=== PATIENT | male | born 1940 | race American Indian/Alaskan Native ===

== ENCOUNTER 2021-11-21 19:16 | Inpatient (IN) | payer MEDICARE ==
[2021-11-21] MEDS ORDERED: SODIUM CHLORIDE 0.9% 1000 ML 1,000 ML IV ONE (19:36)
--- NOTE | 2021-11-21 19:36 | Emergency Department Report ---
ED Altered Mental Status HPI - General Chief Complaint: Altered Mental Status Stated Complaint: ALTERED MENTAL STATUS Time Seen by Provider: 11/21/21 19:35 Source: EMS Mode of arrival: Stretcher Limitations: No Limitations - History of Present Illness Initial Comments: Patient was brought in by EMS for altered mental status. History is obtained from EMS as the patient is confused. Apparently, family called because the patient was confused. He was allegedly discharged from [facility] 2 days ago and has been confused since then. The did not know why he was in the hospital to begin with. Allegedly, before he went to the hospital he was able to have a cogent conversation and was ambulatory. Now, apparently he cannot support his own weight. He is confused and cannot carry a cogent conversation. Family is not present to provide any further history at this time. There was no history of fall. When asked why the patient is here, the patient simply stares blankly. If you asked specifically if he is in pain or having trouble breathing, he answers no. - Related Data Home Medications Medication Instructions Recorded Confirmed Last Taken Furosemide [Lasix TAB] 80 mg PO TID 11/24/21 11/24/21 Unknown Furosemide [Lasix] 40 mg PO BID 11/24/21 11/24/21 Unknown Gabapentin [Neurontin] 300 mg PO BID 11/24/21 11/24/21 Unknown Insulin Glargine [Lantus VIAL] SQ 11/24/21 Unknown Nepafenac [Ilevro] 1 drop OD DAILY 11/24/21 11/24/21 Unknown Sacubitril/Valsartan [Entresto 1 tab PO BID 11/24/21 11/24/21 Unknown 49-51 mg] Spironolactone [Aldactone] 25 mg PO QDAY 11/24/21 11/24/21 Unknown Tamsulosin [Flomax] 0.4 mg PO QDAY 11/24/21 11/24/21 Unknown carvediloL [Coreg] 6.25 mg PO BID 11/24/21 11/24/21 Unknown Allergies Allergy/AdvReac Type Severity Reaction Status Date / Time No Known Allergies Allergy Verified 11/22/21 05:55 ED Review of Systems ROS: Stated complaint: ALTERED MENTAL STATUS Other details as noted in HPI Comment: Unobtainable due to pts medical conditions ED Past Medical Hx - Past Medical History Hx Hypertension: Yes Hx Diabetes: Yes Additional medical history: Cannot be obtained from the patient secondary to altered mental status - Surgical History Additional Surgical History: Cannot be obtained for the patient secondary to altered mental status - Social History Other Social History: Cannot be obtained for the patient secondary to altered mental status - Medications Home Medications: Home Medications Medication Instructions Recorded Confirmed Last Taken Type Furosemide [Lasix TAB] 80 mg PO TID 11/24/21 11/24/21 Unknown History Furosemide [Lasix] 40 mg PO BID 11/24/21 11/24/21 Unknown History Gabapentin [Neurontin] 300 mg PO BID 11/24/21 11/24/21 Unknown History Insulin Glargine [Lantus VIAL] SQ 11/24/21 Unknown History Nepafenac [Ilevro] 1 drop OD DAILY 11/24/21 11/24/21 Unknown History Sacubitril/Valsartan [Entresto 1 tab PO BID 11/24/21 11/24/21 Unknown History 49-51 mg] Spironolactone [Aldactone] 25 mg PO QDAY 11/24/21 11/24/21 Unknown History Tamsulosin [Flomax] 0.4 mg PO QDAY 11/24/21 11/24/21 Unknown History carvediloL [Coreg] 6.25 mg PO BID 11/24/21 11/24/21 Unknown History ED Physical Exam - General Limitations: Altered Mental Status (Confused), Other (Pulse ox noted and nor mal.) General appearance: alert, in no apparent distress - Head Head exam: Present: atraumatic, normocephalic - Eye Eye exam: Present: normal appearance, EOMI. Absent: scleral icterus - ENT ENT exam: Present: normal orophraynx, normal external ear exam - Neck Neck exam: Present: normal inspection. Absent: meningismus - Respiratory Respiratory exam: Present: normal lung sounds bilaterally. Absent: respiratory distress - Cardiovascular Cardiovascular Exam: Present: regular rate, normal rhythm - GI/Abdominal GI/Abdominal exam: Present: soft. Absent: tenderness - Extremities Exam Extremities exam: Present: normal capillary refill. Absent: calf tenderness - Back Exam Back exam: Absent: CVA tenderness (R), CVA tenderness (L) - Neurological Exam Neurological exam: Present: alert, altered, CN II-XII intact, reflexes normal - Psychiatric Psychiatric exam: Present: normal affect, normal mood - Skin Skin exam: Present: warm, dry ED Course Vital Signs 11/21/21 11/22/21 19:28 09:33 Temperature 98.5 F 98.7 F Pulse Rate 61 51 L Respiratory 18 17 Rate Blood Pressure 124/73 121/67 [Left] O2 Sat by Pulse 94 94 Oximetry - Reevaluation(s) Reevaluation #1: 11/21/21 19:36 EMS was met. History cannot be pain from the patient. Labs and CT were ordered. Old records noted. Reevaluation #2: 11/24/21 09:52 Urine was pending when care was signed out. - Lab Data Result diagrams: 11/23/21 04:48 11/23/21 04:48 Lab Results 11/21/21 11/21/21 11/21/21 Range/Units 19:36 19:36 19:37 WBC 6.7 (4.5-11.0) K/mm3 RBC 3.56 L (3.65-5.03) M/mm3 Hgb 10.8 L (11.8-15.2) gm/dl Hct 34.1 L (35.5-45.6) % MCV 96 H (84-94) fl MCH 30 (28-32) pg MCHC 32 (32-34) % RDW 15.3 H (13.2-15.2) % Plt Count 248 (140-440) K/mm3 Add Manual Diff Complete Total Counted 100 Seg Neuts % (Manual) 79.0 H (40.0-70.0) % Lymphocytes % (Manual) 10.0 L (13.4-35.0) % Monocytes % (Manual) 8.0 H (0.0-7.3) % Basophils % (Manual) 3.0 H (0.0-1.8) % Nucleated RBC % Not Reportable Seg Neutrophils # Man 5.3 (1.8-7.7) K/mm3 Band Neutrophils # 0.0 K/mm3 Lymphocytes # (Manual) 0.7 L (1.2-5.4) K/mm3 Abs React Lymphs (Man) 0.0 K/mm3 Monocytes # (Manual) 0.5 (0.0-0.8) K/mm3 Eosinophils # (Manual) 0.0 (0.0-0.4) K/mm3 Basophils # (Manual) 0.2 H (0.0-0.1) K/mm3 Metamyelocytes # 0.0 K/mm3 Myelocytes # 0.0 K/mm3 Promyelocytes # 0.0 K/mm3 Blast Cells # 0.0 K/mm3 WBC Morphology Not Reportable Hypersegmented Neuts Not Reportable Hyposegmented Neuts Not Reportable Hypogranular Neuts Not Reportable Smudge Cells Not Reportable Toxic Granulation Not Reportable Toxic Vacuolation Not Reportable Dohle Bodies Not Reportable Pelger-Huet Anomaly Not Reportable Luan Rods Not Reportable Platelet Estimate Consistent w auto Clumped Platelets Not Reportable Plt Clumps, EDTA Not Reportable Large Platelets Not Reportable Giant Platelets Not Reportable Platelet Satelliting Not Reportable Plt Morphology Comment Not Reportable RBC Morphology Normal Dimorphic RBCs Not Reportable Polychromasia Not Reportable Hypochromasia Not Reportable Poikilocytosis Not Reportable Anisocytosis Not Reportable Microcytosis Not Reportable Macrocytosis Not Reportable Spherocytes Not Reportable Pappenheimer Bodies Not Reportable Sickle Cells Not Reportable Target Cells Not Reportable Tear Drop Cells Not Reportable Ovalocytes Not Reportable Helmet Cells Not Reportable [place] Bodies Not Reportable [place] Rings Not Reportable Star Cells Not Reportable Bite Cells Not Reportable Crenated Cell Not Reportable Elliptocytes Not Reportable Acanthocytes (Spur) Not Reportable Rouleaux Not Reportable Hemoglobin C Crystals Not Reportable Schistocytes Not Reportable Malaria parasites Not Reportable Kalia Bodies Not Reportable Hem Pathologist Commnt No Sodium 142 (137-145) mmol/L Potassium 3.2 L (3.6-5.0) mmol/L Chloride 100.9 (98-107) mmol/L Carbon Dioxide 28 (22-30) mmol/L Anion Gap 16 mmol/L BUN 23 H (9-20) mg/dL Creatinine 1.4 H (0.8-1.3) mg/dL Estimated GFR 59 ml/min BUN/Creatinine Ratio 16 % Glucose 210 H (75-100) mg/dL Calcium 8.2 L (8.4-10.2) mg/dL Total Bilirubin 0.80 (0.1-1.2) mg/dL AST 45 H (5-40) units/L ALT 32 (7-56) units/L Alkaline Phosphatase 133 H (35-129) units/L Ammonia (25-60) umol/L Total Protein 6.5 (6.3-8.2) g/dL Albumin 3.0 L (3.9-5) g/dL Albumin/Globulin Ratio 0.9 % TSH (0.270-4.200) mlU/mL Urine Color Yellow (Yellow) Urine Turbidity Slightly-cloudy (Clear) Urine pH 5.0 (5.0-7.0) Ur Specific [place] 1.010 (1.003-1.030) Urine Protein 30 mg/dl (Negative) mg/dL Urine Glucose (UA) 50 (Negative) mg/dL Urine Ketones Tr (Negative) mg/dL Urine Blood Lg (Negative) Urine Nitrite Neg (Negative) Urine Bilirubin Neg (Negative) Urine Urobilinogen < 2.0 (<2.0) mg/dL Ur Leukocyte Esterase Sm (Negative) Urine WBC (Auto) 48.0 H (0.0-6.0) /HPF Urine RBC (Auto) > 182.0 (0.0-6.0) /HPF U Epithel Cells (Auto) 1.0 (0-13.0) /HPF Urine Mucus Few /HPF 11/21/21 11/21/21 Range/Units 19:37 19:37 WBC (4.5-11.0) K/mm3 RBC (3.65-5.03) M/mm3 Hgb (11.8-15.2) gm/dl Hct (35.5-45.6) % MCV (84-94) fl MCH (28-32) pg MCHC (32-34) % RDW (13.2-15.2) % Plt Count (140-440) K/mm3 Add Manual Diff Total Counted Seg Neuts % (Manual) (40.0-70.0) % Lymphocytes % (Manual) (13.4-35.0) % Monocytes % (Manual) (0.0-7.3) % Basophils % (Manual) (0.0-1.8) % Nucleated RBC % Seg Neutrophils # Man (1.8-7.7) K/mm3 Band Neutrophils # K/mm3 Lymphocytes # (Manual) (1.2-5.4) K/mm3 Abs React Lymphs (Man) K/mm3 Monocytes # (Manual) (0.0-0.8) K/mm3 Eosinophils # (Manual) (0.0-0.4) K/mm3 Basophils # (Manual) (0.0-0.1) K/mm3 Metamyelocytes # K/mm3 Myelocytes # K/mm3 Promyelocytes # K/mm3 Blast Cells # K/mm3 WBC Morphology Hypersegmented Neuts Hyposegmented Neuts Hypogranular Neuts Smudge Cells Toxic Granulation Toxic Vacuolation Dohle Bodies Pelger-Huet Anomaly Luan Rods Platelet Estimate Clumped Platelets Plt Clumps, EDTA Large Platelets Giant Platelets Platelet Satelliting Plt Morphology Comment RBC Morphology Dimorphic RBCs Polychromasia Hypochromasia Poikilocytosis Anisocytosis Microcytosis Macrocytosis Spherocytes Pappenheimer Bodies Sickle Cells Target Cells Tear Drop Cells Ovalocytes Helmet Cells [place] Bodies [place] Rings Star Cells Bite Cells Crenated Cell Elliptocytes Acanthocytes (Spur) Rouleaux Hemoglobin C Crystals Schistocytes Malaria parasites Kalia Bodies Hem Pathologist Commnt Sodium (137-145) mmol/L Potassium (3.6-5.0) mmol/L Chloride (98-107) mmol/L Carbon Dioxide (22-30) mmol/L Anion Gap mmol/L BUN (9-20) mg/dL Creatinine (0.8-1.3) mg/dL Estimated GFR ml/min BUN/Creatinine Ratio % Glucose (75-100) mg/dL Calcium (8.4-10.2) mg/dL Total Bilirubin (0.1-1.2) mg/dL AST (5-40) units/L ALT (7-56) units/L Alkaline Phosphatase (35-129) units/L Ammonia 26.0 (25-60) umol/L Total Protein (6.3-8.2) g/dL Albumin (3.9-5) g/dL Albumin/Globulin Ratio % TSH 4.800 H (0.270-4.200) mlU/mL Urine Color (Yellow) Urine Turbidity (Clear) Urine pH (5.0-7.0) Ur Specific [place] (1.003-1.030) Urine Protein (Negative) mg/dL Urine Glucose (UA) (Negative) mg/dL Urine Ketones (Negative) mg/dL Urine Blood (Negative) Urine Nitrite (Negative) Urine Bilirubin (Negative) Urine Urobilinogen (<2.0) mg/dL Ur Leukocyte Esterase (Negative) Urine WBC (Auto) (0.0-6.0) /HPF Urine RBC (Auto) (0.0-6.0) /HPF U Epithel Cells (Auto) (0-13.0) /HPF Urine Mucus /HPF - Medical Decision Making Patient presents with altered mental status. Labs had been completed. His metabolic work-up was grossly unremarkable. However UA was still pending. At this time, we will await UA. Care has been signed out pending urine evaluation. If he has a urinary tract infection, antibiotics would be indicated. If his urine is clean, he could still be potentially discharged. He does not appear to be septic. He does not have any vital sign instability. There is no evidence of endorgan damage. Critical Care Time: No Critical care attestation.: If time is entered above; I have spent that time in minutes in the direct care of this critically ill patient, excluding procedure time. ED Disposition Clinical Impression: Metabolic encephalopathy, Urinary tract infection, ROSANA (acute kidney injury), Hypokalemia Disposition: ADMITTED INPATIENT Is pt being admited?: No Condition: Stable
[2021-11-21 19:55] LABS: Hematocrit 34.1 % (35.5-45.6); Hemoglobin 10.8 gm/dl (11.8-15.2); Mean Corpuscular HGB Conc 32 % (32-34); Mean Corpuscular Volume 96 fl (84-94); Platelet Count 248 K/mm3 (140-440); Red Blood Count 3.56 M/mm3 (3.65-5.03); Red Cell Distribution Width 15.3 % (13.2-15.2)
[2021-11-21 20:18] LABS: Calcium 8.2 mg/dL (8.4-10.2)
[2021-11-21 20:28] LABS: Total Cells Counted 100
[2021-11-21 20:29] LABS: Platelet Estimate Consistent w Auto; RBC Morphology Normal
--- NOTE | 2021-11-21 21:07 | Cat Scan Report ---
CT BRAIN: 11/21/2021 INDICATION / CLINICAL INFORMATION: Altered mental status. Technologist note:Scanned twice to try to get best images possible. Second scan stood in the room to hold arm down but refused to stop moving COMPARISON: None available. FINDINGS: BRAIN/INTRACRANIAL STRUCTURES: Unenhanced CT images of the brain were obtained. Significant patient motion artifact is present. With good effort by the technologist, diagnostic yon ges were obtained. There is no evidence of acute abnormality. Ventricles and sulci are prominent in size, consistent wit h diffuse cerebral atrophy. There is no evidence of large vessel territory ischemic injury, hemorrhag e, or mass. There are no abnormal extra-axial fluid collections. EXTRACRANIAL STRUCTURES: Unremarkable. IMPRESSION: No acute abnormality. All CT scans at this location are performed using dose reduction to ALARA by means of automated expos ure control. Signer Name: Braydon Burks MD Signed: 11/21/2021 9:02 PM Workstation Name: [id number]
[2021-11-22] MEDS ORDERED: POTASSIUM CHLORIDE ER 20 MEQ TAB PO ONE (01:23)
[2021-11-22 04:28] LABS: Bilirubin,Urine NEG (Negative); Blood,Urine LG (Negative); Color,Urine Yellow (Yellow); Mucus,Urine FEW /HPF; Urobilinogen,Urine < 2.0 mg/dL (<2.0)
[2021-11-22 04:30] LABS: RBC,Urine > 182.0 /HPF (0.0-6.0)
[2021-11-22] MEDS ORDERED: CEFEPIME/NS 2 GM/100 ML 2 GM/100 ML BAG IV ONE (05:32)
--- NOTE | 2021-11-22 05:38 | Event Note ---
Date: 11/22/[address] Chou This is an 81-year-old male who was brought in by family due to altered mental status/confusion. Patient was apparently seen in another hospital and was discharged without a diagnosis. Labs revealed several mild abnormalities including ROSANA with mildly elevated creatinine and hypokalemia with potassium of 3.2. There is no leukocytosis or anemia. Urinalysis is still pending. Urinalysis finally returns revealing 48 WBCs and greater than 182 RBCs consistent with urinary tract infection. I have ordered IV cefepime given that the patient has recent hospital exposure. When I went to reassess the patient to speak about the results he is very altered and is oriented only to person. He is unable to participate in a conversation with me. Given evidence of urine tract infection in a patient with metabolic encephalopathy and several lab abnormalities will admit the patient to medicine for further management and work-up as needed. Given that he is altered I have ordered Noncon CT of the abdomen pelvis to assess for evidence of kidney stones and or obstruction At 5:30 AM I spoke with Dr. Lora, the on-call hospitalist regarding the case. He accepts the patient for admission and will assume care.
[2021-11-22] MEDS ORDERED: HYDROmorphone 1 MG/1 ML INJ IV PRN (05:48)
[2021-11-22] MEDS ORDERED: DEXTROSE 50% IN WATER (25GM) 50 ML SYRINGE IV PRN (05:48)
[2021-11-22] MEDS ORDERED: ACETAMINOPHEN 325 MG TAB PO PRN (05:48)
[2021-11-22] MEDS ORDERED: ALBUTEROL 2.5 MG/3 ML NEBU IH PRN (05:48)
--- NOTE | 2021-11-22 05:56 | History and Physical Report ---
History of Present Illness Date of examination: 11/22/21 Date of admission: 11/22/21 Chief complaint: Altered mental status History of present illness: 81-year-old male with past medical history of hypertension and diabetes was brought to the emergency room in by family due to altered mental status/confusion. Patient discharged from [facility] 2 days ago and has been confused since then. The did not know why he was in the hospital to begin with. Allegedly, before he went to the hospital he was able to have a cogent conversation and was ambulatory. Now, apparently he cannot support his own weight. He is confused and cannot carry a cogent conversation. Labs revealed several mild abnormalities including ROSANA with mildly elevated creatinine and hypokalemia with potassium of 3.2. There is no leukocytosis or anemia. Urinalysis shows UTI. Initial CT scan of the head shows no acute intracranial abnormality Past History Past Medical History: diabetes, hypertension Medications and Allergies Allergies Allergy/AdvReac Type Severity Reaction Status Date / Time No Known Allergies Allergy Unverified 11/21/21 19:22 Active Meds: Active Medications Cefepime HCl (Cefepime/Ns 2 Gm/100 Ml) 2 gm in 100 mls @ 200 mls/hr IV ONCE ONE; Protocol Stop: 11/22/21 06:01 Review of Systems All systems: negative Constitutional: lethargy Neurological: change in mentation Exam - Constitutional Vitals: Temp Pulse Resp BP Pulse Ox 98.5 F 61 18 124/73 94 11/21/21 19:28 11/21/21 19:28 11/21/21 19:28 11/21/21 19:28 11/21/21 19:28 General appearance: Present: no acute distress, well-nourished - EENT Eyes: Present: PERRL ENT: hearing intact, clear oral mucosa - Neck Neck: Present: supple, normal ROM - Respiratory Respiratory effort: normal Respiratory: bilateral: CTA - Cardiovascular Heart Sounds: Present: S1 & S2. Absent: rub, click - Extremities Extremities: pulses symmetrical, No edema Peripheral Pulses: within normal limits - Abdominal General gastrointestinal: Present: soft, non-tender, non-distended, normal bowel sounds Male genitourinary: Present: normal - Integumentary Integumentary: Present: clear, warm, dry - Musculoskeletal Musculoskeletal: strength equal bilaterally, other (Patient is altered mental status) - Psychiatric Psychiatric: other (Patient is confused altered mental status) - Neurologic Neurologic: CNII-XII intact, moves all extremities Results - Labs CBC & Chem 7: 11/21/21 19:36 11/21/21 19:36 Labs: Laboratory Last Values WBC 6.7 K/mm3 (4.5-11.0) 11/21/21 19:36 RBC 3.56 M/mm3 (3.65-5.03) L 11/21/21 19:36 Hgb 10.8 gm/dl (11.8-15.2) L 11/21/21 19:36 Hct 34.1 % (35.5-45.6) L 11/21/21 19:36 MCV 96 fl (84-94) H 11/21/21 19:36 MCH 30 pg (28-32) 11/21/21 19:36 MCHC 32 % (32-34) 11/21/21 19:36 RDW 15.3 % (13.2-15.2) H 11/21/21 19:36 Plt Count 248 K/mm3 (140-440) 11/21/21 19:36 Add Manual Diff Complete 11/21/21 19:36 Total Counted 100 11/21/21 19:36 Seg Neuts % (Manual) 79.0 % (40.0-70.0) H 11/21/21 19:36 Lymphocytes % (Manual) 10.0 % (13.4-35.0) L 11/21/21 19:36 Monocytes % (Manual) 8.0 % (0.0-7.3) H 11/21/21 19:36 Basophils % (Manual) 3.0 % (0.0-1.8) H 11/21/21 19:36 Nucleated RBC % Not Reportable 11/21/21 19:36 Seg Neutrophils # Man 5.3 K/mm3 (1.8-7.7) 11/21/21 19:36 Band Neutrophils # 0.0 K/mm3 11/21/21 19:36 Lymphocytes # (Manual) 0.7 K/mm3 (1.2-5.4) L 11/21/21 19:36 Abs React Lymphs (Man) 0.0 K/mm3 11/21/21 19:36 Monocytes # (Manual) 0.5 K/mm3 (0.0-0.8) 11/21/21 19:36 Eosinophils # (Manual) 0.0 K/mm3 (0.0-0.4) 11/21/21 19:36 Basophils # (Manual) 0.2 K/mm3 (0.0-0.1) H 11/21/21 19:36 Metamyelocytes # 0.0 K/mm3 11/21/21 19:36 Myelocytes # 0.0 K/mm3 11/21/21 19:36 Promyelocytes # 0.0 K/mm3 11/21/21 19:36 Blast Cells # 0.0 K/mm3 11/21/21 19:36 WBC Morphology Not Reportable 11/21/21 19:36 Hypersegmented Neuts Not Reportable 11/21/21 19:36 Hyposegmented Neuts Not Reportable 11/21/21 19:36 Hypogranular Neuts Not Reportable 11/21/21 19:36 Smudge Cells Not Reportable 11/21/21 19:36 Toxic Granulation Not Reportable 11/21/21 19:36 Toxic Vacuolation Not Reportable 11/21/21 19:36 Dohle Bodies Not Reportable 11/21/21 19:36 Pelger-Huet Anomaly Not Reportable 11/21/21 19:36 Luan Rods Not Reportable 11/21/21 19:36 Platelet Estimate Consistent w auto 11/21/21 19:36 Clumped Platelets Not Reportable 11/21/21 19:36 Plt Clumps, EDTA Not Reportable 11/21/21 19:36 Large Platelets Not Reportable 11/21/21 19:36 Giant Platelets Not Reportable 11/21/21 19:36 Platelet Satelliting Not Reportable 11/21/21 19:36 Plt Morphology Comment Not Reportable 11/21/21 19:36 RBC Morphology Normal 11/21/21 19:36 Dimorphic RBCs Not Reportable 11/21/21 19:36 Polychromasia Not Reportable 11/21/21 19:36 Hypochromasia Not Reportable 11/21/21 19:36 Poikilocytosis Not Reportable 11/21/21 19:36 Anisocytosis Not Reportable 11/21/21 19:36 Microcytosis Not Reportable 11/21/21 19:36 Macrocytosis Not Reportable 11/21/21 19:36 Spherocytes Not Reportable 11/21/21 19:36 Pappenheimer Bodies Not Reportable 11/21/21 19:36 Sickle Cells Not Reportable 11/21/21 19:36 Target Cells Not Reportable 11/21/21 19:36 Tear Drop Cells Not Reportable 11/21/21 19:36 Ovalocytes Not Reportable 11/21/21 19:36 Helmet Cells Not Reportable 11/21/21 19:36 Christie-[place] Bodies Not Reportable 11/21/21 19:36 [place] Rings Not Reportable 11/21/21 19:36 Star Cells Not Reportable 11/21/21 19:36 Bite Cells Not Reportable 11/21/21 19:36 Crenated Cell Not Reportable 11/21/21 19:36 Elliptocytes Not Reportable 11/21/21 19:36 Acanthocytes (Spur) Not Reportable 11/21/21 19:36 Rouleaux Not Reportable 11/21/21 19:36 Hemoglobin C Crystals Not Reportable 11/21/21 19:36 Schistocytes Not Reportable 11/21/21 19:36 Malaria parasites Not Reportable 11/21/21 19:36 Kalia Bodies Not Reportable 11/21/21 19:36 Hem Pathologist Commnt No 11/21/21 19:36 Sodium 142 mmol/L (137-145) 11/21/21 19:36 Potassium 3.2 mmol/L (3.6-5.0) L 11/21/21 19:36 Chloride 100.9 mmol/L (98-107) 11/21/21 19:36 Carbon Dioxide 28 mmol/L (22-30) 11/21/21 19:36 Anion Gap 16 mmol/L 11/21/21 19:36 BUN 23 mg/dL (9-20) H 11/21/21 19:36 Creatinine 1.4 mg/dL (0.8-1.3) H 11/21/21 19:36 Estimated GFR 59 ml/min 11/21/21 19:36 BUN/Creatinine Ratio 16 % 11/21/21 19:36 Glucose 210 mg/dL (75-100) H 11/21/21 19:36 Calcium 8.2 mg/dL (8.4-10.2) L 11/21/21 19:36 Total Bilirubin 0.80 mg/dL (0.1-1.2) 11/21/21 19:36 AST 45 units/L (5-40) H 11/21/21 19:36 ALT 32 units/L (7-56) 11/21/21 19:36 Alkaline Phosphatase 133 units/L (35-129) H 11/21/21 19:36 Ammonia 26.0 umol/L (25-60) 11/21/21 19:37 Total Protein 6.5 g/dL (6.3-8.2) 11/21/21 19:36 Albumin 3.0 g/dL (3.9-5) L 11/21/21 19:36 Albumin/Globulin Ratio 0.9 % 11/21/21 19:36 TSH 4.800 mlU/mL (0.270-4.200) H 11/21/21 19:37 Urine Color Yellow (Yellow) 11/21/21 19:37 Urine Turbidity Slightly-cloudy (Clear) 11/21/21 19:37 Urine pH 5.0 (5.0-7.0) 11/21/21 19:37 Ur Specific [place] 1.010 (1.003-1.030) 11/21/21 19:37 Urine Protein 30 mg/dl mg/dL (Negative) 11/21/21 19:37 Urine Glucose (UA) 50 mg/dL (Negative) 11/21/21 19:37 Urine Ketones Tr mg/dL (Negative) 11/21/21 19:37 Urine Blood Lg (Negative) 11/21/21 19:37 Urine Nitrite Neg (Negative) 11/21/21 19:37 Urine Bilirubin Neg (Negative) 11/21/21 19:37 Urine Urobilinogen < 2.0 mg/dL (<2.0) 11/21/21 19:37 Ur Leukocyte Esterase Sm (Negative) 11/21/21 19:37 Urine WBC (Auto) 48.0 /HPF (0.0-6.0) H 11/21/21 19:37 Urine RBC (Auto) > 182.0 /HPF (0.0-6.0) 11/21/21 19:37 U Epithel Cells (Auto) 1.0 /HPF (0-13.0) 11/21/21 19:37 Urine Mucus Few /HPF 11/21/21 19:37 - Imaging and Cardiology CT Scan - head: report reviewed Assessment and Plan VTE prophylaxis?: Chemical Plan of care discussed with patient/family: Yes - Patient Problems (1) Acute metabolic encephalopathy Current Visit: Yes Status: Acute Plan to address problem: Admit the patient to the medical floor. Metabolic encephalopathy most likely secondary to UTI and ROSANA oxygen via nasal cannula 3 L/min half-normal saline at the rate of 100 cc/h. Rocephin 2 g IV daily. We do the blood culture urine culture. If needed will consult neurology for evaluation (2) Diabetes Current Visit: Yes Status: Acute Plan to address problem: Accu-Chek before meals and at bedtime with moderate dose Humalog coverage. Diabetic education. 1800 kcal ADA diet. Recheck BMP in the morning (3) High blood pressure Current Visit: Yes Status: Acute Plan to address problem: Hydralazine 10 mg IV every 6 hours as needed. We will monitor the blood pressure closely (4) ROSANA (acute kidney injury) Current Visit: Yes Status: Acute Plan to address problem: Avoid nephrotoxic drug. Half-normal saline at the rate of 100 cc/h. Renally dose medication. Recheck BMP in the morning (5) Hypokalemia Current Visit: Yes Status: Acute Plan to address problem: Potassium is supplemented. Recheck BMP in the morning (6) Urinary tract infection Current Visit: Yes Status: Acute Plan to address problem: Rocephin 2 g IV daily. We do the blood culture urine culture. (7) DVT prophylaxis Current Visit: Yes Status: Acute Plan to address problem: Heparin 5000 units subcu every 8 hours for DVT prophylaxis. Pepcid 20 mg p.o. twice daily for GI prophylaxis. Patient is a full code
[2021-11-22] MEDS ORDERED: hydrALAZINE 20 MG/1 ML INJ IV PRN (05:58)
--- NOTE | 2021-11-22 07:55 | Cat Scan Report ---
CT abdomen pelvis wo con INDICATION / CLINICAL INFORMATION: U.T.I., possible renal stone(s). TECHNIQUE: Axial CT imaging of abdomen and pelvis was obtained without contrast. Coronal and sagittal reformatte d imaging obtained and reviewed. All CT scans at this location are performed using CT dose reduction for ALARA by means of automated exposure control. COMPARISON: None available. FINDINGS: CT abdomen without contrast demonstrates grossly normal appearance of the liver, spleen, pancreas, le ft kidney, and adrenal glands. There is a 2.9 cm hypodense mass arising from the posterior aspect of the right kidney. There is a 2.5 cm hypodense mass arising from the medial aspect of the right kidney I suspect both of these right renal masses will represent cysts, but density measurements are around 30 HU. Both right renal masses should be further evaluated with renal ultrasound to determine if cys tic or solid. No intrarenal calculi or obstruction. Abdominal aorta is unremarkable. CT pelvis without contrast demonstrates large fecal impaction within the rectum. The transverse diame ter of the distended rectum is 9 cm. Large amount of retained stool is noted throughout the remainder of the colon. Otherwise the GI tract is unremarkable. Prostate gland is mildly enlarged. The appendix is not identified and presumably has been removed. Visualized lung bases show groundglass opacities throughout both bases suspicious for multifocal haseeb l pneumonia. The left hemidiaphragm is markedly elevated. Review of osseous structures demonstrates screws within the right hip. There is old appearing evert tanna fracture of L2. 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 No ac [place] skeletal abnormality of significance is noted. IMPRESSION: 1. Groundglass opacities are present throughout both visualized lung bases highly suggestive for Covi d pneumonia. Please correlate clinically. 2. Large fecal impaction within the rectum. The rectum has a transverse diameter of 9 cm. 3. Incidentally noted are 2 right renal masses which do not meet criteria for simple cyst on CT scan. Recommend right renal ultrasound when the patient is clinically able to determine if cystic or solid . 4. Markedly elevated left hemidiaphragm. 5. Mild/moderate enlargement of the prostate gland. 6. Old appearing compression fracture of L2 without retropulsion. Signer Name: Neisha Madrigal MD Signed: 11/22/2021 7:51 AM Workstation Name: [id number]
[2021-11-22] MEDS: HEPARIN 5,000 UNIT/1 ML VIAL SUB-Q SCH ×3 (08:08→22:29)
[2021-11-22] MEDS: cefTRIAXone/NS 2 GM/100 ML 2 GM/100 ML BAG IV SCH (08:09)
[2021-11-22] MEDS: INSULIN LISPRO 100 UNIT/ML SUB-Q SCH ×4 (08:09→22:29)
[2021-11-22] MEDS: IPRATROPIUM/ALBUTEROL SULFATE 3 ML AMPUL.NEB IH SCH ×3 (08:10→23:17)
[2021-11-22] MEDS: SODIUM CHLORIDE 0.45% 1000 ML 1,000 ML IV SCH (10:17)
[2021-11-22] MEDS: MORPHINE 2 MG/1 ML INJ IV PRN (22:43)
[2021-11-23 05:41] LABS: Basophils % (Auto) 0.6 % (0.0-1.8); Eosinophils % (Auto) 0.1 % (0.0-4.3); Hematocrit 30.9 % (35.5-45.6); Hemoglobin 9.8 gm/dl (11.8-15.2); Lymphocytes # (Auto) 1.1 K/mm3 (1.2-5.4); Lymphocytes % (Auto) 13.4 % (13.4-35.0); Mean Corpuscular HGB Conc 32 % (32-34); Mean Corpuscular Volume 96 fl (84-94); Monocytes # (Auto) 0.7 K/mm3 (0.0-0.8); Monocytes % (Auto) 9.4 % (0.0-7.3); Platelet Count 219 K/mm3 (140-440); Red Blood Count 3.22 M/mm3 (3.65-5.03); Red Cell Distribution Width 14.8 % (13.2-15.2)
[2021-11-23] MEDS: cefTRIAXone/NS 2 GM/100 ML 2 GM/100 ML BAG IV SCH (05:44)
[2021-11-23] MEDS: HEPARIN 5,000 UNIT/1 ML VIAL SUB-Q SCH ×3 (05:44→22:04)
[2021-11-23] MEDS: SODIUM CHLORIDE 0.45% 1000 ML 1,000 ML IV SCH ×2 (06:01→18:53)
[2021-11-23 06:03] LABS: BUN/Creatinine Ratio 18; Blood Urea Nitrogen 24 mg/dL (9-20); Calcium 8.1 mg/dL (8.4-10.2); Hemolysis Index 8
[2021-11-23] MEDS: INSULIN LISPRO 100 UNIT/ML SUB-Q SCH ×4 (08:22→22:04)
[2021-11-23] MEDS: IPRATROPIUM/ALBUTEROL SULFATE 3 ML AMPUL.NEB IH SCH ×4 (10:50→22:53)
[2021-11-23] MEDS ORDERED: POTASSIUM CHLORIDE ER 20 MEQ TAB PO ONE (16:00)
--- NOTE | 2021-11-23 19:37 | Progress Note ---
Assessment and Plan - Patient Problems (1) Acute metabolic encephalopathy Current Visit: Yes Status: Acute Plan to address problem: Patient more alert today. Says that he can walk (2) Diabetes Current Visit: Yes Status: Acute Plan to address problem: Blood sugar coverage Check hemoglobin A1c (3) High blood pressure Current Visit: Yes Status: Acute Plan to address problem: Hydralazine 10 mg IV every 6 hours as needed. We will monitor the blood pressure closely (4) ROSANA (acute kidney injury) Current Visit: Yes Status: Acute Plan to address problem: Improved (5) Hypokalemia Current Visit: Yes Status: Acute Plan to address problem: Supplemented (6) Urinary tract infection Current Visit: Yes Status: Acute Plan to address problem: Rocephin 2 g IV daily. We do the blood culture urine culture. (7) DVT prophylaxis Current Visit: Yes Status: Acute Plan to address problem: Heparin 5000 units subcu every 8 hours for DVT prophylaxis. Pepcid 20 mg p.o. twice daily for GI prophylaxis. Patient is a full code 8) severe debility Physical therapy and Occupational Therapy tomorrow Advanced care planning Subjective Date of service: 11/23/21 Principal diagnosis: Acute encephalopathy Interval history: 81-year-old male with past medical history of hypertension and diabetes was brought to the emergency room in by family due to altered mental status/confusion. Patient discharged from [facility] 2 days ago and has been confused since then. The did not know why he was in the hospital to begin with. Allegedly, before he went to the hospital he was able to have a cogent conversation and was ambulatory. Now, apparently he cannot support his own weight. He is confused and cannot carry a cogent conversation. Labs revealed several mild abnormalities including ROSANA with mildly elevated creatinine and hypokalemia with potassium of 3.2. There is no leukocytosis or anemia. Urinalysis shows UTI. Initial CT scan of the head shows no acute intracranial abnormality November 23, 2021 Patient more alert Not able to give history Objective - Constitutional Vitals: Vital Signs - 12hr 11/23/21 11/23/21 11/23/21 08:05 10:00 11:22 Temperature 98.8 F Pulse Rate 56 L Respiratory 18 19 18 Rate Blood Pressure 140/56 O2 Sat by Pulse 80 L 95 91 Oximetry 11/23/21 11/23/21 12:26 16:40 Temperature 98.9 F 98.8 F Pulse Rate 52 L 55 L Respiratory 18 18 Rate Blood Pressure 139/71 132/60 O2 Sat by Pulse 90 90 Oximetry General appearance: Present: no acute distress, well-nourished - EENT Eyes: PERRL, EOM intact ENT: hearing intact, clear oral mucosa Ears: bilateral: normal - Neck Neck: supple, normal ROM - Respiratory Respiratory effort: normal Respiratory: bilateral: CTA - Breasts Breasts: normal - Cardiovascular Heart rate: 78 Rhythm: regular Heart Sounds: Present: S1 & S2. Absent: gallop, rub Extremities: no ischemia, pulses intact, No edema, normal color, Full ROM - Gastrointestinal General gastrointestinal: Present: soft, non-tender, non-distended, normal bowel sounds - Genitourinary Male genitourinary: normal - Integumentary Integumentary: clear, warm, dry - Musculoskeletal Musculoskeletal: 1, strength equal bilaterally - Neurologic Neurologic: moves all extremities - Psychiatric Psychiatric: memory intact, appropriate mood/affect, intact judgment & insight - Allied health notes Allied health notes reviewed: nursing, case management - Labs CBC & Chem 7: 11/25/21 05:27 11/25/21 05:27 Labs: Abnormal lab results 11/22/21 11/23/21 11/23/21 Range/Units 20:42 04:48 04:48 RBC 3.22 L (3.65-5.03) M/mm3 Hgb 9.8 L (11.8-15.2) gm/dl Hct 30.9 L (35.5-45.6) % MCV 96 H (84-94) fl [place] % (Auto) 9.4 H (0.0-7.3) % Lymph # (Auto) 1.1 L (1.2-5.4) K/mm3 Seg Neutrophils % 76.5 H (40.0-70.0) % Potassium 3.1 L (3.6-5.0) mmol/L BUN 24 H (9-20) mg/dL Glucose 112 H (75-100) mg/dL POC Glucose 155 H (70-105) mg/dL Calcium 8.1 L (8.4-10.2) mg/dL 11/23/21 11/23/21 11/23/21 Range/Units 08:03 12:24 16:37 RBC (3.65-5.03) M/mm3 Hgb (11.8-15.2) gm/dl Hct (35.5-45.6) % MCV (84-94) fl [place] % (Auto) (0.0-7.3) % Lymph # (Auto) (1.2-5.4) K/mm3 Seg Neutrophils % (40.0-70.0) % Potassium (3.6-5.0) mmol/L BUN (9-20) mg/dL Glucose (75-100) mg/dL POC Glucose 111 H 106 H 112 H (70-105) mg/dL Calcium (8.4-10.2) mg/dL
[2021-11-24] MEDS: IPRATROPIUM/ALBUTEROL SULFATE 3 ML AMPUL.NEB IH SCH ×4 (03:56→20:42)
[2021-11-24] MEDS: HEPARIN 5,000 UNIT/1 ML VIAL SUB-Q SCH ×3 (06:14→22:00)
[2021-11-24] MEDS: cefTRIAXone/NS 2 GM/100 ML 2 GM/100 ML BAG IV SCH (06:14)
[2021-11-24] MEDS: SODIUM CHLORIDE 0.45% 1000 ML 1,000 ML IV SCH (06:15)
[2021-11-24] MEDS: INSULIN LISPRO 100 UNIT/ML SUB-Q SCH ×2 (12:34→22:07)
[2021-11-24] MEDS ORDERED: POTASSIUM CHLORIDE ER 20 MEQ TAB PO NR (13:30)
--- NOTE | 2021-11-24 15:38 | Progress Note ---
Assessment and Plan - Patient Problems (1) Acute metabolic encephalopathy Current Visit: Yes Status: Acute Plan to address problem: Improved Unable to give much history Discussed with daughter Daughters number on case management notes (2) Diabetes Plan to address problem: Blood sugar coverage Long-acting insulin started at 10 units (3) High blood pressure Current Visit: Yes Status: Acute Plan to address problem: Hydralazine 10 mg IV every 6 hours as needed. We will monitor the blood pressure closely (4) ROSANA (acute kidney injury) Current Visit: Yes Status: Acute Plan to address problem: Improved (5) Hypokalemia Current Visit: Yes Status: Acute Plan to address problem: Supplemented (6) Urinary tract infection Current Visit: Yes Status: Acute Plan to address problem: Rocephin 2 g IV daily. We do the blood culture urine culture. (7) DVT prophylaxis Current Visit: Yes Status: Acute Plan to address problem: Heparin 5000 units subcu every 8 hours for DVT prophylaxis. Pepcid 20 mg p.o. twice daily for GI prophylaxis. Patient is a full code 8) severe debility Physical therapy and Occupational Therapy tomorrow Discharge planning issues Daughter wants long-term care Discussed with daughter Cade Pena, daughter, . Per daughter patient lives with his spouse Tatyana Pena [phone] C, [phone] H. They are not legally ; she is the only child for her mother Daughter stated she will be the one making decision for her father, his spouse verbalized not able to care for him at home, she is considering emt intermediate Subjective Date of service: 11/24/21 Principal diagnosis: Acute encephalopathy, UTI Interval history: 81-year-old male with past medical history of hypertension and diabetes was brought to the emergency room in by family due to altered mental status/confusion. Patient discharged from [facility] 2 days ago and has been confused since then. The did not know why he was in the hospital to begin with. Allegedly, before he went to the hospital he was able to have a cogent conversation and was ambulatory. Now, apparently he cannot support his own weight. He is confused and cannot carry a cogent conversation. Labs revealed several mild abnormalities including ROSANA with mildly elevated creatinine and hypokalemia with potassium of 3.2. There is no leukocytosis or anemia. Urinalysis shows UTI. Initial CT scan of the head shows no acute intracranial abnormality November 24, 20192019 More alert and oriented Unable to give history Discussed with family and daughter They want long-term care Objective - Constitutional Vitals: Vital Signs - 12hr 11/24/21 11/24/21 11/24/21 05:03 05:04 08:08 Temperature 98.1 F Pulse Rate 72 68 Respiratory 18 18 Rate Blood Pressure 123/68 O2 Sat by Pulse 96 96 96 Oximetry General appearance: Present: no acute distress, well-nourished - EENT Eyes: PERRL, EOM intact ENT: hearing intact, clear oral mucosa Ears: bilateral: normal - Neck Neck: supple, normal ROM - Respiratory Respiratory effort: normal Respiratory: bilateral: CTA - Breasts Breasts: normal - Cardiovascular Heart rate: 78 Rhythm: regular Heart Sounds: Present: S1 & S2. Absent: gallop, rub Extremities: pulses intact, No edema, normal color, Full ROM - Gastrointestinal General gastrointestinal: Present: soft, non-tender, non-distended, normal bowel sounds - Genitourinary Male genitourinary: normal - Integumentary Integumentary: clear, warm, dry - Musculoskeletal Musculoskeletal: generalized weakness - Neurologic Neurologic: moves all extremities, other (Alert but not oriented) - Psychiatric Psychiatric: other (Alert but not oriented) - Labs CBC & Chem 7: 11/25/21 05:27 11/25/21 05:27 Labs: Abnormal lab results 11/23/21 11/23/21 11/24/21 Range/Units 16:37 20:45 11:47 POC Glucose 112 H 179 H 142 H (70-105) mg/dL
[2021-11-25] MEDS: IPRATROPIUM/ALBUTEROL SULFATE 3 ML AMPUL.NEB IH SCH ×2 (03:48→09:52)
[2021-11-25] MEDS: cefTRIAXone/NS 2 GM/100 ML 2 GM/100 ML BAG IV SCH (06:09)
[2021-11-25] MEDS: HEPARIN 5,000 UNIT/1 ML VIAL SUB-Q SCH ×3 (06:11→21:52)
[2021-11-25] MEDS: SODIUM CHLORIDE 0.45% 1000 ML 1,000 ML IV SCH (06:24)
[2021-11-25 06:44] LABS: Basophils # (Auto) 0.1 K/mm3 (0.0-0.1); Basophils % (Auto) 0.5 % (0.0-1.8); Eosinophils % (Auto) 0.2 % (0.0-4.3); Hematocrit 31.1 % (35.5-45.6); Hemoglobin 9.6 gm/dl (11.8-15.2); Lymphocytes # (Auto) 1.1 K/mm3 (1.2-5.4); Lymphocytes % (Auto) 10.5 % (13.4-35.0); Mean Corpuscular HGB Conc 31 % (32-34); Mean Corpuscular Volume 97 fl (84-94); Monocytes # (Auto) 0.7 K/mm3 (0.0-0.8); Monocytes % (Auto) 6.8 % (0.0-7.3); Platelet Count 253 K/mm3 (140-440); Red Blood Count 3.22 M/mm3 (3.65-5.03); Red Cell Distribution Width 15.6 % (13.2-15.2)
[2021-11-25 07:05] LABS: Alanine Aminotransferase 39 units/L (7-56); Albumin 2.5 g/dL (3.9-5); BUN/Creatinine Ratio 14; Blood Urea Nitrogen 17 mg/dL (9-20); Calcium 7.8 mg/dL (8.4-10.2); Hemolysis Index 2
[2021-11-25] MEDS: INSULIN LISPRO 100 UNIT/ML SUB-Q SCH ×5 (09:00→21:58)
[2021-11-25] MEDS ORDERED: ALBUTEROL 2.5 MG/3 ML NEBU IH PRN (12:00)
--- NOTE | 2021-11-25 13:51 | Progress Note ---
Assessment and Plan Assessment and plan: 81-year-old male with past medical history of hypertension and diabetes was brought to the emergency room in by family due to altered mental status/confusion. Patient discharged from [facility] 2 days ago and has been confused since then. The did not know why he was in the hospital to begin with. Allegedly, before he went to the hospital he was able to have a cogent conversation and was ambulatory. Now, apparently he cannot support his own weight. He is confused and cannot carry a cogent conversation. Labs revealed several mild abnormalities including ROSANA with mildly elevated creatinine and hypokalemia with potassium of 3.2. There is no leukocytosis or anemia. Urinalysis shows UTI. Initial CT scan of the head shows no acute intracranial abnormality November 24, 20192019 More alert and oriented Unable to give history Discussed with family and daughter They want long-term care 11/25: Patient seen and examined this morning noted on high flow oxygen unsure when she became toxic. Nevertheless pulmonary and ID consult patient started on steroid therapy. Will likely need remdesivir if renal function continues to show improvement We will also give Fleet enema just no documented bowel movement at this time. On CT imaging shows a large fecal material in the rectum. Called and updated Cade Pena, daughter, # Acute metabolic encephalopathy Current Visit: Yes Status: Acute Plan to address problem: Improved Unable to give much history Discussed with daughter Daughters number on case management notes # acute hypoxic respiratory failure secondary to COVID-19 #COVID-19 pneumonia #diabetes Plan to address problem: Blood sugar coverage Long-acting insulin started at 10 units # High blood pressure Current Visit: Yes Status: Acute Plan to address problem: Hydralazine 10 mg IV every 6 hours as needed. We will monitor the blood pressure closely # ROSANA (acute kidney injury) secondary to vasomotor nephropathy Current Visit: Yes Status: Acute Plan to address problem: Improved # Hypokalemia Current Visit: Yes Status: Acute Plan to address problem: Supplemented # Urinary tract infection Current Visit: Yes Status: Acute Plan to address problem: Rocephin 2 g IV daily. We do the blood culture urine culture. # Constipation #DVT prophylaxis Current Visit: Yes Status: Acute Plan to address problem: Heparin 5000 units subcu every 8 hours for DVT prophylaxis. Pepcid 20 mg p.o. twice daily for GI prophylaxis. Patient is a full code # severe debility Physical therapy and Occupational Therapy tomorrow Discharge planning issues Daughter wants long-term care Discussed with daughter Cade Pena, daughter, . Per daughter patient lives with his spouse Tatyana Pena [phone] C, [phone] H. They are not legally ; she is the only child for her mother Daughter stated she will be the one making decision for her father, his spouse verbalized not able to care for him at home, she is considering prison History Interval history: Patient seen and examined today remains on high flow oxygen which appears to have been started sometime last night cannot get full detail when this was started. Hospitalist Physical - Physical exam Narrative exam: General appearance: Present: no acute distress, well-nourished - EENT Eyes: PERRL, EOM intact ENT: hearing intact, clear oral mucosa Ears: bilateral: normal - Neck Neck: supple, normal ROM - Respiratory Respiratory effort: normal Respiratory: bilateral: CTA - Breasts Breasts: normal - Cardiovascular Heart rate: 78 Rhythm: regular Heart Sounds: Present: S1 & S2. Absent: gallop, rub Extremities: pulses intact, No edema, normal color, Full ROM - Gastrointestinal General gastrointestinal: Present: soft, non-tender, non-distended, normal bowel sounds - Genitourinary Male genitourinary: normal - Integumentary Integumentary: clear, warm, dry - Musculoskeletal Musculoskeletal: generalized weakness - Neurologic Neurologic: moves all extremities, other (Alert but not oriented) - Psychiatric Psychiatric: other (Alert but not oriented) - Constitutional Vitals: Temp Pulse Resp BP Pulse Ox 97.9 F 62 20 95/53 71 L 11/25/21 11:59 11/25/21 09:52 11/25/21 11:59 11/25/21 11:59 11/25/21 11:59 General appearance: Present: no acute distress, well-nourished Results - Labs CBC & Chem 7: 11/25/21 05:27 11/25/21 05:27 Labs: Laboratory Last Values WBC 10.6 K/mm3 (4.5-11.0) 11/25/21 05:27 RBC 3.22 M/mm3 (3.65-5.03) L 11/25/21 05:27 Hgb 9.6 gm/dl (11.8-15.2) L 11/25/21 05:27 Hct 31.1 % (35.5-45.6) L 11/25/21 05:27 MCV 97 fl (84-94) H 11/25/21 05:27 MCH 30 pg (28-32) 11/25/21 05:27 MCHC 31 % (32-34) L 11/25/21 05:27 RDW 15.6 % (13.2-15.2) H 11/25/21 05:27 Plt Count 253 K/mm3 (140-440) 11/25/21 05:27 Lymph % (Auto) 10.5 % (13.4-35.0) L 11/25/21 05:27 [place] % (Auto) 6.8 % (0.0-7.3) 11/25/21 05:27 Eos % (Auto) 0.2 % (0.0-4.3) 11/25/21 05:27 Baso % (Auto) 0.5 % (0.0-1.8) 11/25/21 05:27 Lymph # (Auto) 1.1 K/mm3 (1.2-5.4) L 11/25/21 05:27 [place] # (Auto) 0.7 K/mm3 (0.0-0.8) 11/25/21 05:27 Eos # (Auto) 0.0 K/mm3 (0.0-0.4) 11/25/21 05:27 Baso # (Auto) 0.1 K/mm3 (0.0-0.1) 11/25/21 05:27 Add Manual Diff Complete 11/21/21 19:36 Total Counted 100 11/21/21 19:36 Seg Neutrophils % 82.0 % (40.0-70.0) H 11/25/21 05:27 Seg Neuts % (Manual) 79.0 % (40.0-70.0) H 11/21/21 19:36 Lymphocytes % (Manual) 10.0 % (13.4-35.0) L 11/21/21 19:36 Monocytes % (Manual) 8.0 % (0.0-7.3) H 11/21/21 19:36 Basophils % (Manual) 3.0 % (0.0-1.8) H 11/21/21 19:36 Nucleated RBC % Not Reportable 11/21/21 19:36 Seg Neutrophils # 8.7 K/mm3 (1.8-7.7) H 11/25/21 05:27 Seg Neutrophils # Man 5.3 K/mm3 (1.8-7.7) 11/21/21 19:36 Band Neutrophils # 0.0 K/mm3 11/21/21 19:36 Lymphocytes # (Manual) 0.7 K/mm3 (1.2-5.4) L 11/21/21 19:36 Abs React Lymphs (Man) 0.0 K/mm3 11/21/21 19:36 Monocytes # (Manual) 0.5 K/mm3 (0.0-0.8) 11/21/21 19:36 Eosinophils # (Manual) 0.0 K/mm3 (0.0-0.4) 11/21/21 19:36 Basophils # (Manual) 0.2 K/mm3 (0.0-0.1) H 11/21/21 19:36 Metamyelocytes # 0.0 K/mm3 11/21/21 19:36 Myelocytes # 0.0 K/mm3 11/21/21 19:36 Promyelocytes # 0.0 K/mm3 11/21/21 19:36 Blast Cells # 0.0 K/mm3 11/21/21 19:36 WBC Morphology Not Reportable 11/21/21 19:36 Hypersegmented Neuts Not Reportable 11/21/21 19:36 Hyposegmented Neuts Not Reportable 11/21/21 19:36 Hypogranular Neuts Not Reportable 11/21/21 19:36 Smudge Cells Not Reportable 11/21/21 19:36 Toxic Granulation Not Reportable 11/21/21 19:36 Toxic Vacuolation Not Reportable 11/21/21 19:36 Dohle Bodies Not Reportable 11/21/21 19:36 Pelger-Huet Anomaly Not Reportable 11/21/21 19:36 Luan Rods Not Reportable 11/21/21 19:36 Platelet Estimate Consistent w auto 11/21/21 19:36 Clumped Platelets Not Reportable 11/21/21 19:36 Plt Clumps, EDTA Not Reportable 11/21/21 19:36 Large Platelets Not Reportable 11/21/21 19:36 Giant Platelets Not Reportable 11/21/21 19:36 Platelet Satelliting Not Reportable 11/21/21 19:36 Plt Morphology Comment Not Reportable 11/21/21 19:36 RBC Morphology Normal 11/21/21 19:36 Dimorphic RBCs Not Reportable 11/21/21 19:36 Polychromasia Not Reportable 11/21/21 19:36 Hypochromasia Not Reportable 11/21/21 19:36 Poikilocytosis Not Reportable 11/21/21 19:36 Anisocytosis Not Reportable 11/21/21 19:36 Microcytosis Not Reportable 11/21/21 19:36 Macrocytosis Not Reportable 11/21/21 19:36 Spherocytes Not Reportable 11/21/21 19:36 Pappenheimer Bodies Not Reportable 11/21/21 19:36 Sickle Cells Not Reportable 11/21/21 19:36 Target Cells Not Reportable 11/21/21 19:36 Tear Drop Cells Not Reportable 11/21/21 19:36 Ovalocytes Not Reportable 11/21/21 19:36 Helmet Cells Not Reportable 11/21/21 19:36 [place] Bodies Not Reportable 11/21/21 19:36 [place] Rings Not Reportable 11/21/21 19:36 [place] Cells Not Reportable 11/21/21 19:36 Bite Cells Not Reportable 11/21/21 19:36 Crenated Cell Not Reportable 11/21/21 19:36 Elliptocytes Not Reportable 11/21/21 19:36 Acanthocytes (Spur) Not Reportable 11/21/21 19:36 Rouleaux Not Reportable 11/21/21 19:36 Hemoglobin C Crystals Not Reportable 11/21/21 19:36 Schistocytes Not Reportable 11/21/21 19:36 Malaria parasites Not Reportable 11/21/21 19:36 Kalia Bodies Not Reportable 11/21/21 19:36 Hem Pathologist Commnt No 11/21/21 19:36 Sodium 146 mmol/L (137-145) H 11/25/21 05:27 Potassium 3.9 mmol/L (3.6-5.0) D 11/25/21 05:27 Chloride 108.2 mmol/L (98-107) H 11/25/21 05:27 Carbon Dioxide 23 mmol/L (22-30) 11/25/21 05:27 Anion Gap 19 mmol/L 11/25/21 05:27 BUN 17 mg/dL (9-20) 11/25/21 05:27 Creatinine 1.2 mg/dL (0.8-1.3) 11/25/21 05:27 Estimated GFR > 60 ml/min 11/25/21 05:27 BUN/Creatinine Ratio 14 % 11/25/21 05:27 Glucose 145 mg/dL (75-100) H 11/25/21 05:27 POC Glucose 209 mg/dL (70-105) H 11/24/21 20:52 Calcium 7.8 mg/dL (8.4-10.2) L 11/25/21 05:27 Total Bilirubin 0.50 mg/dL (0.1-1.2) 11/25/21 05:27 AST 67 units/L (5-40) H 11/25/21 05:27 ALT 39 units/L (7-56) 11/25/21 05:27 Alkaline Phosphatase 127 units/L (35-129) 11/25/21 05:27 Ammonia 26.0 umol/L (25-60) 11/21/21 19:37 C-Reactive Protein 25.00 mg/dL (0.00-1.30) H 11/25/21 05:27 Total Protein 5.1 g/dL (6.3-8.2) L D 11/25/21 05:27 Albumin 2.5 g/dL (3.9-5) L 11/25/21 05:27 Albumin/Globulin Ratio 1.0 % 11/25/21 05:27 TSH 4.800 mlU/mL (0.270-4.200) H 11/21/21 19:37 Urine Color Yellow (Yellow) 11/21/21 19:37 Urine Turbidity Slightly-cloudy (Clear) 11/21/21 19:37 Urine pH 5.0 (5.0-7.0) 11/21/21 19:37 Ur Specific [place] 1.010 (1.003-1.030) 11/21/21 19:37 Urine Protein 30 mg/dl mg/dL (Negative) 11/21/21 19:37 Urine Glucose (UA) 50 mg/dL (Negative) 11/21/21 19:37 Urine Ketones Tr mg/dL (Negative) 11/21/21 19:37 Urine Blood Lg (Negative) 11/21/21 19:37 Urine Nitrite Neg (Negative) 11/21/21 19:37 Urine Bilirubin Neg (Negative) 11/21/21 19:37 Urine Urobilinogen < 2.0 mg/dL (<2.0) 11/21/21 19:37 Ur Leukocyte Esterase Sm (Negative) 11/21/21 19:37 Urine WBC (Auto) 48.0 /HPF (0.0-6.0) H 11/21/21 19:37 Urine RBC (Auto) > 182.0 /HPF (0.0-6.0) 11/21/21 19:37 U Epithel Cells (Auto) 1.0 /HPF (0-13.0) 11/21/21 19:37 Urine Mucus Few /HPF 11/21/21 19:37 Coronavirus (PCR) Positive (Negative) A 11/23/21 Unknown Microbiology: Microbiology 11/22/21 05:49 Peripheral/Venous Blood Culture - Preliminary NO GROWTH AFTER 72 HOURS 11/22/21 06:06 Peripheral/Venous Blood Culture - Preliminary NO GROWTH AFTER 72 HOURS 11/21/21 19:37 Urine,Clean Catch Urine Culture - Final NO GROWTH AFTER 48 HOURS Fritz/IV: Voiding Method Condom Catheter Active Medications - Current Medications Current Medications: Generic Name Dose Route Start Last Admin Trade Name Freq PRN Reason Stop Dose Admin Acetaminophen 650 mg 11/22/21 05:48 Acetaminophen 325 Mg Tab PO Q4H PRN Pain MILD(1-3)/Fever >100.5/BRODY Albuterol 2.5 mg 11/25/21 12:00 Albuterol 2.5 Mg/3 Ml Nebu IH Q4HRT PRN Shortness Of Breath Dexamethasone 6 mg 11/26/21 12:00 Dexamethasone 4 Mg/Ml Vial IV 12/05/21 10:01 Q24HR NANDINI Dextrose 50 ml 11/22/21 05:48 Dextrose 50% In Water (25gm) 50 Ml Syringe IV Q30MIN PRN Hypoglycemia Protocol Heparin Sodium (Porcine) 5,000 unit 11/22/21 06:00 11/25/21 06:11 Heparin 5,000 Unit/1 Ml Vial SUB-Q 5,000 unit Q8HR NANDINI Administration Hydralazine HCl 10 mg 11/22/21 05:58 Hydralazine 20 Mg/1 Ml Inj IV Q6H PRN Blood Pressure Hydromorphone HCl 0.5 mg 11/22/21 05:48 11/23/21 06:02 Hydromorphone 1 Mg/1 Ml Inj IV 0.5 mg Q3H PRN Administration Pain , Severe (7-10) Sodium Chloride 1,000 mls @ 100 mls/hr 11/22/21 06:00 11/25/21 06:24 Nacl 0.45% 1000 Ml IV 100 mls/hr DIRECT NANDINI Administration Ceftriaxone Sodium 2 gm in 100 mls @ 200 mls/hr 11/22/21 06:00 11/25/21 06:09 Rocephin/Ns 2 Gm/100 Ml IV 11/26/21 06:29 200 mls/hr Q24H NANDINI Administration Protocol Insulin Human Lispro 0 unit 11/22/21 07:30 11/24/21 22:07 Insulin Lispro 100 Unit/Ml SUB-Q 3 unit ACHS NANDINI Administration Protocol Morphine Sulfate 2 mg 11/22/21 05:48 11/22/21 22:43 Morphine 2 Mg/1 Ml Inj IV 2 mg Q4H PRN Administration Pain, Moderate (4-6) Ondansetron HCl 4 mg 11/22/21 05:48 Ondansetron 4 Mg/2 Ml Inj IV Q8H PRN Nausea And Vomiting Sodium Chloride 10 ml 11/22/21 10:00 11/24/21 22:00 Sodium Chloride 0.9% 10 Ml Flush Syringe IV 10 ml BID NANDINI Administration Sodium Chloride 10 ml 11/22/21 05:48 Sodium Chloride 0.9% 10 Ml Flush Syringe IV PRN PRN LINE FLUSH Nutrition/Malnutrition Assess - Dietary Evaluation Nutrition/Malnutrition Findings: Nutrition Notes Start: 11/22/21 14:16 Freq: Status: Active Protocol: Document 11/22/21 14:16 CW (Rec: 11/22/21 14:29 CW [id number]) Nutrition Notes Need for Assessment generated from: Education Initial or Follow up Assessment Current Diagnosis Acute Kidney Injury,Diabetes, Hypertension Other Pertinent Diagnosis Metabolic encephalopathy, UTI, Covid 19 Current Diet Cardiac Consistent Carbohydrate Labs/Tests 11/21: K 3.2 BUN 23 Cr 1.4 BG 210 Pertinent Medications 1/2NS at 100 ml/hr Height 5 ft 11 in Weight 63.5 kg [place] Body Weight (kg) 78.18 BMI 19.5 Weight Status Underweight Subjective/Other Information MD consult for diet education. Diet education apporpriate at this time. Pt with AMS. No hgbA1c available. Pt under contact precautions for out of facitlity positive covid test . Unable to obtain nutrition hx at this time. Per RN, pt consuming 100% of meals today. Isak score of 18. Percent of energy/protein needs met: 100%/100% Burn Absent Trauma Absent GI Symptoms None Skin Integrity/Comment intact Current % PO Good (75-100%) Minimum of two criteria No physical signs of malnutrition #1 Nutrition Diagnosis Underweight Etiology advanced age As Evidenced by Signs and Symptoms low BMI of 19.5 for advanced age Is patient on ventilator? No Is Patient Ambulatory and/or Out of Bed Yes REE-([facility]-ambulatory/OOB) [ 1770.769 [id number]] Calculation Used for Recommendations [facility] Additional Notes protein needs:64 - 76g (1 - 1. 2g/kgBW) Fluid needs: 1 ml/kcal or per MD order Nutrition Intervention Change Diet Order: Continue current diet as ordered Add Supplement/Snack (indicate name/kcal Ensure Enlive BID /protein ) Provides kCal: 700 Provides Protein (gm) 40 Goal #1 Meet at least 80% of kcal needs Anticipated Discharge Needs: Cardiac Consistent Carbohydrate Diet Follow-Up By: 11/26/21 Additional Comments F/U for stable intakes and ONS toleration
[2021-11-25] MEDS ORDERED: methylPREDNISolone Sod Succinate 125 MG/2 ML INJ IV SCH (15:00)
[2021-11-25] MEDS ORDERED: FLEET ENEMA PR SCH (15:00)
--- NOTE | 2021-11-25 16:03 | Consultation ---
History of Present Illness - Reason for Consult Consult date: 11/25/21 - History of Present Illness 81-year-old man past medical history hypertension, diabetes presenting the hospital due to confusion. He had been discharged from [facility] 2 days prior to admission and confusion had not improved since then. Family was unaware why he was in the hospital previously. Afebrile since admission with a white count of 10.6. Covid positive. Normal renal function. Pending procalcitonin. Elevated laboratory markers. Blood cultures no growth so far. Requiring high flow nasal cannula 25 L/min. Imaging personally reviewed: Abdomen pelvis CT: Bilateral groundglass opacities large fecal impaction Review of systems: Deferred to reduce to the risk of transmission of COVID-19 Past History Past Medical History: diabetes, hypertension Past Surgical History: No surgical history Social history: no significant social history Family history: hypertension Medications and Allergies Allergies Allergy/AdvReac Type Severity Reaction Status Date / Time No Known Allergies Allergy Verified 11/22/21 05:55 Home Medications Medication Instructions Recorded Confirmed Last Taken Type Furosemide [Lasix TAB] 80 mg PO TID 11/24/21 11/24/21 Unknown History Furosemide [Lasix] 40 mg PO BID 11/24/21 11/24/21 Unknown History Gabapentin [Neurontin] 300 mg PO BID 11/24/21 11/24/21 Unknown History Insulin Glargine [Lantus VIAL] SQ 11/24/21 Unknown History Nepafenac [Ilevro] 1 drop OD DAILY 11/24/21 11/24/21 Unknown History Sacubitril/Valsartan [Entresto 1 tab PO BID 11/24/21 11/24/21 Unknown History 49-51 mg] Spironolactone [Aldactone] 25 mg PO QDAY 11/24/21 11/24/21 Unknown History Tamsulosin [Flomax] 0.4 mg PO QDAY 11/24/21 11/24/21 Unknown History carvediloL [Coreg] 6.25 mg PO BID 11/24/21 11/24/21 Unknown History Active Meds: Active Medications Acetaminophen (Acetaminophen 325 Mg Tab) 650 mg PO Q4H PRN PRN Reason: Pain MILD(1-3)/Fever >100.5/BORDY Albuterol (Albuterol 2.5 Mg/3 Ml Nebu) 2.5 mg IH Q4HRT PRN PRN Reason: Shortness Of Breath Dexamethasone (Dexamethasone 4 Mg/Ml Vial) 6 mg IV Q24HR ON LICENSE OF [facility] Stop: 12/05/21 10:01 Dextrose (Dextrose 50% In Water (25gm) 50 Ml Syringe) 50 ml IV Q30MIN PRN; Protocol PRN Reason: Hypoglycemia Docusate Sodium (Docusate Sodium 100 Mg Cap) 100 mg PO BID ON LICENSE OF [facility] Heparin Sodium (Porcine) (Heparin 5,000 Unit/1 Ml Vial) 5,000 unit SUB-Q Q8HR ON LICENSE OF [facility] Last Admin: 11/25/21 06:11 Dose: 5,000 unit Documented by: Hydralazine HCl (Hydralazine 20 Mg/1 Ml Inj) 10 mg IV Q6H PRN PRN Reason: Blood Pressure Hydromorphone HCl (Hydromorphone 1 Mg/1 Ml Inj) 0.5 mg IV Q3H PRN PRN Reason: Pain , Severe (7-10) Last Admin: 11/23/21 06:02 Dose: 0.5 mg Documented by: Sodium Chloride (Nacl 0.45% 1000 Ml) 1,000 mls @ 100 mls/hr IV DIRECT NANDINI Last Admin: 11/25/21 06:24 Dose: 100 mls/hr Documented by: Ceftriaxone Sodium (Rocephin/Ns 2 Gm/100 Ml) 2 gm in 100 mls @ 200 mls/hr IV Q24H ON LICENSE OF [facility]; Protocol Stop: 11/26/21 06:29 Last Admin: 11/25/21 06:09 Dose: 200 mls/hr Documented by: Insulin Human Lispro (Insulin Lispro 100 Unit/Ml) 0 unit SUB-Q ACHS ON LICENSE OF [facility]; Protocol Last Admin: 11/25/21 15:05 Dose: Not Given Documented by: Methylprednisolone Sodium Succinate (Methylprednisolone Sod Succinate 125 Mg/2 Ml Inj) 125 mg IV ONCE@1500 NANDINI Stop: 11/25/21 20:00 Morphine Sulfate (Morphine 2 Mg/1 Ml Inj) 2 mg IV Q4H PRN PRN Reason: Pain, Moderate (4-6) Last Admin: 11/22/21 22:43 Dose: 2 mg Documented by: Ondansetron HCl (Ondansetron 4 Mg/2 Ml Inj) 4 mg IV Q8H PRN PRN Reason: Nausea And Vomiting Sodium Biphosphate/Sodium Phosphate (Fleet Enema) 133 ml DE ONCE@1500 NANDINI Stop: 11/25/21 17:00 Sodium Chloride (Sodium Chloride 0.9% 10 Ml Flush Syringe) 10 ml IV BID NANDINI Last Admin: 11/24/21 22:00 Dose: 10 ml Documented by: Sodium Chloride (Sodium Chloride 0.9% 10 Ml Flush Syringe) 10 ml IV PRN PRN PRN Reason: LINE FLUSH Physical Examination - Physical Exam Narrative exam: Physical exam deferred to reduce risk of transmission of COVID-19. Please refer to primary team's note. - Constitutional Vitals: Vital Signs Temp Pulse Resp BP Pulse Ox 97.9 F 62 20 95/53 71 L 11/25/21 11:59 11/25/21 09:52 11/25/21 11:59 11/25/21 11:59 11/25/21 11:59 Temperature -Last 24 Hours Temperature 97.9 F Temperature 97.8 F Temperature 99.0 F Temperature 98.7 F Temperature 98.6 F Results - Labs CBC & Chem 7: 11/25/21 05:27 11/25/21 13:43 Labs: Abnormal lab results 11/23/21 11/24/21 11/24/21 Range/Units Unknown 18:09 20:52 RBC (3.65-5.03) M/mm3 Hgb (11.8-15.2) gm/dl Hct (35.5-45.6) % MCV (84-94) fl MCHC (32-34) % RDW (13.2-15.2) % Lymph % (Auto) (13.4-35.0) % Lymph # (Auto) (1.2-5.4) K/mm3 Seg Neutrophils % (40.0-70.0) % Seg Neutrophils # (1.8-7.7) K/mm3 Sodium (137-145) mmol/L Chloride (98-107) mmol/L Glucose (75-100) mg/dL POC Glucose 107 H 209 H (70-105) mg/dL Calcium (8.4-10.2) mg/dL AST (5-40) units/L C-Reactive Protein (0.00-1.30) mg/dL Total Protein (6.3-8.2) g/dL Albumin (3.9-5) g/dL Coronavirus (PCR) Positive A (Negative) 11/25/21 11/25/21 11/25/21 Range/Units 05:27 05:27 05:27 RBC 3.22 L (3.65-5.03) M/mm3 Hgb 9.6 L (11.8-15.2) gm/dl Hct 31.1 L (35.5-45.6) % MCV 97 H (84-94) fl MCHC 31 L (32-34) % RDW 15.6 H (13.2-15.2) % Lymph % (Auto) 10.5 L (13.4-35.0) % Lymph # (Auto) 1.1 L (1.2-5.4) K/mm3 Seg Neutrophils % 82.0 H (40.0-70.0) % Seg Neutrophils # 8.7 H (1.8-7.7) K/mm3 Sodium 146 H (137-145) mmol/L Chloride 108.2 H (98-107) mmol/L Glucose 145 H (75-100) mg/dL POC Glucose (70-105) mg/dL Calcium 7.8 L (8.4-10.2) mg/dL AST 67 H (5-40) units/L C-Reactive Protein 25.00 H (0.00-1.30) mg/dL Total Protein 5.1 L D (6.3-8.2) g/dL Albumin 2.5 L (3.9-5) g/dL Coronavirus (PCR) (Negative) 11/25/21 Range/Units 13:43 RBC (3.65-5.03) M/mm3 Hgb (11.8-15.2) gm/dl Hct (35.5-45.6) % MCV (84-94) fl MCHC (32-34) % RDW (13.2-15.2) % Lymph % (Auto) (13.4-35.0) % Lymph # (Auto) (1.2-5.4) K/mm3 Seg Neutrophils % (40.0-70.0) % Seg Neutrophils # (1.8-7.7) K/mm3 Sodium (137-145) mmol/L Chloride (98-107) mmol/L Glucose 191 H (75-100) mg/dL POC Glucose (70-105) mg/dL Calcium (8.4-10.2) mg/dL AST (5-40) units/L C-Reactive Protein (0.00-1.30) mg/dL Total Protein (6.3-8.2) g/dL Albumin (3.9-5) g/dL Coronavirus (PCR) (Negative) Assessment and Plan Cultures: Blood culture no growth so far Urine culture no growth so far A/P:81-year-old man past medical history hypertension, diabetes #Severe COVID-19 pneumonia: Patient presented with a week of symptoms, chest x- ray with diffuse bilateral infiltrates, admission O2 sats on room air. Inflammatory markers elevated #Acute hypoxemic respiratory failure: Likely secondary to COVID-19 infection. Currently on high flow nasal cannula 15 L/min #Diabetes: tight glycemic control for best outcomes. #Altered mental status #Fecal impaction Recommendations: -Steroids for 10 days -Remdesivir 200 mg IV q day x 1 followed by 100 mg IV q day x 4 days -If requiring high flow nasal cannula > 40 L/min would be candidate for Actemra -Obtain q48-72h inflammatory markers - ferritin, Ddimer, CRP, LDH -Continue empiric antibiotics, if procalcitonin <0.25 ng/mL stop antibiotics -Anticoagulation per hospital protocol -Proning as able Thank you for the consult, we will continue to follow. MD [facility] O: [phone] F: [phone]
[2021-11-25] MEDS: DOCUSATE SODIUM 100 MG CAP PO SCH (21:53)
[2021-11-26] MEDS ORDERED: REMDESIVIR 200 MG in SODIUM CHLORIDE 0.9% 250ML 250 ML IV ONE (01:15)
[2021-11-26] MEDS: SODIUM CHLORIDE 0.9% 50 ML IVPB IV SCH ×2 (02:58→21:54)
[2021-11-26] MEDS: HEPARIN 5,000 UNIT/1 ML VIAL SUB-Q SCH (06:20)
[2021-11-26] MEDS: cefTRIAXone/NS 2 GM/100 ML 2 GM/100 ML BAG IV SCH (06:20)
[2021-11-26] MEDS: SODIUM CHLORIDE 0.45% 1000 ML 1,000 ML IV SCH ×2 (06:29→22:47)
[2021-11-26 06:42] LABS: Albumin 2.3 g/dL (3.9-5); Calcium 7.8 mg/dL (8.4-10.2)
[2021-11-26] MEDS: INSULIN LISPRO 100 UNIT/ML SUB-Q SCH ×4 (08:41→22:45)
[2021-11-26] MEDS: DOCUSATE SODIUM 100 MG CAP PO SCH ×3 (09:49→21:53)
--- NOTE | 2021-11-26 11:32 | Progress Note ---
Assessment and Plan Assessment and plan: 81-year-old male with past medical history of hypertension and diabetes was brought to the emergency room in by family due to altered mental status/confusion. Patient discharged from [facility] 2 days ago and has been confused since then. The did not know why he was in the hospital to begin with. Allegedly, before he went to the hospital he was able to have a cogent conversation and was ambulatory. Now, apparently he cannot support his own weight. He is confused and cannot carry a cogent conversation. Labs revealed several mild abnormalities including ROSANA with mildly elevated creatinine and hypokalemia with potassium of 3.2. There is no leukocytosis or anemia. Urinalysis shows UTI. Initial CT scan of the head shows no acute intracranial abnormality November 24, 20192019 More alert and oriented Unable to give history Discussed with family and daughter They want long-term care 11/25: Patient seen and examined this morning noted on high flow oxygen unsure when she became toxic. Nevertheless pulmonary and ID consult patient started on steroid therapy. Will likely need remdesivir if renal function continues to show improvement We will also give Fleet enema just no documented bowel movement at this time. On CT imaging shows a large fecal material in the rectum. Called and updated Cade Pena, daughter, 11/26: Patient remains hypoxic and on high flow was weaned down to 90% at 35L discussed with nursing staff to inform respiratory therapist saturation was 96% we will continue to monitor. Will change to full dose anticoagulation at this time I am unable to get a CTA of the chest due to acute kidney injury. We will give gentle hydration as chest examination revealed clear auscultation sounds bilaterally. ID input noted continue steroids remdesivir initiated. Mild UTI noted, patient had been treated with ceftriaxone. Continue to monitor mental status for improvement CT of the head was negative. Discussed with nursing staff patient did have 2 large bowel movements yesterday. Altered mental status remains a mystery I will try to obtain records from [place] to further understand why the patient was in the hospital other place at the time # Acute metabolic encephalopathy Current Visit: Yes Status: Acute Plan to address problem: Improved Unable to give much history Discussed with daughter Daughters number on case management notes # acute hypoxic respiratory failure secondary to COVID-19 #COVID-19 pneumonia #diabetes Plan to address problem: Blood sugar coverage Long-acting insulin started at 10 units # High blood pressure Current Visit: Yes Status: Acute Plan to address problem: Hydralazine 10 mg IV every 6 hours as needed. We will monitor the blood pressure closely # ROSANA (acute kidney injury) secondary to vasomotor nephropathy Current Visit: Yes Status: Acute Plan to address problem: Improved # Hypokalemia Current Visit: Yes Status: Acute Plan to address problem: Supplemented # Urinary tract infection Current Visit: Yes Status: Acute Plan to address problem: Rocephin 2 g IV daily. We do the blood culture urine culture. # Constipation #Acute cystitis #DVT prophylaxis Current Visit: Yes Status: Acute Plan to address problem: Heparin 5000 units subcu every 8 hours for DVT prophylaxis. Pepcid 20 mg p.o. twice daily for GI prophylaxis. Patient is a full code # severe debility Physical therapy and Occupational Therapy tomorrow Discharge planning issues Daughter wants long-term care Discussed with daughter Cade Pena, daughter, . Per daughter patient lives with his spouse Tatyana Pena [phone] C, [phone] H. They are not legally ; she is the only child for her mother Daughter stated she will be the one making decision for her father, his spouse verbalized not able to care for him at home, she is considering long-term History Interval history: Patient seen and examined today remains on high flow oxygen some confusion persist out today trying to pull off oxygen and placed on restrain Hospitalist Physical - Physical exam Narrative exam: General appearance: Present: no acute distress, well-nourished - EENT Eyes: PERRL, EOM intact ENT: hearing intact, clear oral mucosa Ears: bilateral: normal - Neck Neck: supple, normal ROM - Respiratory Respiratory effort: normal Respiratory: bilateral: CTA - Breasts Breasts: normal - Cardiovascular Heart rate: 78 Rhythm: regular Heart Sounds: Present: S1 & S2. Absent: gallop, rub Extremities: pulses intact, No edema, normal color, Full ROM - Gastrointestinal General gastrointestinal: Present: soft, non-tender, non-distended, normal bowel sounds - Genitourinary Male genitourinary: normal - Integumentary Integumentary: clear, warm, dry - Musculoskeletal Musculoskeletal: generalized weakness - Neurologic Neurologic: moves all extremities, other (Alert but not oriented) placed on restraints - Psychiatric Psychiatric: other (Alert but not oriented) - Constitutional Vitals: Temp Pulse Resp BP Pulse Ox 98.2 F 55 L 18 107/60 100 11/26/21 05:13 11/26/21 05:13 11/26/21 05:13 11/26/21 05:13 11/26/21 05:13 General appearance: Present: no acute distress, well-nourished Results - Labs CBC & Chem 7: 11/25/21 05:27 11/26/21 08:21 Labs: Laboratory Last Values WBC 10.6 K/mm3 (4.5-11.0) 11/25/21 05:27 RBC 3.22 M/mm3 (3.65-5.03) L 11/25/21 05:27 Hgb 9.6 gm/dl (11.8-15.2) L 11/25/21 05:27 Hct 31.1 % (35.5-45.6) L 11/25/21 05:27 MCV 97 fl (84-94) H 11/25/21 05:27 MCH 30 pg (28-32) 11/25/21 05:27 MCHC 31 % (32-34) L 11/25/21 05:27 RDW 15.6 % (13.2-15.2) H 11/25/21 05:27 Plt Count 253 K/mm3 (140-440) 11/25/21 05:27 Lymph % (Auto) 10.5 % (13.4-35.0) L 11/25/21 05:27 [place] % (Auto) 6.8 % (0.0-7.3) 11/25/21 05:27 Eos % (Auto) 0.2 % (0.0-4.3) 11/25/21 05:27 Baso % (Auto) 0.5 % (0.0-1.8) 11/25/21 05:27 Lymph # (Auto) 1.1 K/mm3 (1.2-5.4) L 11/25/21 05:27 [place] # (Auto) 0.7 K/mm3 (0.0-0.8) 11/25/21 05:27 Eos # (Auto) 0.0 K/mm3 (0.0-0.4) 11/25/21 05:27 Baso # (Auto) 0.1 K/mm3 (0.0-0.1) 11/25/21 05:27 Add Manual Diff Complete 11/21/21 19:36 Total Counted 100 11/21/21 19:36 Seg Neutrophils % 82.0 % (40.0-70.0) H 11/25/21 05:27 Seg Neuts % (Manual) 79.0 % (40.0-70.0) H 11/21/21 19:36 Lymphocytes % (Manual) 10.0 % (13.4-35.0) L 11/21/21 19:36 Monocytes % (Manual) 8.0 % (0.0-7.3) H 11/21/21 19:36 Basophils % (Manual) 3.0 % (0.0-1.8) H 11/21/21 19:36 Nucleated RBC % Not Reportable 11/21/21 19:36 Seg Neutrophils # 8.7 K/mm3 (1.8-7.7) H 11/25/21 05:27 Seg Neutrophils # Man 5.3 K/mm3 (1.8-7.7) 11/21/21 19:36 Band Neutrophils # 0.0 K/mm3 11/21/21 19:36 Lymphocytes # (Manual) 0.7 K/mm3 (1.2-5.4) L 11/21/21 19:36 Abs React Lymphs (Man) 0.0 K/mm3 11/21/21 19:36 Monocytes # (Manual) 0.5 K/mm3 (0.0-0.8) 11/21/21 19:36 Eosinophils # (Manual) 0.0 K/mm3 (0.0-0.4) 11/21/21 19:36 Basophils # (Manual) 0.2 K/mm3 (0.0-0.1) H 11/21/21 19:36 Metamyelocytes # 0.0 K/mm3 11/21/21 19:36 Myelocytes # 0.0 K/mm3 11/21/21 19:36 Promyelocytes # 0.0 K/mm3 11/21/21 19:36 Blast Cells # 0.0 K/mm3 11/21/21 19:36 WBC Morphology Not Reportable 11/21/21 19:36 Hypersegmented Neuts Not Reportable 11/21/21 19:36 Hyposegmented Neuts Not Reportable 11/21/21 19:36 Hypogranular Neuts Not Reportable 11/21/21 19:36 Smudge Cells Not Reportable 11/21/21 19:36 Toxic Granulation Not Reportable 11/21/21 19:36 Toxic Vacuolation Not Reportable 11/21/21 19:36 Dohle Bodies Not Reportable 11/21/21 19:36 Pelger-Huet Anomaly Not Reportable 11/21/21 19:36 Luan Rods Not Reportable 11/21/21 19:36 Platelet Estimate Consistent w auto 11/21/21 19:36 Clumped Platelets Not Reportable 11/21/21 19:36 Plt Clumps, EDTA Not Reportable 11/21/21 19:36 Large Platelets Not Reportable 11/21/21 19:36 Giant Platelets Not Reportable 11/21/21 19:36 Platelet Satelliting Not Reportable 11/21/21 19:36 Plt Morphology Comment Not Reportable 11/21/21 19:36 RBC Morphology Normal 11/21/21 19:36 Dimorphic RBCs Not Reportable 11/21/21 19:36 Polychromasia Not Reportable 11/21/21 19:36 Hypochromasia Not Reportable 11/21/21 19:36 Poikilocytosis Not Reportable 11/21/21 19:36 Anisocytosis Not Reportable 11/21/21 19:36 Microcytosis Not Reportable 11/21/21 19:36 Macrocytosis Not Reportable 11/21/21 19:36 Spherocytes Not Reportable 11/21/21 19:36 Pappenheimer Bodies Not Reportable 11/21/21 19:36 Sickle Cells Not Reportable 11/21/21 19:36 Target Cells Not Reportable 11/21/21 19:36 Tear Drop Cells Not Reportable 11/21/21 19:36 Ovalocytes Not Reportable 11/21/21 19:36 Helmet Cells Not Reportable 11/21/21 19:36 [place] Bodies Not Reportable 11/21/21 19:36 [place] Rings Not Reportable 11/21/21 19:36 Star Cells Not Reportable 11/21/21 19:36 Bite Cells Not Reportable 11/21/21 19:36 Crenated Cell Not Reportable 11/21/21 19:36 Elliptocytes Not Reportable 11/21/21 19:36 Acanthocytes (Spur) Not Reportable 11/21/21 19:36 Rouleaux Not Reportable 11/21/21 19:36 Hemoglobin C Crystals Not Reportable 11/21/21 19:36 Schistocytes Not Reportable 11/21/21 19:36 Malaria parasites Not Reportable 11/21/21 19:36 Kalia Bodies Not Reportable 11/21/21 19:36 Hem Pathologist Commnt No 11/21/21 19:36 Sodium 144 mmol/L (137-145) 11/26/21 05:00 Potassium 3.8 mmol/L (3.6-5.0) 11/26/21 05:00 Chloride 103.3 mmol/L (98-107) 11/26/21 05:00 Carbon Dioxide 22 mmol/L (22-30) 11/26/21 05:00 Anion Gap 23 mmol/L 11/26/21 05:00 BUN 28 mg/dL (9-20) H 11/26/21 08:21 Creatinine 1.5 mg/dL (0.8-1.3) H 11/26/21 08:21 Estimated GFR 54 ml/min 11/26/21 08:21 BUN/Creatinine Ratio 16 % 11/26/21 05:00 Glucose 236 mg/dL (75-100) H 11/26/21 05:00 POC Glucose 198 mg/dL (70-105) H 11/26/21 11:09 Calcium 7.8 mg/dL (8.4-10.2) L 11/26/21 05:00 Total Bilirubin 0.40 mg/dL (0.1-1.2) 11/26/21 05:00 AST 51 units/L (5-40) H 11/26/21 05:00 ALT 37 units/L (7-56) 11/26/21 05:00 Alkaline Phosphatase 233 units/L (35-129) H 11/26/21 05:00 Ammonia 26.0 umol/L (25-60) 11/21/21 19:37 C-Reactive Protein 25.00 mg/dL (0.00-1.30) H 11/25/21 05:27 Total Protein 5.9 g/dL (6.3-8.2) L 11/26/21 05:00 Albumin 2.3 g/dL (3.9-5) L 11/26/21 05:00 Albumin/Globulin Ratio 0.6 % 11/26/21 05:00 TSH 4.800 mlU/mL (0.270-4.200) H 11/21/21 19:37 Urine Color Yellow (Yellow) 11/21/21 19:37 Urine Turbidity Slightly-cloudy (Clear) 11/21/21 19:37 Urine pH 5.0 (5.0-7.0) 11/21/21 19:37 Ur Specific [place] 1.010 (1.003-1.030) 11/21/21 19:37 Urine Protein 30 mg/dl mg/dL (Negative) 11/21/21 19:37 Urine Glucose (UA) 50 mg/dL (Negative) 11/21/21 19:37 Urine Ketones Tr mg/dL (Negative) 11/21/21 19:37 Urine Blood Lg (Negative) 11/21/21 19:37 Urine Nitrite Neg (Negative) 11/21/21 19:37 Urine Bilirubin Neg (Negative) 11/21/21 19:37 Urine Urobilinogen < 2.0 mg/dL (<2.0) 11/21/21 19:37 Ur Leukocyte Esterase Sm (Negative) 11/21/21 19:37 Urine WBC (Auto) 48.0 /HPF (0.0-6.0) H 11/21/21 19:37 Urine RBC (Auto) > 182.0 /HPF (0.0-6.0) 11/21/21 19:37 U Epithel Cells (Auto) 1.0 /HPF (0-13.0) 11/21/21 19:37 Urine Mucus Few /HPF 11/21/21 19:37 Coronavirus (PCR) Positive (Negative) A 11/23/21 Unknown Microbiology: Microbiology 11/22/21 05:49 Peripheral/Venous Blood Culture - Preliminary NO GROWTH AFTER 4 DAYS 11/22/21 06:06 Peripheral/Venous Blood Culture - Preliminary NO GROWTH AFTER 4 DAYS Fritz/IV: Voiding Method Condom Catheter Active Medications - Current Medications Current Medications: Generic Name Dose Route Start Last Admin Trade Name Freq PRN Reason Stop Dose Admin Acetaminophen 650 mg 11/22/21 05:48 Acetaminophen 325 Mg Tab PO Q4H PRN Pain MILD(1-3)/Fever >100.5/BRODY Albuterol 2.5 mg 11/25/21 12:00 Albuterol 2.5 Mg/3 Ml Nebu IH Q4HRT PRN Shortness Of Breath Dexamethasone 6 mg 11/26/21 12:00 Dexamethasone 4 Mg/Ml Vial IV 12/05/21 10:01 Q24HR NANDINI Dextrose 50 ml 11/22/21 05:48 Dextrose 50% In Water (25gm) 50 Ml Syringe IV Q30MIN PRN Hypoglycemia Protocol Docusate Sodium 100 mg 11/25/21 22:00 11/26/21 09:50 Docusate Sodium 100 Mg Cap PO Not Given BID [facility] Enoxaparin Sodium 70 mg 11/26/21 12:00 Enoxaparin 100 Mg/1 Ml Inj 1 mg/kg (70 mg) SUB-Q Q24H [facility] Protocol Hydralazine HCl 10 mg 11/22/21 05:58 Hydralazine 20 Mg/1 Ml Inj IV Q6H PRN Blood Pressure Hydromorphone HCl 0.5 mg 11/22/21 05:48 11/23/21 06:02 Hydromorphone 1 Mg/1 Ml Inj IV 0.5 mg Q3H PRN Administration Pain , Severe (7-10) Sodium Chloride 1,000 mls @ 100 mls/hr 11/22/21 06:00 11/26/21 06:29 Nacl 0.45% 1000 Ml IV 100 mls/hr DIRECT NANDINI Administration REMDESIVIR 100 mg/ Sodium 250 mls @ 500 mls/hr 11/26/21 21:00 Chloride IV 11/29/21 21:29 Q24HR@2100 [facility] Cefepime HCl 1 gm in 100 mls @ 200 mls/hr 11/26/21 12:00 Cefepime/Ns 1 Gm/100 Ml IV Q8H [facility] Protocol Insulin Human Lispro 0 unit 11/22/21 07:30 11/26/21 08:41 Insulin Lispro 100 Unit/Ml SUB-Q 3 unit ACHS [facility] Administration Protocol Morphine Sulfate 2 mg 11/22/21 05:48 11/22/21 22:43 Morphine 2 Mg/1 Ml Inj IV 2 mg Q4H PRN Administration Pain, Moderate (4-6) Ondansetron HCl 4 mg 11/22/21 05:48 Ondansetron 4 Mg/2 Ml Inj IV Q8H PRN Nausea And Vomiting Sodium Chloride 10 ml 11/22/21 10:00 11/26/21 09:50 Sodium Chloride 0.9% 10 Ml Flush Syringe IV 10 ml BID NANDINI Administration Sodium Chloride 10 ml 11/22/21 05:48 Sodium Chloride 0.9% 10 Ml Flush Syringe IV PRN PRN LINE FLUSH Sodium Chloride 50 ml 11/26/21 01:45 11/26/21 02:58 Sodium Chloride 0.9% 50 Ml Ivpb IV 11/29/21 21:01 50 ml Q24HR@2100 NANDINI Administration Nutrition/Malnutrition Assess - Dietary Evaluation Nutrition/Malnutrition Findings: Nutrition Notes Start: 11/22/21 14:16 Freq: Status: Active Protocol: Document 11/22/21 14:16 CW (Rec: 11/22/21 14:29 CW [id number]) Nutrition Notes Need for Assessment generated from: Education Initial or Follow up Assessment Current Diagnosis Acute Kidney Injury,Diabetes, Hypertension Other Pertinent Diagnosis Metabolic encephalopathy, UTI, Covid 19 Current Diet Cardiac Consistent Carbohydrate Labs/Tests 11/21: K 3.2 BUN 23 Cr 1.4 BG 210 Pertinent Medications 1/2NS at 100 ml/hr Height 5 ft 11 in Weight 63.5 kg [place] Body Weight (kg) 78.18 BMI 19.5 Weight Status Underweight Subjective/Other Information MD consult for diet education. Diet education apporpriate at this time. Pt with AMS. No hgbA1c available. Pt under contact precautions for out of facitlity positive covid test . Unable to obtain nutrition hx at this time. Per RN, pt consuming 100% of meals today. Isak score of 18. Percent of energy/protein needs met: 100%/100% Burn Absent Trauma Absent GI Symptoms None Skin Integrity/Comment intact Current % PO Good (75-100%) Minimum of two criteria No physical signs of malnutrition #1 Nutrition Diagnosis Underweight Etiology advanced age As Evidenced by Signs and Symptoms low BMI of 19.5 for advanced age Is patient on ventilator? No Is Patient Ambulatory and/or Out of Bed Yes REE-([place]-St. Jeor-ambulatory/OOB) [ 1770.769 [id number]] Calculation [facility] Additional Notes protein needs:64 - 76g (1 - 1. 2g/kgBW) Fluid needs: 1 ml/kcal or per MD order Nutrition Intervention Change Diet Order: Continue current diet as ordered Add Supplement/Snack (indicate name/kcal Ensure Enlive BID /protein ) Provides kCal: 700 Provides Protein (gm) 40 Goal #1 Meet at least 80% of kcal needs Anticipated Discharge Needs: Cardiac Consistent Carbohydrate Diet Follow-Up By: 11/26/21 Additional Comments F/U for stable intakes and ONS toleration
[2021-11-26] MEDS ORDERED: CEFEPIME/NS 1 GM/100 ML 1 GM/100 ML BAG IV SCH (12:00)
[2021-11-26] MEDS ORDERED: ENOXAPARIN 100 MG/1 ML INJ SUB-Q SCH (12:00)
[2021-11-26] MEDS: ENOXAPARIN 80 MG/0.8 ML INJ SUB-Q SCH ×2 (13:32→21:55)
[2021-11-26] MEDS: dexAMETHasone 4 MG/ML VIAL IV SCH (13:33)
--- NOTE | 2021-11-26 15:18 | Progress Note ---
Assessment and Plan Cultures: Blood culture no growth so far Urine culture no growth so far A/P:81-year-old man past medical history hypertension, diabetes #Severe COVID-19 pneumonia: Patient presented with a week of symptoms, chest x- ray with diffuse bilateral infiltrates, admission O2 sats on room air. Inflammatory markers elevated #Acute hypoxemic respiratory failure: Likely secondary to COVID-19 infection. Currently on high flow nasal cannula 15 L/min #Diabetes: tight glycemic control for best outcomes. #Altered mental status #Fecal impaction Recommendations: -Steroids for 10 days -Remdesivir 200 mg IV q day x 1 followed by 100 mg IV q day x 4 days -If requiring high flow nasal cannula > 40 L/min would be candidate for Actemra -Obtain q48-72h inflammatory markers - ferritin, Ddimer, CRP, LDH -Continue empiric antibiotics, if procalcitonin <0.25 ng/mL stop antibiotics. Otherwise complete 5 days. -Anticoagulation per hospital protocol -Proning as able Thank you for the consult, we will continue to follow. Rand Aguiar MD [facility] O: [phone] F: [phone] Subjective Date of service: 11/26/21 Principal diagnosis: Acute encephalopathy Interval history: Afebrile, normal white count. On high flow nasal cannula 25 L/min. Objective - Exam Narrative Exam: Physical exam deferred to reduce risk of transmission of COVID-19. Please refer to primary team's note. - Constitutional Vitals: Vital Signs Temp Pulse Resp BP Pulse Ox 98.2 F 55 L 18 107/60 100 11/26/21 05:13 11/26/21 05:13 11/26/21 05:13 11/26/21 05:13 11/26/21 05:13 Temperature -Last 24 Hours Temperature 98.2 F Temperature 97.7 F Temperature 99.6 F - Labs CBC & Chem 7: 11/25/21 05:27 11/26/21 08:21 Labs: Abnormal lab results 11/25/21 11/26/21 11/26/21 Range/Units 18:16 05:00 08:01 BUN 28 H (9-20) mg/dL Creatinine 1.7 H (0.8-1.3) mg/dL Glucose 236 H (75-100) mg/dL POC Glucose 149 H 206 H (70-105) mg/dL Calcium 7.8 L (8.4-10.2) mg/dL AST 51 H (5-40) units/L Alkaline Phosphatase 233 H (35-129) units/L Total Protein 5.9 L (6.3-8.2) g/dL Albumin 2.3 L (3.9-5) g/dL 11/26/21 11/26/21 Range/Units 08:21 11:09 BUN 28 H (9-20) mg/dL Creatinine 1.5 H (0.8-1.3) mg/dL Glucose (75-100) mg/dL POC Glucose 198 H (70-105) mg/dL Calcium (8.4-10.2) mg/dL AST (5-40) units/L Alkaline Phosphatase (35-129) units/L Total Protein (6.3-8.2) g/dL Albumin (3.9-5) g/dL
--- NOTE | 2021-11-26 15:43 | Consultation ---
History of Present Illness Consult date: 11/26/21 Requesting physician: NATE FARFAN Reason for consult: hypoxemia History of present illness: 81 y/o male, COVID positive admitted for generalized weakness and altered mental status. Patient was admitted to [facility] from 11/17-11/19 for similar complaints minus the ams and was found to have a Kleisiella UTI. Per the DC summary, patient was positive prior to leaving [facility] after finding out that his tested positive he requested to be tested. They also state that he was going to leave [place] but they ended up discharging him. He presented to the ED here 2 days later altered. Not sure if he finished the abx therapy he was suppose to get or not. They initially began treating him for UTI but did not know his covid status as patient could not provide history. On 11/24 patient went from 2 liters NC to 30 and 100% on HFNC. He also had been getting continuous fluids since admission. after reviewing the chart from [place], patient has systolic heart failure with an EF of 35%. Pulmonary consulted secondary to worsening hypoxemia and COVID. Past History Past Medical History: diabetes, hypertension Past Surgical History: No surgical history Social history: no significant social history Family history: hypertension Medications and Allergies Allergies Allergy/AdvReac Type Severity Reaction Status Date / Time No Known Allergies Allergy Verified 11/22/21 05:55 Home Medications Medication Instructions Recorded Confirmed Last Taken Type Furosemide [Lasix TAB] 80 mg PO TID 11/24/21 11/24/21 Unknown History Furosemide [Lasix] 40 mg PO BID 11/24/21 11/24/21 Unknown History Gabapentin [Neurontin] 300 mg PO BID 11/24/21 11/24/21 Unknown History Insulin Glargine [Lantus VIAL] SQ 11/24/21 Unknown History Nepafenac [Ilevro] 1 drop OD DAILY 11/24/21 11/24/21 Unknown History Sacubitril/Valsartan [Entresto 1 tab PO BID 11/24/21 11/24/21 Unknown History 49-51 mg] Spironolactone [Aldactone] 25 mg PO QDAY 11/24/21 11/24/21 Unknown History Tamsulosin [Flomax] 0.4 mg PO QDAY 11/24/21 11/24/21 Unknown History carvediloL [Coreg] 6.25 mg PO BID 11/24/21 11/24/21 Unknown History Active Meds: Active Medications Acetaminophen (Acetaminophen 325 Mg Tab) 650 mg PO Q4H PRN PRN Reason: Pain MILD(1-3)/Fever >100.5/BRODY Albuterol (Albuterol 2.5 Mg/3 Ml Nebu) 2.5 mg IH Q4HRT PRN PRN Reason: Shortness Of Breath Dexamethasone (Dexamethasone 4 Mg/Ml Vial) 6 mg IV Q24HR [facility] Stop: 12/05/21 10:01 Last Admin: 11/26/21 13:33 Dose: 6 mg Dextrose (Dextrose 50% In Water (25gm) 50 Ml Syringe) 50 ml IV Q30MIN PRN; Protocol PRN Reason: Hypoglycemia Docusate Sodium (Docusate Sodium 100 Mg Cap) 100 mg PO BID [facility] Last Admin: 11/26/21 09:50 Dose: Not Given Enoxaparin Sodium (Enoxaparin 80 Mg/0.8 Ml Inj) 70 mg SUB-Q Q12HR [facility] Last Admin: 11/26/21 13:32 Dose: 70 mg Hydralazine HCl (Hydralazine 20 Mg/1 Ml Inj) 10 mg IV Q6H PRN PRN Reason: Blood Pressure Hydromorphone HCl (Hydromorphone 1 Mg/1 Ml Inj) 0.5 mg IV Q3H PRN PRN Reason: Pain , Severe (7-10) Last Admin: 11/23/21 06:02 Dose: 0.5 mg Sodium Chloride (Nacl 0.45% 1000 Ml) 1,000 mls @ 100 mls/hr IV DIRECT [facility] Last Admin: 11/26/21 06:29 Dose: 100 mls/hr REMDESIVIR 100 mg/ Sodium (Chloride) 250 mls @ 500 mls/hr IV Q24HR@2100 [facility] Stop: 11/29/21 21:29 Insulin Human Lispro (Insulin Lispro 100 Unit/Ml) 0 unit SUB-Q ACHS [facility]; Protocol Last Admin: 11/26/21 13:33 Dose: 2 unit Morphine Sulfate (Morphine 2 Mg/1 Ml Inj) 2 mg IV Q4H PRN PRN Reason: Pain, Moderate (4-6) Last Admin: 11/22/21 22:43 Dose: 2 mg Ondansetron HCl (Ondansetron 4 Mg/2 Ml Inj) 4 mg IV Q8H PRN PRN Reason: Nausea And Vomiting Sodium Chloride (Sodium Chloride 0.9% 10 Ml Flush Syringe) 10 ml IV BID [facility] Last Admin: 11/26/21 09:50 Dose: 10 ml Sodium Chloride (Sodium Chloride 0.9% 10 Ml Flush Syringe) 10 ml IV PRN PRN PRN Reason: LINE FLUSH Sodium Chloride (Sodium Chloride 0.9% 50 Ml Ivpb) 50 ml IV Q24HR@2100 [facility] Stop: 11/29/21 21:01 Last Admin: 11/26/21 02:58 Dose: 50 ml Physical Examination Vital signs: Vital Signs Temp Pulse Resp BP Pulse Ox 98.5 F 61 18 124/73 94 11/21/21 19:28 11/21/21 19:28 11/21/21 19:28 11/21/21 19:28 11/21/21 19:28 Results - Laboratory Findings CBC and BMP: 11/25/21 05:27 11/26/21 08:21 Abnormal lab findings: Abnormal Labs 11/21/21 11/21/21 11/21/21 19:36 19:36 19:37 RBC 3.56 L Hgb 10.8 L Hct 34.1 L MCV 96 H MCHC RDW 15.3 H Lymph % (Auto) [facility] % (Auto) Lymph # (Auto) Seg Neutrophils % Seg Neuts % (Manual) 79.0 H Lymphocytes % (Manual) 10.0 L Monocytes % (Manual) 8.0 H Basophils % (Manual) 3.0 H Seg Neutrophils # Lymphocytes # (Manual) 0.7 L Basophils # (Manual) 0.2 H Sodium Potassium 3.2 L Chloride BUN 23 H Creatinine 1.4 H Glucose 210 H POC Glucose Calcium 8.2 L AST 45 H Alkaline Phosphatase 133 H C-Reactive Protein Total Protein Albumin 3.0 L TSH Urine WBC (Auto) 48.0 H Coronavirus (PCR) 11/21/21 11/22/21 11/22/21 19:37 11:52 15:52 RBC Hgb Hct MCV MCHC RDW Lymph % (Auto) [facility] % (Auto) Lymph # (Auto) Seg Neutrophils % Seg Neuts % (Manual) Lymphocytes % (Manual) Monocytes % (Manual) Basophils % (Manual) Seg Neutrophils # Lymphocytes # (Manual) Basophils # (Manual) Sodium Potassium Chloride BUN Creatinine Glucose POC Glucose 144 H 194 H Calcium AST Alkaline Phosphatase C-Reactive Protein Total Protein Albumin TSH 4.800 H Urine WBC (Auto) Coronavirus (PCR) 11/22/21 11/23/21 11/23/21 20:42 04:48 04:48 RBC 3.22 L Hgb 9.8 L Hct 30.9 L MCV 96 H MCHC RDW Lymph % (Auto) [facility] % (Auto) 9.4 H Lymph # (Auto) 1.1 L Seg Neutrophils % 76.5 H Seg Neuts % (Manual) Lymphocytes % (Manual) Monocytes % (Manual) Basophils % (Manual) Seg Neutrophils # Lymphocytes # (Manual) Basophils # (Manual) Sodium Potassium 3.1 L Chloride BUN 24 H Creatinine Glucose 112 H POC Glucose 155 H Calcium 8.1 L AST Alkaline Phosphatase C-Reactive Protein Total Protein Albumin TSH Urine WBC (Auto) Coronavirus (PCR) 11/23/21 11/23/21 11/23/21 08:03 12:24 16:37 RBC Hgb Hct MCV MCHC RDW Lymph % (Auto) [facility] % (Auto) Lymph # (Auto) Seg Neutrophils % Seg Neuts % (Manual) Lymphocytes % (Manual) Monocytes % (Manual) Basophils % (Manual) Seg Neutrophils # Lymphocytes # (Manual) Basophils # (Manual) Sodium Potassium Chloride BUN Creatinine Glucose POC Glucose 111 H 106 H 112 H Calcium AST Alkaline Phosphatase C-Reactive Protein Total Protein Albumin TSH Urine WBC (Auto) Coronavirus (PCR) 11/23/21 11/23/21 11/24/21 20:45 Unknown 11:47 RBC Hgb Hct MCV MCHC RDW Lymph % (Auto) [facility] % (Auto) Lymph # (Auto) Seg Neutrophils % Seg Neuts % (Manual) Lymphocytes % (Manual) Monocytes % (Manual) Basophils % (Manual) Seg Neutrophils # Lymphocytes # (Manual) Basophils # (Manual) Sodium Potassium Chloride BUN Creatinine Glucose POC Glucose 179 H 142 H Calcium AST Alkaline Phosphatase C-Reactive Protein Total Protein Albumin TSH Urine WBC (Auto) Coronavirus (PCR) Positive A 11/24/21 11/24/21 11/25/21 18:09 20:52 05:27 RBC 3.22 L Hgb 9.6 L Hct 31.1 L MCV 97 H MCHC 31 L RDW 15.6 H Lymph % (Auto) 10.[address] [facility] % (Auto) Lymph # (Auto) 1.1 L Seg Neutrophils % 82.0 H Seg Neuts % (Manual) Lymphocytes % (Manual) Monocytes % (Manual) Basophils % (Manual) Seg Neutrophils # 8.7 H Lymphocytes # (Manual) Basophils # (Manual) Sodium Potassium Chloride BUN Creatinine Glucose POC Glucose 107 H 209 H Calcium AST Alkaline Phosphatase C-Reactive Protein Total Protein Albumin TSH Urine WBC (Auto) Coronavirus (PCR) 11/25/21 11/25/21 11/25/21 05:27 05:27 13:43 RBC Hgb Hct MCV MCHC RDW Lymph % (Auto) [facility] % (Auto) Lymph # (Auto) Seg Neutrophils % Seg Neuts % (Manual) Lymphocytes % (Manual) Monocytes % (Manual) Basophils % (Manual) Seg Neutrophils # Lymphocytes # (Manual) Basophils # (Manual) Sodium 146 H Potassium Chloride 108.2 H BUN Creatinine Glucose 145 H 191 H POC Glucose Calcium 7.8 L AST 67 H Alkaline Phosphatase C-Reactive Protein 25.00 H Total Protein 5.1 L D Albumin 2.5 L TSH Urine WBC (Auto) Coronavirus (PCR) 11/25/21 11/26/21 11/26/21 18:16 05:00 08:01 RBC Hgb Hct MCV MCHC RDW Lymph % (Auto) [facility] % (Auto) Lymph # (Auto) Seg Neutrophils % Seg Neuts % (Manual) Lymphocytes % (Manual) Monocytes % (Manual) Basophils % (Manual) Seg Neutrophils # Lymphocytes # (Manual) Basophils # (Manual) Sodium Potassium Chloride BUN 28 H Creatinine 1.7 H Glucose 236 H POC Glucose 149 H 206 H Calcium 7.8 L AST 51 H Alkaline Phosphatase 233 H C-Reactive Protein Total Protein 5.9 L Albumin 2.3 L TSH Urine WBC (Auto) Coronavirus (PCR) 11/26/21 11/26/21 08:21 11:09 RBC Hgb Hct MCV MCHC RDW Lymph % (Auto) [facility] % (Auto) Lymph # (Auto) Seg Neutrophils % Seg Neuts % (Manual) Lymphocytes % (Manual) Monocytes % (Manual) Basophils % (Manual) Seg Neutrophils # Lymphocytes # (Manual) Basophils # (Manual) Sodium Potassium Chloride BUN 28 H Creatinine 1.5 H Glucose POC Glucose 198 H Calcium AST Alkaline Phosphatase C-Reactive Protein Total Protein Albumin TSH Urine WBC (Auto) Coronavirus (PCR) Assessment and Plan 81 y/o male with acute respiratory failure likely secondary to COVID but also could be from volume overload, with renal failure and Kleibsiella UTI. 1. ID-Was on rocephin in [place], then was discharged on levaquin for 2 days. Kleb is resistant to ampicillin bactrim and tetracycline. Was sensitive to everything else. ID following. not currently on abx. Has been afebile no white count 2. Pulm- acute respiratory failure with worsening while in house. Could be all related to COVID but given his history of systolic CHF, could be volume related as well as it was so acute after a couple days of IV hydration. If renal function and bp would allow, would attempt some yennifer IV diuresis. Prone given COVID and agree with steroids and Remdesivir. 3. Guarded prognosis, will continue to follow
[2021-11-26] MEDS: REMDESIVIR 100 MG in SODIUM CHLORIDE 0.9% 250ML 250 ML IV SCH (21:52)
[2021-11-27 06:15] LABS: Hematocrit 29.3 % (35.5-45.6); Hemoglobin 9.1 gm/dl (11.8-15.2); Mean Corpuscular HGB Conc 31 % (32-34); Mean Corpuscular Volume 94 fl (84-94); Platelet Count 327 K/mm3 (140-440); Red Blood Count 3.12 M/mm3 (3.65-5.03); Red Cell Distribution Width 15.1 % (13.2-15.2)
[2021-11-27 06:38] LABS: Albumin 2.5 g/dL (3.9-5); Calcium 8.1 mg/dL (8.4-10.2)
--- NOTE | 2021-11-27 07:45 | Progress Note ---
Assessment and Plan Assessment and plan: 81-year-old male with past medical history of hypertension and diabetes was brought to the emergency room in by family due to altered mental status/confusion. Patient discharged from [facility] 2 days ago and has been confused since then. The did not know why he was in the hospital to begin with. Allegedly, before he went to the hospital he was able to have a cogent conversation and was ambulatory. Now, apparently he cannot support his own weight. He is confused and cannot carry a cogent conversation. Labs revealed several mild abnormalities including ROSANA with mildly elevated creatinine and hypokalemia with potassium of 3.2. There is no leukocytosis or anemia. Urinalysis shows UTI. Initial CT scan of the head shows no acute intracranial abnormality November 24, 20192019 More alert and oriented Unable to give history Discussed with family and daughter They want long-term care 11/25: Patient seen and examined this morning noted on high flow oxygen unsure when she became toxic. Nevertheless pulmonary and ID consult patient started on steroid therapy. Will likely need remdesivir if renal function continues to show improvement We will also give Fleet enema just no documented bowel movement at this time. On CT imaging shows a large fecal material in the rectum. Called and updated Cade Pena, daughter, 11/26: Patient remains hypoxic and on high flow was weaned down to 90% at 35L discussed with nursing staff to inform respiratory therapist saturation was 96% we will continue to monitor. Will change to full dose anticoagulation at this time I am unable to get a CTA of the chest due to acute kidney injury. We will give gentle hydration as chest examination revealed clear auscultation sounds bilaterally. ID input noted continue steroids remdesivir initiated. Mild UTI noted, patient had been treated with ceftriaxone. Continue to monitor mental status for improvement CT of the head was negative. Discussed with nursing staff patient did have 2 large bowel movements yesterday. Altered mental status remains a mystery I will try to obtain records from [facility] to further understand why the patient was in the hospital other place at the time 11/27: Patient seen and examined, improving some, continue current management with steroids and recently initiated remdesivir. Last [place] consulted to assist us with renal function wean oxygen as tolerated. still some confusion, Called the daughter to get Clarification on the discussion with the nursing about ventilator. it was a very contentious discussion as she did not want to address the issue "stating I do not want to put that on the universe" someone else got on the phone and had discussion with the daughter including asking why he left the other hospital finally the all agreed that God forbid "something happen- you have to revive him" # Acute metabolic encephalopathy Current Visit: Yes Status: Acute Plan to address problem: Improved Unable to give much history Discussed with daughter Daughters number on case management notes # acute hypoxic respiratory failure secondary to COVID-19 #COVID-19 pneumonia #diabetes Plan to address problem: Blood sugar coverage Long-acting insulin started at 10 units # High blood pressure Current Visit: Yes Status: Acute Plan to address problem: Hydralazine 10 mg IV every 6 hours as needed. We will monitor the blood pressure closely # ROSANA (acute kidney injury) secondary to vasomotor nephropathy Current Visit: Yes Status: Acute Plan to address problem: Improved # Hypokalemia Current Visit: Yes Status: Acute Plan to address problem: Supplemented # Urinary tract infection Current Visit: Yes Status: Acute Plan to address problem: Rocephin 2 g IV daily. We do the blood culture urine culture. # Constipation #Acute cystitis #DVT prophylaxis Current Visit: Yes Status: Acute Plan to address problem: Heparin 5000 units subcu every 8 hours for DVT prophylaxis. Pepcid 20 mg p.o. twice daily for GI prophylaxis. Patient is a full code # severe debility Physical therapy and Occupational Therapy tomorrow Discharge planning issues Daughter wants long-term care Discussed with daughter Cade Pena, daughter, . Per daughter patient lives with his spouse Tatyana Pena [phone] C, H. They are not legally ; she is the only child for her mother Daughter stated she will be the one making decision for her father, his spouse verbalized not able to care for him at home, she is considering senior living History Interval history: Patient seen and examined today remains on high flow oxygen some confusion persist out today trying to pull off oxygen and placed on restraint Hospitalist Physical - Physical exam Narrative exam: General appearance: Present: no acute distress, well-nourished - EENT Eyes: PERRL, EOM intact ENT: hearing intact, clear oral mucosa Ears: bilateral: normal - Neck Neck: supple, normal ROM - Respiratory Respiratory effort: normal Respiratory: bilateral: CTA - Breasts Breasts: normal - Cardiovascular Heart rate: 78 Rhythm: regular Heart Sounds: Present: S1 & S2. Absent: gallop, rub Extremities: pulses intact, No edema, normal color, Full ROM - Gastrointestinal General gastrointestinal: Present: soft, non-tender, non-distended, normal bowel sounds - Genitourinary Male genitourinary: normal - Integumentary Integumentary: clear, warm, dry - Musculoskeletal Musculoskeletal: generalized weakness - Neurologic Neurologic: moves all extremities, other (Alert but not oriented) placed on restraints - Psychiatric Psychiatric: other (Alert but not oriented) - Constitutional Vitals: Temp Pulse Resp BP Pulse Ox 97.9 F 45 L 16 126/77 100 11/26/21 22:20 11/26/21 22:20 11/26/21 22:20 11/26/21 22:20 11/27/21 02:00 General appearance: Present: no acute distress, well-nourished Results - Labs CBC & Chem 7: 11/27/21 05:17 11/27/21 05:17 Labs: Laboratory Last Values WBC 14.0 K/mm3 (4.5-11.0) H 11/27/21 05:17 RBC 3.12 M/mm3 (3.65-5.03) L 11/27/21 05:17 Hgb 9.1 gm/dl (11.8-15.2) L 11/27/21 05:17 Hct 29.3 % (35.5-45.6) L 11/27/21 05:17 MCV 94 fl (84-94) 11/27/21 05:17 MCH 29 pg (28-32) 11/27/21 05:17 MCHC 31 % (32-34) L 11/27/21 05:17 RDW 15.1 % (13.2-15.2) 11/27/21 05:17 Plt Count 327 K/mm3 (140-440) 11/27/21 05:17 Lymph % (Auto) 10.5 % (13.4-35.0) L 11/25/21 05:27 [place] % (Auto) 6.8 % (0.0-7.3) 11/25/21 05:27 Eos % (Auto) 0.2 % (0.0-4.3) 11/25/21 05:27 Baso % (Auto) 0.5 % (0.0-1.8) 11/25/21 05:27 Lymph # (Auto) 1.1 K/mm3 (1.2-5.4) L 11/25/21 05:27 [place] # (Auto) 0.7 K/mm3 (0.0-0.8) 11/25/21 05:27 Eos # (Auto) 0.0 K/mm3 (0.0-0.4) 11/25/21 05:27 Baso # (Auto) 0.1 K/mm3 (0.0-0.1) 11/25/21 05:27 Add Manual Diff Complete 11/21/21 19:36 Total Counted 100 11/21/21 19:36 Seg Neutrophils % 82.0 % (40.0-70.0) H 11/25/21 05:27 Seg Neuts % (Manual) 79.0 % (40.0-70.0) H 11/21/21 19:36 Lymphocytes % (Manual) 10.0 % (13.4-35.0) L 11/21/21 19:36 Monocytes % (Manual) 8.0 % (0.0-7.3) H 11/21/21 19:36 Basophils % (Manual) 3.0 % (0.0-1.8) H 11/21/21 19:36 Nucleated RBC % Not Reportable 11/21/21 19:36 Seg Neutrophils # 8.7 K/mm3 (1.8-7.7) H 11/25/21 05:27 Seg Neutrophils # Man 5.3 K/mm3 (1.8-7.7) 11/21/21 19:36 Band Neutrophils # 0.0 K/mm3 11/21/21 19:36 Lymphocytes # (Manual) 0.7 K/mm3 (1.2-5.4) L 11/21/21 19:36 Abs React Lymphs (Man) 0.0 K/mm3 11/21/21 19:36 Monocytes # (Manual) 0.5 K/mm3 (0.0-0.8) 11/21/21 19:36 Eosinophils # (Manual) 0.0 K/mm3 (0.0-0.4) 11/21/21 19:36 Basophils # (Manual) 0.2 K/mm3 (0.0-0.1) H 11/21/21 19:36 Metamyelocytes # 0.0 K/mm3 11/21/21 19:36 Myelocytes # 0.0 K/mm3 11/21/21 19:36 Promyelocytes # 0.0 K/mm3 11/21/21 19:36 Blast Cells # 0.0 K/mm3 11/21/21 19:36 WBC Morphology Not Reportable 11/21/21 19:36 Hypersegmented Neuts Not Reportable 11/21/21 19:36 Hyposegmented Neuts Not Reportable 11/21/21 19:36 Hypogranular Neuts Not Reportable 11/21/21 19:36 Smudge Cells Not Reportable 11/21/21 19:36 Toxic Granulation Not Reportable 11/21/21 19:36 Toxic Vacuolation Not Reportable 11/21/21 19:36 Dohle Bodies Not Reportable 11/21/21 19:36 Pelger-Huet Anomaly Not Reportable 11/21/21 19:36 Luan Rods Not Reportable 11/21/21 19:36 Platelet Estimate Consistent w auto 11/21/21 19:36 Clumped Platelets Not Reportable 11/21/21 19:36 Plt Clumps, EDTA Not Reportable 11/21/21 19:36 Large Platelets Not Reportable 11/21/21 19:36 Giant Platelets Not Reportable 11/21/21 19:36 Platelet Satelliting Not Reportable 11/21/21 19:36 Plt Morphology Comment Not Reportable 11/21/21 19:36 RBC Morphology Normal 11/21/21 19:36 Dimorphic RBCs Not Reportable 11/21/21 19:36 Polychromasia Not Reportable 11/21/21 19:36 Hypochromasia Not Reportable 11/21/21 19:36 Poikilocytosis Not Reportable 11/21/21 19:36 Anisocytosis Not Reportable 11/21/21 19:36 Microcytosis Not Reportable 11/21/21 19:36 Macrocytosis Not Reportable 11/21/21 19:36 Spherocytes Not Reportable 11/21/21 19:36 Pappenheimer Bodies Not Reportable 11/21/21 19:36 Sickle Cells Not Reportable 11/21/21 19:36 Target Cells Not Reportable 11/21/21 19:36 Tear Drop Cells Not Reportable 11/21/21 19:36 Ovalocytes Not Reportable 11/21/21 19:36 Helmet Cells Not Reportable 11/21/21 19:36 [place] Bodies Not Reportable 11/21/21 19:36 [place] Rings Not Reportable 11/21/21 19:36 [place] Cells Not Reportable 11/21/21 19:36 Bite Cells Not Reportable 11/21/21 19:36 Crenated Cell Not Reportable 11/21/21 19:36 Elliptocytes Not Reportable 11/21/21 19:36 Acanthocytes (Spur) Not Reportable 11/21/21 19:36 Rouleaux Not Reportable 11/21/21 19:36 Hemoglobin C Crystals Not Reportable 11/21/21 19:36 Schistocytes Not Reportable 11/21/21 19:36 Malaria parasites Not Reportable 11/21/21 19:36 Kal[place] Bodies Not Reportable 11/21/21 19:36 Hem Pathologist Commnt No 11/21/21 19:36 D-Dimer 1279.46 ng/mlDDU (0-234) H 11/26/21 16:44 Sodium 147 mmol/L (137-145) H 11/27/21 05:17 Potassium 3.6 mmol/L (3.6-5.0) 11/27/21 05:17 Chloride 107.3 mmol/L (98-107) H 11/27/21 05:17 Carbon Dioxide 23 mmol/L (22-30) 11/27/21 05:17 Anion Gap 20 mmol/L 11/27/21 05:17 BUN 37 mg/dL (9-20) H 11/27/21 05:17 Creatinine 1.6 mg/dL (0.8-1.3) H 11/27/21 05:17 Estimated GFR 50 ml/min 11/27/21 05:17 BUN/Creatinine Ratio 23 % 11/27/21 05:17 Glucose 197 mg/dL (75-100) H 11/27/21 05:17 POC Glucose 173 mg/dL (70-105) H 11/26/21 22:20 Calcium 8.1 mg/dL (8.4-10.2) L 11/27/21 05:17 Total Bilirubin 0.30 mg/dL (0.1-1.2) 11/27/21 05:17 AST 32 units/L (5-40) 11/27/21 05:17 ALT 31 units/L (7-56) 11/27/21 05:17 Alkaline Phosphatase 211 units/L (35-129) H 11/27/21 05:17 Ammonia 26.0 umol/L (25-60) 11/21/21 19:37 C-Reactive Protein 25.00 mg/dL (0.00-1.30) H 11/25/21 05:27 Total Protein 5.6 g/dL (6.3-8.2) L 11/27/21 05:17 Albumin 2.5 g/dL (3.9-5) L 11/27/21 05:17 Albumin/Globulin Ratio 0.8 % 11/27/21 05:17 TSH 4.800 mlU/mL (0.270-4.200) H 11/21/21 19:37 Urine Color Yellow (Yellow) 11/21/21 19:37 Urine Turbidity Slightly-cloudy (Clear) 11/21/21 19:37 Urine pH 5.0 (5.0-7.0) 11/21/21 19:37 Ur Specific [place] 1.010 (1.003-1.030) 11/21/21 19:37 Urine Protein 30 mg/dl mg/dL (Negative) 11/21/21 19:37 Urine Glucose (UA) 50 mg/dL (Negative) 11/21/21 19:37 Urine Ketones Tr mg/dL (Negative) 11/21/21 19:37 Urine Blood Lg (Negative) 11/21/21 19:37 Urine Nitrite Neg (Negative) 11/21/21 19:37 Urine Bilirubin Neg (Negative) 11/21/21 19:37 Urine Urobilinogen < 2.0 mg/dL (<2.0) 11/21/21 19:37 Ur Leukocyte Esterase Sm (Negative) 11/21/21 19:37 Urine WBC (Auto) 48.0 /HPF (0.0-6.0) H 11/21/21 19:37 Urine RBC (Auto) > 182.0 /HPF (0.0-6.0) 11/21/21 19:37 U Epithel Cells (Auto) 1.0 /HPF (0-13.0) 11/21/21 19:37 Urine Mucus Few /HPF 11/21/21 19:37 Coronavirus (PCR) Positive (Negative) A 11/23/21 Unknown Microbiology: Microbiology 11/22/21 05:49 Peripheral/Venous Blood Culture - Preliminary NO GROWTH AFTER 4 DAYS 11/22/21 06:06 Peripheral/Venous Blood Culture - Preliminary NO GROWTH AFTER 4 DAYS Fritz/IV: Voiding Method Condom Catheter Active Medications - Current Medications Current Medications: Generic Name Dose Route Start Last Admin Trade Name Freq PRN Reason Stop Dose Admin Acetaminophen 650 mg 11/22/21 05:48 Acetaminophen 325 Mg Tab PO Q4H PRN Pain MILD(1-3)/Fever >100.5/BRODY Albuterol 2.5 mg 11/25/21 12:00 Albuterol 2.5 Mg/3 Ml Nebu IH Q4HRT PRN Shortness Of Breath Dexamethasone 6 mg 11/26/21 12:00 11/26/21 13:33 Dexamethasone 4 Mg/Ml Vial IV 12/05/21 10:01 6 mg Q24HR NANDINI Administration Dextrose 50 ml 11/22/21 05:48 Dextrose 50% In Water (25gm) 50 Ml Syringe IV Q30MIN PRN Hypoglycemia Protocol Docusate Sodium 100 mg 11/25/21 22:00 11/26/21 21:53 Docusate Sodium 100 Mg Cap PO 100 mg BID NANDINI Administration Enoxaparin Sodium 70 mg 11/26/21 12:30 11/26/21 21:55 Enoxaparin 80 Mg/0.8 Ml Inj SUB-Q 70 mg Q12HR NANDINI Administration Hydralazine HCl 10 mg 11/22/21 05:58 Hydralazine 20 Mg/1 Ml Inj IV Q6H PRN Blood Pressure Hydromorphone HCl 0.5 mg 11/22/21 05:48 11/23/21 06:02 Hydromorphone 1 Mg/1 Ml Inj IV 0.5 mg Q3H PRN Administration Pain , Severe (7-10) Sodium Chloride 1,000 mls @ 100 mls/hr 11/22/21 06:00 11/26/21 22:47 Nacl 0.45% 1000 Ml IV 100 mls/hr DIRECT NANDINI Administration REMDESIVIR 100 mg/ Sodium 250 mls @ 500 mls/hr 11/26/21 21:00 11/26/21 21:52 Chloride IV 11/29/21 21:29 500 mls/hr Q24HR@2100 NANDINI Administration Insulin Human Lispro 0 unit 11/22/21 07:30 11/26/21 22:45 Insulin Lispro 100 Unit/Ml SUB-Q 2 unit ACHS NANDINI Administration Protocol Morphine Sulfate 2 mg 11/22/21 05:48 11/22/21 22:43 Morphine 2 Mg/1 Ml Inj IV 2 mg Q4H PRN Administration Pain, Moderate (4-6) Ondansetron HCl 4 mg 11/22/21 05:48 Ondansetron 4 Mg/2 Ml Inj IV Q8H PRN Nausea And Vomiting Sodium Chloride 10 ml 11/22/21 10:00 11/26/21 21:53 Sodium Chloride 0.9% 10 Ml Flush Syringe IV 10 ml BID NANDINI Administration Sodium Chloride 10 ml 11/22/21 05:48 Sodium Chloride 0.9% 10 Ml Flush Syringe IV PRN PRN LINE FLUSH Sodium Chloride 50 ml 11/26/21 01:45 11/26/21 21:54 Sodium Chloride 0.9% 50 Ml Ivpb IV 11/29/21 21:01 50 ml Q24HR@2100 NANDINI Administration Nutrition/Malnutrition Assess - Dietary Evaluation Nutrition/Malnutrition Findings: Nutrition Notes Start: 11/22/21 14:16 Freq: Status: Active Protocol: Document 11/22/21 14:16 CW (Rec: 11/22/21 14:29 CW [id number]) Nutrition Notes Need for Assessment generated from: Education Initial or Follow up Assessment Current Diagnosis Acute Kidney Injury,Diabetes, Hypertension Other Pertinent Diagnosis Metabolic encephalopathy, UTI, Covid 19 Current Diet Cardiac Consistent Carbohydrate Labs/Tests 11/21: K 3.2 BUN 23 Cr 1.4 BG 210 Pertinent Medications 1/2NS at 100 ml/hr Height 5 ft 11 in Weight 63.5 kg [place] Body Weight (kg) 78.18 BMI 19.5 Weight Status Underweight Subjective/Other Information MD consult for diet education. Diet education apporpriate at this time. Pt with AMS. No hgbA1c available. Pt under contact precautions for out of facitlity positive covid test . Unable to obtain nutrition hx at this time. Per RN, pt consuming 100% of meals today. Isak score of 18. Percent of energy/protein needs met: 100%/100% Burn Absent Trauma Absent GI Symptoms None Skin Integrity/Comment intact Current % PO Good (75-100%) Minimum of two criteria No physical signs of malnutrition #1 Nutrition Diagnosis Underweight Etiology advanced age As Evidenced by Signs and Symptoms low BMI of 19.5 for advanced age Is patient on ventilator? No Is Patient Ambulatory and/or Out of Bed Yes REE-([facility] [place]-ambulatory/OOB) [ 1770.769 [id number]] Calculation Used for Recommendations [facility] Additional Notes protein needs:64 - 76g (1 - 1. 2g/kgBW) Fluid needs: 1 ml/kcal or per MD order Nutrition Intervention Change Diet Order: Continue current diet as ordered Add Supplement/Snack (indicate name/kcal Ensure Enlive BID /protein ) Provides kCal: 700 Provides Protein (gm) 40 Goal #1 Meet at least 80% of kcal needs Anticipated Discharge Needs: Cardiac Consistent Carbohydrate Diet Follow-Up By: 11/26/21 Additional Comments F/U for stable intakes and ONS toleration
--- NOTE | 2021-11-27 09:17 | Consultation ---
History of Present Illness - History of Present Illness Thank you for the consultation Patient was evaluated today, from renal standpoint, direct [id number] examination was not performed due to ongoing pandemic, recent surgery, reduce the risk of spread across infection and transmission. My assessment and plan are as follows Acute kidney injury, patient baseline creatinine was around 1.3 on November 23 c urrent creatinine is around 1.6- 1.7 range now, patient is nonoliguric, Consider holding any form of MIREYA or ARB or diuretic for now, when necessary use of diuretic can be considered When renal function stabilizes could consider initiating low-dose ARB as well as diuretics and at a later date spironolactone Patient does have some risk factors for underlying chronic kidney disease will order for renal ultrasonogram and urinary studies #Mild hypernatremia, relative hypokalemia, #Malnutrition due to acute illness, Covid 19 #Anemia, hemoglobin currently at 9.1 #Blood pressure currently well controlled relatively bradycardic 45, needs observation at this time Currently on when necessary hydralazine #Encephalopathy upon admission, patient was also taking gabapentin 300 mg twice a day, #History of congestive heart failure, patient was taking carvedilol, spironolactone as well as Entresto prior to admission Ejection fraction was noted to be around 35% #Severe Covid 19 pneumonia, hypoxic respiratory failure, underlying congestive heart failure #Recently treated for Klebsiella urinary tract infection/has been diagnosed with Covid 19,/ Author: Will Wright M.D. [facility], [address] [place] [address] Tel; [phone] Source of information: From The current chart history of present illness: 81-year-old male who has been admitted here with severe bilateral pneumonia Covid 19 infection, creatinine was recently noted to be worsening in the last few days, low his creatinine was around 1.3 and currently is around 1.61.7, patient also does have history of congestive heart failure ejection fraction has been noted to be about 35%, Events of this hospitalization have been noted, Past medical history: hypertension Congestive heart failure diabetes Urinary tract infection Current allergies: Reviewed from the current chart Social history: Reviewed from the current chart Family history: Reviewed from the current chart Review of system:Reviewed from the current chart Physical examination Reviewed from the current chart Labs and x-rays: Reviewed from this admission Past History Past Medical History: diabetes, hypertension Past Surgical History: No surgical history Social history: no significant social history Family history: hypertension Medications and Allergies Allergies Allergy/AdvReac Type Severity Reaction Status Date / Time No Known Allergies Allergy Verified 11/22/21 05:55 Home Medications Medication Instructions Recorded Confirmed Last Taken Type Furosemide [Lasix TAB] 80 mg PO TID 11/24/21 11/24/21 Unknown History Furosemide [Lasix] 40 mg PO BID 11/24/21 11/24/21 Unknown History Gabapentin [Neurontin] 300 mg PO BID 11/24/21 11/24/21 Unknown History Insulin Glargine [Lantus VIAL] SQ 11/24/21 Unknown History Nepafenac [Ilevro] 1 drop OD DAILY 11/24/21 11/24/21 Unknown History Sacubitril/Valsartan [Entresto 1 tab PO BID 11/24/21 11/24/21 Unknown History 49-51 mg] Spironolactone [Aldactone] 25 mg PO QDAY 11/24/21 11/24/21 Unknown History Tamsulosin [Flomax] 0.4 mg PO QDAY 11/24/21 11/24/21 Unknown History carvediloL [Coreg] 6.25 mg PO BID 11/24/21 11/24/21 Unknown History Active Meds: Active Medications Acetaminophen (Acetaminophen 325 Mg Tab) 650 mg PO Q4H PRN PRN Reason: Pain MILD(1-3)/Fever >100.5/BRODY Albuterol (Albuterol 2.5 Mg/3 Ml Nebu) 2.5 mg IH Q4HRT PRN PRN Reason: Shortness Of Breath Dexamethasone (Dexamethasone 4 Mg/Ml Vial) 6 mg IV Q24HR [facility] Stop: 12/05/21 10:01 Last Admin: 11/26/21 13:33 Dose: 6 mg Dextrose (Dextrose 50% In Water (25gm) 50 Ml Syringe) 50 ml IV Q30MIN PRN; Protocol PRN Reason: Hypoglycemia Docusate Sodium (Docusate Sodium 100 Mg Cap) 100 mg PO BID [facility] Last Admin: 11/26/21 21:53 Dose: 100 mg Enoxaparin Sodium (Enoxaparin 80 Mg/0.8 Ml Inj) 70 mg SUB-Q Q12HR [facility] Last Admin: 11/26/21 21:55 Dose: 70 mg Hydralazine HCl (Hydralazine 20 Mg/1 Ml Inj) 10 mg IV Q6H PRN PRN Reason: Blood Pressure Hydromorphone HCl (Hydromorphone 1 Mg/1 Ml Inj) 0.5 mg IV Q3H PRN PRN Reason: Pain , Severe (7-10) Last Admin: 11/23/21 06:02 Dose: 0.5 mg Sodium Chloride (Nacl 0.45% 1000 Ml) 1,000 mls @ 100 mls/hr IV DIRECT [facility] Last Admin: 11/26/21 22:47 Dose: 100 mls/hr REMDESIVIR 100 mg/ Sodium (Chloride) 250 mls @ 500 mls/hr IV Q24HR@2100 [facility] Stop: 11/29/21 21:29 Last Admin: 11/26/21 21:52 Dose: 500 mls/hr Insulin Human Lispro (Insulin Lispro 100 Unit/Ml) 0 unit SUB-Q ACHS [facility]; Protocol Last Admin: 11/26/21 22:45 Dose: 2 unit Morphine Sulfate (Morphine 2 Mg/1 Ml Inj) 2 mg IV Q4H PRN PRN Reason: Pain, Moderate (4-6) Last Admin: 11/22/21 22:43 Dose: 2 mg Ondansetron HCl (Ondansetron 4 Mg/2 Ml Inj) 4 mg IV Q8H PRN PRN Reason: Nausea And Vomiting Sodium Chloride (Sodium Chloride 0.9% 10 Ml Flush Syringe) 10 ml IV BID [facility] Last Admin: 11/26/21 21:53 Dose: 10 ml Sodium Chloride (Sodium Chloride 0.9% 10 Ml Flush Syringe) 10 ml IV PRN PRN PRN Reason: LINE FLUSH Sodium Chloride (Sodium Chloride 0.9% 50 Ml Ivpb) 50 ml IV Q24HR@2100 [facility] Stop: 11/29/21 21:01 Last Admin: 11/26/21 21:54 Dose: 50 ml Exam - Vital Signs Vital signs: Vital Signs Temp Pulse Resp BP Pulse Ox 98.5 F 61 18 124/73 94 11/21/21 19:28 11/21/21 19:28 11/21/21 19:28 11/21/21 19:28 11/21/21 19:28 Results - Lab Results 11/27/21 05:17 11/27/21 05:17 Most recent lab results Calcium 8.1 mg/dL (8.4-10.2) L 11/27/21 05:17
[2021-11-27] MEDS: INSULIN LISPRO 100 UNIT/ML SUB-Q SCH ×4 (10:03→21:15)
[2021-11-27] MEDS: ENOXAPARIN 80 MG/0.8 ML INJ SUB-Q SCH ×2 (10:04→21:15)
[2021-11-27] MEDS: dexAMETHasone 4 MG/ML VIAL IV SCH (10:04)
[2021-11-27] MEDS: DOCUSATE SODIUM 100 MG CAP PO SCH ×2 (10:04→21:15)
--- NOTE | 2021-11-27 11:19 | Progress Note ---
Assessment and Plan Cultures: Blood culture no growth so far Urine culture no growth so far A/P:81-year-old man past medical history hypertension, diabetes #Severe COVID-19 pneumonia: Patient presented with a week of symptoms, chest x- ray with diffuse bilateral infiltrates, admission O2 sats on room air. Inflammatory markers elevated #Acute hypoxemic respiratory failure: Likely secondary to COVID-19 infection. Currently on high flow nasal cannula 15 L/min #Diabetes: tight glycemic control for best outcomes. #Altered mental status #Fecal impaction Recommendations: -Steroids for 10 days -Remdesivir 200 mg IV q day x 1 followed by 100 mg IV q day x 4 days -Had UTI at [facility] however urine cultures here negative and urinalysis contaminated with blood -Check new CRP, if >7.5 and still requiring HFNC >30L/min give Actemra once. -Obtain q48-72h inflammatory markers - ferritin, Ddimer, CRP, LDH -Completed 5 days ceftriaxone here. -Anticoagulation per hospital protocol -Proning as able Thank you for the consult, we will continue to follow. Rand Aguiar MD [facility], [facility] O: [phone] F: [phone] Subjective Date of service: 11/27/21 Principal diagnosis: Acute encephalopathy Interval history: Afebrile, white count increased today. On HFNC Objective - Exam Narrative Exam: Physical exam deferred to reduce risk of transmission of COVID-19. Please refer to primary team's note. - Constitutional Vitals: Vital Signs Temp Pulse Resp BP Pulse Ox 97.9 F 45 L 16 126/77 100 11/26/21 22:20 11/26/21 22:20 11/26/21 22:20 11/26/21 22:20 11/27/21 02:00 Temperature -Last 24 Hours Temperature 97.9 F Temperature 98.3 F Temperature 98.9 F Temperature 97.9 F - Labs CBC & Chem 7: 11/27/21 05:17 11/27/21 05:17 Labs: Abnormal lab results 11/26/21 11/26/21 11/26/21 Range/Units 11:09 16:37 16:44 WBC (4.5-11.0) K/mm3 RBC (3.65-5.03) M/mm3 Hgb (11.8-15.2) gm/dl Hct (35.5-45.6) % MCHC (32-34) % D-Dimer 1279.46 H (0-234) ng/mlDDU Sodium (137-145) mmol/L Chloride (98-107) mmol/L BUN (9-20) mg/dL Creatinine (0.8-1.3) mg/dL Glucose (75-100) mg/dL POC Glucose 198 H 154 H (70-105) mg/dL Uric Acid (3.5-7.6) mg/dL Calcium (8.4-10.2) mg/dL Alkaline Phosphatase (35-129) units/L Total Protein (6.3-8.2) g/dL Albumin (3.9-5) g/dL 11/26/21 11/27/21 11/27/21 Range/Units 22:20 05:17 05:17 WBC 14.0 H (4.5-11.0) K/mm3 RBC 3.12 L (3.65-5.03) M/mm3 Hgb 9.1 L (11.8-15.2) gm/dl Hct 29.3 L (35.5-45.6) % MCHC 31 L (32-34) % D-Dimer (0-234) ng/mlDDU Sodium 147 H (137-145) mmol/L Chloride 107.3 H (98-107) mmol/L BUN 37 H (9-20) mg/dL Creatinine 1.6 H (0.8-1.3) mg/dL Glucose 197 H (75-100) mg/dL POC Glucose 173 H (70-105) mg/dL Uric Acid (3.5-7.6) mg/dL Calcium 8.1 L (8.4-10.2) mg/dL Alkaline Phosphatase 211 H (35-129) units/L Total Protein 5.6 L (6.3-8.2) g/dL Albumin 2.5 L (3.9-5) g/dL 11/27/21 Range/Units Unknown WBC (4.5-11.0) K/mm3 RBC (3.65-5.03) M/mm3 Hgb (11.8-15.2) gm/dl Hct (35.5-45.6) % MCHC (32-34) % D-Dimer (0-234) ng/mlDDU Sodium (137-145) mmol/L Chloride (98-107) mmol/L BUN (9-20) mg/dL Creatinine (0.8-1.3) mg/dL Glucose (75-100) mg/dL POC Glucose (70-105) mg/dL Uric Acid 9.8 H (3.5-7.6) mg/dL Calcium (8.4-10.2) mg/dL Alkaline Phosphatase (35-129) units/L Total Protein (6.3-8.2) g/dL Albumin (3.9-5) g/dL
--- NOTE | 2021-11-27 11:24 | Consultation ---
History of Present Illness Consult date: 11/27/21 Requesting physician: NATE FARFAN Consult reason: congestive heart failure History of present illness: Patient is an 81-year-old male with a past medical history of CAD, AFib, HTN, HLD, COPD, Asthma, bladderCA, DM, and currently COVID-positive who was admitted for generalized weakness and altered mental status. History taken from chart due to patient's mental status. Patient was admitted to [facility] from November 17 to for similar complaints however at that time patient was reported to have been at his baseline in regards to his mental status. At that time patient was found to have a UTI and also tested positive for COVID then. Patient was discharged on antibiotics at that time. Patient then presented to [facility] 11/21/2021 due to his altered mental status. Patient is previously unknown to our practice but follows with [facility]. Cardiology was consulted for heart failure. Past History Past Medical History: atrial fib, CAD, cancer, COPD, diabetes, hypertension Past Surgical History: No surgical history Social history: no significant social history Family history: hypertension Medications and Allergies Allergies Allergy/AdvReac Type Severity Reaction Status Date / Time No Known Allergies Allergy Verified 11/22/21 05:55 Home Medications Medication Instructions Recorded Confirmed Last Taken Type Furosemide [Lasix TAB] 80 mg PO TID 11/24/21 11/24/21 Unknown History Gabapentin [Neurontin] 300 mg PO BID 11/24/21 11/27/21 11/19/21 09:12 History 300 mg Sacubitril/Valsartan [Entresto 1 tab PO BID 11/24/21 11/27/21 11/19/21 09:12 History 49-51 mg] 1 tab Spironolactone [Aldactone] 25 mg PO QDAY 11/24/21 11/27/21 11/19/21 09:12 History 25 mg Tamsulosin [Flomax] 0.4 mg PO QDAY 11/24/21 11/27/21 11/18/21 22:02 History 0.4 mg carvediloL [Coreg] 6.25 mg PO BID 11/24/21 11/27/21 11/19/21 09:12 History 6.25mg AtorvaSTATin [Lipitor] 40 mg PO QHS 11/27/21 11/27/21 11/19/21 09:12 History 40 mg Insulin Glargine,Hum.rec.anlog 12 unit SQ QHS 11/27/21 11/27/21 11/18/21 22:02 History [Lantus Solostar] 12 units Insulin Lispro [Admelog] 1 - 12 unit SQ TIDAC 11/27/21 11/27/21 11/19/21 08:32 History 6 units Insulin Lispro [Admelog] 4 unit SQ TID 11/27/21 11/27/21 11/19/21 08:33 History 4 units oxyCODONE /ACETAMINOPHEN [Percocet 1 tab PO Q6HR PRN 11/27/21 11/27/21 11/19/21 03:57 History 5/325] 1 tab Active Meds: Active Medications Acetaminophen (Acetaminophen 325 Mg Tab) 650 mg PO Q4H PRN PRN Reason: Pain MILD(1-3)/Fever >100.5/BRODY Albuterol (Albuterol 2.5 Mg/3 Ml Nebu) 2.5 mg IH Q4HRT PRN PRN Reason: Shortness Of Breath Dexamethasone (Dexamethasone 4 Mg/Ml Vial) 6 mg IV Q24HR [facility] Stop: 12/05/21 10:01 Last Admin: 11/27/21 10:04 Dose: 6 mg Dextrose (Dextrose 50% In Water (25gm) 50 Ml Syringe) 50 ml IV Q30MIN PRN; Protocol PRN Reason: Hypoglycemia Docusate Sodium (Docusate Sodium 100 Mg Cap) 100 mg PO BID [facility] Last Admin: 11/27/21 10:04 Dose: 100 mg Enoxaparin Sodium (Enoxaparin 80 Mg/0.8 Ml Inj) 70 mg SUB-Q Q12HR [facility] Last Admin: 11/27/21 10:04 Dose: 70 mg Hydralazine HCl (Hydralazine 20 Mg/1 Ml Inj) 10 mg IV Q6H PRN PRN Reason: Blood Pressure Hydromorphone HCl (Hydromorphone 1 Mg/1 Ml Inj) 0.5 mg IV Q3H PRN PRN Reason: Pain , Severe (7-10) Last Admin: 11/23/21 06:02 Dose: 0.5 mg Sodium Chloride (Nacl 0.45% 1000 Ml) 1,000 mls @ 100 mls/hr IV DIRECT [facility] Last Admin: 11/26/21 22:47 Dose: 100 mls/hr REMDESIVIR 100 mg/ Sodium (Chloride) 250 mls @ 500 mls/hr IV Q24HR@2100 [facility] Stop: 11/29/21 21:29 Last Admin: 11/26/21 21:52 Dose: 500 mls/hr Insulin Human Lispro (Insulin Lispro 100 Unit/Ml) 0 unit SUB-Q ACHS [facility]; Protocol Last Admin: 11/27/21 10:03 Dose: Not Given Morphine Sulfate (Morphine 2 Mg/1 Ml Inj) 2 mg IV Q4H PRN PRN Reason: Pain, Moderate (4-6) Last Admin: 11/22/21 22:43 Dose: 2 mg Ondansetron HCl (Ondansetron 4 Mg/2 Ml Inj) 4 mg IV Q8H PRN PRN Reason: Nausea And Vomiting Sodium Chloride (Sodium Chloride 0.9% 10 Ml Flush Syringe) 10 ml IV BID [facility] Last Admin: 11/27/21 10:04 Dose: 10 ml Sodium Chloride (Sodium Chloride 0.9% 10 Ml Flush Syringe) 10 ml IV PRN PRN PRN Reason: LINE FLUSH Sodium Chloride (Sodium Chloride 0.9% 50 Ml Ivpb) 50 ml IV Q24HR@2100 [facility] Stop: 11/29/21 21:01 Last Admin: 11/26/21 21:54 Dose: 50 ml Review of Systems ROS unobtainable: due to mental status Physical Examination Vital Signs Temp Pulse Resp BP Pulse Ox 98.5 F 61 18 124/73 94 11/21/21 19:28 11/21/21 19:28 11/21/21 19:28 11/21/21 19:28 11/21/21 19:28 General appearance: no acute distress HEENT: Positive: Mucus Membranes Dry Neck: Positive: trachea midline Cardiac: Positive: Regular Rhythm, Bradycardia Lungs: Positive: Decreased Breath Sounds Neuro: Positive: Grossly Intact Abdomen: Positive: Soft Skin: Negative: Rash, Suspicious Lesions, Ulceration Extremities: Present: upper extr. pulses. Absent: edema Results 11/27/21 05:17 11/27/21 05:17 Cardiac Enzymes 11/27/21 Range/Units 05:17 AST 32 (5-40) units/L CBC 11/27/21 Range/Units 05:17 WBC 14.0 H (4.5-11.0) K/mm3 RBC 3.12 L (3.65-5.03) M/mm3 Hgb 9.1 L (11.8-15.2) gm/dl Hct 29.3 L (35.5-45.6) % Plt Count 327 (140-440) K/mm3 Comprehensive Metabolic Panel 11/27/21 Range/Units 05:17 Sodium 147 H (137-145) mmol/L Potassium 3.6 (3.6-5.0) mmol/L Chloride 107.3 H (98-107) mmol/L Carbon Dioxide 23 (22-30) mmol/L BUN 37 H (9-20) mg/dL Creatinine 1.6 H (0.8-1.3) mg/dL Glucose 197 H (75-100) mg/dL Calcium 8.1 L (8.4-10.2) mg/dL AST 32 (5-40) units/L ALT 31 (7-56) units/L Alkaline Phosphatase 211 H (35-129) units/L Total Protein 5.6 L (6.3-8.2) g/dL Albumin 2.5 L (3.9-5) g/dL - Imaging and Cardiology Echo: report reviewed EKG interpretations - Telemetry EKG Rhythm: Sinus Bradycardia Assessment and Plan Patient is an 81-year-old male with a past medical history of CAD, AFib, HTN, HLD, COPD, Asthma, h/o 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 Currently anticoagulated on Lovenox COPD DM Echo 12/01/2020- LVEF 35 - 40%. LV systolic function is moderately decreased,Grade I (mild) diastolic dysfunction. There were technical limitations during this study due to patient positioning and patient body habitus. Poor views unable to evaluate any of the valves PET Stress 01/31/2021- Abnormal pharmacological PET stress test. There is a small sized mild to moderate intensity partially reversible perfusion defect seen in the apical inferior wall consistent with infarct/scar and a small amount of ischemia. SSS 3, SRS 1, SDS 2. TID 0.84(normal).Severely depressed resting LV systolic function with a calculated LVEF 22% at rest which increased to 29% with peak stress. Global LV hypokinesis. Coronary calcifications were not seen by chest CT, however CT for attenuation correction is not sensitive. Stress ECG was negative for ischemia. No symptoms of chest pain with vasodilator stress Outpatient medications: Coreg 6.25 mg p.o. twice daily atorvastatin 40 mg p.o. nightly, spironolactone 25 mg p.o. daily, Entresto 49-51 mg p.o. twice daily, Lasix 80 mg p.o. 3 times daily Plan: No EKG in chart. EKG pending patient has no complaint of chest pain Per documentation patient has a history of A. fib unclear as to why patient is not on anticoagulation as an outpatient. However patient is currently anticoagulated on Lovenox Patient currently sinus bradycardia 40 to 50s on monitor Due to bradycardia and soft BP will hold beta-blockers and other anti hypertensive medications No MIREYA or ARB due to elevated creatinine. No diuretics per nephrology recs Echo pending Will hold statin therapy due to elevated liver enzymes Patient seen in conjunction with Dr. Schaefer who agrees with this plan of care
--- NOTE | 2021-11-27 11:48 | Progress Note ---
Assessment and Plan 81 y/o male with acute respiratory failure likely secondary to COVID but also could be from volume overload, with renal failure and Kleibsiella UTI. 11/27/21: Prone as tolerated. Wean FiO2 for sats >88%. Suggest daily net negative state if bp and renal function will allow. Cards now following, defer diuresis to them. Appreciate ID note. Continue steroids and remdesivir. ID considering actemra, awaiting repeat CRP 1. ID-Was on rocephin in [facility], then was discharged on levaquin for 2 days. Kleb is resistant to ampicillin bactrim and tetracycline. Was sensitive to everything else. ID following. not currently on abx. Has been afebile no white count 2. Pulm- acute respiratory failure with worsening while in house. Could be all related to COVID but given his history of systolic CHF, could be volume related as well as it was so acute after a couple days of IV hydration. If renal function and bp would allow, would attempt some yennifer IV diuresis. Prone given COVID and agree with steroids and Remdesivir. 3. Guarded prognosis, will continue to follow Subjective Date of service: 11/27/21 Principal diagnosis: Acute encephalopathy Interval history: Remains on HFNC. Sats stable. Still with positive fluid balance. Cards has been consulted now. Objective Vital Signs - 12hr 11/27/21 02:00 O2 Sat by Pulse 100 Oximetry CBC and BMP: 11/27/21 05:17 11/27/21 05:17 ABG, PT/INR, D-dimer: PT/INR, D-dimer D-Dimer 1279.46 ng/mlDDU (0-234) H 11/26/21 16:44 Abnormal lab findings: Abnormal Labs 11/21/21 11/21/21 11/21/21 19:36 19:36 19:37 WBC RBC 3.56 L Hgb 10.8 L Hct 34.1 L MCV 96 H MCHC RDW 15.3 H Lymph % (Auto) [place] % (Auto) Lymph # (Auto) Seg Neutrophils % Seg Neuts % (Manual) 79.0 H Lymphocytes % (Manual) 10.0 L Monocytes % (Manual) 8.0 H Basophils % (Manual) 3.0 H Seg Neutrophils # Lymphocytes # (Manual) 0.7 L Basophils # (Manual) 0.2 H D-Dimer Sodium Potassium 3.2 L Chloride BUN 23 H Creatinine 1.4 H Glucose 210 H POC Glucose Uric Acid Calcium 8.2 L AST 45 H Alkaline Phosphatase 133 H C-Reactive Protein Total Protein Albumin 3.0 L TSH Urine WBC (Auto) 48.0 H Coronavirus (PCR) 11/21/21 11/22/21 11/22/21 19:37 11:52 15:52 WBC RBC Hgb Hct MCV MCHC RDW Lymph % (Auto) [place] % (Auto) Lymph # (Auto) Seg Neutrophils % Seg Neuts % (Manual) Lymphocytes % (Manual) Monocytes % (Manual) Basophils % (Manual) Seg Neutrophils # Lymphocytes # (Manual) Basophils # (Manual) D-Dimer Sodium Potassium Chloride BUN Creatinine Glucose POC Glucose 144 H 194 H Uric Acid Calcium AST Alkaline Phosphatase C-Reactive Protein Total Protein Albumin TSH 4.800 H Urine WBC (Auto) Coronavirus (PCR) 11/22/21 11/23/21 11/23/21 20:42 04:48 04:48 WBC RBC 3.22 L Hgb 9.8 L Hct 30.9 L MCV 96 H MCHC RDW Lymph % (Auto) [place] % (Auto) 9.4 H Lymph # (Auto) 1.1 L Seg Neutrophils % 76.5 H Seg Neuts % (Manual) Lymphocytes % (Manual) Monocytes % (Manual) Basophils % (Manual) Seg Neutrophils # Lymphocytes # (Manual) Basophils # (Manual) D-Dimer Sodium Potassium 3.1 L Chloride BUN 24 H Creatinine Glucose 112 H POC Glucose 155 H Uric Acid Calcium 8.1 L AST Alkaline Phosphatase C-Reactive Protein Total Protein Albumin TSH Urine WBC (Auto) Coronavirus (PCR) 11/23/21 11/23/21 11/23/21 08:03 12:24 16:37 WBC RBC Hgb Hct MCV MCHC RDW Lymph % (Auto) [place] % (Auto) Lymph # (Auto) Seg Neutrophils % Seg Neuts % (Manual) Lymphocytes % (Manual) Monocytes % (Manual) Basophils % (Manual) Seg Neutrophils # Lymphocytes # (Manual) Basophils # (Manual) D-Dimer Sodium Potassium Chloride BUN Creatinine Glucose POC Glucose 111 H 106 H 112 H Uric Acid Calcium AST Alkaline Phosphatase C-Reactive Protein Total Protein Albumin TSH Urine WBC (Auto) Coronavirus (PCR) 11/23/21 11/23/21 11/24/21 20:45 Unknown 11:47 WBC RBC Hgb Hct MCV MCHC RDW Lymph % (Auto) [place] % (Auto) Lymph # (Auto) Seg Neutrophils % Seg Neuts % (Manual) Lymphocytes % (Manual) Monocytes % (Manual) Basophils % (Manual) Seg Neutrophils # Lymphocytes # (Manual) Basophils # (Manual) D-Dimer Sodium Potassium Chloride BUN Creatinine Glucose POC Glucose 179 H 142 H Uric Acid Calcium AST Alkaline Phosphatase C-Reactive Protein Total Protein Albumin TSH Urine WBC (Auto) Coronavirus (PCR) Positive A 11/24/21 11/24/21 11/25/21 18:09 20:52 05:27 WBC RBC 3.22 L Hgb 9.6 L Hct 31.1 L MCV 97 H MCHC 31 L RDW 15.6 H Lymph % (Auto) 10.5 L [place] % (Auto) Lymph # (Auto) 1.1 L Seg Neutrophils % 82.0 H Seg Neuts % (Manual) Lymphocytes % (Manual) Monocytes % (Manual) Basophils % (Manual) Seg Neutrophils # 8.7 H Lymphocytes # (Manual) Basophils # (Manual) D-Dimer Sodium Potassium Chloride BUN Creatinine Glucose POC Glucose 107 H 209 H Uric Acid Calcium AST Alkaline Phosphatase C-Reactive Protein Total Protein Albumin TSH Urine WBC (Auto) Coronavirus (PCR) 11/25/21 11/25/21 11/25/21 05:27 05:27 13:43 WBC RBC Hgb Hct MCV MCHC RDW Lymph % (Auto) [place] % (Auto) Lymph # (Auto) Seg Neutrophils % Seg Neuts % (Manual) Lymphocytes % (Manual) Monocytes % (Manual) Basophils % (Manual) Seg Neutrophils # Lymphocytes # (Manual) Basophils # (Manual) D-Dimer Sodium 146 H Potassium Chloride 108.2 H BUN Creatinine Glucose 145 H 191 H POC Glucose Uric Acid Calcium 7.8 L AST 67 H Alkaline Phosphatase C-Reactive Protein 25.00 H Total Protein 5.1 L D Albumin 2.5 L TSH Urine WBC (Auto) Coronavirus (PCR) 11/25/21 11/26/21 11/26/21 18:16 05:00 08:01 WBC RBC Hgb Hct MCV MCHC RDW Lymph % (Auto) [place] % (Auto) Lymph # (Auto) Seg Neutrophils % Seg Neuts % (Manual) Lymphocytes % (Manual) Monocytes % (Manual) Basophils % (Manual) Seg Neutrophils # Lymphocytes # (Manual) Basophils # (Manual) D-Dimer Sodium Potassium Chloride BUN 28 H Creatinine 1.7 H Glucose 236 H POC Glucose 149 H 206 H Uric Acid Calcium 7.8 L AST 51 H Alkaline Phosphatase 233 H C-Reactive Protein Total Protein 5.9 L Albumin 2.3 L TSH Urine WBC (Auto) Coronavirus (PCR) 11/26/21 11/26/21 11/26/21 08:21 11:09 16:37 WBC RBC Hgb Hct MCV MCHC RDW Lymph % (Auto) [place] % (Auto) Lymph # (Auto) Seg Neutrophils % Seg Neuts % (Manual) Lymphocytes % (Manual) Monocytes % (Manual) Basophils % (Manual) Seg Neutrophils # Lymphocytes # (Manual) Basophils # (Manual) D-Dimer Sodium Potassium Chloride BUN 28 H Creatinine 1.5 H Glucose POC Glucose 198 H 154 H Uric Acid Calcium AST Alkaline Phosphatase C-Reactive Protein Total Protein Albumin TSH Urine WBC (Auto) Coronavirus (PCR) 11/26/21 11/26/21 11/27/21 16:44 22:20 05:17 WBC 14.0 H RBC 3.12 L Hgb 9.1 L Hct 29.3 L MCV MCHC 31 L RDW Lymph % (Auto) [place] % (Auto) Lymph # (Auto) Seg Neutrophils % Seg Neuts % (Manual) Lymphocytes % (Manual) Monocytes % (Manual) Basophils % (Manual) Seg Neutrophils # Lymphocytes # (Manual) Basophils # (Manual) D-Dimer 1279.46 H Sodium Potassium Chloride BUN Creatinine Glucose POC Glucose 173 H Uric Acid Calcium AST Alkaline Phosphatase C-Reactive Protein Total Protein Albumin TSH Urine WBC (Auto) Coronavirus (PCR) 11/27/21 11/27/21 11/27/21 05:17 11:22 Unknown WBC RBC Hgb Hct MCV MCHC RDW Lymph % (Auto) [place] % (Auto) Lymph # (Auto) Seg Neutrophils % Seg Neuts % (Manual) Lymphocytes % (Manual) Monocytes % (Manual) Basophils % (Manual) Seg Neutrophils # Lymphocytes # (Manual) Basophils # (Manual) D-Dimer Sodium 147 H Potassium Chloride 107.3 H BUN 37 H Creatinine 1.6 H Glucose 197 H POC Glucose 185 H Uric Acid 9.8 H Calcium 8.1 L AST Alkaline Phosphatase 211 H C-Reactive Protein Total Protein 5.6 L Albumin 2.5 L TSH Urine WBC (Auto) Coronavirus (PCR)
[2021-11-27 14:25] LABS: Bacteria,Urine 1+ /HPF (Negative); Bilirubin,Urine NEG (Negative); Blood,Urine NEG (Negative); Color,Urine Amber (Yellow); Mucus,Urine FEW /HPF; Protein,Urine <15 mg/dL mg/dL (Negative); Urobilinogen,Urine < 2.0 mg/dL (<2.0)
[2021-11-27] MEDS ORDERED: TOCILIZUMAB 648 MG in SODIUM CHLORIDE 0.9% 100 ML IV SCH (14:30)
[2021-11-27 14:52] LABS: Creatinine,Urine 80.9 mg/dL (0.1-20.0)
--- NOTE | 2021-11-27 17:58 | Ultrasound Report ---
ULTRASOUND RENAL INDICATION: renal failure. COMPARISON: No relevant prior imaging study available. FINDINGS: RIGHT KIDNEY: Size: 10.0 cm. Echogenicity: Normal. Cortical thickness: 1.4 cm. Stones: None. Hydronephrosis: None. Cyst or mass: Multiple right renal cysts measuring up to 2.6 cm.. LEFT KIDNEY: Size: 9.8 cm. Echogenicity: Normal. Cortical thickness: 1.0 cm. Stones: None. Hydronephrosis: Mild. Cyst or mass: 1.2 cm simple cyst. Urinary Bladder: No significant abnormality. Free Fluid: None. Additional Findings: None. IMPRESSION 1. Mild left hydronephrosis.. Signer Name: Gordo Powell MD Signed: 11/27/2021 5:54 PM Workstation Name: [id number]
[2021-11-27] MEDS: SODIUM CHLORIDE 0.9% 50 ML IVPB IV SCH (21:15)
[2021-11-27] MEDS: REMDESIVIR 100 MG in SODIUM CHLORIDE 0.9% 250ML 250 ML IV SCH (21:15)
[2021-11-28 08:30] LABS: Albumin 2.5 g/dL (3.9-5); Calcium 8.3 mg/dL (8.4-10.2)
--- NOTE | 2021-11-28 08:34 | Progress Note ---
Assessment and Plan 81 y/o male with acute respiratory failure likely secondary to COVID but also could be from volume overload, with renal failure and Kleibsiella UTI. 11/28/21: Please continue net negative state daily as this has really helped with oxygen requirement. Wean FiO2 for sats >88% 11/27/21: Prone as tolerated. Wean FiO2 for sats >88%. Suggest daily net negative state if bp and renal function will allow. Cards now following, defer diuresis to them. Appreciate ID note. Continue steroids and remdesivir. ID considering actemra, awaiting repeat CRP 1. ID-Was on rocephin in [facility], then was discharged on levaquin for 2 days. Kleb is resistant to ampicillin bactrim and tetracycline. Was sensitive to everything else. ID following. not currently on abx. Has been afebile no white count 2. Pulm- acute respiratory failure with worsening while in house. Could be all related to COVID but given his history of systolic CHF, could be volume related as well as it was so acute after a couple days of IV hydration. If renal function and bp would allow, would attempt some yennifer IV diuresis. Prone given COVID and agree with steroids and Remdesivir. 3. Guarded prognosis, will continue to follow Subjective Date of service: 11/28/21 Principal diagnosis: Acute encephalopathy Interval history: No acute events. Down to 25 and 60%. Decent sats. He was weaned by Dr. Wick. Objective Vital Signs - 12hr 11/27/21 11/28/21 21:13 02:00 Pulse Rate 59 L Blood Pressure 132/68 O2 Sat by Pulse 97 99 Oximetry CBC and BMP: 11/27/21 05:17 11/28/21 06:47 ABG, PT/INR, D-dimer: PT/INR, D-dimer D-Dimer 1279.46 ng/mlDDU (0-234) H 11/26/21 16:44 Abnormal lab findings: Abnormal Labs 11/21/21 11/21/21 11/21/21 19:36 19:36 19:37 WBC RBC 3.56 L Hgb 10.8 L Hct 34.1 L MCV 96 H MCHC RDW 15.3 H Lymph % (Auto) [place] % (Auto) Lymph # (Auto) Seg Neutrophils % Seg Neuts % (Manual) 79.0 H Lymphocytes % (Manual) 10.0 L Monocytes % (Manual) 8.0 H Basophils % (Manual) 3.0 H Seg Neutrophils # Lymphocytes # (Manual) 0.7 L Basophils # (Manual) 0.2 H D-Dimer Sodium Potassium 3.2 L Chloride BUN 23 H Creatinine 1.4 H Glucose 210 H POC Glucose Uric Acid Calcium 8.2 L AST 45 H Alkaline Phosphatase 133 H C-Reactive Protein Total Protein Albumin 3.0 L TSH Urine WBC (Auto) 48.0 H Urine Creatinine Urine Total Protein Coronavirus (PCR) 11/21/21 11/22/21 11/22/21 19:37 11:52 15:52 WBC RBC Hgb Hct MCV MCHC RDW Lymph % (Auto) [place] % (Auto) Lymph # (Auto) Seg Neutrophils % Seg Neuts % (Manual) Lymphocytes % (Manual) Monocytes % (Manual) Basophils % (Manual) Seg Neutrophils # Lymphocytes # (Manual) Basophils # (Manual) D-Dimer Sodium Potassium Chloride BUN Creatinine Glucose POC Glucose 144 H 194 H Uric Acid Calcium AST Alkaline Phosphatase C-Reactive Protein Total Protein Albumin TSH 4.800 H Urine WBC (Auto) Urine Creatinine Urine Total Protein Coronavirus (PCR) 11/22/21 11/23/21 11/23/21 20:42 04:48 04:48 WBC RBC 3.22 L Hgb 9.8 L Hct 30.9 L MCV 96 H MCHC RDW Lymph % (Auto) [place] % (Auto) 9.4 H Lymph # (Auto) 1.1 L Seg Neutrophils % 76.5 H Seg Neuts % (Manual) Lymphocytes % (Manual) Monocytes % (Manual) Basophils % (Manual) Seg Neutrophils # Lymphocytes # (Manual) Basophils # (Manual) D-Dimer Sodium Potassium 3.1 L Chloride BUN 24 H Creatinine Glucose 112 H POC Glucose 155 H Uric Acid Calcium 8.1 L AST Alkaline Phosphatase C-Reactive Protein Total Protein Albumin TSH Urine WBC (Auto) Urine Creatinine Urine Total Protein Coronavirus (PCR) 11/23/21 11/23/21 11/23/21 08:03 12:24 16:37 WBC RBC Hgb Hct MCV MCHC RDW Lymph % (Auto) [place] % (Auto) Lymph # (Auto) Seg Neutrophils % Seg Neuts % (Manual) Lymphocytes % (Manual) Monocytes % (Manual) Basophils % (Manual) Seg Neutrophils # Lymphocytes # (Manual) Basophils # (Manual) D-Dimer Sodium Potassium Chloride BUN Creatinine Glucose POC Glucose 111 H 106 H 112 H Uric Acid Calcium AST Alkaline Phosphatase C-Reactive Protein Total Protein Albumin TSH Urine WBC (Auto) Urine Creatinine Urine Total Protein Coronavirus (PCR) 11/23/21 11/23/21 11/24/21 20:45 Unknown 11:47 WBC RBC Hgb Hct MCV MCHC RDW Lymph % (Auto) [place] % (Auto) Lymph # (Auto) Seg Neutrophils % Seg Neuts % (Manual) Lymphocytes % (Manual) Monocytes % (Manual) Basophils % (Manual) Seg Neutrophils # Lymphocytes # (Manual) Basophils # (Manual) D-Dimer Sodium Potassium Chloride BUN Creatinine Glucose POC Glucose 179 H 142 H Uric Acid Calcium AST Alkaline Phosphatase C-Reactive Protein Total Protein Albumin TSH Urine WBC (Auto) Urine Creatinine Urine Total Protein Coronavirus (PCR) Positive A 11/24/21 11/24/21 11/25/21 18:09 20:52 05:27 WBC RBC 3.22 L Hgb 9.6 L Hct 31.1 L MCV 97 H MCHC 31 L RDW 15.6 H Lymph % (Auto) 10.5 L [place] % (Auto) Lymph # (Auto) 1.1 L Seg Neutrophils % 82.0 H Seg Neuts % (Manual) Lymphocytes % (Manual) Monocytes % (Manual) Basophils % (Manual) Seg Neutrophils # 8.7 H Lymphocytes # (Manual) Basophils # (Manual) D-Dimer Sodium Potassium Chloride BUN Creatinine Glucose POC Glucose 107 H 209 H Uric Acid Calcium AST Alkaline Phosphatase C-Reactive Protein Total Protein Albumin TSH Urine WBC (Auto) Urine Creatinine Urine Total Protein Coronavirus (PCR) 11/25/21 11/25/21 11/25/21 05:27 05:27 13:43 WBC RBC Hgb Hct MCV MCHC RDW Lymph % (Auto) [place] % (Auto) Lymph # (Auto) Seg Neutrophils % Seg Neuts % (Manual) Lymphocytes % (Manual) Monocytes % (Manual) Basophils % (Manual) Seg Neutrophils # Lymphocytes # (Manual) Basophils # (Manual) D-Dimer Sodium 146 H Potassium Chloride 108.2 H BUN Creatinine Glucose 145 H 191 H POC Glucose Uric Acid Calcium 7.8 L AST 67 H Alkaline Phosphatase C-Reactive Protein 25.00 H Total Protein 5.1 L D Albumin 2.5 L TSH Urine WBC (Auto) Urine Creatinine Urine Total Protein Coronavirus (PCR) 11/25/21 11/26/21 11/26/21 18:16 05:00 08:01 WBC RBC Hgb Hct MCV MCHC RDW Lymph % (Auto) [place] % (Auto) Lymph # (Auto) Seg Neutrophils % Seg Neuts % (Manual) Lymphocytes % (Manual) Monocytes % (Manual) Basophils % (Manual) Seg Neutrophils # Lymphocytes # (Manual) Basophils # (Manual) D-Dimer Sodium Potassium Chloride BUN 28 H Creatinine 1.7 H Glucose 236 H POC Glucose 149 H 206 H Uric Acid Calcium 7.8 L AST 51 H Alkaline Phosphatase 233 H C-Reactive Protein Total Protein 5.9 L Albumin 2.3 L TSH Urine WBC (Auto) Urine Creatinine Urine Total Protein Coronavirus (PCR) 11/26/21 11/26/21 11/26/21 08:21 11:09 16:37 WBC RBC Hgb Hct MCV MCHC RDW Lymph % (Auto) [place] % (Auto) Lymph # (Auto) Seg Neutrophils % Seg Neuts % (Manual) Lymphocytes % (Manual) Monocytes % (Manual) Basophils % (Manual) Seg Neutrophils # Lymphocytes # (Manual) Basophils # (Manual) D-Dimer Sodium Potassium Chloride BUN 28 H Creatinine 1.5 H Glucose POC Glucose 198 H 154 H Uric Acid Calcium AST Alkaline Phosphatase C-Reactive Protein Total Protein Albumin TSH Urine WBC (Auto) Urine Creatinine Urine Total Protein Coronavirus (PCR) 11/26/21 11/26/21 11/27/21 16:44 22:20 05:17 WBC 14.0 H RBC 3.12 L Hgb 9.1 L Hct 29.3 L MCV MCHC 31 L RDW Lymph % (Auto) [place] % (Auto) Lymph # (Auto) Seg Neutrophils % Seg Neuts % (Manual) Lymphocytes % (Manual) Monocytes % (Manual) Basophils % (Manual) Seg Neutrophils # Lymphocytes # (Manual) Basophils # (Manual) D-Dimer 1279.46 H Sodium Potassium Chloride BUN Creatinine Glucose POC Glucose 173 H Uric Acid Calcium AST Alkaline Phosphatase C-Reactive Protein Total Protein Albumin TSH Urine WBC (Auto) Urine Creatinine Urine Total Protein Coronavirus (PCR) 11/27/21 11/27/21 11/27/21 05:17 05:17 11:22 WBC RBC Hgb Hct MCV MCHC RDW Lymph % (Auto) [place] % (Auto) Lymph # (Auto) Seg Neutrophils % Seg Neuts % (Manual) Lymphocytes % (Manual) Monocytes % (Manual) Basophils % (Manual) Seg Neutrophils # Lymphocytes # (Manual) Basophils # (Manual) D-Dimer Sodium 147 H Potassium Chloride 107.3 H BUN 37 H Creatinine 1.6 H Glucose 197 H POC Glucose 185 H Uric Acid Calcium 8.1 L AST Alkaline Phosphatase 211 H C-Reactive Protein 13.00 H Total Protein 5.6 L Albumin 2.5 L TSH Urine WBC (Auto) Urine Creatinine Urine Total Protein Coronavirus (PCR) 11/27/21 11/27/21 11/27/21 17:35 21:12 Unknown WBC RBC Hgb Hct MCV MCHC RDW Lymph % (Auto) [place] % (Auto) Lymph # (Auto) Seg Neutrophils % Seg Neuts % (Manual) Lymphocytes % (Manual) Monocytes % (Manual) Basophils % (Manual) Seg Neutrophils # Lymphocytes # (Manual) Basophils # (Manual) D-Dimer Sodium Potassium Chloride BUN Creatinine Glucose POC Glucose 144 H 127 H Uric Acid Calcium AST Alkaline Phosphatase C-Reactive Protein Total Protein Albumin TSH Urine WBC (Auto) 13.0 H Urine Creatinine Urine Total Protein Coronavirus (PCR) 11/27/21 11/27/21 11/28/21 Unknown Unknown 06:47 WBC RBC Hgb Hct MCV MCHC RDW Lymph % (Auto) [place] % (Auto) Lymph # (Auto) Seg Neutrophils % Seg Neuts % (Manual) Lymphocytes % (Manual) Monocytes % (Manual) Basophils % (Manual) Seg Neutrophils # Lymphocytes # (Manual) Basophils # (Manual) D-Dimer Sodium 148 H Potassium 3.4 L Chloride 107.4 H BUN 43 H Creatinine 1.6 H Glucose 226 H POC Glucose Uric Acid 9.8 H Calcium 8.3 L AST Alkaline Phosphatase 197 H C-Reactive Protein Total Protein 5.6 L Albumin 2.5 L TSH Urine WBC (Auto) Urine Creatinine 80.9 H Urine Total Protein 43 H Coronavirus (PCR) 11/28/21 07:28 WBC RBC Hgb Hct MCV MCHC RDW Lymph % (Auto) [place] % (Auto) Lymph # (Auto) Seg Neutrophils % Seg Neuts % (Manual) Lymphocytes % (Manual) Monocytes % (Manual) Basophils % (Manual) Seg Neutrophils # Lymphocytes # (Manual) Basophils # (Manual) D-Dimer Sodium Potassium Chloride BUN Creatinine Glucose POC Glucose 192 H Uric Acid Calcium AST Alkaline Phosphatase C-Reactive Protein Total Protein Albumin TSH Urine WBC (Auto) Urine Creatinine Urine Total Protein Coronavirus (PCR)
--- NOTE | 2021-11-28 09:31 | Progress Note ---
Assessment and Plan Impression * Acute kidney injury * Mild hyponatremia * Severe COVID-19 pneumonia * Encephalopathy * Anemia * Malnutrition * Cardiomyopathy. Ejection fraction approximately 35% * Urinary tract infection. Klebsiella pneumonia Recommendations His renal function is slowly improving. Baseline creatinine approximately 1.3 He is also currently nonoliguric His urine does not show any dipstick blood or protein Fractional excretion of sodium is approximately 0.5% Continue to hold MIREYA inhibitor/ARB at this time Encourage free water intake Follow-up results of renal ultrasound Treatment of COVID-19 Pneumonia and UTI as per ID and primary team His blood pressure is adequately controlled Monitor fluid status and electrolytes closely Avoid nephrotoxins Subjective Date of service: 11/28/21 Principal diagnosis: Acute encephalopathy Interval history: Patient is currently on high flow oxygen with 50% FiO2. Somewhat lethargic. Not answering questions. Objective - Vital Signs Vital signs: Vital Signs - 12hr 11/28/21 02:00 O2 Sat by Pulse 99 Oximetry - General Appearance General appearance: well-developed, well-nourished, appears stated age EENT: PERRL, mucous membranes moist Neck: no JVD, no thyromegaly, no carotid bruit, supple Respiratory: Present: Ronchi (Few scattered rhonchi) Cardiology: regular Gastrointestinal: normal, normoactive bowel sounds Integumentary: other (No edema) - Lab 11/27/21 05:17 11/28/21 06:47 Most recent lab results Calcium 8.3 mg/dL (8.4-10.2) L 11/28/21 06:47 Urine Creatinine 80.9 mg/dL (0.1-20.0) H 11/27/21 Unknown Urine Sodium 36 mmol/L 11/27/21 Unknown Urine Total Protein 43 mg/dL (5-11.8) H 11/27/21 Unknown Medications & Allergies - Medications Allergies/Adverse Reactions: Allergies No Known Allergies Allergy (Verified 11/22/21 05:55) Home Medications: Home Medications Medication Instructions Recorded Confirmed Last Taken Type Furosemide [Lasix TAB] 80 mg PO TID 11/24/21 11/24/21 Unknown History Gabapentin [Neurontin] 300 mg PO BID 11/24/21 11/27/21 11/19/21 09:12 History 300 mg Sacubitril/Valsartan [Entresto 1 tab PO BID 11/24/21 11/27/2121 09:12 History 49-51 mg] 1 tab Spironolactone [Aldactone] 25 mg PO QDAY 11/24/21 11/27/21 11/19/21 09:12 History 25 mg Tamsulosin [Flomax] 0.4 mg PO QDAY 11/24/21 11/27/21 11/18/21 22:02 History 0.4 mg carvediloL [Coreg] 6.25 mg PO BID 11/24/21 11/27/21 11/19/21 09:12 History 6.25mg AtorvaSTATin [Lipitor] 40 mg PO QHS 11/27/21 11/27/21 11/19/21 09:12 History 40 mg Insulin Glargine,Hum.rec.anlog 12 unit SQ QHS 11/27/21 11/27/21 11/18/21 22:02 History [Lantus Solostar] 12 units Insulin Lispro [Admelog] 1 - 12 unit SQ TIDAC 11/27/21 11/27/21 11/19/21 08:32 History 6 units Insulin Lispro [Admelog] 4 unit SQ TID 11/27/21 11/27/21 11/19/21 08:33 History 4 units oxyCODONE /ACETAMINOPHEN [Percocet 1 tab PO Q6HR PRN 11/27/21 11/27/21 11/19/21 03:57 History 5/325] 1 tab Active Medications: Generic Name Dose Route Start Last Admin Trade Name Freq PRN Reason Stop Dose Admin Acetaminophen 650 mg 11/22/21 05:48 Acetaminophen 325 Mg Tab PO Q4H PRN Pain MILD(1-3)/Fever >100.5/BRODY Albuterol 2.5 mg 11/25/21 12:00 Albuterol 2.5 Mg/3 Ml Nebu IH Q4HRT PRN Shortness Of Breath Dexamethasone 6 mg 11/26/21 12:00 11/27/21 10:04 Dexamethasone 4 Mg/Ml Vial IV 12/05/21 10:01 6 mg Q24HR NANDINI Administration Dextrose 50 ml 11/22/21 05:48 Dextrose 50% In Water (25gm) 50 Ml Syringe IV Q30MIN PRN Hypoglycemia Protocol Docusate Sodium 100 mg 11/25/21 22:00 11/27/21 21:15 Docusate Sodium 100 Mg Cap PO 100 mg BID NANDINI Administration Enoxaparin Sodium 70 mg 11/26/21 12:30 11/27/21 21:15 Enoxaparin 80 Mg/0.8 Ml Inj SUB-Q 70 mg Q12HR NANDINI Administration Hydralazine HCl 10 mg 11/22/21 05:58 Hydralazine 20 Mg/1 Ml Inj IV Q6H PRN Blood Pressure Hydromorphone HCl 0.5 mg 11/22/21 05:48 11/23/21 06:02 Hydromorphone 1 Mg/1 Ml Inj IV 0.5 mg Q3H PRN Administration Pain , Severe (7-10) Sodium Chloride 1,000 mls @ 100 mls/hr 11/22/21 06:00 11/26/21 22:47 Nacl 0.45% 1000 Ml IV 100 mls/hr DIRECT NANDINI Administration REMDESIVIR 100 mg/ Sodium 250 mls @ 500 mls/hr 11/26/21 21:00 11/27/21 21:15 Chloride IV 11/29/21 21:29 500 mls/hr Q24HR@2100 NANDINI Administration Insulin Human Lispro 0 unit 11/22/21 07:30 11/27/21 21:15 Insulin Lispro 100 Unit/Ml SUB-Q Not Given [facility] Protocol Morphine Sulfate 2 mg 11/22/21 05:48 11/22/21 22:43 Morphine 2 Mg/1 Ml Inj IV 2 mg Q4H PRN Administration Pain, Moderate (4-6) Ondansetron HCl 4 mg 11/22/21 05:48 Ondansetron 4 Mg/2 Ml Inj IV Q8H PRN Nausea And Vomiting Sodium Chloride 10 ml 11/22/21 10:00 11/27/21 21:16 Sodium Chloride 0.9% 10 Ml Flush Syringe IV 10 ml BID NANDINI Administration Sodium Chloride 10 ml 11/22/21 05:48 Sodium Chloride 0.9% 10 Ml Flush Syringe IV PRN PRN LINE FLUSH Sodium Chloride 50 ml 11/26/21 01:45 11/27/21 21:15 Sodium Chloride 0.9% 50 Ml Ivpb IV 11/29/21 21:01 50 ml Q24HR@2100 NANDINI Administration
[2021-11-28] MEDS: ENOXAPARIN 80 MG/0.8 ML INJ SUB-Q SCH ×2 (09:44→22:51)
[2021-11-28] MEDS: DOCUSATE SODIUM 100 MG CAP PO SCH ×2 (09:44→22:53)
[2021-11-28] MEDS: dexAMETHasone 4 MG/ML VIAL IV SCH (09:44)
[2021-11-28] MEDS: INSULIN LISPRO 100 UNIT/ML SUB-Q SCH ×4 (09:45→22:53)
--- NOTE | 2021-11-28 10:15 | Progress Note ---
Assessment and Plan Assessment and plan: 81-year-old male with past medical history of hypertension and diabetes was brought to the emergency room in by family due to altered mental status/confusion. Patient discharged from [facility] 2 days ago and has been confused since then. The did not know why he was in the hospital to begin with. Allegedly, before he went to the hospital he was able to have a cogent conversation and was ambulatory. Now, apparently he cannot support his own weight. He is confused and cannot carry a cogent conversation. Labs revealed several mild abnormalities including ROSANA with mildly elevated creatinine and hypokalemia with potassium of 3.2. There is no leukocytosis or anemia. Urinalysis shows UTI. Initial CT scan of the head shows no acute intracranial abnormality November 24, 20192019 More alert and oriented Unable to give history Discussed with family and daughter They want long-term care 11/25: Patient seen and examined this morning noted on high flow oxygen unsure when she became toxic. Nevertheless pulmonary and ID consult patient started on steroid therapy. Will likely need remdesivir if renal function continues to show improvement We will also give Fleet enema just no documented bowel movement at this time. On CT imaging shows a large fecal material in the rectum. Called and updated Cade Pena, daughter, 11/26: Patient remains hypoxic and on high flow was weaned down to 90% at 35L discussed with nursing staff to inform respiratory therapist saturation was 96% we will continue to monitor. Will change to full dose anticoagulation at this time I am unable to get a CTA of the chest due to acute kidney injury. We will give gentle hydration as chest examination revealed clear auscultation sounds bilaterally. ID input noted continue steroids remdesivir initiated. Mild UTI noted, patient had been treated with ceftriaxone. Continue to monitor mental status for improvement CT of the head was negative. Discussed with nursing staff patient did have 2 large bowel movements yesterday. Altered mental status remains a mystery I will try to obtain records from [place] to further understand why the patient was in the hospital other place at the time 11/27: Patient seen and examined, improving some, continue current management with steroids and recently initiated remdesivir. Dip Brazier consulted to assist us with renal function wean oxygen as tolerated. still some confusion, Called the daughter to get Clarification on the discussion with the nursing about ventilator. it was a very contentious discussion as she did not want to address the issue "stating I do not want to put that on the universe" someone else got on the phone and had discussion with the daughter including asking why he left the other hospital finally the all agreed that God forbid "something happen- you have to revive him" 11/28: Patient shows some clinical improvement with oxygen demand is down to 60% FiO2 we will see if we can wean him any further today. Possibly be able to discharge in 24 to 48 hours but will likely need 2 to 4 L of oxygen nasal cannula on discharge otherwise continue current management. Renal function is stable. Beta-tee still on hold due to bradycardia. # Acute metabolic encephalopathy Current Visit: Yes Status: Acute Plan to address problem: Improved Unable to give much history Discussed with daughter Daughters number on case management notes # acute hypoxic respiratory failure secondary to COVID-19 #COVID-19 pneumonia #diabetes Plan to address problem: Blood sugar coverage Long-acting insulin started at 10 units # High blood pressure Current Visit: Yes Status: Acute Plan to address problem: Hydralazine 10 mg IV every 6 hours as needed. We will monitor the blood pressure closely # ROSANA (acute kidney injury) secondary to vasomotor nephropathy Current Visit: Yes Status: Acute Plan to address problem: Improved # Hypokalemia Current Visit: Yes Status: Acute Plan to address problem: Supplemented # Urinary tract infection Current Visit: Yes Status: Acute Plan to address problem: Rocephin 2 g IV daily. We do the blood culture urine culture. # Constipation #Acute cystitis #DVT prophylaxis Current Visit: Yes Status: Acute Plan to address problem: Heparin 5000 units subcu every 8 hours for DVT prophylaxis. Pepcid 20 mg p.o. twice daily for GI prophylaxis. Patient is a full code # severe debility Physical therapy and Occupational Therapy tomorrow Discharge planning issues Daughter wants long-term care Discussed with daughter Cade Pena, daughter, . Per daughter patient lives with his spouse Tatyana Pena [phone] C, [phone] H. They are not legally ; she is the only child for her mother Daughter stated she will be the one making decision for her father, his spouse verbalized not able to care for him at home, she is considering intermediate History Interval history: Patient seen and examined today remains on high flow oxygen sometimes he takes it off and desats to the 70s but when he has it on he is still 96% he is on 25 L flow and 60% oxygen FiO2 Hospitalist Physical - Physical exam Narrative exam: General appearance: Present: no acute distress, well-nourished - EENT Eyes: PERRL, EOM intact ENT: hearing intact, clear oral mucosa Ears: bilateral: normal - Neck Neck: supple, normal ROM - Respiratory Respiratory effort: normal Respiratory: bilateral: CTA - Breasts Breasts: normal - Cardiovascular Heart rate: 78 Rhythm: regular Heart Sounds: Present: S1 & S2. Absent: gallop, rub Extremities: pulses intact, No edema, normal color, Full ROM - Gastrointestinal General gastrointestinal: Present: soft, non-tender, non-distended, normal bowel sounds - Genitourinary Male genitourinary: normal - Integumentary Integumentary: clear, warm, dry - Musculoskeletal Musculoskeletal: generalized weakness - Neurologic Neurologic: moves all extremities, other (Alert somewhat improved but not oriented) placed on restraints - Psychiatric Psychiatric: other (Alert but not oriented) - Constitutional Vitals: Temp Pulse Resp BP Pulse Ox 98.0 F 59 L 20 132/68 99 11/27/21 17:35 11/27/21 21:13 11/27/21 17:35 11/27/21 21:13 11/28/21 02:00 General appearance: Present: no acute distress, well-nourished Results - Labs CBC & Chem 7: 11/27/21 05:17 11/28/21 06:47 Labs: Laboratory Last Values WBC 14.0 K/mm3 (4.5-11.0) H 11/27/21 05:17 RBC 3.12 M/mm3 (3.65-5.03) L 11/27/21 05:17 Hgb 9.1 gm/dl (11.8-15.2) L 11/27/21 05:17 Hct 29.3 % (35.5-45.6) L 11/27/21 05:17 MCV 94 fl (84-94) 11/27/21 05:17 MCH 29 pg (28-32) 11/27/21 05:17 MCHC 31 % (32-34) L 11/27/21 05:17 RDW 15.1 % (13.2-15.2) 11/27/21 05:17 Plt Count 327 K/mm3 (140-440) 11/27/21 05:17 Lymph % (Auto) 10.5 % (13.4-35.0) L 11/25/21 05:27 [place] % (Auto) 6.8 % (0.0-7.3) 11/25/21 05:27 Eos % (Auto) 0.2 % (0.0-4.3) 11/25/21 05:27 Baso % (Auto) 0.5 % (0.0-1.8) 11/25/21 05:27 Lymph # (Auto) 1.1 K/mm3 (1.2-5.4) L 11/25/21 05:27 Henderson # (Auto) 0.7 K/mm3 (0.0-0.8) 11/25/21 05:27 Eos # (Auto) 0.0 K/mm3 (0.0-0.4) 11/25/21 05:27 Baso # (Auto) 0.1 K/mm3 (0.0-0.1) 11/25/21 05:27 Add Manual Diff Complete 11/21/21 19:36 Total Counted 100 11/21/21 19:36 Seg Neutrophils % 82.0 % (40.0-70.0) H 11/25/21 05:27 Seg Neuts % (Manual) 79.0 % (40.0-70.0) H 11/21/21 19:36 Lymphocytes % (Manual) 10.0 % (13.4-35.0) L 11/21/21 19:36 Monocytes % (Manual) 8.0 % (0.0-7.3) H 11/21/21 19:36 Basophils % (Manual) 3.0 % (0.0-1.8) H 11/21/21 19:36 Nucleated RBC % Not Reportable 11/21/21 19:36 Seg Neutrophils # 8.7 K/mm3 (1.8-7.7) H 11/25/21 05:27 Seg Neutrophils # Man 5.3 K/mm3 (1.8-7.7) 11/21/21 19:36 Band Neutrophils # 0.0 K/mm3 11/21/21 19:36 Lymphocytes # (Manual) 0.7 K/mm3 (1.2-5.4) L 11/21/21 19:36 Abs React Lymphs (Man) 0.0 K/mm3 11/21/21 19:36 Monocytes # (Manual) 0.5 K/mm3 (0.0-0.8) 11/21/21 19:36 Eosinophils # (Manual) 0.0 K/mm3 (0.0-0.4) 11/21/21 19:36 Basophils # (Manual) 0.2 K/mm3 (0.0-0.1) H 11/21/21 19:36 Metamyelocytes # 0.0 K/mm3 11/21/21 19:36 Myelocytes # 0.0 K/mm3 11/21/21 19:36 Promyelocytes # 0.0 K/mm3 11/21/21 19:36 Blast Cells # 0.0 K/mm3 11/21/21 19:36 WBC Morphology Not Reportable 11/21/21 19:36 Hypersegmented Neuts Not Reportable 11/21/21 19:36 Hyposegmented Neuts Not Reportable 11/21/21 19:36 Hypogranular Neuts Not Reportable 11/21/21 19:36 Smudge Cells Not Reportable 11/21/21 19:36 Toxic Granulation Not Reportable 11/21/21 19:36 Toxic Vacuolation Not Reportable 11/21/21 19:36 Dohle Bodies Not Reportable 11/21/21 19:36 Pelger-Huet Anomaly Not Reportable 11/21/21 19:36 Luan Rods Not Reportable 11/21/21 19:36 Platelet Estimate Consistent w auto 11/21/21 19:36 Clumped Platelets Not Reportable 11/21/21 19:36 Plt Clumps, EDTA Not Reportable 11/21/21 19:36 Large Platelets Not Reportable 11/21/21 19:36 Giant Platelets Not Reportable 11/21/21 19:36 Platelet Satelliting Not Reportable 11/21/21 19:36 Plt Morphology Comment Not Reportable 11/21/21 19:36 RBC Morphology Normal 11/21/21 19:36 Dimorphic RBCs Not Reportable 11/21/21 19:36 Polychromasia Not Reportable 11/21/21 19:36 Hypochromasia Not Reportable 11/21/21 19:36 Poikilocytosis Not Reportable 11/21/21 19:36 Anisocytosis Not Reportable 11/21/21 19:36 Microcytosis Not Reportable 11/21/21 19:36 Macrocytosis Not Reportable 11/21/21 19:36 Spherocytes Not Reportable 11/21/21 19:36 Pappenheimer Bodies Not Reportable 11/21/21 19:36 Sickle Cells Not Reportable 11/21/21 19:36 Target Cells Not Reportable 11/21/21 19:36 Tear Drop Cells Not Reportable 11/21/21 19:36 Ovalocytes Not Reportable 11/21/21 19:36 Helmet Cells Not Reportable 11/21/21 19:36 Christie-Tavares Bodies Not Reportable 11/21/21 19:36 [place] Rings Not Reportable 11/21/21 19:36 [place] Cells Not Reportable 11/21/21 19:36 Bite Cells Not Reportable 11/21/21 19:36 Crenated Cell Not Reportable 11/21/21 19:36 Elliptocytes Not Reportable 11/21/21 19:36 Acanthocytes (Spur) Not Reportable 11/21/21 19:36 Rouleaux Not Reportable 11/21/21 19:36 Hemoglobin C Crystals Not Reportable 11/21/21 19:36 Schistocytes Not Reportable 11/21/21 19:36 Malaria parasites Not Reportable 11/21/21 19:36 Kalia Bodies Not Reportable 11/21/21 19:36 Hem Pathologist Commnt No 11/21/21 19:36 D-Dimer 1279.46 ng/mlDDU (0-234) H 11/26/21 16:44 Sodium 148 mmol/L (137-145) H 11/28/21 06:47 Potassium 3.4 mmol/L (3.6-5.0) L 11/28/21 06:47 Chloride 107.4 mmol/L (98-107) H 11/28/21 06:47 Carbon Dioxide 23 mmol/L (22-30) 11/28/21 06:47 Anion Gap 21 mmol/L 11/28/21 06:47 BUN 43 mg/dL (9-20) H 11/28/21 06:47 Creatinine 1.6 mg/dL (0.8-1.3) H 11/28/21 06:47 Estimated GFR 50 ml/min 11/28/21 06:47 BUN/Creatinine Ratio 27 % 11/28/21 06:47 Glucose 226 mg/dL (75-100) H 11/28/21 06:47 POC Glucose 192 mg/dL (70-105) H 11/28/21 07:28 Osmolality 316 Mosm/kg 11/27/21 Unknown Uric Acid 9.8 mg/dL (3.5-7.6) H 11/27/21 Unknown Calcium 8.3 mg/dL (8.4-10.2) L 11/28/21 06:47 Total Bilirubin 0.40 mg/dL (0.1-1.2) 11/28/21 06:47 AST 22 units/L (5-40) 11/28/21 06:47 ALT 28 units/L (7-56) 11/28/21 06:47 Alkaline Phosphatase 197 units/L (35-129) H 11/28/21 06:47 Ammonia 26.0 umol/L (25-60) 11/21/21 19:37 C-Reactive Protein 13.00 mg/dL (0.00-1.30) H 11/27/21 05:17 Total Protein 5.6 g/dL (6.3-8.2) L 11/28/21 06:47 Albumin 2.5 g/dL (3.9-5) L 11/28/21 06:47 Albumin/Globulin Ratio 0.8 % 11/28/21 06:47 TSH 4.800 mlU/mL (0.270-4.200) H 11/21/21 19:37 Urine Color Kimberli (Yellow) 11/27/21 Unknown Urine Turbidity Slightly-cloudy (Clear) 11/27/21 Unknown Urine pH 5.0 (5.0-7.0) 11/27/21 Unknown Ur Specific [place] 1.013 (1.003-1.030) 11/27/21 Unknown Urine Protein <15 mg/dl mg/dL (Negative) 11/27/21 Unknown Urine Glucose (UA) 50 mg/dL (Negative) 11/27/21 Unknown Urine Ketones Tr mg/dL (Negative) 11/27/21 Unknown Urine Blood Neg (Negative) 11/27/21 Unknown Urine Nitrite Neg (Negative) 11/27/21 Unknown Urine Bilirubin Neg (Negative) 11/27/21 Unknown Urine Urobilinogen < 2.0 mg/dL (<2.0) 11/27/21 Unknown Ur Leukocyte Esterase Neg (Negative) 11/27/21 Unknown Urine WBC (Auto) 13.0 /HPF (0.0-6.0) H 11/27/21 Unknown Urine RBC (Auto) 2.0 /HPF (0.0-6.0) 11/27/21 Unknown U Epithel Cells (Auto) 1.0 /HPF (0-13.0) 11/27/21 Unknown Urine Bacteria (Auto) 1+ /HPF (Negative) 11/27/21 Unknown Urine Mucus Few /HPF 11/27/21 Unknown Urine Yeast (Budding) 2+ /HPF 11/27/21 Unknown Urine Creatinine 80.9 mg/dL (0.1-20.0) H 11/27/21 Unknown Urine Sodium 36 mmol/L 11/27/21 Unknown Urine Total Protein 43 mg/dL (5-11.8) H 11/27/21 Unknown Coronavirus (PCR) Positive (Negative) A 11/23/21 Unknown Microbiology: Microbiology 11/22/21 06:06 Peripheral/Venous Blood Culture - Final NO GROWTH AFTER 5 DAYS 11/22/21 05:49 Peripheral/Venous Blood Culture - Final NO GROWTH AFTER 5 DAYS Fritz/IV: Voiding Method Condom Catheter Active Medications - Current Medications Current Medications: Generic Name Dose Route Start Last Admin Trade Name Freq PRN Reason Stop Dose Admin Acetaminophen 650 mg 11/22/21 05:48 Acetaminophen 325 Mg Tab PO Q4H PRN Pain MILD(1-3)/Fever >100.5/BRODY Albuterol 2.5 mg 11/25/21 12:00 Albuterol 2.5 Mg/3 Ml Nebu IH Q4HRT PRN Shortness Of Breath Dexamethasone 6 mg 11/26/21 12:00 11/28/21 09:44 Dexamethasone 4 Mg/Ml Vial IV 12/05/21 10:01 6 mg Q24HR NANDINI Administration Dextrose 50 ml 11/22/21 05:48 Dextrose 50% In Water (25gm) 50 Ml Syringe IV Q30MIN PRN Hypoglycemia Protocol Docusate Sodium 100 mg 11/25/21 22:00 11/28/21 09:44 Docusate Sodium 100 Mg Cap PO 100 mg BID NANDINI Administration Enoxaparin Sodium 70 mg 11/26/21 12:30 11/28/21 09:44 Enoxaparin 80 Mg/0.8 Ml Inj SUB-Q 70 mg Q12HR NANDINI Administration Hydralazine HCl 10 mg 11/22/21 05:58 Hydralazine 20 Mg/1 Ml Inj IV Q6H PRN Blood Pressure Hydromorphone HCl 0.5 mg 11/22/21 05:48 11/23/21 06:02 Hydromorphone 1 Mg/1 Ml Inj IV 0.5 mg Q3H PRN Administration Pain , Severe (7-10) Sodium Chloride 1,000 mls @ 100 mls/hr 11/22/21 06:00 11/26/21 22:47 Nacl 0.45% 1000 Ml IV 100 mls/hr DIRECT NANDINI Administration REMDESIVIR 100 mg/ Sodium 250 mls @ 500 mls/hr 11/26/21 21:00 11/27/21 21:15 Chloride IV 11/29/21 21:29 500 mls/hr Q24HR@2100 NANDINI Administration Insulin Human Lispro 0 unit 11/22/21 07:30 11/28/21 09:45 Insulin Lispro 100 Unit/Ml SUB-Q 2 unit ACHS NANDINI Administration Protocol Morphine Sulfate 2 mg 11/22/21 05:48 11/22/21 22:43 Morphine 2 Mg/1 Ml Inj IV 2 mg Q4H PRN Administration Pain, Moderate (4-6) Ondansetron HCl 4 mg 11/22/21 05:48 Ondansetron 4 Mg/2 Ml Inj IV Q8H PRN Nausea And Vomiting Sodium Chloride 10 ml 11/22/21 10:00 11/28/21 09:45 Sodium Chloride 0.9% 10 Ml Flush Syringe IV 10 ml BID NANDINI Administration Sodium Chloride 10 ml 11/22/21 05:48 Sodium Chloride 0.9% 10 Ml Flush Syringe IV PRN PRN LINE FLUSH Sodium Chloride 50 ml 11/26/21 01:45 11/27/21 21:15 Sodium Chloride 0.9% 50 Ml Ivpb IV 11/29/21 21:01 50 ml Q24HR@2100 NANDINI Administration Nutrition/Malnutrition Assess - Dietary Evaluation Nutrition/Malnutrition Findings: Nutrition Notes Start: 11/22/21 14:16 Freq: Status: Active Protocol: Document 11/27/21 09:32 NICKO (Rec: 11/27/21 09:53 NICKO [id number]) Nutrition Notes Initial or Follow up Brief Note Current Diet Cardiac Consistent Carbohydrates Diet (since B ), D Suppl (L 11/27). Height 5 ft 11 in Weight 68.8 kg [place] Body Weight (kg) 78.18 BMI 21.1 Weight change and time frame 5.3 Kg body weight gain in 5 days reported. Weight Status Underweight Subjective/Other Information RD consult for routine F/U on %PO intake of meals and ONS. No report available on %PO intake of meals at the time, last from 11/23, was at 50%. Increase Dietary Supplements to TID. Change to Glucerna to support Diabetes control. ROSANA is improving, according to Progress notes. Percent of energy/protein needs met: Prescribed Cardiac/Consistent Carbohydrates Diet provides for energy/protein needs (1, 977 Kcal/86 g) during LOS; additionally, Dietary Supplements will compensate for possible Poor PO intake of meals with 660 Kcal and 30 g of protein. Current % PO Fair (50-74%) #1 Nutrition Diagnosis Underweight Diagnosis Progress(for reassessment Continues documentation) Nutrition Intervention Change Diet Order: Continue Cardiac Consistent Carbohydrates Diet. Add Supplement/Snack (indicate name/kcal 8 fl oz Glucerna; TID /protein ) Provides kCal: 660 Provides Protein (gm) 30 Goal #1 Compensate, through dietary supplementation, for possible poor or insufficient PO intake of meals during LOS. Follow-Up By: 12/04/21 Additional Comments Continue monitoring food tolerance, %PO intake of meals , and BM.
--- NOTE | 2021-11-28 11:31 | Progress Note ---
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 Currently anticoagulated on Lovenox COPD DM Echo 11/27/2021- EF 40 to 45%, mild global hypokinesis of left ventricle. Right ventricular systolic function is normal. Mild aortic regurgitation. Trace tricuspid and pulmonic regurgitation Echo 12/01/2020- LVEF 35 - 40%. LV systolic function is moderately decreased,Grade I (mild) diastolic dysfunction. There were technical limitations during this study due to patient positioning and patient body habitus. Poor views unable to evaluate any of the valves PET Stress 01/31/2021- Abnormal pharmacological PET stress test. There is a small sized mild to moderate intensity partially reversible perfusion defect seen in the apical inferior wall consistent with infarct/scar and a small amount of ischemia. SSS 3, SRS 1, SDS 2. TID 0.84(normal).Severely depressed resting LV systolic function with a calculated LVEF 22% at rest which increased to 29% with peak stress. Global LV hypokinesis. Coronary calcifications were not seen by chest CT, however CT for attenuation correction is not sensitive. Stress ECG was negative for ischemia. No symptoms of chest pain with vasodilator stress Outpatient medications: Coreg 6.25 mg p.o. twice daily atorvastatin 40 mg p.o. nightly, spironolactone 25 mg p.o. daily, Entresto 49-51 mg p.o. twice daily, Lasix 80 mg p.o. 3 times daily Plan: EKG shows sinus bradycardia 50 with no acute ischemic changes Per documentation patient has a history of A. fib unclear as to why patient is not on anticoagulation as an outpatient. However patient is currently anticoagulated on Lovenox Patient remains sinus bradycardia 40 to 50s on monitor Due to bradycardia will continue to hold beta-blockers No MIREYA or ARB due to elevated creatinine. No diuretics per nephrology recs Will hold statin therapy due to elevated liver enzymes Patient seen in conjunction with Dr. Schaefer who agrees with this plan of care - Patient Problems (1) Sinus bradycardia Current Visit: Yes Status: Acute (2) COVID-19 Current Visit: Yes Status: Acute (3) ROSANA (acute kidney injury) Current Visit: Yes Status: Acute (4) Acute metabolic encephalopathy Current Visit: Yes Status: Acute (5) Metabolic encephalopathy Current Visit: Yes Status: Acute Subjective Date of service: 11/28/21 Principal diagnosis: Acute encephalopathy, COVID-19 Interval history: Patient sitting in bed on high flow NC. Patient remains altered Sinus bradycardia rate trending in upper 40s to 50s Objective Vital Signs Temp Pulse Resp BP Pulse Ox 11/28/21 08:00 100 11/28/21 02:00 99 11/27/21 21:13 59 L 132/68 97 11/27/21 20:02 85 11/27/21 19:24 98 11/27/21 17:43 96 11/27/21 17:35 98.0 F 20 111/57 11/27/21 14:00 84 - Physical Examination General: Other (AMS) HEENT: Positive: Mucus Membranes Dry Neck: Positive: trachea midline Cardiac: Positive: Regular Rhythm, Bradycardia Lungs: Positive: Decreased Breath Sounds Neuro: Positive: Grossly Intact Abdomen: Positive: Soft Skin: Negative: Rash, Suspicious Lesions, Ulceration Extremities: Present: upper extr. pulses. Absent: edema - Labs and Meds Cardiac Enzymes 11/28/21 Range/Units 06:47 AST 22 (5-40) units/L Comprehensive Metabolic Panel 11/28/21 Range/Units 06:47 Sodium 148 H (137-145) mmol/L Potassium 3.4 L (3.6-5.0) mmol/L Chloride 107.4 H (98-107) mmol/L Carbon Dioxide 23 (22-30) mmol/L BUN 43 H (9-20) mg/dL Creatinine 1.6 H (0.8-1.3) mg/dL Glucose 226 H (75-100) mg/dL Calcium 8.3 L (8.4-10.2) mg/dL AST 22 (5-40) units/L ALT 28 (7-56) units/L Alkaline Phosphatase 197 H (35-129) units/L Total Protein 5.6 L (6.3-8.2) g/dL Albumin 2.5 L (3.9-5) g/dL - Imaging and Cardiology Echo: report reviewed - Telemetry EKG Rhythm: Sinus Bradycardia - EKG Sinus rhythms and dysrhythmias: sinus bradycardia
--- NOTE | 2021-11-28 13:07 | Electrocardiograph Report ---
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
--- NOTE | 2021-11-28 13:15 | Progress Note ---
Assessment and Plan Cultures: Blood culture no growth so far Urine culture no growth so far A/P:81-year-old man past medical history hypertension, diabetes #Severe COVID-19 pneumonia: Patient presented with a week of symptoms, chest x- ray with diffuse bilateral infiltrates, admission O2 sats on room air. Inflammatory markers elevated #Acute hypoxemic respiratory failure: Likely secondary to COVID-19 infection. Currently on high flow nasal cannula 25 L/min #Diabetes: tight glycemic control for best outcomes. #Altered mental status: Attempting to remove oxygen #Fecal impaction Recommendations: -Steroids for 10 days -Remdesivir x5 days. -Actemra administered 11/27/2021 -Obtain q48-72h inflammatory markers - ferritin, Ddimer, CRP, LDH -Completed 5 days ceftriaxone here. -Anticoagulation per hospital protocol -Proning as able Thank you for the consult, we will continue to follow. Dr. Hoang taking over Wednesday. Rand Aguiar MD [facility] ([facility]) O: [phone] F: [phone] Subjective Date of service: 11/28/21 Principal diagnosis: Acute encephalopathy, COVID-19 Interval history: Afebrile, no acute change. On high flow nasal cannula. Was given Actemra yesterday. Objective - Exam Narrative Exam: Physical exam deferred to reduce risk of transmission of COVID-19. Please refer to primary team's note. - Constitutional Vitals: Vital Signs Temp Pulse Resp BP Pulse Ox 98.7 F 54 L 24 128/77 97 11/28/21 11:54 11/28/21 11:54 11/28/21 11:54 11/28/21 11:54 11/28/21 11:54 Temperature -Last 24 Hours Temperature 98.7 F Temperature 98.0 F - Labs CBC & Chem 7: 11/27/21 05:17 11/28/21 06:47 Labs: Abnormal lab results 11/27/21 11/27/21 11/27/21 Range/Units 17:35 21:12 Unknown Sodium (137-145) mmol/L Potassium (3.6-5.0) mmol/L Chloride (98-107) mmol/L BUN (9-20) mg/dL Creatinine (0.8-1.3) mg/dL Glucose (75-100) mg/dL POC Glucose 144 H 127 H (70-105) mg/dL Calcium (8.4-10.2) mg/dL Alkaline Phosphatase (35-129) units/L Total Protein (6.3-8.2) g/dL Albumin (3.9-5) g/dL Urine WBC (Auto) 13.0 H (0.0-6.0) /HPF Urine Creatinine (0.1-20.0) mg/dL Urine Total Protein (5-11.8) mg/dL 11/27/21 11/28/21 11/28/21 Range/Units Unknown 06:47 07:28 Sodium 148 H (137-145) mmol/L Potassium 3.4 L (3.6-5.0) mmol/L Chloride 107.4 H (98-107) mmol/L BUN 43 H (9-20) mg/dL Creatinine 1.6 H (0.8-1.3) mg/dL Glucose 226 H (75-100) mg/dL POC Glucose 192 H (70-105) mg/dL Calcium 8.3 L (8.4-10.2) mg/dL Alkaline Phosphatase 197 H (35-129) units/L Total Protein 5.6 L (6.3-8.2) g/dL Albumin 2.5 L (3.9-5) g/dL Urine WBC (Auto) (0.0-6.0) /HPF Urine Creatinine 80.9 H (0.1-20.0) mg/dL Urine Total Protein 43 H (5-11.8) mg/dL 11/28/21 Range/Units 11:52 Sodium (137-145) mmol/L Potassium (3.6-5.0) mmol/L Chloride (98-107) mmol/L BUN (9-20) mg/dL Creatinine (0.8-1.3) mg/dL Glucose (75-100) mg/dL POC Glucose 210 H (70-105) mg/dL Calcium (8.4-10.2) mg/dL Alkaline Phosphatase (35-129) units/L Total Protein (6.3-8.2) g/dL Albumin (3.9-5) g/dL Urine WBC (Auto) (0.0-6.0) /HPF Urine Creatinine (0.1-20.0) mg/dL Urine Total Protein (5-11.8) mg/dL
[2021-11-28] MEDS: REMDESIVIR 100 MG in SODIUM CHLORIDE 0.9% 250ML 250 ML IV SCH (22:52)
[2021-11-28] MEDS: SODIUM CHLORIDE 0.9% 50 ML IVPB IV SCH (22:53)
[2021-11-29 06:07] LABS: Hematocrit 31.5 % (35.5-45.6); Hemoglobin 9.9 gm/dl (11.8-15.2); Mean Corpuscular HGB Conc 32 % (32-34); Mean Corpuscular Volume 95 fl (84-94); Platelet Count 323 K/mm3 (140-440); Red Blood Count 3.31 M/mm3 (3.65-5.03); Red Cell Distribution Width 15.5 % (13.2-15.2)
[2021-11-29 06:47] LABS: Calcium 8.5 mg/dL (8.4-10.2)
[2021-11-29] MEDS: INSULIN LISPRO 100 UNIT/ML SUB-Q SCH ×4 (07:30→22:06)
[2021-11-29] MEDS: POTASSIUM CHLORIDE 10 MEQ 10 MEQ/100 ML BAG IV SCH ×2 (08:00→09:00)
--- NOTE | 2021-11-29 09:27 | Progress Note ---
Assessment and Plan - Patient Problems (1) Acute respiratory disease due to COVID-19 virus Current Visit: Yes Status: Acute (2) Acute metabolic encephalopathy Current Visit: Yes Status: Acute (3) COVID-19 Current Visit: Yes Status: Acute (4) Diabetes Current Visit: Yes Status: Acute (5) High blood pressure Current Visit: Yes Status: Acute (6) Urinary tract infection Current Visit: Yes Status: Acute Subjective Principal diagnosis: Acute encephalopathy Interval history: awake, confused Objective Vital Signs - 12hr 11/28/21 11/28/21 11/28/21 22:00 23:06 23:14 Temperature 97.7 F Pulse Rate 60 Pulse Rate [ 60 Apical] Respiratory 18 18 Rate Blood Pressure 128/69 O2 Sat by Pulse 97 99 95 Oximetry 11/29/21 11/29/21 11/29/21 01:54 03:20 05:56 Temperature 97.8 F Pulse Rate Pulse Rate [ Apical] Respiratory 18 Rate Blood Pressure 118/57 119/57 O2 Sat by Pulse 95 46 L Oximetry Constitutional: no acute distress, alert Eyes: non-icteric ENT: oropharynx moist Neck: supple Effort: normal Ascultation: Bilateral: diminished breath sounds Cardiovascular: regular rate and rhythm Gastrointestinal: normoactive bowel sounds, soft, non-tender, non-distended CBC and BMP: 11/29/21 05:15 11/29/21 05:15 ABG, PT/INR, D-dimer: PT/INR, D-dimer D-Dimer 1279.46 ng/mlDDU (0-234) H 11/26/21 16:44 Abnormal lab findings: Abnormal Labs 11/21/21 11/21/21 11/21/21 19:36 19:36 19:37 WBC RBC 3.56 L Hgb 10.8 L Hct 34.1 L MCV 96 H MCHC RDW 15.3 H Lymph % (Auto) Cross % (Auto) Lymph # (Auto) Seg Neutrophils % Seg Neuts % (Manual) 79.0 H Lymphocytes % (Manual) 10.0 L Monocytes % (Manual) 8.0 H Basophils % (Manual) 3.0 H Seg Neutrophils # Lymphocytes # (Manual) 0.7 L Basophils # (Manual) 0.2 H D-Dimer Sodium Potassium 3.2 L Chloride BUN 23 H Creatinine 1.4 H Glucose 210 H POC Glucose Uric Acid Calcium 8.2 L AST 45 H Alkaline Phosphatase 133 H Ammonia C-Reactive Protein Total Protein Albumin 3.0 L TSH Urine WBC (Auto) 48.0 H Urine Creatinine Urine Total Protein Coronavirus (PCR) 11/21/21 11/22/21 11/22/21 19:37 11:52 15:52 WBC RBC Hgb Hct MCV MCHC RDW Lymph % (Auto) Cross % (Auto) Lymph # (Auto) Seg Neutrophils % Seg Neuts % (Manual) Lymphocytes % (Manual) Monocytes % (Manual) Basophils % (Manual) Seg Neutrophils # Lymphocytes # (Manual) Basophils # (Manual) D-Dimer Sodium Potassium Chloride BUN Creatinine Glucose POC Glucose 144 H 194 H Uric Acid Calcium AST Alkaline Phosphatase Ammonia C-Reactive Protein Total Protein Albumin TSH 4.800 H Urine WBC (Auto) Urine Creatinine Urine Total Protein Coronavirus (PCR) 11/22/21 11/23/21 11/23/21 20:42 04:48 04:48 WBC RBC 3.22 L Hgb 9.8 L Hct 30.9 L MCV 96 H MCHC RDW Lymph % (Auto) Cross % (Auto) 9.4 H Lymph # (Auto) 1.1 L Seg Neutrophils % 76.5 H Seg Neuts % (Manual) Lymphocytes % (Manual) Monocytes % (Manual) Basophils % (Manual) Seg Neutrophils # Lymphocytes # (Manual) Basophils # (Manual) D-Dimer Sodium Potassium 3.1 L Chloride BUN 24 H Creatinine Glucose 112 H POC Glucose 155 H Uric Acid Calcium 8.1 L AST Alkaline Phosphatase Ammonia C-Reactive Protein Total Protein Albumin TSH Urine WBC (Auto) Urine Creatinine Urine Total Protein Coronavirus (PCR) 11/23/21 11/23/21 11/23/21 08:03 12:24 16:37 WBC RBC Hgb Hct MCV MCHC RDW Lymph % (Auto) Cross % (Auto) Lymph # (Auto) Seg Neutrophils % Seg Neuts % (Manual) Lymphocytes % (Manual) Monocytes % (Manual) Basophils % (Manual) Seg Neutrophils # Lymphocytes # (Manual) Basophils # (Manual) D-Dimer Sodium Potassium Chloride BUN Creatinine Glucose POC Glucose 111 H 106 H 112 H Uric Acid Calcium AST Alkaline Phosphatase Ammonia C-Reactive Protein Total Protein Albumin TSH Urine WBC (Auto) Urine Creatinine Urine Total Protein Coronavirus (PCR) 11/23/21 11/23/21 11/24/21 20:45 Unknown 11:47 WBC RBC Hgb Hct MCV MCHC RDW Lymph % (Auto) Cross % (Auto) Lymph # (Auto) Seg Neutrophils % Seg Neuts % (Manual) Lymphocytes % (Manual) Monocytes % (Manual) Basophils % (Manual) Seg Neutrophils # Lymphocytes # (Manual) Basophils # (Manual) D-Dimer Sodium Potassium Chloride BUN Creatinine Glucose POC Glucose 179 H 142 H Uric Acid Calcium AST Alkaline Phosphatase Ammonia C-Reactive Protein Total Protein Albumin TSH Urine WBC (Auto) Urine Creatinine Urine Total Protein Coronavirus (PCR) Positive A 11/24/21 11/24/21 11/25/21 18:09 20:52 05:27 WBC RBC 3.22 L Hgb 9.6 L Hct 31.1 L MCV 97 H MCHC 31 L RDW 15.6 H Lymph % (Auto) 10.5 L Cross % (Auto) Lymph # (Auto) 1.1 L Seg Neutrophils % 82.0 H Seg Neuts % (Manual) Lymphocytes % (Manual) Monocytes % (Manual) Basophils % (Manual) Seg Neutrophils # 8.7 H Lymphocytes # (Manual) Basophils # (Manual) D-Dimer Sodium Potassium Chloride BUN Creatinine Glucose POC Glucose 107 H 209 H Uric Acid Calcium AST Alkaline Phosphatase Ammonia C-Reactive Protein Total Protein Albumin TSH Urine WBC (Auto) Urine Creatinine Urine Total Protein Coronavirus (PCR) 11/25/21 11/25/21 11/25/21 05:27 05:27 13:43 WBC RBC Hgb Hct MCV MCHC RDW Lymph % (Auto) Cross % (Auto) Lymph # (Auto) Seg Neutrophils % Seg Neuts % (Manual) Lymphocytes % (Manual) Monocytes % (Manual) Basophils % (Manual) Seg Neutrophils # Lymphocytes # (Manual) Basophils # (Manual) D-Dimer Sodium 146 H Potassium Chloride 108.2 H BUN Creatinine Glucose 145 H 191 H POC Glucose Uric Acid Calcium 7.8 L AST 67 H Alkaline Phosphatase Ammonia C-Reactive Protein 25.00 H Total Protein 5.1 L D Albumin 2.5 L TSH Urine WBC (Auto) Urine Creatinine Urine Total Protein Coronavirus (PCR) 11/25/21 11/26/21 11/26/21 18:16 05:00 08:01 WBC RBC Hgb Hct MCV MCHC RDW Lymph % (Auto) Cross % (Auto) Lymph # (Auto) Seg Neutrophils % Seg Neuts % (Manual) Lymphocytes % (Manual) Monocytes % (Manual) Basophils % (Manual) Seg Neutrophils # Lymphocytes # (Manual) Basophils # (Manual) D-Dimer Sodium Potassium Chloride BUN 28 H Creatinine 1.7 H Glucose 236 H POC Glucose 149 H 206 H Uric Acid Calcium 7.8 L AST 51 H Alkaline Phosphatase 233 H Ammonia C-Reactive Protein Total Protein 5.9 L Albumin 2.3 L TSH Urine WBC (Auto) Urine Creatinine Urine Total Protein Coronavirus (PCR) 11/26/21 11/26/21 11/26/21 08:21 11:09 16:37 WBC RBC Hgb Hct MCV MCHC RDW Lymph % (Auto) Cross % (Auto) Lymph # (Auto) Seg Neutrophils % Seg Neuts % (Manual) Lymphocytes % (Manual) Monocytes % (Manual) Basophils % (Manual) Seg Neutrophils # Lymphocytes # (Manual) Basophils # (Manual) D-Dimer Sodium Potassium Chloride BUN 28 H Creatinine 1.5 H Glucose POC Glucose 198 H 154 H Uric Acid Calcium AST Alkaline Phosphatase Ammonia C-Reactive Protein Total Protein Albumin TSH Urine WBC (Auto) Urine Creatinine Urine Total Protein Coronavirus (PCR) 11/26/21 11/26/21 11/27/21 16:44 22:20 05:17 WBC 14.0 H RBC 3.12 L Hgb 9.1 L Hct 29.3 L MCV MCHC 31 L RDW Lymph % (Auto) Cross % (Auto) Lymph # (Auto) Seg Neutrophils % Seg Neuts % (Manual) Lymphocytes % (Manual) Monocytes % (Manual) Basophils % (Manual) Seg Neutrophils # Lymphocytes # (Manual) Basophils # (Manual) D-Dimer 1279.46 H Sodium Potassium Chloride BUN Creatinine Glucose POC Glucose 173 H Uric Acid Calcium AST Alkaline Phosphatase Ammonia C-Reactive Protein Total Protein Albumin TSH Urine WBC (Auto) Urine Creatinine Urine Total Protein Coronavirus (PCR) 11/27/21 11/27/21 11/27/21 05:17 05:17 11:22 WBC RBC Hgb Hct MCV MCHC RDW Lymph % (Auto) Cross % (Auto) Lymph # (Auto) Seg Neutrophils % Seg Neuts % (Manual) Lymphocytes % (Manual) Monocytes % (Manual) Basophils % (Manual) Seg Neutrophils # Lymphocytes # (Manual) Basophils # (Manual) D-Dimer Sodium 147 H Potassium Chloride 107.3 H BUN 37 H Creatinine 1.6 H Glucose 197 H POC Glucose 185 H Uric Acid Calcium 8.1 L AST Alkaline Phosphatase 211 H Ammonia C-Reactive Protein 13.00 H Total Protein 5.6 L Albumin 2.5 L TSH Urine WBC (Auto) Urine Creatinine Urine Total Protein Coronavirus (PCR) 11/27/21 11/27/21 11/27/21 17:35 21:12 Unknown WBC RBC Hgb Hct MCV MCHC RDW Lymph % (Auto) Cross % (Auto) Lymph # (Auto) Seg Neutrophils % Seg Neuts % (Manual) Lymphocytes % (Manual) Monocytes % (Manual) Basophils % (Manual) Seg Neutrophils # Lymphocytes # (Manual) Basophils # (Manual) D-Dimer Sodium Potassium Chloride BUN Creatinine Glucose POC Glucose 144 H 127 H Uric Acid Calcium AST Alkaline Phosphatase Ammonia C-Reactive Protein Total Protein Albumin TSH Urine WBC (Auto) 13.0 H Urine Creatinine Urine Total Protein Coronavirus (PCR) 11/27/21 11/27/21 11/28/21 Unknown Unknown 06:47 WBC RBC Hgb Hct MCV MCHC RDW Lymph % (Auto) Cross % (Auto) Lymph # (Auto) Seg Neutrophils % Seg Neuts % (Manual) Lymphocytes % (Manual) Monocytes % (Manual) Basophils % (Manual) Seg Neutrophils # Lymphocytes # (Manual) Basophils # (Manual) D-Dimer Sodium 148 H Potassium 3.4 L Chloride 107.4 H BUN 43 H Creatinine 1.6 H Glucose 226 H POC Glucose Uric Acid 9.8 H Calcium 8.3 L AST Alkaline Phosphatase 197 H Ammonia C-Reactive Protein Total Protein 5.6 L Albumin 2.5 L TSH Urine WBC (Auto) Urine Creatinine 80.9 H Urine Total Protein 43 H Coronavirus (PCR) 11/28/21 11/28/21 11/28/21 07:28 11:52 12:59 WBC RBC Hgb Hct MCV MCHC RDW Lymph % (Auto) Cross % (Auto) Lymph # (Auto) Seg Neutrophils % Seg Neuts % (Manual) Lymphocytes % (Manual) Monocytes % (Manual) Basophils % (Manual) Seg Neutrophils # Lymphocytes # (Manual) Basophils # (Manual) D-Dimer Sodium Potassium Chloride BUN Creatinine Glucose POC Glucose 192 H 210 H Uric Acid Calcium AST Alkaline Phosphatase Ammonia 12.0 L C-Reactive Protein Total Protein Albumin TSH Urine WBC (Auto) Urine Creatinine Urine Total Protein Coronavirus (PCR) 01/07/22 01/07/22 01/08/22 17:44 22:20 05:15 WBC RBC 3.31 L Hgb 9.9 L Hct 31.5 L MCV 95 H MCHC RDW 15.5 H Lymph % (Auto) Cross % (Auto) Lymph # (Auto) Seg Neutrophils % Seg Neuts % (Manual) Lymphocytes % (Manual) Monocytes % (Manual) Basophils % (Manual) Seg Neutrophils # Lymphocytes # (Manual) Basophils # (Manual) D-Dimer Sodium Potassium Chloride BUN Creatinine Glucose POC Glucose 213 H 163 H Uric Acid Calcium AST Alkaline Phosphatase Ammonia C-Reactive Protein Total Protein Albumin TSH Urine WBC (Auto) Urine Creatinine Urine Total Protein Coronavirus (PCR) 11/29/21 05:15 WBC RBC Hgb Hct MCV MCHC RDW Lymph % (Auto) Cross % (Auto) Lymph # (Auto) Seg Neutrophils % Seg Neuts % (Manual) Lymphocytes % (Manual) Monocytes % (Manual) Basophils % (Manual) Seg Neutrophils # Lymphocytes # (Manual) Basophils # (Manual) D-Dimer Sodium 152 H Potassium 3.2 L Chloride 114.1 H BUN 41 H Creatinine 1.4 H Glucose POC Glucose Uric Acid Calcium AST Alkaline Phosphatase Ammonia C-Reactive Protein Total Protein Albumin TSH Urine WBC (Auto) Urine Creatinine Urine Total Protein Coronavirus (PCR)
[2021-11-29] MEDS: dexAMETHasone 4 MG/ML VIAL IV SCH (09:34)
[2021-11-29] MEDS: DOCUSATE SODIUM 100 MG CAP PO SCH ×2 (09:34→21:38)
[2021-11-29] MEDS: ENOXAPARIN 80 MG/0.8 ML INJ SUB-Q SCH ×2 (09:34→21:36)
--- NOTE | 2021-11-29 09:50 | Progress Note ---
Assessment and Plan Assessment and plan: 81-year-old male with past medical history of hypertension and diabetes was brought to the emergency room in by family due to altered mental status/confusion. Patient discharged from [facility] 2 days ago and has been confused since then. The did not know why he was in the hospital to begin with. Allegedly, before he went to the hospital he was able to have a cogent conversation and was ambulatory. Now, apparently he cannot support his own weight. He is confused and cannot carry a cogent conversation. Labs revealed several mild abnormalities including ROSANA with mildly elevated creatinine and hypokalemia with potassium of 3.2. There is no leukocytosis or anemia. Urinalysis shows UTI. Initial CT scan of the head shows no acute intracranial abnormality November 24, 20192019 More alert and oriented Unable to give history Discussed with family and daughter They want long-term care 11/25: Patient seen and examined this morning noted on high flow oxygen unsure when she became toxic. Nevertheless pulmonary and ID consult patient started on steroid therapy. Will likely need remdesivir if renal function continues to show improvement We will also give Fleet enema just no documented bowel movement at this time. On CT imaging shows a large fecal material in the rectum. Called and updated Cade Pena, daughter, 11/26: Patient remains hypoxic and on high flow was weaned down to 90% at 35L discussed with nursing staff to inform respiratory therapist saturation was 96% we will continue to monitor. Will change to full dose anticoagulation at this time I am unable to get a CTA of the chest due to acute kidney injury. We will give gentle hydration as chest examination revealed clear auscultation sounds bilaterally. ID input noted continue steroids remdesivir initiated. Mild UTI noted, patient had been treated with ceftriaxone. Continue to monitor mental status for improvement CT of the head was negative. Discussed with nursing staff patient did have 2 large bowel movements yesterday. Altered mental status remains a mystery I will try to obtain records from [place] to further understand why the patient was in the hospital other place at the time 11/27: Patient seen and examined, improving some, continue current management with steroids and recently initiated remdesivir. Buffing Wheel Inspector consulted to assist us with renal function wean oxygen as tolerated. still some confusion, Called the daughter to get Clarification on the discussion with the nursing about ventilator. it was a very contentious discussion as she did not want to address the issue "stating I do not want to put that on the universe" someone else got on the phone and had discussion with the daughter including asking why he left the other hospital finally the all agreed that God forbid "something happen- you have to revive him" 11/28: Patient shows some clinical improvement with oxygen demand is down to 60% FiO2 we will see if we can wean him any further today. Possibly be able to discharge in 24 to 48 hours but will likely need 2 to 4 L of oxygen nasal cannula on discharge otherwise continue current management. Renal function is stable. Beta-tee still on hold due to bradycardia. 11/29: Continue supportive care continue high flow oxygen continue monitoring mental status waxing and waning likely secondary to underlying dementia. Noted hypokalemia will replace creatinine is improving. Continue current management and remdesivir wean oxygen as tolerated FiO2 is down to 50%. # Acute metabolic encephalopathy Current Visit: Yes Status: Acute Plan to address problem: Improved Unable to give much history Discussed with daughter Daughters number on case management notes # acute hypoxic respiratory failure secondary to COVID-19 #COVID-19 pneumonia #diabetes Plan to address problem: Blood sugar coverage Long-acting insulin started at 10 units # High blood pressure Current Visit: Yes Status: Acute Plan to address problem: Hydralazine 10 mg IV every 6 hours as needed. We will monitor the blood pressure closely # ROSANA (acute kidney injury) secondary to vasomotor nephropathy Current Visit: Yes Status: Acute Plan to address problem: Improved # Hypokalemia Current Visit: Yes Status: Acute Plan to address problem: Supplemented # Urinary tract infection Current Visit: Yes Status: Acute Plan to address problem: Rocephin 2 g IV daily. We do the blood culture urine culture. # Constipation #Acute cystitis #DVT prophylaxis Current Visit: Yes Status: Acute Plan to address problem: Heparin 5000 units subcu every 8 hours for DVT prophylaxis. Pepcid 20 mg p.o. twice daily for GI prophylaxis. Patient is a full code # severe debility Physical therapy and Occupational Therapy tomorrow Discharge planning issues Daughter wants long-term care Discussed with daughter Cade Pena, daughter, . Per daughter patient lives with his spouse Tatyana Pena [phone] C, [phone] H. They are not legally ; she is the only child for her mother Daughter stated she will be the one making decision for her father, his spouse verbalized not able to care for him at home, she is considering nursing home History Interval history: Patient seen and examined today remains on high flow oxygen intermittently confused anxious at [facility] otherwise no other complaints overnight. Remains on restraints for safety Hospitalist Physical - Physical exam Narrative exam: General appearance: Present mild respiratory distress when off the high flow oxygen, well-nourished - EENT Eyes: PERRL, EOM intact ENT: hearing intact, clear oral mucosa Ears: bilateral: normal - Neck Neck: supple, normal ROM - Respiratory Respiratory effort: normal Respiratory: bilateral: CTA - Breasts Breasts: normal - Cardiovascular Heart rate: 78 Rhythm: regular Heart Sounds: Present: S1 & S2. Absent: gallop, rub Extremities: pulses intact, No edema, normal color, Full ROM - Gastrointestinal General gastrointestinal: Present: soft, non-tender, non-distended, normal bowel sounds - Genitourinary Male genitourinary: normal - Integumentary Integumentary: clear, warm, dry - Musculoskeletal Musculoskeletal: generalized weakness - Neurologic Neurologic: moves all extremities, other (Alert somewhat improved but not oriented) placed on restraints - Psychiatric Psychiatric: other (Alert but not oriented) - Constitutional Vitals: Temp Pulse Resp BP Pulse Ox 97.8 F 60 18 119/57 94 11/29/21 05:56 11/28/21 23:14 11/29/21 05:56 11/29/21 05:56 11/29/21 09:42 General appearance: Present: no acute distress, well-nourished Results - Labs CBC & Chem 7: 11/29/21 05:15 11/29/21 05:15 Labs: Laboratory Last Values WBC 8.0 K/mm3 (4.5-11.0) 11/29/21 05:15 RBC 3.31 M/mm3 (3.65-5.03) L 11/29/21 05:15 Hgb 9.9 gm/dl (11.8-15.2) L 11/29/21 05:15 Hct 31.5 % (35.5-45.6) L 11/29/21 05:15 MCV 95 fl (84-94) H 11/29/21 05:15 MCH 30 pg (28-32) 11/29/21 05:15 MCHC 32 % (32-34) 11/29/21 05:15 RDW 15.5 % (13.2-15.2) H 11/29/21 05:15 Plt Count 323 K/mm3 (140-440) 11/29/21 05:15 Lymph % (Auto) 10.5 % (13.4-35.0) L 11/25/21 05:27 [place] % (Auto) 6.8 % (0.0-7.3) 11/25/21 05:27 Eos % (Auto) 0.2 % (0.0-4.3) 11/25/21 05:27 Baso % (Auto) 0.5 % (0.0-1.8) 11/25/21 05:27 Lymph # (Auto) 1.1 K/mm3 (1.2-5.4) L 11/25/21 05:27 [place] # (Auto) 0.7 K/mm3 (0.0-0.8) 11/25/21 05:27 Eos # (Auto) 0.0 K/mm3 (0.0-0.4) 11/25/21 05:27 Baso # (Auto) 0.1 K/mm3 (0.0-0.1) 11/25/21 05:27 Add Manual Diff Complete 11/21/21 19:36 Total Counted 100 11/21/21 19:36 Seg Neutrophils % 82.0 % (40.0-70.0) H 11/25/21 05:27 Seg Neuts % (Manual) 79.0 % (40.0-70.0) H 11/21/21 19:36 Lymphocytes % (Manual) 10.0 % (13.4-35.0) L 11/21/21 19:36 Monocytes % (Manual) 8.0 % (0.0-7.3) H 11/21/21 19:36 Basophils % (Manual) 3.0 % (0.0-1.8) H 11/21/21 19:36 Nucleated RBC % Not Reportable 11/21/21 19:36 Seg Neutrophils # 8.7 K/mm3 (1.8-7.7) H 11/25/21 05:27 Seg Neutrophils # Man 5.3 K/mm3 (1.8-7.7) 11/21/21 19:36 Band Neutrophils # 0.0 K/mm3 11/21/21 19:36 Lymphocytes # (Manual) 0.7 K/mm3 (1.2-5.4) L 11/21/21 19:36 Abs React Lymphs (Man) 0.0 K/mm3 11/21/21 19:36 Monocytes # (Manual) 0.5 K/mm3 (0.0-0.8) 11/21/21 19:36 Eosinophils # (Manual) 0.0 K/mm3 (0.0-0.4) 11/21/21 19:36 Basophils # (Manual) 0.2 K/mm3 (0.0-0.1) H 11/21/21 19:36 Metamyelocytes # 0.0 K/mm3 11/21/21 19:36 Myelocytes # 0.0 K/mm3 11/21/21 19:36 Promyelocytes # 0.0 K/mm3 11/21/21 19:36 Blast Cells # 0.0 K/mm3 11/21/21 19:36 WBC Morphology Not Reportable 11/21/21 19:36 Hypersegmented Neuts Not Reportable 11/21/21 19:36 Hyposegmented Neuts Not Reportable 11/21/21 19:36 Hypogranular Neuts Not Reportable 11/21/21 19:36 Smudge Cells Not Reportable 11/21/21 19:36 Toxic Granulation Not Reportable 11/21/21 19:36 Toxic Vacuolation Not Reportable 11/21/21 19:36 Dohle Bodies Not Reportable 11/21/21 19:36 Pelger-Huet Anomaly Not Reportable 11/21/21 19:36 Luan Rods Not Reportable 11/21/21 19:36 Platelet Estimate Consistent w auto 11/21/21 19:36 Clumped Platelets Not Reportable 11/21/21 19:36 Plt Clumps, EDTA Not Reportable 11/21/21 19:36 Large Platelets Not Reportable 11/21/21 19:36 Giant Platelets Not Reportable 11/21/21 19:36 Platelet Satelliting Not Reportable 11/21/21 19:36 Plt Morphology Comment Not Reportable 11/21/21 19:36 RBC Morphology Normal 11/21/21 19:36 Dimorphic RBCs Not Reportable 11/21/21 19:36 Polychromasia Not Reportable 11/21/21 19:36 Hypochromasia Not Reportable 11/21/21 19:36 Poikilocytosis Not Reportable 11/21/21 19:36 Anisocytosis Not Reportable 11/21/21 19:36 Microcytosis Not Reportable 11/21/21 19:36 Macrocytosis Not Reportable 11/21/21 19:36 Spherocytes Not Reportable 11/21/21 19:36 Pappenheimer Bodies Not Reportable 11/21/21 19:36 Sickle Cells Not Reportable 11/21/21 19:36 Target Cells Not Reportable 11/21/21 19:36 Tear Drop Cells Not Reportable 11/21/21 19:36 Ovalocytes Not Reportable 11/21/21 19:36 Helmet Cells Not Reportable 11/21/21 19:36 [place] Bodies Not Reportable 11/21/21 19:36 [place] Rings Not Reportable 11/21/21 19:36 [place] Cells Not Reportable 11/21/21 19:36 Bite Cells Not Reportable 11/21/21 19:36 Crenated Cell Not Reportable 11/21/21 19:36 Elliptocytes Not Reportable 11/21/21 19:36 Acanthocytes (Spur) Not Reportable 11/21/21 19:36 Rouleaux Not Reportable 11/21/21 19:36 Hemoglobin C Crystals Not Reportable 11/21/21 19:36 Schistocytes Not Reportable 11/21/21 19:36 Malaria parasites Not Reportable 11/21/21 19:36 Kalia Bodies Not Reportable 11/21/21 19:36 Hem Pathologist Commnt No 11/21/21 19:36 D-Dimer 1279.46 ng/mlDDU (0-234) H 11/26/21 16:44 Sodium 152 mmol/L (137-145) H 11/29/21 05:15 Potassium 3.2 mmol/L (3.6-5.0) L 11/29/21 05:15 Chloride 114.1 mmol/L (98-107) H 11/29/21 05:15 Carbon Dioxide 29 mmol/L (22-30) 11/29/21 05:15 Anion Gap 12 mmol/L 11/29/21 05:15 BUN 41 mg/dL (9-20) H 11/29/21 05:15 Creatinine 1.4 mg/dL (0.8-1.3) H 11/29/21 05:15 Estimated GFR 59 ml/min 11/29/21 05:15 BUN/Creatinine Ratio 29 % 11/29/21 05:15 Glucose 86 mg/dL (75-100) 11/29/21 05:15 POC Glucose 163 mg/dL (70-105) H 11/28/21 22:20 Osmolality 316 Mosm/kg 11/27/21 Unknown Uric Acid 9.8 mg/dL (3.5-7.6) H 11/27/21 Unknown Calcium 8.5 mg/dL (8.4-10.2) 11/29/21 05:15 Total Bilirubin 0.40 mg/dL (0.1-1.2) 11/28/21 06:47 AST 22 units/L (5-40) 11/28/21 06:47 ALT 28 units/L (7-56) 11/28/21 06:47 Alkaline Phosphatase 197 units/L (35-129) H 11/28/21 06:47 Ammonia 12.0 umol/L (25-60) L 11/28/21 12:59 C-Reactive Protein 13.00 mg/dL (0.00-1.30) H 11/27/21 05:17 Total Protein 5.6 g/dL (6.3-8.2) L 11/28/21 06:47 Albumin 2.5 g/dL (3.9-5) L 11/28/21 06:47 Albumin/Globulin Ratio 0.8 % 11/28/21 06:47 TSH 4.800 mlU/mL (0.270-4.200) H 11/21/21 19:37 Urine Color Kimberli (Yellow) 11/27/21 Unknown Urine Turbidity Slightly-cloudy (Clear) 11/27/21 Unknown Urine pH 5.0 (5.0-7.0) 11/27/21 Unknown Ur Specific [place] 1.013 (1.003-1.030) 11/27/21 Unknown Urine Protein <15 mg/dl mg/dL (Negative) 11/27/21 Unknown Urine Glucose (UA) 50 mg/dL (Negative) 11/27/21 Unknown Urine Ketones Tr mg/dL (Negative) 11/27/21 Unknown Urine Blood Neg (Negative) 11/27/21 Unknown Urine Nitrite Neg (Negative) 11/27/21 Unknown Urine Bilirubin Neg (Negative) 11/27/21 Unknown Urine Urobilinogen < 2.0 mg/dL (<2.0) 11/27/21 Unknown Ur Leukocyte Esterase Neg (Negative) 11/27/21 Unknown Urine WBC (Auto) 13.0 /HPF (0.0-6.0) H 11/27/21 Unknown Urine RBC (Auto) 2.0 /HPF (0.0-6.0) 11/27/21 Unknown U Epithel Cells (Auto) 1.0 /HPF (0-13.0) 11/27/21 Unknown Urine Bacteria (Auto) 1+ /HPF (Negative) 11/27/21 Unknown Urine Mucus Few /HPF 11/27/21 Unknown Urine Yeast (Budding) 2+ /HPF 11/27/21 Unknown Urine Creatinine 80.9 mg/dL (0.1-20.0) H 11/27/21 Unknown Urine Sodium 36 mmol/L 11/27/21 Unknown Urine Total Protein 43 mg/dL (5-11.8) H 11/27/21 Unknown Coronavirus (PCR) Positive (Negative) A 11/23/21 Unknown Microbiology: Microbiology 11/27/21 Unknown Urine,Clean Catch Urine Culture - Preliminary Fritz/IV: Voiding Method Condom Catheter Active Medications - Current Medications Current Medications: Generic Name Dose Route Start Last Admin Trade Name Freq PRN Reason Stop Dose Admin Acetaminophen 650 mg 11/22/21 05:48 Acetaminophen 325 Mg Tab PO Q4H PRN Pain MILD(1-3)/Fever >100.5/BRODY Albuterol 2.5 mg 11/25/21 12:00 Albuterol 2.5 Mg/3 Ml Nebu IH Q4HRT PRN Shortness Of Breath Dexamethasone 6 mg 11/26/21 12:00 11/29/21 09:34 Dexamethasone 4 Mg/Ml Vial IV 12/05/21 10:01 6 mg Q24HR NANDINI Administration Dextrose 50 ml 11/22/21 05:48 Dextrose 50% In Water (25gm) 50 Ml Syringe IV Q30MIN PRN Hypoglycemia Protocol Docusate Sodium 100 mg 11/25/21 22:00 11/29/21 09:34 Docusate Sodium 100 Mg Cap PO 100 mg BID NANDINI Administration Enoxaparin Sodium 70 mg 11/26/21 12:30 11/29/21 09:34 Enoxaparin 80 Mg/0.8 Ml Inj SUB-Q 70 mg Q12HR NANDINI Administration Hydralazine HCl 10 mg 11/22/21 05:58 Hydralazine 20 Mg/1 Ml Inj IV Q6H PRN Blood Pressure Hydromorphone HCl 0.5 mg 11/22/21 05:48 11/23/21 06:02 Hydromorphone 1 Mg/1 Ml Inj IV 0.5 mg Q3H PRN Administration Pain , Severe (7-10) Sodium Chloride 1,000 mls @ 100 mls/hr 11/22/21 06:00 11/26/21 22:47 Nacl 0.45% 1000 Ml IV 100 mls/hr DIRECT NANDINI Administration REMDESIVIR 100 mg/ Sodium 250 mls @ 500 mls/hr 11/26/21 21:00 11/28/21 22:52 Chloride IV 11/29/21 21:29 500 mls/hr Q24HR@2100 NANDINI Administration Potassium Chloride 10 meq in 100 mls @ 100 mls/hr 11/29/21 08:00 Kcl 10meq/100ml IV 11/29/21 09:59 Q1H [facility] Insulin Human Lispro 0 unit 11/22/21 07:30 11/29/21 07:30 Insulin Lispro 100 Unit/Ml SUB-Q Not Given ACHS [facility] Protocol Morphine Sulfate 2 mg 11/22/21 05:48 11/22/21 22:43 Morphine 2 Mg/1 Ml Inj IV 2 mg Q4H PRN Administration Pain, Moderate (4-6) Ondansetron HCl 4 mg 11/22/21 05:48 Ondansetron 4 Mg/2 Ml Inj IV Q8H PRN Nausea And Vomiting Potassium Chloride 40 meq 11/29/21 10:00 Potassium Chloride Er 20 Meq Tab PO 11/29/21 13:00 ONCE NR Sodium Chloride 10 ml 11/22/21 10:00 11/28/21 22:55 Sodium Chloride 0.9% 10 Ml Flush Syringe IV 10 ml BID NANDINI Administration Sodium Chloride 10 ml 11/22/21 05:48 Sodium Chloride 0.9% 10 Ml Flush Syringe IV PRN PRN LINE FLUSH Sodium Chloride 50 ml 11/26/21 01:45 11/28/21 22:53 Sodium Chloride 0.9% 50 Ml Ivpb IV 11/29/21 21:01 50 ml Q24HR@2100 NANDINI Administration Nutrition/Malnutrition Assess - Dietary Evaluation Nutrition/Malnutrition Findings: Nutrition Notes Start: 11/22/21 14:16 Freq: Status: Active Protocol: Document 11/27/21 09:32 NICKO (Rec: 11/27/21 09:53 NICKO [id number]) Nutrition Notes Initial or Follow up Brief Note Current Diet Cardiac Consistent Carbohydrates Diet (since B ), D Suppl (L 11/27). Height 5 ft 11 in Weight 68.8 kg Nixon Body Weight (kg) 78.18 BMI 21.1 Weight change and time frame 5.3 Kg body weight gain in 5 days reported. Weight Status Underweight Subjective/Other Information RD consult for routine F/U on %PO intake of meals and ONS. No report available on %PO intake of meals at the time, last from 11/23, was at 50%. Increase Dietary Supplements to TID. Change to Glucerna to support Diabetes control. ROSANA is improving, according to Progress notes. Percent of energy/protein needs met: Prescribed Cardiac/Consistent Carbohydrates Diet provides for energy/protein needs (1, 977 Kcal/86 g) during LOS; additionally, Dietary Supplements will compensate for possible Poor PO intake of meals with 660 Kcal and 30 g of protein. Current % PO Fair (50-74%) #1 Nutrition Diagnosis Underweight Diagnosis Progress(for reassessment Continues documentation) Nutrition Intervention Change Diet Order: Continue Cardiac Consistent Carbohydrates Diet. Add Supplement/Snack (indicate name/kcal 8 fl oz Glucerna; TID /protein ) Provides kCal: 660 Provides Protein (gm) 30 Goal #1 Compensate, through dietary supplementation, for possible poor or insufficient PO intake of meals during LOS. Follow-Up By: 12/04/21 Additional Comments Continue monitoring food tolerance, %PO intake of meals , and BM.
[2021-11-29] MEDS ORDERED: POTASSIUM CHLORIDE ER 20 MEQ TAB PO NR (10:00)
--- NOTE | 2021-11-29 10:37 | Progress Note ---
Assessment and Plan Impression * Nonoliguric acute kidney injury secondary to prerenal azotemia (FeNa 0.5%) --Baseline SCr 13mg/dL * Acute hypoxic respiratory failure secondary to COVID 19 PNA * Severe COVID-19 pneumonia * Hypernatremia * Hypokalemia * Acute encephalopathy * Cardiomyopathy - EF 35% * Anemia * Urinary tract infection - Klebsiella pneumonia * Mild left hydronephrosis Recommendations * Renal function now at baseline * Na is increasing depsite 0.45% NS. Will change to D5W w/ 20KCl - continue current rate * Continue to hold MIREYA inhibitor/ARB at this time * Encourage free water intake * Management of COVID-19 PNA per ID and primary team * Abx per ID * Maintain MAP >65 * Avoid potential nephrotoxins * Monitor lytes, fluid balance closely * Strict I/O Subjective Date of service: 11/29/21 Principal diagnosis: Acute encephalopathy Interval history: Patient has no complaints. No acute events overnight Objective - Vital Signs Vital signs: Vital Signs - 12hr 11/28/21 11/28/21 11/29/21 23:06 23:14 01:54 Temperature 97.7 F Pulse Rate 60 Respiratory 18 Rate Blood Pressure 128/69 O2 Sat by Pulse 99 95 95 Oximetry 11/29/21 11/29/21 11/29/21 03:20 05:56 09:42 Temperature 97.8 F Pulse Rate Respiratory 18 Rate Blood Pressure 118/57 119/57 O2 Sat by Pulse 46 L 94 Oximetry - General Appearance General appearance: well-developed, well-nourished, frail EENT: ATNC Respiratory: Present: Other (ISOLATION STETHOSCOPE NOT AVAILABLE FOR EXAM) Cardiology: other (ISOLATION STETHOSCOPE NOT AVAILABLE FOR EXAM) Gastrointestinal: no tenderness, no distended Integumentary: no rash, warm and dry Psychiatric: paranoid ideation - Lab 11/29/21 05:15 11/29/21 05:15 Most recent lab results Calcium 8.5 mg/dL (8.4-10.2) 11/29/21 05:15 Urine Creatinine 80.9 mg/dL (0.1-20.0) H 11/27/21 Unknown Urine Sodium 36 mmol/L 11/27/21 Unknown Urine Total Protein 43 mg/dL (5-11.8) H 11/27/21 Unknown Medications & Allergies - Medications Allergies/Adverse Reactions: Allergies No Known Allergies Allergy (Verified 11/22/21 05:55) Home Medications: Home Medications Medication Instructions Recorded Confirmed Last Taken Type Furosemide [Lasix TAB] 80 mg PO TID 11/24/21 11/24/21 Unknown History Gabapentin [Neurontin] 300 mg PO BID 11/24/21 11/27/21 11/19/21 09:12 History 300 mg Sacubitril/Valsartan [Entresto 1 tab PO BID 11/24/21 11/27/21 11/19/21 09:12 History 49-51 mg] 1 tab Spironolactone [Aldactone] 25 mg PO QDAY 11/24/21 11/27/21 11/19/21 09:12 History 25 mg Tamsulosin [Flomax] 0.4 mg PO QDAY 11/24/21 11/27/21 11/18/21 22:02 History 0.4 mg carvediloL [Coreg] 6.25 mg PO BID 11/24/21 11/27/21 11/19/21 09:12 History 6.25mg AtorvaSTATin [Lipitor] 40 mg PO QHS 11/27/21 11/27/21 11/19/21 09:12 History 40 mg Insulin Glargine,Hum.rec.anlog 12 unit SQ QHS 11/27/21 11/27/21 11/18/21 22:02 History [Lantus Solostar] 12 units Insulin Lispro [Admelog] 1 - 12 unit SQ TIDAC 11/27/21 11/27/21 11/19/21 08:32 History 6 units Insulin Lispro [Admelog] 4 unit SQ TID 11/27/21 11/27/21 11/19/21 08:33 History 4 units oxyCODONE /ACETAMINOPHEN [Percocet 1 tab PO Q6HR PRN 11/27/21 11/27/21 11/19/21 03:57 History 5/325] 1 tab Active Medications: Generic Name Dose Route Start Last Admin Trade Name Freq PRN Reason Stop Dose Admin Acetaminophen 650 mg 11/22/21 05:48 Acetaminophen 325 Mg Tab PO Q4H PRN Pain MILD(1-3)/Fever >100.5/BRODY Albuterol 2.5 mg 11/25/21 12:00 Albuterol 2.5 Mg/3 Ml Nebu IH Q4HRT PRN Shortness Of Breath Dexamethasone 6 mg 11/26/21 12:00 11/29/21 09:34 Dexamethasone 4 Mg/Ml Vial IV 12/05/21 10:01 6 mg Q24HR NANDINI Administration Dextrose 50 ml 11/22/21 05:48 Dextrose 50% In Water (25gm) 50 Ml Syringe IV Q30MIN PRN Hypoglycemia Protocol Docusate Sodium 100 mg 11/25/21 22:00 11/29/21 09:34 Docusate Sodium 100 Mg Cap PO 100 mg BID NANDINI Administration Enoxaparin Sodium 70 mg 11/26/21 12:30 11/29/21 09:34 Enoxaparin 80 Mg/0.8 Ml Inj SUB-Q 70 mg Q12HR NANDINI Administration Hydralazine HCl 10 mg 11/22/21 05:58 Hydralazine 20 Mg/1 Ml Inj IV Q6H PRN Blood Pressure Hydromorphone HCl 0.5 mg 11/22/21 05:48 11/23/21 06:02 Hydromorphone 1 Mg/1 Ml Inj IV 0.5 mg Q3H PRN Administration Pain , Severe (7-10) Sodium Chloride 1,000 mls @ 100 mls/hr 11/22/21 06:00 11/26/21 22:47 Nacl 0.45% 1000 Ml IV 100 mls/hr DIRECT NANDINI Administration REMDESIVIR 100 mg/ Sodium 250 mls @ 500 mls/hr 11/26/21 21:00 11/28/21 22:52 Chloride IV 11/29/21 21:29 500 mls/hr Q24HR@2100 NANDINI Administration Insulin Human Lispro 0 unit 11/22/21 07:30 11/29/21 07:30 Insulin Lispro 100 Unit/Ml SUB-Q Not Given ACHS NANDINI Protocol Morphine Sulfate 2 mg 11/22/21 05:48 11/22/21 22:43 Morphine 2 Mg/1 Ml Inj IV 2 mg Q4H PRN Administration Pain, Moderate (4-6) Ondansetron HCl 4 mg 11/22/21 05:48 Ondansetron 4 Mg/2 Ml Inj IV Q8H PRN Nausea And Vomiting Potassium Chloride 40 meq 11/29/21 10:00 11/29/21 09:53 Potassium Chloride Er 20 Meq Tab PO 11/29/21 13:00 40 meq ONCE NR Administration Sodium Chloride 10 ml 11/22/21 10:00 11/28/21 22:55 Sodium Chloride 0.9% 10 Ml Flush Syringe IV 10 ml BID NANDINI Administration Sodium Chloride 10 ml 11/22/21 05:48 Sodium Chloride 0.9% 10 Ml Flush Syringe IV PRN PRN LINE FLUSH Sodium Chloride 50 ml 11/26/21 01:45 11/28/21 22:53 Sodium Chloride 0.9% 50 Ml Ivpb IV 11/29/21 21:01 50 ml Q24HR@2100 NANDINI Administration
--- NOTE | 2021-11-29 11:34 | Progress Note ---
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 Currently anticoagulated on Lovenox COPD DM Echo 11/27/2021- EF 40 to 45%, mild global hypokinesis of left ventricle. Right ventricular systolic function is normal. Mild aortic regurgitation. Trace tricuspid and pulmonic regurgitation Echo 12/01/2020- LVEF 35 - 40%. LV systolic function is moderately decreased,Grade I (mild) diastolic dysfunction. There were technical limitations during this study due to patient positioning and patient body habitus. Poor views unable to evaluate any of the valves PET Stress 01/31/2021- Abnormal pharmacological PET stress test. There is a small sized mild to moderate intensity partially reversible perfusion defect seen in the apical inferior wall consistent with infarct/scar and a small amount of ischemia. SSS 3, SRS 1, SDS 2. TID 0.84(normal).Severely depressed resting LV systolic function with a calculated LVEF 22% at rest which increased to 29% with peak stress. Global LV hypokinesis. Coronary calcifications were not seen by chest CT, however CT for attenuation correction is not sensitive. Stress ECG was negative for ischemia. No symptoms of chest pain with vasodilator stress Outpatient medications: Coreg 6.25 mg p.o. twice daily atorvastatin 40 mg p.o. nightly, spironolactone 25 mg p.o. daily, Entresto 49-51 mg p.o. twice daily, Lasix 80 mg p.o. 3 times daily rec; restart coreg 3.125mg pt off high flow o2 and sat 100%, asked respiratory for o2 evulation and hold of chf meds Subjective Date of service: 11/29/21 Principal diagnosis: Acute encephalopathy Interval history: in bed sob is better Objective Vital Signs Temp Pulse Pulse Resp BP BP Pulse Ox 11/29/21 09:42 94 11/29/21 05:56 97.8 F 18 119/57 11/29/21 03:20 118/57 46 L 11/29/21 01:54 95 11/28/21 23:14 97.7 F 60 18 128/69 95 11/28/21 23:06 99 11/28/21 22:00 60 18 97 11/28/21 16:07 97.0 F L 58 L 24 125/70 96 11/28/21 14:00 94 11/28/21 11:54 98.7 F 54 L 24 128/77 97 - Physical Examination General: Other (AMS) HEENT: Positive: PERRL, Mucus Membranes Dry Neck: Positive: trachea midline Cardiac: Positive: Reg Rate and Rhythm Lungs: Positive: clear to auscultation Neuro: Positive: Grossly Intact Abdomen: Positive: Soft Skin: Negative: Rash, Suspicious Lesions, Ulceration Extremities: Present: upper extr. pulses. Absent: edema - Labs and Meds CBC 11/29/21 Range/Units 05:15 WBC 8.0 (4.5-11.0) K/mm3 RBC 3.31 L (3.65-5.03) M/mm3 Hgb 9.9 L (11.8-15.2) gm/dl Hct 31.5 L (35.5-45.6) % Plt Count 323 (140-440) K/mm3 Comprehensive Metabolic Panel 11/29/21 Range/Units 05:15 Sodium 152 H (137-145) mmol/L Potassium 3.2 L (3.6-5.0) mmol/L Chloride 114.1 H (98-107) mmol/L Carbon Dioxide 29 (22-30) mmol/L BUN 41 H (9-20) mg/dL Creatinine 1.4 H (0.8-1.3) mg/dL Glucose 86 (75-100) mg/dL Calcium 8.5 (8.4-10.2) mg/dL - Imaging and Cardiology Echo: report reviewed - Telemetry EKG Rhythm: Sinus Rhythm - EKG Sinus rhythms and dysrhythmias: sinus bradycardia
[2021-11-29] MEDS: FLUCONAZOLE 100 MG TAB PO SCH (17:36)
[2021-11-29] MEDS: SODIUM CHLORIDE 0.9% 50 ML IVPB IV SCH (21:38)
[2021-11-29] MEDS: REMDESIVIR 100 MG in SODIUM CHLORIDE 0.9% 250ML 250 ML IV SCH (21:46)
[2021-11-30] MEDS: INSULIN LISPRO 100 UNIT/ML SUB-Q SCH ×4 (07:30→21:43)
--- NOTE | 2021-11-30 09:11 | Progress Note ---
Assessment and Plan Assessment and plan: 81-year-old male with past medical history of hypertension and diabetes was brought to the emergency room in by family due to altered mental status/confusion. Patient discharged from [facility] 2 days ago and has been confused since then. The did not know why he was in the hospital to begin with. Allegedly, before he went to the hospital he was able to have a cogent conversation and was ambulatory. Now, apparently he cannot support his own weight. He is confused and cannot carry a cogent conversation. Labs revealed several mild abnormalities including ROSANA with mildly elevated creatinine and hypokalemia with potassium of 3.2. There is no leukocytosis or anemia. Urinalysis shows UTI. Initial CT scan of the head shows no acute intracranial abnormality November 24, 20192019 More alert and oriented Unable to give history Discussed with family and daughter They want long-term care 11/25: Patient seen and examined this morning noted on high flow oxygen unsure when she became toxic. Nevertheless pulmonary and ID consult patient started on steroid therapy. Will likely need remdesivir if renal function continues to show improvement We will also give Fleet enema just no documented bowel movement at this time. On CT imaging shows a large fecal material in the rectum. Called and updated Cade Pena, daughter, 11/26: Patient remains hypoxic and on high flow was weaned down to 90% at 35L discussed with nursing staff to inform respiratory therapist saturation was 96% we will continue to monitor. Will change to full dose anticoagulation at this time I am unable to get a CTA of the chest due to acute kidney injury. We will give gentle hydration as chest examination revealed clear auscultation sounds bilaterally. ID input noted continue steroids remdesivir initiated. Mild UTI noted, patient had been treated with ceftriaxone. Continue to monitor mental status for improvement CT of the head was negative. Discussed with nursing staff patient did have 2 large bowel movements yesterday. Altered mental status remains a mystery I will try to obtain records from [place] to further understand why the patient was in the hospital other place at the time 11/27: Patient seen and examined, improving some, continue current management with steroids and recently initiated remdesivir. Fisher Eel consulted to assist us with renal function wean oxygen as tolerated. still some confusion, Called the daughter to get Clarification on the discussion with the nursing about ventilator. it was a very contentious discussion as she did not want to address the issue "stating I do not want to put that on the universe" someone else got on the phone and had discussion with the daughter including asking why he left the other hospital finally the all agreed that God forbid "something happen- you have to revive him" 11/28: Patient shows some clinical improvement with oxygen demand is down to 60% FiO2 we will see if we can wean him any further today. Possibly be able to discharge in 24 to 48 hours but will likely need 2 to 4 L of oxygen nasal cannula on discharge otherwise continue current management. Renal function is stable. Beta-tee still on hold due to bradycardia. 11/29: Continue supportive care continue high flow oxygen continue monitoring mental status waxing and waning likely secondary to underlying dementia. Noted hypokalemia will replace creatinine is improving. Continue current management and remdesivir wean oxygen as tolerated FiO2 is down to 50%. 11/30: Patient is an 81-year-old male with history of hypertension diabetes mellitus came into the hospital following being found by family with altered men reynold status and confusion apparently was diagnosed with COVID-19 at [facility] but left AGAINST MEDICAL ADVICE. It appears that the confusion had been ongoing for some reason the family brought the patient here to the hospital was noted to have acute kidney injury with hyperkalemia which has since been improving also acute cystitis and UTI and of course the COVID-19 for which he has decompensated significantly and is currently on steroid therapy. Remdesivir is precluded due to his renal function. Have discussed with case management that if he cannot be weaned off high flow he may benefit from going to an LTAC. He remains on restraints due to his intermittent confusion. While he had a CT of the head which was negative an MRI has not been done due to oxygen demand but since he has been weaned down some we will go ahead and order an MRI for clarity. # Acute metabolic encephalopathy Current Visit: Yes Status: Acute Plan to address problem: Improved Unable to give much history Discussed with daughter Daughters number on case management notes # acute hypoxic respiratory failure secondary to COVID-19 #COVID-19 pneumonia #diabetes Plan to address problem: Blood sugar coverage Long-acting insulin started at 10 units #Hypertension Current Visit: Yes Status: Acute Plan to address problem: Hydralazine 10 mg IV every 6 hours as needed. We will monitor the blood pressure closely # ROSANA (acute kidney injury) secondary to vasomotor nephropathy Current Visit: Yes Status: Acute Plan to address problem: Improved # Hypokalemia Current Visit: Yes Status: Acute Plan to address problem: Supplemented # Urinary tract infection Current Visit: Yes Status: Acute Plan to address problem: Rocephin 2 g IV daily. We do the blood culture urine culture. # Constipation #Acute cystitis CAD Cardiomyopathy Chronic HFrEF PAF?- not on OAC as OP. Currently anticoagulated on Lovenox #DVT prophylaxis Current Visit: Yes Status: Acute Plan to address problem: Heparin 5000 units subcu every 8 hours for DVT prophylaxis. Pepcid 20 mg p.o. twice daily for GI prophylaxis. Patient is a full code # severe debility Physical therapy and Occupational Therapy tomorrow Discharge planning issues Daughter wants long-term care Discussed with daughter Cade Pena, daughter, . Per daughter patient lives with his spouse Tatyana Pena [phone] C, [phone] H. They are not legally ; she is the only child for her mother Daughter stated she will be the one making decision for her father, his spouse verbalized not able to care for him at home, she is considering [employer] History Interval history: Patient seen and examined today remains on high flow oxygen intermittently confused anxious at [facility] otherwise no other complaints overnight. Remains on restraints for safety Hospitalist Physical - Physical exam Narrative exam: General appearance: Present mild respiratory distress when off the high flow oxygen, well-nourished - EENT Eyes: PERRL, EOM intact ENT: hearing intact, clear oral mucosa Ears: bilateral: normal - Neck Neck: supple, normal ROM - Respiratory Respiratory effort: normal Respiratory: bilateral: CTA - Breasts Breasts: normal - Cardiovascular Heart rate: 78 Rhythm: regular Heart Sounds: Present: S1 & S2. Absent: gallop, rub Extremities: pulses intact, No edema, normal color, Full ROM - Gastrointestinal General gastrointestinal: Present: soft, non-tender, non-distended, normal bowel sounds - Genitourinary Male genitourinary: normal - Integumentary Integumentary: clear, warm, dry - Musculoskeletal Musculoskeletal: generalized weakness - Neurologic Neurologic: moves all extremities, other (Alert somewhat improved but not oriented) placed on restraints - Psychiatric Psychiatric: other (Alert but not oriented) - Constitutional Vitals: Temp Pulse Resp BP Pulse Ox 98.2 F 54 L 18 140/71 94 11/30/21 05:15 11/30/21 05:15 11/30/21 05:15 11/30/21 05:15 11/30/21 07:29 General appearance: Present: no acute distress, well-nourished Results - Labs CBC & Chem 7: 11/29/21 05:15 11/29/21 05:15 Labs: Laboratory Last Values WBC 8.0 K/mm3 (4.5-11.0) 11/29/21 05:15 RBC 3.31 M/mm3 (3.65-5.03) L 11/29/21 05:15 Hgb 9.9 gm/dl (11.8-15.2) L 11/29/21 05:15 Hct 31.5 % (35.5-45.6) L 11/29/21 05:15 MCV 95 fl (84-94) H 11/29/21 05:15 MCH 30 pg (28-32) 11/29/21 05:15 MCHC 32 % (32-34) 11/29/21 05:15 RDW 15.5 % (13.2-15.2) H 11/29/21 05:15 Plt Count 323 K/mm3 (140-440) 11/29/21 05:15 Lymph % (Auto) 10.5 % (13.4-35.0) L 11/25/21 05:27 [place] % (Auto) 6.8 % (0.0-7.3) 11/25/21 05:27 Eos % (Auto) 0.2 % (0.0-4.3) 11/25/21 05:27 Baso % (Auto) 0.5 % (0.0-1.8) 11/25/21 05:27 Lymph # (Auto) 1.1 K/mm3 (1.2-5.4) L 11/25/21 05:27 [place] # (Auto) 0.7 K/mm3 (0.0-0.8) 11/25/21 05:27 Eos # (Auto) 0.0 K/mm3 (0.0-0.4) 11/25/21 05:27 Baso # (Auto) 0.1 K/mm3 (0.0-0.1) 11/25/21 05:27 Add Manual Diff Complete 11/21/21 19:36 Total Counted 100 11/21/21 19:36 Seg Neutrophils % 82.0 % (40.0-70.0) H 11/25/21 05:27 Seg Neuts % (Manual) 79.0 % (40.0-70.0) H 11/21/21 19:36 Lymphocytes % (Manual) 10.0 % (13.4-35.0) L 11/21/21 19:36 Monocytes % (Manual) 8.0 % (0.0-7.3) H 11/21/21 19:36 Basophils % (Manual) 3.0 % (0.0-1.8) H 11/21/21 19:36 Nucleated RBC % Not Reportable 11/21/21 19:36 Seg Neutrophils # 8.7 K/mm3 (1.8-7.7) H 11/25/21 05:27 Seg Neutrophils # Man 5.3 K/mm3 (1.8-7.7) 11/21/21 19:36 Band Neutrophils # 0.0 K/mm3 11/21/21 19:36 Lymphocytes # (Manual) 0.7 K/mm3 (1.2-5.4) L 11/21/21 19:36 Abs React Lymphs (Man) 0.0 K/mm3 11/21/21 19:36 Monocytes # (Manual) 0.5 K/mm3 (0.0-0.8) 11/21/21 19:36 Eosinophils # (Manual) 0.0 K/mm3 (0.0-0.4) 11/21/21 19:36 Basophils # (Manual) 0.2 K/mm3 (0.0-0.1) H 11/21/21 19:36 Metamyelocytes # 0.0 K/mm3 11/21/21 19:36 Myelocytes # 0.0 K/mm3 11/21/21 19:36 Promyelocytes # 0.0 K/mm3 11/21/21 19:36 Blast Cells # 0.0 K/mm3 11/21/21 19:36 WBC Morphology Not Reportable 11/21/21 19:36 Hypersegmented Neuts Not Reportable 11/21/21 19:36 Hyposegmented Neuts Not Reportable 11/21/21 19:36 Hypogranular Neuts Not Reportable 11/21/21 19:36 Smudge Cells Not Reportable 11/21/21 19:36 Toxic Granulation Not Reportable 11/21/21 19:36 Toxic Vacuolation Not Reportable 11/21/21 19:36 Dohle Bodies Not Reportable 11/21/21 19:36 Pelger-Huet Anomaly Not Reportable 11/21/21 19:36 Luan Rods Not Reportable 11/21/21 19:36 Platelet Estimate Consistent w auto 11/21/21 19:36 Clumped Platelets Not Reportable 11/21/21 19:36 Plt Clumps, EDTA Not Reportable 11/21/21 19:36 Large Platelets Not Reportable 11/21/21 19:36 Giant Platelets Not Reportable 11/21/21 19:36 Platelet Satelliting Not Reportable 11/21/21 19:36 Plt Morphology Comment Not Reportable 11/21/21 19:36 RBC Morphology Normal 11/21/21 19:36 Dimorphic RBCs Not Reportable 11/21/21 19:36 Polychromasia Not Reportable 11/21/21 19:36 Hypochromasia Not Reportable 11/21/21 19:36 Poikilocytosis Not Reportable 11/21/21 19:36 Anisocytosis Not Reportable 11/21/21 19:36 Microcytosis Not Reportable 11/21/21 19:36 Macrocytosis Not Reportable 11/21/21 19:36 Spherocytes Not Reportable 11/21/21 19:36 Pappenheimer Bodies Not Reportable 11/21/21 19:36 Sickle Cells Not Reportable 11/21/21 19:36 Target Cells Not Reportable 11/21/21 19:36 Tear Drop Cells Not Reportable 11/21/21 19:36 Ovalocytes Not Reportable 11/21/21 19:36 Helmet Cells Not Reportable 11/21/21 19:36 [place] Bodies Not Reportable 11/21/21 19:36 Fosters Rings Not Reportable 11/21/21 19:36 Star Cells Not Reportable 11/21/21 19:36 Bite Cells Not Reportable 11/21/21 19:36 Crenated Cell Not Reportable 11/21/21 19:36 Elliptocytes Not Reportable 11/21/21 19:36 Acanthocytes (Spur) Not Reportable 11/21/21 19:36 Rouleaux Not Reportable 11/21/21 19:36 Hemoglobin C Crystals Not Reportable 11/21/21 19:36 Schistocytes Not Reportable 11/21/21 19:36 Malaria parasites Not Reportable 11/21/21 19:36 Kalia Bodies Not Reportable 11/21/21 19:36 Hem Pathologist Commnt No 11/21/21 19:36 D-Dimer 1279.46 ng/mlDDU (0-234) H 11/26/21 16:44 Sodium 152 mmol/L (137-145) H 11/29/21 05:15 Potassium 3.2 mmol/L (3.6-5.0) L 11/29/21 05:15 Chloride 114.1 mmol/L (98-107) H 11/29/21 05:15 Carbon Dioxide 29 mmol/L (22-30) 11/29/21 05:15 Anion Gap 12 mmol/L 11/29/21 05:15 BUN 41 mg/dL (9-20) H 11/29/21 05:15 Creatinine 1.4 mg/dL (0.8-1.3) H 11/29/21 05:15 Estimated GFR 59 ml/min 11/29/21 05:15 BUN/Creatinine Ratio 29 % 11/29/21 05:15 Glucose 86 mg/dL (75-100) 11/29/21 05:15 POC Glucose 150 mg/dL (70-105) H 11/30/21 07:20 Osmolality 316 Mosm/kg 11/27/21 Unknown Uric Acid 9.8 mg/dL (3.5-7.6) H 11/27/21 Unknown Calcium 8.5 mg/dL (8.4-10.2) 11/29/21 05:15 Total Bilirubin 0.40 mg/dL (0.1-1.2) 11/28/21 06:47 AST 22 units/L (5-40) 11/28/21 06:47 ALT 28 units/L (7-56) 11/28/21 06:47 Alkaline Phosphatase 197 units/L (35-129) H 11/28/21 06:47 Ammonia 12.0 umol/L (25-60) L 11/28/21 12:59 C-Reactive Protein 13.00 mg/dL (0.00-1.30) H 11/27/21 05:17 Total Protein 5.6 g/dL (6.3-8.2) L 11/28/21 06:47 Albumin 2.5 g/dL (3.9-5) L 11/28/21 06:47 Albumin/Globulin Ratio 0.8 % 11/28/21 06:47 TSH 4.800 mlU/mL (0.270-4.200) H 11/21/21 19:37 Urine Color Kimberli (Yellow) 11/27/21 Unknown Urine Turbidity Slightly-cloudy (Clear) 11/27/21 Unknown Urine pH 5.0 (5.0-7.0) 11/27/21 Unknown Ur Specific [place] 1.013 (1.003-1.030) 11/27/21 Unknown Urine Protein <15 mg/dl mg/dL (Negative) 11/27/21 Unknown Urine Glucose (UA) 50 mg/dL (Negative) 11/27/21 Unknown Urine Ketones Tr mg/dL (Negative) 11/27/21 Unknown Urine Blood Neg (Negative) 11/27/21 Unknown Urine Nitrite Neg (Negative) 11/27/21 Unknown Urine Bilirubin Neg (Negative) 11/27/21 Unknown Urine Urobilinogen < 2.0 mg/dL (<2.0) 11/27/21 Unknown Ur Leukocyte Esterase Neg (Negative) 11/27/21 Unknown Urine WBC (Auto) 13.0 /HPF (0.0-6.0) H 11/27/21 Unknown Urine RBC (Auto) 2.0 /HPF (0.0-6.0) 11/27/21 Unknown U Epithel Cells (Auto) 1.0 /HPF (0-13.0) 11/27/21 Unknown Urine Bacteria (Auto) 1+ /HPF (Negative) 11/27/21 Unknown Urine Mucus Few /HPF 11/27/21 Unknown Urine Yeast (Budding) 2+ /HPF 11/27/21 Unknown Urine Creatinine 80.9 mg/dL (0.1-20.0) H 11/27/21 Unknown Urine Sodium 36 mmol/L 11/27/21 Unknown Urine Total Protein 43 mg/dL (5-11.8) H 11/27/21 Unknown Coronavirus (PCR) Positive (Negative) A 11/23/21 Unknown Microbiology: Microbiology 11/27/21 Unknown Urine,Clean Catch Urine Culture - Final Natalia Albicans Fritz/IV: Voiding Method Incontinent Active Medications - Current Medications Current Medications: Generic Name Dose Route Start Last Admin Trade Name Freq PRN Reason Stop Dose Admin Acetaminophen 650 mg 11/22/21 05:48 Acetaminophen 325 Mg Tab PO Q4H PRN Pain MILD(1-3)/Fever >100.5/BRODY Albuterol 2.5 mg 11/25/21 12:00 Albuterol 2.5 Mg/3 Ml Nebu IH Q4HRT PRN Shortness Of Breath Dexamethasone 6 mg 11/26/21 12:00 11/29/21 09:34 Dexamethasone 4 Mg/Ml Vial IV 12/05/21 10:01 6 mg Q24HR NANDINI Administration Dextrose 50 ml 11/22/21 05:48 Dextrose 50% In Water (25gm) 50 Ml Syringe IV Q30MIN PRN Hypoglycemia Protocol Docusate Sodium 100 mg 11/25/21 22:00 11/29/21 21:38 Docusate Sodium 100 Mg Cap PO 100 mg BID NANDINI Administration Enoxaparin Sodium 70 mg 11/26/21 12:30 11/29/21 21:36 Enoxaparin 80 Mg/0.8 Ml Inj SUB-Q 70 mg Q12HR NANDINI Administration Fluconazole 100 mg 11/29/21 15:00 11/29/21 17:36 Fluconazole 100 Mg Tab PO 12/03/21 15:01 100 mg Q24H NANDINI Administration Protocol Hydralazine HCl 10 mg 11/22/21 05:58 Hydralazine 20 Mg/1 Ml Inj IV Q6H PRN Blood Pressure Hydromorphone HCl 0.5 mg 11/22/21 05:48 11/23/21 06:02 Hydromorphone 1 Mg/1 Ml Inj IV 0.5 mg Q3H PRN Administration Pain , Severe (7-10) Potassium Chloride 20 meq/ 1,010 mls @ 75 mls/hr 11/29/21 15:30 Dextrose IV DIRECT NANDINI Insulin Human Lispro 0 unit 11/22/21 07:30 11/30/21 07:30 Insulin Lispro 100 Unit/Ml SUB-Q 2 unit ACHS NANDINI Administration Protocol Morphine Sulfate 2 mg 11/22/21 05:48 11/22/21 22:43 Morphine 2 Mg/1 Ml Inj IV 2 mg Q4H PRN Administration Pain, Moderate (4-6) Ondansetron HCl 4 mg 11/22/21 05:48 Ondansetron 4 Mg/2 Ml Inj IV Q8H PRN Nausea And Vomiting Sodium Chloride 10 ml 11/22/21 10:00 11/29/21 21:39 Sodium Chloride 0.9% 10 Ml Flush Syringe IV 10 ml BID NANDINI Administration Sodium Chloride 10 ml 11/22/21 05:48 Sodium Chloride 0.9% 10 Ml Flush Syringe IV PRN PRN LINE FLUSH Nutrition/Malnutrition Assess - Dietary Evaluation Nutrition/Malnutrition Findings: Nutrition Notes Start: 11/22/21 14:16 Freq: Status: Active Protocol: Document 11/27/21 09:32 NICKO (Rec: 11/27/21 09:53 NICKO [id number]) Nutrition Notes Initial or Follow up Brief Note Current Diet Cardiac Consistent Carbohydrates Diet (since B ), D Suppl (L 11/27). Height 5 ft 11 in Weight 68.8 kg [place] Body Weight (kg) 78.18 BMI 21.1 Weight change and time frame 5.3 Kg body weight gain in 5 days reported. Weight Status Underweight Subjective/Other Information RD consult for routine F/U on %PO intake of meals and ONS. No report available on %PO intake of meals at the time, last from 11/23, was at 50%. Increase Dietary Supplements to TID. Change to Glucerna to support Diabetes control. ROSANA is improving, according to Progress notes. Percent of energy/protein needs met: Prescribed Cardiac/Consistent Carbohydrates Diet provides for energy/protein needs (1, 977 Kcal/86 g) during LOS; additionally, Dietary Supplements will compensate for possible Poor PO intake of meals with 660 Kcal and 30 g of protein. Current % PO Fair (50-74%) #1 Nutrition Diagnosis Underweight Diagnosis Progress(for reassessment Continues documentation) Nutrition Intervention Change Diet Order: Continue Cardiac Consistent Carbohydrates Diet. Add Supplement/Snack (indicate name/kcal 8 fl oz Glucerna; TID /protein ) Provides kCal: 660 Provides Protein (gm) 30 Goal #1 Compensate, through dietary supplementation, for possible poor or insufficient PO intake of meals during LOS. Follow-Up By: 12/04/21 Additional Comments Continue monitoring food tolerance, %PO intake of meals , and BM.
--- NOTE | 2021-11-30 09:22 | Progress Note ---
Assessment and Plan - Patient Problems (1) Acute respiratory disease due to COVID-19 virus Current Visit: Yes Status: Acute (2) Acute metabolic encephalopathy Current Visit: Yes Status: Acute (3) COVID-19 Current Visit: Yes Status: Acute (4) Diabetes Current Visit: Yes Status: Acute (5) High blood pressure Current Visit: Yes Status: Acute (6) Urinary tract infection Current Visit: Yes Status: Acute Subjective Principal diagnosis: Acute encephalopathy Interval history: confused. on hiflo o2 Objective Vital Signs - 12hr 11/29/21 11/29/21 11/30/21 22:00 22:07 05:15 Temperature 98.2 F Pulse Rate 54 L Respiratory 18 Rate Blood Pressure 140/71 O2 Sat by Pulse 98 96 95 Oximetry 11/30/21 07:29 Temperature Pulse Rate Respiratory Rate Blood Pressure O2 Sat by Pulse 94 Oximetry Constitutional: no acute distress, alert, other (confused) Eyes: non-icteric ENT: oropharynx moist Neck: supple Effort: normal Ascultation: Bilateral: diminished breath sounds Cardiovascular: regular rate and rhythm Gastrointestinal: normoactive bowel sounds, soft, non-tender, non-distended CBC and BMP: 11/29/21 05:15 11/29/21 05:15 ABG, PT/INR, D-dimer: PT/INR, D-dimer D-Dimer 1279.46 ng/mlDDU (0-234) H 11/26/21 16:44 Abnormal lab findings: Abnormal Labs 11/21/21 11/21/21 11/21/21 19:36 19:36 19:37 WBC RBC 3.56 L Hgb 10.8 L Hct 34.1 L MCV 96 H MCHC RDW 15.3 H Lymph % (Auto) Vance % (Auto) Lymph # (Auto) Seg Neutrophils % Seg Neuts % (Manual) 79.0 H Lymphocytes % (Manual) 10.0 L Monocytes % (Manual) 8.0 H Basophils % (Manual) 3.0 H Seg Neutrophils # Lymphocytes # (Manual) 0.7 L Basophils # (Manual) 0.2 H D-Dimer Sodium Potassium 3.2 L Chloride BUN 23 H Creatinine 1.4 H Glucose 210 H POC Glucose Uric Acid Calcium 8.2 L AST 45 H Alkaline Phosphatase 133 H Ammonia C-Reactive Protein Total Protein Albumin 3.0 L TSH Urine WBC (Auto) 48.0 H Urine Creatinine Urine Total Protein Coronavirus (PCR) 11/21/21 11/22/21 11/22/21 19:37 11:52 15:52 WBC RBC Hgb Hct MCV MCHC RDW Lymph % (Auto) Vance % (Auto) Lymph # (Auto) Seg Neutrophils % Seg Neuts % (Manual) Lymphocytes % (Manual) Monocytes % (Manual) Basophils % (Manual) Seg Neutrophils # Lymphocytes # (Manual) Basophils # (Manual) D-Dimer Sodium Potassium Chloride BUN Creatinine Glucose POC Glucose 144 H 194 H Uric Acid Calcium AST Alkaline Phosphatase Ammonia C-Reactive Protein Total Protein Albumin TSH 4.800 H Urine WBC (Auto) Urine Creatinine Urine Total Protein Coronavirus (PCR) 11/22/21 11/23/21 11/23/21 20:42 04:48 04:48 WBC RBC 3.22 L Hgb 9.8 L Hct 30.9 L MCV 96 H MCHC RDW Lymph % (Auto) Vance % (Auto) 9.4 H Lymph # (Auto) 1.1 L Seg Neutrophils % 76.5 H Seg Neuts % (Manual) Lymphocytes % (Manual) Monocytes % (Manual) Basophils % (Manual) Seg Neutrophils # Lymphocytes # (Manual) Basophils # (Manual) D-Dimer Sodium Potassium 3.1 L Chloride BUN 24 H Creatinine Glucose 112 H POC Glucose 155 H Uric Acid Calcium 8.1 L AST Alkaline Phosphatase Ammonia C-Reactive Protein Total Protein Albumin TSH Urine WBC (Auto) Urine Creatinine Urine Total Protein Coronavirus (PCR) 11/23/21 11/23/21 11/23/21 08:03 12:24 16:37 WBC RBC Hgb Hct MCV MCHC RDW Lymph % (Auto) Vance % (Auto) Lymph # (Auto) Seg Neutrophils % Seg Neuts % (Manual) Lymphocytes % (Manual) Monocytes % (Manual) Basophils % (Manual) Seg Neutrophils # Lymphocytes # (Manual) Basophils # (Manual) D-Dimer Sodium Potassium Chloride BUN Creatinine Glucose POC Glucose 111 H 106 H 112 H Uric Acid Calcium AST Alkaline Phosphatase Ammonia C-Reactive Protein Total Protein Albumin TSH Urine WBC (Auto) Urine Creatinine Urine Total Protein Coronavirus (PCR) 11/23/21 11/23/21 11/24/21 20:45 Unknown 11:47 WBC RBC Hgb Hct MCV MCHC RDW Lymph % (Auto) Vance % (Auto) Lymph # (Auto) Seg Neutrophils % Seg Neuts % (Manual) Lymphocytes % (Manual) Monocytes % (Manual) Basophils % (Manual) Seg Neutrophils # Lymphocytes # (Manual) Basophils # (Manual) D-Dimer Sodium Potassium Chloride BUN Creatinine Glucose POC Glucose 179 H 142 H Uric Acid Calcium AST Alkaline Phosphatase Ammonia C-Reactive Protein Total Protein Albumin TSH Urine WBC (Auto) Urine Creatinine Urine Total Protein Coronavirus (PCR) Positive A 11/24/21 11/24/21 11/25/21 18:09 20:52 05:27 WBC RBC 3.22 L Hgb 9.6 L Hct 31.1 L MCV 97 H MCHC 31 L RDW 15.6 H Lymph % (Auto) 10.5 L Vance % (Auto) Lymph # (Auto) 1.1 L Seg Neutrophils % 82.0 H Seg Neuts % (Manual) Lymphocytes % (Manual) Monocytes % (Manual) Basophils % (Manual) Seg Neutrophils # 8.7 H Lymphocytes # (Manual) Basophils # (Manual) D-Dimer Sodium Potassium Chloride BUN Creatinine Glucose POC Glucose 107 H 209 H Uric Acid Calcium AST Alkaline Phosphatase Ammonia C-Reactive Protein Total Protein Albumin TSH Urine WBC (Auto) Urine Creatinine Urine Total Protein Coronavirus (PCR) 11/25/21 11/25/21 11/25/21 05:27 05:27 13:43 WBC RBC Hgb Hct MCV MCHC RDW Lymph % (Auto) Vance % (Auto) Lymph # (Auto) Seg Neutrophils % Seg Neuts % (Manual) Lymphocytes % (Manual) Monocytes % (Manual) Basophils % (Manual) Seg Neutrophils # Lymphocytes # (Manual) Basophils # (Manual) D-Dimer Sodium 146 H Potassium Chloride 108.2 H BUN Creatinine Glucose 145 H 191 H POC Glucose Uric Acid Calcium 7.8 L AST 67 H Alkaline Phosphatase Ammonia C-Reactive Protein 25.00 H Total Protein 5.1 L D Albumin 2.5 L TSH Urine WBC (Auto) Urine Creatinine Urine Total Protein Coronavirus (PCR) 11/25/21 11/26/21 11/26/21 18:16 05:00 08:01 WBC RBC Hgb Hct MCV MCHC RDW Lymph % (Auto) Vance % (Auto) Lymph # (Auto) Seg Neutrophils % Seg Neuts % (Manual) Lymphocytes % (Manual) Monocytes % (Manual) Basophils % (Manual) Seg Neutrophils # Lymphocytes # (Manual) Basophils # (Manual) D-Dimer Sodium Potassium Chloride BUN 28 H Creatinine 1.7 H Glucose 236 H POC Glucose 149 H 206 H Uric Acid Calcium 7.8 L AST 51 H Alkaline Phosphatase 233 H Ammonia C-Reactive Protein Total Protein 5.9 L Albumin 2.3 L TSH Urine WBC (Auto) Urine Creatinine Urine Total Protein Coronavirus (PCR) 11/26/21 11/26/21 11/26/21 08:21 11:09 16:37 WBC RBC Hgb Hct MCV MCHC RDW Lymph % (Auto) Vance % (Auto) Lymph # (Auto) Seg Neutrophils % Seg Neuts % (Manual) Lymphocytes % (Manual) Monocytes % (Manual) Basophils % (Manual) Seg Neutrophils # Lymphocytes # (Manual) Basophils # (Manual) D-Dimer Sodium Potassium Chloride BUN 28 H Creatinine 1.5 H Glucose POC Glucose 198 H 154 H Uric Acid Calcium AST Alkaline Phosphatase Ammonia C-Reactive Protein Total Protein Albumin TSH Urine WBC (Auto) Urine Creatinine Urine Total Protein Coronavirus (PCR) 11/26/21 11/26/21 11/27/21 16:44 22:20 05:17 WBC 14.0 H RBC 3.12 L Hgb 9.1 L Hct 29.3 L MCV MCHC 31 L RDW Lymph % (Auto) Vance % (Auto) Lymph # (Auto) Seg Neutrophils % Seg Neuts % (Manual) Lymphocytes % (Manual) Monocytes % (Manual) Basophils % (Manual) Seg Neutrophils # Lymphocytes # (Manual) Basophils # (Manual) D-Dimer 1279.46 H Sodium Potassium Chloride BUN Creatinine Glucose POC Glucose 173 H Uric Acid Calcium AST Alkaline Phosphatase Ammonia C-Reactive Protein Total Protein Albumin TSH Urine WBC (Auto) Urine Creatinine Urine Total Protein Coronavirus (PCR) 11/27/21 11/27/21 11/27/21 05:17 05:17 11:22 WBC RBC Hgb Hct MCV MCHC RDW Lymph % (Auto) Vance % (Auto) Lymph # (Auto) Seg Neutrophils % Seg Neuts % (Manual) Lymphocytes % (Manual) Monocytes % (Manual) Basophils % (Manual) Seg Neutrophils # Lymphocytes # (Manual) Basophils # (Manual) D-Dimer Sodium 147 H Potassium Chloride 107.3 H BUN 37 H Creatinine 1.6 H Glucose 197 H POC Glucose 185 H Uric Acid Calcium 8.1 L AST Alkaline Phosphatase 211 H Ammonia C-Reactive Protein 13.00 H Total Protein 5.6 L Albumin 2.5 L TSH Urine WBC (Auto) Urine Creatinine Urine Total Protein Coronavirus (PCR) 11/27/21 11/27/21 11/27/21 17:35 21:12 Unknown WBC RBC Hgb Hct MCV MCHC RDW Lymph % (Auto) Vance % (Auto) Lymph # (Auto) Seg Neutrophils % Seg Neuts % (Manual) Lymphocytes % (Manual) Monocytes % (Manual) Basophils % (Manual) Seg Neutrophils # Lymphocytes # (Manual) Basophils # (Manual) D-Dimer Sodium Potassium Chloride BUN Creatinine Glucose POC Glucose 144 H 127 H Uric Acid Calcium AST Alkaline Phosphatase Ammonia C-Reactive Protein Total Protein Albumin TSH Urine WBC (Auto) 13.0 H Urine Creatinine Urine Total Protein Coronavirus (PCR) 11/27/21 11/27/21 11/28/21 Unknown Unknown 06:47 WBC RBC Hgb Hct MCV MCHC RDW Lymph % (Auto) Vance % (Auto) Lymph # (Auto) Seg Neutrophils % Seg Neuts % (Manual) Lymphocytes % (Manual) Monocytes % (Manual) Basophils % (Manual) Seg Neutrophils # Lymphocytes # (Manual) Basophils # (Manual) D-Dimer Sodium 148 H Potassium 3.4 L Chloride 107.4 H BUN 43 H Creatinine 1.6 H Glucose 226 H POC Glucose Uric Acid 9.8 H Calcium 8.3 L AST Alkaline Phosphatase 197 H Ammonia C-Reactive Protein Total Protein 5.6 L Albumin 2.5 L TSH Urine WBC (Auto) Urine Creatinine 80.9 H Urine Total Protein 43 H Coronavirus (PCR) 11/28/21 11/28/21 11/28/21 07:28 11:52 12:59 WBC RBC Hgb Hct MCV MCHC RDW Lymph % (Auto) Vance % (Auto) Lymph # (Auto) Seg Neutrophils % Seg Neuts % (Manual) Lymphocytes % (Manual) Monocytes % (Manual) Basophils % (Manual) Seg Neutrophils # Lymphocytes # (Manual) Basophils # (Manual) D-Dimer Sodium Potassium Chloride BUN Creatinine Glucose POC Glucose 192 H 210 H Uric Acid Calcium AST Alkaline Phosphatase Ammonia 12.0 L C-Reactive Protein Total Protein Albumin TSH Urine WBC (Auto) Urine Creatinine Urine Total Protein Coronavirus (PCR) 11/28/21 11/28/21 11/29/21 17:44 22:20 05:15 WBC RBC 3.31 L Hgb 9.9 L Hct 31.5 L MCV 95 H MCHC RDW 15.5 H Lymph % (Auto) Vance % (Auto) Lymph # (Auto) Seg Neutrophils % Seg Neuts % (Manual) Lymphocytes % (Manual) Monocytes % (Manual) Basophils % (Manual) Seg Neutrophils # Lymphocytes # (Manual) Basophils # (Manual) D-Dimer Sodium Potassium Chloride BUN Creatinine Glucose POC Glucose 213 H 163 H Uric Acid Calcium AST Alkaline Phosphatase Ammonia C-Reactive Protein Total Protein Albumin TSH Urine WBC (Auto) Urine Creatinine Urine Total Protein Coronavirus (PCR) 11/29/21 11/29/21 11/29/21 05:15 11:11 15:45 WBC RBC Hgb Hct MCV MCHC RDW Lymph % (Auto) Vance % (Auto) Lymph # (Auto) Seg Neutrophils % Seg Neuts % (Manual) Lymphocytes % (Manual) Monocytes % (Manual) Basophils % (Manual) Seg Neutrophils # Lymphocytes # (Manual) Basophils # (Manual) D-Dimer Sodium 152 H Potassium 3.2 L Chloride 114.1 H BUN 41 H Creatinine 1.4 H Glucose POC Glucose 149 H 212 H Uric Acid Calcium AST Alkaline Phosphatase Ammonia C-Reactive Protein Total Protein Albumin TSH Urine WBC (Auto) Urine Creatinine Urine Total Protein Coronavirus (PCR) 11/29/21 11/30/21 21:54 07:20 WBC RBC Hgb Hct MCV MCHC RDW Lymph % (Auto) Vance % (Auto) Lymph # (Auto) Seg Neutrophils % Seg Neuts % (Manual) Lymphocytes % (Manual) Monocytes % (Manual) Basophils % (Manual) Seg Neutrophils # Lymphocytes # (Manual) Basophils # (Manual) D-Dimer Sodium Potassium Chloride BUN Creatinine Glucose POC Glucose 197 H 150 H Uric Acid Calcium AST Alkaline Phosphatase Ammonia C-Reactive Protein Total Protein Albumin TSH Urine WBC (Auto) Urine Creatinine Urine Total Protein Coronavirus (PCR)
--- NOTE | 2021-11-30 10:31 | Progress Note ---
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 Currently anticoagulated on Lovenox COPD DM Echo 11/27/2021- EF 40 to 45%, mild global hypokinesis of left ventricle. Right ventricular systolic function is normal. Mild aortic regurgitation. Trace tricuspid and pulmonic regurgitation Echo 12/01/2020- LVEF 35 - 40%. LV systolic function is moderately decreased,Grade I (mild) diastolic dysfunction. There were technical limitations during this study due to patient positioning and patient body habitus. Poor views unable to evaluate any of the valves PET Stress 01/31/2021- Abnormal pharmacological PET stress test. There is a small sized mild to moderate intensity partially reversible perfusion defect seen in the apical inferior wall consistent with infarct/scar and a small amount of ischemia. SSS 3, SRS 1, SDS 2. TID 0.84(normal).Severely depressed resting LV systolic function with a calculated LVEF 22% at rest which increased to 29% with peak stress. Global LV hypokinesis. Coronary calcifications were not seen by chest CT, however CT for attenuation correction is not sensitive. Stress ECG was negative for ischemia. No symptoms of chest pain with vasodilator stress Outpatient medications: Coreg 6.25 mg p.o. twice daily atorvastatin 40 mg p.o. nightly, spironolactone 25 mg p.o. daily, Entresto 49-51 mg p.o. twice daily, Lasix 80 mg p.o. 3 times daily rec; restart low-dose metoprolol 12-1/2 twice a day given patient's Covid status. Still altered mental status. Waiting on a.m. labs. Continue current treatment Subjective Date of service: 11/30/21 Principal diagnosis: Acute encephalopathy Interval history: on high flow and alterted Objective Vital Signs Temp Pulse Resp BP Pulse Ox 11/30/21 07:29 94 11/30/21 05:15 98.2 F 54 L 18 140/71 95 11/29/21 22:07 96 11/29/21 22:00 98 11/29/21 15:46 97.6 F 18 133/72 11/29/21 11:20 96 11/29/21 11:11 98.2 F 20 122/57 - Physical Examination General: Other (AMS) HEENT: Positive: PERRL, Mucus Membranes Dry Neck: Positive: trachea midline Cardiac: Positive: Reg Rate and Rhythm Lungs: Positive: Decreased Breath Sounds Neuro: Positive: Grossly Intact Abdomen: Positive: Soft Skin: Negative: Rash, Suspicious Lesions, Ulceration Extremities: Present: upper extr. pulses. Absent: edema - Imaging and Cardiology Echo: report reviewed - Telemetry EKG Rhythm: Sinus Rhythm - EKG Sinus rhythms and dysrhythmias: sinus bradycardia
--- NOTE | 2021-11-30 11:41 | Progress Note ---
Subjective Principal diagnosis: Acute encephalopathy Interval history: Patient was evaluated today from renal standpoint but was not physically examined [id number] due to Covid 19 status and also to reduce the risk of t ransmission and cross infection with ongoing pandemic Events of 24 hours were noted, interdisciplinary notes were reviewed, Labs, imaging studies as well as physical examination portions were reviewed from the patient's chart Past medical history: Reviewed Family history: Reviewed Social history: Reviewed Allergies: Reviewed Physical examination: Vitals: Reviewed Reviewed from service Labs and x-rays: Reviewed from today Assessment and plan #Acute kidney injury mostly felt to be prerenal, renal function has normalized, Patient needs follow-up labs today creatinine yesterday was 1.4 sodium was 152 potassium was 3.2 Check osmolality as well as uric acid studies #Hyponatremia, hypokalemia, judicious hydration, history of congestive heart failure ejection fraction 35% #Being treated for Klebsiella pneumonia urinary tract infection with mild left hydronephrosis: Suggest urology evaluation due to complicated urinary tract infection #Anemia: Multifactorial #Covid 19: being managed by primary team #Prognosis remains guarded We'll continue to follow and make recommendation for renal standpoint Objective - Vital Signs Vital signs: Vital Signs - 12hr 11/30/21 11/30/21 05:15 07:29 Temperature 98.2 F Pulse Rate 54 L Respiratory 18 Rate Blood Pressure 140/71 O2 Sat by Pulse 95 94 Oximetry - Lab 11/29/21 05:15 11/29/21 05:15 Most recent lab results Calcium 8.5 mg/dL (8.4-10.2) 11/29/21 05:15 Urine Creatinine 80.9 mg/dL (0.1-20.0) H 11/27/21 Unknown Urine Sodium 36 mmol/L 11/27/21 Unknown Urine Total Protein 43 mg/dL (5-11.8) H 11/27/21 Unknown Medications & Allergies - Medications Allergies/Adverse Reactions: Allergies No Known Allergies Allergy (Verified 11/22/21 05:55) Home Medications: Home Medications Medication Instructions Recorded Confirmed Last Taken Type Furosemide [Lasix TAB] 80 mg PO TID 11/24/21 11/24/21 Unknown History Gabapentin [Neurontin] 300 mg PO BID 11/24/21 11/27/21 11/19/21 09:12 History 300 mg Sacubitril/Valsartan [Entresto 1 tab PO BID 11/24/21 11/27/21 11/19/21 09:12 History 49-51 mg] 1 tab Spironolactone [Aldactone] 25 mg PO QDAY 11/24/21 11/27/21 11/19/21 09:12 History 25 mg Tamsulosin [Flomax] 0.4 mg PO QDAY 11/24/21 11/27/21 11/18/21 22:02 History 0.4 mg carvediloL [Coreg] 6.25 mg PO BID 11/24/21 11/27/21 11/19/21 09:12 History 6.25mg AtorvaSTATin [Lipitor] 40 mg PO QHS 11/27/21 11/27/21 11/19/21 09:12 History 40 mg Insulin Glargine,Hum.rec.anlog 12 unit SQ QHS 11/27/21 11/27/21 11/18/21 22:02 History [Lantus Solostar] 12 units Insulin Lispro [Admelog] 1 - 12 unit SQ TIDAC 11/27/21 11/27/21 11/19/21 08:32 History 6 units Insulin Lispro [Admelog] 4 unit SQ TID 11/27/21 11/27/21 11/19/21 08:33 History 4 units oxyCODONE /ACETAMINOPHEN [Percocet 1 tab PO Q6HR PRN 11/27/21 11/27/21 11/19/21 03:57 History 5/325] 1 tab Active Medications: Generic Name Dose Route Start Last Admin Trade Name Freq PRN Reason Stop Dose Admin Acetaminophen 650 mg 11/22/21 05:48 Acetaminophen 325 Mg Tab PO Q4H PRN Pain MILD(1-3)/Fever >100.5/BRODY Albuterol 2.5 mg 11/25/21 12:00 Albuterol 2.5 Mg/3 Ml Nebu IH Q4HRT PRN Shortness Of Breath Dexamethasone 6 mg 11/26/21 12:00 11/29/21 09:34 Dexamethasone 4 Mg/Ml Vial IV 12/05/21 10:01 6 mg Q24HR NANDINI Administration Dextrose 50 ml 11/22/21 05:48 Dextrose 50% In Water (25gm) 50 Ml Syringe IV Q30MIN PRN Hypoglycemia Protocol Docusate Sodium 100 mg 11/25/21 22:00 11/29/21 21:38 Docusate Sodium 100 Mg Cap PO 100 mg BID NANDINI Administration Enoxaparin Sodium 70 mg 11/26/21 12:30 11/29/21 21:36 Enoxaparin 80 Mg/0.8 Ml Inj SUB-Q 70 mg Q12HR NANDINI Administration Fluconazole 100 mg 11/29/21 15:00 11/29/21 17:36 Fluconazole 100 Mg Tab PO 12/03/21 15:01 100 mg Q24H NANDINI Administration Protocol Hydralazine HCl 10 mg 11/22/21 05:58 Hydralazine 20 Mg/1 Ml Inj IV Q6H PRN Blood Pressure Hydromorphone HCl 0.5 mg 11/22/21 05:48 11/23/21 06:02 Hydromorphone 1 Mg/1 Ml Inj IV 0.5 mg Q3H PRN Administration Pain , Severe (7-10) Potassium Chloride 20 meq/ 1,010 mls @ 75 mls/hr 11/29/21 15:30 Dextrose IV DIRECT [facility] Insulin Human Lispro 0 unit 11/22/21 07:30 11/30/21 07:30 Insulin Lispro 100 Unit/Ml SUB-Q 2 unit ACHS [facility] Administration Protocol Metoprolol Tartrate 12.5 mg 11/30/21 22:00 Metoprolol Tartrate 25 Mg Tab PO BID [facility] Morphine Sulfate 2 mg 11/22/21 05:48 11/22/21 22:43 Morphine 2 Mg/1 Ml Inj IV 2 mg Q4H PRN Administration Pain, Moderate (4-6) Ondansetron HCl 4 mg 11/22/21 05:48 Ondansetron 4 Mg/2 Ml Inj IV Q8H PRN Nausea And Vomiting Sodium Chloride 10 ml 11/22/21 10:00 11/29/21 21:39 Sodium Chloride 0.9% 10 Ml Flush Syringe IV 10 ml BID NANDINI Administration Sodium Chloride 10 ml 11/22/21 05:48 Sodium Chloride 0.9% 10 Ml Flush Syringe IV PRN PRN LINE FLUSH
[2021-11-30] MEDS: DOCUSATE SODIUM 100 MG CAP PO SCH ×2 (11:50→21:30)
[2021-11-30] MEDS: ENOXAPARIN 80 MG/0.8 ML INJ SUB-Q SCH ×2 (11:50→21:30)
[2021-11-30] MEDS: dexAMETHasone 4 MG/ML VIAL IV SCH (11:51)
--- NOTE | 2021-11-30 13:10 | Progress Note ---
Assessment and Plan Assessment and plan: 81-year-old male with past medical history of hypertension and diabetes was brought to the emergency room in by family due to altered mental status/confusion. Patient discharged from [facility] 2 days ago and has been confused since then. The did not know why he was in the hospital to begin with. Allegedly, before he went to the hospital he was able to have a cogent conversation and was ambulatory. Now, apparently he cannot support his own weight. He is confused and cannot carry a cogent conversation. Labs revealed several mild abnormalities including ROSANA with mildly elevated creatinine and hypokalemia with potassium of 3.2. There is no leukocytosis or anemia. Urinalysis shows UTI. Initial CT scan of the head shows no acute intracranial abnormality November 24, [id number] More alert and oriented Unable to give history Discussed with family and daughter They want long-term care 11/25: Patient seen and examined this morning noted on high flow oxygen unsure when she became toxic. Nevertheless pulmonary and ID consult patient started on steroid therapy. Will likely need remdesivir if renal function continues to show improvement We will also give Fleet enema just no documented bowel movement at this time. On CT imaging shows a large fecal material in the rectum. Called and updated Cade Pena, daughter, 11/26: Patient remains hypoxic and on high flow was weaned down to 90% at 35L discussed with nursing staff to inform respiratory therapist saturation was 96% we will continue to monitor. Will change to full dose anticoagulation at this time I am unable to get a CTA of the chest due to acute kidney injury. We will give gentle hydration as chest examination revealed clear auscultation sounds bilaterally. ID input noted continue steroids remdesivir initiated. Mild UTI noted, patient had been treated with ceftriaxone. Continue to monitor mental status for improvement CT of the head was negative. Discussed with nursing staff patient did have 2 large bowel movements yesterday. Altered mental status remains a mystery I will try to obtain records from [place] to further understand why the patient was in the hospital other place at the time 11/27: Patient seen and examined, improving some, continue current management with steroids and recently initiated remdesivir. Assistant Professor Of Physics consulted to assist us with renal function wean oxygen as tolerated. still some confusion, Called the daughter to get Clarification on the discussion with the nursing about ventilator. it was a very contentious discussion as she did not want to address the issue "stating I do not want to put that on the universe" someone else got on the phone and had discussion with the daughter including asking why he left the other hospital finally the all agreed that God forbid "something happen- you have to revive him" 11/28: Patient shows some clinical improvement with oxygen demand is down to 60% FiO2 we will see if we can wean him any further today. Possibly be able to discharge in 24 to 48 hours but will likely need 2 to 4 L of oxygen nasal cannula on discharge otherwise continue current management. Renal function is stable. Beta-tee still on hold due to bradycardia. 11/29: Continue supportive care continue high flow oxygen continue monitoring mental status waxing and waning likely secondary to underlying dementia. Noted hypokalemia will replace creatinine is improving. Continue current management and remdesivir wean oxygen as tolerated FiO2 is down to 50%. 11/30: Patient is an 81-year-old male with history of hypertension diabetes mellitus came into the hospital following being found by family with altered men reynold status and confusion apparently was diagnosed with COVID-19 at [facility] but left AGAINST MEDICAL ADVICE. It appears that the confusion had been ongoing for some reason the family brought the patient here to the hospital was noted to have acute kidney injury with hyperkalemia which has since been improving also acute cystitis and UTI and of course the COVID-19 for which he has decompensated significantly and is currently on steroid therapy. Remdesivir is precluded due to his renal function. Have discussed with case management that if he cannot be weaned off high flow he may benefit from going to an LTAC. He remains on restraints due to his intermittent confusion. While he had a CT of the head which was negative an MRI has not been done due to oxygen demand but since he has been weaned down some we will go ahead and order an MRI for clarity. # Acute metabolic encephalopathy Current Visit: Yes Status: Acute Plan to address problem: Improved Unable to give much history Discussed with daughter Daughters number on case management notes # acute hypoxic respiratory failure secondary to COVID-19 #COVID-19 pneumonia #diabetes Plan to address problem: Blood sugar coverage Long-acting insulin started at 10 units #Hypertension Current Visit: Yes Status: Acute Plan to address problem: Hydralazine 10 mg IV every 6 hours as needed. We will monitor the blood pressure closely # ROSANA (acute kidney injury) secondary to vasomotor nephropathy Current Visit: Yes Status: Acute Plan to address problem: Improved # Hypokalemia Current Visit: Yes Status: Acute Plan to address problem: Supplemented # Urinary tract infection Current Visit: Yes Status: Acute Plan to address problem: Rocephin 2 g IV daily. We do the blood culture urine culture. # Constipation #Acute cystitis CAD Cardiomyopathy Chronic HFrEF PAF?- not on OAC as OP. Currently anticoagulated on Lovenox #DVT prophylaxis Current Visit: Yes Status: Acute Plan to address problem: Heparin 5000 units subcu every 8 hours for DVT prophylaxis. Pepcid 20 mg p.o. twice daily for GI prophylaxis. Patient is a full code # severe debility Physical therapy and Occupational Therapy tomorrow Discharge planning issues Daughter wants long-term care Discussed with daughter Cade Pena, daughter, . Per daughter patient lives with his spouse Tatyana Pena [phone] C, [phone] H. They are not legally ; she is the only child for her mother Daughter stated she will be the one making decision for her father, his spouse verbalized not able to care for him at home, she is considering termite control technician History Interval history: Patient seen and examined today remains on high flow oxygen intermittently confused anxious. Hospitalist Physical - Physical exam Narrative exam: General appearance: Present mild respiratory distress remains on oxygen at 2l, well-nourished - EENT Eyes: PERRL, EOM intact ENT: hearing intact, clear oral mucosa Ears: bilateral: normal - Neck Neck: supple, normal ROM - Respiratory Respiratory effort: normal Respiratory: bilateral: CTA - Breasts Breasts: normal - Cardiovascular Heart rate: 78 Rhythm: regular Heart Sounds: Present: S1 & S2. Absent: gallop, rub Extremities: pulses intact, No edema, normal color, Full ROM - Gastrointestinal General gastrointestinal: Present: soft, non-tender, non-distended, normal bowel sounds - Genitourinary Male genitourinary: normal - Integumentary Integumentary: clear, warm, dry - Musculoskeletal Musculoskeletal: generalized weakness - Neurologic Neurologic: moves all extremities, other (Alert somewhat improved but not oriented) placed on restraints - Psychiatric Psychiatric: other (Alert but not oriented) - Constitutional Vitals: Temp Pulse Resp BP Pulse Ox 98.2 F 54 L 18 140/71 94 11/30/21 05:15 11/30/21 05:15 11/30/21 05:15 11/30/21 05:15 11/30/21 07:29 General appearance: Present: no acute distress, well-nourished Results - Labs CBC & Chem 7: 11/29/21 05:15 11/29/21 05:15 Labs: Laboratory Last Values WBC 8.0 K/mm3 (4.5-11.0) 11/29/21 05:15 RBC 3.31 M/mm3 (3.65-5.03) L 11/29/21 05:15 Hgb 9.9 gm/dl (11.8-15.2) L 11/29/21 05:15 Hct 31.5 % (35.5-45.6) L 11/29/21 05:15 MCV 95 fl (84-94) H 11/29/21 05:15 MCH 30 pg (28-32) 11/29/21 05:15 MCHC 32 % (32-34) 11/29/21 05:15 RDW 15.5 % (13.2-15.2) H 11/29/21 05:15 Plt Count 323 K/mm3 (140-440) 11/29/21 05:15 Lymph % (Auto) 10.5 % (13.4-35.0) L 11/25/21 05:27 [place] % (Auto) 6.8 % (0.0-7.3) 11/25/21 05:27 Eos % (Auto) 0.2 % (0.0-4.3) 11/25/21 05:27 Baso % (Auto) 0.5 % (0.0-1.8) 11/25/21 05:27 Lymph # (Auto) 1.1 K/mm3 (1.2-5.4) L 11/25/21 05:27 [place] # (Auto) 0.7 K/mm3 (0.0-0.8) 11/25/21 05:27 Eos # (Auto) 0.0 K/mm3 (0.0-0.4) 11/25/21 05:27 Baso # (Auto) 0.1 K/mm3 (0.0-0.1) 11/25/21 05:27 Add Manual Diff Complete 11/21/21 19:36 Total Counted 100 11/21/21 19:36 Seg Neutrophils % 82.0 % (40.0-70.0) H 11/25/21 05:27 Seg Neuts % (Manual) 79.0 % (40.0-70.0) H 11/21/21 19:36 Lymphocytes % (Manual) 10.0 % (13.4-35.0) L 11/21/21 19:36 Monocytes % (Manual) 8.0 % (0.0-7.3) H 11/21/21 19:36 Basophils % (Manual) 3.0 % (0.0-1.8) H 11/21/21 19:36 Nucleated RBC % Not Reportable 11/21/21 19:36 Seg Neutrophils # 8.7 K/mm3 (1.8-7.7) H 11/25/21 05:27 Seg Neutrophils # Man 5.3 K/mm3 (1.8-7.7) 11/21/21 19:36 Band Neutrophils # 0.0 K/mm3 11/21/21 19:36 Lymphocytes # (Manual) 0.7 K/mm3 (1.2-5.4) L 11/21/21 19:36 Abs React Lymphs (Man) 0.0 K/mm3 11/21/21 19:36 Monocytes # (Manual) 0.5 K/mm3 (0.0-0.8) 11/21/21 19:36 Eosinophils # (Manual) 0.0 K/mm3 (0.0-0.4) 11/21/21 19:36 Basophils # (Manual) 0.2 K/mm3 (0.0-0.1) H 11/21/21 19:36 Metamyelocytes # 0.0 K/mm3 11/21/21 19:36 Myelocytes # 0.0 K/mm3 11/21/21 19:36 Promyelocytes # 0.0 K/mm3 11/21/21 19:36 Blast Cells # 0.0 K/mm3 11/21/21 19:36 WBC Morphology Not Reportable 11/21/21 19:36 Hypersegmented Neuts Not Reportable 11/21/21 19:36 Hyposegmented Neuts Not Reportable 11/21/21 19:36 Hypogranular Neuts Not Reportable 11/21/21 19:36 Smudge Cells Not Reportable 11/21/21 19:36 Toxic Granulation Not Reportable 11/21/21 19:36 Toxic Vacuolation Not Reportable 11/21/21 19:36 Dohle Bodies Not Reportable 11/21/21 19:36 Pelger-Huet Anomaly Not Reportable 11/21/21 19:36 Luan Rods Not Reportable 11/21/21 19:36 Platelet Estimate Consistent w auto 11/21/21 19:36 Clumped Platelets Not Reportable 11/21/21 19:36 Plt Clumps, EDTA Not Reportable 11/21/21 19:36 Large Platelets Not Reportable 11/21/21 19:36 Giant Platelets Not Reportable 11/21/21 19:36 Platelet Satelliting Not Reportable 11/21/21 19:36 Plt Morphology Comment Not Reportable 11/21/21 19:36 RBC Morphology Normal 11/21/21 19:36 Dimorphic RBCs Not Reportable 11/21/21 19:36 Polychromasia Not Reportable 11/21/21 19:36 Hypochromasia Not Reportable 11/21/21 19:36 Poikilocytosis Not Reportable 11/21/21 19:36 Anisocytosis Not Reportable 11/21/21 19:36 Microcytosis Not Reportable 11/21/21 19:36 Macrocytosis Not Reportable 11/21/21 19:36 Spherocytes Not Reportable 11/21/21 19:36 Pappenheimer Bodies Not Reportable 11/21/21 19:36 Sickle Cells Not Reportable 11/21/21 19:36 Target Cells Not Reportable 11/21/21 19:36 Tear Drop Cells Not Reportable 11/21/21 19:36 Ovalocytes Not Reportable 11/21/21 19:36 Helmet Cells Not Reportable 11/21/21 19:36 [place] Bodies Not Reportable 11/21/21 19:36 [place] Rings Not Reportable 11/21/21 19:36 Star Cells Not Reportable 11/21/21 19:36 Bite Cells Not Reportable 11/21/21 19:36 Crenated Cell Not Reportable 11/21/21 19:36 Elliptocytes Not Reportable 11/21/21 19:36 Acanthocytes (Spur) Not Reportable 11/21/21 19:36 Rouleaux Not Reportable 11/21/21 19:36 Hemoglobin C Crystals Not Reportable 11/21/21 19:36 Schistocytes Not Reportable 11/21/21 19:36 Malaria parasites Not Reportable 11/21/21 19:36 Kalia Bodies Not Reportable 11/21/21 19:36 Hem Pathologist Commnt No 11/21/21 19:36 D-Dimer 1279.46 ng/mlDDU (0-234) H 11/26/21 16:44 Sodium 152 mmol/L (137-145) H 11/29/21 05:15 Potassium 3.2 mmol/L (3.6-5.0) L 11/29/21 05:15 Chloride 114.1 mmol/L (98-107) H 11/29/21 05:15 Carbon Dioxide 29 mmol/L (22-30) 11/29/21 05:15 Anion Gap 12 mmol/L 11/29/21 05:15 BUN 41 mg/dL (9-20) H 11/29/21 05:15 Creatinine 1.4 mg/dL (0.8-1.3) H 11/29/21 05:15 Estimated GFR 59 ml/min 11/29/21 05:15 BUN/Creatinine Ratio 29 % 11/29/21 05:15 Glucose 86 mg/dL (75-100) 11/29/21 05:15 POC Glucose 180 mg/dL (70-105) H 11/30/21 11:23 Osmolality 316 Mosm/kg 11/27/21 Unknown Uric Acid 9.8 mg/dL (3.5-7.6) H 11/27/21 Unknown Calcium 8.5 mg/dL (8.4-10.2) 11/29/21 05:15 Total Bilirubin 0.40 mg/dL (0.1-1.2) 11/28/21 06:47 AST 22 units/L (5-40) 11/28/21 06:47 ALT 28 units/L (7-56) 11/28/21 06:47 Alkaline Phosphatase 197 units/L (35-129) H 11/28/21 06:47 Ammonia 12.0 umol/L (25-60) L 11/28/21 12:59 C-Reactive Protein 13.00 mg/dL (0.00-1.30) H 11/27/21 05:17 Total Protein 5.6 g/dL (6.3-8.2) L 11/28/21 06:47 Albumin 2.5 g/dL (3.9-5) L 11/28/21 06:47 Albumin/Globulin Ratio 0.8 % 11/28/21 06:47 TSH 4.800 mlU/mL (0.270-4.200) H 11/21/21 19:37 Urine Color Kimberli (Yellow) 11/27/21 Unknown Urine Turbidity Slightly-cloudy (Clear) 11/27/21 Unknown Urine pH 5.0 (5.0-7.0) 11/27/21 Unknown Ur Specific [place] 1.013 (1.003-1.030) 11/27/21 Unknown Urine Protein <15 mg/dl mg/dL (Negative) 11/27/21 Unknown Urine Glucose (UA) 50 mg/dL (Negative) 11/27/21 Unknown Urine Ketones Tr mg/dL (Negative) 11/27/21 Unknown Urine Blood Neg (Negative) 11/27/21 Unknown Urine Nitrite Neg (Negative) 11/27/21 Unknown Urine Bilirubin Neg (Negative) 11/27/21 Unknown Urine Urobilinogen < 2.0 mg/dL (<2.0) 11/27/21 Unknown Ur Leukocyte Esterase Neg (Negative) 11/27/21 Unknown Urine WBC (Auto) 13.0 /HPF (0.0-6.0) H 11/27/21 Unknown Urine RBC (Auto) 2.0 /HPF (0.0-6.0) 11/27/21 Unknown U Epithel Cells (Auto) 1.0 /HPF (0-13.0) 11/27/21 Unknown Urine Bacteria (Auto) 1+ /HPF (Negative) 11/27/21 Unknown Urine Mucus Few /HPF 11/27/21 Unknown Urine Yeast (Budding) 2+ /HPF 11/27/21 Unknown Urine Creatinine 80.9 mg/dL (0.1-20.0) H 11/27/21 Unknown Urine Sodium 36 mmol/L 11/27/21 Unknown Urine Total Protein 43 mg/dL (5-11.8) H 11/27/21 Unknown Coronavirus (PCR) Positive (Negative) A 11/23/21 Unknown Microbiology: Microbiology 11/27/21 Unknown Urine,Clean Catch Urine Culture - Final Natalia Albicans Fritz/IV: Voiding Method Incontinent Active Medications - Current Medications Current Medications: Generic Name Dose Route Start Last Admin Trade Name Freq PRN Reason Stop Dose Admin Acetaminophen 650 mg 11/22/21 05:48 Acetaminophen 325 Mg Tab PO Q4H PRN Pain MILD(1-3)/Fever >100.5/BRODY Albuterol 2.5 mg 11/25/21 12:00 Albuterol 2.5 Mg/3 Ml Nebu IH Q4HRT PRN Shortness Of Breath Dexamethasone 6 mg 11/26/21 12:00 11/30/21 11:51 Dexamethasone 4 Mg/Ml Vial IV 12/05/21 10:01 6 mg Q24HR NANDINI Administration Dextrose 50 ml 11/22/21 05:48 Dextrose 50% In Water (25gm) 50 Ml Syringe IV Q30MIN PRN Hypoglycemia Protocol Docusate Sodium 100 mg 11/25/21 22:00 11/30/21 11:50 Docusate Sodium 100 Mg Cap PO 100 mg BID NANDINI Administration Enoxaparin Sodium 70 mg 11/26/21 12:30 11/30/21 11:50 Enoxaparin 80 Mg/0.8 Ml Inj SUB-Q 70 mg Q12HR NANDINI Administration Fluconazole 100 mg 11/29/21 15:00 11/29/21 17:36 Fluconazole 100 Mg Tab PO 12/03/21 15:01 100 mg Q24H NANDINI Administration Protocol Hydralazine HCl 10 mg 11/22/21 05:58 Hydralazine 20 Mg/1 Ml Inj IV Q6H PRN Blood Pressure Hydromorphone HCl 0.5 mg 11/22/21 05:48 11/23/21 06:02 Hydromorphone 1 Mg/1 Ml Inj IV 0.5 mg Q3H PRN Administration Pain , Severe (7-10) Potassium Chloride 20 meq/ 1,010 mls @ 75 mls/hr 11/29/21 15:30 Dextrose IV DIRECT NANDINI Insulin Human Lispro 0 unit 11/22/21 07:30 11/30/21 07:30 Insulin Lispro 100 Unit/Ml SUB-Q 2 unit ACHS NANDINI Administration Protocol Metoprolol Tartrate 12.5 mg 11/30/21 22:00 Metoprolol Tartrate 25 Mg Tab PO BID NANDINI Morphine Sulfate 2 mg 11/22/21 05:48 11/22/21 22:43 Morphine 2 Mg/1 Ml Inj IV 2 mg Q4H PRN Administration Pain, Moderate (4-6) Ondansetron HCl 4 mg 11/22/21 05:48 Ondansetron 4 Mg/2 Ml Inj IV Q8H PRN Nausea And Vomiting Sodium Chloride 10 ml 11/22/21 10:00 11/30/21 11:51 Sodium Chloride 0.9% 10 Ml Flush Syringe IV 10 ml BID NANDINI Administration Sodium Chloride 10 ml 11/22/21 05:48 Sodium Chloride 0.9% 10 Ml Flush Syringe IV PRN PRN LINE FLUSH Nutrition/Malnutrition Assess - Dietary Evaluation Nutrition/Malnutrition Findings: Nutrition Notes Start: 11/22/21 14:16 Freq: Status: Active Protocol: Document 11/27/21 09:32 NICKO (Rec: 11/27/21 09:53 NICKO [id number]) Nutrition Notes Initial or Follow up Brief Note Current Diet Cardiac Consistent Carbohydrates Diet (since B ), D Suppl (L 11/27). Height 5 ft 11 in Weight 68.8 kg [place] Body Weight (kg) 78.18 BMI 21.1 Weight change and time frame 5.3 Kg body weight gain in 5 days reported. Weight Status Underweight Subjective/Other Information RD consult for routine F/U on %PO intake of meals and ONS. No report available on %PO intake of meals at the time, last from 11/23, was at 50%. Increase Dietary Supplements to TID. Change to Glucerna to support Diabetes control. ROSANA is improving, according to Progress notes. Percent of energy/protein needs met: Prescribed Cardiac/Consistent Carbohydrates Diet provides for energy/protein needs (1, 977 Kcal/86 g) during LOS; additionally, Dietary Supplements will compensate for possible Poor PO intake of meals with 660 Kcal and 30 g of protein. Current % PO Fair (50-74%) #1 Nutrition Diagnosis Underweight Diagnosis Progress(for reassessment Continues documentation) Nutrition Intervention Change Diet Order: Continue Cardiac Consistent Carbohydrates Diet. Add Supplement/Snack (indicate name/kcal 8 fl oz Glucerna; TID /protein ) Provides kCal: 660 Provides Protein (gm) 30 Goal #1 Compensate, through dietary supplementation, for possible poor or insufficient PO intake of meals during LOS. Follow-Up By: 12/04/21 Additional Comments Continue monitoring food tolerance, %PO intake of meals , and BM.
[2021-11-30] MEDS: FLUCONAZOLE 100 MG TAB PO SCH (18:20)
[2021-11-30] MEDS: METOPROLOL TARTRATE 25 MG TAB PO SCH (21:38)
[2021-12-01 07:37] LABS: Hematocrit 32.5 % (35.5-45.6); Hemoglobin 10.2 gm/dl (11.8-15.2); Mean Corpuscular HGB Conc 32 % (32-34); Mean Corpuscular Volume 96 fl (84-94); Platelet Count 336 K/mm3 (140-440); Red Blood Count 3.39 M/mm3 (3.65-5.03); Red Cell Distribution Width 15.3 % (13.2-15.2)
[2021-12-01 08:04] LABS: BUN/Creatinine Ratio 27; Blood Urea Nitrogen 35 mg/dL (9-20); Calcium 8.6 mg/dL (8.4-10.2); Hemolysis Index 1
[2021-12-01] MEDS ORDERED: DEXTROSE 5% IN WATER 1,000 ML IV SCH (09:00)
--- NOTE | 2021-12-01 09:14 | Progress Note ---
Subjective Date of service: 12/01/21 Principal diagnosis: Acute encephalopathy Interval history: mpression * Nonoliguric acute kidney injury secondary to prerenal azotemia (FeNa 0.5%) --Baseline SCr 13mg/dL * Acute hypoxic respiratory failure secondary to COVID 19 PNA * Severe COVID-19 pneumonia * Hypernatremia * Hypokalemia * Acute encephalopathy * Cardiomyopathy - EF 35% * Anemia * Urinary tract infection - Klebsiella pneumonia * Mild left hydronephrosis Recommendations * Renal function now at baseline * Na is worse today, continue d5w * patient note recieving ivfs as ordered * Continue to hold MIREYA inhibitor/ARB at this time * Encourage free water intake * Management of COVID-19 PNA per ID and primary team * Abx per ID * Maintain MAP >65 * Avoid potential nephrotoxins * Monitor lytes, fluid balance closely * Strict I/O Subjective Principal diagnosis: Acute encephalopathy Interval history: Patient has no complaints. No acute events overnight Objective - General Appearance exam deferred, primary team exam noted Objective - Vital Signs Vital signs: Vital Signs - 12hr 11/30/21 11/30/21 12/01/21 21:38 22:00 02:45 Temperature Pulse Rate 51 L Respiratory Rate Blood Pressure 146/58 O2 Sat by Pulse 90 95 Oximetry 12/01/21 05:38 Temperature 98.5 F Pulse Rate 52 L Respiratory 18 Rate Blood Pressure 115/55 O2 Sat by Pulse 87 Oximetry - Lab 12/01/21 06:47 12/01/21 06:47 Most recent lab results Calcium 8.6 mg/dL (8.4-10.2) 12/01/21 06:47 Urine Creatinine 80.9 mg/dL (0.1-20.0) H 11/27/21 Unknown Urine Sodium 36 mmol/L 11/27/21 Unknown Urine Total Protein 43 mg/dL (5-11.8) H 11/27/21 Unknown Medications & Allergies - Medications Allergies/Adverse Reactions: Allergies No Known Allergies Allergy (Verified 11/22/21 05:55) Home Medications: Home Medications Medication Instructions Recorded Confirmed Last Taken Type Furosemide [Lasix TAB] 80 mg PO TID 11/24/21 11/24/21 Unknown History Gabapentin [Neurontin] 300 mg PO BID 11/24/21 11/27/21 11/19/21 09:12 History 300 mg Sacubitril/Valsartan [Entresto 1 tab PO BID 11/24/21 11/27/21 11/19/21 09:12 Hi story 49-51 mg] 1 tab Spironolactone [Aldactone] 25 mg PO QDAY 11/24/21 11/27/21 11/19/21 09:12 History 25 mg Tamsulosin [Flomax] 0.4 mg PO QDAY 11/24/21 11/27/21 11/18/21 22:02 History 0.4 mg carvediloL [Coreg] 6.25 mg PO BID 11/24/21 11/27/21 11/19/21 09:12 History 6.25mg AtorvaSTATin [Lipitor] 40 mg PO QHS 11/27/21 11/27/21 11/19/21 09:12 History 40 mg Insulin Glargine,Hum.rec.anlog 12 unit SQ QHS 11/27/21 11/27/21 11/18/21 22:02 History [Lantus Solostar] 12 units Insulin Lispro [Admelog] 1 - 12 unit SQ TIDAC 11/27/21 11/27/21 11/19/21 08:32 History 6 units Insulin Lispro [Admelog] 4 unit SQ TID 11/27/21 11/27/21 11/19/21 08:33 History 4 units oxyCODONE /ACETAMINOPHEN [Percocet 1 tab PO Q6HR PRN 11/27/21 11/27/21 11/19/21 03:57 History 5/325] 1 tab Active Medications: Generic Name Dose Route Start Last Admin Trade Name Freq PRN Reason Stop Dose Admin Acetaminophen 650 mg 11/22/21 05:48 Acetaminophen 325 Mg Tab PO Q4H PRN Pain MILD(1-3)/Fever >100.5/BRODY Albuterol 2.5 mg 11/25/21 12:00 Albuterol 2.5 Mg/3 Ml Nebu IH Q4HRT PRN Shortness Of Breath Dexamethasone 6 mg 11/26/21 12:00 11/30/21 11:51 Dexamethasone 4 Mg/Ml Vial IV 12/05/21 10:01 6 mg Q24HR NANDINI Administration Dextrose 50 ml 11/22/21 05:48 Dextrose 50% In Water (25gm) 50 Ml Syringe IV Q30MIN PRN Hypoglycemia Protocol Docusate Sodium 100 mg 11/25/21 22:00 11/30/21 21:30 Docusate Sodium 100 Mg Cap PO 100 mg BID NANDINI Administration Enoxaparin Sodium 70 mg 11/26/21 12:30 11/30/21 21:30 Enoxaparin 80 Mg/0.8 Ml Inj SUB-Q 70 mg Q12HR NANDINI Administration Fluconazole 100 mg 11/29/21 15:00 11/30/21 18:20 Fluconazole 100 Mg Tab PO 12/03/21 15:01 100 mg Q24H [facility] Administration Protocol Hydralazine HCl 10 mg 11/22/21 05:58 Hydralazine 20 Mg/1 Ml Inj IV Q6H PRN Blood Pressure Hydromorphone HCl 0.5 mg 11/22/21 05:48 11/23/21 06:02 Hydromorphone 1 Mg/1 Ml Inj IV 0.5 mg Q3H PRN Administration Pain , Severe (7-10) Potassium Chloride 20 meq/ 1,010 mls @ 75 mls/hr 11/29/21 15:30 Dextrose IV DIRECT [facility] Insulin Human Lispro 0 unit 11/22/21 07:30 11/30/21 21:43 Insulin Lispro 100 Unit/Ml SUB-Q 3 unit ACHS [facility] Administration Protocol Metoprolol Tartrate 12.5 mg 11/30/21 22:00 11/30/21 21:38 Metoprolol Tartrate 25 Mg Tab PO Not Given BID [facility] Morphine Sulfate 2 mg 11/22/21 05:48 11/22/21 22:43 Morphine 2 Mg/1 Ml Inj IV 2 mg Q4H PRN Administration Pain, Moderate (4-6) Ondansetron HCl 4 mg 11/22/21 05:48 Ondansetron 4 Mg/2 Ml Inj IV Q8H PRN Nausea And Vomiting Sodium Chloride 10 ml 11/22/21 10:00 11/30/21 21:31 Sodium Chloride 0.9% 10 Ml Flush Syringe IV 10 ml BID NANDINI Administration Sodium Chloride 10 ml 11/22/21 05:48 Sodium Chloride 0.9% 10 Ml Flush Syringe IV PRN PRN LINE FLUSH
[2021-12-01] MEDS: dexAMETHasone 4 MG/ML VIAL IV SCH (10:00)
[2021-12-01] MEDS: METOPROLOL TARTRATE 25 MG TAB PO SCH ×2 (10:00→21:43)
[2021-12-01] MEDS: DOCUSATE SODIUM 100 MG CAP PO SCH ×2 (10:00→21:43)
[2021-12-01] MEDS: ENOXAPARIN 80 MG/0.8 ML INJ SUB-Q SCH ×2 (10:00→21:44)
[2021-12-01] MEDS: INSULIN LISPRO 100 UNIT/ML SUB-Q SCH ×4 (10:01→21:46)
[2021-12-01] MEDS: POTASSIUM CHLORIDE 20 MEQ in DEXTROSE 5% IN WATER 1,000 ML IV SCH (11:03)
--- NOTE | 2021-12-01 11:10 | Progress Note ---
Subjective Date of service: 12/01/21 Principal diagnosis: Acute encephalopathy Interval history: 81-year-old male with past medical history of hypertension and diabetes was brought to the emergency room in by family due to altered mental status/confusion. Patient discharged from [facility] 2 days ago and has been confused since then. The did not know why he was in the hospital to begin with. Allegedly, before he went to the hospital he was able to have a cogent conversation and was ambulatory. Now, apparently he cannot support his own weight. He is confused and cannot carry a cogent conversation. Labs revealed several mild abnormalities including ROSANA with mildly elevated creatinine and hypokalemia with potassium of 3.2. There is no leukocytosis or anemia. Urinalysis shows UTI. Initial CT scan of the head shows no acute intracranial abnormality November 24, 20192019 More alert and oriented Unable to give history Discussed with family and daughter They want long-term care 11/25: Patient seen and examined this morning noted on high flow oxygen unsure when she became toxic. Nevertheless pulmonary and ID consult patient started on steroid therapy. Will likely need remdesivir if renal function continues to show improvement We will also give Fleet enema just no documented bowel movement at this time. On CT imaging shows a large fecal material in the rectum. Called and updated Cade Pena, daughter, 11/26: Patient remains hypoxic and on high flow was weaned down to 90% at 35L discussed with nursing staff to inform respiratory therapist saturation was 96% we will continue to monitor. Will change to full dose anticoagulation at this time I am unable to get a CTA of the chest due to acute kidney injury. We will give gentle hydration as chest examination revealed clear auscultation sounds bilaterally. ID input noted continue steroids remdesivir initiated. Mild UTI noted, patient had been treated with ceftriaxone. Continue to monitor mental status for improvement CT of the head was negative. Discussed with nursing staff patient did have 2 large bowel movements yesterday. Altered mental status remains a mystery I will try to obtain records from [place] to further understand why the patient was in the hospital other place at the time 11/27: Patient seen and examined, improving some, continue current management with steroids and recently initiated remdesivir. Automatic [employer] consulted to assist us with renal function wean oxygen as tolerated. still some confusion, Called the daughter to get Clarification on the discussion with the nursing about ventilator. it was a very contentious discussion as she did not want to address the issue "stating I do not want to put that on the universe" someone else got on the phone and had discussion with the daughter including asking why he left the other hospital finally the all agreed that God forbid "something happen- you have to revive him" 11/28: Patient shows some clinical improvement with oxygen demand is down to 60% FiO2 we will see if we can wean him any further today. Possibly be able to discharge in 24 to 48 hours but will likely need 2 to 4 L of oxygen nasal cannula on discharge otherwise continue current management. Renal function is stable. Beta-tee still on hold due to bradycardia. 11/29: Continue supportive care continue high flow oxygen continue monitoring mental status waxing and waning likely secondary to underlying dementia. Noted hypokalemia will replace creatinine is improving. Continue current management and remdesivir wean oxygen as tolerated FiO2 is down to 50%. 11/30: Patient is an 81-year-old male with history of hypertension diabetes mellitus came into the hospital following being found by family with altered mental status and confusion apparently was diagnosed with COVID-19 at [facility] but left AGAINST MEDICAL ADVICE. It appears that the confusion had been ongoing for some reason the family brought the patient here to the hospital was noted to have acute kidney injury with hyperkalemia which has since been improving also acute cystitis and UTI and of course the COVID-19 for which he has decompensated significantly and is currently on steroid therapy. Remdesivir is precluded due to his renal function. Have discussed with case management that if he cannot be weaned off high flow he may benefit from going to an LTAC. He remains on restraints due to his intermittent confusion. While he had a CT of the head which was negative an MRI has not been done due to oxygen demand but since he has been weaned down some we will go ahead and order an MRI for clarity. 12/01 chronically ill looking male, awake but confused and does not respond to any questions. Lab results reviewed. Nephrology and cardiology notes reviewed He is on high flow at 20 L and 35% FiO2 # Acute metabolic encephalopathy Current Visit: Yes Status: Acute Plan to address problem: Patient is still confused Baseline mental status is not known Unable to give much history Discussed with daughter Daughters number on case management notes # acute hypoxic respiratory failure secondary to COVID-19 Patient is on high flow nasal cannula with 20 L and 35% FiO2 with oxygen saturation of 93 to 94% Pulmonary consulted and note reviewed Continue weaning as tolerated Proning as tolerated #COVID-19 pneumonia Not a candidate for remdesivir Continue Decadron-stop date 12/05 #diabetes Plan to address problem: Blood sugar coverage Long-acting insulin started at 10 units #Hypertension Current Visit: Yes Status: Acute Plan to address problem: Hydralazine 10 mg IV every 6 hours as needed. We will monitor the blood pressure closely # ROSANA (acute kidney injury) secondary to vasomotor nephropathy Current Visit: Yes Status: Acute Plan to address problem: Patient still has prerenal azotemia Nephrology consulted and note reviewed Continue IV fluids per nephrology recommendations # Hypokalemia Current Visit: Yes Status: Acute Plan to address problem: Lab results reviewed Serum potassium 3.1 Patient is on IV fluids with potassium supplements Continue management per nephrology recommendations Monitor electrolytes Hypernatremia Serum sodium increased to 164 this morning Nephrology consulted and note reviewed Continue IV fluids Monitor electrolytes # Urinary tract infection Current Visit: Yes Status: Acute Plan to address problem: Completed IV antibiotic therapy Urine cultures negative for bacteria and positive for Natalia Blood cultures-no growth # Constipation Continue stool softener CAD Cardiomyopathy Chronic HFrEF Cardiology note reviewed EF 35 to 40% Continue low-dose beta-tee Bradycardia Heart rate in the low low 50s Likely secondary to beta-tee Await follow-up by cardiology Hyperglycemia Continue insulin sliding scale coverage PAF?- not on OAC as OP. Currently anticoagulated on Lovenox #DVT prophylaxis Current Visit: Yes Status: Acute Plan to address problem: Patient is a full code # severe debility Physical therapy and Occupational Therapy tomorrow Objective - Constitutional Vitals: Vital Signs - 12hr 12/01/21 12/01/21 12/01/21 02:45 05:38 08:12 Temperature 98.5 F 98.8 F Pulse Rate 52 L 53 L Respiratory 18 19 Rate Blood Pressure 115/55 146/71 O2 Sat by Pulse 95 87 92 Oximetry General appearance: Present: no acute distress, other (Confused, not responding to questions. ill looking) - EENT Eyes: PERRL, EOM intact - Neck Neck: supple, normal ROM - Respiratory Respiratory effort: normal Respiratory: bilateral: diminished - Cardiovascular Rhythm: irregularly irregular Extremities: No edema - Gastrointestinal General gastrointestinal: Present: soft, non-tender Rectal Exam: deferred - Genitourinary Male genitourinary: deferred - Neurologic Neurologic: moves all extremities - Psychiatric Psychiatric: other (Confused., Has restraints) - Labs CBC & Chem 7: 12/01/21 06:47 12/01/21 06:47 Labs: Abnormal lab results 11/30/21 11/30/21 11/30/21 Range/Units 11:23 15:55 21:28 RBC (3.65-5.03) M/mm3 Hgb (11.8-15.2) gm/dl Hct (35.5-45.6) % MCV (84-94) fl RDW (13.2-15.2) % Sodium (137-145) mmol/L Potassium (3.6-5.0) mmol/L Chloride (98-107) mmol/L BUN (9-20) mg/dL Glucose (75-100) mg/dL POC Glucose 180 H 184 H 214 H (70-105) mg/dL 12/01/21 12/01/21 12/01/21 Range/Units 06:47 06:47 07:51 RBC 3.39 L (3.65-5.03) M/mm3 Hgb 10.2 L (11.8-15.2) gm/dl Hct 32.5 L (35.5-45.6) % MCV 96 H (84-94) fl RDW 15.3 H (13.2-15.2) % Sodium 164 H* D (137-145) mmol/L Potassium 3.1 L (3.6-5.0) mmol/L Chloride 122.5 H (98-107) mmol/L BUN 35 H (9-20) mg/dL Glucose 200 H (75-100) mg/dL POC Glucose 174 H (70-105) mg/dL
--- NOTE | 2021-12-01 12:26 | Progress Note ---
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 Currently anticoagulated on Lovenox COPD DM Echo 11/27/2021- EF 40 to 45%, mild global hypokinesis of left ventricle. Right ventricular systolic function is normal. Mild aortic regurgitation. Trace tricuspid and pulmonic regurgitation Echo 12/01/2020- LVEF 35 - 40%. LV systolic function is moderately decreased,Grade I (mild) diastolic dysfunction. There were technical limitations during this study due to patient positioning and patient body habitus. Poor views unable to evaluate any of the valves PET Stress 01/31/2021- Abnormal pharmacological PET stress test. There is a small sized mild to moderate intensity partially reversible perfusion defect seen in the apical inferior wall consistent with infarct/scar and a small amount of ischemia. SSS 3, SRS 1, SDS 2. TID 0.84(normal).Severely depressed resting LV systolic function with a calculated LVEF 22% at rest which increased to 29% with peak stress. Global LV hypokinesis. Coronary calcifications were not seen by chest CT, however CT for attenuation correction is not sensitive. Stress ECG was negative for ischemia. No symptoms of chest pain with vasodilator stress Outpatient medications: Coreg 6.25 mg p.o. twice daily atorvastatin 40 mg p.o. nightly, spironolactone 25 mg p.o. daily, Entresto 49-51 mg p.o. twice daily, Lasix 80 mg p.o. 3 times daily Plan: Per documentation patient has a history of A. fib unclear as to why patient is not on anticoagulation as an outpatient. However patient is currently anticoagulated on Lovenox Patient noncompliant with monitor previously sinus bradycardia 50s on monitor No MIREYA or ARB due to elevated creatinine per nephrology recs Will hold statin therapy due to elevated liver enzymes Continue present management Patient seen in conjunction with Dr. Javier who agrees with this plan of care - Patient Problems (1) Sinus bradycardia Current Visit: Yes Status: Acute (2) COVID-19 Current Visit: Yes Status: Acute (3) ROSANA (acute kidney injury) Current Visit: Yes Status: Acute (4) Acute metabolic encephalopathy Current Visit: Yes Status: Acute (5) Metabolic encephalopathy Current Visit: Yes Status: Acute Subjective Date of service: 12/01/21 Principal diagnosis: Acute encephalopathy Interval history: Patient sitting in bed on high flow NC. Patient remains altered Patient noncompliant with monitor previously sinus bradycardia's fifties with PVCs Objective Vital Signs Temp Pulse Resp BP Pulse Ox 12/01/21 08:12 98.8 F 53 L 19 146/71 92 12/01/21 05:38 98.5 F 52 L 18 115/55 87 12/01/21 02:45 95 11/30/21 22:00 90 11/30/21 21:38 51 L 146/58 11/30/21 20:27 96 11/30/21 20:14 98.2 F 51 L 18 145/58 98 11/30/21 15:25 97 - Physical Examination General: Other (AMS) HEENT: Positive: PERRL, Mucus Membranes Dry Neck: Positive: trachea midline Cardiac: Positive: Regular Rhythm, Bradycardia Lungs: Positive: Decreased Breath Sounds Neuro: Positive: Grossly Intact Abdomen: Positive: Soft Skin: Negative: Rash, Suspicious Lesions, Ulceration Extremities: Present: upper extr. pulses. Absent: edema - Labs and Meds CBC 12/01/21 Range/Units 06:47 WBC 6.4 (4.5-11.0) K/mm3 RBC 3.39 L (3.65-5.03) M/mm3 Hgb 10.2 L (11.8-15.2) gm/dl Hct 32.5 L (35.5-45.6) % Plt Count 336 (140-440) K/mm3 Comprehensive Metabolic Panel 12/01/21 Range/Units 06:47 Sodium 164 H* D (137-145) mmol/L Potassium 3.1 L (3.6-5.0) mmol/L Chloride 122.5 H (98-107) mmol/L Carbon Dioxide 27 (22-30) mmol/L BUN 35 H (9-20) mg/dL Creatinine 1.3 (0.8-1.3) mg/dL Glucose 200 H (75-100) mg/dL Calcium 8.6 (8.4-10.2) mg/dL - Imaging and Cardiology Echo: report reviewed - Telemetry EKG Rhythm: Sinus Bradycardia - EKG Sinus rhythms and dysrhythmias: sinus rhythm, sinus bradycardia
[2021-12-01] MEDS ORDERED: LORazepam 2 MG/ML VIAL IV ONE (14:02)
--- NOTE | 2021-12-01 14:14 | Progress Note ---
Assessment and Plan 81 y/o male with acute respiratory failure likely secondary to COVID but also could be from volume overload, with renal failure and Kleibsiella UTI. 12/01/21: I/O has not bee accurate since Wednesday. unsure off fluid balance. Renal and cards following so will defer to them. Continue to wean FiO2 for sats >88%. Negative fluid balance would help with oxygenation. 11/28/21: Please continue net negative state daily as this has really helped with oxygen requirement. Wean FiO2 for sats >88% 11/27/21: Prone as tolerated. Wean FiO2 for sats >88%. Suggest daily net negative state if bp and renal function will allow. Cards now following, defer diuresis to them. Appreciate ID note. Continue steroids and remdesivir. ID considering actemra, awaiting repeat CRP 1. ID-Was on rocephin in [place], then was discharged on levaquin for 2 days. Kleb is resistant to ampicillin bactrim and tetracycline. Was sensitive to everything else. ID following. not currently on abx. Has been afebile no white count 2. Pulm- acute respiratory failure with worsening while in house. Could be all related to COVID but given his history of systolic CHF, could be volume related as well as it was so acute after a couple days of IV hydration. If renal function and bp would allow, would attempt some yennifer IV diuresis. Prone given COVID and agree with steroids and Remdesivir. 3. Guarded prognosis, will continue to follow Subjective Date of service: 12/01/21 Principal diagnosis: Acute encephalopathy Interval history: no acute events. Per chart, to get MRI today. Patient confused. Sat is good on 20 liters and 35%. REmainder is negative. Objective Vital Signs - 12hr 12/01/21 12/01/21 12/01/21 02:45 05:38 08:12 Temperature 98.5 F 98.8 F Pulse Rate 52 L 53 L Respiratory 18 19 Rate Blood Pressure 115/55 146/71 O2 Sat by Pulse 95 87 92 Oximetry 12/01/21 12/01/21 10:00 12:46 Temperature 98.3 F Pulse Rate 57 L Respiratory 16 Rate Blood Pressure 135/70 O2 Sat by Pulse 99 94 Oximetry Constitutional: no acute distress, alert, other (confused) Eyes: non-icteric ENT: oropharynx moist Neck: supple Effort: normal Ascultation: Bilateral: diminished breath sounds Cardiovascular: regular rate and rhythm Gastrointestinal: normoactive bowel sounds, soft, non-tender, non-distended CBC and BMP: 12/01/21 06:47 12/01/21 06:47 ABG, PT/INR, D-dimer: PT/INR, D-dimer D-Dimer 1279.46 ng/mlDDU (0-234) H 11/26/21 16:44 Abnormal lab findings: Abnormal Labs 11/21/21 11/21/21 11/21/21 19:36 19:36 19:37 WBC RBC 3.56 L Hgb 10.8 L Hct 34.1 L MCV 96 H MCHC RDW 15.3 H Lymph % (Auto) Carbon % (Auto) Lymph # (Auto) Seg Neutrophils % Seg Neuts % (Manual) 79.0 H Lymphocytes % (Manual) 10.0 L Monocytes % (Manual) 8.0 H Basophils % (Manual) 3.0 H Seg Neutrophils # Lymphocytes # (Manual) 0.7 L Basophils # (Manual) 0.2 H D-Dimer Sodium Potassium 3.2 L Chloride BUN 23 H Creatinine 1.4 H Glucose 210 H POC Glucose Uric Acid Calcium 8.2 L AST 45 H Alkaline Phosphatase 133 H Ammonia C-Reactive Protein Total Protein Albumin 3.0 L TSH Urine WBC (Auto) 48.0 H Urine Creatinine Urine Total Protein Coronavirus (PCR) 11/21/21 11/22/21 11/22/21 19:37 11:52 15:52 WBC RBC Hgb Hct MCV MCHC RDW Lymph % (Auto) Carbon % (Auto) Lymph # (Auto) Seg Neutrophils % Seg Neuts % (Manual) Lymphocytes % (Manual) Monocytes % (Manual) Basophils % (Manual) Seg Neutrophils # Lymphocytes # (Manual) Basophils # (Manual) D-Dimer Sodium Potassium Chloride BUN Creatinine Glucose POC Glucose 144 H 194 H Uric Acid Calcium AST Alkaline Phosphatase Ammonia C-Reactive Protein Total Protein Albumin TSH 4.800 H Urine WBC (Auto) Urine Creatinine Urine Total Protein Coronavirus (PCR) 11/22/21 11/23/21 11/23/21 20:42 04:48 04:48 WBC RBC 3.22 L Hgb 9.8 L Hct 30.9 L MCV 96 H MCHC RDW Lymph % (Auto) Carbon % (Auto) 9.4 H Lymph # (Auto) 1.1 L Seg Neutrophils % 76.5 H Seg Neuts % (Manual) Lymphocytes % (Manual) Monocytes % (Manual) Basophils % (Manual) Seg Neutrophils # Lymphocytes # (Manual) Basophils # (Manual) D-Dimer Sodium Potassium 3.1 L Chloride BUN 24 H Creatinine Glucose 112 H POC Glucose 155 H Uric Acid Calcium 8.1 L AST Alkaline Phosphatase Ammonia C-Reactive Protein Total Protein Albumin TSH Urine WBC (Auto) Urine Creatinine Urine Total Protein Coronavirus (PCR) 11/23/21 11/23/21 11/23/21 08:03 12:24 16:37 WBC RBC Hgb Hct MCV MCHC RDW Lymph % (Auto) Carbon % (Auto) Lymph # (Auto) Seg Neutrophils % Seg Neuts % (Manual) Lymphocytes % (Manual) Monocytes % (Manual) Basophils % (Manual) Seg Neutrophils # Lymphocytes # (Manual) Basophils # (Manual) D-Dimer Sodium Potassium Chloride BUN Creatinine Glucose POC Glucose 111 H 106 H 112 H Uric Acid Calcium AST Alkaline Phosphatase Ammonia C-Reactive Protein Total Protein Albumin TSH Urine WBC (Auto) Urine Creatinine Urine Total Protein Coronavirus (PCR) 11/23/21 11/23/21 11/24/21 20:45 Unknown 11:47 WBC RBC Hgb Hct MCV MCHC RDW Lymph % (Auto) Carbon % (Auto) Lymph # (Auto) Seg Neutrophils % Seg Neuts % (Manual) Lymphocytes % (Manual) Monocytes % (Manual) Basophils % (Manual) Seg Neutrophils # Lymphocytes # (Manual) Basophils # (Manual) D-Dimer Sodium Potassium Chloride BUN Creatinine Glucose POC Glucose 179 H 142 H Uric Acid Calcium AST Alkaline Phosphatase Ammonia C-Reactive Protein Total Protein Albumin TSH Urine WBC (Auto) Urine Creatinine Urine Total Protein Coronavirus (PCR) Positive A 11/24/21 11/24/21 11/25/21 18:09 20:52 05:27 WBC RBC 3.22 L Hgb 9.6 L Hct 31.1 L MCV 97 H MCHC 31 L RDW 15.6 H Lymph % (Auto) 10.5 L Carbon % (Auto) Lymph # (Auto) 1.1 L Seg Neutrophils % 82.0 H Seg Neuts % (Manual) Lymphocytes % (Manual) Monocytes % (Manual) Basophils % (Manual) Seg Neutrophils # 8.7 H Lymphocytes # (Manual) Basophils # (Manual) D-Dimer Sodium Potassium Chloride BUN Creatinine Glucose POC Glucose 107 H 209 H Uric Acid Calcium AST Alkaline Phosphatase Ammonia C-Reactive Protein Total Protein Albumin TSH Urine WBC (Auto) Urine Creatinine Urine Total Protein Coronavirus (PCR) 11/25/21 11/25/21 11/25/21 05:27 05:27 13:43 WBC RBC Hgb Hct MCV MCHC RDW Lymph % (Auto) Carbon % (Auto) Lymph # (Auto) Seg Neutrophils % Seg Neuts % (Manual) Lymphocytes % (Manual) Monocytes % (Manual) Basophils % (Manual) Seg Neutrophils # Lymphocytes # (Manual) Basophils # (Manual) D-Dimer Sodium 146 H Potassium Chloride 108.2 H BUN Creatinine Glucose 145 H 191 H POC Glucose Uric Acid Calcium 7.8 L AST 67 H Alkaline Phosphatase Ammonia C-Reactive Protein 25.00 H Total Protein 5.1 L D Albumin 2.5 L TSH Urine WBC (Auto) Urine Creatinine Urine Total Protein Coronavirus (PCR) 11/25/21 11/26/21 11/26/21 18:16 05:00 08:01 WBC RBC Hgb Hct MCV MCHC RDW Lymph % (Auto) Carbon % (Auto) Lymph # (Auto) Seg Neutrophils % Seg Neuts % (Manual) Lymphocytes % (Manual) Monocytes % (Manual) Basophils % (Manual) Seg Neutrophils # Lymphocytes # (Manual) Basophils # (Manual) D-Dimer Sodium Potassium Chloride BUN 28 H Creatinine 1.7 H Glucose 236 H POC Glucose 149 H 206 H Uric Acid Calcium 7.8 L AST 51 H Alkaline Phosphatase 233 H Ammonia C-Reactive Protein Total Protein 5.9 L Albumin 2.3 L TSH Urine WBC (Auto) Urine Creatinine Urine Total Protein Coronavirus (PCR) 11/26/21 11/26/21 11/26/21 08:21 11:09 16:37 WBC RBC Hgb Hct MCV MCHC RDW Lymph % (Auto) Carbon % (Auto) Lymph # (Auto) Seg Neutrophils % Seg Neuts % (Manual) Lymphocytes % (Manual) Monocytes % (Manual) Basophils % (Manual) Seg Neutrophils # Lymphocytes # (Manual) Basophils # (Manual) D-Dimer Sodium Potassium Chloride BUN 28 H Creatinine 1.5 H Glucose POC Glucose 198 H 154 H Uric Acid Calcium AST Alkaline Phosphatase Ammonia C-Reactive Protein Total Protein Albumin TSH Urine WBC (Auto) Urine Creatinine Urine Total Protein Coronavirus (PCR) 11/26/21 11/26/21 11/27/21 16:44 22:20 05:17 WBC 14.0 H RBC 3.12 L Hgb 9.1 L Hct 29.3 L MCV MCHC 31 L RDW Lymph % (Auto) Carbon % (Auto) Lymph # (Auto) Seg Neutrophils % Seg Neuts % (Manual) Lymphocytes % (Manual) Monocytes % (Manual) Basophils % (Manual) Seg Neutrophils # Lymphocytes # (Manual) Basophils # (Manual) D-Dimer 1279.46 H Sodium Potassium Chloride BUN Creatinine Glucose POC Glucose 173 H Uric Acid Calcium AST Alkaline Phosphatase Ammonia C-Reactive Protein Total Protein Albumin TSH Urine WBC (Auto) Urine Creatinine Urine Total Protein Coronavirus (PCR) 11/27/21 11/27/21 11/27/21 05:17 05:17 11:22 WBC RBC Hgb Hct MCV MCHC RDW Lymph % (Auto) Carbon % (Auto) Lymph # (Auto) Seg Neutrophils % Seg Neuts % (Manual) Lymphocytes % (Manual) Monocytes % (Manual) Basophils % (Manual) Seg Neutrophils # Lymphocytes # (Manual) Basophils # (Manual) D-Dimer Sodium 147 H Potassium Chloride 107.3 H BUN 37 H Creatinine 1.6 H Glucose 197 H POC Glucose 185 H Uric Acid Calcium 8.1 L AST Alkaline Phosphatase 211 H Ammonia C-Reactive Protein 13.00 H Total Protein 5.6 L Albumin 2.5 L TSH Urine WBC (Auto) Urine Creatinine Urine Total Protein Coronavirus (PCR) 11/27/21 11/27/21 11/27/21 17:35 21:12 Unknown WBC RBC Hgb Hct MCV MCHC RDW Lymph % (Auto) Carbon % (Auto) Lymph # (Auto) Seg Neutrophils % Seg Neuts % (Manual) Lymphocytes % (Manual) Monocytes % (Manual) Basophils % (Manual) Seg Neutrophils # Lymphocytes # (Manual) Basophils # (Manual) D-Dimer Sodium Potassium Chloride BUN Creatinine Glucose POC Glucose 144 H 127 H Uric Acid Calcium AST Alkaline Phosphatase Ammonia C-Reactive Protein Total Protein Albumin TSH Urine WBC (Auto) 13.0 H Urine Creatinine Urine Total Protein Coronavirus (PCR) 11/27/21 11/27/21 11/28/21 Unknown Unknown 06:47 WBC RBC Hgb Hct MCV MCHC RDW Lymph % (Auto) Carbon % (Auto) Lymph # (Auto) Seg Neutrophils % Seg Neuts % (Manual) Lymphocytes % (Manual) Monocytes % (Manual) Basophils % (Manual) Seg Neutrophils # Lymphocytes # (Manual) Basophils # (Manual) D-Dimer Sodium 148 H Potassium 3.4 L Chloride 107.4 H BUN 43 H Creatinine 1.6 H Glucose 226 H POC Glucose Uric Acid 9.8 H Calcium 8.3 L AST Alkaline Phosphatase 197 H Ammonia C-Reactive Protein Total Protein 5.6 L Albumin 2.5 L TSH Urine WBC (Auto) Urine Creatinine 80.9 H Urine Total Protein 43 H Coronavirus (PCR) 11/28/21 11/28/21 11/28/21 07:28 11:52 12:59 WBC RBC Hgb Hct MCV MCHC RDW Lymph % (Auto) Carbon % (Auto) Lymph # (Auto) Seg Neutrophils % Seg Neuts % (Manual) Lymphocytes % (Manual) Monocytes % (Manual) Basophils % (Manual) Seg Neutrophils # Lymphocytes # (Manual) Basophils # (Manual) D-Dimer Sodium Potassium Chloride BUN Creatinine Glucose POC Glucose 192 H 210 H Uric Acid Calcium AST Alkaline Phosphatase Ammonia 12.0 L C-Reactive Protein Total Protein Albumin TSH Urine WBC (Auto) Urine Creatinine Urine Total Protein Coronavirus (PCR) 11/28/21 11/28/21 11/29/21 17:44 22:20 05:15 WBC RBC 3.31 L Hgb 9.9 L Hct 31.5 L MCV 95 H MCHC RDW 15.5 H Lymph % (Auto) Carbon % (Auto) Lymph # (Auto) Seg Neutrophils % Seg Neuts % (Manual) Lymphocytes % (Manual) Monocytes % (Manual) Basophils % (Manual) Seg Neutrophils # Lymphocytes # (Manual) Basophils # (Manual) D-Dimer Sodium Potassium Chloride BUN Creatinine Glucose POC Glucose 213 H 163 H Uric Acid Calcium AST Alkaline Phosphatase Ammonia C-Reactive Protein Total Protein Albumin TSH Urine WBC (Auto) Urine Creatinine Urine Total Protein Coronavirus (PCR) 11/29/21 11/29/21 11/29/21 05:15 11:11 15:45 WBC RBC Hgb Hct MCV MCHC RDW Lymph % (Auto) Carbon % (Auto) Lymph # (Auto) Seg Neutrophils % Seg Neuts % (Manual) Lymphocytes % (Manual) Monocytes % (Manual) Basophils % (Manual) Seg Neutrophils # Lymphocytes # (Manual) Basophils # (Manual) D-Dimer Sodium 152 H Potassium 3.2 L Chloride 114.1 H BUN 41 H Creatinine 1.4 H Glucose POC Glucose 149 H 212 H Uric Acid Calcium AST Alkaline Phosphatase Ammonia C-Reactive Protein Total Protein Albumin TSH Urine WBC (Auto) Urine Creatinine Urine Total Protein Coronavirus (PCR) 11/29/21 11/30/21 11/30/21 21:54 07:20 11:23 WBC RBC Hgb Hct MCV MCHC RDW Lymph % (Auto) Carbon % (Auto) Lymph # (Auto) Seg Neutrophils % Seg Neuts % (Manual) Lymphocytes % (Manual) Monocytes % (Manual) Basophils % (Manual) Seg Neutrophils # Lymphocytes # (Manual) Basophils # (Manual) D-Dimer Sodium Potassium Chloride BUN Creatinine Glucose POC Glucose 197 H 150 H 180 H Uric Acid Calcium AST Alkaline Phosphatase Ammonia C-Reactive Protein Total Protein Albumin TSH Urine WBC (Auto) Urine Creatinine Urine Total Protein Coronavirus (PCR) 11/30/21 11/30/21 12/01/21 15:55 21:28 06:47 WBC RBC 3.39 L Hgb 10.2 L Hct 32.5 L MCV 96 H MCHC RDW 15.3 H Lymph % (Auto) Carbon % (Auto) Lymph # (Auto) Seg Neutrophils % Seg Neuts % (Manual) Lymphocytes % (Manual) Monocytes % (Manual) Basophils % (Manual) Seg Neutrophils # Lymphocytes # (Manual) Basophils # (Manual) D-Dimer Sodium Potassium Chloride BUN Creatinine Glucose POC Glucose 184 H 214 H Uric Acid Calcium AST Alkaline Phosphatase Ammonia C-Reactive Protein Total Protein Albumin TSH Urine WBC (Auto) Urine Creatinine Urine Total Protein Coronavirus (PCR) 12/01/21 12/01/21 12/01/21 06:47 07:51 11:01 WBC RBC Hgb Hct MCV MCHC RDW Lymph % (Auto) Carbon % (Auto) Lymph # (Auto) Seg Neutrophils % Seg Neuts % (Manual) Lymphocytes % (Manual) Monocytes % (Manual) Basophils % (Manual) Seg Neutrophils # Lymphocytes # (Manual) Basophils # (Manual) D-Dimer Sodium 164 H* D Potassium 3.1 L Chloride 122.5 H BUN 35 H Creatinine Glucose 200 H POC Glucose 174 H 170 H Uric Acid Calcium AST Alkaline Phosphatase Ammonia C-Reactive Protein Total Protein Albumin TSH Urine WBC (Auto) Urine Creatinine Urine Total Protein Coronavirus (PCR)
--- NOTE | 2021-12-01 16:12 | Progress Note ---
Assessment and Plan Cultures: 11/21/2021 urine culture: No growth 11/22/2021 blood culture: No growth 11/27/2021 urine culture: Natalia albicans A/P:81-year-old man past medical history hypertension, diabetes #Severe COVID-19 pneumonia: Patient presented with a week of symptoms, chest x- ray with diffuse bilateral infiltrates. Inflammatory markers elevated #Acute hypoxemic respiratory failure: Likely secondary to COVID-19 infection. Weaned from high flow nasal cannula to NC. #Diabetes: tight glycemic control for best outcomes. #Fecal impaction Recommendations: -complete steroids for 10 days -completed remdesivir -Actemra administered 11/27/2021 -Completed 5 days ceftriaxone -Anticoagulation per hospital protocol -No antifungals indicated for candiduria Eliseo Hoang MD, FACP, [facility] ([facility] O: [phone] F: [phone] Subjective Date of service: 12/01/21 Principal diagnosis: Acute encephalopathy Interval history: Afebrile. Hypoxia has improved to nasal cannula requiring 4 L/min. Sodium worse at 164. Objective - Exam Narrative Exam: Physical Exam (reviewed in chart to minimize risk of transmission) Constitutional: deferred Head, Ears, Nose: deferred Eyes: deferred Neck: deferred Oral: deferred Cardiovascular: deferred Respiratory: deferred GI: deferred Musculoskeletal: deferred Skin: deferred Hem/Lymphatic: deferred Psych: deferred Neurological: deferred - Constitutional Vitals: Vital Signs Temp Pulse Resp BP Pulse Ox 98.3 F 57 L 16 135/70 94 12/01/21 12:46 12/01/21 12:46 12/01/21 12:46 12/01/21 12:46 12/01/21 12:46 Temperature -Last 24 Hours Temperature 98.3 F Temperature 98.8 F Temperature 98.5 F Temperature 98.2 F - Labs CBC & Chem 7: 12/01/21 06:47 12/01/21 06:47 Labs: Abnormal lab results 11/30/21 12/01/21 12/01/21 Range/Units 21:28 06:47 06:47 RBC 3.39 L (3.65-5.03) M/mm3 Hgb 10.2 L (11.8-15.2) gm/dl Hct 32.5 L (35.5-45.6) % MCV 96 H (84-94) fl RDW 15.3 H (13.2-15.2) % Sodium 164 H* D (137-145) mmol/L Potassium 3.1 L (3.6-5.0) mmol/L Chloride 122.5 H (98-107) mmol/L BUN 35 H (9-20) mg/dL Glucose 200 H (75-100) mg/dL POC Glucose 214 H (70-105) mg/dL 12/01/21 12/01/21 Range/Units 07:51 11:01 RBC (3.65-5.03) M/mm3 Hgb (11.8-15.2) gm/dl Hct (35.5-45.6) % MCV (84-94) fl RDW (13.2-15.2) % Sodium (137-145) mmol/L Potassium (3.6-5.0) mmol/L Chloride (98-107) mmol/L BUN (9-20) mg/dL Glucose (75-100) mg/dL POC Glucose 174 H 170 H (70-105) mg/dL
[2021-12-01] MEDS: FLUCONAZOLE 100 MG TAB PO SCH (17:06)
[2021-12-02] MEDS: POTASSIUM CHLORIDE 20 MEQ in DEXTROSE 5% IN WATER 1,000 ML IV SCH (06:10)
--- NOTE | 2021-12-02 08:25 | Progress Note ---
Assessment and Plan 81 y/o male with acute respiratory failure likely secondary to COVID but also could be from volume overload, with renal failure and Kleibsiella UTI. 12/02/21: now on 4 liters NC with good sats. Continue to wean as tolerated. given his heart failure, from a pulmonary standpoint strongly suggest keeping net negative as much as possible. Will see as needed. If oxygen is required at discharge, can use COVID as diagnosis. 12/01/21: I/O has not bee accurate since Wednesday. unsure off fluid balance. Renal and cards following so will defer to them. Continue to wean FiO2 for sats >88%. Negative fluid balance would help with oxygenation. 11/28/21: Please continue net negative state daily as this has really helped with oxygen requirement. Wean FiO2 for sats >88% 11/27/21: Prone as tolerated. Wean FiO2 for sats >88%. Suggest daily net negative state if bp and renal function will allow. Cards now following, defer diuresis to them. Appreciate ID note. Continue steroids and remdesivir. ID considering actemra, awaiting repeat CRP 1. ID-Was on rocephin in [place], then was discharged on levaquin for 2 days. Kleb is resistant to ampicillin bactrim and tetracycline. Was sensitive to everything else. ID following. not currently on abx. Has been afebile no white count 2. Pulm- acute respiratory failure with worsening while in house. Could be all related to COVID but given his history of systolic CHF, could be volume related as well as it was so acute after a couple days of IV hydration. If renal function and bp would allow, would attempt some yennifer IV diuresis. Prone given COVID and agree with steroids and Remdesivir. 3. Guarded prognosis, will continue to follow Subjective Date of service: 12/02/21 Principal diagnosis: Acute encephalopathy Interval history: Patient weaned to 4 liters. Unable to get MRI secondary to confusion and movement. Objective Vital Signs - 12hr 12/01/21 12/02/21 12/02/21 21:28 00:20 04:34 Temperature 98.0 F 98.3 F Pulse Rate 88 81 Respiratory 16 16 Rate Blood Pressure 132/90 126/69 O2 Sat by Pulse 91 96 97 Oximetry Constitutional: no acute distress, alert, other (confused) Eyes: non-icteric ENT: oropharynx moist Neck: supple Effort: normal Ascultation: Bilateral: diminished breath sounds Cardiovascular: regular rate and rhythm Gastrointestinal: normoactive bowel sounds, soft, non-tender, non-distended CBC and BMP: 12/01/21 06:47 12/01/21 06:47 ABG, PT/INR, D-dimer: PT/INR, D-dimer D-Dimer 1279.46 ng/mlDDU (0-234) H 11/26/21 16:44 Abnormal lab findings: Abnormal Labs 11/21/21 11/21/21 11/21/21 19:36 19:36 19:37 WBC RBC 3.56 L Hgb 10.8 L Hct 34.1 L MCV 96 H MCHC RDW 15.3 H Lymph % (Auto) [place] % (Auto) Lymph # (Auto) Seg Neutrophils % Seg Neuts % (Manual) 79.0 H Lymphocytes % (Manual) 10.0 L Monocytes % (Manual) 8.0 H Basophils % (Manual) 3.0 H Seg Neutrophils # Lymphocytes # (Manual) 0.7 L Basophils # (Manual) 0.2 H D-Dimer Sodium Potassium 3.2 L Chloride BUN 23 H Creatinine 1.4 H Glucose 210 H POC Glucose Uric Acid Calcium 8.2 L AST 45 H Alkaline Phosphatase 133 H Ammonia C-Reactive Protein Total Protein Albumin 3.0 L TSH Urine WBC (Auto) 48.0 H Urine Creatinine Urine Total Protein Coronavirus (PCR) 11/21/21 11/22/21 11/22/21 19:37 11:52 15:52 WBC RBC Hgb Hct MCV MCHC RDW Lymph % (Auto) [place] % (Auto) Lymph # (Auto) Seg Neutrophils % Seg Neuts % (Manual) Lymphocytes % (Manual) Monocytes % (Manual) Basophils % (Manual) Seg Neutrophils # Lymphocytes # (Manual) Basophils # (Manual) D-Dimer Sodium Potassium Chloride BUN Creatinine Glucose POC Glucose 144 H 194 H Uric Acid Calcium AST Alkaline Phosphatase Ammonia C-Reactive Protein Total Protein Albumin TSH 4.800 H Urine WBC (Auto) Urine Creatinine Urine Total Protein Coronavirus (PCR) 11/22/21 11/23/21 11/23/21 20:42 04:48 04:48 WBC RBC 3.22 L Hgb 9.8 L Hct 30.9 L MCV 96 H MCHC RDW Lymph % (Auto) [place] % (Auto) 9.4 H Lymph # (Auto) 1.1 L Seg Neutrophils % 76.5 H Seg Neuts % (Manual) Lymphocytes % (Manual) Monocytes % (Manual) Basophils % (Manual) Seg Neutrophils # Lymphocytes # (Manual) Basophils # (Manual) D-Dimer Sodium Potassium 3.1 L Chloride BUN 24 H Creatinine Glucose 112 H POC Glucose 155 H Uric Acid Calcium 8.1 L AST Alkaline Phosphatase Ammonia C-Reactive Protein Total Protein Albumin TSH Urine WBC (Auto) Urine Creatinine Urine Total Protein Coronavirus (PCR) 11/23/21 11/23/21 11/23/21 08:03 12:24 16:37 WBC RBC Hgb Hct MCV MCHC RDW Lymph % (Auto) [place] % (Auto) Lymph # (Auto) Seg Neutrophils % Seg Neuts % (Manual) Lymphocytes % (Manual) Monocytes % (Manual) Basophils % (Manual) Seg Neutrophils # Lymphocytes # (Manual) Basophils # (Manual) D-Dimer Sodium Potassium Chloride BUN Creatinine Glucose POC Glucose 111 H 106 H 112 H Uric Acid Calcium AST Alkaline Phosphatase Ammonia C-Reactive Protein Total Protein Albumin TSH Urine WBC (Auto) Urine Creatinine Urine Total Protein Coronavirus (PCR) 11/23/21 11/23/21 11/24/21 20:45 Unknown 11:47 WBC RBC Hgb Hct MCV MCHC RDW Lymph % (Auto) [place] % (Auto) Lymph # (Auto) Seg Neutrophils % Seg Neuts % (Manual) Lymphocytes % (Manual) Monocytes % (Manual) Basophils % (Manual) Seg Neutrophils # Lymphocytes # (Manual) Basophils # (Manual) D-Dimer Sodium Potassium Chloride BUN Creatinine Glucose POC Glucose 179 H 142 H Uric Acid Calcium AST Alkaline Phosphatase Ammonia C-Reactive Protein Total Protein Albumin TSH Urine WBC (Auto) Urine Creatinine Urine Total Protein Coronavirus (PCR) Positive A 11/24/21 11/24/21 11/25/21 18:09 20:52 05:27 WBC RBC 3.22 L Hgb 9.6 L Hct 31.1 L MCV 97 H MCHC 31 L RDW 15.6 H Lymph % (Auto) 10.5 L [place] % (Auto) Lymph # (Auto) 1.1 L Seg Neutrophils % 82.0 H Seg Neuts % (Manual) Lymphocytes % (Manual) Monocytes % (Manual) Basophils % (Manual) Seg Neutrophils # 8.7 H Lymphocytes # (Manual) Basophils # (Manual) D-Dimer Sodium Potassium Chloride BUN Creatinine Glucose POC Glucose 107 H 209 H Uric Acid Calcium AST Alkaline Phosphatase Ammonia C-Reactive Protein Total Protein Albumin TSH Urine WBC (Auto) Urine Creatinine Urine Total Protein Coronavirus (PCR) 11/25/21 11/25/21 11/25/21 05:27 05:27 13:43 WBC RBC Hgb Hct MCV MCHC RDW Lymph % (Auto) [place] % (Auto) Lymph # (Auto) Seg Neutrophils % Seg Neuts % (Manual) Lymphocytes % (Manual) Monocytes % (Manual) Basophils % (Manual) Seg Neutrophils # Lymphocytes # (Manual) Basophils # (Manual) D-Dimer Sodium 146 H Potassium Chloride 108.2 H BUN Creatinine Glucose 145 H 191 H POC Glucose Uric Acid Calcium 7.8 L AST 67 H Alkaline Phosphatase Ammonia C-Reactive Protein 25.00 H Total Protein 5.1 L D Albumin 2.5 L TSH Urine WBC (Auto) Urine Creatinine Urine Total Protein Coronavirus (PCR) 11/25/21 11/26/21 11/26/21 18:16 05:00 08:01 WBC RBC Hgb Hct MCV MCHC RDW Lymph % (Auto) [place] % (Auto) Lymph # (Auto) Seg Neutrophils % Seg Neuts % (Manual) Lymphocytes % (Manual) Monocytes % (Manual) Basophils % (Manual) Seg Neutrophils # Lymphocytes # (Manual) Basophils # (Manual) D-Dimer Sodium Potassium Chloride BUN 28 H Creatinine 1.7 H Glucose 236 H POC Glucose 149 H 206 H Uric Acid Calcium 7.8 L AST 51 H Alkaline Phosphatase 233 H Ammonia C-Reactive Protein Total Protein 5.9 L Albumin 2.3 L TSH Urine WBC (Auto) Urine Creatinine Urine Total Protein Coronavirus (PCR) 11/26/21 11/26/21 11/26/21 08:21 11:09 16:37 WBC RBC Hgb Hct MCV MCHC RDW Lymph % (Auto) [place] % (Auto) Lymph # (Auto) Seg Neutrophils % Seg Neuts % (Manual) Lymphocytes % (Manual) Monocytes % (Manual) Basophils % (Manual) Seg Neutrophils # Lymphocytes # (Manual) Basophils # (Manual) D-Dimer Sodium Potassium Chloride BUN 28 H Creatinine 1.5 H Glucose POC Glucose 198 H 154 H Uric Acid Calcium AST Alkaline Phosphatase Ammonia C-Reactive Protein Total Protein Albumin TSH Urine WBC (Auto) Urine Creatinine Urine Total Protein Coronavirus (PCR) 11/26/21 11/26/21 11/27/21 16:44 22:20 05:17 WBC 14.0 H RBC 3.12 L Hgb 9.1 L Hct 29.3 L MCV MCHC 31 L RDW Lymph % (Auto) [place] % (Auto) Lymph # (Auto) Seg Neutrophils % Seg Neuts % (Manual) Lymphocytes % (Manual) Monocytes % (Manual) Basophils % (Manual) Seg Neutrophils # Lymphocytes # (Manual) Basophils # (Manual) D-Dimer 1279.46 H Sodium Potassium Chloride BUN Creatinine Glucose POC Glucose 173 H Uric Acid Calcium AST Alkaline Phosphatase Ammonia C-Reactive Protein Total Protein Albumin TSH Urine WBC (Auto) Urine Creatinine Urine Total Protein Coronavirus (PCR) 11/27/21 11/27/21 11/27/21 05:17 05:17 11:22 WBC RBC Hgb Hct MCV MCHC RDW Lymph % (Auto) [place] % (Auto) Lymph # (Auto) Seg Neutrophils % Seg Neuts % (Manual) Lymphocytes % (Manual) Monocytes % (Manual) Basophils % (Manual) Seg Neutrophils # Lymphocytes # (Manual) Basophils # (Manual) D-Dimer Sodium 147 H Potassium Chloride 107.3 H BUN 37 H Creatinine 1.6 H Glucose 197 H POC Glucose 185 H Uric Acid Calcium 8.1 L AST Alkaline Phosphatase 211 H Ammonia C-Reactive Protein 13.00 H Total Protein 5.6 L Albumin 2.5 L TSH Urine WBC (Auto) Urine Creatinine Urine Total Protein Coronavirus (PCR) 11/27/21 11/27/21 11/27/21 17:35 21:12 Unknown WBC RBC Hgb Hct MCV MCHC RDW Lymph % (Auto) [place] % (Auto) Lymph # (Auto) Seg Neutrophils % Seg Neuts % (Manual) Lymphocytes % (Manual) Monocytes % (Manual) Basophils % (Manual) Seg Neutrophils # Lymphocytes # (Manual) Basophils # (Manual) D-Dimer Sodium Potassium Chloride BUN Creatinine Glucose POC Glucose 144 H 127 H Uric Acid Calcium AST Alkaline Phosphatase Ammonia C-Reactive Protein Total Protein Albumin TSH Urine WBC (Auto) 13.0 H Urine Creatinine Urine Total Protein Coronavirus (PCR) 11/27/21 11/27/21 11/28/21 Unknown Unknown 06:47 WBC RBC Hgb Hct MCV MCHC RDW Lymph % (Auto) [place] % (Auto) Lymph # (Auto) Seg Neutrophils % Seg Neuts % (Manual) Lymphocytes % (Manual) Monocytes % (Manual) Basophils % (Manual) Seg Neutrophils # Lymphocytes # (Manual) Basophils # (Manual) D-Dimer Sodium 148 H Potassium 3.4 L Chloride 107.4 H BUN 43 H Creatinine 1.6 H Glucose 226 H POC Glucose Uric Acid 9.8 H Calcium 8.3 L AST Alkaline Phosphatase 197 H Ammonia C-Reactive Protein Total Protein 5.6 L Albumin 2.5 L TSH Urine WBC (Auto) Urine Creatinine 80.9 H Urine Total Protein 43 H Coronavirus (PCR) 11/28/21 11/28/21 11/28/21 07:28 11:52 12:59 WBC RBC Hgb Hct MCV MCHC RDW Lymph % (Auto) [place] % (Auto) Lymph # (Auto) Seg Neutrophils % Seg Neuts % (Manual) Lymphocytes % (Manual) Monocytes % (Manual) Basophils % (Manual) Seg Neutrophils # Lymphocytes # (Manual) Basophils # (Manual) D-Dimer Sodium Potassium Chloride BUN Creatinine Glucose POC Glucose 192 H 210 H Uric Acid Calcium AST Alkaline Phosphatase Ammonia 12.0 L C-Reactive Protein Total Protein Albumin TSH Urine WBC (Auto) Urine Creatinine Urine Total Protein Coronavirus (PCR) 11/28/21 11/28/21 11/29/21 17:44 22:20 05:15 WBC RBC 3.31 L Hgb 9.9 L Hct 31.5 L MCV 95 H MCHC RDW 15.5 H Lymph % (Auto) [place] % (Auto) Lymph # (Auto) Seg Neutrophils % Seg Neuts % (Manual) Lymphocytes % (Manual) Monocytes % (Manual) Basophils % (Manual) Seg Neutrophils # Lymphocytes # (Manual) Basophils # (Manual) D-Dimer Sodium Potassium Chloride BUN Creatinine Glucose POC Glucose 213 H 163 H Uric Acid Calcium AST Alkaline Phosphatase Ammonia C-Reactive Protein Total Protein Albumin TSH Urine WBC (Auto) Urine Creatinine Urine Total Protein Coronavirus (PCR) 11/29/21 11/29/21 11/29/21 05:15 11:11 15:45 WBC RBC Hgb Hct MCV MCHC RDW Lymph % (Auto) [place] % (Auto) Lymph # (Auto) Seg Neutrophils % Seg Neuts % (Manual) Lymphocytes % (Manual) Monocytes % (Manual) Basophils % (Manual) Seg Neutrophils # Lymphocytes # (Manual) Basophils # (Manual) D-Dimer Sodium 152 H Potassium 3.2 L Chloride 114.1 H BUN 41 H Creatinine 1.4 H Glucose POC Glucose 149 H 212 H Uric Acid Calcium AST Alkaline Phosphatase Ammonia C-Reactive Protein Total Protein Albumin TSH Urine WBC (Auto) Urine Creatinine Urine Total Protein Coronavirus (PCR) 11/29/21 11/30/21 11/30/21 21:54 07:20 11:23 WBC RBC Hgb Hct MCV MCHC RDW Lymph % (Auto) [place] % (Auto) Lymph # (Auto) Seg Neutrophils % Seg Neuts % (Manual) Lymphocytes % (Manual) Monocytes % (Manual) Basophils % (Manual) Seg Neutrophils # Lymphocytes # (Manual) Basophils # (Manual) D-Dimer Sodium Potassium Chloride BUN Creatinine Glucose POC Glucose 197 H 150 H 180 H Uric Acid Calcium AST Alkaline Phosphatase Ammonia C-Reactive Protein Total Protein Albumin TSH Urine WBC (Auto) Urine Creatinine Urine Total Protein Coronavirus (PCR) 11/30/21 11/30/21 12/01/21 15:55 21:28 06:47 WBC RBC 3.39 L Hgb 10.2 L Hct 32.5 L MCV 96 H MCHC RDW 15.3 H Lymph % (Auto) [place] % (Auto) Lymph # (Auto) Seg Neutrophils % Seg Neuts % (Manual) Lymphocytes % (Manual) Monocytes % (Manual) Basophils % (Manual) Seg Neutrophils # Lymphocytes # (Manual) Basophils # (Manual) D-Dimer Sodium Potassium Chloride BUN Creatinine Glucose POC Glucose 184 H 214 H Uric Acid Calcium AST Alkaline Phosphatase Ammonia C-Reactive Protein Total Protein Albumin TSH Urine WBC (Auto) Urine Creatinine Urine Total Protein Coronavirus (PCR) 12/01/21 12/01/21 12/01/21 06:47 07:51 11:01 WBC RBC Hgb Hct MCV MCHC RDW Lymph % (Auto) [place] % (Auto) Lymph # (Auto) Seg Neutrophils % Seg Neuts % (Manual) Lymphocytes % (Manual) Monocytes % (Manual) Basophils % (Manual) Seg Neutrophils # Lymphocytes # (Manual) Basophils # (Manual) D-Dimer Sodium 164 H* D Potassium 3.1 L Chloride 122.5 H BUN 35 H Creatinine Glucose 200 H POC Glucose 174 H 170 H Uric Acid Calcium AST Alkaline Phosphatase Ammonia C-Reactive Protein Total Protein Albumin TSH Urine WBC (Auto) Urine Creatinine Urine Total Protein Coronavirus (PCR) 12/01/21 12/01/21 12/02/21 17:17 21:24 07:31 WBC RBC Hgb Hct MCV MCHC RDW Lymph % (Auto) [place] % (Auto) Lymph # (Auto) Seg Neutrophils % Seg Neuts % (Manual) Lymphocytes % (Manual) Monocytes % (Manual) Basophils % (Manual) Seg Neutrophils # Lymphocytes # (Manual) Basophils # (Manual) D-Dimer Sodium Potassium Chloride BUN Creatinine Glucose POC Glucose 134 H 180 H 179 H Uric Acid Calcium AST Alkaline Phosphatase Ammonia C-Reactive Protein Total Protein Albumin TSH Urine WBC (Auto) Urine Creatinine Urine Total Protein Coronavirus (PCR)
--- NOTE | 2021-12-02 09:28 | Progress Note ---
Subjective Date of service: 12/02/21 Principal diagnosis: Acute encephalopathy Interval history: mpression * Nonoliguric acute kidney injury secondary to prerenal azotemia (FeNa 0.5%) --Baseline SCr 13mg/dL * Acute hypoxic respiratory failure secondary to COVID 19 PNA * Severe COVID-19 pneumonia * Hypernatremia * Hypokalemia * Acute encephalopathy * Cardiomyopathy - EF 35% * Anemia * Urinary tract infection - Klebsiella pneumonia * Mild left hydronephrosis Recommendations * Renal function now at baseline * Na is worse at last check, lytes pending today, continue d5w * patient note recieving ivfs as ordered * pulm note reviewed, NA 164, will need better elec control, avoid over diuresis with hypernatremia * Continue to hold MIREYA inhibitor/ARB at this time * Encourage free water intake * Management of COVID-19 PNA per ID and primary team * Abx per ID * Maintain MAP >65 * Avoid potential nephrotoxins * Monitor lytes, fluid balance closely * Strict I/O Subjective Principal diagnosis: Acute encephalopathy Interval history: Patient has no complaints. No acute events overnight Objective - General Appearance exam deferred, primary team exam noted Objective - Vital Signs Vital signs: Vital Signs - 12hr 12/01/21 12/02/21 12/02/21 21:28 00:20 04:34 Temperature 98.0 F 98.3 F Pulse Rate 88 81 Respiratory 16 16 Rate Blood Pressure 132/90 126/69 O2 Sat by Pulse 91 96 97 Oximetry 12/02/21 09:01 Temperature Pulse Rate Respiratory Rate Blood Pressure O2 Sat by Pulse 97 Oximetry - Lab 12/01/21 06:47 12/01/21 06:47 Most recent lab results Calcium 8.6 mg/dL (8.4-10.2) 12/01/21 06:47 Urine Creatinine 80.9 mg/dL (0.1-20.0) H 11/27/21 Unknown Urine Sodium 36 mmol/L 11/27/21 Unknown Urine Total Protein 43 mg/dL (5-11.8) H 11/27/21 Unknown Medications & Allergies - Medications Allergies/Adverse Reactions: Allergies No Known Allergies Allergy (Verified 11/22/21 05:55) Home Medications: Home Medications Medication Instructions Recorded Confirmed Last Taken Type Furosemide [Lasix TAB] 80 mg PO TID 11/24/21 11/24/21 Unknown History Gabapentin [Neurontin] 300 mg PO BID 11/24/21 11/27/21 11/19/21 09:12 History 300 mg Sacubitril/Valsartan [Entresto 1 tab PO BID 11/24/21 11/27/21 11/19/21 09:12 History 49-51 mg] 1 tab Spironolactone [Aldactone] 25 mg PO QDAY 11/24/21 11/27/21 11/19/21 09:12 History 25 mg Tamsulosin [Flomax] 0.4 mg PO QDAY 11/24/21 11/27/21 11/18/21 22:02 History 0.4 mg carvediloL [Coreg] 6.25 mg PO BID 11/24/21 11/27/21 11/19/21 09:12 History 6.25mg AtorvaSTATin [Lipitor] 40 mg PO QHS 11/27/21 11/27/21 11/19/21 09:12 History 40 mg Insulin Glargine,Hum.rec.anlog 12 unit SQ QHS 11/27/21 11/27/21 11/18/21 22:02 History [Lantus Solostar] 12 units Insulin Lispro [Admelog] 1 - 12 unit SQ TIDAC 11/27/21 11/27/21 11/19/21 08:32 History 6 units Insulin Lispro [Admelog] 4 unit SQ TID 11/27/21 11/27/21 11/19/21 08:33 History 4 units oxyCODONE /ACETAMINOPHEN [Percocet 1 tab PO Q6HR PRN 11/27/21 11/27/21 11/19/21 03:57 History 5/325] 1 tab Active Medications: Generic Name Dose Route Start Last Admin Trade Name Freq PRN Reason Stop Dose Admin Acetaminophen 650 mg 11/22/21 05:48 Acetaminophen 325 Mg Tab PO Q4H PRN Pain MILD(1-3)/Fever >100.5/BRODY Albuterol 2.5 mg 11/25/21 12:00 Albuterol 2.5 Mg/3 Ml Nebu IH Q4HRT PRN Shortness Of Breath Dexamethasone 6 mg 11/26/21 12:00 12/01/21 10:00 Dexamethasone 4 Mg/Ml Vial IV 12/05/21 10:01 6 mg Q24HR NANDINI Administration Dextrose 50 ml 11/22/21 05:48 Dextrose 50% In Water (25gm) 50 Ml Syringe IV Q30MIN PRN Hypoglycemia Protocol Docusate Sodium 100 mg 11/25/21 22:00 12/01/21 21:43 Docusate Sodium 100 Mg Cap PO 100 mg BID NANDINI Administration Enoxaparin Sodium 70 mg 11/26/21 12:30 12/01/21 21:44 Enoxaparin 80 Mg/0.8 Ml Inj SUB-Q 70 mg Q12HR NANDINI Administration Fluconazole 100 mg 11/29/21 15:00 12/01/21 17:06 Fluconazole 100 Mg Tab PO 12/03/21 15:01 Not Given Q24H [facility] Protocol Hydralazine HCl 10 mg 11/22/21 05:58 Hydralazine 20 Mg/1 Ml Inj IV Q6H PRN Blood Pressure Hydromorphone HCl 0.5 mg 11/22/21 05:48 11/23/21 06:02 Hydromorphone 1 Mg/1 Ml Inj IV 0.5 mg Q3H PRN Administration Pain , Severe (7-10) Dextrose 1,000 mls @ 125 mls/hr 12/02/21 08:00 D5w IV DIRECT NANDINI Insulin Human Lispro 0 unit 11/22/21 07:30 12/01/21 21:46 Insulin Lispro 100 Unit/Ml SUB-Q 2 unit ACHS NANDINI Administration Protocol Metoprolol Tartrate 12.5 mg 11/30/21 22:00 12/01/21 21:43 Metoprolol Tartrate 25 Mg Tab PO 12.5 mg BID NANDINI Administration Morphine Sulfate 2 mg 11/22/21 05:48 11/22/21 22:43 Morphine 2 Mg/1 Ml Inj IV 2 mg Q4H PRN Administration Pain, Moderate (4-6) Ondansetron HCl 4 mg 11/22/21 05:48 Ondansetron 4 Mg/2 Ml Inj IV Q8H PRN Nausea And Vomiting Sodium Chloride 10 ml 11/22/21 10:00 12/01/21 21:44 Sodium Chloride 0.9% 10 Ml Flush Syringe IV 10 ml BID NANDINI Administration Sodium Chloride 10 ml 11/22/21 05:48 Sodium Chloride 0.9% 10 Ml Flush Syringe IV PRN PRN LINE FLUSH
[2021-12-02 09:44] LABS: Calcium 8.4 mg/dL (8.4-10.2)
[2021-12-02] MEDS: INSULIN LISPRO 100 UNIT/ML SUB-Q SCH ×4 (10:41→22:26)
[2021-12-02] MEDS: ENOXAPARIN 80 MG/0.8 ML INJ SUB-Q SCH ×2 (10:41→21:27)
[2021-12-02] MEDS: DEXTROSE 5% IN WATER 1,000 ML IV SCH ×2 (10:42→22:20)
[2021-12-02] MEDS: dexAMETHasone 4 MG/ML VIAL IV SCH (10:42)
--- NOTE | 2021-12-02 10:50 | Progress Note ---
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 Currently anticoagulated on Lovenox COPD DM Echo 11/27/2021- EF 40 to 45%, mild global hypokinesis of left ventricle. Right ventricular systolic function is normal. Mild aortic regurgitation. Trace tricuspid and pulmonic regurgitation Echo 12/01/2020- LVEF 35 - 40%. LV systolic function is moderately decreased,Grade I (mild) diastolic dysfunction. There were technical limitations during this study due to patient positioning and patient body habitus. Poor views unable to evaluate any of the valves PET Stress 01/31/2021- Abnormal pharmacological PET stress test. There is a small sized mild to moderate intensity partially reversible perfusion defect seen in the apical inferior wall consistent with infarct/scar and a small amount of ischemia. SSS 3, SRS 1, SDS 2. TID 0.84(normal).Severely depressed resting LV systolic function with a calculated LVEF 22% at rest which increased to 29% with peak stress. Global LV hypokinesis. Coronary calcifications were not seen by chest CT, however CT for attenuation correction is not sensitive. Stress ECG was negative for ischemia. No symptoms of chest pain with vasodilator stress Outpatient medications: Coreg 6.25 mg p.o. twice daily atorvastatin 40 mg p.o. nightly, spironolactone 25 mg p.o. daily, Entresto 49-51 mg p.o. twice daily, Lasix 80 mg p.o. 3 times daily Plan: Patient currently sinus 80s on monitor No MIREYA or ARB due to elevated creatinine per nephrology recs Will hold statin therapy due to elevated liver enzymes Continue present management Patient seen in conjunction with Dr. Javier who agrees with this plan of care - Patient Problems (1) Sinus bradycardia Current Visit: Yes Status: Acute (2) COVID-19 Current Visit: Yes Status: Acute (3) ROSANA (acute kidney injury) Current Visit: Yes Status: Acute (4) Acute metabolic encephalopathy Current Visit: Yes Status: Acute (5) Metabolic encephalopathy Current Visit: Yes Status: Acute Subjective Date of service: 12/02/21 Principal diagnosis: Acute encephalopathy Interval history: Patient resting in bed on oxygen being weaned. Patient remains altered Patient sinus 80s with PVCs on monitor Objective Vital Signs Temp Pulse Resp BP BP Pulse Ox 12/02/21 09:01 97 12/02/21 04:34 98.3 F 81 16 126/69 97 12/02/21 00:20 96 12/01/21 21:28 98.0 F 88 16 132/90 91 12/01/21 19:53 90 12/01/21 16:00 98.5 F 67 16 135/70 94 12/01/21 12:46 98.3 F 57 L 16 135/70 94 - Physical Examination General: Other (AMS) HEENT: Positive: PERRL, Mucus Membranes Dry Neck: Positive: trachea midline Cardiac: Positive: Reg Rate and Rhythm Lungs: Positive: Decreased Breath Sounds Neuro: Positive: Grossly Intact Abdomen: Positive: Soft Skin: Negative: Rash, Suspicious Lesions, Ulceration Extremities: Present: upper extr. pulses. Absent: edema - Labs and Meds Comprehensive Metabolic Panel 12/02/21 Range/Units 09:13 Sodium 163 H* (137-145) mmol/L Potassium 3.1 L (3.6-5.0) mmol/L Chloride 122.5 H (98-107) mmol/L Carbon Dioxide 28 (22-30) mmol/L BUN 28 H (9-20) mg/dL Creatinine 1.4 H (0.8-1.3) mg/dL Glucose 244 H (75-100) mg/dL Calcium 8.4 (8.4-10.2) mg/dL - Imaging and Cardiology Echo: report reviewed - Telemetry EKG Rhythm: Sinus Rhythm - EKG Sinus rhythms and dysrhythmias: sinus rhythm
[2021-12-02] MEDS ORDERED: HALOPERIDOL LACTATE 5 MG/1 ML INJ IM ONE (11:30)
[2021-12-02 14:07] LABS: BUN/Creatinine Ratio 22; Blood Urea Nitrogen 28 mg/dL (9-20); Calcium 8.5 mg/dL (8.4-10.2); Hemolysis Index 52
--- NOTE | 2021-12-02 14:12 | Progress Note ---
Assessment and Plan Cultures: 11/21/2021 urine culture: No growth 11/22/2021 blood culture: No growth 11/27/2021 urine culture: Natalia albicans A/P:81-year-old man past medical history hypertension, diabetes #Severe COVID-19 pneumonia: Patient presented with a week of symptoms, chest x- ray with diffuse bilateral infiltrates. Inflammatory markers elevated #Acute hypoxemic respiratory failure: Likely secondary to COVID-19 infection. Weaned from high flow nasal cannula to NC. #Diabetes: tight glycemic control for best outcomes. #Hypernatremia Recommendations: -complete steroids for 10 days -completed remdesivir -Actemra administered 11/27/2021 -Completed 5 days ceftriaxone -Anticoagulation per hospital protocol -No antifungals indicated for candiduria Will sign off. Please call with questions. Eliseo Hoang MD, FACP, [facility] O: [phone] F: [phone] Subjective Date of service: 12/02/21 Principal diagnosis: Acute encephalopathy Interval history: Afebrile. Stable on nasal cannula at 4 L/min Objective - Exam Narrative Exam: Physical Exam (reviewed in chart to minimize risk of transmission) Constitutional: deferred Head, Ears, Nose: deferred Eyes: deferred Neck: deferred Oral: deferred Cardiovascular: deferred Respiratory: deferred GI: deferred Musculoskeletal: deferred Skin: deferred Hem/Lymphatic: deferred Psych: deferred Neurological: deferred - Constitutional Vitals: Vital Signs Temp Pulse Resp BP Pulse Ox 97.6 F 80 16 145/70 85 12/02/21 12:00 12/02/21 12:00 12/02/21 12:00 12/02/21 12:00 12/02/21 12:00 Temperature -Last 24 Hours Temperature 97.6 F Temperature 98.3 F Temperature 98.0 F Temperature 98.5 F - Labs CBC & Chem 7: 12/01/21 06:47 12/02/21 13:12 Labs: Abnormal lab results 12/01/21 12/01/21 12/02/21 Range/Units 17:17 21:24 07:31 Sodium (137-145) mmol/L Potassium (3.6-5.0) mmol/L Chloride (98-107) mmol/L BUN (9-20) mg/dL Creatinine (0.8-1.3) mg/dL Glucose (75-100) mg/dL POC Glucose 134 H 180 H 179 H (70-105) mg/dL 12/02/21 12/02/21 12/02/21 Range/Units 09:13 10:45 13:12 Sodium 163 H* 159 H (137-145) mmol/L Potassium 3.1 L 3.4 L (3.6-5.0) mmol/L Chloride 122.5 H 121.4 H (98-107) mmol/L BUN 28 H 28 H (9-20) mg/dL Creatinine 1.4 H (0.8-1.3) mg/dL Glucose 244 H 250 H (75-100) mg/dL POC Glucose 211 H (70-105) mg/dL 12/02/21 Range/Units 13:27 Sodium (137-145) mmol/L Potassium (3.6-5.0) mmol/L Chloride (98-107) mmol/L BUN (9-20) mg/dL Creatinine (0.8-1.3) mg/dL Glucose (75-100) mg/dL POC Glucose 204 H (70-105) mg/dL
[2021-12-02] MEDS: POTASSIUM CHLORIDE 10 MEQ 10 MEQ/100 ML BAG IV SCH ×4 (14:26→18:07)
[2021-12-02] MEDS: METOPROLOL TARTRATE 25 MG TAB PO SCH ×2 (15:27→21:27)
[2021-12-02] MEDS: DOCUSATE SODIUM 100 MG CAP PO SCH ×2 (15:27→21:27)
--- NOTE | 2021-12-02 15:41 | Progress Note ---
Assessment and Plan Assessment and plan: #Acute metabolic encephalopathy -Etiology unknown. Unsure if secondary to COVID-19 pneumonia versus baseline. -Baseline mentation is currently unknown. Neurology consulted; pending recs. Holding on chemical sedation unless absolutely necessary. Continue to monitor. #Acute hypoxic respiratory failure secondary to COVID-19improving #COVID-19 pneumonia Patient weaned from high flow nasal cannula to nasal cannula 4 L Continue daily Decadron x10 days (end date 12/05/2021). Not a candidate for remdesivir. Pulmonary consulted; appreciate recs Infectious disease consulted; appreciate recs Continue weaning as tolerated Proning as tolerated #Insulin dependent type II diabetes mellitus - hemoglobin A1c: Pending - current regimen: NPH 10 units twice daily - blood glucose goal 140-180 while inpatient - continue to monitor #Hypertension Hydralazine 10 mg IV every 6 hours as needed. We will monitor the blood pressure closely # ROSANA (acute kidney injury) secondary to vasomotor nephropathy Patient still has prerenal azotemia Nephrology consulted; appreciate recs Continue IV fluids per nephrology recommendations # Hypokalemia Repleted. Continue to monitor #Hypernatremia Sodium 164 Nephrology consulted; appreciate recs Starting D5W at 125 cc/hour Monitor electrolytes # Urinary tract infectionresolved Completed IV antibiotic therapy Urine cultures negative for bacteria and positive for Natalia Blood cultures-no growth #Constipation Continue stool softener #CAD #Cardiomyopathy #Chronic HFrEF Cardiology consulted; appreciate recs TTE revealing EF 35 to 40% Continue low-dose beta-tee #Bradycardia Heart rate in the low low 50s Likely secondary to beta-tee #Hyperglycemia Continue insulin sliding scale coverage Blood glucose goal [id number] while inpatient. Continue to monitor #Severe debility Consulted physical therapy and Occupational Therapy; appreciate recs #Advanced care planning -Disease education conducted, care plan discussed, diagnoses discussed, prognosis discussed, and patient acknowledges understanding with care plan -Time: +30 min Disposition Plan: Continue medical management Total Time Spent with Patient (Minutes): 45 minutes History Interval history: No acute events overnight. Hospitalist Physical - Constitutional Vitals: Temp Pulse Resp BP Pulse Ox 97.6 F 80 16 145/70 85 12/02/21 12:00 12/02/21 12:00 12/02/21 12:00 12/02/21 12:00 12/02/21 12:00 General appearance: Present: no acute distress, cachectic, other (Confused, not responding to questions. ill looking) - EENT Eyes: Present: PERRL, EOM intact ENT: hearing intact, poor dentition, edentulous - Neck Neck: Present: supple, normal ROM - Respiratory Respiratory effort: labored Respiratory: bilateral: diminished (On 4 L nasal cannula) - Cardiovascular Rhythm: regular Heart Sounds: Present: S1 & S2 - Extremities Extremities: no ischemia, pulses intact, pulses symmetrical, No edema, normal temperature, normal color, Full ROM Peripheral Pulses: within normal limits - Abdominal General gastrointestinal: soft, non-tender, non-distended, normal bowel sounds - Integumentary Integumentary: Present: clear, warm, dry - Psychiatric Psychiatric: other (Unable to assess given encephalopathy) - Neurologic Neurologic: other (Unable to assess given encephalopathy) - Allied Health Allied health notes reviewed: nursing Results - Labs CBC & Chem 7: 12/01/21 06:47 12/02/21 13:12 Labs: Laboratory Last Values WBC 6.4 K/mm3 (4.5-11.0) 12/01/21 06:47 RBC 3.39 M/mm3 (3.65-5.03) L 12/01/21 06:47 Hgb 10.2 gm/dl (11.8-15.2) L 12/01/21 06:47 Hct 32.5 % (35.5-45.6) L 12/01/21 06:47 MCV 96 fl (84-94) H 12/01/21 06:47 MCH 30 pg (28-32) 12/01/21 06:47 MCHC 32 % (32-34) 12/01/21 06:47 RDW 15.3 % (13.2-15.2) H 12/01/21 06:47 Plt Count 336 K/mm3 (140-440) 12/01/21 06:47 Lymph % (Auto) 10.5 % (13.4-35.0) L 11/25/21 05:27 Coal % (Auto) 6.8 % (0.0-7.3) 11/25/21 05:27 Eos % (Auto) 0.2 % (0.0-4.3) 11/25/21 05:27 Baso % (Auto) 0.5 % (0.0-1.8) 11/25/21 05:27 Lymph # (Auto) 1.1 K/mm3 (1.2-5.4) L 11/25/21 05:27 Coal # (Auto) 0.7 K/mm3 (0.0-0.8) 11/25/21 05:27 Eos # (Auto) 0.0 K/mm3 (0.0-0.4) 11/25/21 05:27 Baso # (Auto) 0.1 K/mm3 (0.0-0.1) 11/25/21 05:27 Add Manual Diff Complete 11/21/21 19:36 Total Counted 100 11/21/21 19:36 Seg Neutrophils % 82.0 % (40.0-70.0) H 11/25/21 05:27 Seg Neuts % (Manual) 79.0 % (40.0-70.0) H 11/21/21 19:36 Lymphocytes % (Manual) 10.0 % (13.4-35.0) L 11/21/21 19:36 Monocytes % (Manual) 8.0 % (0.0-7.3) H 11/21/21 19:36 Basophils % (Manual) 3.0 % (0.0-1.8) H 11/21/21 19:36 Nucleated RBC % Not Reportable 11/21/21 19:36 Seg Neutrophils # 8.7 K/mm3 (1.8-7.7) H 11/25/21 05:27 Seg Neutrophils # Man 5.3 K/mm3 (1.8-7.7) 11/21/21 19:36 Band Neutrophils # 0.0 K/mm3 11/21/21 19:36 Lymphocytes # (Manual) 0.7 K/mm3 (1.2-5.4) L 11/21/21 19:36 Abs React Lymphs (Man) 0.0 K/mm3 11/21/21 19:36 Monocytes # (Manual) 0.5 K/mm3 (0.0-0.8) 11/21/21 19:36 Eosinophils # (Manual) 0.0 K/mm3 (0.0-0.4) 11/21/21 19:36 Basophils # (Manual) 0.2 K/mm3 (0.0-0.1) H 11/21/21 19:36 Metamyelocytes # 0.0 K/mm3 11/21/21 19:36 Myelocytes # 0.0 K/mm3 11/21/21 19:36 Promyelocytes # 0.0 K/mm3 11/21/21 19:36 Blast Cells # 0.0 K/mm3 11/21/21 19:36 WBC Morphology Not Reportable 11/21/21 19:36 Hypersegmented Neuts Not Reportable 11/21/21 19:36 Hyposegmented Neuts Not Reportable 11/21/21 19:36 Hypogranular Neuts Not Reportable 11/21/21 19:36 Smudge Cells Not Reportable 11/21/21 19:36 Toxic Granulation Not Reportable 11/21/21 19:36 Toxic Vacuolation Not Reportable 11/21/21 19:36 Dohle Bodies Not Reportable 11/21/21 19:36 Pelger-Huet Anomaly Not Reportable 11/21/21 19:36 Luan Rods Not Reportable 11/21/21 19:36 Platelet Estimate Consistent w auto 11/21/21 19:36 Clumped Platelets Not Reportable 11/21/21 19:36 Plt Clumps, EDTA Not Reportable 11/21/21 19:36 Large Platelets Not Reportable 11/21/21 19:36 Giant Platelets Not Reportable 11/21/21 19:36 Platelet Satelliting Not Reportable 11/21/21 19:36 Plt Morphology Comment Not Reportable 11/21/21 19:36 RBC Morphology Normal 11/21/21 19:36 Dimorphic RBCs Not Reportable 11/21/21 19:36 Polychromasia Not Reportable 11/21/21 19:36 Hypochromasia Not Reportable 11/21/21 19:36 Poikilocytosis Not Reportable 11/21/21 19:36 Anisocytosis Not Reportable 11/21/21 19:36 Microcytosis Not Reportable 11/21/21 19:36 Macrocytosis Not Reportable 11/21/21 19:36 Spherocytes Not Reportable 11/21/21 19:36 Pappenheimer Bodies Not Reportable 11/21/21 19:36 Sickle Cells Not Reportable 11/21/21 19:36 Target Cells Not Reportable 11/21/21 19:36 Tear Drop Cells Not Reportable 11/21/21 19:36 Ovalocytes Not Reportable 11/21/21 19:36 Helmet Cells Not Reportable 11/21/21 19:36 [place] Bodies Not Reportable 11/21/21 19:36 [place] Rings Not Reportable 11/21/21 19:36 Star Cells Not Reportable 11/21/21 19:36 Bite Cells Not Reportable 11/21/21 19:36 Crenated Cell Not Reportable 11/21/21 19:36 Elliptocytes Not Reportable 11/21/21 19:36 Acanthocytes (Spur) Not Reportable 11/21/21 19:36 Rouleaux Not Reportable 11/21/21 19:36 Hemoglobin C Crystals Not Reportable 11/21/21 19:36 Schistocytes Not Reportable 11/21/21 19:36 Malaria parasites Not Reportable 11/21/21 19:36 Kalia Bodies Not Reportable 11/21/21 19:36 Hem Pathologist Commnt No 11/21/21 19:36 D-Dimer 1279.46 ng/mlDDU (0-234) H 11/26/21 16:44 Sodium 159 mmol/L (137-145) H 12/02/21 13:12 Potassium 3.4 mmol/L (3.6-5.0) L 12/02/21 13:12 Chloride 121.4 mmol/L (98-107) H 12/02/21 13:12 Carbon Dioxide 24 mmol/L (22-30) 12/02/21 13:12 Anion Gap 17 mmol/L 12/02/21 13:12 BUN 28 mg/dL (9-20) H 12/02/21 13:12 Creatinine 1.3 mg/dL (0.8-1.3) 12/02/21 13:12 Estimated GFR > 60 ml/min 12/02/21 13:12 BUN/Creatinine Ratio 22 % 12/02/21 13:12 Glucose 250 mg/dL (75-100) H 12/02/21 13:12 POC Glucose 204 mg/dL (70-105) H 12/02/21 13:27 Osmolality 316 Mosm/kg 11/27/21 Unknown Uric Acid 9.8 mg/dL (3.5-7.6) H 11/27/21 Unknown Calcium 8.5 mg/dL (8.4-10.2) 12/02/21 13:12 Total Bilirubin 0.40 mg/dL (0.1-1.2) 11/28/21 06:47 AST 22 units/L (5-40) 11/28/21 06:47 ALT 28 units/L (7-56) 11/28/21 06:47 Alkaline Phosphatase 197 units/L (35-129) H 11/28/21 06:47 Ammonia 12.0 umol/L (25-60) L 11/28/21 12:59 C-Reactive Protein 13.00 mg/dL (0.00-1.30) H 11/27/21 05:17 Total Protein 5.6 g/dL (6.3-8.2) L 11/28/21 06:47 Albumin 2.5 g/dL (3.9-5) L 11/28/21 06:47 Albumin/Globulin Ratio 0.8 % 11/28/21 06:47 Procalcitonin 3.10 ng/mL (<0.15) 11/26/21 08:21 TSH 4.800 mlU/mL (0.270-4.200) H 11/21/21 19:37 Urine Color Kimberli (Yellow) 11/27/21 Unknown Urine Turbidity Slightly-cloudy (Clear) 11/27/21 Unknown Urine pH 5.0 (5.0-7.0) 11/27/21 Unknown Ur Specific [place] 1.013 (1.003-1.030) 11/27/21 Unknown Urine Protein <15 mg/dl mg/dL (Negative) 11/27/21 Unknown Urine Glucose (UA) 50 mg/dL (Negative) 11/27/21 Unknown Urine Ketones Tr mg/dL (Negative) 11/27/21 Unknown Urine Blood Neg (Negative) 11/27/21 Unknown Urine Nitrite Neg (Negative) 11/27/21 Unknown Urine Bilirubin Neg (Negative) 11/27/21 Unknown Urine Urobilinogen < 2.0 mg/dL (<2.0) 11/27/21 Unknown Ur Leukocyte Esterase Neg (Negative) 11/27/21 Unknown Urine WBC (Auto) 13.0 /HPF (0.0-6.0) H 11/27/21 Unknown Urine RBC (Auto) 2.0 /HPF (0.0-6.0) 11/27/21 Unknown U Epithel Cells (Auto) 1.0 /HPF (0-13.0) 11/27/21 Unknown Urine Bacteria (Auto) 1+ /HPF (Negative) 11/27/21 Unknown Urine Mucus Few /HPF 11/27/21 Unknown Urine Yeast (Budding) 2+ /HPF 11/27/21 Unknown Urine Creatinine 80.9 mg/dL (0.1-20.0) H 11/27/21 Unknown Urine Sodium 36 mmol/L 11/27/21 Unknown Urine Total Protein 43 mg/dL (5-11.8) H 11/27/21 Unknown Coronavirus (PCR) Positive (Negative) A 11/23/21 Unknown Fritz/IV: Voiding Method Incontinent Active Medications - Current Medications Current Medications: Generic Name Dose Route Start Last Admin Trade Name Freq PRN Reason Stop Dose Admin Acetaminophen 650 mg 11/22/21 05:48 Acetaminophen 325 Mg Tab PO Q4H PRN Pain MILD(1-3)/Fever >100.5/BRODY Albuterol 2.5 mg 11/25/21 12:00 Albuterol 2.5 Mg/3 Ml Nebu IH Q4HRT PRN Shortness Of Breath Dexamethasone 6 mg 11/26/21 12:00 12/02/21 10:42 Dexamethasone 4 Mg/Ml Vial IV 12/05/21 10:01 6 mg Q24HR NANDINI Administration Dextrose 50 ml 11/22/21 05:48 Dextrose 50% In Water (25gm) 50 Ml Syringe IV Q30MIN PRN Hypoglycemia Protocol Docusate Sodium 100 mg 11/25/21 22:00 12/02/21 15:27 Docusate Sodium 100 Mg Cap PO Not Given BID NANDINI Enoxaparin Sodium 70 mg 11/26/21 12:30 12/02/21 10:41 Enoxaparin 80 Mg/0.8 Ml Inj SUB-Q 70 mg Q12HR NANDINI Administration Fluconazole 100 mg 11/29/21 15:00 12/01/21 17:06 Fluconazole 100 Mg Tab PO 12/03/21 15:01 Not Given Q24H NANDINI Protocol Hydralazine HCl 10 mg 11/22/21 05:58 Hydralazine 20 Mg/1 Ml Inj IV Q6H PRN Blood Pressure Hydromorphone HCl 0.5 mg 11/22/21 05:48 11/23/21 06:02 Hydromorphone 1 Mg/1 Ml Inj IV 0.5 mg Q3H PRN Administration Pain , Severe (7-10) Dextrose 1,000 mls @ 125 mls/hr 12/02/21 08:00 12/02/21 10:42 D5w IV 125 mls/hr DIRECT NANDINI Administration Potassium Chloride 10 meq in 100 mls @ 100 mls/hr 12/02/21 13:00 12/02/21 14:26 Kcl 10meq/100ml IV 12/02/21 16:59 100 mls/hr Q1H NANDINI Administration Insulin Human Lispro 0 unit 11/22/21 07:30 12/02/21 13:35 Insulin Lispro 100 Unit/Ml SUB-Q 3 unit ACHS NANDINI Administration Protocol Metoprolol Tartrate 12.5 mg 11/30/21 22:00 12/02/21 15:27 Metoprolol Tartrate 25 Mg Tab PO Not Given BID NANDINI Morphine Sulfate 2 mg 11/22/21 05:48 11/22/21 22:43 Morphine 2 Mg/1 Ml Inj IV 2 mg Q4H PRN Administration Pain, Moderate (4-6) Ondansetron HCl 4 mg 11/22/21 05:48 Ondansetron 4 Mg/2 Ml Inj IV Q8H PRN Nausea And Vomiting Sodium Chloride 10 ml 11/22/21 10:00 12/02/21 10:42 Sodium Chloride 0.9% 10 Ml Flush Syringe IV 10 ml BID NANDINI Administration Sodium Chloride 10 ml 11/22/21 05:48 Sodium Chloride 0.9% 10 Ml Flush Syringe IV PRN PRN LINE FLUSH Nutrition/Malnutrition Assess - Dietary Evaluation Nutrition/Malnutrition Findings: Nutrition Notes Start: 11/22/21 14:16 Freq: Status: Active Protocol: Document 11/27/21 09:32 NICKO (Rec: 11/27/21 09:53 NICKO [id number]) Nutrition Notes Initial or Follow up Brief Note Current Diet Cardiac Consistent Carbohydrates Diet (since B ), D Suppl (L 11/27). Height 5 ft 11 in Weight 68.8 kg [place] Body Weight (kg) 78.18 BMI 21.1 Weight change and time frame 5.3 Kg body weight gain in 5 days reported. Weight Status Underweight Subjective/Other Information RD consult for routine F/U on %PO intake of meals and ONS. No report available on %PO intake of meals at the time, last from 11/23, was at 50%. Increase Dietary Supplements to TID. Change to Glucerna to support Diabetes control. ROSANA is improving, according to Progress notes. Percent of energy/protein needs met: Prescribed Cardiac/Consistent Carbohydrates Diet provides for energy/protein needs (1, 977 Kcal/86 g) during LOS; additionally, Dietary Supplements will compensate for possible Poor PO intake of meals with 660 Kcal and 30 g of protein. Current % PO Fair (50-74%) #1 Nutrition Diagnosis Underweight Diagnosis Progress(for reassessment Continues documentation) Nutrition Intervention Change Diet Order: Continue Cardiac Consistent Carbohydrates Diet. Add Supplement/Snack (indicate name/kcal 8 fl oz Glucerna; TID /protein ) Provides kCal: 660 Provides Protein (gm) 30 Goal #1 Compensate, through dietary supplementation, for possible poor or insufficient PO intake of meals during LOS. Follow-Up By: 12/04/21 Additional Comments Continue monitoring food tolerance, %PO intake of meals , and BM.
[2021-12-02] MEDS: FLUCONAZOLE 100 MG TAB PO SCH (17:02)
[2021-12-02] MEDS: INSULIN NPH/REGULAR 70/30 INJ SUB-Q SCH (18:10)
[2021-12-02] MEDS: ONDANSETRON 4 MG/2 ML INJ IV PRN (21:28)
[2021-12-02] MEDS: MORPHINE 2 MG/1 ML INJ IV PRN (21:28)
[2021-12-03 08:43] LABS: BUN/Creatinine Ratio 16; Blood Urea Nitrogen 21 mg/dL (9-20); Calcium 8.4 mg/dL (8.4-10.2); Hemolysis Index 5
[2021-12-03] MEDS: INSULIN LISPRO 100 UNIT/ML SUB-Q SCH ×4 (08:51→23:07)
[2021-12-03] MEDS: INSULIN NPH/REGULAR 70/30 INJ SUB-Q SCH ×2 (08:53→18:09)
--- NOTE | 2021-12-03 09:12 | Consultation ---
History of Present Illness Consult date: 12/03/21 Reason for Consult: encephalopathy,COVID-19 History of present illness: Altered mental status History of present illness: 81-year-old male with past medical history of hypertension and diabetes was brought to the emergency room in by family due to altered mental status/confusion. Patient discharged from [facility] 2 days ago and has been confused since then. The did not know why he was in the hospital to begin with. Allegedly, before he went to the hospital he was able to have a cogent conversation and was ambulatory. Now, apparently he cannot support his own weight. He is confused and cannot carry a cogent conversation. Labs revealed several mild abnormalities including ROSANA with mildly elevated creatinine and hypokalemia with potassium of 3.2. There is no leukocytosis or anemia. Urinalysis shows UTI. Initial CT scan of the head shows no acute intracranial abnormality neurology consulted for evaluation of encephalopathy/confusion CT brain from 11/21 is unremarkable NA#163 BUN/cr#28/1.4 pt. is COVID-19 Positive started on decadron Amm.#12 CRP#13 on 11/27/2021 Past History Past Medical History: diabetes, hypertension Medications and Allergies Allergies Allergy/AdvReac Type Severity Reaction Status Date / Time No Known Allergies Allergy Unverified 11/21/21 19:22 Active Meds: Active Medications Cefepime HCl (Cefepime/Ns 2 Gm/100 Ml) 2 gm in 100 mls @ 200 mls/hr IV ONCE ONE; Protocol Stop: 11/22/21 06:01 Review of Systems All systems: negative Constitutional: lethargy Neurological: change in mentation Past History Past Medical History: atrial fib, CAD, cancer, COPD, diabetes, hypertension Past Surgical History: No surgical history Social history: no significant social history Family history: hypertension Medications and Allergies Allergies Allergy/AdvReac Type Severity Reaction Status Date / Time No Known Allergies Allergy Verified 11/22/21 05:55 Home Medications Medication Instructions Recorded Confirmed Last Taken Type Furosemide [Lasix TAB] 80 mg PO TID 11/24/21 11/24/21 Unknown History Gabapentin [Neurontin] 300 mg PO BID 11/24/21 11/27/21 11/19/21 09:12 History 300 mg Sacubitril/Valsartan [Entresto 1 tab PO BID 11/24/21 11/27/21 11/19/21 09:12 History 49-51 mg] 1 tab Spironolactone [Aldactone] 25 mg PO QDAY 11/24/21 11/27/21 11/19/21 09:12 History 25 mg Tamsulosin [Flomax] 0.4 mg PO QDAY 11/24/21 11/27/21 11/18/21 22:02 History 0.4 mg carvediloL [Coreg] 6.25 mg PO BID 11/24/21 11/27/21 11/19/21 09:12 History 6.25mg AtorvaSTATin [Lipitor] 40 mg PO QHS 11/27/21 11/27/21 11/19/21 09:12 History 40 mg Insulin Glargine,Hum.rec.anlog 12 unit SQ QHS 11/27/21 11/27/21 11/18/21 22:02 History [Lantus Solostar] 12 units Insulin Lispro [Admelog] 1 - 12 unit SQ TIDAC 11/27/21 11/27/21 11/19/21 08:32 History 6 units Insulin Lispro [Admelog] 4 unit SQ TID 11/27/21 11/27/21 11/19/21 08:33 History 4 units oxyCODONE /ACETAMINOPHEN [Percocet 1 tab PO Q6HR PRN 11/27/21 11/27/21 11/19/21 03:57 History 5/325] 1 tab Active Meds: Active Medications Acetaminophen (Acetaminophen 325 Mg Tab) 650 mg PO Q4H PRN PRN Reason: Pain MILD(1-3)/Fever >100.5/BRODY Albuterol (Albuterol 2.5 Mg/3 Ml Nebu) 2.5 mg IH Q4HRT PRN PRN Reason: Shortness Of Breath Dexamethasone (Dexamethasone 4 Mg/Ml Vial) 6 mg IV Q24HR NANDINI Stop: 12/05/21 10:01 Last Admin: 12/02/21 10:42 Dose: 6 mg Dextrose (Dextrose 50% In Water (25gm) 50 Ml Syringe) 50 ml IV Q30MIN PRN; Protocol PRN Reason: Hypoglycemia Dextrose (Dextrose 50% In Water (25gm) 50 Ml Syringe) 50 ml IV Q30MIN PRN; Protocol PRN Reason: Hypoglycemia Docusate Sodium (Docusate Sodium 100 Mg Cap) 100 mg PO BID [facility] Last Admin: 12/02/21 21:27 Dose: 100 mg Enoxaparin Sodium (Enoxaparin 80 Mg/0.8 Ml Inj) 70 mg SUB-Q Q12HR [facility] Last Admin: 12/02/21 21:27 Dose: 70 mg Fluconazole (Fluconazole 100 Mg Tab) 100 mg PO Q24H [facility]; Protocol Stop: 12/03/21 15:01 Last Admin: 12/02/21 17:02 Dose: Not Given Hydralazine HCl (Hydralazine 20 Mg/1 Ml Inj) 10 mg IV Q6H PRN PRN Reason: Blood Pressure Hydromorphone HCl (Hydromorphone 1 Mg/1 Ml Inj) 0.5 mg IV Q3H PRN PRN Reason: Pain , Severe (7-10) Last Admin: 11/23/21 06:02 Dose: 0.5 mg Dextrose (D5w) 1,000 mls @ 125 mls/hr IV DIRECT [facility] Last Admin: 12/02/21 22:20 Dose: 125 mls/hr Insulin Human Isoph/Insulin Regular (Insulin Nph/Regular 70/30 Inj) 10 unit SUB-Q BIDDIAB [facility] Last Admin: 12/03/21 08:53 Dose: 10 unit Insulin Human Lispro (Insulin Lispro 100 Unit/Ml) 0 unit SUB-Q ACHS [facility]; Protocol Last Admin: 12/03/21 08:51 Dose: 4 unit Metoprolol Tartrate (Metoprolol Tartrate 25 Mg Tab) 12.5 mg PO BID [facility] Last Admin: 12/02/21 21:27 Dose: 12.5 mg Morphine Sulfate (Morphine 2 Mg/1 Ml Inj) 2 mg IV Q4H PRN PRN Reason: Pain, Moderate (4-6) Last Admin: 12/02/21 21:28 Dose: 2 mg Ondansetron HCl (Ondansetron 4 Mg/2 Ml Inj) 4 mg IV Q8H PRN PRN Reason: Nausea And Vomiting Last Admin: 12/02/21 21:28 Dose: 4 mg Sodium Chloride (Sodium Chloride 0.9% 10 Ml Flush Syringe) 10 ml IV BID [facility] Last Admin: 12/02/21 22:27 Dose: 10 ml Sodium Chloride (Sodium Chloride 0.9% 10 Ml Flush Syringe) 10 ml IV PRN PRN PRN Reason: LINE FLUSH Physical Examination - Vital Signs Vital Signs: Vital Signs Temp Pulse Resp BP Pulse Ox 98.5 F 61 18 124/73 94 11/21/21 19:28 11/21/21 19:28 11/21/21 19:28 11/21/21 19:28 11/21/21 19:28 - Constitutional General appearance: uncomfortable - EENT EENT: Present: PERRL, mucous membranes moist - Respiratory Respiratory: Present: lungs clear, rhonchi - Cardiovascular Cardiovascular: Present: regular rate, normal S1, normal S2 Extremities: Present: no peripheral edema bilatateraly, no clubbing, cyanosis - Gastrointestinal Gastrointestinal: Present: normoactive bowel sounds - Integumentary Integumentary: Present: normal - Neurologic Cranial nerve examination: PERRL, EOMI, intact Speech examination: intact Sensorimotor examination: intact Detailed motor examination: grossly full strength in - Psychiatric Psychiatric: Present: other (he is alert disorieted to place and date or place, knows only his name, he is agitated some what ,restraint) Results - Laboratory Findings CBC and BMP: 12/01/21 06:47 12/03/21 04:00 Abnormal Lab Findings: Abnormal Labs 11/21/21 11/21/21 11/21/21 19:36 19:36 19:37 WBC RBC 3.56 L Hgb 10.8 L Hct 34.1 L MCV 96 H MCHC RDW 15.3 H Lymph % (Auto) Williams % (Auto) Lymph # (Auto) Seg Neutrophils % Seg Neuts % (Manual) 79.0 H Lymphocytes % (Manual) 10.0 L Monocytes % (Manual) 8.0 H Basophils % (Manual) 3.0 H Seg Neutrophils # Lymphocytes # (Manual) 0.7 L Basophils # (Manual) 0.2 H D-Dimer Sodium Potassium 3.2 L Chloride BUN 23 H Creatinine 1.4 H Glucose 210 H POC Glucose Uric Acid Calcium 8.2 L Phosphorus AST 45 H Alkaline Phosphatase 133 H Ammonia C-Reactive Protein Total Protein Albumin 3.0 L TSH Urine WBC (Auto) 48.0 H Urine Creatinine Urine Total Protein Coronavirus (PCR) 11/21/21 11/22/21 11/22/21 19:37 11:52 15:52 WBC RBC Hgb Hct MCV MCHC RDW Lymph % (Auto) Williams % (Auto) Lymph # (Auto) Seg Neutrophils % Seg Neuts % (Manual) Lymphocytes % (Manual) Monocytes % (Manual) Basophils % (Manual) Seg Neutrophils # Lymphocytes # (Manual) Basophils # (Manual) D-Dimer Sodium Potassium Chloride BUN Creatinine Glucose POC Glucose 144 H 194 H Uric Acid Calcium Phosphorus AST Alkaline Phosphatase Ammonia C-Reactive Protein Total Protein Albumin TSH 4.800 H Urine WBC (Auto) Urine Creatinine Urine Total Protein Coronavirus (PCR) 11/22/21 11/23/21 11/23/21 20:42 04:48 04:48 WBC RBC 3.22 L Hgb 9.8 L Hct 30.9 L MCV 96 H MCHC RDW Lymph % (Auto) Williams % (Auto) 9.4 H Lymph # (Auto) 1.1 L Seg Neutrophils % 76.5 H Seg Neuts % (Manual) Lymphocytes % (Manual) Monocytes % (Manual) Basophils % (Manual) Seg Neutrophils # Lymphocytes # (Manual) Basophils # (Manual) D-Dimer Sodium Potassium 3.1 L Chloride BUN 24 H Creatinine Glucose 112 H POC Glucose 155 H Uric Acid Calcium 8.1 L Phosphorus AST Alkaline Phosphatase Ammonia C-Reactive Protein Total Protein Albumin TSH Urine WBC (Auto) Urine Creatinine Urine Total Protein Coronavirus (PCR) 11/23/21 11/23/21 11/23/21 08:03 12:24 16:37 WBC RBC Hgb Hct MCV MCHC RDW Lymph % (Auto) Williams % (Auto) Lymph # (Auto) Seg Neutrophils % Seg Neuts % (Manual) Lymphocytes % (Manual) Monocytes % (Manual) Basophils % (Manual) Seg Neutrophils # Lymphocytes # (Manual) Basophils # (Manual) D-Dimer Sodium Potassium Chloride BUN Creatinine Glucose POC Glucose 111 H 106 H 112 H Uric Acid Calcium Phosphorus AST Alkaline Phosphatase Ammonia C-Reactive Protein Total Protein Albumin TSH Urine WBC (Auto) Urine Creatinine Urine Total Protein Coronavirus (PCR) 11/23/21 11/23/21 11/24/21 20:45 Unknown 11:47 WBC RBC Hgb Hct MCV MCHC RDW Lymph % (Auto) Williams % (Auto) Lymph # (Auto) Seg Neutrophils % Seg Neuts % (Manual) Lymphocytes % (Manual) Monocytes % (Manual) Basophils % (Manual) Seg Neutrophils # Lymphocytes # (Manual) Basophils # (Manual) D-Dimer Sodium Potassium Chloride BUN Creatinine Glucose POC Glucose 179 H 142 H Uric Acid Calcium Phosphorus AST Alkaline Phosphatase Ammonia C-Reactive Protein Total Protein Albumin TSH Urine WBC (Auto) Urine Creatinine Urine Total Protein Coronavirus (PCR) Positive A 11/24/21 11/24/21 11/25/21 18:09 20:52 05:27 WBC RBC 3.22 L Hgb 9.6 L Hct 31.1 L MCV 97 H MCHC 31 L RDW 15.6 H Lymph % (Auto) 10.5 L Williams % (Auto) Lymph # (Auto) 1.1 L Seg Neutrophils % 82.0 H Seg Neuts % (Manual) Lymphocytes % (Manual) Monocytes % (Manual) Basophils % (Manual) Seg Neutrophils # 8.7 H Lymphocytes # (Manual) Basophils # (Manual) D-Dimer Sodium Potassium Chloride BUN Creatinine Glucose POC Glucose 107 H 209 H Uric Acid Calcium Phosphorus AST Alkaline Phosphatase Ammonia C-Reactive Protein Total Protein Albumin TSH Urine WBC (Auto) Urine Creatinine Urine Total Protein Coronavirus (PCR) 11/25/21 11/25/21 11/25/21 05:27 05:27 13:43 WBC RBC Hgb Hct MCV MCHC RDW Lymph % (Auto) Williams % (Auto) Lymph # (Auto) Seg Neutrophils % Seg Neuts % (Manual) Lymphocytes % (Manual) Monocytes % (Manual) Basophils % (Manual) Seg Neutrophils # Lymphocytes # (Manual) Basophils # (Manual) D-Dimer Sodium 146 H Potassium Chloride 108.2 H BUN Creatinine Glucose 145 H 191 H POC Glucose Uric Acid Calcium 7.8 L Phosphorus AST 67 H Alkaline Phosphatase Ammonia C-Reactive Protein 25.00 H Total Protein 5.1 L D Albumin 2.5 L TSH Urine WBC (Auto) Urine Creatinine Urine Total Protein Coronavirus (PCR) 11/25/21 11/26/21 11/26/21 18:16 05:00 08:01 WBC RBC Hgb Hct MCV MCHC RDW Lymph % (Auto) Williams % (Auto) Lymph # (Auto) Seg Neutrophils % Seg Neuts % (Manual) Lymphocytes % (Manual) Monocytes % (Manual) Basophils % (Manual) Seg Neutrophils # Lymphocytes # (Manual) Basophils # (Manual) D-Dimer Sodium Potassium Chloride BUN 28 H Creatinine 1.7 H Glucose 236 H POC Glucose 149 H 206 H Uric Acid Calcium 7.8 L Phosphorus AST 51 H Alkaline Phosphatase 233 H Ammonia C-Reactive Protein Total Protein 5.9 L Albumin 2.3 L TSH Urine WBC (Auto) Urine Creatinine Urine Total Protein Coronavirus (PCR) 11/26/21 11/26/21 11/26/21 08:21 11:09 16:37 WBC RBC Hgb Hct MCV MCHC RDW Lymph % (Auto) Williams % (Auto) Lymph # (Auto) Seg Neutrophils % Seg Neuts % (Manual) Lymphocytes % (Manual) Monocytes % (Manual) Basophils % (Manual) Seg Neutrophils # Lymphocytes # (Manual) Basophils # (Manual) D-Dimer Sodium Potassium Chloride BUN 28 H Creatinine 1.5 H Glucose POC Glucose 198 H 154 H Uric Acid Calcium Phosphorus AST Alkaline Phosphatase Ammonia C-Reactive Protein Total Protein Albumin TSH Urine WBC (Auto) Urine Creatinine Urine Total Protein Coronavirus (PCR) 11/26/21 11/26/21 11/27/21 16:44 22:20 05:17 WBC 14.0 H RBC 3.12 L Hgb 9.1 L Hct 29.3 L MCV MCHC 31 L RDW Lymph % (Auto) Williams % (Auto) Lymph # (Auto) Seg Neutrophils % Seg Neuts % (Manual) Lymphocytes % (Manual) Monocytes % (Manual) Basophils % (Manual) Seg Neutrophils # Lymphocytes # (Manual) Basophils # (Manual) D-Dimer 1279.46 H Sodium Potassium Chloride BUN Creatinine Glucose POC Glucose 173 H Uric Acid Calcium Phosphorus AST Alkaline Phosphatase Ammonia C-Reactive Protein Total Protein Albumin TSH Urine WBC (Auto) Urine Creatinine Urine Total Protein Coronavirus (PCR) 11/27/21 11/27/21 11/27/21 05:17 05:17 11:22 WBC RBC Hgb Hct MCV MCHC RDW Lymph % (Auto) Williams % (Auto) Lymph # (Auto) Seg Neutrophils % Seg Neuts % (Manual) Lymphocytes % (Manual) Monocytes % (Manual) Basophils % (Manual) Seg Neutrophils # Lymphocytes # (Manual) Basophils # (Manual) D-Dimer Sodium 147 H Potassium Chloride 107.3 H BUN 37 H Creatinine 1.6 H Glucose 197 H POC Glucose 185 H Uric Acid Calcium 8.1 L Phosphorus AST Alkaline Phosphatase 211 H Ammonia C-Reactive Protein 13.00 H Total Protein 5.6 L Albumin 2.5 L TSH Urine WBC (Auto) Urine Creatinine Urine Total Protein Coronavirus (PCR) 11/27/21 11/27/21 11/27/21 17:35 21:12 Unknown WBC RBC Hgb Hct MCV MCHC RDW Lymph % (Auto) Williams % (Auto) Lymph # (Auto) Seg Neutrophils % Seg Neuts % (Manual) Lymphocytes % (Manual) Monocytes % (Manual) Basophils % (Manual) Seg Neutrophils # Lymphocytes # (Manual) Basophils # (Manual) D-Dimer Sodium Potassium Chloride BUN Creatinine Glucose POC Glucose 144 H 127 H Uric Acid Calcium Phosphorus AST Alkaline Phosphatase Ammonia C-Reactive Protein Total Protein Albumin TSH Urine WBC (Auto) 13.0 H Urine Creatinine Urine Total Protein Coronavirus (PCR) 11/27/21 11/27/21 11/28/21 Unknown Unknown 06:47 WBC RBC Hgb Hct MCV MCHC RDW Lymph % (Auto) Williams % (Auto) Lymph # (Auto) Seg Neutrophils % Seg Neuts % (Manual) Lymphocytes % (Manual) Monocytes % (Manual) Basophils % (Manual) Seg Neutrophils # Lymphocytes # (Manual) Basophils # (Manual) D-Dimer Sodium 148 H Potassium 3.4 L Chloride 107.4 H BUN 43 H Creatinine 1.6 H Glucose 226 H POC Glucose Uric Acid 9.8 H Calcium 8.3 L Phosphorus AST Alkaline Phosphatase 197 H Ammonia C-Reactive Protein Total Protein 5.6 L Albumin 2.5 L TSH Urine WBC (Auto) Urine Creatinine 80.9 H Urine Total Protein 43 H Coronavirus (PCR) 11/28/21 11/28/21 11/28/21 07:28 11:52 12:59 WBC RBC Hgb Hct MCV MCHC RDW Lymph % (Auto) Williams % (Auto) Lymph # (Auto) Seg Neutrophils % Seg Neuts % (Manual) Lymphocytes % (Manual) Monocytes % (Manual) Basophils % (Manual) Seg Neutrophils # Lymphocytes # (Manual) Basophils # (Manual) D-Dimer Sodium Potassium Chloride BUN Creatinine Glucose POC Glucose 192 H 210 H Uric Acid Calcium Phosphorus AST Alkaline Phosphatase Ammonia 12.0 L C-Reactive Protein Total Protein Albumin TSH Urine WBC (Auto) Urine Creatinine Urine Total Protein Coronavirus (PCR) 11/28/21 11/28/21 11/29/21 17:44 22:20 05:15 WBC RBC 3.31 L Hgb 9.9 L Hct 31.5 L MCV 95 H MCHC RDW 15.5 H Lymph % (Auto) Williams % (Auto) Lymph # (Auto) Seg Neutrophils % Seg Neuts % (Manual) Lymphocytes % (Manual) Monocytes % (Manual) Basophils % (Manual) Seg Neutrophils # Lymphocytes # (Manual) Basophils # (Manual) D-Dimer Sodium Potassium Chloride BUN Creatinine Glucose POC Glucose 213 H 163 H Uric Acid Calcium Phosphorus AST Alkaline Phosphatase Ammonia C-Reactive Protein Total Protein Albumin TSH Urine WBC (Auto) Urine Creatinine Urine Total Protein Coronavirus (PCR) 11/29/21 11/29/21 11/29/21 05:15 11:11 15:45 WBC RBC Hgb Hct MCV MCHC RDW Lymph % (Auto) Williams % (Auto) Lymph # (Auto) Seg Neutrophils % Seg Neuts % (Manual) Lymphocytes % (Manual) Monocytes % (Manual) Basophils % (Manual) Seg Neutrophils # Lymphocytes # (Manual) Basophils # (Manual) D-Dimer Sodium 152 H Potassium 3.2 L Chloride 114.1 H BUN 41 H Creatinine 1.4 H Glucose POC Glucose 149 H 212 H Uric Acid Calcium Phosphorus AST Alkaline Phosphatase Ammonia C-Reactive Protein Total Protein Albumin TSH Urine WBC (Auto) Urine Creatinine Urine Total Protein Coronavirus (PCR) 11/29/21 11/30/21 11/30/21 21:54 07:20 11:23 WBC RBC Hgb Hct MCV MCHC RDW Lymph % (Auto) Williams % (Auto) Lymph # (Auto) Seg Neutrophils % Seg Neuts % (Manual) Lymphocytes % (Manual) Monocytes % (Manual) Basophils % (Manual) Seg Neutrophils # Lymphocytes # (Manual) Basophils # (Manual) D-Dimer Sodium Potassium Chloride BUN Creatinine Glucose POC Glucose 197 H 150 H 180 H Uric Acid Calcium Phosphorus AST Alkaline Phosphatase Ammonia C-Reactive Protein Total Protein Albumin TSH Urine WBC (Auto) Urine Creatinine Urine Total Protein Coronavirus (PCR) 11/30/21 11/30/21 12/01/21 15:55 21:28 06:47 WBC RBC 3.39 L Hgb 10.2 L Hct 32.5 L MCV 96 H MCHC RDW 15.3 H Lymph % (Auto) Williams % (Auto) Lymph # (Auto) Seg Neutrophils % Seg Neuts % (Manual) Lymphocytes % (Manual) Monocytes % (Manual) Basophils % (Manual) Seg Neutrophils # Lymphocytes # (Manual) Basophils # (Manual) D-Dimer Sodium Potassium Chloride BUN Creatinine Glucose POC Glucose 184 H 214 H Uric Acid Calcium Phosphorus AST Alkaline Phosphatase Ammonia C-Reactive Protein Total Protein Albumin TSH Urine WBC (Auto) Urine Creatinine Urine Total Protein Coronavirus (PCR) 12/01/21 12/01/21 12/01/21 06:47 07:51 11:01 WBC RBC Hgb Hct MCV MCHC RDW Lymph % (Auto) Williams % (Auto) Lymph # (Auto) Seg Neutrophils % Seg Neuts % (Manual) Lymphocytes % (Manual) Monocytes % (Manual) Basophils % (Manual) Seg Neutrophils # Lymphocytes # (Manual) Basophils # (Manual) D-Dimer Sodium 164 H* D Potassium 3.1 L Chloride 122.5 H BUN 35 H Creatinine Glucose 200 H POC Glucose 174 H 170 H Uric Acid Calcium Phosphorus AST Alkaline Phosphatase Ammonia C-Reactive Protein Total Protein Albumin TSH Urine WBC (Auto) Urine Creatinine Urine Total Protein Coronavirus (PCR) 12/01/21 12/01/21 12/02/21 17:17 21:24 07:31 WBC RBC Hgb Hct MCV MCHC RDW Lymph % (Auto) Williams % (Auto) Lymph # (Auto) Seg Neutrophils % Seg Neuts % (Manual) Lymphocytes % (Manual) Monocytes % (Manual) Basophils % (Manual) Seg Neutrophils # Lymphocytes # (Manual) Basophils # (Manual) D-Dimer Sodium Potassium Chloride BUN Creatinine Glucose POC Glucose 134 H 180 H 179 H Uric Acid Calcium Phosphorus AST Alkaline Phosphatase Ammonia C-Reactive Protein Total Protein Albumin TSH Urine WBC (Auto) Urine Creatinine Urine Total Protein Coronavirus (PCR) 12/02/21 12/02/21 12/02/21 09:13 10:45 13:12 WBC RBC Hgb Hct MCV MCHC RDW Lymph % (Auto) Williams % (Auto) Lymph # (Auto) Seg Neutrophils % Seg Neuts % (Manual) Lymphocytes % (Manual) Monocytes % (Manual) Basophils % (Manual) Seg Neutrophils # Lymphocytes # (Manual) Basophils # (Manual) D-Dimer Sodium 163 H* 159 H Potassium 3.1 L 3.4 L Chloride 122.5 H 121.4 H BUN 28 H 28 H Creatinine 1.4 H Glucose 244 H 250 H POC Glucose 211 H Uric Acid Calcium Phosphorus AST Alkaline Phosphatase Ammonia C-Reactive Protein Total Protein Albumin TSH Urine WBC (Auto) Urine Creatinine Urine Total Protein Coronavirus (PCR) 12/02/21 12/02/21 12/02/21 13:27 17:01 21:28 WBC RBC Hgb Hct MCV MCHC RDW Lymph % (Auto) Williams % (Auto) Lymph # (Auto) Seg Neutrophils % Seg Neuts % (Manual) Lymphocytes % (Manual) Monocytes % (Manual) Basophils % (Manual) Seg Neutrophils # Lymphocytes # (Manual) Basophils # (Manual) D-Dimer Sodium Potassium Chloride BUN Creatinine Glucose POC Glucose 204 H 120 H 157 H Uric Acid Calcium Phosphorus AST Alkaline Phosphatase Ammonia C-Reactive Protein Total Protein Albumin TSH Urine WBC (Auto) Urine Creatinine Urine Total Protein Coronavirus (PCR) 12/03/21 04:00 WBC RBC Hgb Hct MCV MCHC RDW Lymph % (Auto) Williams % (Auto) Lymph # (Auto) Seg Neutrophils % Seg Neuts % (Manual) Lymphocytes % (Manual) Monocytes % (Manual) Basophils % (Manual) Seg Neutrophils # Lymphocytes # (Manual) Basophils # (Manual) D-Dimer Sodium 157 H Potassium 3.5 L Chloride 118.7 H BUN 21 H Creatinine Glucose 258 H POC Glucose Uric Acid Calcium Phosphorus 1.90 L AST Alkaline Phosphatase Ammonia C-Reactive Protein Total Protein Albumin TSH Urine WBC (Auto) Urine Creatinine Urine Total Protein Coronavirus (PCR) Assessment and Plan Assessment and Plan Assessment and plan: #Acute metabolic encephalopathy possibly multi factorial in part is related to -underlying infection,COVID-19 positive -ROSANA -Possible delirium -possible decadron add to his confusion/Agitation? -Hypernatremia,NA#163 -CRP#13 -Bun/Cr#28/1.4 improved -Ammonia#13 -Avoid sedation -exposure to day light -R/O CVA could not do MRI due to agitation -consider EEG as needed #Acute hypoxic respiratory failure secondary to COVID-19improving #COVID-19 pneumonia -daily Decadron x10 days (end date 12/05/2021). Not a candidate for remdesivir. Pulmonary consulted; Infectious disease consulted; #Insulin dependent type II diabetes mellitus - hemoglobin A1c: Pending #Hypertension Hydralazine 10 mg IV every 6 hours as needed. We will monitor the blood pressure closely # ROSANA (acute kidney injury) secondary to vasomotor nephropathy Continue IV fluids per nephrology recommendations # Hypokalemia Repleted. Continue to monitor #Hypernatremia Sodium 164 Nephrology consulted; appreciate recs Starting D5W at 125 cc/hour Monitor electrolytes # Urinary tract infectionresolved Completed IV antibiotic therapy Urine cultures negative for bacteria and positive for Natalia Blood cultures-no growth #Constipation Continue stool softener #CAD #Cardiomyopathy #Chronic HFrEF Cardiology consulted; appreciate recs TTE revealing EF 35 to 40% Continue low-dose beta-tee #Bradycardia Heart rate in the low low 50s Likely secondary to beta-tee #Hyperglycemia Continue insulin sliding scale coverage Blood glucose goal [id number] while inpatient. Continue to monitor #Severe debility Consulted physical therapy and Occupational Therapy; appreciate recs will follow
--- NOTE | 2021-12-03 09:58 | Progress Note ---
Subjective Date of service: 12/10/21 Principal diagnosis: Acute encephalopathy Interval history: mpression * Nonoliguric acute kidney injury secondary to prerenal azotemia (FeNa 0.5%) --Baseline SCr 13mg/dL * Acute hypoxic respiratory failure secondary to COVID 19 PNA * Severe COVID-19 pneumonia * Hypernatremia * Hypokalemia * Acute encephalopathy * Cardiomyopathy - EF 35% * Anemia * Urinary tract infection - Klebsiella pneumonia * Mild left hydronephrosis Recommendations * Renal function now at baseline * Na is better today at last check, continue d5w * patient note recieving ivfs as ordered * pulm note reviewed, avoid over diuresis with hypernatremia * Continue to hold MIREYA inhibitor/ARB at this time * Encourage free water intake * Management of COVID-19 PNA per ID and primary team * Abx per ID * Maintain MAP >65 * Avoid potential nephrotoxins * Monitor lytes, fluid balance closely * Strict I/O Subjective Principal diagnosis: Acute encephalopathy Interval history: Patient has no complaints. No acute events overnight Objective - General Appearance exam deferred, primary team exam noted Objective - Vital Signs Vital signs: Vital Signs - 12hr 12/02/21 12/03/21 22:00 04:40 Temperature 97.8 F Pulse Rate 75 Respiratory 16 Rate Blood Pressure 132/94 O2 Sat by Pulse 95 85 Oximetry - Lab 12/01/21 06:47 12/03/21 04:00 Most recent lab results Calcium 8.4 mg/dL (8.4-10.2) 12/03/21 04:00 Phosphorus 1.90 mg/dL (2.5-4.5) L 12/03/21 04:00 Magnesium 2.30 mg/dL (1.7-2.3) 12/03/21 04:00 Urine Creatinine 80.9 mg/dL (0.1-20.0) H 11/27/21 Unknown Urine Sodium 36 mmol/L 11/27/21 Unknown Urine Total Protein 43 mg/dL (5-11.8) H 11/27/21 Unknown Medications & Allergies - Medications Allergies/Adverse Reactions: Allergies No Known Allergies Allergy (Verified 11/22/21 05:55) Home Medications: Home Medications Medication Instructions Recorded Confirmed Last Taken Type Furosemide [Lasix TAB] 80 mg PO TID 11/24/21 11/24/21 Unknown History Gabapentin [Neurontin] 300 mg PO BID 11/24/21 11/27/21 11/19/21 09:12 History 300 mg Sacubitril/Valsartan [Entresto 1 tab PO BID 11/24/21 11/27/21 11/19/21 09:12 History 49-51 mg] 1 tab Spironolactone [Aldactone] 25 mg PO QDAY 11/24/21 11/27/21 11/19/21 09:12 History 25 mg Tamsulosin [Flomax] 0.4 mg PO QDAY 11/24/21 11/27/21 11/18/21 22:02 History 0.4 mg carvediloL [Coreg] 6.25 mg PO BID 11/24/21 11/27/21 11/19/21 09:12 History 6.25mg AtorvaSTATin [Lipitor] 40 mg PO QHS 11/27/21 11/27/21 11/19/21 09:12 History 40 mg Insulin Glargine,Hum.rec.anlog 12 unit SQ QHS 11/27/21 11/27/21 11/18/21 22:02 History [Lantus Solostar] 12 units Insulin Lispro [Admelog] 1 - 12 unit SQ TIDAC 11/27/21 11/27/21 11/19/21 08:32 History 6 units Insulin Lispro [Admelog] 4 unit SQ TID 11/27/21 11/27/21 11/19/21 08:33 History 4 units oxyCODONE /ACETAMINOPHEN [Percocet 1 tab PO Q6HR PRN 11/27/21 11/27/21 11/19/21 03:57 History 5/325] 1 tab Active Medications: Generic Name Dose Route Start Last Admin Trade Name Freq PRN Reason Stop Dose Admin Acetaminophen 650 mg 11/22/21 05:48 Acetaminophen 325 Mg Tab PO Q4H PRN Pain MILD(1-3)/Fever >100.5/BRODY Albuterol 2.5 mg 11/25/21 12:00 Albuterol 2.5 Mg/3 Ml Nebu IH Q4HRT PRN Shortness Of Breath Dexamethasone 6 mg 11/26/21 12:00 12/02/21 10:42 Dexamethasone 4 Mg/Ml Vial IV 12/05/21 10:01 6 mg Q24HR NANDINI Administration Dextrose 50 ml 11/22/21 05:48 Dextrose 50% In Water (25gm) 50 Ml Syringe IV Q30MIN PRN Hypoglycemia Protocol Dextrose 50 ml 12/02/21 15:42 Dextrose 50% In Water (25gm) 50 Ml Syringe IV Q30MIN PRN Hypoglycemia Protocol Docusate Sodium 100 mg 11/25/21 22:00 12/02/21 21:27 Docusate Sodium 100 Mg Cap PO 100 mg BID NANDINI Administration Enoxaparin Sodium 70 mg 11/26/21 12:30 12/02/21 21:27 Enoxaparin 80 Mg/0.8 Ml Inj SUB-Q 70 mg Q12HR NANDINI Administration Fluconazole 100 mg 11/29/21 15:00 12/02/21 17:02 Fluconazole 100 Mg Tab PO 12/03/21 15:01 Not Given Q24H [facility] Protocol Hydralazine HCl 10 mg 11/22/21 05:58 Hydralazine 20 Mg/1 Ml Inj IV Q6H PRN Blood Pressure Hydromorphone HCl 0.5 mg 11/22/21 05:48 11/23/21 06:02 Hydromorphone 1 Mg/1 Ml Inj IV 0.5 mg Q3H PRN Administration Pain , Severe (7-10) Dextrose 1,000 mls @ 125 mls/hr 12/02/21 08:00 12/02/21 22:20 D5w IV 125 mls/hr DIRECT NANDINI Administration Insulin Human Isoph/Insulin Regular 10 unit 12/02/21 17:00 12/03/21 08:53 Insulin Nph/Regular 70/30 Inj SUB-Q 10 unit BIDDIAB NANDINI Administration Insulin Human Lispro 0 unit 11/22/21 07:30 12/03/21 08:51 Insulin Lispro 100 Unit/Ml SUB-Q 4 unit ACHS NANDINI Administration Protocol Metoprolol Tartrate 12.5 mg 11/30/21 22:00 12/02/21 21:27 Metoprolol Tartrate 25 Mg Tab PO 12.5 mg BID NANDINI Administration Morphine Sulfate 2 mg 11/22/21 05:48 12/02/21 21:28 Morphine 2 Mg/1 Ml Inj IV 2 mg Q4H PRN Administration Pain, Moderate (4-6) Ondansetron HCl 4 mg 11/22/21 05:48 12/02/21 21:28 Ondansetron 4 Mg/2 Ml Inj IV 4 mg Q8H PRN Administration Nausea And Vomiting Sodium Chloride 10 ml 11/22/21 10:00 12/02/21 22:27 Sodium Chloride 0.9% 10 Ml Flush Syringe IV 10 ml BID NANDINI Administration Sodium Chloride 10 ml 11/22/21 05:48 Sodium Chloride 0.9% 10 Ml Flush Syringe IV PRN PRN LINE FLUSH
--- NOTE | 2021-12-03 11:20 | Progress Note ---
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 Currently anticoagulated on Lovenox COPD DM Echo 11/27/2021- EF 40 to 45%, mild global hypokinesis of left ventricle. Right ventricular systolic function is normal. Mild aortic regurgitation. Trace tricuspid and pulmonic regurgitation Echo 12/01/2020- LVEF 35 - 40%. LV systolic function is moderately decreased,Grade I (mild) diastolic dysfunction. There were technical limitations during this study due to patient positioning and patient body habitus. Poor views unable to evaluate any of the valves PET Stress 01/31/2021- Abnormal pharmacological PET stress test. There is a small sized mild to moderate intensity partially reversible perfusion defect seen in the apical inferior wall consistent with infarct/scar and a small amount of ischemia. SSS 3, SRS 1, SDS 2. TID 0.84(normal).Severely depressed resting LV systolic function with a calculated LVEF 22% at rest which increased to 29% with peak stress. Global LV hypokinesis. Coronary calcifications were not seen by chest CT, however CT for attenuation correction is not sensitive. Stress ECG was negative for ischemia. No symptoms of chest pain with vasodilator stress Outpatient medications: Coreg 6.25 mg p.o. twice daily atorvastatin 40 mg p.o. nightly, spironolactone 25 mg p.o. daily, Entresto 49-51 mg p.o. twice daily, Lasix 80 mg p.o. 3 times daily Plan: Patient noncompliant with skid wrapper No MIREYA or ARB due to elevated creatinine per nephrology recs Will hold statin therapy due to elevated liver enzymes Continue present management Patient seen in conjunction with Dr. Javier who agrees with this plan of care - Patient Problems (1) Sinus bradycardia Current Visit: Yes Status: Acute (2) COVID-19 Current Visit: Yes Status: Acute (3) ROSANA (acute kidney injury) Current Visit: Yes Status: Acute (4) Acute metabolic encephalopathy Current Visit: Yes Status: Acute (5) Metabolic encephalopathy Current Visit: Yes Status: Acute Subjective Date of service: 12/03/21 Principal diagnosis: Acute encephalopathy Interval history: Patient resting in bed on oxygen being weaned. Patient remains altered Patient noncompliant with monitor Objective Vital Signs Temp Pulse Resp BP BP Pulse Ox 12/03/21 04:40 97.8 F 75 16 132/94 85 12/02/21 22:00 95 12/02/21 21:32 98.4 F 20 142/80 12/02/21 18:18 95 12/02/21 17:08 98.4 F 71 16 136/58 81 L 12/02/21 16:05 94 12/02/21 12:20 92 12/02/21 12:00 97.6 F 80 16 145/70 85 - Physical Examination General: Other (AMS) HEENT: Positive: PERRL, Mucus Membranes Dry Neck: Positive: trachea midline Cardiac: Positive: Reg Rate and Rhythm Lungs: Positive: Decreased Breath Sounds Neuro: Positive: Grossly Intact Abdomen: Positive: Soft Skin: Negative: Rash, Suspicious Lesions, Ulceration Extremities: Present: upper extr. pulses. Absent: edema - Labs and Meds Comprehensive Metabolic Panel 12/02/21 12/03/21 Range/Units 13:12 04:00 Sodium 159 H 157 H (137-145) mmol/L Potassium 3.4 L 3.5 L (3.6-5.0) mmol/L Chloride 121.4 H 118.7 H (98-107) mmol/L Carbon Dioxide 24 28 (22-30) mmol/L BUN 28 H 21 H (9-20) mg/dL Creatinine 1.3 1.3 (0.8-1.3) mg/dL Glucose 250 H 258 H (75-100) mg/dL Calcium 8.5 8.4 (8.4-10.2) mg/dL - Imaging and Cardiology Echo: report reviewed - EKG Sinus rhythms and dysrhythmias: sinus rhythm
[2021-12-03] MEDS: DOCUSATE SODIUM 100 MG CAP PO SCH ×2 (12:23→21:27)
[2021-12-03] MEDS: dexAMETHasone 4 MG/ML VIAL IV SCH (12:24)
[2021-12-03] MEDS: ENOXAPARIN 80 MG/0.8 ML INJ SUB-Q SCH ×2 (12:24→21:28)
[2021-12-03] MEDS: DEXTROSE 5% IN WATER 1,000 ML IV SCH (12:29)
--- NOTE | 2021-12-03 14:04 | Progress Note ---
Assessment and Plan Assessment and plan: #Acute metabolic encephalopathyimproving -Etiology unknown. Unsure if secondary to COVID-19 pneumonia versus hypernatremia. -Baseline mentation is currently unknown. Neurology consulted; appreciate recs. Holding on chemical sedation unless absolutely necessary. Continue to monitor. #Acute hypoxic respiratory failure secondary to COVID-19resolved #COVID-19 pneumonia Patient weaned from high flow nasal cannula to nasal cannula 4 L Continue daily Decadron x10 days (end date 12/05/2021). Not a candidate for remdesivir. Pulmonary consulted; appreciate recs Infectious disease consulted; appreciate recs Continue weaning as tolerated Proning as tolerated #Insulin dependent type II diabetes mellitus - hemoglobin A1c: Pending - current regimen: NPH 10 units twice daily - blood glucose goal 140-180 while inpatient - continue to monitor #Hypertension Hydralazine 10 mg IV every 6 hours as needed. We will monitor the blood pressure closely # ROSANA (acute kidney injury) secondary to vasomotor nephropathyresolved Creatinine 1.3 (currently at baseline) Patient still has prerenal azotemia Nephrology consulted; appreciate recs Continue IV fluids per nephrology recommendations # Hypokalemia Repleted. Continue to monitor #Hypernatremiaimproving Sodium 164-->157 Nephrology consulted; appreciate recs Continue D5W at 125 cc/hour Monitor electrolytes # Urinary tract infectionresolved Completed IV antibiotic therapy Urine cultures negative for bacteria and positive for Natalia Blood cultures-no growth #Constipation Continue stool softener #CAD #Cardiomyopathy #Chronic HFrEF Cardiology consulted; appreciate recs TTE revealing EF 35 to 40% Continue low-dose beta-tee #Bradycardia Heart rate in the low low 50s Likely secondary to beta-tee #Hyperglycemia Continue insulin sliding scale coverage Blood glucose goal [id number] while inpatient. Continue to monitor #Severe debility Consulted physical therapy and Occupational Therapy; recommend subacute rehab #Advanced care planning -Disease education conducted, care plan discussed, diagnoses discussed, prognosis discussed, and patient acknowledges understanding with care plan -Time: +30 min Disposition Plan: Continue medical management Total Time Spent with Patient (Minutes): 45 minutes History Interval history: No acute events overnight. Hospitalist Physical - Constitutional Vitals: Temp Pulse Resp BP Pulse Ox 97.8 F 75 16 132/94 85 12/03/21 04:40 12/03/21 04:40 12/03/21 04:40 12/03/21 04:40 12/03/21 04:40 General appearance: Present: no acute distress, cachectic, other (Confused, not responding to questions. ill looking) - EENT Eyes: Present: PERRL, EOM intact ENT: hearing intact, clear oral mucosa, poor dentition, edentulous - Neck Neck: Present: supple, normal ROM - Respiratory Respiratory effort: normal Respiratory: bilateral: diminished - Cardiovascular Rhythm: regular Heart Sounds: Present: S1 & S2 - Extremities Extremities: no ischemia, pulses intact, pulses symmetrical, No edema, normal temperature, normal color, Full ROM Peripheral Pulses: within normal limits - Abdominal General gastrointestinal: soft, non-tender, non-distended, normal bowel sounds - Integumentary Integumentary: Present: clear, warm, dry - Psychiatric Psychiatric: appropriate mood/affect, other (Patient still confused but conversation is more coherent) - Neurologic Neurologic: CNII-XII intact - Allied Health Allied health notes reviewed: nursing Results - Labs CBC & Chem 7: 12/01/21 06:47 12/03/21 04:00 Labs: Laboratory Last Values WBC 6.4 K/mm3 (4.5-11.0) 12/01/21 06:47 RBC 3.39 M/mm3 (3.65-5.03) L 12/01/21 06:47 Hgb 10.2 gm/dl (11.8-15.2) L 12/01/21 06:47 Hct 32.5 % (35.5-45.6) L 12/01/21 06:47 MCV 96 fl (84-94) H 12/01/21 06:47 MCH 30 pg (28-32) 12/01/21 06:47 MCHC 32 % (32-34) 12/01/21 06:47 RDW 15.3 % (13.2-15.2) H 12/01/21 06:47 Plt Count 336 K/mm3 (140-440) 12/01/21 06:47 Lymph % (Auto) 10.5 % (13.4-35.0) L 11/25/21 05:27 [place] % (Auto) 6.8 % (0.0-7.3) 11/25/21 05:27 Eos % (Auto) 0.2 % (0.0-4.3) 11/25/21 05:27 Baso % (Auto) 0.5 % (0.0-1.8) 11/25/21 05:27 Lymph # (Auto) 1.1 K/mm3 (1.2-5.4) L 11/25/21 05:27 [place] # (Auto) 0.7 K/mm3 (0.0-0.8) 11/25/21 05:27 Eos # (Auto) 0.0 K/mm3 (0.0-0.4) 11/25/21 05:27 Baso # (Auto) 0.1 K/mm3 (0.0-0.1) 11/25/21 05:27 Add Manual Diff Complete 11/21/21 19:36 Total Counted 100 11/21/21 19:36 Seg Neutrophils % 82.0 % (40.0-70.0) H 11/25/21 05:27 Seg Neuts % (Manual) 79.0 % (40.0-70.0) H 11/21/21 19:36 Lymphocytes % (Manual) 10.0 % (13.4-35.0) L 11/21/21 19:36 Monocytes % (Manual) 8.0 % (0.0-7.3) H 11/21/21 19:36 Basophils % (Manual) 3.0 % (0.0-1.8) H 11/21/21 19:36 Nucleated RBC % Not Reportable 11/21/21 19:36 Seg Neutrophils # 8.7 K/mm3 (1.8-7.7) H 11/25/21 05:27 Seg Neutrophils # Man 5.3 K/mm3 (1.8-7.7) 11/21/21 19:36 Band Neutrophils # 0.0 K/mm3 11/21/21 19:36 Lymphocytes # (Manual) 0.7 K/mm3 (1.2-5.4) L 11/21/21 19:36 Abs React Lymphs (Man) 0.0 K/mm3 11/21/21 19:36 Monocytes # (Manual) 0.5 K/mm3 (0.0-0.8) 11/21/21 19:36 Eosinophils # (Manual) 0.0 K/mm3 (0.0-0.4) 11/21/21 19:36 Basophils # (Manual) 0.2 K/mm3 (0.0-0.1) H 11/21/21 19:36 Metamyelocytes # 0.0 K/mm3 11/21/21 19:36 Myelocytes # 0.0 K/mm3 11/21/21 19:36 Promyelocytes # 0.0 K/mm3 11/21/21 19:36 Blast Cells # 0.0 K/mm3 11/21/21 19:36 WBC Morphology Not Reportable 11/21/21 19:36 Hypersegmented Neuts Not Reportable 11/21/21 19:36 Hyposegmented Neuts Not Reportable 11/21/21 19:36 Hypogranular Neuts Not Reportable 11/21/21 19:36 Smudge Cells Not Reportable 11/21/21 19:36 Toxic Granulation Not Reportable 11/21/21 19:36 Toxic Vacuolation Not Reportable 11/21/21 19:36 Dohle Bodies Not Reportable 11/21/21 19:36 Pelger-Huet Anomaly Not Reportable 11/21/21 19:36 Luan Rods Not Reportable 11/21/21 19:36 Platelet Estimate Consistent w auto 11/21/21 19:36 Clumped Platelets Not Reportable 11/21/21 19:36 Plt Clumps, EDTA Not Reportable 11/21/21 19:36 Large Platelets Not Reportable 11/21/21 19:36 Giant Platelets Not Reportable 11/21/21 19:36 Platelet Satelliting Not Reportable 11/21/21 19:36 Plt Morphology Comment Not Reportable 11/21/21 19:36 RBC Morphology Normal 11/21/21 19:36 Dimorphic RBCs Not Reportable 11/21/21 19:36 Polychromasia Not Reportable 11/21/21 19:36 Hypochromasia Not Reportable 11/21/21 19:36 Poikilocytosis Not Reportable 11/21/21 19:36 Anisocytosis Not Reportable 11/21/21 19:36 Microcytosis Not Reportable 11/21/21 19:36 Macrocytosis Not Reportable 11/21/21 19:36 Spherocytes Not Reportable 11/21/21 19:36 Pappenheimer Bodies Not Reportable 11/21/21 19:36 Sickle Cells Not Reportable 11/21/21 19:36 Target Cells Not Reportable 11/21/21 19:36 Tear Drop Cells Not Reportable 11/21/21 19:36 Ovalocytes Not Reportable 11/21/21 19:36 Helmet Cells Not Reportable 11/21/21 19:36 Christie-Heimdal Bodies Not Reportable 11/21/21 19:36 [place] Rings Not Reportable 11/21/21 19:36 [place] Cells Not Reportable 11/21/21 19:36 Bite Cells Not Reportable 11/21/21 19:36 Crenated Cell Not Reportable 11/21/21 19:36 Elliptocytes Not Reportable 11/21/21 19:36 Acanthocytes (Spur) Not Reportable 11/21/21 19:36 Rouleaux Not Reportable 11/21/21 19:36 Hemoglobin C Crystals Not Reportable 11/21/21 19:36 Schistocytes Not Reportable 11/21/21 19:36 Malaria parasites Not Reportable 11/21/21 19:36 Kalia Bodies Not Reportable 11/21/21 19:36 Hem Pathologist Commnt No 11/21/21 19:36 D-Dimer 1279.46 ng/mlDDU (0-234) H 11/26/21 16:44 Sodium 157 mmol/L (137-145) H 12/03/21 04:00 Potassium 3.5 mmol/L (3.6-5.0) L 12/03/21 04:00 Chloride 118.7 mmol/L (98-107) H 12/03/21 04:00 Carbon Dioxide 28 mmol/L (22-30) 12/03/21 04:00 Anion Gap 14 mmol/L 12/03/21 04:00 BUN 21 mg/dL (9-20) H 12/03/21 04:00 Creatinine 1.3 mg/dL (0.8-1.3) 12/03/21 04:00 Estimated GFR > 60 ml/min 12/03/21 04:00 BUN/Creatinine Ratio 16 % 12/03/21 04:00 Glucose 258 mg/dL (75-100) H 12/03/21 04:00 POC Glucose 107 mg/dL (70-105) H 12/03/21 12:12 Osmolality 316 Mosm/kg 11/27/21 Unknown Uric Acid 9.8 mg/dL (3.5-7.6) H 11/27/21 Unknown Calcium 8.4 mg/dL (8.4-10.2) 12/03/21 04:00 Phosphorus 1.90 mg/dL (2.5-4.5) L 12/03/21 04:00 Magnesium 2.30 mg/dL (1.7-2.3) 12/03/21 04:00 Total Bilirubin 0.40 mg/dL (0.1-1.2) 11/28/21 06:47 AST 22 units/L (5-40) 11/28/21 06:47 ALT 28 units/L (7-56) 11/28/21 06:47 Alkaline Phosphatase 197 units/L (35-129) H 11/28/21 06:47 Ammonia 12.0 umol/L (25-60) L 11/28/21 12:59 C-Reactive Protein 13.00 mg/dL (0.00-1.30) H 11/27/21 05:17 Total Protein 5.6 g/dL (6.3-8.2) L 11/28/21 06:47 Albumin 2.5 g/dL (3.9-5) L 11/28/21 06:47 Albumin/Globulin Ratio 0.8 % 11/28/21 06:47 Procalcitonin 3.10 ng/mL (<0.15) 11/26/21 08:21 TSH 4.800 mlU/mL (0.270-4.200) H 11/21/21 19:37 Urine Color Kimberli (Yellow) 11/27/21 Unknown Urine Turbidity Slightly-cloudy (Clear) 11/27/21 Unknown Urine pH 5.0 (5.0-7.0) 11/27/21 Unknown Ur Specific [place] 1.013 (1.003-1.030) 11/27/21 Unknown Urine Protein <15 mg/dl mg/dL (Negative) 11/27/21 Unknown Urine Glucose (UA) 50 mg/dL (Negative) 11/27/21 Unknown Urine Ketones Tr mg/dL (Negative) 11/27/21 Unknown Urine Blood Neg (Negative) 11/27/21 Unknown Urine Nitrite Neg (Negative) 11/27/21 Unknown Urine Bilirubin Neg (Negative) 11/27/21 Unknown Urine Urobilinogen < 2.0 mg/dL (<2.0) 11/27/21 Unknown Ur Leukocyte Esterase Neg (Negative) 11/27/21 Unknown Urine WBC (Auto) 13.0 /HPF (0.0-6.0) H 11/27/21 Unknown Urine RBC (Auto) 2.0 /HPF (0.0-6.0) 11/27/21 Unknown U Epithel Cells (Auto) 1.0 /HPF (0-13.0) 11/27/21 Unknown Urine Bacteria (Auto) 1+ /HPF (Negative) 11/27/21 Unknown Urine Mucus Few /HPF 11/27/21 Unknown Urine Yeast (Budding) 2+ /HPF 11/27/21 Unknown Urine Creatinine 80.9 mg/dL (0.1-20.0) H 11/27/21 Unknown Urine Sodium 36 mmol/L 11/27/21 Unknown Urine Total Protein 43 mg/dL (5-11.8) H 11/27/21 Unknown Coronavirus (PCR) Positive (Negative) A 11/23/21 Unknown Fritz/IV: Voiding Method Incontinent Active Medications - Current Medications Current Medications: Generic Name Dose Route Start Last Admin Trade Name Freq PRN Reason Stop Dose Admin Acetaminophen 650 mg 11/22/21 05:48 Acetaminophen 325 Mg Tab PO Q4H PRN Pain MILD(1-3)/Fever >100.5/BRODY Albuterol 2.5 mg 11/25/21 12:00 Albuterol 2.5 Mg/3 Ml Nebu IH Q4HRT PRN Shortness Of Breath Dexamethasone 6 mg 11/26/21 12:00 12/03/21 12:24 Dexamethasone 4 Mg/Ml Vial IV 12/05/21 10:01 6 mg Q24HR NANDINI Administration Dextrose 50 ml 12/02/21 15:42 Dextrose 50% In Water (25gm) 50 Ml Syringe IV Q30MIN PRN Hypoglycemia Protocol Docusate Sodium 100 mg 11/25/21 22:00 12/03/21 12:23 Docusate Sodium 100 Mg Cap PO 100 mg BID NANDINI Administration Enoxaparin Sodium 70 mg 11/26/21 12:30 12/03/21 12:24 Enoxaparin 80 Mg/0.8 Ml Inj SUB-Q 70 mg Q12HR NANDINI Administration Fluconazole 100 mg 11/29/21 15:00 12/02/21 17:02 Fluconazole 100 Mg Tab PO 12/03/21 15:01 Not Given Q24H [facility] Protocol Hydralazine HCl 10 mg 11/22/21 05:58 Hydralazine 20 Mg/1 Ml Inj IV Q6H PRN Blood Pressure Hydromorphone HCl 0.5 mg 11/22/21 05:48 11/23/21 06:02 Hydromorphone 1 Mg/1 Ml Inj IV 0.5 mg Q3H PRN Administration Pain , Severe (7-10) Dextrose 1,000 mls @ 125 mls/hr 12/02/21 08:00 12/03/21 12:29 D5w IV 125 mls/hr DIRECT NANDINI Administration Potassium Phosphate 15 mmol/ 255 mls @ 63 mls/hr 12/03/21 13:59 Sodium Chloride IV 12/03/21 18:01 ONCE ONE Insulin Human Isoph/Insulin Regular 10 unit 12/02/21 17:00 12/03/21 08:53 Insulin Nph/Regular 70/30 Inj SUB-Q 10 unit BIDDIAB NANDINI Administration Insulin Human Lispro 0 unit 11/22/21 07:30 12/03/21 12:52 Insulin Lispro 100 Unit/Ml SUB-Q Not Given ACHS [facility] Protocol Metoprolol Tartrate 12.5 mg 11/30/21 22:00 12/02/21 21:27 Metoprolol Tartrate 25 Mg Tab PO 12.5 mg BID NANDINI Administration Morphine Sulfate 2 mg 11/22/21 05:48 12/02/21 21:28 Morphine 2 Mg/1 Ml Inj IV 2 mg Q4H PRN Administration Pain, Moderate (4-6) Ondansetron HCl 4 mg 11/22/21 05:48 12/02/21 21:28 Ondansetron 4 Mg/2 Ml Inj IV 4 mg Q8H PRN Administration Nausea And Vomiting Sodium Chloride 10 ml 11/22/21 10:00 12/03/21 12:27 Sodium Chloride 0.9% 10 Ml Flush Syringe IV 10 ml BID NANDINI Administration Sodium Chloride 10 ml 11/22/21 05:48 Sodium Chloride 0.9% 10 Ml Flush Syringe IV PRN PRN LINE FLUSH Nutrition/Malnutrition Assess - Dietary Evaluation Nutrition/Malnutrition Findings: Nutrition Notes Start: 11/22/21 14:16 Freq: Status: Active Protocol: Document 11/27/21 09:32 NICKO (Rec: 11/27/21 09:53 NICKO [id number]) Nutrition Notes Initial or Follow up Brief Note Current Diet Cardiac Consistent Carbohydrates Diet (since B ), D Suppl (L 11/27). Height 5 ft 11 in Weight 68.8 kg [place] Body Weight (kg) 78.18 BMI 21.1 Weight change and time frame 5.3 Kg body weight gain in 5 days reported. Weight Status Underweight Subjective/Other Information RD consult for routine F/U on %PO intake of meals and ONS. No report available on %PO intake of meals at the time, last from 11/23, was at 50%. Increase Dietary Supplements to TID. Change to Glucerna to support Diabetes control. ROSANA is improving, according to Progress notes. Percent of energy/protein needs met: Prescribed Cardiac/Consistent Carbohydrates Diet provides for energy/protein needs (1, 977 Kcal/86 g) during LOS; additionally, Dietary Supplements will compensate for possible Poor PO intake of meals with 660 Kcal and 30 g of protein. Current % PO Fair (50-74%) #1 Nutrition Diagnosis Underweight Diagnosis Progress(for reassessment Continues documentation) Nutrition Intervention Change Diet Order: Continue Cardiac Consistent Carbohydrates Diet. Add Supplement/Snack (indicate name/kcal 8 fl oz Glucerna; TID /protein ) Provides kCal: 660 Provides Protein (gm) 30 Goal #1 Compensate, through dietary supplementation, for possible poor or insufficient PO intake of meals during LOS. Follow-Up By: 12/04/21 Additional Comments Continue monitoring food tolerance, %PO intake of meals , and BM.
[2021-12-03] MEDS ORDERED: POTASSIUM PHOSPHATE 15 MMOL in SODIUM CHLORIDE 0.9% 250ML 250 ML IV ONE (15:00)
[2021-12-03] MEDS: METOPROLOL TARTRATE 25 MG TAB PO SCH ×2 (15:16→21:28)
[2021-12-03] MEDS: FLUCONAZOLE 100 MG TAB PO SCH (15:23)
[2021-12-03] MEDS: MORPHINE 2 MG/1 ML INJ IV PRN (21:38)
[2021-12-03] MEDS: ONDANSETRON 4 MG/2 ML INJ IV PRN (21:38)
[2021-12-04] MEDS: DEXTROSE 5% IN WATER 1,000 ML IV SCH (07:10)
[2021-12-04 08:00] LABS: Basophils % (Auto) 0.4 % (0.0-1.8); Eosinophils % (Auto) 0.6 % (0.0-4.3); Hematocrit 33.6 % (35.5-45.6); Hemoglobin 10.4 gm/dl (11.8-15.2); Lymphocytes % (Auto) 17.8 % (13.4-35.0); Mean Corpuscular HGB Conc 31 % (32-34); Mean Corpuscular Volume 95 fl (84-94); Monocytes # (Auto) 0.8 K/mm3 (0.0-0.8); Monocytes % (Auto) 14.7 % (0.0-7.3); Platelet Count 284 K/mm3 (140-440); Red Blood Count 3.52 M/mm3 (3.65-5.03); Red Cell Distribution Width 15.7 % (13.2-15.2)
[2021-12-04 08:27] LABS: BUN/Creatinine Ratio 14; Blood Urea Nitrogen 17 mg/dL (9-20); Calcium 8.4 mg/dL (8.4-10.2); Hemolysis Index 4
[2021-12-04] MEDS: INSULIN LISPRO 100 UNIT/ML SUB-Q SCH ×3 (08:56→21:28)
[2021-12-04] MEDS: INSULIN NPH/REGULAR 70/30 INJ SUB-Q SCH ×2 (08:57→17:11)
--- NOTE | 2021-12-04 09:30 | Progress Note ---
Subjective Date of service: 12/04/21 Principal diagnosis: Acute encephalopathy Interval history: mpression * Nonoliguric acute kidney injury secondary to prerenal azotemia (FeNa 0.5%) --Baseline SCr 1.3mg/dL * Acute hypoxic respiratory failure secondary to COVID 19 PNA * Severe COVID-19 pneumonia * Hypernatremia * Hypokalemia * Acute encephalopathy * Cardiomyopathy - EF 35% * Anemia * Urinary tract infection - Klebsiella pneumonia * Mild left hydronephrosis Recommendations * Renal function now at baseline * Na is better today at last check, continue d5w * pulm note reviewed, avoid over diuresis with hypernatremia * Continue to hold MIREYA inhibitor/ARB at this time * Encourage free water intake * Management of COVID-19 PNA per ID and primary team * Abx per ID * Maintain MAP >65 * Avoid potential nephrotoxins * Monitor lytes, fluid balance closely * Strict I/O Subjective Principal diagnosis: Acute encephalopathy Interval history: Patient has no complaints. No acute events overnight Objective - General Appearance exam deferred, primary team exam noted Objective - Vital Signs Vital signs: Vital Signs - 12hr 12/03/21 12/03/21 12/04/21 22:00 22:13 04:35 Temperature 98.2 F 98.3 F Pulse Rate 61 63 Respiratory 18 18 Rate Blood Pressure 113/66 126/76 O2 Sat by Pulse 96 90 95 Oximetry - Lab 12/04/21 07:17 12/04/21 07:17 Most recent lab results Calcium 8.4 mg/dL (8.4-10.2) 12/04/21 07:17 Phosphorus 1.90 mg/dL (2.5-4.5) L 12/03/21 04:00 Magnesium 2.30 mg/dL (1.7-2.3) 12/03/21 04:00 Urine Creatinine 80.9 mg/dL (0.1-20.0) H 11/27/21 Unknown Urine Sodium 36 mmol/L 11/27/21 Unknown Urine Total Protein 43 mg/dL (5-11.8) H 11/27/21 Unknown Medications & Allergies - Medications Allergies/Adverse Reactions: Allergies No Known Allergies Allergy (Verified 11/22/21 05:55) Home Medications: Home Medications Medication Instructions Recorded Confirmed Last Taken Type Furosemide [Lasix TAB] 80 mg PO TID 11/24/21 11/24/21 Unknown History Gabapentin [Neurontin] 300 mg PO BID 11/24/21 11/27/21 11/19/21 09:12 History 300 mg Sacubitril/Valsartan [Entresto 1 tab PO BID 11/24/21 11/27/21 11/19/21 09:12 History 49-51 mg] 1 tab Spironolactone [Aldactone] 25 mg PO QDAY 11/24/21 11/27/21 11/19/21 09:12 History 25 mg Tamsulosin [Flomax] 0.4 mg PO QDAY 11/24/21 11/27/21 11/18/21 22:02 History 0.4 mg carvediloL [Coreg] 6.25 mg PO BID 11/24/21 11/27/21 11/19/21 09:12 History 6.25mg AtorvaSTATin [Lipitor] 40 mg PO QHS 11/27/21 11/27/21 11/19/21 09:12 History 40 mg Insulin Glargine,Hum.rec.anlog 12 unit SQ QHS 11/27/21 11/27/21 11/18/21 22:02 History [Lantus Solostar] 12 units Insulin Lispro [Admelog] 1 - 12 unit SQ TIDAC 11/27/21 11/27/21 11/19/21 08:32 History 6 units Insulin Lispro [Admelog] 4 unit SQ TID 11/27/21 11/27/21 11/19/21 08:33 History 4 units oxyCODONE /ACETAMINOPHEN [Percocet 1 tab PO Q6HR PRN 11/27/21 11/27/21 11/19/21 03:57 History 5/325] 1 tab Active Medications: Generic Name Dose Route Start Last Admin Trade Name Freq PRN Reason Stop Dose Admin Acetaminophen 650 mg 11/22/21 05:48 Acetaminophen 325 Mg Tab PO Q4H PRN Pain MILD(1-3)/Fever >100.5/BRODY Albuterol 2.5 mg 11/25/21 12:00 Albuterol 2.5 Mg/3 Ml Nebu IH Q4HRT PRN Shortness Of Breath Dexamethasone 6 mg 11/26/21 12:00 12/03/21 12:24 Dexamethasone 4 Mg/Ml Vial IV 12/05/21 10:01 6 mg Q24HR NANDINI Administration Dextrose 50 ml 12/02/21 15:42 Dextrose 50% In Water (25gm) 50 Ml Syringe IV Q30MIN PRN Hypoglycemia Protocol Docusate Sodium 100 mg 11/25/21 22:00 12/03/21 21:27 Docusate Sodium 100 Mg Cap PO 100 mg BID NANDINI Administration Enoxaparin Sodium 70 mg 11/26/21 12:30 12/03/21 21:28 Enoxaparin 80 Mg/0.8 Ml Inj SUB-Q 70 mg Q12HR NANDINI Administration Hydralazine HCl 10 mg 11/22/21 05:58 Hydralazine 20 Mg/1 Ml Inj IV Q6H PRN Blood Pressure Hydromorphone HCl 0.5 mg 11/22/21 05:48 11/23/21 06:02 Hydromorphone 1 Mg/1 Ml Inj IV 0.5 mg Q3H PRN Administration Pain , Severe (7-10) Dextrose 1,000 mls @ 125 mls/hr 12/02/21 08:00 12/04/21 07:10 D5w IV 125 mls/hr DIRECT NANDINI Administration Insulin Human Isoph/Insulin Regular 10 unit 12/02/21 17:00 12/04/21 08:57 Insulin Nph/Regular 70/30 Inj SUB-Q Not Given BIDDIAB NANDINI Insulin Human Lispro 0 unit 11/22/21 07:30 12/04/21 08:56 Insulin Lispro 100 Unit/Ml SUB-Q Not Given ACHS [facility] Protocol Metoprolol Tartrate 12.5 mg 11/30/21 22:00 12/03/21 21:28 Metoprolol Tartrate 25 Mg Tab PO 12.5 mg BID NANDINI Administration Morphine Sulfate 2 mg 11/22/21 05:48 12/03/21 21:38 Morphine 2 Mg/1 Ml Inj IV 2 mg Q4H PRN Administration Pain, Moderate (4-6) Ondansetron HCl 4 mg 11/22/21 05:48 12/03/21 21:38 Ondansetron 4 Mg/2 Ml Inj IV 4 mg Q8H PRN Administration Nausea And Vomiting Sodium Chloride 10 ml 11/22/21 10:00 12/03/21 21:29 Sodium Chloride 0.9% 10 Ml Flush Syringe IV 10 ml BID NANDINI Administration Sodium Chloride 10 ml 11/22/21 05:48 Sodium Chloride 0.9% 10 Ml Flush Syringe IV PRN PRN LINE FLUSH
--- NOTE | 2021-12-04 10:12 | Progress Note ---
Assessment and Plan Assessment and Plan Assessment and plan: #Acute metabolic encephalopathy possibly multi factorial in part is related to -underlying infection,COVID-19 positive -ROSANA improved -Possible delirium -possible decadron add to his confusion/Agitation? -Hypernatremia,NA#163--154 today -CRP#13 -Bun/Cr#28/1.4 improved--today 17/1.2 -Ammonia#13 -Avoid sedation -exposure to day light -R/O CVA could not do MRI due to agitation -consider EEG as needed #Acute hypoxic respiratory failure secondary to COVID-19improving #COVID-19 pneumonia -daily Decadron x10 days (end date 12/05/2021). Not a candidate for remdesivir. Pulmonary consulted; Infectious disease consulted; #Insulin dependent type II diabetes mellitus - hemoglobin A1c: Pending #Hypertension Hydralazine 10 mg IV every 6 hours as needed. We will monitor the blood pressure closely # ROSANA (acute kidney injury) secondary to vasomotor nephropathy Continue IV fluids per nephrology recommendations # Hypokalemia Repleted. Continue to monitor #Hypernatremia Sodium 164 Nephrology consulted; appreciate recs Starting D5W at 125 cc/hour Monitor electrolytes # Urinary tract infectionresolved Completed IV antibiotic therapy Urine cultures negative for bacteria and positive for Nataila Blood cultures-no growth #Constipation Continue stool softener #CAD #Cardiomyopathy #Chronic HFrEF Cardiology consulted; appreciate recs TTE revealing EF 35 to 40% Continue low-dose beta-tee #Bradycardia Heart rate in the low low 50s Likely secondary to beta-tee #Hyperglycemia Continue insulin sliding scale coverage Blood glucose goal [id number] while inpatient. Continue to monitor #Severe debility Consulted physical therapy and Occupational Therapy; appreciate recs will follow Subjective Date of service: 12/04/21 Principal diagnosis: Acute encephalopathy Interval history: more alert interactive respond to simple command , oriented to self knows date , not place or date move allextremities he is restraint due to agitation/confusion Objective - Vital Sign Vital Signs - 12hr 12/03/21 12/04/21 22:13 04:35 Temperature 98.2 F 98.3 F Pulse Rate 61 63 Respiratory 18 18 Rate Blood Pressure 113/66 126/76 O2 Sat by Pulse 90 95 Oximetry - General Apperance Constitutional: uncomfortable - EENT EENT: PERRL, mucous membranes moist - Respiratory Respiratory: chest non-tender, lungs clear - Cardiovascular Cardiovascular: regular rate Extremities: no peripheral edema bilat, no clubbing, cyanosis - Gastrointestinal Gastrointestinal: normoactive bowel sounds - Integumentary Integumentary: normal - Neurologic Cranial nerve examination: PERRL, EOMI, intact Speech examination: intact Detailed motor examination: grossly full strength in - Psychiatric Psychiatric: agitated (restraint, oriented only to name and birthdate, disoriented to place or date ,), other - Laboratory Findings CBC and BMP: 12/04/21 07:17 12/04/21 07:17 Abnormal Lab Findings: Abnormal Labs 11/21/21 11/21/21 11/21/21 19:36 19:36 19:37 WBC RBC 3.56 L Hgb 10.8 L Hct 34.1 L MCV 96 H MCHC RDW 15.3 H Lymph % (Auto) [place] % (Auto) Lymph # (Auto) Seg Neutrophils % Seg Neuts % (Manual) 79.0 H Lymphocytes % (Manual) 10.0 L Monocytes % (Manual) 8.0 H Basophils % (Manual) 3.0 H Seg Neutrophils # Lymphocytes # (Manual) 0.7 L Basophils # (Manual) 0.2 H D-Dimer Sodium Potassium 3.2 L Chloride BUN 23 H Creatinine 1.4 H Glucose 210 H POC Glucose Uric Acid Calcium 8.2 L Phosphorus AST 45 H Alkaline Phosphatase 133 H Ammonia C-Reactive Protein Total Protein Albumin 3.0 L TSH Urine WBC (Auto) 48.0 H Urine Creatinine Urine Total Protein Coronavirus (PCR) 11/21/21 11/22/21 11/22/21 19:37 11:52 15:52 WBC RBC Hgb Hct MCV MCHC RDW Lymph % (Auto) [place] % (Auto) Lymph # (Auto) Seg Neutrophils % Seg Neuts % (Manual) Lymphocytes % (Manual) Monocytes % (Manual) Basophils % (Manual) Seg Neutrophils # Lymphocytes # (Manual) Basophils # (Manual) D-Dimer Sodium Potassium Chloride BUN Creatinine Glucose POC Glucose 144 H 194 H Uric Acid Calcium Phosphorus AST Alkaline Phosphatase Ammonia C-Reactive Protein Total Protein Albumin TSH 4.800 H Urine WBC (Auto) Urine Creatinine Urine Total Protein Coronavirus (PCR) 11/22/21 11/23/21 11/23/21 20:42 04:48 04:48 WBC RBC 3.22 L Hgb 9.8 L Hct 30.9 L MCV 96 H MCHC RDW Lymph % (Auto) [place] % (Auto) 9.4 H Lymph # (Auto) 1.1 L Seg Neutrophils % 76.5 H Seg Neuts % (Manual) Lymphocytes % (Manual) Monocytes % (Manual) Basophils % (Manual) Seg Neutrophils # Lymphocytes # (Manual) Basophils # (Manual) D-Dimer Sodium Potassium 3.1 L Chloride BUN 24 H Creatinine Glucose 112 H POC Glucose 155 H Uric Acid Calcium 8.1 L Phosphorus AST Alkaline Phosphatase Ammonia C-Reactive Protein Total Protein Albumin TSH Urine WBC (Auto) Urine Creatinine Urine Total Protein Coronavirus (PCR) 11/23/21 11/23/21 11/23/21 08:03 12:24 16:37 WBC RBC Hgb Hct MCV MCHC RDW Lymph % (Auto) [place] % (Auto) Lymph # (Auto) Seg Neutrophils % Seg Neuts % (Manual) Lymphocytes % (Manual) Monocytes % (Manual) Basophils % (Manual) Seg Neutrophils # Lymphocytes # (Manual) Basophils # (Manual) D-Dimer Sodium Potassium Chloride BUN Creatinine Glucose POC Glucose 111 H 106 H 112 H Uric Acid Calcium Phosphorus AST Alkaline Phosphatase Ammonia C-Reactive Protein Total Protein Albumin TSH Urine WBC (Auto) Urine Creatinine Urine Total Protein Coronavirus (PCR) 11/23/21 11/23/21 11/24/21 20:45 Unknown 11:47 WBC RBC Hgb Hct MCV MCHC RDW Lymph % (Auto) [place] % (Auto) Lymph # (Auto) Seg Neutrophils % Seg Neuts % (Manual) Lymphocytes % (Manual) Monocytes % (Manual) Basophils % (Manual) Seg Neutrophils # Lymphocytes # (Manual) Basophils # (Manual) D-Dimer Sodium Potassium Chloride BUN Creatinine Glucose POC Glucose 179 H 142 H Uric Acid Calcium Phosphorus AST Alkaline Phosphatase Ammonia C-Reactive Protein Total Protein Albumin TSH Urine WBC (Auto) Urine Creatinine Urine Total Protein Coronavirus (PCR) Positive A 11/24/21 11/24/21 11/25/21 18:09 20:52 05:27 WBC RBC 3.22 L Hgb 9.6 L Hct 31.1 L MCV 97 H MCHC 31 L RDW 15.6 H Lymph % (Auto) 10.5 L [place] % (Auto) Lymph # (Auto) 1.1 L Seg Neutrophils % 82.0 H Seg Neuts % (Manual) Lymphocytes % (Manual) Monocytes % (Manual) Basophils % (Manual) Seg Neutrophils # 8.7 H Lymphocytes # (Manual) Basophils # (Manual) D-Dimer Sodium Potassium Chloride BUN Creatinine Glucose POC Glucose 107 H 209 H Uric Acid Calcium Phosphorus AST Alkaline Phosphatase Ammonia C-Reactive Protein Total Protein Albumin TSH Urine WBC (Auto) Urine Creatinine Urine Total Protein Coronavirus (PCR) 11/25/21 11/25/21 11/25/21 05:27 05:27 13:43 WBC RBC Hgb Hct MCV MCHC RDW Lymph % (Auto) [place] % (Auto) Lymph # (Auto) Seg Neutrophils % Seg Neuts % (Manual) Lymphocytes % (Manual) Monocytes % (Manual) Basophils % (Manual) Seg Neutrophils # Lymphocytes # (Manual) Basophils # (Manual) D-Dimer Sodium 146 H Potassium Chloride 108.2 H BUN Creatinine Glucose 145 H 191 H POC Glucose Uric Acid Calcium 7.8 L Phosphorus AST 67 H Alkaline Phosphatase Ammonia C-Reactive Protein 25.00 H Total Protein 5.1 L D Albumin 2.5 L TSH Urine WBC (Auto) Urine Creatinine Urine Total Protein Coronavirus (PCR) 11/25/21 11/26/21 11/26/21 18:16 05:00 08:01 WBC RBC Hgb Hct MCV MCHC RDW Lymph % (Auto) [place] % (Auto) Lymph # (Auto) Seg Neutrophils % Seg Neuts % (Manual) Lymphocytes % (Manual) Monocytes % (Manual) Basophils % (Manual) Seg Neutrophils # Lymphocytes # (Manual) Basophils # (Manual) D-Dimer Sodium Potassium Chloride BUN 28 H Creatinine 1.7 H Glucose 236 H POC Glucose 149 H 206 H Uric Acid Calcium 7.8 L Phosphorus AST 51 H Alkaline Phosphatase 233 H Ammonia C-Reactive Protein Total Protein 5.9 L Albumin 2.3 L TSH Urine WBC (Auto) Urine Creatinine Urine Total Protein Coronavirus (PCR) 11/26/21 11/26/21 11/26/21 08:21 11:09 16:37 WBC RBC Hgb Hct MCV MCHC RDW Lymph % (Auto) [place] % (Auto) Lymph # (Auto) Seg Neutrophils % Seg Neuts % (Manual) Lymphocytes % (Manual) Monocytes % (Manual) Basophils % (Manual) Seg Neutrophils # Lymphocytes # (Manual) Basophils # (Manual) D-Dimer Sodium Potassium Chloride BUN 28 H Creatinine 1.5 H Glucose POC Glucose 198 H 154 H Uric Acid Calcium Phosphorus AST Alkaline Phosphatase Ammonia C-Reactive Protein Total Protein Albumin TSH Urine WBC (Auto) Urine Creatinine Urine Total Protein Coronavirus (PCR) 11/26/21 11/26/21 11/27/21 16:44 22:20 05:17 WBC 14.0 H RBC 3.12 L Hgb 9.1 L Hct 29.3 L MCV MCHC 31 L RDW Lymph % (Auto) [place] % (Auto) Lymph # (Auto) Seg Neutrophils % Seg Neuts % (Manual) Lymphocytes % (Manual) Monocytes % (Manual) Basophils % (Manual) Seg Neutrophils # Lymphocytes # (Manual) Basophils # (Manual) D-Dimer 1279.46 H Sodium Potassium Chloride BUN Creatinine Glucose POC Glucose 173 H Uric Acid Calcium Phosphorus AST Alkaline Phosphatase Ammonia C-Reactive Protein Total Protein Albumin TSH Urine WBC (Auto) Urine Creatinine Urine Total Protein Coronavirus (PCR) 11/27/21 11/27/21 11/27/21 05:17 05:17 11:22 WBC RBC Hgb Hct MCV MCHC RDW Lymph % (Auto) [place] % (Auto) Lymph # (Auto) Seg Neutrophils % Seg Neuts % (Manual) Lymphocytes % (Manual) Monocytes % (Manual) Basophils % (Manual) Seg Neutrophils # Lymphocytes # (Manual) Basophils # (Manual) D-Dimer Sodium 147 H Potassium Chloride 107.3 H BUN 37 H Creatinine 1.6 H Glucose 197 H POC Glucose 185 H Uric Acid Calcium 8.1 L Phosphorus AST Alkaline Phosphatase 211 H Ammonia C-Reactive Protein 13.00 H Total Protein 5.6 L Albumin 2.5 L TSH Urine WBC (Auto) Urine Creatinine Urine Total Protein Coronavirus (PCR) 11/27/21 11/27/21 11/27/21 17:35 21:12 Unknown WBC RBC Hgb Hct MCV MCHC RDW Lymph % (Auto) [place] % (Auto) Lymph # (Auto) Seg Neutrophils % Seg Neuts % (Manual) Lymphocytes % (Manual) Monocytes % (Manual) Basophils % (Manual) Seg Neutrophils # Lymphocytes # (Manual) Basophils # (Manual) D-Dimer Sodium Potassium Chloride BUN Creatinine Glucose POC Glucose 144 H 127 H Uric Acid Calcium Phosphorus AST Alkaline Phosphatase Ammonia C-Reactive Protein Total Protein Albumin TSH Urine WBC (Auto) 13.0 H Urine Creatinine Urine Total Protein Coronavirus (PCR) 11/27/21 11/27/21 11/28/21 Unknown Unknown 06:47 WBC RBC Hgb Hct MCV MCHC RDW Lymph % (Auto) [place] % (Auto) Lymph # (Auto) Seg Neutrophils % Seg Neuts % (Manual) Lymphocytes % (Manual) Monocytes % (Manual) Basophils % (Manual) Seg Neutrophils # Lymphocytes # (Manual) Basophils # (Manual) D-Dimer Sodium 148 H Potassium 3.4 L Chloride 107.4 H BUN 43 H Creatinine 1.6 H Glucose 226 H POC Glucose Uric Acid 9.8 H Calcium 8.3 L Phosphorus AST Alkaline Phosphatase 197 H Ammonia C-Reactive Protein Total Protein 5.6 L Albumin 2.5 L TSH Urine WBC (Auto) Urine Creatinine 80.9 H Urine Total Protein 43 H Coronavirus (PCR) 11/28/21 11/28/21 11/28/21 07:28 11:52 12:59 WBC RBC Hgb Hct MCV MCHC RDW Lymph % (Auto) [place] % (Auto) Lymph # (Auto) Seg Neutrophils % Seg Neuts % (Manual) Lymphocytes % (Manual) Monocytes % (Manual) Basophils % (Manual) Seg Neutrophils # Lymphocytes # (Manual) Basophils # (Manual) D-Dimer Sodium Potassium Chloride BUN Creatinine Glucose POC Glucose 192 H 210 H Uric Acid Calcium Phosphorus AST Alkaline Phosphatase Ammonia 12.0 L C-Reactive Protein Total Protein Albumin TSH Urine WBC (Auto) Urine Creatinine Urine Total Protein Coronavirus (PCR) 11/28/21 11/28/21 11/29/21 17:44 22:20 05:15 WBC RBC 3.31 L Hgb 9.9 L Hct 31.5 L MCV 95 H MCHC RDW 15.5 H Lymph % (Auto) [place] % (Auto) Lymph # (Auto) Seg Neutrophils % Seg Neuts % (Manual) Lymphocytes % (Manual) Monocytes % (Manual) Basophils % (Manual) Seg Neutrophils # Lymphocytes # (Manual) Basophils # (Manual) D-Dimer Sodium Potassium Chloride BUN Creatinine Glucose POC Glucose 213 H 163 H Uric Acid Calcium Phosphorus AST Alkaline Phosphatase Ammonia C-Reactive Protein Total Protein Albumin TSH Urine WBC (Auto) Urine Creatinine Urine Total Protein Coronavirus (PCR) 11/29/21 11/29/21 11/29/21 05:15 11:11 15:45 WBC RBC Hgb Hct MCV MCHC RDW Lymph % (Auto) [place] % (Auto) Lymph # (Auto) Seg Neutrophils % Seg Neuts % (Manual) Lymphocytes % (Manual) Monocytes % (Manual) Basophils % (Manual) Seg Neutrophils # Lymphocytes # (Manual) Basophils # (Manual) D-Dimer Sodium 152 H Potassium 3.2 L Chloride 114.1 H BUN 41 H Creatinine 1.4 H Glucose POC Glucose 149 H 212 H Uric Acid Calcium Phosphorus AST Alkaline Phosphatase Ammonia C-Reactive Protein Total Protein Albumin TSH Urine WBC (Auto) Urine Creatinine Urine Total Protein Coronavirus (PCR) 11/29/21 11/30/21 11/30/21 21:54 07:20 11:23 WBC RBC Hgb Hct MCV MCHC RDW Lymph % (Auto) [place] % (Auto) Lymph # (Auto) Seg Neutrophils % Seg Neuts % (Manual) Lymphocytes % (Manual) Monocytes % (Manual) Basophils % (Manual) Seg Neutrophils # Lymphocytes # (Manual) Basophils # (Manual) D-Dimer Sodium Potassium Chloride BUN Creatinine Glucose POC Glucose 197 H 150 H 180 H Uric Acid Calcium Phosphorus AST Alkaline Phosphatase Ammonia C-Reactive Protein Total Protein Albumin TSH Urine WBC (Auto) Urine Creatinine Urine Total Protein Coronavirus (PCR) 11/30/21 11/30/21 12/01/21 15:55 21:28 06:47 WBC RBC 3.39 L Hgb 10.2 L Hct 32.5 L MCV 96 H MCHC RDW 15.3 H Lymph % (Auto) [place] % (Auto) Lymph # (Auto) Seg Neutrophils % Seg Neuts % (Manual) Lymphocytes % (Manual) Monocytes % (Manual) Basophils % (Manual) Seg Neutrophils # Lymphocytes # (Manual) Basophils # (Manual) D-Dimer Sodium Potassium Chloride BUN Creatinine Glucose POC Glucose 184 H 214 H Uric Acid Calcium Phosphorus AST Alkaline Phosphatase Ammonia C-Reactive Protein Total Protein Albumin TSH Urine WBC (Auto) Urine Creatinine Urine Total Protein Coronavirus (PCR) 12/01/21 12/01/21 12/01/21 06:47 07:51 11:01 WBC RBC Hgb Hct MCV MCHC RDW Lymph % (Auto) [place] % (Auto) Lymph # (Auto) Seg Neutrophils % Seg Neuts % (Manual) Lymphocytes % (Manual) Monocytes % (Manual) Basophils % (Manual) Seg Neutrophils # Lymphocytes # (Manual) Basophils # (Manual) D-Dimer Sodium 164 H* D Potassium 3.1 L Chloride 122.5 H BUN 35 H Creatinine Glucose 200 H POC Glucose 174 H 170 H Uric Acid Calcium Phosphorus AST Alkaline Phosphatase Ammonia C-Reactive Protein Total Protein Albumin TSH Urine WBC (Auto) Urine Creatinine Urine Total Protein Coronavirus (PCR) 12/01/21 12/01/21 12/02/21 17:17 21:24 07:31 WBC RBC Hgb Hct MCV MCHC RDW Lymph % (Auto) [place] % (Auto) Lymph # (Auto) Seg Neutrophils % Seg Neuts % (Manual) Lymphocytes % (Manual) Monocytes % (Manual) Basophils % (Manual) Seg Neutrophils # Lymphocytes # (Manual) Basophils # (Manual) D-Dimer Sodium Potassium Chloride BUN Creatinine Glucose POC Glucose 134 H 180 H 179 H Uric Acid Calcium Phosphorus AST Alkaline Phosphatase Ammonia C-Reactive Protein Total Protein Albumin TSH Urine WBC (Auto) Urine Creatinine Urine Total Protein Coronavirus (PCR) 12/02/21 12/02/21 12/02/21 09:13 10:45 13:12 WBC RBC Hgb Hct MCV MCHC RDW Lymph % (Auto) [place] % (Auto) Lymph # (Auto) Seg Neutrophils % Seg Neuts % (Manual) Lymphocytes % (Manual) Monocytes % (Manual) Basophils % (Manual) Seg Neutrophils # Lymphocytes # (Manual) Basophils # (Manual) D-Dimer Sodium 163 H* 159 H Potassium 3.1 L 3.4 L Chloride 122.5 H 121.4 H BUN 28 H 28 H Creatinine 1.4 H Glucose 244 H 250 H POC Glucose 211 H Uric Acid Calcium Phosphorus AST Alkaline Phosphatase Ammonia C-Reactive Protein Total Protein Albumin TSH Urine WBC (Auto) Urine Creatinine Urine Total Protein Coronavirus (PCR) 12/02/21 12/02/21 12/02/21 13:27 17:01 21:28 WBC RBC Hgb Hct MCV MCHC RDW Lymph % (Auto) [place] % (Auto) Lymph # (Auto) Seg Neutrophils % Seg Neuts % (Manual) Lymphocytes % (Manual) Monocytes % (Manual) Basophils % (Manual) Seg Neutrophils # Lymphocytes # (Manual) Basophils # (Manual) D-Dimer Sodium Potassium Chloride BUN Creatinine Glucose POC Glucose 204 H 120 H 157 H Uric Acid Calcium Phosphorus AST Alkaline Phosphatase Ammonia C-Reactive Protein Total Protein Albumin TSH Urine WBC (Auto) Urine Creatinine Urine Total Protein Coronavirus (PCR) 12/03/21 12/03/21 12/04/21 04:00 12:12 07:17 WBC RBC Hgb Hct MCV MCHC RDW Lymph % (Auto) [place] % (Auto) Lymph # (Auto) Seg Neutrophils % Seg Neuts % (Manual) Lymphocytes % (Manual) Monocytes % (Manual) Basophils % (Manual) Seg Neutrophils # Lymphocytes # (Manual) Basophils # (Manual) D-Dimer Sodium 157 H 154 H Potassium 3.5 L 3.5 L Chloride 118.7 H 116.0 H BUN 21 H Creatinine Glucose 258 H 119 H POC Glucose 107 H Uric Acid Calcium Phosphorus 1.90 L AST Alkaline Phosphatase Ammonia C-Reactive Protein Total Protein Albumin TSH Urine WBC (Auto) Urine Creatinine Urine Total Protein Coronavirus (PCR) 12/04/21 07:17 WBC RBC 3.52 L Hgb 10.4 L Hct 33.6 L MCV 95 H MCHC 31 L RDW 15.7 H Lymph % (Auto) [place] % (Auto) 14.7 H Lymph # (Auto) 1.0 L Seg Neutrophils % Seg Neuts % (Manual) Lymphocytes % (Manual) Monocytes % (Manual) Basophils % (Manual) Seg Neutrophils # Lymphocytes # (Manual) Basophils # (Manual) D-Dimer Sodium Potassium Chloride BUN Creatinine Glucose POC Glucose Uric Acid Calcium Phosphorus AST Alkaline Phosphatase Ammonia C-Reactive Protein Total Protein Albumin TSH Urine WBC (Auto) Urine Creatinine Urine Total Protein Coronavirus (PCR)
--- NOTE | 2021-12-04 10:48 | Progress Note ---
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 Currently anticoagulated on Lovenox COPD DM Echo 11/27/2021- EF 40 to 45%, mild global hypokinesis of left ventricle. Right ventricular systolic function is normal. Mild aortic regurgitation. Trace tricuspid and pulmonic regurgitation Echo 12/01/2020- LVEF 35 - 40%. LV systolic function is moderately decreased,Grade I (mild) diastolic dysfunction. There were technical limitations during this study due to patient positioning and patient body habitus. Poor views unable to evaluate any of the valves PET Stress 01/31/2021- Abnormal pharmacological PET stress test. There is a small sized mild to moderate intensity partially reversible perfusion defect seen in the apical inferior wall consistent with infarct/scar and a small amount of ischemia. SSS 3, SRS 1, SDS 2. TID 0.84(normal).Severely depressed resting LV systolic function with a calculated LVEF 22% at rest which increased to 29% with peak stress. Global LV hypokinesis. Coronary calcifications were not seen by chest CT, however CT for attenuation correction is not sensitive. Stress ECG was negative for ischemia. No symptoms of chest pain with vasodilator stress Outpatient medications: Coreg 6.25 mg p.o. twice daily atorvastatin 40 mg p.o. nightly, spironolactone 25 mg p.o. daily, Entresto 49-51 mg p.o. twice daily, Lasix 80 mg p.o. 3 times daily Plan: Patient noncompliant with compliance monitor No MIREYA or ARB due to per nephrology recs Continue present management Patient seen in conjunction with Dr. Javier who agrees with this plan of care - Patient Problems (1) Sinus bradycardia Current Visit: Yes Status: Acute (2) COVID-19 Current Visit: Yes Status: Acute (3) ROSANA (acute kidney injury) Current Visit: Yes Status: Acute (4) Acute metabolic encephalopathy Current Visit: Yes Status: Acute (5) Metabolic encephalopathy Current Visit: Yes Status: Acute Subjective Date of service: 12/04/21 Principal diagnosis: Acute encephalopathy Interval history: Patient resting in bed in no acute distress. Patient remains altered Patient noncompliant with monitor Objective Vital Signs Temp Pulse Resp BP Pulse Ox 12/04/21 10:00 93 12/04/21 04:35 98.3 F 63 18 126/76 95 12/03/21 22:13 98.2 F 61 18 113/66 90 12/03/21 22:00 96 12/03/21 15:16 61 115/79 12/03/21 14:00 97.9 F 61 18 115/79 89 - Physical Examination General: Other (AMS) HEENT: Positive: PERRL, Mucus Membranes Dry Neck: Positive: trachea midline Cardiac: Positive: Reg Rate and Rhythm Lungs: Positive: Normal Breath Sounds Neuro: Positive: Grossly Intact Abdomen: Positive: Soft Skin: Negative: Rash, Suspicious Lesions, Ulceration Extremities: Present: upper extr. pulses. Absent: edema - Labs and Meds CBC 12/04/21 Range/Units 07:17 WBC 5.5 (4.5-11.0) K/mm3 RBC 3.52 L (3.65-5.03) M/mm3 Hgb 10.4 L (11.8-15.2) gm/dl Hct 33.6 L (35.5-45.6) % Plt Count 284 (140-440) K/mm3 Lymph # (Auto) 1.0 L (1.2-5.4) K/mm3 [place] # (Auto) 0.8 (0.0-0.8) K/mm3 Eos # (Auto) 0.0 (0.0-0.4) K/mm3 Baso # (Auto) 0.0 (0.0-0.1) K/mm3 Comprehensive Metabolic Panel 12/04/21 Range/Units 07:17 Sodium 154 H (137-145) mmol/L Potassium 3.5 L (3.6-5.0) mmol/L Chloride 116.0 H (98-107) mmol/L Carbon Dioxide 28 (22-30) mmol/L BUN 17 (9-20) mg/dL Creatinine 1.2 (0.8-1.3) mg/dL Glucose 119 H (75-100) mg/dL Calcium 8.4 (8.4-10.2) mg/dL - Imaging and Cardiology Echo: report reviewed - Telemetry EKG Rhythm: Sinus Rhythm - EKG Sinus rhythms and dysrhythmias: sinus rhythm
[2021-12-04] MEDS: METOPROLOL TARTRATE 25 MG TAB PO SCH ×2 (11:22→21:26)
[2021-12-04] MEDS: ENOXAPARIN 80 MG/0.8 ML INJ SUB-Q SCH ×2 (11:23→21:26)
[2021-12-04] MEDS: DOCUSATE SODIUM 100 MG CAP PO SCH ×2 (11:23→21:27)
[2021-12-04] MEDS: dexAMETHasone 4 MG/ML VIAL IV SCH (11:23)
--- NOTE | 2021-12-04 13:56 | Progress Note ---
Assessment and Plan 81 y/o male with acute respiratory failure likely secondary to COVID but also could be from volume overload, with renal failure and Kleibsiella UTI. 12/03/21: No new recs. Will see PRN. Oxygen continues to improve 12/02/21: now on 4 liters NC with good sats. Continue to wean as tolerated. given his heart failure, from a pulmonary standpoint strongly suggest keeping net negative as much as possible. Will see as needed. If oxygen is required at discharge, can use COVID as diagnosis. 12/01/21: I/O has not bee accurate since Wednesday. unsure off fluid balance. Renal and cards following so will defer to them. Continue to wean FiO2 for sats >88%. Negative fluid balance would help with oxygenation. 11/28/21: Please continue net negative state daily as this has really helped with oxygen requirement. Wean FiO2 for sats >88% 11/27/21: Prone as tolerated. Wean FiO2 for sats >88%. Suggest daily net negative state if bp and renal function will allow. Cards now following, defer diuresis to them. Appreciate ID note. Continue steroids and remdesivir. ID considering actemra, awaiting repeat CRP 1. ID-Was on rocephin in [place], then was discharged on levaquin for 2 days. Kleb is resistant to ampicillin bactrim and tetracycline. Was sensitive to everything else. ID following. not currently on abx. Has been afebile no white count 2. Pulm- acute respiratory failure with worsening while in house. Could be all related to COVID but given his history of systolic CHF, could be volume related as well as it was so acute after a couple days of IV hydration. If renal function and bp would allow, would attempt some yennifer IV diuresis. Prone given COVID and agree with steroids and Remdesivir. 3. Guarded prognosis, will continue to follow Subjective Date of service: 12/04/21 Principal diagnosis: Acute encephalopathy Interval history: Stable on 2 liters. Objective Vital Signs - 12hr 12/04/21 12/04/21 04:35 10:00 Temperature 98.3 F Pulse Rate 63 Respiratory 18 Rate Blood Pressure 126/76 O2 Sat by Pulse 95 93 Oximetry Constitutional: no acute distress, alert, other (confused) Eyes: non-icteric ENT: oropharynx moist Neck: supple Effort: normal Ascultation: Bilateral: diminished breath sounds Cardiovascular: regular rate and rhythm Gastrointestinal: normoactive bowel sounds Integumentary: normal CBC and BMP: 12/04/21 07:17 12/04/21 07:17 ABG, PT/INR, D-dimer: PT/INR, D-dimer D-Dimer 1279.46 ng/mlDDU (0-234) H 11/26/21 16:44 Abnormal lab findings: Abnormal Labs 11/21/21 11/21/21 11/21/21 19:36 19:36 19:37 WBC RBC 3.56 L Hgb 10.8 L Hct 34.1 L MCV 96 H MCHC RDW 15.3 H Lymph % (Auto) [place] % (Auto) Lymph # (Auto) Seg Neutrophils % Seg Neuts % (Manual) 79.0 H Lymphocytes % (Manual) 10.0 L Monocytes % (Manual) 8.0 H Basophils % (Manual) 3.0 H Seg Neutrophils # Lymphocytes # (Manual) 0.7 L Basophils # (Manual) 0.2 H D-Dimer Sodium Potassium 3.2 L Chloride BUN 23 H Creatinine 1.4 H Glucose 210 H POC Glucose Uric Acid Calcium 8.2 L Phosphorus AST 45 H Alkaline Phosphatase 133 H Ammonia C-Reactive Protein Total Protein Albumin 3.0 L TSH Urine WBC (Auto) 48.0 H Urine Creatinine Urine Total Protein Coronavirus (PCR) 11/21/21 11/22/21 11/22/21 19:37 11:52 15:52 WBC RBC Hgb Hct MCV MCHC RDW Lymph % (Auto) [place] % (Auto) Lymph # (Auto) Seg Neutrophils % Seg Neuts % (Manual) Lymphocytes % (Manual) Monocytes % (Manual) Basophils % (Manual) Seg Neutrophils # Lymphocytes # (Manual) Basophils # (Manual) D-Dimer Sodium Potassium Chloride BUN Creatinine Glucose POC Glucose 144 H 194 H Uric Acid Calcium Phosphorus AST Alkaline Phosphatase Ammonia C-Reactive Protein Total Protein Albumin TSH 4.800 H Urine WBC (Auto) Urine Creatinine Urine Total Protein Coronavirus (PCR) 11/22/21 11/23/21 11/23/21 20:42 04:48 04:48 WBC RBC 3.22 L Hgb 9.8 L Hct 30.9 L MCV 96 H MCHC RDW Lymph % (Auto) [place] % (Auto) 9.4 H Lymph # (Auto) 1.1 L Seg Neutrophils % 76.5 H Seg Neuts % (Manual) Lymphocytes % (Manual) Monocytes % (Manual) Basophils % (Manual) Seg Neutrophils # Lymphocytes # (Manual) Basophils # (Manual) D-Dimer Sodium Potassium 3.1 L Chloride BUN 24 H Creatinine Glucose 112 H POC Glucose 155 H Uric Acid Calcium 8.1 L Phosphorus AST Alkaline Phosphatase Ammonia C-Reactive Protein Total Protein Albumin TSH Urine WBC (Auto) Urine Creatinine Urine Total Protein Coronavirus (PCR) 11/23/21 11/23/21 11/23/21 08:03 12:24 16:37 WBC RBC Hgb Hct MCV MCHC RDW Lymph % (Auto) [place] % (Auto) Lymph # (Auto) Seg Neutrophils % Seg Neuts % (Manual) Lymphocytes % (Manual) Monocytes % (Manual) Basophils % (Manual) Seg Neutrophils # Lymphocytes # (Manual) Basophils # (Manual) D-Dimer Sodium Potassium Chloride BUN Creatinine Glucose POC Glucose 111 H 106 H 112 H Uric Acid Calcium Phosphorus AST Alkaline Phosphatase Ammonia C-Reactive Protein Total Protein Albumin TSH Urine WBC (Auto) Urine Creatinine Urine Total Protein Coronavirus (PCR) 11/23/21 11/23/21 11/24/21 20:45 Unknown 11:47 WBC RBC Hgb Hct MCV MCHC RDW Lymph % (Auto) [place] % (Auto) Lymph # (Auto) Seg Neutrophils % Seg Neuts % (Manual) Lymphocytes % (Manual) Monocytes % (Manual) Basophils % (Manual) Seg Neutrophils # Lymphocytes # (Manual) Basophils # (Manual) D-Dimer Sodium Potassium Chloride BUN Creatinine Glucose POC Glucose 179 H 142 H Uric Acid Calcium Phosphorus AST Alkaline Phosphatase Ammonia C-Reactive Protein Total Protein Albumin TSH Urine WBC (Auto) Urine Creatinine Urine Total Protein Coronavirus (PCR) Positive A 11/24/21 11/24/21 11/25/21 18:09 20:52 05:27 WBC RBC 3.22 L Hgb 9.6 L Hct 31.1 L MCV 97 H MCHC 31 L RDW 15.6 H Lymph % (Auto) 10.5 L [place] % (Auto) Lymph # (Auto) 1.1 L Seg Neutrophils % 82.0 H Seg Neuts % (Manual) Lymphocytes % (Manual) Monocytes % (Manual) Basophils % (Manual) Seg Neutrophils # 8.7 H Lymphocytes # (Manual) Basophils # (Manual) D-Dimer Sodium Potassium Chloride BUN Creatinine Glucose POC Glucose 107 H 209 H Uric Acid Calcium Phosphorus AST Alkaline Phosphatase Ammonia C-Reactive Protein Total Protein Albumin TSH Urine WBC (Auto) Urine Creatinine Urine Total Protein Coronavirus (PCR) 11/25/21 11/25/21 11/25/21 05:27 05:27 13:43 WBC RBC Hgb Hct MCV MCHC RDW Lymph % (Auto) [place] % (Auto) Lymph # (Auto) Seg Neutrophils % Seg Neuts % (Manual) Lymphocytes % (Manual) Monocytes % (Manual) Basophils % (Manual) Seg Neutrophils # Lymphocytes # (Manual) Basophils # (Manual) D-Dimer Sodium 146 H Potassium Chloride 108.2 H BUN Creatinine Glucose 145 H 191 H POC Glucose Uric Acid Calcium 7.8 L Phosphorus AST 67 H Alkaline Phosphatase Ammonia C-Reactive Protein 25.00 H Total Protein 5.1 L D Albumin 2.5 L TSH Urine WBC (Auto) Urine Creatinine Urine Total Protein Coronavirus (PCR) 11/25/21 11/26/21 11/26/21 18:16 05:00 08:01 WBC RBC Hgb Hct MCV MCHC RDW Lymph % (Auto) [place] % (Auto) Lymph # (Auto) Seg Neutrophils % Seg Neuts % (Manual) Lymphocytes % (Manual) Monocytes % (Manual) Basophils % (Manual) Seg Neutrophils # Lymphocytes # (Manual) Basophils # (Manual) D-Dimer Sodium Potassium Chloride BUN 28 H Creatinine 1.7 H Glucose 236 H POC Glucose 149 H 206 H Uric Acid Calcium 7.8 L Phosphorus AST 51 H Alkaline Phosphatase 233 H Ammonia C-Reactive Protein Total Protein 5.9 L Albumin 2.3 L TSH Urine WBC (Auto) Urine Creatinine Urine Total Protein Coronavirus (PCR) 11/26/21 11/26/21 11/26/21 08:21 11:09 16:37 WBC RBC Hgb Hct MCV MCHC RDW Lymph % (Auto) [place] % (Auto) Lymph # (Auto) Seg Neutrophils % Seg Neuts % (Manual) Lymphocytes % (Manual) Monocytes % (Manual) Basophils % (Manual) Seg Neutrophils # Lymphocytes # (Manual) Basophils # (Manual) D-Dimer Sodium Potassium Chloride BUN 28 H Creatinine 1.5 H Glucose POC Glucose 198 H 154 H Uric Acid Calcium Phosphorus AST Alkaline Phosphatase Ammonia C-Reactive Protein Total Protein Albumin TSH Urine WBC (Auto) Urine Creatinine Urine Total Protein Coronavirus (PCR) 11/26/21 11/26/21 11/27/21 16:44 22:20 05:17 WBC 14.0 H RBC 3.12 L Hgb 9.1 L Hct 29.3 L MCV MCHC 31 L RDW Lymph % (Auto) [place] % (Auto) Lymph # (Auto) Seg Neutrophils % Seg Neuts % (Manual) Lymphocytes % (Manual) Monocytes % (Manual) Basophils % (Manual) Seg Neutrophils # Lymphocytes # (Manual) Basophils # (Manual) D-Dimer 1279.46 H Sodium Potassium Chloride BUN Creatinine Glucose POC Glucose 173 H Uric Acid Calcium Phosphorus AST Alkaline Phosphatase Ammonia C-Reactive Protein Total Protein Albumin TSH Urine WBC (Auto) Urine Creatinine Urine Total Protein Coronavirus (PCR) 11/27/21 11/27/21 11/27/21 05:17 05:17 11:22 WBC RBC Hgb Hct MCV MCHC RDW Lymph % (Auto) [place] % (Auto) Lymph # (Auto) Seg Neutrophils % Seg Neuts % (Manual) Lymphocytes % (Manual) Monocytes % (Manual) Basophils % (Manual) Seg Neutrophils # Lymphocytes # (Manual) Basophils # (Manual) D-Dimer Sodium 147 H Potassium Chloride 107.3 H BUN 37 H Creatinine 1.6 H Glucose 197 H POC Glucose 185 H Uric Acid Calcium 8.1 L Phosphorus AST Alkaline Phosphatase 211 H Ammonia C-Reactive Protein 13.00 H Total Protein 5.6 L Albumin 2.5 L TSH Urine WBC (Auto) Urine Creatinine Urine Total Protein Coronavirus (PCR) 11/27/21 11/27/21 11/27/21 17:35 21:12 Unknown WBC RBC Hgb Hct MCV MCHC RDW Lymph % (Auto) [place] % (Auto) Lymph # (Auto) Seg Neutrophils % Seg Neuts % (Manual) Lymphocytes % (Manual) Monocytes % (Manual) Basophils % (Manual) Seg Neutrophils # Lymphocytes # (Manual) Basophils # (Manual) D-Dimer Sodium Potassium Chloride BUN Creatinine Glucose POC Glucose 144 H 127 H Uric Acid Calcium Phosphorus AST Alkaline Phosphatase Ammonia C-Reactive Protein Total Protein Albumin TSH Urine WBC (Auto) 13.0 H Urine Creatinine Urine Total Protein Coronavirus (PCR) 11/27/21 11/27/21 11/28/21 Unknown Unknown 06:47 WBC RBC Hgb Hct MCV MCHC RDW Lymph % (Auto) [place] % (Auto) Lymph # (Auto) Seg Neutrophils % Seg Neuts % (Manual) Lymphocytes % (Manual) Monocytes % (Manual) Basophils % (Manual) Seg Neutrophils # Lymphocytes # (Manual) Basophils # (Manual) D-Dimer Sodium 148 H Potassium 3.4 L Chloride 107.4 H BUN 43 H Creatinine 1.6 H Glucose 226 H POC Glucose Uric Acid 9.8 H Calcium 8.3 L Phosphorus AST Alkaline Phosphatase 197 H Ammonia C-Reactive Protein Total Protein 5.6 L Albumin 2.5 L TSH Urine WBC (Auto) Urine Creatinine 80.9 H Urine Total Protein 43 H Coronavirus (PCR) 11/28/21 11/28/21 11/28/21 07:28 11:52 12:59 WBC RBC Hgb Hct MCV MCHC RDW Lymph % (Auto) [place] % (Auto) Lymph # (Auto) Seg Neutrophils % Seg Neuts % (Manual) Lymphocytes % (Manual) Monocytes % (Manual) Basophils % (Manual) Seg Neutrophils # Lymphocytes # (Manual) Basophils # (Manual) D-Dimer Sodium Potassium Chloride BUN Creatinine Glucose POC Glucose 192 H 210 H Uric Acid Calcium Phosphorus AST Alkaline Phosphatase Ammonia 12.0 L C-Reactive Protein Total Protein Albumin TSH Urine WBC (Auto) Urine Creatinine Urine Total Protein Coronavirus (PCR) 11/28/21 11/28/21 11/29/21 17:44 22:20 05:15 WBC RBC 3.31 L Hgb 9.9 L Hct 31.5 L MCV 95 H MCHC RDW 15.5 H Lymph % (Auto) [place] % (Auto) Lymph # (Auto) Seg Neutrophils % Seg Neuts % (Manual) Lymphocytes % (Manual) Monocytes % (Manual) Basophils % (Manual) Seg Neutrophils # Lymphocytes # (Manual) Basophils # (Manual) D-Dimer Sodium Potassium Chloride BUN Creatinine Glucose POC Glucose 213 H 163 H Uric Acid Calcium Phosphorus AST Alkaline Phosphatase Ammonia C-Reactive Protein Total Protein Albumin TSH Urine WBC (Auto) Urine Creatinine Urine Total Protein Coronavirus (PCR) 11/29/21 11/29/21 11/29/21 05:15 11:11 15:45 WBC RBC Hgb Hct MCV MCHC RDW Lymph % (Auto) [place] % (Auto) Lymph # (Auto) Seg Neutrophils % Seg Neuts % (Manual) Lymphocytes % (Manual) Monocytes % (Manual) Basophils % (Manual) Seg Neutrophils # Lymphocytes # (Manual) Basophils # (Manual) D-Dimer Sodium 152 H Potassium 3.2 L Chloride 114.1 H BUN 41 H Creatinine 1.4 H Glucose POC Glucose 149 H 212 H Uric Acid Calcium Phosphorus AST Alkaline Phosphatase Ammonia C-Reactive Protein Total Protein Albumin TSH Urine WBC (Auto) Urine Creatinine Urine Total Protein Coronavirus (PCR) 11/29/21 11/30/21 11/30/21 21:54 07:20 11:23 WBC RBC Hgb Hct MCV MCHC RDW Lymph % (Auto) [place] % (Auto) Lymph # (Auto) Seg Neutrophils % Seg Neuts % (Manual) Lymphocytes % (Manual) Monocytes % (Manual) Basophils % (Manual) Seg Neutrophils # Lymphocytes # (Manual) Basophils # (Manual) D-Dimer Sodium Potassium Chloride BUN Creatinine Glucose POC Glucose 197 H 150 H 180 H Uric Acid Calcium Phosphorus AST Alkaline Phosphatase Ammonia C-Reactive Protein Total Protein Albumin TSH Urine WBC (Auto) Urine Creatinine Urine Total Protein Coronavirus (PCR) 11/30/21 11/30/21 12/01/21 15:55 21:28 06:47 WBC RBC 3.39 L Hgb 10.2 L Hct 32.5 L MCV 96 H MCHC RDW 15.3 H Lymph % (Auto) [place] % (Auto) Lymph # (Auto) Seg Neutrophils % Seg Neuts % (Manual) Lymphocytes % (Manual) Monocytes % (Manual) Basophils % (Manual) Seg Neutrophils # Lymphocytes # (Manual) Basophils # (Manual) D-Dimer Sodium Potassium Chloride BUN Creatinine Glucose POC Glucose 184 H 214 H Uric Acid Calcium Phosphorus AST Alkaline Phosphatase Ammonia C-Reactive Protein Total Protein Albumin TSH Urine WBC (Auto) Urine Creatinine Urine Total Protein Coronavirus (PCR) 12/01/21 12/01/21 12/01/21 06:47 07:51 11:01 WBC RBC Hgb Hct MCV MCHC RDW Lymph % (Auto) [place] % (Auto) Lymph # (Auto) Seg Neutrophils % Seg Neuts % (Manual) Lymphocytes % (Manual) Monocytes % (Manual) Basophils % (Manual) Seg Neutrophils # Lymphocytes # (Manual) Basophils # (Manual) D-Dimer Sodium 164 H* D Potassium 3.1 L Chloride 122.5 H BUN 35 H Creatinine Glucose 200 H POC Glucose 174 H 170 H Uric Acid Calcium Phosphorus AST Alkaline Phosphatase Ammonia C-Reactive Protein Total Protein Albumin TSH Urine WBC (Auto) Urine Creatinine Urine Total Protein Coronavirus (PCR) 12/01/21 12/01/21 12/02/21 17:17 21:24 07:31 WBC RBC Hgb Hct MCV MCHC RDW Lymph % (Auto) [place] % (Auto) Lymph # (Auto) Seg Neutrophils % Seg Neuts % (Manual) Lymphocytes % (Manual) Monocytes % (Manual) Basophils % (Manual) Seg Neutrophils # Lymphocytes # (Manual) Basophils # (Manual) D-Dimer Sodium Potassium Chloride BUN Creatinine Glucose POC Glucose 134 H 180 H 179 H Uric Acid Calcium Phosphorus AST Alkaline Phosphatase Ammonia C-Reactive Protein Total Protein Albumin TSH Urine WBC (Auto) Urine Creatinine Urine Total Protein Coronavirus (PCR) 12/02/21 12/02/21 12/02/21 09:13 10:45 13:12 WBC RBC Hgb Hct MCV MCHC RDW Lymph % (Auto) [place] % (Auto) Lymph # (Auto) Seg Neutrophils % Seg Neuts % (Manual) Lymphocytes % (Manual) Monocytes % (Manual) Basophils % (Manual) Seg Neutrophils # Lymphocytes # (Manual) Basophils # (Manual) D-Dimer Sodium 163 H* 159 H Potassium 3.1 L 3.4 L Chloride 122.5 H 121.4 H BUN 28 H 28 H Creatinine 1.4 H Glucose 244 H 250 H POC Glucose 211 H Uric Acid Calcium Phosphorus AST Alkaline Phosphatase Ammonia C-Reactive Protein Total Protein Albumin TSH Urine WBC (Auto) Urine Creatinine Urine Total Protein Coronavirus (PCR) 12/02/21 12/02/21 12/02/21 13:27 17:01 21:28 WBC RBC Hgb Hct MCV MCHC RDW Lymph % (Auto) [place] % (Auto) Lymph # (Auto) Seg Neutrophils % Seg Neuts % (Manual) Lymphocytes % (Manual) Monocytes % (Manual) Basophils % (Manual) Seg Neutrophils # Lymphocytes # (Manual) Basophils # (Manual) D-Dimer Sodium Potassium Chloride BUN Creatinine Glucose POC Glucose 204 H 120 H 157 H Uric Acid Calcium Phosphorus AST Alkaline Phosphatase Ammonia C-Reactive Protein Total Protein Albumin TSH Urine WBC (Auto) Urine Creatinine Urine Total Protein Coronavirus (PCR) 12/03/21 12/03/21 12/04/21 04:00 12:12 07:17 WBC RBC Hgb Hct MCV MCHC RDW Lymph % (Auto) [place] % (Auto) Lymph # (Auto) Seg Neutrophils % Seg Neuts % (Manual) Lymphocytes % (Manual) Monocytes % (Manual) Basophils % (Manual) Seg Neutrophils # Lymphocytes # (Manual) Basophils # (Manual) D-Dimer Sodium 157 H 154 H Potassium 3.5 L 3.5 L Chloride 118.7 H 116.0 H BUN 21 H Creatinine Glucose 258 H 119 H POC Glucose 107 H Uric Acid Calcium Phosphorus 1.90 L AST Alkaline Phosphatase Ammonia C-Reactive Protein Total Protein Albumin TSH Urine WBC (Auto) Urine Creatinine Urine Total Protein Coronavirus (PCR) 12/04/21 12/04/21 07:17 12:40 WBC RBC 3.52 L Hgb 10.4 L Hct 33.6 L MCV 95 H MCHC 31 L RDW 15.7 H Lymph % (Auto) [place] % (Auto) 14.7 H Lymph # (Auto) 1.0 L Seg Neutrophils % Seg Neuts % (Manual) Lymphocytes % (Manual) Monocytes % (Manual) Basophils % (Manual) Seg Neutrophils # Lymphocytes # (Manual) Basophils # (Manual) D-Dimer Sodium Potassium Chloride BUN Creatinine Glucose POC Glucose 181 H Uric Acid Calcium Phosphorus AST Alkaline Phosphatase Ammonia C-Reactive Protein Total Protein Albumin TSH Urine WBC (Auto) Urine Creatinine Urine Total Protein Coronavirus (PCR)
--- NOTE | 2021-12-04 15:00 | Progress Note ---
Assessment and Plan Assessment and plan: #Acute metabolic encephalopathyimproving -Etiology unknown. Unsure if secondary to COVID-19 pneumonia versus hypernatremia. -Baseline mentation is currently unknown. Neurology consulted; appreciate recs. Holding on chemical sedation unless absolutely necessary. Continue to monitor. #Acute hypoxic respiratory failure secondary to COVID-19resolved #COVID-19 pneumonia Patient weaned from high flow nasal cannula to nasal cannula 4 L Continue daily Decadron x10 days (end date 12/05/2021). Not a candidate for remdesivir. Pulmonary consulted; appreciate recs Infectious disease consulted; appreciate recs Continue weaning as tolerated Proning as tolerated #Insulin dependent type II diabetes mellitus - hemoglobin A1c: Pending - current regimen: NPH 10 units twice daily - blood glucose goal 140-180 while inpatient - continue to monitor #Hypertension Hydralazine 10 mg IV every 6 hours as needed. We will monitor the blood pressure closely # ROSANA (acute kidney injury) secondary to vasomotor nephropathyresolved Creatinine 1.3 (currently at baseline) Patient still has prerenal azotemia Nephrology consulted; appreciate recs Continue IV fluids per nephrology recommendations # Hypokalemia Repleted. Continue to monitor #Hypernatremiaimproving Sodium 164-->157-->154 Nephrology consulted; appreciate recs Continue D5W at 150 cc/hour Monitor electrolytes # Urinary tract infectionresolved Completed IV antibiotic therapy Urine cultures negative for bacteria and positive for Natalia Blood cultures-no growth #Constipation Continue stool softener #CAD #Cardiomyopathy #Chronic HFrEF Cardiology consulted; appreciate recs TTE revealing EF 35 to 40% Continue low-dose beta-tee #Bradycardia Heart rate in the low low 50s Likely secondary to beta-tee #Hyperglycemia Continue insulin sliding scale coverage Blood glucose goal [id number] while inpatient. Continue to monitor #Severe debility Consulted physical therapy and Occupational Therapy; recommend subacute rehab #Advanced care planning -Disease education conducted, care plan discussed, diagnoses discussed, prognosis discussed, and patient acknowledges understanding with care plan -Time: +30 min Disposition Plan: Continue medical management Total Time Spent with Patient (Minutes): 45 minutes History Interval history: No acute events overnight. Hospitalist Physical - Constitutional Vitals: Temp Pulse Resp BP Pulse Ox 98.3 F 63 18 126/76 93 12/04/21 04:35 12/04/21 04:35 12/04/21 04:35 12/04/21 04:35 12/04/21 10:00 General appearance: Present: no acute distress, cachectic - EENT Eyes: Present: PERRL, EOM intact ENT: hearing intact, clear oral mucosa, edentulous - Neck Neck: Present: supple, normal ROM - Respiratory Respiratory effort: normal Respiratory: bilateral: diminished - Cardiovascular Rhythm: regular Heart Sounds: Present: S1 & S2 - Extremities Extremities: no ischemia, pulses intact, pulses symmetrical, No edema, normal temperature, normal color, Full ROM Peripheral Pulses: within normal limits - Abdominal General gastrointestinal: soft, non-tender, non-distended, normal bowel sounds - Integumentary Integumentary: Present: clear, warm, dry - Psychiatric Psychiatric: other (COnfused but responsive to his name. Still not at baseline.) - Neurologic Neurologic: CNII-XII intact, moves all extremities - Allied Health Allied health notes reviewed: nursing Results - Labs CBC & Chem 7: 12/04/21 07:17 12/04/21 07:17 Labs: Laboratory Last Values WBC 5.5 K/mm3 (4.5-11.0) 12/04/21 07:17 RBC 3.52 M/mm3 (3.65-5.03) L 12/04/21 07:17 Hgb 10.4 gm/dl (11.8-15.2) L 12/04/21 07:17 Hct 33.6 % (35.5-45.6) L 12/04/21 07:17 MCV 95 fl (84-94) H 12/04/21 07:17 MCH 30 pg (28-32) 12/04/21 07:17 MCHC 31 % (32-34) L 12/04/21 07:17 RDW 15.7 % (13.2-15.2) H 12/04/21 07:17 Plt Count 284 K/mm3 (140-440) 12/04/21 07:17 Lymph % (Auto) 17.8 % (13.4-35.0) 12/04/21 07:17 Hand % (Auto) 14.7 % (0.0-7.3) H 12/04/21 07:17 Eos % (Auto) 0.6 % (0.0-4.3) 12/04/21 07:17 Baso % (Auto) 0.4 % (0.0-1.8) 12/04/21 07:17 Lymph # (Auto) 1.0 K/mm3 (1.2-5.4) L 12/04/21 07:17 Hand # (Auto) 0.8 K/mm3 (0.0-0.8) 12/04/21 07:17 Eos # (Auto) 0.0 K/mm3 (0.0-0.4) 12/04/21 07:17 Baso # (Auto) 0.0 K/mm3 (0.0-0.1) 12/04/21 07:17 Add Manual Diff Complete 11/21/21 19:36 Total Counted 100 11/21/21 19:36 Seg Neutrophils % 66.5 % (40.0-70.0) 12/04/21 07:17 Seg Neuts % (Manual) 79.0 % (40.0-70.0) H 11/21/21 19:36 Lymphocytes % (Manual) 10.0 % (13.4-35.0) L 11/21/21 19:36 Monocytes % (Manual) 8.0 % (0.0-7.3) H 11/21/21 19:36 Basophils % (Manual) 3.0 % (0.0-1.8) H 11/21/21 19:36 Nucleated RBC % Not Reportable 11/21/21 19:36 Seg Neutrophils # 3.6 K/mm3 (1.8-7.7) 12/04/21 07:17 Seg Neutrophils # Man 5.3 K/mm3 (1.8-7.7) 11/21/21 19:36 Band Neutrophils # 0.0 K/mm3 11/21/21 19:36 Lymphocytes # (Manual) 0.7 K/mm3 (1.2-5.4) L 11/21/21 19:36 Abs React Lymphs (Man) 0.0 K/mm3 11/21/21 19:36 Monocytes # (Manual) 0.5 K/mm3 (0.0-0.8) 11/21/21 19:36 Eosinophils # (Manual) 0.0 K/mm3 (0.0-0.4) 11/21/21 19:36 Basophils # (Manual) 0.2 K/mm3 (0.0-0.1) H 11/21/21 19:36 Metamyelocytes # 0.0 K/mm3 11/21/21 19:36 Myelocytes # 0.0 K/mm3 11/21/21 19:36 Promyelocytes # 0.0 K/mm3 11/21/21 19:36 Blast Cells # 0.0 K/mm3 11/21/21 19:36 WBC Morphology Not Reportable 11/21/21 19:36 Hypersegmented Neuts Not Reportable 11/21/21 19:36 Hyposegmented Neuts Not Reportable 11/21/21 19:36 Hypogranular Neuts Not Reportable 11/21/21 19:36 Smudge Cells Not Reportable 11/21/21 19:36 Toxic Granulation Not Reportable 11/21/21 19:36 Toxic Vacuolation Not Reportable 11/21/21 19:36 Dohle Bodies Not Reportable 11/21/21 19:36 Pelger-Huet Anomaly Not Reportable 11/21/21 19:36 Luan Rods Not Reportable 11/21/21 19:36 Platelet Estimate Consistent w auto 11/21/21 19:36 Clumped Platelets Not Reportable 11/21/21 19:36 Plt Clumps, EDTA Not Reportable 11/21/21 19:36 Large Platelets Not Reportable 11/21/21 19:36 Giant Platelets Not Reportable 11/21/21 19:36 Platelet Satelliting Not Reportable 11/21/21 19:36 Plt Morphology Comment Not Reportable 11/21/21 19:36 RBC Morphology Normal 11/21/21 19:36 Dimorphic RBCs Not Reportable 11/21/21 19:36 Polychromasia Not Reportable 11/21/21 19:36 Hypochromasia Not Reportable 11/21/21 19:36 Poikilocytosis Not Reportable 11/21/21 19:36 Anisocytosis Not Reportable 11/21/21 19:36 Microcytosis Not Reportable 11/21/21 19:36 Macrocytosis Not Reportable 11/21/21 19:36 Spherocytes Not Reportable 11/21/21 19:36 Pappenheimer Bodies Not Reportable 11/21/21 19:36 Sickle Cells Not Reportable 11/21/21 19:36 Target Cells Not Reportable 11/21/21 19:36 Tear Drop Cells Not Reportable 11/21/21 19:36 Ovalocytes Not Reportable 11/21/21 19:36 Helmet Cells Not Reportable 11/21/21 19:36 Christie-Otwell Bodies Not Reportable 11/21/21 19:36 Cleghorn Rings Not Reportable 11/21/21 19:36 Star Cells Not Reportable 11/21/21 19:36 Bite Cells Not Reportable 11/21/21 19:36 Crenated Cell Not Reportable 11/21/21 19:36 Elliptocytes Not Reportable 11/21/21 19:36 Acanthocytes (Spur) Not Reportable 11/21/21 19:36 Rouleaux Not Reportable 11/21/21 19:36 Hemoglobin C Crystals Not Reportable 11/21/21 19:36 Schistocytes Not Reportable 11/21/21 19:36 Malaria parasites Not Reportable 11/21/21 19:36 Kalia Bodies Not Reportable 11/21/21 19:36 Hem Pathologist Commnt No 11/21/21 19:36 D-Dimer 1279.46 ng/mlDDU (0-234) H 11/26/21 16:44 Sodium 154 mmol/L (137-145) H 12/04/21 07:17 Potassium 3.5 mmol/L (3.6-5.0) L 12/04/21 07:17 Chloride 116.0 mmol/L (98-107) H 12/04/21 07:17 Carbon Dioxide 28 mmol/L (22-30) 12/04/21 07:17 Anion Gap 14 mmol/L 12/04/21 07:17 BUN 17 mg/dL (9-20) 12/04/21 07:17 Creatinine 1.2 mg/dL (0.8-1.3) 12/04/21 07:17 Estimated GFR > 60 ml/min 12/04/21 07:17 BUN/Creatinine Ratio 14 % 12/04/21 07:17 Glucose 119 mg/dL (75-100) H 12/04/21 07:17 POC Glucose 181 mg/dL (70-105) H 12/04/21 12:40 Osmolality 316 Mosm/kg 11/27/21 Unknown Uric Acid 9.8 mg/dL (3.5-7.6) H 11/27/21 Unknown Calcium 8.4 mg/dL (8.4-10.2) 12/04/21 07:17 Phosphorus 1.90 mg/dL (2.5-4.5) L 12/03/21 04:00 Magnesium 2.30 mg/dL (1.7-2.3) 12/03/21 04:00 Total Bilirubin 0.40 mg/dL (0.1-1.2) 11/28/21 06:47 AST 22 units/L (5-40) 11/28/21 06:47 ALT 28 units/L (7-56) 11/28/21 06:47 Alkaline Phosphatase 197 units/L (35-129) H 11/28/21 06:47 Ammonia 12.0 umol/L (25-60) L 11/28/21 12:59 C-Reactive Protein 13.00 mg/dL (0.00-1.30) H 11/27/21 05:17 Total Protein 5.6 g/dL (6.3-8.2) L 11/28/21 06:47 Albumin 2.5 g/dL (3.9-5) L 11/28/21 06:47 Albumin/Globulin Ratio 0.8 % 11/28/21 06:47 Procalcitonin 3.10 ng/mL (<0.15) 11/26/21 08:21 TSH 4.800 mlU/mL (0.270-4.200) H 11/21/21 19:37 Urine Color Kimberli (Yellow) 11/27/21 Unknown Urine Turbidity Slightly-cloudy (Clear) 11/27/21 Unknown Urine pH 5.0 (5.0-7.0) 11/27/21 Unknown Ur Specific Payne 1.013 (1.003-1.030) 11/27/21 Unknown Urine Protein <15 mg/dl mg/dL (Negative) 11/27/21 Unknown Urine Glucose (UA) 50 mg/dL (Negative) 11/27/21 Unknown Urine Ketones Tr mg/dL (Negative) 11/27/21 Unknown Urine Blood Neg (Negative) 11/27/21 Unknown Urine Nitrite Neg (Negative) 11/27/21 Unknown Urine Bilirubin Neg (Negative) 11/27/21 Unknown Urine Urobilinogen < 2.0 mg/dL (<2.0) 11/27/21 Unknown Ur Leukocyte Esterase Neg (Negative) 11/27/21 Unknown Urine WBC (Auto) 13.0 /HPF (0.0-6.0) H 11/27/21 Unknown Urine RBC (Auto) 2.0 /HPF (0.0-6.0) 11/27/21 Unknown U Epithel Cells (Auto) 1.0 /HPF (0-13.0) 11/27/21 Unknown Urine Bacteria (Auto) 1+ /HPF (Negative) 11/27/21 Unknown Urine Mucus Few /HPF 11/27/21 Unknown Urine Yeast (Budding) 2+ /HPF 11/27/21 Unknown Urine Creatinine 80.9 mg/dL (0.1-20.0) H 11/27/21 Unknown Urine Sodium 36 mmol/L 11/27/21 Unknown Urine Total Protein 43 mg/dL (5-11.8) H 11/27/21 Unknown Coronavirus (PCR) Positive (Negative) A 11/23/21 Unknown Fritz/IV: Voiding Method Incontinent Active Medications - Current Medications Current Medications: Generic Name Dose Route Start Last Admin Trade Name Freq PRN Reason Stop Dose Admin Acetaminophen 650 mg 11/22/21 05:48 Acetaminophen 325 Mg Tab PO Q4H PRN Pain MILD(1-3)/Fever >100.5/BRODY Albuterol 2.5 mg 11/25/21 12:00 Albuterol 2.5 Mg/3 Ml Nebu IH Q4HRT PRN Shortness Of Breath Dexamethasone 6 mg 11/26/21 12:00 12/04/21 11:23 Dexamethasone 4 Mg/Ml Vial IV 12/05/21 10:01 6 mg Q24HR NANDINI Administration Dextrose 50 ml 12/02/21 15:42 Dextrose 50% In Water (25gm) 50 Ml Syringe IV Q30MIN PRN Hypoglycemia Protocol Docusate Sodium 100 mg 11/25/21 22:00 12/04/21 11:23 Docusate Sodium 100 Mg Cap PO 100 mg BID NANDINI Administration Enoxaparin Sodium 70 mg 11/26/21 12:30 12/04/21 11:23 Enoxaparin 80 Mg/0.8 Ml Inj SUB-Q 70 mg Q12HR NANDINI Administration Hydralazine HCl 10 mg 11/22/21 05:58 Hydralazine 20 Mg/1 Ml Inj IV Q6H PRN Blood Pressure Hydromorphone HCl 0.5 mg 11/22/21 05:48 11/23/21 06:02 Hydromorphone 1 Mg/1 Ml Inj IV 0.5 mg Q3H PRN Administration Pain , Severe (7-10) Dextrose 1,000 mls @ 150 mls/hr 12/02/21 08:00 12/04/21 07:10 D5w IV 125 mls/hr DIRECT NANDINI Administration Potassium Chloride 10 meq in 100 mls @ 100 mls/hr 12/04/21 15:00 Kcl 10meq/100ml IV 12/04/21 18:59 Q1H NANDINI Insulin Human Isoph/Insulin Regular 10 unit 12/02/21 17:00 12/04/21 08:57 Insulin Nph/Regular 70/30 Inj SUB-Q Not Given BIDDIAB NANDINI Insulin Human Lispro 0 unit 11/22/21 07:30 12/04/21 08:56 Insulin Lispro 100 Unit/Ml SUB-Q Not Given ACHS [facility] Protocol Metoprolol Tartrate 12.5 mg 11/30/21 22:00 12/04/21 11:22 Metoprolol Tartrate 25 Mg Tab PO 12.5 mg BID NANDINI Administration Morphine Sulfate 2 mg 11/22/21 05:48 12/03/21 21:38 Morphine 2 Mg/1 Ml Inj IV 2 mg Q4H PRN Administration Pain, Moderate (4-6) Ondansetron HCl 4 mg 11/22/21 05:48 12/03/21 21:38 Ondansetron 4 Mg/2 Ml Inj IV 4 mg Q8H PRN Administration Nausea And Vomiting Sodium Chloride 10 ml 11/22/21 10:00 12/04/21 11:22 Sodium Chloride 0.9% 10 Ml Flush Syringe IV 10 ml BID NANDINI Administration Sodium Chloride 10 ml 11/22/21 05:48 Sodium Chloride 0.9% 10 Ml Flush Syringe IV PRN PRN LINE FLUSH Nutrition/Malnutrition Assess - Dietary Evaluation Nutrition/Malnutrition Findings: Nutrition Notes Start: 11/22/21 14:16 Freq: Status: Active Protocol: Document 11/27/21 09:32 NICKO (Rec: 11/27/21 09:53 NICKO [id number]) Nutrition Notes Initial or Follow up Brief Note Current Diet Cardiac Consistent Carbohydrates Diet (since B ), D Suppl (L 11/27). Height 5 ft 11 in Weight 68.8 kg Aspers Body Weight (kg) 78.18 BMI 21.1 Weight change and time frame 5.3 Kg body weight gain in 5 days reported. Weight Status Underweight Subjective/Other Information RD consult for routine F/U on %PO intake of meals and ONS. No report available on %PO intake of meals at the time, last from 11/23, was at 50%. Increase Dietary Supplements to TID. Change to Glucerna to support Diabetes control. ROSANA is improving, according to Progress notes. Percent of energy/protein needs met: Prescribed Cardiac/Consistent Carbohydrates Diet provides for energy/protein needs (1, 977 Kcal/86 g) during LOS; additionally, Dietary Supplements will compensate for possible Poor PO intake of meals with 660 Kcal and 30 g of protein. Current % PO Fair (50-74%) #1 Nutrition Diagnosis Underweight Diagnosis Progress(for reassessment Continues documentation) Nutrition Intervention Change Diet Order: Continue Cardiac Consistent Carbohydrates Diet. Add Supplement/Snack (indicate name/kcal 8 fl oz Glucerna; TID /protein ) Provides kCal: 660 Provides Protein (gm) 30 Goal #1 Compensate, through dietary supplementation, for possible poor or insufficient PO intake of meals during LOS. Follow-Up By: 12/04/21 Additional Comments Continue monitoring food tolerance, %PO intake of meals , and BM.
[2021-12-04] MEDS: POTASSIUM CHLORIDE 10 MEQ 10 MEQ/100 ML BAG IV SCH ×4 (16:08→21:29)
[2021-12-05] MEDS: INSULIN LISPRO 100 UNIT/ML SUB-Q SCH ×3 (07:30→22:27)
[2021-12-05] MEDS: INSULIN NPH/REGULAR 70/30 INJ SUB-Q SCH (07:30)
[2021-12-05 08:40] LABS: BUN/Creatinine Ratio 12; Blood Urea Nitrogen 14 mg/dL (9-20); Calcium 8.3 mg/dL (8.4-10.2); Hemolysis Index 8
[2021-12-05] MEDS: DOCUSATE SODIUM 100 MG CAP PO SCH ×2 (10:12→22:16)
[2021-12-05] MEDS: METOPROLOL TARTRATE 25 MG TAB PO SCH (10:12)
[2021-12-05] MEDS: dexAMETHasone 4 MG/ML VIAL IV SCH (10:12)
--- NOTE | 2021-12-05 11:49 | Progress Note ---
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 Currently anticoagulated on Lovenox COPD DM Echo 11/27/2021- EF 40 to 45%, mild global hypokinesis of left ventricle. Right ventricular systolic function is normal. Mild aortic regurgitation. Trace tricuspid and pulmonic regurgitation Echo 12/01/2020- LVEF 35 - 40%. LV systolic function is moderately decreased,Grade I (mild) diastolic dysfunction. There were technical limitations during this study due to patient positioning and patient body habitus. Poor views unable to evaluate any of the valves PET Stress 01/31/2021- Abnormal pharmacological PET stress test. There is a small sized mild to moderate intensity partially reversible perfusion defect seen in the apical inferior wall consistent with infarct/scar and a small amount of ischemia. SSS 3, SRS 1, SDS 2. TID 0.84(normal).Severely depressed resting LV systolic function with a calculated LVEF 22% at rest which increased to 29% with peak stress. Global LV hypokinesis. Coronary calcifications were not seen by chest CT, however CT for attenuation correction is not sensitive. Stress ECG was negative for ischemia. No symptoms of chest pain with vasodilator stress Outpatient medications: Coreg 6.25 mg p.o. twice daily atorvastatin 40 mg p.o. nightly, spironolactone 25 mg p.o. daily, Entresto 49-51 mg p.o. twice daily, Lasix 80 mg p.o. 3 times daily Plan: Patient is sinus bradycardic with heart rate trending 40s to 50s on monitor. Will hold beta-tee No MIREYA or ARB due to per nephrology recs Continue present management Patient seen in conjunction with Dr. Javier who agrees with this plan of care - Patient Problems (1) Sinus bradycardia Current Visit: Yes Status: Acute (2) COVID-19 Current Visit: Yes Status: Acute (3) ROSANA (acute kidney injury) Current Visit: Yes Status: Acute (4) Acute metabolic encephalopathy Current Visit: Yes Status: Acute (5) Metabolic encephalopathy Current Visit: Yes Status: Acute Subjective Date of service: 12/05/21 Principal diagnosis: Acute encephalopathy Interval history: Patient sitting in bed in no acute distress. Patient remains altered but is more alert this AM Patient sinus bradycardia 40s to 50s monitor Objective Vital Signs Temp Pulse Resp BP Pulse Ox 12/05/21 10:00 95 12/05/21 05:41 97.6 F 60 19 122/65 96 12/04/21 22:10 95 12/04/21 21:28 97.7 F 65 19 123/63 90 12/04/21 19:57 96 12/04/21 17:43 97.7 F 57 L 18 107/71 90 - Physical Examination General: No Apparent Distress, Other (AMS) HEENT: Positive: PERRL, Mucus Membranes Dry Neck: Positive: trachea midline Cardiac: Positive: Regular Rhythm, Bradycardia Lungs: Positive: Normal Breath Sounds Neuro: Positive: Grossly Intact Abdomen: Positive: Soft Skin: Negative: Rash, Suspicious Lesions, Ulceration Extremities: Present: upper extr. pulses. Absent: edema - Labs and Meds Comprehensive Metabolic Panel 12/05/21 Range/Units 07:08 Sodium 152 H (137-145) mmol/L Potassium 3.4 L (3.6-5.0) mmol/L Chloride 115.0 H (98-107) mmol/L Carbon Dioxide 26 (22-30) mmol/L BUN 14 (9-20) mg/dL Creatinine 1.2 (0.8-1.3) mg/dL Glucose 95 (75-100) mg/dL Calcium 8.3 L (8.4-10.2) mg/dL - Imaging and Cardiology Echo: report reviewed - Telemetry EKG Rhythm: Sinus Bradycardia - EKG Sinus rhythms and dysrhythmias: sinus rhythm, sinus bradycardia
[2021-12-05] MEDS: DEXTROSE 5% IN WATER 1,000 ML IV SCH (12:17)
[2021-12-05] MEDS: ENOXAPARIN 80 MG/0.8 ML INJ SUB-Q SCH ×2 (12:17→22:16)
--- NOTE | 2021-12-05 14:43 | Progress Note ---
Assessment and Plan Assessment and plan: #Acute metabolic encephalopathyimproving -Etiology unknown. Unsure if secondary to COVID-19 pneumonia versus hypernatremia. -Baseline mentation is currently unknown. Neurology consulted; appreciate recs. Holding on chemical sedation unless absolutely necessary. Continue to monitor. #Acute hypoxic respiratory failure secondary to COVID-19resolved #COVID-19 pneumonia Patient weaned to room air Continue daily Decadron x10 days (end date 12/05/2021). Not a candidate for remdesivir. Pulmonary consulted; appreciate recs Infectious disease consulted; appreciate recs Continue weaning as tolerated Proning as tolerated #Insulin dependent type II diabetes mellitus - hemoglobin A1c: Pending - current regimen: NPH 10 units twice daily - blood glucose goal 140-180 while inpatient - continue to monitor #Hypertension Hydralazine 10 mg IV every 6 hours as needed. We will monitor the blood pressure closely # ROSANA (acute kidney injury) secondary to vasomotor nephropathyresolved Creatinine 1.3 (currently at baseline) Patient still has prerenal azotemia Nephrology consulted; appreciate recs Continue IV fluids per nephrology recommendations # Hypokalemia Repleted. Continue to monitor #Hypernatremiaimproving Sodium 164-->157-->154 Nephrology consulted; appreciate recs Continue D5W at 150 cc/hour Monitor electrolytes # Urinary tract infectionresolved Completed IV antibiotic therapy Urine cultures negative for bacteria and positive for Natalia Blood cultures-no growth #Constipation Continue stool softener #CAD #Cardiomyopathy #Chronic HFrEF Cardiology consulted; appreciate recs TTE revealing EF 35 to 40% Continue low-dose beta-tee #Bradycardia Heart rate in the low low 50s Likely secondary to beta-tee. Holding beta tee. #Hyperglycemia Continue insulin sliding scale coverage Blood glucose goal [id number] while inpatient. Continue to monitor #Severe debility Consulted physical therapy and Occupational Therapy; recommend subacute rehab #Advanced care planning -Disease education conducted, care plan discussed, diagnoses discussed, prognosis discussed, and patient acknowledges understanding with care plan -Time: +30 min Disposition Plan: Continue medical management Total Time Spent with Patient (Minutes): 45 min History Interval history: no acute events overnight. Hospitalist Physical - Constitutional Vitals: Temp Pulse Resp BP Pulse Ox 97.6 F 60 19 122/65 95 12/05/21 05:41 12/05/21 05:41 12/05/21 05:41 12/05/21 05:41 12/05/21 10:00 General appearance: Present: no acute distress, cachectic - EENT Eyes: Present: PERRL, EOM intact ENT: hearing intact, clear oral mucosa, edentulous - Neck Neck: Present: supple, normal ROM - Respiratory Respiratory effort: normal Respiratory: bilateral: CTA - Cardiovascular Rhythm: regular Heart Sounds: Present: S1 & S2 - Extremities Extremities: no ischemia, pulses intact, pulses symmetrical, No edema, normal temperature, normal color, Full ROM Peripheral Pulses: within normal limits - Abdominal General gastrointestinal: soft, non-tender, non-distended, normal bowel sounds - Integumentary Integumentary: Present: clear, warm, dry - Neurologic Neurologic: CNII-XII intact - Allied Health Allied health notes reviewed: nursing Results - Labs CBC & Chem 7: 12/04/21 07:17 12/05/21 07:08 Labs: Laboratory Last Values WBC 5.5 K/mm3 (4.5-11.0) 12/04/21 07:17 RBC 3.52 M/mm3 (3.65-5.03) L 12/04/21 07:17 Hgb 10.4 gm/dl (11.8-15.2) L 12/04/21 07:17 Hct 33.6 % (35.5-45.6) L 12/04/21 07:17 MCV 95 fl (84-94) H 12/04/21 07:17 MCH 30 pg (28-32) 12/04/21 07:17 MCHC 31 % (32-34) L 12/04/21 07:17 RDW 15.7 % (13.2-15.2) H 12/04/21 07:17 Plt Count 284 K/mm3 (140-440) 12/04/21 07:17 Lymph % (Auto) 17.8 % (13.4-35.0) 12/04/21 07:17 [place] % (Auto) 14.7 % (0.0-7.3) H 12/04/21 07:17 Eos % (Auto) 0.6 % (0.0-4.3) 12/04/21 07:17 Baso % (Auto) 0.4 % (0.0-1.8) 12/04/21 07:17 Lymph # (Auto) 1.0 K/mm3 (1.2-5.4) L 12/04/21 07:17 [place] # (Auto) 0.8 K/mm3 (0.0-0.8) 12/04/21 07:17 Eos # (Auto) 0.0 K/mm3 (0.0-0.4) 12/04/21 07:17 Baso # (Auto) 0.0 K/mm3 (0.0-0.1) 12/04/21 07:17 Add Manual Diff Complete 11/21/21 19:36 Total Counted 100 11/21/21 19:36 Seg Neutrophils % 66.5 % (40.0-70.0) 12/04/21 07:17 Seg Neuts % (Manual) 79.0 % (40.0-70.0) H 11/21/21 19:36 Lymphocytes % (Manual) 10.0 % (13.4-35.0) L 11/21/21 19:36 Monocytes % (Manual) 8.0 % (0.0-7.3) H 11/21/21 19:36 Basophils % (Manual) 3.0 % (0.0-1.8) H 11/21/21 19:36 Nucleated RBC % Not Reportable 11/21/21 19:36 Seg Neutrophils # 3.6 K/mm3 (1.8-7.7) 12/04/21 07:17 Seg Neutrophils # Man 5.3 K/mm3 (1.8-7.7) 11/21/21 19:36 Band Neutrophils # 0.0 K/mm3 11/21/21 19:36 Lymphocytes # (Manual) 0.7 K/mm3 (1.2-5.4) L 11/21/21 19:36 Abs React Lymphs (Man) 0.0 K/mm3 11/21/21 19:36 Monocytes # (Manual) 0.5 K/mm3 (0.0-0.8) 11/21/21 19:36 Eosinophils # (Manual) 0.0 K/mm3 (0.0-0.4) 11/21/21 19:36 Basophils # (Manual) 0.2 K/mm3 (0.0-0.1) H 11/21/21 19:36 Metamyelocytes # 0.0 K/mm3 11/21/21 19:36 Myelocytes # 0.0 K/mm3 11/21/21 19:36 Promyelocytes # 0.0 K/mm3 11/21/21 19:36 Blast Cells # 0.0 K/mm3 11/21/21 19:36 WBC Morphology Not Reportable 11/21/21 19:36 Hypersegmented Neuts Not Reportable 11/21/21 19:36 Hyposegmented Neuts Not Reportable 11/21/21 19:36 Hypogranular Neuts Not Reportable 11/21/21 19:36 Smudge Cells Not Reportable 11/21/21 19:36 Toxic Granulation Not Reportable 11/21/21 19:36 Toxic Vacuolation Not Reportable 11/21/21 19:36 Dohle Bodies Not Reportable 11/21/21 19:36 Pelger-Huet Anomaly Not Reportable 11/21/21 19:36 Luan Rods Not Reportable 11/21/21 19:36 Platelet Estimate Consistent w auto 11/21/21 19:36 Clumped Platelets Not Reportable 11/21/21 19:36 Plt Clumps, EDTA Not Reportable 11/21/21 19:36 Large Platelets Not Reportable 11/21/21 19:36 Giant Platelets Not Reportable 11/21/21 19:36 Platelet Satelliting Not Reportable 11/21/21 19:36 Plt Morphology Comment Not Reportable 11/21/21 19:36 RBC Morphology Normal 11/21/21 19:36 Dimorphic RBCs Not Reportable 11/21/21 19:36 Polychromasia Not Reportable 11/21/21 19:36 Hypochromasia Not Reportable 11/21/21 19:36 Poikilocytosis Not Reportable 11/21/21 19:36 Anisocytosis Not Reportable 11/21/21 19:36 Microcytosis Not Reportable 11/21/21 19:36 Macrocytosis Not Reportable 11/21/21 19:36 Spherocytes Not Reportable 11/21/21 19:36 Pappenheimer Bodies Not Reportable 11/21/21 19:36 Sickle Cells Not Reportable 11/21/21 19:36 Target Cells Not Reportable 11/21/21 19:36 Tear Drop Cells Not Reportable 11/21/21 19:36 Ovalocytes Not Reportable 11/21/21 19:36 Helmet Cells Not Reportable 11/21/21 19:36 [place] Bodies Not Reportable 11/21/21 19:36 [place] Rings Not Reportable 11/21/21 19:36 [place] Cells Not Reportable 11/21/21 19:36 Bite Cells Not Reportable 11/21/21 19:36 Crenated Cell Not Reportable 11/21/21 19:36 Elliptocytes Not Reportable 11/21/21 19:36 Acanthocytes (Spur) Not Reportable 11/21/21 19:36 Rouleaux Not Reportable 11/21/21 19:36 Hemoglobin C Crystals Not Reportable 11/21/21 19:36 Schistocytes Not Reportable 11/21/21 19:36 Malaria parasites Not Reportable 11/21/21 19:36 Kalia Bodies Not Reportable 11/21/21 19:36 Hem Pathologist Commnt No 11/21/21 19:36 D-Dimer 1279.46 ng/mlDDU (0-234) H 11/26/21 16:44 Sodium 152 mmol/L (137-145) H 12/05/21 07:08 Potassium 3.4 mmol/L (3.6-5.0) L 12/05/21 07:08 Chloride 115.0 mmol/L (98-107) H 12/05/21 07:08 Carbon Dioxide 26 mmol/L (22-30) 12/05/21 07:08 Anion Gap 14 mmol/L 12/05/21 07:08 BUN 14 mg/dL (9-20) 12/05/21 07:08 Creatinine 1.2 mg/dL (0.8-1.3) 12/05/21 07:08 Estimated GFR > 60 ml/min 12/05/21 07:08 BUN/Creatinine Ratio 12 % 12/05/21 07:08 Glucose 95 mg/dL (75-100) 12/05/21 07:08 POC Glucose 102 mg/dL (70-105) 12/05/21 12:01 Osmolality 316 Mosm/kg 11/27/21 Unknown Uric Acid 9.8 mg/dL (3.5-7.6) H 11/27/21 Unknown Calcium 8.3 mg/dL (8.4-10.2) L 12/05/21 07:08 Phosphorus 1.90 mg/dL (2.5-4.5) L 12/03/21 04:00 Magnesium 2.30 mg/dL (1.7-2.3) 12/03/21 04:00 Total Bilirubin 0.40 mg/dL (0.1-1.2) 11/28/21 06:47 AST 22 units/L (5-40) 11/28/21 06:47 ALT 28 units/L (7-56) 11/28/21 06:47 Alkaline Phosphatase 197 units/L (35-129) H 11/28/21 06:47 Ammonia 12.0 umol/L (25-60) L 11/28/21 12:59 C-Reactive Protein 13.00 mg/dL (0.00-1.30) H 11/27/21 05:17 Total Protein 5.6 g/dL (6.3-8.2) L 11/28/21 06:47 Albumin 2.5 g/dL (3.9-5) L 11/28/21 06:47 Albumin/Globulin Ratio 0.8 % 11/28/21 06:47 Procalcitonin 3.10 ng/mL (<0.15) 11/26/21 08:21 TSH 4.800 mlU/mL (0.270-4.200) H 11/21/21 19:37 Urine Color Kimberli (Yellow) 11/27/21 Unknown Urine Turbidity Slightly-cloudy (Clear) 11/27/21 Unknown Urine pH 5.0 (5.0-7.0) 11/27/21 Unknown Ur Specific [place] 1.013 (1.003-1.030) 11/27/21 Unknown Urine Protein <15 mg/dl mg/dL (Negative) 11/27/21 Unknown Urine Glucose (UA) 50 mg/dL (Negative) 11/27/21 Unknown Urine Ketones Tr mg/dL (Negative) 11/27/21 Unknown Urine Blood Neg (Negative) 11/27/21 Unknown Urine Nitrite Neg (Negative) 11/27/21 Unknown Urine Bilirubin Neg (Negative) 11/27/21 Unknown Urine Urobilinogen < 2.0 mg/dL (<2.0) 11/27/21 Unknown Ur Leukocyte Esterase Neg (Negative) 11/27/21 Unknown Urine WBC (Auto) 13.0 /HPF (0.0-6.0) H 11/27/21 Unknown Urine RBC (Auto) 2.0 /HPF (0.0-6.0) 11/27/21 Unknown U Epithel Cells (Auto) 1.0 /HPF (0-13.0) 11/27/21 Unknown Urine Bacteria (Auto) 1+ /HPF (Negative) 11/27/21 Unknown Urine Mucus Few /HPF 11/27/21 Unknown Urine Yeast (Budding) 2+ /HPF 11/27/21 Unknown Urine Creatinine 80.9 mg/dL (0.1-20.0) H 11/27/21 Unknown Urine Sodium 36 mmol/L 11/27/21 Unknown Urine Total Protein 43 mg/dL (5-11.8) H 11/27/21 Unknown Coronavirus (PCR) Positive (Negative) A 11/23/21 Unknown Fritz/IV: Voiding Method Incontinent Active Medications - Current Medications Current Medications: Generic Name Dose Route Start Last Admin Trade Name Freq PRN Reason Stop Dose Admin Acetaminophen 650 mg 11/22/21 05:48 Acetaminophen 325 Mg Tab PO Q4H PRN Pain MILD(1-3)/Fever >100.5/BRODY Albuterol 2.5 mg 11/25/21 12:00 Albuterol 2.5 Mg/3 Ml Nebu IH Q4HRT PRN Shortness Of Breath Dextrose 50 ml 12/02/21 15:42 Dextrose 50% In Water (25gm) 50 Ml Syringe IV Q30MIN PRN Hypoglycemia Protocol Docusate Sodium 100 mg 11/25/21 22:00 12/05/21 10:12 Docusate Sodium 100 Mg Cap PO 100 mg BID NANDINI Administration Enoxaparin Sodium 70 mg 11/26/21 12:30 12/05/21 12:17 Enoxaparin 80 Mg/0.8 Ml Inj SUB-Q 70 mg Q12HR NANDINI Administration Hydralazine HCl 10 mg 11/22/21 05:58 Hydralazine 20 Mg/1 Ml Inj IV Q6H PRN Blood Pressure Hydromorphone HCl 0.5 mg 11/22/21 05:48 11/23/21 06:02 Hydromorphone 1 Mg/1 Ml Inj IV 0.5 mg Q3H PRN Administration Pain , Severe (7-10) Dextrose 1,000 mls @ 150 mls/hr 12/02/21 08:00 12/05/21 12:17 D5w IV 125 mls/hr DIRECT NANDINI Administration Potassium Chloride 10 meq in 100 mls @ 100 mls/hr 12/05/21 15:00 Kcl 10meq/100ml IV 12/05/21 18:59 Q1H NANDINI Insulin Human Isoph/Insulin Regular 10 unit 12/02/21 17:00 12/05/21 07:30 Insulin Nph/Regular 70/30 Inj SUB-Q Not Given BIDDIAB NANDINI Insulin Human Lispro 0 unit 11/22/21 07:30 12/05/21 07:30 Insulin Lispro 100 Unit/Ml SUB-Q Not Given ACHS [facility] Protocol Morphine Sulfate 2 mg 11/22/21 05:48 12/03/21 21:38 Morphine 2 Mg/1 Ml Inj IV 2 mg Q4H PRN Administration Pain, Moderate (4-6) Ondansetron HCl 4 mg 11/22/21 05:48 12/03/21 21:38 Ondansetron 4 Mg/2 Ml Inj IV 4 mg Q8H PRN Administration Nausea And Vomiting Sodium Chloride 10 ml 11/22/21 10:00 12/05/21 12:19 Sodium Chloride 0.9% 10 Ml Flush Syringe IV 10 ml BID NANDINI Administration Sodium Chloride 10 ml 11/22/21 05:48 Sodium Chloride 0.9% 10 Ml Flush Syringe IV PRN PRN LINE FLUSH Nutrition/Malnutrition Assess - Dietary Evaluation Nutrition/Malnutrition Findings: Nutrition Notes Start: 11/22/21 14:16 Freq: Status: Active Protocol: Document 12/04/21 16:40 NICKO (Rec: 12/04/21 16:51 NICKO [id number]) Nutrition Notes Initial or Follow up Brief Note Current Diet Cardiac Consistent Carbohydrates Diet (since B ). Height 5 ft 11 in Weight 68.8 kg [place] Body Weight (kg) 78.18 BMI 21.1 Weight change and time frame No body weight change reported . Weight Status Underweight Subjective/Other Information RD consult for routine F/U on %PO intake of meals and ONS. Pt's PO intake of meals and ONS has been neglible (0%), according to ADL notes. MD requested to d/c ONS. Percent of energy/protein needs met: Prescribed Cardiac/Consistent Carbohydrates Diet provides for energy/protein needs (1, 977 Kcal/86 g) during LOS Current % PO Negligible #1 Nutrition Diagnosis Underweight Comments: Pt's PO intake of meals and ONS has been neglible (0%), according to ADL notes. MD requested to d/c ONS. Diagnosis Progress(for reassessment Worsened documentation) Nutrition Intervention Change Diet Order: Continue Cardiac Consistent Carbohydrates Diet. Add Supplement/Snack (indicate name/kcal d/c /protein ) Follow-Up By: 12/08/21 Additional Comments Continue monitoring food tolerance, %PO intake of meals , and BM.
[2021-12-05] MEDS ORDERED: POTASSIUM CHLORIDE 10 MEQ 10 MEQ/100 ML BAG IV SCH (15:00)
--- NOTE | 2021-12-05 17:16 | Progress Note ---
Subjective Date of service: 12/05/21 Principal diagnosis: Acute encephalopathy Interval history: mpression * Nonoliguric acute kidney injury secondary to prerenal azotemia (FeNa 0.5%) --Baseline SCr 1.3mg/dL * Acute hypoxic respiratory failure secondary to COVID 19 PNA * Severe COVID-19 pneumonia * Hypernatremia * Hypokalemia * Acute encephalopathy * Cardiomyopathy - EF 35% * Anemia * Urinary tract infection - Klebsiella pneumonia * Mild left hydronephrosis Recommendations * Renal function now at baseline * Na is better today at last check, continue d5w * pulm note reviewed, avoid over diuresis with hypernatremia * Continue to hold MIREYA inhibitor/ARB at this time * Encourage free water intake * Management of COVID-19 PNA per ID and primary team * Abx per ID * Maintain MAP >65 * Avoid potential nephrotoxins * Monitor lytes, fluid balance closely * Strict I/O Subjective Principal diagnosis: Acute encephalopathy Interval history: Patient has no complaints. No acute events overnight Objective - General Appearance exam deferred, primary team exam noted Objective - Vital Signs Vital signs: Vital Signs - 12hr 12/05/21 12/05/21 05:41 10:00 Temperature 97.6 F Pulse Rate 60 Pulse Rate [ 49 L From Monitor] Respiratory 19 Rate Blood Pressure 122/65 O2 Sat by Pulse 96 96 Oximetry - Lab 12/04/21 07:17 12/05/21 07:08 Most recent lab results Calcium 8.3 mg/dL (8.4-10.2) L 12/05/21 07:08 Phosphorus 1.90 mg/dL (2.5-4.5) L 12/03/21 04:00 Magnesium 2.30 mg/dL (1.7-2.3) 12/03/21 04:00 Urine Creatinine 80.9 mg/dL (0.1-20.0) H 11/27/21 Unknown Urine Sodium 36 mmol/L 11/27/21 Unknown Urine Total Protein 43 mg/dL (5-11.8) H 11/27/21 Unknown Medications & Allergies - Medications Allergies/Adverse Reactions: Allergies No Known Allergies Allergy (Verified 11/22/21 05:55) Home Medications: Home Medications Medication Instructions Recorded Confirmed Last Taken Type Furosemide [Lasix TAB] 80 mg PO TID 11/24/21 11/24/21 Unknown History Gabapentin [Neurontin] 300 mg PO BID 11/24/21 11/27/21 11/19/21 09:12 History 300 mg Sacubitril/Valsartan [Entresto 1 tab PO BID 11/24/21 11/27/21 11/19/21 09:12 History 49-51 mg] 1 tab Spironolactone [Aldactone] 25 mg PO QDAY 11/24/21 11/27/21 11/19/21 09:12 History 25 mg Tamsulosin [Flomax] 0.4 mg PO QDAY 11/24/21 11/27/21 11/18/21 22:02 History 0.4 mg carvediloL [Coreg] 6.25 mg PO BID 11/24/21 11/27/21 11/19/21 09:12 History 6.25mg AtorvaSTATin [Lipitor] 40 mg PO QHS 11/27/21 11/27/21 11/19/21 09:12 History 40 mg Insulin Glargine,Hum.rec.anlog 12 unit SQ QHS 11/27/21 11/27/21 11/18/21 22:02 History [Lantus Solostar] 12 units Insulin Lispro [Admelog] 1 - 12 unit SQ TIDAC 11/27/21 11/27/21 11/19/21 08:32 History 6 units Insulin Lispro [Admelog] 4 unit SQ TID 11/27/21 11/27/21 11/19/21 08:33 History 4 units oxyCODONE /ACETAMINOPHEN [Percocet 1 tab PO Q6HR PRN 11/27/21 11/27/21 11/19/21 03:57 History 5/325] 1 tab Active Medications: Generic Name Dose Route Start Last Admin Trade Name Freq PRN Reason Stop Dose Admin Acetaminophen 650 mg 11/22/21 05:48 Acetaminophen 325 Mg Tab PO Q4H PRN Pain MILD(1-3)/Fever >100.5/BRODY Albuterol 2.5 mg 11/25/21 12:00 Albuterol 2.5 Mg/3 Ml Nebu IH Q4HRT PRN Shortness Of Breath Dextrose 50 ml 12/02/21 15:42 Dextrose 50% In Water (25gm) 50 Ml Syringe IV Q30MIN PRN Hypoglycemia Protocol Docusate Sodium 100 mg 11/25/21 22:00 12/05/21 10:12 Docusate Sodium 100 Mg Cap PO 100 mg BID NANDINI Administration Enoxaparin Sodium 70 mg 11/26/21 12:30 12/05/21 12:17 Enoxaparin 80 Mg/0.8 Ml Inj SUB-Q 70 mg Q12HR NANDINI Administration Hydralazine HCl 10 mg 11/22/21 05:58 Hydralazine 20 Mg/1 Ml Inj IV Q6H PRN Blood Pressure Hydromorphone HCl 0.5 mg 11/22/21 05:48 11/23/21 06:02 Hydromorphone 1 Mg/1 Ml Inj IV 0.5 mg Q3H PRN Administration Pain , Severe (7-10) Dextrose 1,000 mls @ 150 mls/hr 12/02/21 08:00 12/05/21 12:17 D5w IV 125 mls/hr DIRECT NANDINI Administration Potassium Chloride 10 meq in 100 mls @ 100 mls/hr 12/05/21 15:00 Kcl 10meq/100ml IV 12/05/21 18:59 Q1H [facility] Insulin Human Isoph/Insulin Regular 10 unit 12/02/21 17:00 12/05/21 07:30 Insulin Nph/Regular 70/30 Inj SUB-Q Not Given BIDDIAB [facility] Insulin Human Lispro 0 unit 11/22/21 07:30 12/05/21 11:30 Insulin Lispro 100 Unit/Ml SUB-Q Not Given ACHS [facility] Protocol Morphine Sulfate 2 mg 11/22/21 05:48 12/03/21 21:38 Morphine 2 Mg/1 Ml Inj IV 2 mg Q4H PRN Administration Pain, Moderate (4-6) Ondansetron HCl 4 mg 11/22/21 05:48 12/03/21 21:38 Ondansetron 4 Mg/2 Ml Inj IV 4 mg Q8H PRN Administration Nausea And Vomiting Sodium Chloride 10 ml 11/22/21 10:00 12/05/21 12:19 Sodium Chloride 0.9% 10 Ml Flush Syringe IV 10 ml BID NANDINI Administration Sodium Chloride 10 ml 11/22/21 05:48 Sodium Chloride 0.9% 10 Ml Flush Syringe IV PRN PRN LINE FLUSH
[2021-12-05] MEDS ORDERED: POTASSIUM CHLORIDE ER 20 MEQ TAB PO ONE (21:00)
[2021-12-06 06:43] LABS: BUN/Creatinine Ratio 13; Blood Urea Nitrogen 15 mg/dL (9-20); Calcium 7.9 mg/dL (8.4-10.2); Hemolysis Index 2
--- NOTE | 2021-12-06 07:56 | Progress Note ---
Assessment and Plan 81 y/o male with acute respiratory failure likely secondary to COVID but also could be from volume overload, with renal failure and Kleibsiella UTI. 12/06/21: Pulm status is stable. Oxygen went from 2-3 liters but no real documentation as to why. Can wean back down as sat is 100. Continue to wean it as tolerated for sats >88%. Will see PRN. Appears to be waiting on placement 12/03/21: No new recs. Will see PRN. Oxygen continues to improve 12/02/21: now on 4 liters NC with good sats. Continue to wean as tolerated. given his heart failure, from a pulmonary standpoint strongly suggest keeping net negative as much as possible. Will see as needed. If oxygen is required at discharge, can use COVID as diagnosis. 12/01/21: I/O has not bee accurate since Wednesday. unsure off fluid balance. Renal and cards following so will defer to them. Continue to wean FiO2 for sats >88%. Negative fluid balance would help with oxygenation. 11/28/21: Please continue net negative state daily as this has really helped with oxygen requirement. Wean FiO2 for sats >88% 11/27/21: Prone as tolerated. Wean FiO2 for sats >88%. Suggest daily net negative state if bp and renal function will allow. Cards now following, defer diuresis to them. Appreciate ID note. Continue steroids and remdesivir. ID considering actemra, awaiting repeat CRP 1. ID-Was on rocephin in [place], then was discharged on levaquin for 2 days. Kleb is resistant to ampicillin bactrim and tetracycline. Was sensitive to everything else. ID following. not currently on abx. Has been afebile no white count 2. Pulm- acute respiratory failure with worsening while in house. Could be all related to COVID but given his history of systolic CHF, could be volume related as well as it was so acute after a couple days of IV hydration. If renal function and bp would allow, would attempt some yennifer IV diuresis. Prone given COVID and agree with steroids and Remdesivir. 3. Guarded prognosis, will continue to follow Subjective Date of service: 12/06/21 Principal diagnosis: Acute encephalopathy Interval history: Chart reviewed. Pulm status appears unchanged. Objective Vital Signs - 12hr 12/05/21 12/05/21 12/05/21 20:03 20:45 21:47 Temperature 97.4 F L Pulse Rate 56 L Respiratory 18 Rate Blood Pressure 135/75 O2 Sat by Pulse 96 100 100 Oximetry 12/06/21 12/06/21 02:00 04:49 Temperature 98.2 F Pulse Rate 52 L 60 Respiratory 18 Rate Blood Pressure 121/63 O2 Sat by Pulse 100 Oximetry Constitutional: no acute distress, alert, other (confused) Eyes: non-icteric ENT: oropharynx moist Neck: supple Effort: normal Ascultation: Bilateral: diminished breath sounds Cardiovascular: regular rate and rhythm Gastrointestinal: normoactive bowel sounds Integumentary: normal CBC and BMP: 12/04/21 07:17 12/06/21 06:04 ABG, PT/INR, D-dimer: PT/INR, D-dimer D-Dimer 1279.46 ng/mlDDU (0-234) H 11/26/21 16:44 Abnormal lab findings: Abnormal Labs 11/21/21 11/21/21 11/21/21 19:36 19:36 19:37 WBC RBC 3.56 L Hgb 10.8 L Hct 34.1 L MCV 96 H MCHC RDW 15.3 H Lymph % (Auto) Ward % (Auto) Lymph # (Auto) Seg Neutrophils % Seg Neuts % (Manual) 79.0 H Lymphocytes % (Manual) 10.0 L Monocytes % (Manual) 8.0 H Basophils % (Manual) 3.0 H Seg Neutrophils # Lymphocytes # (Manual) 0.7 L Basophils # (Manual) 0.2 H D-Dimer Sodium Potassium 3.2 L Chloride BUN 23 H Creatinine 1.4 H Glucose 210 H POC Glucose Uric Acid Calcium 8.2 L Phosphorus AST 45 H Alkaline Phosphatase 133 H Ammonia C-Reactive Protein Total Protein Albumin 3.0 L TSH Urine WBC (Auto) 48.0 H Urine Creatinine Urine Total Protein Coronavirus (PCR) 11/21/21 11/22/21 11/22/21 19:37 11:52 15:52 WBC RBC Hgb Hct MCV MCHC RDW Lymph % (Auto) Ward % (Auto) Lymph # (Auto) Seg Neutrophils % Seg Neuts % (Manual) Lymphocytes % (Manual) Monocytes % (Manual) Basophils % (Manual) Seg Neutrophils # Lymphocytes # (Manual) Basophils # (Manual) D-Dimer Sodium Potassium Chloride BUN Creatinine Glucose POC Glucose 144 H 194 H Uric Acid Calcium Phosphorus AST Alkaline Phosphatase Ammonia C-Reactive Protein Total Protein Albumin TSH 4.800 H Urine WBC (Auto) Urine Creatinine Urine Total Protein Coronavirus (PCR) 11/22/21 11/23/21 11/23/21 20:42 04:48 04:48 WBC RBC 3.22 L Hgb 9.8 L Hct 30.9 L MCV 96 H MCHC RDW Lymph % (Auto) Ward % (Auto) 9.4 H Lymph # (Auto) 1.1 L Seg Neutrophils % 76.5 H Seg Neuts % (Manual) Lymphocytes % (Manual) Monocytes % (Manual) Basophils % (Manual) Seg Neutrophils # Lymphocytes # (Manual) Basophils # (Manual) D-Dimer Sodium Potassium 3.1 L Chloride BUN 24 H Creatinine Glucose 112 H POC Glucose 155 H Uric Acid Calcium 8.1 L Phosphorus AST Alkaline Phosphatase Ammonia C-Reactive Protein Total Protein Albumin TSH Urine WBC (Auto) Urine Creatinine Urine Total Protein Coronavirus (PCR) 11/23/21 11/23/21 11/23/21 08:03 12:24 16:37 WBC RBC Hgb Hct MCV MCHC RDW Lymph % (Auto) Ward % (Auto) Lymph # (Auto) Seg Neutrophils % Seg Neuts % (Manual) Lymphocytes % (Manual) Monocytes % (Manual) Basophils % (Manual) Seg Neutrophils # Lymphocytes # (Manual) Basophils # (Manual) D-Dimer Sodium Potassium Chloride BUN Creatinine Glucose POC Glucose 111 H 106 H 112 H Uric Acid Calcium Phosphorus AST Alkaline Phosphatase Ammonia C-Reactive Protein Total Protein Albumin TSH Urine WBC (Auto) Urine Creatinine Urine Total Protein Coronavirus (PCR) 11/23/21 11/23/21 11/24/21 20:45 Unknown 11:47 WBC RBC Hgb Hct MCV MCHC RDW Lymph % (Auto) Ward % (Auto) Lymph # (Auto) Seg Neutrophils % Seg Neuts % (Manual) Lymphocytes % (Manual) Monocytes % (Manual) Basophils % (Manual) Seg Neutrophils # Lymphocytes # (Manual) Basophils # (Manual) D-Dimer Sodium Potassium Chloride BUN Creatinine Glucose POC Glucose 179 H 142 H Uric Acid Calcium Phosphorus AST Alkaline Phosphatase Ammonia C-Reactive Protein Total Protein Albumin TSH Urine WBC (Auto) Urine Creatinine Urine Total Protein Coronavirus (PCR) Positive A 11/24/21 11/24/2122 18:09 20:52 05:27 WBC RBC 3.22 L Hgb 9.6 L Hct 31.1 L MCV 97 H MCHC 31 L RDW 15.6 H Lymph % (Auto) 10.5 L Ward % (Auto) Lymph # (Auto) 1.1 L Seg Neutrophils % 82.0 H Seg Neuts % (Manual) Lymphocytes % (Manual) Monocytes % (Manual) Basophils % (Manual) Seg Neutrophils # 8.7 H Lymphocytes # (Manual) Basophils # (Manual) D-Dimer Sodium Potassium Chloride BUN Creatinine Glucose POC Glucose 107 H 209 H Uric Acid Calcium Phosphorus AST Alkaline Phosphatase Ammonia C-Reactive Protein Total Protein Albumin TSH Urine WBC (Auto) Urine Creatinine Urine Total Protein Coronavirus (PCR) 11/25/21 11/25/21 11/25/21 05:27 05:27 13:43 WBC RBC Hgb Hct MCV MCHC RDW Lymph % (Auto) Ward % (Auto) Lymph # (Auto) Seg Neutrophils % Seg Neuts % (Manual) Lymphocytes % (Manual) Monocytes % (Manual) Basophils % (Manual) Seg Neutrophils # Lymphocytes # (Manual) Basophils # (Manual) D-Dimer Sodium 146 H Potassium Chloride 108.2 H BUN Creatinine Glucose 145 H 191 H POC Glucose Uric Acid Calcium 7.8 L Phosphorus AST 67 H Alkaline Phosphatase Ammonia C-Reactive Protein 25.00 H Total Protein 5.1 L D Albumin 2.5 L TSH Urine WBC (Auto) Urine Creatinine Urine Total Protein Coronavirus (PCR) 11/25/21 11/26/21 11/26/21 18:16 05:00 08:01 WBC RBC Hgb Hct MCV MCHC RDW Lymph % (Auto) Ward % (Auto) Lymph # (Auto) Seg Neutrophils % Seg Neuts % (Manual) Lymphocytes % (Manual) Monocytes % (Manual) Basophils % (Manual) Seg Neutrophils # Lymphocytes # (Manual) Basophils # (Manual) D-Dimer Sodium Potassium Chloride BUN 28 H Creatinine 1.7 H Glucose 236 H POC Glucose 149 H 206 H Uric Acid Calcium 7.8 L Phosphorus AST 51 H Alkaline Phosphatase 233 H Ammonia C-Reactive Protein Total Protein 5.9 L Albumin 2.3 L TSH Urine WBC (Auto) Urine Creatinine Urine Total Protein Coronavirus (PCR) 11/26/21 11/26/21 11/26/21 08:21 11:09 16:37 WBC RBC Hgb Hct MCV MCHC RDW Lymph % (Auto) Ward % (Auto) Lymph # (Auto) Seg Neutrophils % Seg Neuts % (Manual) Lymphocytes % (Manual) Monocytes % (Manual) Basophils % (Manual) Seg Neutrophils # Lymphocytes # (Manual) Basophils # (Manual) D-Dimer Sodium Potassium Chloride BUN 28 H Creatinine 1.5 H Glucose POC Glucose 198 H 154 H Uric Acid Calcium Phosphorus AST Alkaline Phosphatase Ammonia C-Reactive Protein Total Protein Albumin TSH Urine WBC (Auto) Urine Creatinine Urine Total Protein Coronavirus (PCR) 11/26/21 11/26/21 11/27/21 16:44 22:20 05:17 WBC 14.0 H RBC 3.12 L Hgb 9.1 L Hct 29.3 L MCV MCHC 31 L RDW Lymph % (Auto) Ward % (Auto) Lymph # (Auto) Seg Neutrophils % Seg Neuts % (Manual) Lymphocytes % (Manual) Monocytes % (Manual) Basophils % (Manual) Seg Neutrophils # Lymphocytes # (Manual) Basophils # (Manual) D-Dimer 1279.46 H Sodium Potassium Chloride BUN Creatinine Glucose POC Glucose 173 H Uric Acid Calcium Phosphorus AST Alkaline Phosphatase Ammonia C-Reactive Protein Total Protein Albumin TSH Urine WBC (Auto) Urine Creatinine Urine Total Protein Coronavirus (PCR) 11/27/21 11/27/21 11/27/21 05:17 05:17 11:22 WBC RBC Hgb Hct MCV MCHC RDW Lymph % (Auto) Ward % (Auto) Lymph # (Auto) Seg Neutrophils % Seg Neuts % (Manual) Lymphocytes % (Manual) Monocytes % (Manual) Basophils % (Manual) Seg Neutrophils # Lymphocytes # (Manual) Basophils # (Manual) D-Dimer Sodium 147 H Potassium Chloride 107.3 H BUN 37 H Creatinine 1.6 H Glucose 197 H POC Glucose 185 H Uric Acid Calcium 8.1 L Phosphorus AST Alkaline Phosphatase 211 H Ammonia C-Reactive Protein 13.00 H Total Protein 5.6 L Albumin 2.5 L TSH Urine WBC (Auto) Urine Creatinine Urine Total Protein Coronavirus (PCR) 11/27/21 11/27/21 11/27/21 17:35 21:12 Unknown WBC RBC Hgb Hct MCV MCHC RDW Lymph % (Auto) Ward % (Auto) Lymph # (Auto) Seg Neutrophils % Seg Neuts % (Manual) Lymphocytes % (Manual) Monocytes % (Manual) Basophils % (Manual) Seg Neutrophils # Lymphocytes # (Manual) Basophils # (Manual) D-Dimer Sodium Potassium Chloride BUN Creatinine Glucose POC Glucose 144 H 127 H Uric Acid Calcium Phosphorus AST Alkaline Phosphatase Ammonia C-Reactive Protein Total Protein Albumin TSH Urine WBC (Auto) 13.0 H Urine Creatinine Urine Total Protein Coronavirus (PCR) 11/27/21 11/27/21 11/28/21 Unknown Unknown 06:47 WBC RBC Hgb Hct MCV MCHC RDW Lymph % (Auto) Ward % (Auto) Lymph # (Auto) Seg Neutrophils % Seg Neuts % (Manual) Lymphocytes % (Manual) Monocytes % (Manual) Basophils % (Manual) Seg Neutrophils # Lymphocytes # (Manual) Basophils # (Manual) D-Dimer Sodium 148 H Potassium 3.4 L Chloride 107.4 H BUN 43 H Creatinine 1.6 H Glucose 226 H POC Glucose Uric Acid 9.8 H Calcium 8.3 L Phosphorus AST Alkaline Phosphatase 197 H Ammonia C-Reactive Protein Total Protein 5.6 L Albumin 2.5 L TSH Urine WBC (Auto) Urine Creatinine 80.9 H Urine Total Protein 43 H Coronavirus (PCR) 11/28/21 11/28/21 11/28/21 07:28 11:52 12:59 WBC RBC Hgb Hct MCV MCHC RDW Lymph % (Auto) Ward % (Auto) Lymph # (Auto) Seg Neutrophils % Seg Neuts % (Manual) Lymphocytes % (Manual) Monocytes % (Manual) Basophils % (Manual) Seg Neutrophils # Lymphocytes # (Manual) Basophils # (Manual) D-Dimer Sodium Potassium Chloride BUN Creatinine Glucose POC Glucose 192 H 210 H Uric Acid Calcium Phosphorus AST Alkaline Phosphatase Ammonia 12.0 L C-Reactive Protein Total Protein Albumin TSH Urine WBC (Auto) Urine Creatinine Urine Total Protein Coronavirus (PCR) 11/28/21 11/28/21 11/29/21 17:44 22:20 05:15 WBC RBC 3.31 L Hgb 9.9 L Hct 31.5 L MCV 95 H MCHC RDW 15.5 H Lymph % (Auto) Ward % (Auto) Lymph # (Auto) Seg Neutrophils % Seg Neuts % (Manual) Lymphocytes % (Manual) Monocytes % (Manual) Basophils % (Manual) Seg Neutrophils # Lymphocytes # (Manual) Basophils # (Manual) D-Dimer Sodium Potassium Chloride BUN Creatinine Glucose POC Glucose 213 H 163 H Uric Acid Calcium Phosphorus AST Alkaline Phosphatase Ammonia C-Reactive Protein Total Protein Albumin TSH Urine WBC (Auto) Urine Creatinine Urine Total Protein Coronavirus (PCR) 11/29/21 11/29/21 11/29/21 05:15 11:11 15:45 WBC RBC Hgb Hct MCV MCHC RDW Lymph % (Auto) Ward % (Auto) Lymph # (Auto) Seg Neutrophils % Seg Neuts % (Manual) Lymphocytes % (Manual) Monocytes % (Manual) Basophils % (Manual) Seg Neutrophils # Lymphocytes # (Manual) Basophils # (Manual) D-Dimer Sodium 152 H Potassium 3.2 L Chloride 114.1 H BUN 41 H Creatinine 1.4 H Glucose POC Glucose 149 H 212 H Uric Acid Calcium Phosphorus AST Alkaline Phosphatase Ammonia C-Reactive Protein Total Protein Albumin TSH Urine WBC (Auto) Urine Creatinine Urine Total Protein Coronavirus (PCR) 11/29/21 11/30/21 11/30/21 21:54 07:20 11:23 WBC RBC Hgb Hct MCV MCHC RDW Lymph % (Auto) Ward % (Auto) Lymph # (Auto) Seg Neutrophils % Seg Neuts % (Manual) Lymphocytes % (Manual) Monocytes % (Manual) Basophils % (Manual) Seg Neutrophils # Lymphocytes # (Manual) Basophils # (Manual) D-Dimer Sodium Potassium Chloride BUN Creatinine Glucose POC Glucose 197 H 150 H 180 H Uric Acid Calcium Phosphorus AST Alkaline Phosphatase Ammonia C-Reactive Protein Total Protein Albumin TSH Urine WBC (Auto) Urine Creatinine Urine Total Protein Coronavirus (PCR) 11/30/21 11/30/21 12/01/21 15:55 21:28 06:47 WBC RBC 3.39 L Hgb 10.2 L Hct 32.5 L MCV 96 H MCHC RDW 15.3 H Lymph % (Auto) Ward % (Auto) Lymph # (Auto) Seg Neutrophils % Seg Neuts % (Manual) Lymphocytes % (Manual) Monocytes % (Manual) Basophils % (Manual) Seg Neutrophils # Lymphocytes # (Manual) Basophils # (Manual) D-Dimer Sodium Potassium Chloride BUN Creatinine Glucose POC Glucose 184 H 214 H Uric Acid Calcium Phosphorus AST Alkaline Phosphatase Ammonia C-Reactive Protein Total Protein Albumin TSH Urine WBC (Auto) Urine Creatinine Urine Total Protein Coronavirus (PCR) 12/01/21 12/01/21 12/01/21 06:47 07:51 11:01 WBC RBC Hgb Hct MCV MCHC RDW Lymph % (Auto) Ward % (Auto) Lymph # (Auto) Seg Neutrophils % Seg Neuts % (Manual) Lymphocytes % (Manual) Monocytes % (Manual) Basophils % (Manual) Seg Neutrophils # Lymphocytes # (Manual) Basophils # (Manual) D-Dimer Sodium 164 H* D Potassium 3.1 L Chloride 122.5 H BUN 35 H Creatinine Glucose 200 H POC Glucose 174 H 170 H Uric Acid Calcium Phosphorus AST Alkaline Phosphatase Ammonia C-Reactive Protein Total Protein Albumin TSH Urine WBC (Auto) Urine Creatinine Urine Total Protein Coronavirus (PCR) 12/01/21 12/01/21 12/02/21 17:17 21:24 07:31 WBC RBC Hgb Hct MCV MCHC RDW Lymph % (Auto) Ward % (Auto) Lymph # (Auto) Seg Neutrophils % Seg Neuts % (Manual) Lymphocytes % (Manual) Monocytes % (Manual) Basophils % (Manual) Seg Neutrophils # Lymphocytes # (Manual) Basophils # (Manual) D-Dimer Sodium Potassium Chloride BUN Creatinine Glucose POC Glucose 134 H 180 H 179 H Uric Acid Calcium Phosphorus AST Alkaline Phosphatase Ammonia C-Reactive Protein Total Protein Albumin TSH Urine WBC (Auto) Urine Creatinine Urine Total Protein Coronavirus (PCR) 12/02/21 12/02/21 12/02/21 09:13 10:45 13:12 WBC RBC Hgb Hct MCV MCHC RDW Lymph % (Auto) Ward % (Auto) Lymph # (Auto) Seg Neutrophils % Seg Neuts % (Manual) Lymphocytes % (Manual) Monocytes % (Manual) Basophils % (Manual) Seg Neutrophils # Lymphocytes # (Manual) Basophils # (Manual) D-Dimer Sodium 163 H* 159 H Potassium 3.1 L 3.4 L Chloride 122.5 H 121.4 H BUN 28 H 28 H Creatinine 1.4 H Glucose 244 H 250 H POC Glucose 211 H Uric Acid Calcium Phosphorus AST Alkaline Phosphatase Ammonia C-Reactive Protein Total Protein Albumin TSH Urine WBC (Auto) Urine Creatinine Urine Total Protein Coronavirus (PCR) 12/02/21 12/02/21 12/02/21 13:27 17:01 21:28 WBC RBC Hgb Hct MCV MCHC RDW Lymph % (Auto) Ward % (Auto) Lymph # (Auto) Seg Neutrophils % Seg Neuts % (Manual) Lymphocytes % (Manual) Monocytes % (Manual) Basophils % (Manual) Seg Neutrophils # Lymphocytes # (Manual) Basophils # (Manual) D-Dimer Sodium Potassium Chloride BUN Creatinine Glucose POC Glucose 204 H 120 H 157 H Uric Acid Calcium Phosphorus AST Alkaline Phosphatase Ammonia C-Reactive Protein Total Protein Albumin TSH Urine WBC (Auto) Urine Creatinine Urine Total Protein Coronavirus (PCR) 12/03/21 12/03/21 12/04/21 04:00 12:12 07:17 WBC RBC Hgb Hct MCV MCHC RDW Lymph % (Auto) Ward % (Auto) Lymph # (Auto) Seg Neutrophils % Seg Neuts % (Manual) Lymphocytes % (Manual) Monocytes % (Manual) Basophils % (Manual) Seg Neutrophils # Lymphocytes # (Manual) Basophils # (Manual) D-Dimer Sodium 157 H 154 H Potassium 3.5 L 3.5 L Chloride 118.7 H 116.0 H BUN 21 H Creatinine Glucose 258 H 119 H POC Glucose 107 H Uric Acid Calcium Phosphorus 1.90 L AST Alkaline Phosphatase Ammonia C-Reactive Protein Total Protein Albumin TSH Urine WBC (Auto) Urine Creatinine Urine Total Protein Coronavirus (PCR) 12/04/21 12/04/21 12/04/21 07:17 12:40 16:24 WBC RBC 3.52 L Hgb 10.4 L Hct 33.6 L MCV 95 H MCHC 31 L RDW 15.7 H Lymph % (Auto) Ward % (Auto) 14.7 H Lymph # (Auto) 1.0 L Seg Neutrophils % Seg Neuts % (Manual) Lymphocytes % (Manual) Monocytes % (Manual) Basophils % (Manual) Seg Neutrophils # Lymphocytes # (Manual) Basophils # (Manual) D-Dimer Sodium Potassium Chloride BUN Creatinine Glucose POC Glucose 181 H 140 H Uric Acid Calcium Phosphorus AST Alkaline Phosphatase Ammonia C-Reactive Protein Total Protein Albumin TSH Urine WBC (Auto) Urine Creatinine Urine Total Protein Coronavirus (PCR) 12/04/21 12/05/21 12/05/21 21:27 07:08 16:42 WBC RBC Hgb Hct MCV MCHC RDW Lymph % (Auto) Ward % (Auto) Lymph # (Auto) Seg Neutrophils % Seg Neuts % (Manual) Lymphocytes % (Manual) Monocytes % (Manual) Basophils % (Manual) Seg Neutrophils # Lymphocytes # (Manual) Basophils # (Manual) D-Dimer Sodium 152 H Potassium 3.4 L Chloride 115.0 H BUN Creatinine Glucose POC Glucose 141 H 139 H Uric Acid Calcium 8.3 L Phosphorus AST Alkaline Phosphatase Ammonia C-Reactive Protein Total Protein Albumin TSH Urine WBC (Auto) Urine Creatinine Urine Total Protein Coronavirus (PCR) 12/06/21 06:04 WBC RBC Hgb Hct MCV MCHC RDW Lymph % (Auto) Ward % (Auto) Lymph # (Auto) Seg Neutrophils % Seg Neuts % (Manual) Lymphocytes % (Manual) Monocytes % (Manual) Basophils % (Manual) Seg Neutrophils # Lymphocytes # (Manual) Basophils # (Manual) D-Dimer Sodium 157 H Potassium 3.5 L Chloride 118.8 H BUN Creatinine Glucose 103 H POC Glucose Uric Acid Calcium 7.9 L Phosphorus AST Alkaline Phosphatase Ammonia C-Reactive Protein Total Protein Albumin TSH Urine WBC (Auto) Urine Creatinine Urine Total Protein Coronavirus (PCR)
--- NOTE | 2021-12-06 08:49 | Progress Note ---
Subjective Date of service: 12/13/21 Principal diagnosis: Acute encephalopathy Interval history: mpression * Nonoliguric acute kidney injury secondary to prerenal azotemia (FeNa 0.5%) --Baseline SCr 1.3mg/dL * Acute hypoxic respiratory failure secondary to COVID 19 PNA * Severe COVID-19 pneumonia * Hypernatremia * Hypokalemia * Acute encephalopathy * Cardiomyopathy - EF 35% * Anemia * Urinary tract infection - Klebsiella pneumonia * Mild left hydronephrosis Recommendations * Renal function now at baseline * Na is elevated today, continue d5w * pulm note reviewed, avoid over diuresis with hypernatremia * Continue to hold MIREYA inhibitor/ARB at this time * Encourage free water intake * Management of COVID-19 PNA per ID and primary team * Abx per ID * Maintain MAP >65 * Avoid potential nephrotoxins * Monitor lytes, fluid balance closely * Strict I/O Subjective Principal diagnosis: Acute encephalopathy Interval history: Patient has no complaints. No acute events overnight Objective - General Appearance exam deferred, primary team exam noted Objective - Vital Signs Vital signs: Vital Signs - 12hr 12/05/21 12/06/21 12/06/21 21:47 02:00 04:49 Temperature 98.2 F Pulse Rate 52 L 60 Respiratory 18 Rate Blood Pressure 121/63 O2 Sat by Pulse 100 100 Oximetry - Lab 12/04/21 07:17 12/06/21 06:04 Most recent lab results Calcium 7.9 mg/dL (8.4-10.2) L 12/06/21 06:04 Phosphorus 1.90 mg/dL (2.5-4.5) L 12/03/21 04:00 Magnesium 2.30 mg/dL (1.7-2.3) 12/03/21 04:00 Urine Creatinine 80.9 mg/dL (0.1-20.0) H 11/27/21 Unknown Urine Sodium 36 mmol/L 11/27/21 Unknown Urine Total Protein 43 mg/dL (5-11.8) H 11/27/21 Unknown Medications & Allergies - Medications Allergies/Adverse Reactions: Allergies No Known Allergies Allergy (Verified 11/22/21 05:55) Home Medications: Home Medications Medication Instructions Recorded Confirmed Last Taken Type Furosemide [Lasix TAB] 80 mg PO TID 11/24/21 11/24/21 Unknown History Gabapentin [Neurontin] 300 mg PO BID 11/24/21 11/27/21 11/19/21 09:12 History 300 mg Sacubitril/Valsartan [Entresto 1 tab PO BID 11/24/21 11/27/21 11/19/21 09:12 History 49-51 mg] 1 tab Spironolactone [Aldactone] 25 mg PO QDAY 11/24/21 11/27/21 11/19/21 09:12 History 25 mg Tamsulosin [Flomax] 0.4 mg PO QDAY 11/24/21 11/27/21 11/18/21 22:02 History 0.4 mg carvediloL [Coreg] 6.25 mg PO BID 11/24/21 11/27/21 11/19/21 09:12 History 6.25mg AtorvaSTATin [Lipitor] 40 mg PO QHS 11/27/21 11/27/21 11/19/21 09:12 History 40 mg Insulin Glargine,Hum.rec.anlog 12 unit SQ QHS 11/27/21 11/27/21 11/18/21 22:02 History [Lantus Solostar] 12 units Insulin Lispro [Admelog] 1 - 12 unit SQ TIDAC 11/27/21 11/27/21 11/19/21 08:32 History 6 units Insulin Lispro [Admelog] 4 unit SQ TID 11/27/21 11/27/21 11/19/21 08:33 History 4 units oxyCODONE /ACETAMINOPHEN [Percocet 1 tab PO Q6HR PRN 11/27/21 11/27/21 11/19/21 03:57 History 5/325] 1 tab Active Medications: Generic Name Dose Route Start Last Admin Trade Name Freq PRN Reason Stop Dose Admin Acetaminophen 650 mg 11/22/21 05:48 Acetaminophen 325 Mg Tab PO Q4H PRN Pain MILD(1-3)/Fever >100.5/BRODY Albuterol 2.5 mg 11/25/21 12:00 Albuterol 2.5 Mg/3 Ml Nebu IH Q4HRT PRN Shortness Of Breath Dextrose 50 ml 12/02/21 15:42 Dextrose 50% In Water (25gm) 50 Ml Syringe IV Q30MIN PRN Hypoglycemia Protocol Docusate Sodium 100 mg 11/25/21 22:00 12/05/21 22:16 Docusate Sodium 100 Mg Cap PO 100 mg BID NANDINI Administration Enoxaparin Sodium 70 mg 11/26/21 12:30 12/05/21 22:16 Enoxaparin 80 Mg/0.8 Ml Inj SUB-Q 70 mg Q12HR NANDINI Administration Hydromorphone HCl 0.5 mg 11/22/21 05:48 11/23/21 06:02 Hydromorphone 1 Mg/1 Ml Inj IV 0.5 mg Q3H PRN Administration Pain , Severe (7-10) Dextrose 1,000 mls @ 150 mls/hr 12/02/21 08:00 12/05/21 12:17 D5w IV 125 mls/hr DIRECT NANDINI Administration Insulin Human Isoph/Insulin Regular 10 unit 12/02/21 17:00 12/05/21 07:30 Insulin Nph/Regular 70/30 Inj SUB-Q Not Given BIDDIAB [facility] Insulin Human Lispro 0 unit 11/22/21 07:30 12/05/21 22:27 Insulin Lispro 100 Unit/Ml SUB-Q Not Given ACHS [facility] Protocol Morphine Sulfate 2 mg 11/22/21 05:48 12/03/21 21:38 Morphine 2 Mg/1 Ml Inj IV 2 mg Q4H PRN Administration Pain, Moderate (4-6) Ondansetron HCl 4 mg 11/22/21 05:48 12/03/21 21:38 Ondansetron 4 Mg/2 Ml Inj IV 4 mg Q8H PRN Administration Nausea And Vomiting Sodium Chloride 10 ml 11/22/21 10:00 12/05/21 22:16 Sodium Chloride 0.9% 10 Ml Flush Syringe IV 10 ml BID NANDINI Administration Sodium Chloride 10 ml 11/22/21 05:48 Sodium Chloride 0.9% 10 Ml Flush Syringe IV PRN PRN LINE FLUSH
--- NOTE | 2021-12-06 10:38 | Progress Note ---
Assessment and Plan Continue current management. - Patient Problems (1) Acute respiratory failure with hypoxia Current Visit: Yes Status: Acute (2) Acute metabolic encephalopathy Current Visit: Yes Status: Acute (3) Pneumonia due to COVID-19 virus Current Visit: Yes Status: Acute (4) ROSANA (acute kidney injury) Current Visit: Yes Status: Acute (5) Chronic HFrEF (heart failure with reduced ejection fraction) Current Visit: Yes Status: Chronic (6) Cardiomyopathy Current Visit: Yes Status: Chronic Qualifiers: Cardiomyopathy type: other Qualified Code(s): I42.8 - Other cardiomyopathies (7) CAD (coronary artery disease) Current Visit: Yes Status: Chronic Qualifiers: Coronary Disease-Associated Artery/Lesion type: [place] artery (8) COPD (chronic obstructive pulmonary disease) Current Visit: Yes Status: Chronic (9) Diabetes mellitus Current Visit: Yes Status: Chronic Subjective Date of service: 12/06/21 Principal diagnosis: Acute encephalopathy, Acute resp failure, Covid PNA, CMP, chronic HFrEF Interval history: Off telemetry because pt declined. Objective Vital Signs Temp Pulse Resp BP Pulse Ox 12/06/21 04:49 98.2 F 60 18 121/63 100 12/06/21 02:00 52 L 12/05/21 21:47 100 12/05/21 20:45 97.4 F L 56 L 18 135/75 100 12/05/21 20:03 96 12/05/21 11:15 97.5 F L 59 L 18 128/52 98 - Physical Examination General: No Apparent Distress, Other (AMS) HEENT: Positive: Normocephaly, Mucus Membranes Moist, Mucus Membranes Dry Neck: Positive: neck supple, trachea midline Cardiac: Positive: Reg Rate and Rhythm, S1/S2 Lungs: Positive: clear to auscultation Neuro: Positive: Other (Altered sensorium) Abdomen: Positive: Soft, Active Bowel Sounds Skin: Positive: Suspicious Lesions, Ulceration. Negative: Rash Musculoskeletal: Normal Range of Motion Extremities: Absent: edema - Labs and Meds Comprehensive Metabolic Panel 12/06/21 Range/Units 06:04 Sodium 157 H (137-145) mmol/L Potassium 3.5 L (3.6-5.0) mmol/L Chloride 118.8 H (98-107) mmol/L Carbon Dioxide 27 (22-30) mmol/L BUN 15 (9-20) mg/dL Creatinine 1.2 (0.8-1.3) mg/dL Glucose 103 H (75-100) mg/dL Calcium 7.9 L (8.4-10.2) mg/dL - EKG Sinus rhythms and dysrhythmias: sinus rhythm, sinus bradycardia
--- NOTE | 2021-12-06 10:52 | Progress Note ---
Assessment and Plan Assessment and plan: #Acute metabolic encephalopathyimproving -Etiology unknown. Unsure if secondary to COVID-19 pneumonia versus hypernatremia. -Baseline mentation is currently unknown. Neurology consulted; appreciate recs. Holding on chemical sedation unless absolutely necessary. Continue to monitor. #Acute hypoxic respiratory failure secondary to COVID-19resolved #COVID-19 pneumoniastable Patient weaned to room air Continue daily Decadron x10 days (end date 12/05/2021). Not a candidate for remdesivir. Pulmonary consulted; appreciate recs Infectious disease consulted; appreciate recs Continue weaning as tolerated Proning as tolerated #Insulin dependent type II diabetes mellitus - hemoglobin A1c: Pending - current regimen: NPH 10 units twice daily - blood glucose goal 140-180 while inpatient - continue to monitor #Hypertension Hydralazine 10 mg IV every 6 hours as needed. We will monitor the blood pressure closely # ROSANA (acute kidney injury) secondary to vasomotor nephropathyresolved Creatinine 1.3 (currently at baseline) Patient still has prerenal azotemia Nephrology consulted; appreciate recs Continue IV fluids per nephrology recommendations # Hypokalemia Repleted. Continue to monitor #Hypernatremiaimproving Sodium 164-->157-->154 Nephrology consulted; appreciate recs Continue D5W at 150 cc/hour Monitor electrolytes # Urinary tract infectionresolved Completed IV antibiotic therapy Urine cultures negative for bacteria and positive for Natalia Blood cultures-no growth #Constipation Continue stool softener #CAD #Cardiomyopathy #Chronic HFrEF Cardiology consulted; appreciate recs TTE revealing EF 35 to 40% Continue low-dose beta-tee #Bradycardia Heart rate in the low low 50s Likely secondary to beta-tee. Holding beta tee. #Hyperglycemia Continue insulin sliding scale coverage Blood glucose goal [id number] while inpatient. Continue to monitor #Severe debility Consulted physical therapy and Occupational Therapy; recommend subacute rehab #Advanced care planning -Disease education conducted, care plan discussed, diagnoses discussed, prognosis discussed, and patient acknowledges understanding with care plan -Time: +30 min #Discharge planning - Patient is pending resolution of hypernatremia. -Patient will likely require SNF placement. Case management has been made aware. Disposition Plan: Continue medical management Total Time Spent with Patient (Minutes): 45 minutes History Interval history: No acute events overnight. Hospitalist Physical - Constitutional Vitals: Temp Pulse Resp BP Pulse Ox 98.2 F 60 18 121/63 100 12/06/21 04:49 12/06/21 04:49 12/06/21 04:49 12/06/21 04:49 12/06/21 04:49 General appearance: Present: no acute distress, cachectic - EENT Eyes: Present: PERRL, EOM intact ENT: hearing intact, clear oral mucosa, poor dentition - Neck Neck: Present: supple, normal ROM - Respiratory Respiratory effort: normal Respiratory: bilateral: diminished - Cardiovascular Rhythm: regular Heart Sounds: Present: S1 & S2 - Extremities Extremities: no ischemia, pulses intact, pulses symmetrical, No edema, normal temperature, normal color, Full ROM Peripheral Pulses: within normal limits - Abdominal General gastrointestinal: soft, non-tender, non-distended, normal bowel sounds - Integumentary Integumentary: Present: clear, warm, dry - Psychiatric Psychiatric: appropriate mood/affect - Neurologic Neurologic: CNII-XII intact, other (Alert and oriented x2) - Allied Health Allied health notes reviewed: nursing Results - Labs CBC & Chem 7: 12/04/21 07:17 12/06/21 06:04 Labs: Laboratory Last Values WBC 5.5 K/mm3 (4.5-11.0) 12/04/21 07:17 RBC 3.52 M/mm3 (3.65-5.03) L 12/04/21 07:17 Hgb 10.4 gm/dl (11.8-15.2) L 12/04/21 07:17 Hct 33.6 % (35.5-45.6) L 12/04/21 07:17 MCV 95 fl (84-94) H 12/04/21 07:17 MCH 30 pg (28-32) 12/04/21 07:17 MCHC 31 % (32-34) L 12/04/21 07:17 RDW 15.7 % (13.2-15.2) H 12/04/21 07:17 Plt Count 284 K/mm3 (140-440) 12/04/21 07:17 Lymph % (Auto) 17.8 % (13.4-35.0) 12/04/21 07:17 [place] % (Auto) 14.7 % (0.0-7.3) H 12/04/21 07:17 Eos % (Auto) 0.6 % (0.0-4.3) 12/04/21 07:17 Baso % (Auto) 0.4 % (0.0-1.8) 12/04/21 07:17 Lymph # (Auto) 1.0 K/mm3 (1.2-5.4) L 12/04/21 07:17 [place] # (Auto) 0.8 K/mm3 (0.0-0.8) 12/04/21 07:17 Eos # (Auto) 0.0 K/mm3 (0.0-0.4) 12/04/21 07:17 Baso # (Auto) 0.0 K/mm3 (0.0-0.1) 12/04/21 07:17 Add Manual Diff Complete 11/21/21 19:36 Total Counted 100 11/21/21 19:36 Seg Neutrophils % 66.5 % (40.0-70.0) 12/04/21 07:17 Seg Neuts % (Manual) 79.0 % (40.0-70.0) H 11/21/21 19:36 Lymphocytes % (Manual) 10.0 % (13.4-35.0) L 11/21/21 19:36 Monocytes % (Manual) 8.0 % (0.0-7.3) H 11/21/21 19:36 Basophils % (Manual) 3.0 % (0.0-1.8) H 11/21/21 19:36 Nucleated RBC % Not Reportable 11/21/21 19:36 Seg Neutrophils # 3.6 K/mm3 (1.8-7.7) 12/04/21 07:17 Seg Neutrophils # Man 5.3 K/mm3 (1.8-7.7) 11/21/21 19:36 Band Neutrophils # 0.0 K/mm3 11/21/21 19:36 Lymphocytes # (Manual) 0.7 K/mm3 (1.2-5.4) L 11/21/21 19:36 Abs React Lymphs (Man) 0.0 K/mm3 11/21/21 19:36 Monocytes # (Manual) 0.5 K/mm3 (0.0-0.8) 11/21/21 19:36 Eosinophils # (Manual) 0.0 K/mm3 (0.0-0.4) 11/21/21 19:36 Basophils # (Manual) 0.2 K/mm3 (0.0-0.1) H 11/21/21 19:36 Metamyelocytes # 0.0 K/mm3 11/21/21 19:36 Myelocytes # 0.0 K/mm3 11/21/21 19:36 Promyelocytes # 0.0 K/mm3 11/21/21 19:36 Blast Cells # 0.0 K/mm3 11/21/21 19:36 WBC Morphology Not Reportable 11/21/21 19:36 Hypersegmented Neuts Not Reportable 11/21/21 19:36 Hyposegmented Neuts Not Reportable 11/21/21 19:36 Hypogranular Neuts Not Reportable 11/21/21 19:36 Smudge Cells Not Reportable 11/21/21 19:36 Toxic Granulation Not Reportable 11/21/21 19:36 Toxic Vacuolation Not Reportable 11/21/21 19:36 Dohle Bodies Not Reportable 11/21/21 19:36 Pelger-Huet Anomaly Not Reportable 11/21/21 19:36 Luan Rods Not Reportable 11/21/21 19:36 Platelet Estimate Consistent w auto 11/21/21 19:36 Clumped Platelets Not Reportable 11/21/21 19:36 Plt Clumps, EDTA Not Reportable 11/21/21 19:36 Large Platelets Not Reportable 11/21/21 19:36 Giant Platelets Not Reportable 11/21/21 19:36 Platelet Satelliting Not Reportable 11/21/21 19:36 Plt Morphology Comment Not Reportable 11/21/21 19:36 RBC Morphology Normal 11/21/21 19:36 Dimorphic RBCs Not Reportable 11/21/21 19:36 Polychromasia Not Reportable 11/21/21 19:36 Hypochromasia Not Reportable 11/21/21 19:36 Poikilocytosis Not Reportable 11/21/21 19:36 Anisocytosis Not Reportable 11/21/21 19:36 Microcytosis Not Reportable 11/21/21 19:36 Macrocytosis Not Reportable 11/21/21 19:36 Spherocytes Not Reportable 11/21/21 19:36 Pappenheimer Bodies Not Reportable 11/21/21 19:36 Sickle Cells Not Reportable 11/21/21 19:36 Target Cells Not Reportable 11/21/21 19:36 Tear Drop Cells Not Reportable 11/21/21 19:36 Ovalocytes Not Reportable 11/21/21 19:36 Helmet Cells Not Reportable 11/21/21 19:36 Christie-[place] Bodies Not Reportable 11/21/21 19:36 Ripton Rings Not Reportable 11/21/21 19:36 Star Cells Not Reportable 11/21/21 19:36 Bite Cells Not Reportable 11/21/21 19:36 Crenated Cell Not Reportable 11/21/21 19:36 Elliptocytes Not Reportable 11/21/21 19:36 Acanthocytes (Spur) Not Reportable 11/21/21 19:36 Rouleaux Not Reportable 11/21/21 19:36 Hemoglobin C Crystals Not Reportable 11/21/21 19:36 Schistocytes Not Reportable 11/21/21 19:36 Malaria parasites Not Reportable 11/21/21 19:36 Kalia Bodies Not Reportable 11/21/21 19:36 Hem Pathologist Commnt No 11/21/21 19:36 D-Dimer 1279.46 ng/mlDDU (0-234) H 11/26/21 16:44 Sodium 157 mmol/L (137-145) H 12/06/21 06:04 Potassium 3.5 mmol/L (3.6-5.0) L 12/06/21 06:04 Chloride 118.8 mmol/L (98-107) H 12/06/21 06:04 Carbon Dioxide 27 mmol/L (22-30) 12/06/21 06:04 Anion Gap 15 mmol/L 12/06/21 06:04 BUN 15 mg/dL (9-20) 12/06/21 06:04 Creatinine 1.2 mg/dL (0.8-1.3) 12/06/21 06:04 Estimated GFR > 60 ml/min 12/06/21 06:04 BUN/Creatinine Ratio 13 % 12/06/21 06:04 Glucose 103 mg/dL (75-100) H 12/06/21 06:04 POC Glucose 83 mg/dL (70-105) 12/06/21 07:27 Osmolality 316 Mosm/kg 11/27/21 Unknown Uric Acid 9.8 mg/dL (3.5-7.6) H 11/27/21 Unknown Calcium 7.9 mg/dL (8.4-10.2) L 12/06/21 06:04 Phosphorus 1.90 mg/dL (2.5-4.5) L 12/03/21 04:00 Magnesium 2.30 mg/dL (1.7-2.3) 12/03/21 04:00 Total Bilirubin 0.40 mg/dL (0.1-1.2) 11/28/21 06:47 AST 22 units/L (5-40) 11/28/21 06:47 ALT 28 units/L (7-56) 11/28/21 06:47 Alkaline Phosphatase 197 units/L (35-129) H 11/28/21 06:47 Ammonia 12.0 umol/L (25-60) L 11/28/21 12:59 C-Reactive Protein 13.00 mg/dL (0.00-1.30) H 11/27/21 05:17 Total Protein 5.6 g/dL (6.3-8.2) L 11/28/21 06:47 Albumin 2.5 g/dL (3.9-5) L 11/28/21 06:47 Albumin/Globulin Ratio 0.8 % 11/28/21 06:47 Procalcitonin 3.10 ng/mL (<0.15) 11/26/21 08:21 TSH 4.800 mlU/mL (0.270-4.200) H 11/21/21 19:37 Urine Color Kimberli (Yellow) 11/27/21 Unknown Urine Turbidity Slightly-cloudy (Clear) 11/27/21 Unknown Urine pH 5.0 (5.0-7.0) 11/27/21 Unknown Ur Specific [place] 1.013 (1.003-1.030) 11/27/21 Unknown Urine Protein <15 mg/dl mg/dL (Negative) 11/27/21 Unknown Urine Glucose (UA) 50 mg/dL (Negative) 11/27/21 Unknown Urine Ketones Tr mg/dL (Negative) 11/27/21 Unknown Urine Blood Neg (Negative) 11/27/21 Unknown Urine Nitrite Neg (Negative) 11/27/21 Unknown Urine Bilirubin Neg (Negative) 11/27/21 Unknown Urine Urobilinogen < 2.0 mg/dL (<2.0) 11/27/21 Unknown Ur Leukocyte Esterase Neg (Negative) 11/27/21 Unknown Urine WBC (Auto) 13.0 /HPF (0.0-6.0) H 11/27/21 Unknown Urine RBC (Auto) 2.0 /HPF (0.0-6.0) 11/27/21 Unknown U Epithel Cells (Auto) 1.0 /HPF (0-13.0) 11/27/21 Unknown Urine Bacteria (Auto) 1+ /HPF (Negative) 11/27/21 Unknown Urine Mucus Few /HPF 11/27/21 Unknown Urine Yeast (Budding) 2+ /HPF 11/27/21 Unknown Urine Creatinine 80.9 mg/dL (0.1-20.0) H 11/27/21 Unknown Urine Sodium 36 mmol/L 11/27/21 Unknown Urine Total Protein 43 mg/dL (5-11.8) H 11/27/21 Unknown Coronavirus (PCR) Positive (Negative) A 11/23/21 Unknown Fritz/IV: Voiding Method Incontinent Active Medications - Current Medications Current Medications: Generic Name Dose Route Start Last Admin Trade Name Freq PRN Reason Stop Dose Admin Acetaminophen 650 mg 11/22/21 05:48 Acetaminophen 325 Mg Tab PO Q4H PRN Pain MILD(1-3)/Fever >100.5/BRODY Albuterol 2.5 mg 11/25/21 12:00 Albuterol 2.5 Mg/3 Ml Nebu IH Q4HRT PRN Shortness Of Breath Dextrose 50 ml 12/02/21 15:42 Dextrose 50% In Water (25gm) 50 Ml Syringe IV Q30MIN PRN Hypoglycemia Protocol Docusate Sodium 100 mg 11/25/21 22:00 12/05/21 22:16 Docusate Sodium 100 Mg Cap PO 100 mg BID NANDINI Administration Enoxaparin Sodium 70 mg 11/26/21 12:30 12/05/21 22:16 Enoxaparin 80 Mg/0.8 Ml Inj SUB-Q 70 mg Q12HR NANDINI Administration Hydromorphone HCl 0.5 mg 11/22/21 05:48 11/23/21 06:02 Hydromorphone 1 Mg/1 Ml Inj IV 0.5 mg Q3H PRN Administration Pain , Severe (7-10) Dextrose 1,000 mls @ 150 mls/hr 12/02/21 08:00 12/05/21 12:17 D5w IV 125 mls/hr DIRECT NANDINI Administration Insulin Human Isoph/Insulin Regular 10 unit 12/02/21 17:00 12/05/21 07:30 Insulin Nph/Regular 70/30 Inj SUB-Q Not Given BIDDIAB NANDINI Insulin Human Lispro 0 unit 11/22/21 07:30 12/05/21 22:27 Insulin Lispro 100 Unit/Ml SUB-Q Not Given ACHS [facility] Protocol Morphine Sulfate 2 mg 11/22/21 05:48 12/03/21 21:38 Morphine 2 Mg/1 Ml Inj IV 2 mg Q4H PRN Administration Pain, Moderate (4-6) Ondansetron HCl 4 mg 11/22/21 05:48 12/03/21 21:38 Ondansetron 4 Mg/2 Ml Inj IV 4 mg Q8H PRN Administration Nausea And Vomiting Sodium Chloride 10 ml 11/22/21 10:00 12/05/21 22:16 Sodium Chloride 0.9% 10 Ml Flush Syringe IV 10 ml BID NANDINI Administration Sodium Chloride 10 ml 11/22/21 05:48 Sodium Chloride 0.9% 10 Ml Flush Syringe IV PRN PRN LINE FLUSH Nutrition/Malnutrition Assess - Dietary Evaluation Nutrition/Malnutrition Findings: Nutrition Notes Start: 11/22/21 14:16 Freq: Status: Active Protocol: Document 12/04/21 16:40 NICKO (Rec: 12/04/21 16:51 NICKO [email or web address]) Nutrition Notes Initial or Follow up Brief Note Current Diet Cardiac Consistent Carbohydrates Diet (since B ). Height 5 ft 11 in Weight 68.8 kg [place] Body Weight (kg) 78.18 BMI 21.1 Weight change and time frame No body weight change reported . Weight Status Underweight Subjective/Other Information RD consult for routine F/U on %PO intake of meals and ONS. Pt's PO intake of meals and ONS has been neglible (0%), according to ADL notes. MD requested to d/c ONS. Percent of energy/protein needs met: Prescribed Cardiac/Consistent Carbohydrates Diet provides for energy/protein needs (1, 977 Kcal/86 g) during LOS Current % PO Negligible #1 Nutrition Diagnosis Underweight Comments: Pt's PO intake of meals and ONS has been neglible (0%), according to ADL notes. MD requested to d/c ONS. Diagnosis Progress(for reassessment Worsened documentation) Nutrition Intervention Change Diet Order: Continue Cardiac Consistent Carbohydrates Diet. Add Supplement/Snack (indicate name/kcal d/c /protein ) Follow-Up By: 12/08/21 Additional Comments Continue monitoring food tolerance, %PO intake of meals , and BM.
[2021-12-06] MEDS: DOCUSATE SODIUM 100 MG CAP PO SCH ×2 (21:45→22:21)
[2021-12-06] MEDS: ENOXAPARIN 80 MG/0.8 ML INJ SUB-Q SCH (22:21)
[2021-12-06] MEDS: INSULIN LISPRO 100 UNIT/ML SUB-Q SCH (22:50)
[2021-12-07 07:00] LABS: BUN/Creatinine Ratio 11; Blood Urea Nitrogen 14 mg/dL (9-20); Calcium 8.2 mg/dL (8.4-10.2); Hemolysis Index 11
[2021-12-07] MEDS: INSULIN LISPRO 100 UNIT/ML SUB-Q SCH ×4 (08:38→22:02)
[2021-12-07] MEDS ORDERED: POTASSIUM CHLORIDE ER 20 MEQ TAB PO ONE (08:58)
[2021-12-07] MEDS: POTASSIUM CHLORIDE ER 20 MEQ TAB PO SCH ×3 (09:23→15:45)
[2021-12-07] MEDS: ENOXAPARIN 80 MG/0.8 ML INJ SUB-Q SCH ×2 (09:24→22:03)
[2021-12-07] MEDS: DOCUSATE SODIUM 100 MG CAP PO SCH ×2 (09:24→22:03)
--- NOTE | 2021-12-07 09:49 | Progress Note ---
Assessment and Plan Assessment and plan: #Acute metabolic encephalopathyimproving -Etiology unknown. Unsure if secondary to COVID-19 pneumonia versus hypernatremia. -Baseline mentation is currently unknown. Neurology consulted; appreciate recs. Holding on chemical sedation unless absolutely necessary. Continue to monitor. #Acute hypoxic respiratory failure secondary to COVID-19resolved #COVID-19 pneumoniastable Patient weaned to room air Continue daily Decadron x10 days (end date 12/05/2021). Not a candidate for remdesivir. Pulmonary consulted; appreciate recs Infectious disease consulted; appreciate recs Continue weaning as tolerated Proning as tolerated #Insulin dependent type II diabetes mellitus - hemoglobin A1c: Pending - current regimen: NPH 10 units twice daily - blood glucose goal 140-180 while inpatient - continue to monitor #Hypertension Hydralazine 10 mg IV every 6 hours as needed. We will monitor the blood pressure closely # ROSANA (acute kidney injury) secondary to vasomotor nephropathyresolved Creatinine 1.3 (currently at baseline) Patient still has prerenal azotemia Nephrology consulted; appreciate recs Continue IV fluids per nephrology recommendations # Hypokalemia Repleted. Continue to monitor #Hypernatremia Sodium 164-->157-->154 Lengthy search revealed that the patient had not been receiving IV fluid resuscitation for unknown reason (despite being on the MAR). Detailed discussion with the nurse to start administer 1 L NS bolus at 500 cc/hour followed by D5W at 150 cc/hour. Nurse expressed understanding. Monitor electrolytes # Urinary tract infectionresolved Completed IV antibiotic therapy Urine cultures negative for bacteria and positive for Natalia Blood cultures-no growth #Constipation Continue stool softener #CAD #Cardiomyopathy #Chronic HFrEF Cardiology consulted; appreciate recs TTE revealing EF 35 to 40% Continue low-dose beta-tee #Bradycardia Heart rate in the low low 50s Likely secondary to beta-tee. Holding beta tee. #Hyperglycemia Continue insulin sliding scale coverage Blood glucose goal [id number] while inpatient. Continue to monitor #Severe debility Consulted physical therapy and Occupational Therapy; recommend subacute rehab #Advanced care planning -Disease education conducted, care plan discussed, diagnoses discussed, prognosis discussed, and patient acknowledges understanding with care plan -Time: +30 min #Discharge planning - Patient is pending resolution of hypernatremia. -Patient will likely require SNF placement. Case management has been made aware. Disposition Plan: Continue medical management Total Time Spent with Patient (Minutes): 45 minutes History Interval history: No acute events overnight. Hospitalist Physical - Constitutional Vitals: Temp Pulse Resp BP Pulse Ox 98.0 F 70 20 139/69 92 12/06/21 21:11 12/07/21 02:00 12/06/21 21:11 12/06/21 21:11 12/06/21 22:00 General appearance: Present: no acute distress, cachectic - EENT Eyes: Present: PERRL, EOM intact ENT: hearing intact, clear oral mucosa - Neck Neck: Present: supple, normal ROM - Respiratory Respiratory effort: normal Respiratory: bilateral: diminished - Cardiovascular Rhythm: regular Heart Sounds: Present: S1 & S2 - Extremities Extremities: no ischemia, pulses intact, pulses symmetrical, No edema, normal temperature, normal color, Full ROM Peripheral Pulses: within normal limits - Abdominal General gastrointestinal: soft, non-tender, non-distended, normal bowel sounds - Integumentary Integumentary: Present: clear, warm, dry - Psychiatric Psychiatric: other (Uncooperative) - Neurologic Neurologic: CNII-XII intact, moves all extremities, other (Alert and oriented x2) - Allied Health Allied health notes reviewed: nursing Results - Labs CBC & Chem 7: 12/04/21 07:17 12/07/21 05:36 Labs: Laboratory Last Values WBC 5.5 K/mm3 (4.5-11.0) 12/04/21 07:17 RBC 3.52 M/mm3 (3.65-5.03) L 12/04/21 07:17 Hgb 10.4 gm/dl (11.8-15.2) L 12/04/21 07:17 Hct 33.6 % (35.5-45.6) L 12/04/21 07:17 MCV 95 fl (84-94) H 12/04/21 07:17 MCH 30 pg (28-32) 12/04/21 07:17 MCHC 31 % (32-34) L 12/04/21 07:17 RDW 15.7 % (13.2-15.2) H 12/04/21 07:17 Plt Count 284 K/mm3 (140-440) 12/04/21 07:17 Lymph % (Auto) 17.8 % (13.4-35.0) 12/04/21 07:17 [place] % (Auto) 14.7 % (0.0-7.3) H 12/04/21 07:17 Eos % (Auto) 0.6 % (0.0-4.3) 12/04/21 07:17 Baso % (Auto) 0.4 % (0.0-1.8) 12/04/21 07:17 Lymph # (Auto) 1.0 K/mm3 (1.2-5.4) L 12/04/21 07:17 [place] # (Auto) 0.8 K/mm3 (0.0-0.8) 12/04/21 07:17 Eos # (Auto) 0.0 K/mm3 (0.0-0.4) 12/04/21 07:17 Baso # (Auto) 0.0 K/mm3 (0.0-0.1) 12/04/21 07:17 Add Manual Diff Complete 11/21/21 19:36 Total Counted 100 11/21/21 19:36 Seg Neutrophils % 66.5 % (40.0-70.0) 12/04/21 07:17 Seg Neuts % (Manual) 79.0 % (40.0-70.0) H 11/21/21 19:36 Lymphocytes % (Manual) 10.0 % (13.4-35.0) L 11/21/21 19:36 Monocytes % (Manual) 8.0 % (0.0-7.3) H 11/21/21 19:36 Basophils % (Manual) 3.0 % (0.0-1.8) H 11/21/21 19:36 Nucleated RBC % Not Reportable 11/21/21 19:36 Seg Neutrophils # 3.6 K/mm3 (1.8-7.7) 12/04/21 07:17 Seg Neutrophils # Man 5.3 K/mm3 (1.8-7.7) 11/21/21 19:36 Band Neutrophils # 0.0 K/mm3 11/21/21 19:36 Lymphocytes # (Manual) 0.7 K/mm3 (1.2-5.4) L 11/21/21 19:36 Abs React Lymphs (Man) 0.0 K/mm3 11/21/21 19:36 Monocytes # (Manual) 0.5 K/mm3 (0.0-0.8) 11/21/21 19:36 Eosinophils # (Manual) 0.0 K/mm3 (0.0-0.4) 11/21/21 19:36 Basophils # (Manual) 0.2 K/mm3 (0.0-0.1) H 11/21/21 19:36 Metamyelocytes # 0.0 K/mm3 11/21/21 19:36 Myelocytes # 0.0 K/mm3 11/21/21 19:36 Promyelocytes # 0.0 K/mm3 11/21/21 19:36 Blast Cells # 0.0 K/mm3 11/21/21 19:36 WBC Morphology Not Reportable 11/21/21 19:36 Hypersegmented Neuts Not Reportable 11/21/21 19:36 Hyposegmented Neuts Not Reportable 11/21/21 19:36 Hypogranular Neuts Not Reportable 11/21/21 19:36 Smudge Cells Not Reportable 11/21/21 19:36 Toxic Granulation Not Reportable 11/21/21 19:36 Toxic Vacuolation Not Reportable 11/21/21 19:36 Dohle Bodies Not Reportable 11/21/21 19:36 Pelger-Huet Anomaly Not Reportable 11/21/21 19:36 Luan Rods Not Reportable 11/21/21 19:36 Platelet Estimate Consistent w auto 11/21/21 19:36 Clumped Platelets Not Reportable 11/21/21 19:36 Plt Clumps, EDTA Not Reportable 11/21/21 19:36 Large Platelets Not Reportable 11/21/21 19:36 Giant Platelets Not Reportable 11/21/21 19:36 Platelet Satelliting Not Reportable 11/21/21 19:36 Plt Morphology Comment Not Reportable 11/21/21 19:36 RBC Morphology Normal 11/21/21 19:36 Dimorphic RBCs Not Reportable 11/21/21 19:36 Polychromasia Not Reportable 11/21/21 19:36 Hypochromasia Not Reportable 11/21/21 19:36 Poikilocytosis Not Reportable 11/21/21 19:36 Anisocytosis Not Reportable 11/21/21 19:36 Microcytosis Not Reportable 11/21/21 19:36 Macrocytosis Not Reportable 11/21/21 19:36 Spherocytes Not Reportable 11/21/21 19:36 Pappenheimer Bodies Not Reportable 11/21/21 19:36 Sickle Cells Not Reportable 11/21/21 19:36 Target Cells Not Reportable 11/21/21 19:36 Tear Drop Cells Not Reportable 11/21/21 19:36 Ovalocytes Not Reportable 11/21/21 19:36 Helmet Cells Not Reportable 11/21/21 19:36 Christie-Scobey Bodies Not Reportable 11/21/21 19:36 [place] Rings Not Reportable 11/21/21 19:36 Star Cells Not Reportable 11/21/21 19:36 Bite Cells Not Reportable 11/21/21 19:36 Crenated Cell Not Reportable 11/21/21 19:36 Elliptocytes Not Reportable 11/21/21 19:36 Acanthocytes (Spur) Not Reportable 11/21/21 19:36 Rouleaux Not Reportable 11/21/21 19:36 Hemoglobin C Crystals Not Reportable 11/21/21 19:36 Schistocytes Not Reportable 11/21/21 19:36 Malaria parasites Not Reportable 11/21/21 19:36 Kalia Bodies Not Reportable 11/21/21 19:36 Hem Pathologist Commnt No 11/21/21 19:36 D-Dimer 1279.46 ng/mlDDU (0-234) H 11/26/21 16:44 Sodium 155 mmol/L (137-145) H 12/07/21 05:36 Potassium 3.2 mmol/L (3.6-5.0) L 12/07/21 05:36 Chloride 118.5 mmol/L (98-107) H 12/07/21 05:36 Carbon Dioxide 26 mmol/L (22-30) 12/07/21 05:36 Anion Gap 14 mmol/L 12/07/21 05:36 BUN 14 mg/dL (9-20) 12/07/21 05:36 Creatinine 1.3 mg/dL (0.8-1.3) 12/07/21 05:36 Estimated GFR > 60 ml/min 12/07/21 05:36 BUN/Creatinine Ratio 11 % 12/07/21 05:36 Glucose 98 mg/dL (75-100) 12/07/21 05:36 POC Glucose 92 mg/dL (70-105) 12/07/21 07:28 Osmolality 316 Mosm/kg 11/27/21 Unknown Uric Acid 9.8 mg/dL (3.5-7.6) H 11/27/21 Unknown Calcium 8.2 mg/dL (8.4-10.2) L 12/07/21 05:36 Phosphorus 1.90 mg/dL (2.5-4.5) L 12/03/21 04:00 Magnesium 2.30 mg/dL (1.7-2.3) 12/03/21 04:00 Total Bilirubin 0.40 mg/dL (0.1-1.2) 11/28/21 06:47 AST 22 units/L (5-40) 11/28/21 06:47 ALT 28 units/L (7-56) 11/28/21 06:47 Alkaline Phosphatase 197 units/L (35-129) H 11/28/21 06:47 Ammonia 12.0 umol/L (25-60) L 11/28/21 12:59 C-Reactive Protein 13.00 mg/dL (0.00-1.30) H 11/27/21 05:17 Total Protein 5.6 g/dL (6.3-8.2) L 11/28/21 06:47 Albumin 2.5 g/dL (3.9-5) L 11/28/21 06:47 Albumin/Globulin Ratio 0.8 % 11/28/21 06:47 Procalcitonin 3.10 ng/mL (<0.15) 11/26/21 08:21 TSH 4.800 mlU/mL (0.270-4.200) H 11/21/21 19:37 Urine Color [place] (Yellow) 11/27/21 Unknown Urine Turbidity Slightly-cloudy (Clear) 11/27/21 Unknown Urine pH 5.0 (5.0-7.0) 11/27/21 Unknown Ur Specific [place] 1.013 (1.003-1.030) 11/27/21 Unknown Urine Protein <15 mg/dl mg/dL (Negative) 11/27/21 Unknown Urine Glucose (UA) 50 mg/dL (Negative) 11/27/21 Unknown Urine Ketones Tr mg/dL (Negative) 11/27/21 Unknown Urine Blood Neg (Negative) 11/27/21 Unknown Urine Nitrite Neg (Negative) 11/27/21 Unknown Urine Bilirubin Neg (Negative) 11/27/21 Unknown Urine Urobilinogen < 2.0 mg/dL (<2.0) 11/27/21 Unknown Ur Leukocyte Esterase Neg (Negative) 11/27/21 Unknown Urine WBC (Auto) 13.0 /HPF (0.0-6.0) H 11/27/21 Unknown Urine RBC (Auto) 2.0 /HPF (0.0-6.0) 11/27/21 Unknown U Epithel Cells (Auto) 1.0 /HPF (0-13.0) 11/27/21 Unknown Urine Bacteria (Auto) 1+ /HPF (Negative) 11/27/21 Unknown Urine Mucus Few /HPF 11/27/21 Unknown Urine Yeast (Budding) 2+ /HPF 11/27/21 Unknown Urine Creatinine 80.9 mg/dL (0.1-20.0) H 11/27/21 Unknown Urine Sodium 36 mmol/L 11/27/21 Unknown Urine Total Protein 43 mg/dL (5-11.8) H 11/27/21 Unknown Coronavirus (PCR) Positive (Negative) A 11/23/21 Unknown Fritz/IV: Voiding Method Incontinent Active Medications - Current Medications Current Medications: Generic Name Dose Route Start Last Admin Trade Name Freq PRN Reason Stop Dose Admin Acetaminophen 650 mg 11/22/21 05:48 Acetaminophen 325 Mg Tab PO Q4H PRN Pain MILD(1-3)/Fever >100.5/BRODY Albuterol 2.5 mg 11/25/21 12:00 Albuterol 2.5 Mg/3 Ml Nebu IH Q4HRT PRN Shortness Of Breath Dextrose 50 ml 12/02/21 15:42 Dextrose 50% In Water (25gm) 50 Ml Syringe IV Q30MIN PRN Hypoglycemia Protocol Docusate Sodium 100 mg 11/25/21 22:00 12/07/21 09:24 Docusate Sodium 100 Mg Cap PO 100 mg BID NANDINI Administration Enoxaparin Sodium 70 mg 11/26/21 12:30 12/07/21 09:24 Enoxaparin 80 Mg/0.8 Ml Inj SUB-Q 70 mg Q12HR NANDINI Administration Hydromorphone HCl 0.5 mg 11/22/21 05:48 11/23/21 06:02 Hydromorphone 1 Mg/1 Ml Inj IV 0.5 mg Q3H PRN Administration Pain , Severe (7-10) Potassium Chloride 10 meq in 100 mls @ 100 mls/hr 12/07/21 10:00 Kcl 10meq/100ml IV 12/07/21 13:59 Q1H NANDINI Sodium Chloride 1,000 mls @ 500 mls/hr 12/07/21 10:00 Nacl 0.9% 1000 Ml IV 12/07/21 11:59 BOLUS ONE Dextrose 1,000 mls @ 150 mls/hr 12/07/21 10:00 D5w IV DIRECT [facility] Insulin Human Lispro 0 unit 11/22/21 07:30 12/07/21 08:38 Insulin Lispro 100 Unit/Ml SUB-Q Not Given ACHS [facility] Protocol Morphine Sulfate 2 mg 11/22/21 05:48 12/03/21 21:38 Morphine 2 Mg/1 Ml Inj IV 2 mg Q4H PRN Administration Pain, Moderate (4-6) Ondansetron HCl 4 mg 11/22/21 05:48 12/03/21 21:38 Ondansetron 4 Mg/2 Ml Inj IV 4 mg Q8H PRN Administration Nausea And Vomiting Potassium Chloride 40 meq 12/07/21 09:00 12/07/21 09:23 Potassium Chloride Er 20 Meq Tab PO 12/07/21 15:01 40 meq Q3H NANDINI Administration Sodium Chloride 10 ml 11/22/21 10:00 12/07/21 09:24 Sodium Chloride 0.9% 10 Ml Flush Syringe IV 10 ml BID NANDINI Administration Sodium Chloride 10 ml 11/22/21 05:48 Sodium Chloride 0.9% 10 Ml Flush Syringe IV PRN PRN LINE FLUSH Nutrition/Malnutrition Assess - Dietary Evaluation Nutrition/Malnutrition Findings: Nutrition Notes Start: 11/22/21 14:16 Freq: Status: Active Protocol: Document 12/04/21 16:40 NICKO (Rec: 12/04/21 16:51 NICKO [id number]) Nutrition Notes Initial or Follow up Brief Note Current Diet Cardiac Consistent Carbohydrates Diet (since B ). Height 5 ft 11 in Weight 68.8 kg [place] Body Weight (kg) 78.18 BMI 21.1 Weight change and time frame No body weight change reported . Weight Status Underweight Subjective/Other Information RD consult for routine F/U on %PO intake of meals and ONS. Pt's PO intake of meals and ONS has been neglible (0%), according to ADL notes. MD requested to d/c ONS. Percent of energy/protein needs met: Prescribed Cardiac/Consistent Carbohydrates Diet provides for energy/protein needs (1, 977 Kcal/86 g) during LOS Current % PO Negligible #1 Nutrition Diagnosis Underweight Comments: Pt's PO intake of meals and ONS has been neglible (0%), according to ADL notes. MD requested to d/c ONS. Diagnosis Progress(for reassessment Worsened documentation) Nutrition Intervention Change Diet Order: Continue Cardiac Consistent Carbohydrates Diet. Add Supplement/Snack (indicate name/kcal d/c /protein ) Follow-Up By: 12/08/21 Additional Comments Continue monitoring food tolerance, %PO intake of meals , and BM.
[2021-12-07] MEDS ORDERED: SODIUM CHLORIDE 0.9% 1000 ML 1,000 ML IV ONE (10:00)
[2021-12-07] MEDS ORDERED: DEXTROSE 5% IN WATER 1,000 ML IV SCH (10:00)
[2021-12-07] MEDS ORDERED: MAGNESIUM SULFATE 2 GM/50 ML BAG IV ONE (10:49)
[2021-12-07] MEDS ORDERED: DEXTROSE 5% IN WATER 1,000 ML with POTASSIUM CHLORIDE 20 MEQ IV SCH (10:50)
--- NOTE | 2021-12-07 10:53 | Progress Note ---
Subjective Date of service: 12/07/21 Principal diagnosis: Acute encephalopathy, Acute resp failure, Covid PNA, CMP, chronic HFrEF Interval history: mpression * Nonoliguric acute kidney injury secondary to prerenal azotemia (FeNa 0.5%) --Baseline SCr 1.3mg/dL * Acute hypoxic respiratory failure secondary to COVID 19 PNA * Severe COVID-19 pneumonia * Hypernatremia * Hypokalemia * Acute encephalopathy * Cardiomyopathy - EF 35% * Anemia * Urinary tract infection - Klebsiella pneumonia * Mild left hydronephrosis Recommendations * Renal function now at baseline * Na is elevated today, continue d5w and add kcl * follow up mag levels and replete prn * pulm note reviewed, avoid over diuresis with hypernatremia * Continue to hold MIREYA inhibitor/ARB at this time * Encourage free water intake * Management of COVID-19 PNA per ID and primary team * Abx per ID * Maintain MAP >65 * Avoid potential nephrotoxins * Monitor lytes, fluid balance closely * Strict I/O Subjective Principal diagnosis: Acute encephalopathy Interval history: Patient has no complaints. No acute events overnight Objective - General Appearance exam deferred, primary team exam noted Objective - Vital Signs Vital signs: Vital Signs - 12hr 12/07/21 02:00 Pulse Rate 70 - Lab 12/04/21 07:17 12/07/21 05:36 Most recent lab results Calcium 8.2 mg/dL (8.4-10.2) L 12/07/21 05:36 Phosphorus 1.90 mg/dL (2.5-4.5) L 12/03/21 04:00 Magnesium 2.30 mg/dL (1.7-2.3) 12/03/21 04:00 Urine Creatinine 80.9 mg/dL (0.1-20.0) H 11/27/21 Unknown Urine Sodium 36 mmol/L 11/27/21 Unknown Urine Total Protein 43 mg/dL (5-11.8) H 11/27/21 Unknown Medications & Allergies - Medications Allergies/Adverse Reactions: Allergies No Known Allergies Allergy (Verified 11/22/21 05:55) Home Medications: Home Medications Medication Instructions Recorded Confirmed Last Taken Type Furosemide [Lasix TAB] 80 mg PO TID 11/24/21 11/24/21 Unknown History Gabapentin [Neurontin] 300 mg PO BID 11/24/21 11/27/2111/19/21 09:12 History 300 mg Sacubitril/Valsartan [Entresto 1 tab PO BID 11/24/21 11/27/21 11/19/21 09:12 History 49-51 mg] 1 tab Spironolactone [Aldactone] 25 mg PO QDAY 11/24/21 11/27/21 11/19/21 09:12 History 25 mg Tamsulosin [Flomax] 0.4 mg PO QDAY 11/24/21 11/27/21 11/18/21 22:02 History 0.4 mg carvediloL [Coreg] 6.25 mg PO BID 11/24/21 11/27/21 11/19/21 09:12 History 6.25mg AtorvaSTATin [Lipitor] 40 mg PO QHS 11/27/21 11/27/21 11/19/21 09:12 History 40 mg Insulin Glargine,Hum.rec.anlog 12 unit SQ QHS 11/27/21 11/27/21 11/18/21 22:02 History [Lantus Solostar] 12 units Insulin Lispro [Admelog] 1 - 12 unit SQ TIDAC 11/27/21 11/27/21 11/19/21 08:32 History 6 units Insulin Lispro [Admelog] 4 unit SQ TID 11/27/21 11/27/21 11/19/21 08:33 History 4 units oxyCODONE /ACETAMINOPHEN [Percocet 1 tab PO Q6HR PRN 11/27/21 11/27/21 11/19/21 03:57 History 5/325] 1 tab Active Medications: Generic Name Dose Route Start Last Admin Trade Name Freq PRN Reason Stop Dose Admin Acetaminophen 650 mg 11/22/21 05:48 Acetaminophen 325 Mg Tab PO Q4H PRN Pain MILD(1-3)/Fever >100.5/BRODY Albuterol 2.5 mg 11/25/21 12:00 Albuterol 2.5 Mg/3 Ml Nebu IH Q4HRT PRN Shortness Of Breath Dextrose 50 ml 12/02/21 15:42 Dextrose 50% In Water (25gm) 50 Ml Syringe IV Q30MIN PRN Hypoglycemia Protocol Docusate Sodium 100 mg 11/25/21 22:00 12/07/21 09:24 Docusate Sodium 100 Mg Cap PO 100 mg BID NANDINI Administration Enoxaparin Sodium 70 mg 11/26/21 12:30 12/07/21 09:24 Enoxaparin 80 Mg/0.8 Ml Inj SUB-Q 70 mg Q12HR NANDINI Administration Hydromorphone HCl 0.5 mg 11/22/21 05:48 11/23/21 06:02 Hydromorphone 1 Mg/1 Ml Inj IV 0.5 mg Q3H PRN Administration Pain , Severe (7-10) Potassium Chloride 10 meq in 100 mls @ 100 mls/hr 12/07/21 10:00 Kcl 10meq/100ml IV 12/07/21 13:59 Q1H NANDINI Sodium Chloride 1,000 mls @ 500 mls/hr 12/07/21 10:00 Nacl 0.9% 1000 Ml IV 12/07/21 11:59 BOLUS ONE Potassium Chloride 20 meq/ 1,010 mls @ 150 mls/hr 12/07/21 10:50 Dextrose IV DIRECT [facility] Magnesium Sulfate 2 gm in 50 mls @ 25 mls/hr 12/07/21 10:49 Magnesium Sulfate 2gm/50ml IV 12/07/21 12:48 ONCE ONE Insulin Human Lispro 0 unit 11/22/21 07:30 12/07/21 08:38 Insulin Lispro 100 Unit/Ml SUB-Q Not Given ACHS [facility] Protocol Morphine Sulfate 2 mg 11/22/21 05:48 12/03/21 21:38 Morphine 2 Mg/1 Ml Inj IV 2 mg Q4H PRN Administration Pain, Moderate (4-6) Ondansetron HCl 4 mg 11/22/21 05:48 12/03/21 21:38 Ondansetron 4 Mg/2 Ml Inj IV 4 mg Q8H PRN Administration Nausea And Vomiting Potassium Chloride 40 meq 12/07/21 09:00 12/07/21 09:23 Potassium Chloride Er 20 Meq Tab PO 12/07/21 15:01 40 meq Q3H NANDINI Administration Sodium Chloride 10 ml 11/22/21 10:00 12/07/21 09:24 Sodium Chloride 0.9% 10 Ml Flush Syringe IV 10 ml BID NANDINI Administration Sodium Chloride 10 ml 11/22/21 05:48 Sodium Chloride 0.9% 10 Ml Flush Syringe IV PRN PRN LINE FLUSH
[2021-12-07] MEDS: POTASSIUM CHLORIDE 10 MEQ 10 MEQ/100 ML BAG IV SCH ×4 (11:25→15:46)
--- NOTE | 2021-12-07 12:39 | Progress Note ---
Assessment and Plan Free water and potassium supplementation. - Patient Problems (1) Acute respiratory failure with hypoxia Current Visit: Yes Status: Acute (2) Acute metabolic encephalopathy Current Visit: Yes Status: Acute (3) Pneumonia due to COVID-19 virus Current Visit: Yes Status: Acute (4) ROSANA (acute kidney injury) Current Visit: Yes Status: Acute (5) Chronic HFrEF (heart failure with reduced ejection fraction) Current Visit: Yes Status: Chronic (6) Cardiomyopathy Current Visit: Yes Status: Chronic Qualifiers: Cardiomyopathy type: other Qualified Code(s): I42.8 - Other cardiomyopathies (7) CAD (coronary artery disease) Current Visit: Yes Status: Chronic Qualifiers: Coronary Disease-Associated Artery/Lesion type: [place] artery (8) COPD (chronic obstructive pulmonary disease) Current Visit: Yes Status: Chronic (9) Diabetes mellitus Current Visit: Yes Status: Chronic Subjective Date of service: 12/07/21 Principal diagnosis: Acute encephalopathy, Acute resp failure, Covid PNA, CMP, chronic HFrEF Interval history: No new events overnight. Objective Vital Signs Temp Pulse Resp BP BP Pulse Ox 12/07/21 12:18 98.6 F 85 24 135/75 97 12/07/21 12:16 98.6 F 24 135/75 12/07/21 11:16 100 12/07/21 02:00 70 12/06/21 22:00 92 12/06/21 21:11 98.0 F 70 20 139/69 96 12/06/21 20:27 20 57/20 12/06/21 16:53 98.0 F 59 L 24 104/47 90 - Physical Examination General: No Apparent Distress, Other (AMS) HEENT: Positive: Normocephaly, Mucus Membranes Moist, Mucus Membranes Dry Neck: Positive: neck supple, trachea midline Cardiac: Positive: Reg Rate and Rhythm Lungs: Positive: clear to auscultation Neuro: Positive: Other (Altered sensorium) Abdomen: Positive: Soft, Active Bowel Sounds Skin: Positive: Suspicious Lesions, Ulceration. Negative: Rash Musculoskeletal: Normal Range of Motion Extremities: Absent: edema - Labs and Meds Comprehensive Metabolic Panel 12/07/21 Range/Units 05:36 Sodium 155 H (137-145) mmol/L Potassium 3.2 L (3.6-5.0) mmol/L Chloride 118.5 H (98-107) mmol/L Carbon Dioxide 26 (22-30) mmol/L BUN 14 (9-20) mg/dL Creatinine 1.3 (0.8-1.3) mg/dL Glucose 98 (75-100) mg/dL Calcium 8.2 L (8.4-10.2) mg/dL - EKG Sinus rhythms and dysrhythmias: sinus rhythm, sinus bradycardia
[2021-12-07] MEDS: HALOPERIDOL LACTATE 5 MG/1 ML INJ IM PRN (15:44)
[2021-12-08] MEDS: INSULIN LISPRO 100 UNIT/ML SUB-Q SCH ×4 (07:30→22:00)
--- NOTE | 2021-12-08 08:09 | Progress Note ---
Assessment and Plan Assessment and plan: #Acute metabolic encephalopathyresolved -Etiology unknown. Unsure if secondary to COVID-19 pneumonia versus hypernatremia. -Baseline mentation is currently unknown. Neurology consulted; appreciate recs. Holding on chemical sedation unless absolutely necessary. Continue to monitor. #Acute hypoxic respiratory failure secondary to COVID-19resolved #COVID-19 pneumoniastable Patient weaned to room air Continue daily Decadron x10 days (end date 12/05/2021). Not a candidate for remdesivir. Pulmonary consulted; appreciate recs Infectious disease consulted; appreciate recs Continue weaning as tolerated Proning as tolerated #Insulin dependent type II diabetes mellitus - hemoglobin A1c: Pending - current regimen: NPH 10 units twice daily - blood glucose goal 140-180 while inpatient - continue to monitor #Hypertension Hydralazine 10 mg IV every 6 hours as needed. We will monitor the blood pressure closely # ROSANA (acute kidney injury) secondary to vasomotor nephropathyresolved Creatinine 1.3 (currently at baseline) Patient still has prerenal azotemia Nephrology consulted; appreciate recs Continue IV fluids per nephrology recommendations # Hypokalemia Repleted. Continue to monitor #Hypernatremia Sodium 164-->157-->154-->158 Patient has been preventing staff from administering IV fluids for correction of hyponatremia. Patient requiring moderate sedation and restraints prior to initiating IV fluids again today. Once hyponatremia has resolved, sedation can be stopped. Current sedation is Haldol 5 mg every 6 hours as needed (for agitation) and IV Ativan 2 mg every 8 hours scheduled. Monitor electrolytes # Urinary tract infectionresolved Completed IV antibiotic therapy Urine cultures negative for bacteria and positive for Natalia Blood cultures-no growth #Constipation Continue stool softener #CAD #Cardiomyopathy #Chronic HFrEF Cardiology consulted; appreciate recs TTE revealing EF 35 to 40% Continue low-dose beta-tee #Bradycardia Heart rate in the low low 50s Likely secondary to beta-tee. Holding beta tee. #Hyperglycemia Continue insulin sliding scale coverage Blood glucose goal [id number] while inpatient. Continue to monitor #Severe debility Consulted physical therapy and Occupational Therapy; recommend subacute rehab #Advanced care planning -Disease education conducted, care plan discussed, diagnoses discussed, prognosis discussed, and patient acknowledges understanding with care plan -Time: +30 min #Discharge planning - Patient is pending resolution of hypernatremia. -Patient will likely require SNF placement. Case management has been made aware. Disposition Plan: Continue medical management Total Time Spent with Patient (Minutes): 45 minutes History Interval history: No acute events overnight. Hospitalist Physical - Constitutional Vitals: Temp Pulse Resp BP Pulse Ox 98.5 F 58 L 18 115/71 96 12/07/21 20:45 12/07/21 20:45 12/07/21 22:00 12/07/21 20:45 12/07/21 22:00 General appearance: Present: no acute distress, cachectic - EENT Eyes: Present: PERRL, EOM intact ENT: hearing intact, clear oral mucosa - Neck Neck: Present: supple, normal ROM - Respiratory Respiratory effort: normal Respiratory: bilateral: diminished - Cardiovascular Rhythm: regular Heart Sounds: Present: S1 & S2 - Extremities Extremities: no ischemia, pulses intact, pulses symmetrical, No edema, normal temperature, normal color, Full ROM Peripheral Pulses: within normal limits - Abdominal General gastrointestinal: soft, non-tender, non-distended, normal bowel sounds - Integumentary Integumentary: Present: clear, warm, dry - Psychiatric Psychiatric: agitated, other (Uncooperative and constantly getting out of restraints) - Neurologic Neurologic: CNII-XII intact, moves all extremities - Allied Health Allied health notes reviewed: nursing Results - Labs CBC & Chem 7: 12/04/21 07:17 12/08/21 08:03 Labs: Laboratory Last Values WBC 5.5 K/mm3 (4.5-11.0) 12/04/21 07:17 RBC 3.52 M/mm3 (3.65-5.03) L 12/04/21 07:17 Hgb 10.4 gm/dl (11.8-15.2) L 12/04/21 07:17 Hct 33.6 % (35.5-45.6) L 12/04/21 07:17 MCV 95 fl (84-94) H 12/04/21 07:17 MCH 30 pg (28-32) 12/04/21 07:17 MCHC 31 % (32-34) L 12/04/21 07:17 RDW 15.7 % (13.2-15.2) H 12/04/21 07:17 Plt Count 284 K/mm3 (140-440) 12/04/21 07:17 Lymph % (Auto) 17.8 % (13.4-35.0) 12/04/21 07:17 Saunders % (Auto) 14.7 % (0.0-7.3) H 12/04/21 07:17 Eos % (Auto) 0.6 % (0.0-4.3) 12/04/21 07:17 Baso % (Auto) 0.4 % (0.0-1.8) 12/04/21 07:17 Lymph # (Auto) 1.0 K/mm3 (1.2-5.4) L 12/04/21 07:17 Saunders # (Auto) 0.8 K/mm3 (0.0-0.8) 12/04/21 07:17 Eos # (Auto) 0.0 K/mm3 (0.0-0.4) 12/04/21 07:17 Baso # (Auto) 0.0 K/mm3 (0.0-0.1) 12/04/21 07:17 Add Manual Diff Complete 11/21/21 19:36 Total Counted 100 11/21/21 19:36 Seg Neutrophils % 66.5 % (40.0-70.0) 12/04/21 07:17 Seg Neuts % (Manual) 79.0 % (40.0-70.0) H 11/21/21 19:36 Lymphocytes % (Manual) 10.0 % (13.4-35.0) L 11/21/21 19:36 Monocytes % (Manual) 8.0 % (0.0-7.3) H 11/21/21 19:36 Basophils % (Manual) 3.0 % (0.0-1.8) H 11/21/21 19:36 Nucleated RBC % Not Reportable 11/21/21 19:36 Seg Neutrophils # 3.6 K/mm3 (1.8-7.7) 12/04/21 07:17 Seg Neutrophils # Man 5.3 K/mm3 (1.8-7.7) 11/21/21 19:36 Band Neutrophils # 0.0 K/mm3 11/21/21 19:36 Lymphocytes # (Manual) 0.7 K/mm3 (1.2-5.4) L 11/21/21 19:36 Abs React Lymphs (Man) 0.0 K/mm3 11/21/21 19:36 Monocytes # (Manual) 0.5 K/mm3 (0.0-0.8) 11/21/21 19:36 Eosinophils # (Manual) 0.0 K/mm3 (0.0-0.4) 11/21/21 19:36 Basophils # (Manual) 0.2 K/mm3 (0.0-0.1) H 11/21/21 19:36 Metamyelocytes # 0.0 K/mm3 11/21/21 19:36 Myelocytes # 0.0 K/mm3 11/21/21 19:36 Promyelocytes # 0.0 K/mm3 11/21/21 19:36 Blast Cells # 0.0 K/mm3 11/21/21 19:36 WBC Morphology Not Reportable 11/21/21 19:36 Hypersegmented Neuts Not Reportable 11/21/21 19:36 Hyposegmented Neuts Not Reportable 11/21/21 19:36 Hypogranular Neuts Not Reportable 11/21/21 19:36 Smudge Cells Not Reportable 11/21/21 19:36 Toxic Granulation Not Reportable 11/21/21 19:36 Toxic Vacuolation Not Reportable 11/21/21 19:36 Dohle Bodies Not Reportable 11/21/21 19:36 Pelger-Huet Anomaly Not Reportable 11/21/21 19:36 Luan Rods Not Reportable 11/21/21 19:36 Platelet Estimate Consistent w auto 11/21/21 19:36 Clumped Platelets Not Reportable 11/21/21 19:36 Plt Clumps, EDTA Not Reportable 11/21/21 19:36 Large Platelets Not Reportable 11/21/21 19:36 Giant Platelets Not Reportable 11/21/21 19:36 Platelet Satelliting Not Reportable 11/21/21 19:36 Plt Morphology Comment Not Reportable 11/21/21 19:36 RBC Morphology Normal 11/21/21 19:36 Dimorphic RBCs Not Reportable 11/21/21 19:36 Polychromasia Not Reportable 11/21/21 19:36 Hypochromasia Not Reportable 11/21/21 19:36 Poikilocytosis Not Reportable 11/21/21 19:36 Anisocytosis Not Reportable 11/21/21 19:36 Microcytosis Not Reportable 11/21/21 19:36 Macrocytosis Not Reportable 11/21/21 19:36 Spherocytes Not Reportable 11/21/21 19:36 Pappenheimer Bodies Not Reportable 11/21/21 19:36 Sickle Cells Not Reportable 11/21/21 19:36 Target Cells Not Reportable 11/21/21 19:36 Tear Drop Cells Not Reportable 11/21/21 19:36 Ovalocytes Not Reportable 11/21/21 19:36 Helmet Cells Not Reportable 11/21/21 19:36 Christie-Hersey Bodies Not Reportable 11/21/21 19:36 Bates Rings Not Reportable 11/21/21 19:36 [place] Cells Not Reportable 11/21/21 19:36 Bite Cells Not Reportable 11/21/21 19:36 Crenated Cell Not Reportable 11/21/21 19:36 Elliptocytes Not Reportable 11/21/21 19:36 Acanthocytes (Spur) Not Reportable 11/21/21 19:36 Rouleaux Not Reportable 11/21/21 19:36 Hemoglobin C Crystals Not Reportable 11/21/21 19:36 Schistocytes Not Reportable 11/21/21 19:36 Malaria parasites Not Reportable 11/21/21 19:36 Kalia Bodies Not Reportable 11/21/21 19:36 Hem Pathologist Commnt No 11/21/21 19:36 D-Dimer 1279.46 ng/mlDDU (0-234) H 11/26/21 16:44 Sodium 155 mmol/L (137-145) H 12/07/21 05:36 Potassium 3.2 mmol/L (3.6-5.0) L 12/07/21 05:36 Chloride 118.5 mmol/L (98-107) H 12/07/21 05:36 Carbon Dioxide 26 mmol/L (22-30) 12/07/21 05:36 Anion Gap 14 mmol/L 12/07/21 05:36 BUN 14 mg/dL (9-20) 12/07/21 05:36 Creatinine 1.3 mg/dL (0.8-1.3) 12/07/21 05:36 Estimated GFR > 60 ml/min 12/07/21 05:36 BUN/Creatinine Ratio 11 % 12/07/21 05:36 Glucose 98 mg/dL (75-100) 12/07/21 05:36 POC Glucose 94 mg/dL (70-105) 12/08/21 07:28 Osmolality 316 Mosm/kg 11/27/21 Unknown Uric Acid 9.8 mg/dL (3.5-7.6) H 11/27/21 Unknown Calcium 8.2 mg/dL (8.4-10.2) L 12/07/21 05:36 Phosphorus 1.90 mg/dL (2.5-4.5) L 12/03/21 04:00 Magnesium 2.30 mg/dL (1.7-2.3) 12/07/21 05:36 Total Bilirubin 0.40 mg/dL (0.1-1.2) 11/28/21 06:47 AST 22 units/L (5-40) 11/28/21 06:47 ALT 28 units/L (7-56) 11/28/21 06:47 Alkaline Phosphatase 197 units/L (35-129) H 11/28/21 06:47 Ammonia 12.0 umol/L (25-60) L 11/28/21 12:59 C-Reactive Protein 13.00 mg/dL (0.00-1.30) H 11/27/21 05:17 Total Protein 5.6 g/dL (6.3-8.2) L 11/28/21 06:47 Albumin 2.5 g/dL (3.9-5) L 11/28/21 06:47 Albumin/Globulin Ratio 0.8 % 11/28/21 06:47 Procalcitonin 3.10 ng/mL (<0.15) 11/26/21 08:21 TSH 4.800 mlU/mL (0.270-4.200) H 11/21/21 19:37 Urine Color Kimberli (Yellow) 11/27/21 Unknown Urine Turbidity Slightly-cloudy (Clear) 11/27/21 Unknown Urine pH 5.0 (5.0-7.0) 11/27/21 Unknown Ur Specific [place] 1.013 (1.003-1.030) 11/27/21 Unknown Urine Protein <15 mg/dl mg/dL (Negative) 11/27/21 Unknown Urine Glucose (UA) 50 mg/dL (Negative) 11/27/21 Unknown Urine Ketones Tr mg/dL (Negative) 11/27/21 Unknown Urine Blood Neg (Negative) 11/27/21 Unknown Urine Nitrite Neg (Negative) 11/27/21 Unknown Urine Bilirubin Neg (Negative) 11/27/21 Unknown Urine Urobilinogen < 2.0 mg/dL (<2.0) 11/27/21 Unknown Ur Leukocyte Esterase Neg (Negative) 11/27/21 Unknown Urine WBC (Auto) 13.0 /HPF (0.0-6.0) H 11/27/21 Unknown Urine RBC (Auto) 2.0 /HPF (0.0-6.0) 11/27/21 Unknown U Epithel Cells (Auto) 1.0 /HPF (0-13.0) 11/27/21 Unknown Urine Bacteria (Auto) 1+ /HPF (Negative) 11/27/21 Unknown Urine Mucus Few /HPF 11/27/21 Unknown Urine Yeast (Budding) 2+ /HPF 11/27/21 Unknown Urine Creatinine 80.9 mg/dL (0.1-20.0) H 11/27/21 Unknown Urine Sodium 36 mmol/L 11/27/21 Unknown Urine Total Protein 43 mg/dL (5-11.8) H 11/27/21 Unknown Coronavirus (PCR) Positive (Negative) A 11/23/21 Unknown Fritz/IV: Voiding Method Condom Catheter Active Medications - Current Medications Current Medications: Generic Name Dose Route Start Last Admin Trade Name Freq PRN Reason Stop Dose Admin Acetaminophen 650 mg 11/22/21 05:48 Acetaminophen 325 Mg Tab PO Q4H PRN Pain MILD(1-3)/Fever >100.5/BRODY Albuterol 2.5 mg 11/25/21 12:00 Albuterol 2.5 Mg/3 Ml Nebu IH Q4HRT PRN Shortness Of Breath Dextrose 50 ml 12/02/21 15:42 Dextrose 50% In Water (25gm) 50 Ml Syringe IV Q30MIN PRN Hypoglycemia Protocol Docusate Sodium 100 mg 11/25/21 22:00 12/07/21 22:03 Docusate Sodium 100 Mg Cap PO 100 mg BID NANDINI Administration Enoxaparin Sodium 70 mg 11/26/21 12:30 12/07/21 22:03 Enoxaparin 80 Mg/0.8 Ml Inj SUB-Q 70 mg Q12HR NANDINI Administration Haloperidol Lactate 5 mg 12/07/21 15:34 12/07/21 15:44 Haloperidol Lactate 5 Mg/1 Ml Inj IM 5 mg Q6H PRN Administration Agitation Hydromorphone HCl 0.5 mg 11/22/21 05:48 11/23/21 06:02 Hydromorphone 1 Mg/1 Ml Inj IV 0.5 mg Q3H PRN Administration Pain , Severe (7-10) Potassium Chloride 20 meq/ 1,010 mls @ 150 mls/hr 12/07/21 10:50 Dextrose IV DIRECT NANDINI Insulin Human Lispro 0 unit 11/22/21 07:30 12/07/21 22:02 Insulin Lispro 100 Unit/Ml SUB-Q Not Given ACHS [facility] Protocol Morphine Sulfate 2 mg 11/22/21 05:48 12/03/21 21:38 Morphine 2 Mg/1 Ml Inj IV 2 mg Q4H PRN Administration Pain, Moderate (4-6) Ondansetron HCl 4 mg 11/22/21 05:48 12/03/21 21:38 Ondansetron 4 Mg/2 Ml Inj IV 4 mg Q8H PRN Administration Nausea And Vomiting Sodium Chloride 10 ml 11/22/21 10:00 12/07/21 22:03 Sodium Chloride 0.9% 10 Ml Flush Syringe IV 10 ml BID NANDINI Administration Sodium Chloride 10 ml 11/22/21 05:48 Sodium Chloride 0.9% 10 Ml Flush Syringe IV PRN PRN LINE FLUSH Nutrition/Malnutrition Assess - Dietary Evaluation Nutrition/Malnutrition Findings: Nutrition Notes Start: 11/22/21 14:16 Freq: Status: Active Protocol: Document 12/04/21 16:40 NICKO (Rec: 12/04/21 16:51 NICKO [id number]) Nutrition Notes Initial or Follow up Brief Note Current Diet Cardiac Consistent Carbohydrates Diet (since B ). Height 5 ft 11 in Weight 68.8 kg Perrin Body Weight (kg) 78.18 BMI 21.1 Weight change and time frame No body weight change reported . Weight Status Underweight Subjective/Other Information RD consult for routine F/U on %PO intake of meals and ONS. Pt's PO intake of meals and ONS has been neglible (0%), according to ADL notes. MD requested to d/c ONS. Percent of energy/protein needs met: Prescribed Cardiac/Consistent Carbohydrates Diet provides for energy/protein needs (1, 977 Kcal/86 g) during LOS Current % PO Negligible #1 Nutrition Diagnosis Underweight Comments: Pt's PO intake of meals and ONS has been neglible (0%), according to ADL notes. MD requested to d/c ONS. Diagnosis Progress(for reassessment Worsened documentation) Nutrition Intervention Change Diet Order: Continue Cardiac Consistent Carbohydrates Diet. Add Supplement/Snack (indicate name/kcal d/c /protein ) Follow-Up By: 12/08/21 Additional Comments Continue monitoring food tolerance, %PO intake of meals , and BM.
[2021-12-08 08:50] LABS: Calcium 8.1 mg/dL (8.4-10.2)
[2021-12-08] MEDS ORDERED: POTASSIUM CHLORIDE ER 20 MEQ TAB PO NR (09:15)
--- NOTE | 2021-12-08 09:32 | Progress Note ---
Assessment and Plan Impression * Nonoliguric acute kidney injury secondary to prerenal azotemia (FeNa 0.5%) --Baseline SCr 1.3mg/dL * Acute hypoxic respiratory failure secondary to COVID 19 PNA * Severe COVID-19 pneumonia * Hypernatremia * Hypokalemia * Acute encephalopathy * Cardiomyopathy - EF 35% * Anemia * Urinary tract infection - Klebsiella pneumonia * Mild left hydronephrosis Recommendations * Renal function now at baseline * Continue D5W w/ 20KCl - continue current rate * Continue to hold MIREYA inhibitor/ARB at this time * Encourage free water intake * Management of COVID-19 PNA per ID and primary team * Abx per ID * Maintain MAP >65 * Avoid potential nephrotoxins * Monitor lytes, fluid balance closely * Strict I/O Subjective Date of service: 12/08/21 Principal diagnosis: Acute encephalopathy, Acute resp failure, Covid PNA, CMP, chronic HFrEF Interval history: Chart, vitals, labs reviewed Objective - Exam Narrative Exam: Exam deferred, primary team exam noted - Vital Signs Vital signs: Vital Signs - 12hr 12/07/21 22:00 Respiratory 18 Rate O2 Sat by Pulse 96 Oximetry - Lab 12/04/21 07:17 12/08/21 08:03 Most recent lab results Calcium 8.1 mg/dL (8.4-10.2) L 12/08/21 08:03 Phosphorus 1.90 mg/dL (2.5-4.5) L 12/03/21 04:00 Magnesium 2.30 mg/dL (1.7-2.3) 12/07/21 05:36 Urine Creatinine 80.9 mg/dL (0.1-20.0) H 11/27/21 Unknown Urine Sodium 36 mmol/L 11/27/21 Unknown Urine Total Protein 43 mg/dL (5-11.8) H 11/27/21 Unknown Medications & Allergies - Medications Allergies/Adverse Reactions: Allergies No Known Allergies Allergy (Verified 11/22/21 05:55) Home Medications: Home Medications Medication Instructions Recorded Confirmed Last Taken Type Furosemide [Lasix TAB] 80 mg PO TID 11/24/21 11/24/21 Unknown History Gabapentin [Neurontin] 300 mg PO BID 11/24/21 11/27/21 11/19/21 09:12 History 300 mg Sacubitril/Valsartan [Entresto 1 tab PO BID 11/24/21 11/27/21 11/19/21 09:12 History 49-51 mg] 1 tab Spironolactone [Aldactone] 25 mg PO QDAY 11/24/21 11/27/21 11/19/21 09:12 History 25 mg Tamsulosin [Flomax] 0.4 mg PO QDAY 11/24/21 11/27/21 11/18/21 22:02 History 0.4 mg carvediloL [Coreg] 6.25 mg PO BID 11/24/21 11/27/21 11/19/21 09:12 History 6.25mg AtorvaSTATin [Lipitor] 40 mg PO QHS 11/27/21 11/27/21 11/19/21 09:12 History 40 mg Insulin Glargine,Hum.rec.anlog 12 unit SQ QHS 11/27/21 11/27/21 11/18/21 22:02 History [Lantus Solostar] 12 units Insulin Lispro [Admelog] 1 - 12 unit SQ TIDAC 11/27/21 11/27/21 11/19/21 08:32 History 6 units Insulin Lispro [Admelog] 4 unit SQ TID 11/27/21 11/27/21 11/19/21 08:33 History 4 units oxyCODONE /ACETAMINOPHEN [Percocet 1 tab PO Q6HR PRN 11/27/21 11/27/21 11/19/21 03:57 History 5/325] 1 tab Active Medications: Generic Name Dose Route Start Last Admin Trade Name Freq PRN Reason Stop Dose Admin Acetaminophen 650 mg 11/22/21 05:48 Acetaminophen 325 Mg Tab PO Q4H PRN Pain MILD(1-3)/Fever >100.5/BRODY Albuterol 2.5 mg 11/25/21 12:00 Albuterol 2.5 Mg/3 Ml Nebu IH Q4HRT PRN Shortness Of Breath Dextrose 50 ml 12/02/21 15:42 Dextrose 50% In Water (25gm) 50 Ml Syringe IV Q30MIN PRN Hypoglycemia Protocol Docusate Sodium 100 mg 11/25/21 22:00 12/07/21 22:03 Docusate Sodium 100 Mg Cap PO 100 mg BID NANDINI Administration Enoxaparin Sodium 70 mg 11/26/21 12:30 12/07/21 22:03 Enoxaparin 80 Mg/0.8 Ml Inj SUB-Q 70 mg Q12HR NANDINI Administration Haloperidol Lactate 5 mg 12/07/21 15:34 12/07/21 15:44 Haloperidol Lactate 5 Mg/1 Ml Inj IM 5 mg Q6H PRN Administration Agitation Hydromorphone HCl 0.5 mg 11/22/21 05:48 11/23/21 06:02 Hydromorphone 1 Mg/1 Ml Inj IV 0.5 mg Q3H PRN Administration Pain , Severe (7-10) Potassium Chloride 20 meq/ 1,010 mls @ 150 mls/hr 12/07/21 10:50 Dextrose IV DIRECT [facility] Insulin Human Lispro 0 unit 11/22/21 07:30 12/07/21 22:02 Insulin Lispro 100 Unit/Ml SUB-Q Not Given ACHS [facility] Protocol Morphine Sulfate 2 mg 11/22/21 05:48 12/03/21 21:38 Morphine 2 Mg/1 Ml Inj IV 2 mg Q4H PRN Administration Pain, Moderate (4-6) Ondansetron HCl 4 mg 11/22/21 05:48 12/03/21 21:38 Ondansetron 4 Mg/2 Ml Inj IV 4 mg Q8H PRN Administration Nausea And Vomiting Potassium Chloride 40 meq 12/08/21 09:15 Potassium Chloride Er 20 Meq Tab PO 12/08/21 13:00 ONCE@0915 NR Sodium Chloride 10 ml 11/22/21 10:00 12/07/21 22:03 Sodium Chloride 0.9% 10 Ml Flush Syringe IV 10 ml BID NANDINI Administration Sodium Chloride 10 ml 11/22/21 05:48 Sodium Chloride 0.9% 10 Ml Flush Syringe IV PRN PRN LINE FLUSH
[2021-12-08] MEDS: DOCUSATE SODIUM 100 MG CAP PO SCH ×2 (10:36→22:00)
[2021-12-08] MEDS: ENOXAPARIN 80 MG/0.8 ML INJ SUB-Q SCH ×3 (10:42→22:17)
[2021-12-08] MEDS: HALOPERIDOL LACTATE 5 MG/1 ML INJ IM PRN (10:42)
[2021-12-08] MEDS: LORazepam 2 MG/ML VIAL IV SCH ×4 (10:52→22:10)
--- NOTE | 2021-12-08 11:11 | Progress Note ---
Assessment and Plan Free water supplementation. - Patient Problems (1) Acute respiratory failure with hypoxia Current Visit: Yes Status: Acute (2) Acute metabolic encephalopathy Current Visit: Yes Status: Acute (3) Pneumonia due to COVID-19 virus Current Visit: Yes Status: Acute (4) ROSANA (acute kidney injury) Current Visit: Yes Status: Acute (5) Chronic HFrEF (heart failure with reduced ejection fraction) Current Visit: Yes Status: Chronic (6) Cardiomyopathy Current Visit: Yes Status: Chronic Qualifiers: Cardiomyopathy type: other Qualified Code(s): I42.8 - Other cardiomyopathies (7) CAD (coronary artery disease) Current Visit: Yes Status: Chronic Qualifiers: Coronary Disease-Associated Artery/Lesion type: [place] artery (8) COPD (chronic obstructive pulmonary disease) Current Visit: Yes Status: Chronic (9) Diabetes mellitus Current Visit: Yes Status: Chronic Subjective Date of service: 12/08/21 Principal diagnosis: Acute encephalopathy, Acute resp failure, Covid PNA, CMP, chronic HFrEF Interval history: No significant change overnight. Objective Vital Signs Temp Pulse Resp BP BP Pulse Ox 12/07/21 22:00 18 96 12/07/21 21:04 97 12/07/21 20:45 98.5 F 58 L 18 115/71 99 12/07/21 15:51 97.0 F L 40 L 20 113/69 77 L 12/07/21 12:18 98.6 F 85 24 135/75 97 12/07/21 12:16 98.6 F 24 135/75 12/07/21 11:16 100 - Physical Examination General: No Apparent Distress, Other (AMS) HEENT: Positive: Normocephaly, Mucus Membranes Moist, Mucus Membranes Dry Neck: Positive: neck supple, trachea midline Cardiac: Positive: Reg Rate and Rhythm Lungs: Positive: clear to auscultation Neuro: Positive: Other (Altered sensorium) Abdomen: Positive: Soft, Active Bowel Sounds Skin: Positive: Suspicious Lesions, Ulceration. Negative: Rash Musculoskeletal: Normal Range of Motion Extremities: Absent: edema - Labs and Meds Comprehensive Metabolic Panel 12/08/21 Range/Units 08:03 Sodium 158 H (137-145) mmol/L Potassium 3.4 L (3.6-5.0) mmol/L Chloride 122.1 H (98-107) mmol/L Carbon Dioxide 25 (22-30) mmol/L BUN 13 (9-20) mg/dL Creatinine 1.4 H (0.8-1.3) mg/dL Glucose 107 H (75-100) mg/dL Calcium 8.1 L (8.4-10.2) mg/dL - Imaging and Cardiology Echo: report reviewed - EKG Sinus rhythms and dysrhythmias: sinus rhythm, sinus bradycardia
[2021-12-08] MEDS: DEXTROSE 5% IN WATER 1,000 ML IV SCH ×3 (12:22→17:35)
[2021-12-08] MEDS: POTASSIUM CHLORIDE 10 MEQ 10 MEQ/100 ML BAG IV SCH ×4 (14:26→17:33)
[2021-12-09] MEDS: DEXTROSE 5% IN WATER 1,000 ML IV SCH ×2 (01:00→10:36)
[2021-12-09] MEDS: LORazepam 2 MG/ML VIAL IV SCH ×4 (02:30→22:01)
[2021-12-09 08:14] LABS: BUN/Creatinine Ratio 9; Blood Urea Nitrogen 10 mg/dL (9-20); Calcium 7.6 mg/dL (8.4-10.2); Hemolysis Index 3
--- NOTE | 2021-12-09 09:35 | Progress Note ---
Assessment and Plan Impression * Nonoliguric acute kidney injury secondary to prerenal azotemia (FeNa 0.5%) --Baseline SCr 1.3mg/dL * Acute hypoxic respiratory failure secondary to COVID 19 PNA * Severe COVID-19 pneumonia * Hypernatremia * Hypokalemia * Acute encephalopathy * Cardiomyopathy - EF 35% * Anemia * Urinary tract infection - Klebsiella pneumonia * Mild left hydronephrosis Recommendations * Renal function now at baseline. Na is trending down * Continue D5W w/ 20KCl * Continue to hold MIREYA inhibitor/ARB at this time * Encourage free water intake * Management of COVID-19 PNA per ID and primary team * Abx per ID * Maintain MAP >65 * Avoid potential nephrotoxins * Monitor lytes, fluid balance closely * Strict I/O Subjective Date of service: 12/09/21 Principal diagnosis: Acute encephalopathy, Acute resp failure, Covid PNA, CMP, chronic HFrEF Interval history: Chart, vitals, labs reviewed Objective - Exam Narrative Exam: Exam deferred, primary team exam noted - Vital Signs Vital signs: Vital Signs - 12hr 12/08/21 12/08/21 12/08/21 21:35 22:00 22:07 Temperature 97.9 F Pulse Rate 62 Respiratory 16 24 Rate Blood Pressure 124/73 O2 Sat by Pulse 84 95 100 Oximetry 12/08/21 12/09/21 12/09/21 22:15 00:00 05:40 Temperature 97.4 F L Pulse Rate Respiratory 18 Rate Blood Pressure 117/73 O2 Sat by Pulse 100 95 Oximetry 12/09/21 12/09/21 06:06 06:12 Temperature Pulse Rate 70 Respiratory 20 Rate Blood Pressure O2 Sat by Pulse 94 Oximetry - Lab 12/04/21 07:17 12/09/21 07:05 Most recent lab results Calcium 7.6 mg/dL (8.4-10.2) L 12/09/21 07:05 Phosphorus 1.90 mg/dL (2.5-4.5) L 12/03/21 04:00 Magnesium 2.30 mg/dL (1.7-2.3) 12/07/21 05:36 Urine Creatinine 80.9 mg/dL (0.1-20.0) H 11/27/21 Unknown Urine Sodium 36 mmol/L 11/27/21 Unknown Urine Total Protein 43 mg/dL (5-11.8) H 11/27/21 Unknown Medications & Allergies - Medications Allergies/Adverse Reactions: Allergies No Known Allergies Allergy (Verified 11/22/21 05:55) Home Medications: Home Medications Medication Instructions Recorded Confirmed Last Taken Type Furosemide [Lasix TAB] 80 mg PO TID 11/24/21 11/24/21 Unknown History Gabapentin [Neurontin] 300 mg PO BID 11/24/21 11/27/21 11/19/21 09:12 History 300 mg Sacubitril/Valsartan [Entresto 1 tab PO BID 11/24/21 11/27/21 11/19/21 09:12 History 49-51 mg] 1 tab Spironolactone [Aldactone] 25 mg PO QDAY 11/24/21 11/27/21 11/19/21 09:12 History 25 mg Tamsulosin [Flomax] 0.4 mg PO QDAY 11/24/21 11/27/21 11/18/21 22:02 History 0.4 mg carvediloL [Coreg] 6.25 mg PO BID 11/24/21 11/27/21 11/19/21 09:12 History 6.25mg AtorvaSTATin [Lipitor] 40 mg PO QHS 11/27/21 11/27/21 11/19/21 09:12 History 40 mg Insulin Glargine,Hum.rec.anlog 12 unit SQ QHS 11/27/21 11/27/21 11/18/21 22:02 H istory [Lantus Solostar] 12 units Insulin Lispro [Admelog] 1 - 12 unit SQ TIDAC 11/27/21 11/27/21 11/19/21 08:32 History 6 units Insulin Lispro [Admelog] 4 unit SQ TID 11/27/21 11/27/21 11/19/21 08:33 History 4 units oxyCODONE /ACETAMINOPHEN [Percocet 1 tab PO Q6HR PRN 11/27/21 11/27/21 11/19/21 03:57 History 5/325] 1 tab Active Medications: Generic Name Dose Route Start Last Admin Trade Name Freq PRN Reason Stop Dose Admin Acetaminophen 650 mg 11/22/21 05:48 Acetaminophen 325 Mg Tab PO Q4H PRN Pain MILD(1-3)/Fever >100.5/BRODY Albuterol 2.5 mg 11/25/21 12:00 Albuterol 2.5 Mg/3 Ml Nebu IH Q4HRT PRN Shortness Of Breath Dextrose 50 ml 12/02/21 15:42 Dextrose 50% In Water (25gm) 50 Ml Syringe IV Q30MIN PRN Hypoglycemia Protocol Docusate Sodium 100 mg 11/25/21 22:00 12/08/21 22:00 Docusate Sodium 100 Mg Cap PO Not Given BID NANDINI Enoxaparin Sodium 70 mg 11/26/21 12:30 12/08/21 22:17 Enoxaparin 80 Mg/0.8 Ml Inj SUB-Q 70 mg Q12HR NANDINI Administration Haloperidol Lactate 5 mg 12/07/21 15:34 12/08/21 10:42 Haloperidol Lactate 5 Mg/1 Ml Inj IM 5 mg Q6H PRN Administration Agitation Hydromorphone HCl 0.5 mg 11/22/21 05:48 11/23/21 06:02 Hydromorphone 1 Mg/1 Ml Inj IV 0.5 mg Q3H PRN Administration Pain , Severe (7-10) Dextrose 1,000 mls @ 150 mls/hr 12/08/21 12:00 12/09/21 01:00 D5w IV 150 mls/hr DIRECT NANDINI Administration Insulin Human Lispro 0 unit 11/22/21 07:30 12/08/21 22:00 Insulin Lispro 100 Unit/Ml SUB-Q Not Given ACHS NANDINI Protocol Lorazepam 2 mg 12/08/21 10:00 12/09/21 06:28 Lorazepam 2 Mg/Ml Vial IV 2 mg Q4HR NANDINI Administration Morphine Sulfate 2 mg 11/22/21 05:48 12/03/21 21:38 Morphine 2 Mg/1 Ml Inj IV 2 mg Q4H PRN Administration Pain, Moderate (4-6) Ondansetron HCl 4 mg 11/22/21 05:48 12/03/21 21:38 Ondansetron 4 Mg/2 Ml Inj IV 4 mg Q8H PRN Administration Nausea And Vomiting Sodium Chloride 10 ml 11/22/21 10:00 12/08/21 22:16 Sodium Chloride 0.9% 10 Ml Flush Syringe IV 10 ml BID NANDINI Administration Sodium Chloride 10 ml 11/22/21 05:48 Sodium Chloride 0.9% 10 Ml Flush Syringe IV PRN PRN LINE FLUSH
[2021-12-09] MEDS: ENOXAPARIN 80 MG/0.8 ML INJ SUB-Q SCH ×2 (10:34→22:02)
[2021-12-09] MEDS: INSULIN LISPRO 100 UNIT/ML SUB-Q SCH ×2 (10:35→22:14)
[2021-12-09] MEDS: DOCUSATE SODIUM 100 MG CAP PO SCH ×2 (10:35→22:00)
[2021-12-09] MEDS ORDERED: SODIUM CHLORIDE 0.9% 500 ML 500 ML IV ONE (11:00)
--- NOTE | 2021-12-09 12:53 | Progress Note ---
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 Currently anticoagulated on Lovenox COPD DM Echo 11/27/2021- EF 40 to 45%, mild global hypokinesis of left ventricle. Right ventricular systolic function is normal. Mild aortic regurgitation. Trace tricuspid and pulmonic regurgitation Echo 12/01/2020- LVEF 35 - 40%. LV systolic function is moderately decreased,Grade I (mild) diastolic dysfunction. There were technical limitations during this study due to patient positioning and patient body habitus. Poor views unable to evaluate any of the valves PET Stress 01/31/2021- Abnormal pharmacological PET stress test. There is a small sized mild to moderate intensity partially reversible perfusion defect seen in the apical inferior wall consistent with infarct/scar and a small amount of ischemia. SSS 3, SRS 1, SDS 2. TID 0.84(normal).Severely depressed resting LV systolic function with a calculated LVEF 22% at rest which increased to 29% with peak stress. Global LV hypokinesis. Coronary calcifications were not seen by chest CT, however CT for attenuation correction is not sensitive. Stress ECG was negative for ischemia. No symptoms of chest pain with vasodilator stress Outpatient medications: Coreg 6.25 mg p.o. twice daily atorvastatin 40 mg p.o. nightly, spironolactone 25 mg p.o. daily, Entresto 49-51 mg p.o. twice daily, Lasix 80 mg p.o. 3 times daily Plan: Patient has been noncompliant with the monitor however vital signs have been documented as stable. Recommend holding beta-tee due to previous episodes of No MIREYA or ARB due to per nephrology recs Continue present management Cardiac status stable. Will see as needed Patient seen in conjunction with Dr. Ann who agrees with this plan of care - Patient Problems (1) Sinus bradycardia Current Visit: Yes Status: Acute (2) COVID-19 Current Visit: Yes Status: Acute (3) ROSANA (acute kidney injury) Current Visit: Yes Status: Acute (4) Acute metabolic encephalopathy Current Visit: Yes Status: Acute (5) Metabolic encephalopathy Current Visit: Yes Status: Acute Subjective Date of service: 12/09/21 Principal diagnosis: Acute encephalopathy, Acute resp failure, Covid PNA, CMP, chronic HFrEF Interval history: Patient sitting in bed in no acute distress. Patient lethargic this a.m. Patient is noncompliant with the Objective Vital Signs Temp Pulse Resp BP Pulse Ox 12/09/21 10:38 95 12/09/21 06:12 70 12/09/21 06:06 20 94 12/09/21 05:40 97.4 F L 18 117/73 12/09/21 00:00 95 12/08/21 22:15 100 12/08/21 22:07 24 100 12/08/21 22:00 95 12/08/21 21:35 97.9 F 62 16 124/73 84 12/08/21 17:24 97.8 F 83 24 123/59 94 - Physical Examination General: No Apparent Distress, Other (AMS) HEENT: Positive: Normocephaly, Mucus Membranes Moist, Mucus Membranes Dry Neck: Positive: neck supple, trachea midline Cardiac: Positive: Regular Rhythm, Bradycardia Lungs: Positive: Normal Breath Sounds Neuro: Positive: Other (Altered sensorium) Abdomen: Positive: Soft, Active Bowel Sounds Skin: Positive: Suspicious Lesions, Ulceration. Negative: Rash Musculoskeletal: Normal Range of Motion Extremities: Absent: edema - Labs and Meds Comprehensive Metabolic Panel 12/09/21 Range/Units 07:05 Sodium 147 H D (137-145) mmol/L Potassium 3.3 L (3.6-5.0) mmol/L Chloride 114.3 H (98-107) mmol/L Carbon Dioxide 26 (22-30) mmol/L BUN 10 (9-20) mg/dL Creatinine 1.1 (0.8-1.3) mg/dL Glucose 249 H (75-100) mg/dL Calcium 7.6 L (8.4-10.2) mg/dL - Imaging and Cardiology Echo: report reviewed - Telemetry EKG Rhythm: Sinus Rhythm - EKG Sinus rhythms and dysrhythmias: sinus rhythm, sinus bradycardia
--- NOTE | 2021-12-09 15:34 | Progress Note ---
Assessment and Plan Assessment and plan: #Acute metabolic encephalopathy -CT head negative for acute findings; MRI unable to be performed secondary to agitation -Etiology unknown, mentation improves as sodium level improves -Delirium precautions -Avoid sedation #Acute hypoxic respiratory failure-improving #COVID-19 pneumonia-stable -Patient currently on 2 L nasal cannula -O2 sats as low as 84%, will likely need home oxygen -Was not candidate for remdesivir due to initial ROSANA -s/p steroids x10 days -continue lovenox #Hypernatremia-improving -Sodium 147 today, will continue D5W #Insulin-dependent type 2 diabetes -Continue NPH 10 units twice daily + SSI -Goal glucose [id number] while inpatient #CAD #Chronic heart failure with reduced ejection fraction -TTE revealing EF of 35 to 40% #Bradycardia-improved -Cardiology following, assistance appreciated -Home beta-tee held #Hypertension -Blood pressure controlled, no meds while inpatient #ROSANA-resolved -Secondary to vasomotor nephropathy #UTI -Status post antibiotics -Urine culture shows [phone] K Natalia species #Hypokalemia -We will continue to replete and monitor #Severe debility -Evaluated by PT and OT, recommendation for subacute rehab at discharge #Discharge planning -Pending SNF placement once medically stable Disposition Plan: continue medical management History Interval history: No acute events overnight. Patient resting comfortably, easily wakes to touch. Hospitalist Physical - Physical exam Narrative exam: GENERAL: Well-developed well-nourished. In no acute distress. HEENT: Nasal cannula 2 L NECK: Supple. CHEST/LUNGS: CTAB on room air HEART/CARDIOVASCULAR: RRR. No murmur, rubs or gallops appreciated. ABDOMEN: +BS. NT/ND. MUSCULOSKELETAL: No joint effusion EXTREMITIES: No cyanosis, clubbing or edema. PSYCH: Alert to self. - Constitutional Vitals: Temp Pulse Resp BP Pulse Ox 97.5 F L 68 22 118/68 96 12/09/21 12:01 12/09/21 12:01 12/09/21 12:01 12/09/21 12:01 12/09/21 12:01 General appearance: Present: no acute distress, cachectic Results - Labs CBC & Chem 7: 12/04/21 07:17 12/09/21 07:05 Labs: Laboratory Last Values WBC 5.5 K/mm3 (4.5-11.0) 12/04/21 07:17 RBC 3.52 M/mm3 (3.65-5.03) L 12/04/21 07:17 Hgb 10.4 gm/dl (11.8-15.2) L 12/04/21 07:17 Hct 33.6 % (35.5-45.6) L 12/04/21 07:17 MCV 95 fl (84-94) H 12/04/21 07:17 MCH 30 pg (28-32) 12/04/21 07:17 MCHC 31 % (32-34) L 12/04/21 07:17 RDW 15.7 % (13.2-15.2) H 12/04/21 07:17 Plt Count 284 K/mm3 (140-440) 12/04/21 07:17 Lymph % (Auto) 17.8 % (13.4-35.0) 12/04/21 07:17 Rock % (Auto) 14.7 % (0.0-7.3) H 12/04/21 07:17 Eos % (Auto) 0.6 % (0.0-4.3) 12/04/21 07:17 Baso % (Auto) 0.4 % (0.0-1.8) 12/04/21 07:17 Lymph # (Auto) 1.0 K/mm3 (1.2-5.4) L 12/04/21 07:17 Rock # (Auto) 0.8 K/mm3 (0.0-0.8) 12/04/21 07:17 Eos # (Auto) 0.0 K/mm3 (0.0-0.4) 12/04/21 07:17 Baso # (Auto) 0.0 K/mm3 (0.0-0.1) 12/04/21 07:17 Add Manual Diff Complete 11/21/21 19:36 Total Counted 100 11/21/21 19:36 Seg Neutrophils % 66.5 % (40.0-70.0) 12/04/21 07:17 Seg Neuts % (Manual) 79.0 % (40.0-70.0) H 11/21/21 19:36 Lymphocytes % (Manual) 10.0 % (13.4-35.0) L 11/21/21 19:36 Monocytes % (Manual) 8.0 % (0.0-7.3) H 11/21/21 19:36 Basophils % (Manual) 3.0 % (0.0-1.8) H 11/21/21 19:36 Nucleated RBC % Not Reportable 11/21/21 19:36 Seg Neutrophils # 3.6 K/mm3 (1.8-7.7) 12/04/21 07:17 Seg Neutrophils # Man 5.3 K/mm3 (1.8-7.7) 11/21/21 19:36 Band Neutrophils # 0.0 K/mm3 11/21/21 19:36 Lymphocytes # (Manual) 0.7 K/mm3 (1.2-5.4) L 11/21/21 19:36 Abs React Lymphs (Man) 0.0 K/mm3 11/21/21 19:36 Monocytes # (Manual) 0.5 K/mm3 (0.0-0.8) 11/21/21 19:36 Eosinophils # (Manual) 0.0 K/mm3 (0.0-0.4) 11/21/21 19:36 Basophils # (Manual) 0.2 K/mm3 (0.0-0.1) H 11/21/21 19:36 Metamyelocytes # 0.0 K/mm3 11/21/21 19:36 Myelocytes # 0.0 K/mm3 11/21/21 19:36 Promyelocytes # 0.0 K/mm3 11/21/21 19:36 Blast Cells # 0.0 K/mm3 11/21/21 19:36 WBC Morphology Not Reportable 11/21/21 19:36 Hypersegmented Neuts Not Reportable 11/21/21 19:36 Hyposegmented Neuts Not Reportable 11/21/21 19:36 Hypogranular Neuts Not Reportable 11/21/21 19:36 Smudge Cells Not Reportable 11/21/21 19:36 Toxic Granulation Not Reportable 11/21/21 19:36 Toxic Vacuolation Not Reportable 11/21/21 19:36 Dohle Bodies Not Reportable 11/21/21 19:36 Pelger-Huet Anomaly Not Reportable 11/21/21 19:36 Luan Rods Not Reportable 11/21/21 19:36 Platelet Estimate Consistent w auto 11/21/21 19:36 Clumped Platelets Not Reportable 11/21/21 19:36 Plt Clumps, EDTA Not Reportable 11/21/21 19:36 Large Platelets Not Reportable 11/21/21 19:36 Giant Platelets Not Reportable 11/21/21 19:36 Platelet Satelliting Not Reportable 11/21/21 19:36 Plt Morphology Comment Not Reportable 11/21/21 19:36 RBC Morphology Normal 11/21/21 19:36 Dimorphic RBCs Not Reportable 11/21/21 19:36 Polychromasia Not Reportable 11/21/21 19:36 Hypochromasia Not Reportable 11/21/21 19:36 Poikilocytosis Not Reportable 11/21/21 19:36 Anisocytosis Not Reportable 11/21/21 19:36 Microcytosis Not Reportable 11/21/21 19:36 Macrocytosis Not Reportable 11/21/21 19:36 Spherocytes Not Reportable 11/21/21 19:36 Pappenheimer Bodies Not Reportable 11/21/21 19:36 Sickle Cells Not Reportable 11/21/21 19:36 Target Cells Not Reportable 11/21/21 19:36 Tear Drop Cells Not Reportable 11/21/21 19:36 Ovalocytes Not Reportable 11/21/21 19:36 Helmet Cells Not Reportable 11/21/21 19:36 [place] Bodies Not Reportable 11/21/21 19:36 [place] Rings Not Reportable 11/21/21 19:36 [place] Cells Not Reportable 11/21/21 19:36 Bite Cells Not Reportable 11/21/21 19:36 Crenated Cell Not Reportable 11/21/21 19:36 Elliptocytes Not Reportable 11/21/21 19:36 Acanthocytes (Spur) Not Reportable 11/21/21 19:36 Rouleaux Not Reportable 11/21/21 19:36 Hemoglobin C Crystals Not Reportable 11/21/21 19:36 Schistocytes Not Reportable 11/21/21 19:36 Malaria parasites Not Reportable 11/21/21 19:36 Kalia Bodies Not Reportable 11/21/21 19:36 Hem Pathologist Commnt No 11/21/21 19:36 D-Dimer 1279.46 ng/mlDDU (0-234) H 11/26/21 16:44 Sodium 147 mmol/L (137-145) H D 12/09/21 07:05 Potassium 3.3 mmol/L (3.6-5.0) L 12/09/21 07:05 Chloride 114.3 mmol/L (98-107) H 12/09/21 07:05 Carbon Dioxide 26 mmol/L (22-30) 12/09/21 07:05 Anion Gap 10 mmol/L 12/09/21 07:05 BUN 10 mg/dL (9-20) 12/09/21 07:05 Creatinine 1.1 mg/dL (0.8-1.3) 12/09/21 07:05 Estimated GFR > 60 ml/min 12/09/21 07:05 BUN/Creatinine Ratio 9 % 12/09/21 07:05 Glucose 249 mg/dL (75-100) H 12/09/21 07:05 POC Glucose 178 mg/dL (70-105) H 12/09/21 12:00 Osmolality 316 Mosm/kg 11/27/21 Unknown Uric Acid 9.8 mg/dL (3.5-7.6) H 11/27/21 Unknown Calcium 7.6 mg/dL (8.4-10.2) L 12/09/21 07:05 Phosphorus 1.90 mg/dL (2.5-4.5) L 12/03/21 04:00 Magnesium 2.30 mg/dL (1.7-2.3) 12/07/21 05:36 Total Bilirubin 0.40 mg/dL (0.1-1.2) 11/28/21 06:47 AST 22 units/L (5-40) 11/28/21 06:47 ALT 28 units/L (7-56) 11/28/21 06:47 Alkaline Phosphatase 197 units/L (35-129) H 11/28/21 06:47 Ammonia 12.0 umol/L (25-60) L 11/28/21 12:59 C-Reactive Protein 13.00 mg/dL (0.00-1.30) H 11/27/21 05:17 Total Protein 5.6 g/dL (6.3-8.2) L 11/28/21 06:47 Albumin 2.5 g/dL (3.9-5) L 11/28/21 06:47 Albumin/Globulin Ratio 0.8 % 11/28/21 06:47 Procalcitonin 3.10 ng/mL (<0.15) 11/26/21 08:21 TSH 4.800 mlU/mL (0.270-4.200) H 11/21/21 19:37 Urine Color Kimberli (Yellow) 11/27/21 Unknown Urine Turbidity Slightly-cloudy (Clear) 11/27/21 Unknown Urine pH 5.0 (5.0-7.0) 11/27/21 Unknown Ur Specific [place] 1.013 (1.003-1.030) 11/27/21 Unknown Urine Protein <15 mg/dl mg/dL (Negative) 11/27/21 Unknown Urine Glucose (UA) 50 mg/dL (Negative) 11/27/21 Unknown Urine Ketones Tr mg/dL (Negative) 11/27/21 Unknown Urine Blood Neg (Negative) 11/27/21 Unknown Urine Nitrite Neg (Negative) 11/27/21 Unknown Urine Bilirubin Neg (Negative) 11/27/21 Unknown Urine Urobilinogen < 2.0 mg/dL (<2.0) 11/27/21 Unknown Ur Leukocyte Esterase Neg (Negative) 11/27/21 Unknown Urine WBC (Auto) 13.0 /HPF (0.0-6.0) H 11/27/21 Unknown Urine RBC (Auto) 2.0 /HPF (0.0-6.0) 11/27/21 Unknown U Epithel Cells (Auto) 1.0 /HPF (0-13.0) 11/27/21 Unknown Urine Bacteria (Auto) 1+ /HPF (Negative) 11/27/21 Unknown Urine Mucus Few /HPF 11/27/21 Unknown Urine Yeast (Budding) 2+ /HPF 11/27/21 Unknown Urine Creatinine 80.9 mg/dL (0.1-20.0) H 11/27/21 Unknown Urine Sodium 36 mmol/L 11/27/21 Unknown Urine Total Protein 43 mg/dL (5-11.8) H 11/27/21 Unknown Coronavirus (PCR) Positive (Negative) A 11/23/21 Unknown Fritz/IV: Voiding Method Condom Catheter Active Medications - Current Medications Current Medications: Generic Name Dose Route Start Last Admin Trade Name Freq PRN Reason Stop Dose Admin Acetaminophen 650 mg 11/22/21 05:48 Acetaminophen 325 Mg Tab PO Q4H PRN Pain MILD(1-3)/Fever >100.5/BRODY Albuterol 2.5 mg 11/25/21 12:00 Albuterol 2.5 Mg/3 Ml Nebu IH Q4HRT PRN Shortness Of Breath Dextrose 50 ml 12/02/21 15:42 Dextrose 50% In Water (25gm) 50 Ml Syringe IV Q30MIN PRN Hypoglycemia Protocol Docusate Sodium 100 mg 11/25/21 22:00 12/09/21 10:35 Docusate Sodium 100 Mg Cap PO Not Given BID NANDINI Enoxaparin Sodium 70 mg 11/26/21 12:30 12/09/21 10:34 Enoxaparin 80 Mg/0.8 Ml Inj SUB-Q 70 mg Q12HR NANDINI Administration Haloperidol Lactate 5 mg 12/07/21 15:34 12/08/21 10:42 Haloperidol Lactate 5 Mg/1 Ml Inj IM 5 mg Q6H PRN Administration Agitation Hydromorphone HCl 0.5 mg 11/22/21 05:48 11/23/21 06:02 Hydromorphone 1 Mg/1 Ml Inj IV 0.5 mg Q3H PRN Administration Pain , Severe (7-10) Dextrose 1,000 mls @ 150 mls/hr 12/08/21 12:00 12/09/21 10:36 D5w IV 150 mls/hr DIRECT NANDINI Administration Insulin Human Lispro 0 unit 11/22/21 07:30 12/09/21 10:35 Insulin Lispro 100 Unit/Ml SUB-Q 3 unit ACHS NANDINI Administration Protocol Lorazepam 2 mg 12/08/21 10:00 12/09/21 10:25 Lorazepam 2 Mg/Ml Vial IV Not Given Q4HR NANDINI Morphine Sulfate 2 mg 11/22/21 05:48 12/03/21 21:38 Morphine 2 Mg/1 Ml Inj IV 2 mg Q4H PRN Administration Pain, Moderate (4-6) Ondansetron HCl 4 mg 11/22/21 05:48 12/03/21 21:38 Ondansetron 4 Mg/2 Ml Inj IV 4 mg Q8H PRN Administration Nausea And Vomiting Potassium Chloride 40 meq 12/09/21 15:22 Potassium Chloride Er 20 Meq Tab PO 12/09/21 15:23 ONCE ONE Sodium Chloride 10 ml 11/22/21 10:00 12/09/21 11:11 Sodium Chloride 0.9% 10 Ml Flush Syringe IV 10 ml BID NANIDNI Administration Sodium Chloride 10 ml 11/22/21 05:48 Sodium Chloride 0.9% 10 Ml Flush Syringe IV PRN PRN LINE FLUSH Nutrition/Malnutrition Assess - Dietary Evaluation Nutrition/Malnutrition Findings: Nutrition Notes Start: 11/22/21 14:16 Freq: Status: Active Protocol: Document 12/08/21 11:17 NICKO (Rec: 12/08/21 11:58 NICKO [id number]) Nutrition Notes Initial or Follow up Reassessment Current Diagnosis Acute Kidney Injury,COPD, Coronary Artery Disease, Diabetes,Respiratory Failure Other Pertinent Diagnosis COVID-19, Pneumonia, Metabolic encephalopathy, Cardiomyopathy, HFrEF. Current Diet Cardiac/Consistent Carbohydrates Diet (since B ), D Suppl (D 12/08). Labs/Tests 12/08: Na 158, K 3.4, Cl 122.1 , Crea 1.4, Glu 107, Ca 8.1. Pertinent Medications 12/08: KCl 40 mEq, others nutritionally unremarkable. Height 5 ft 11 in Weight 68.8 kg [place] Body Weight (kg) 78.18 BMI 21.1 Weight change and time frame No body weight change reported . Weight Status Underweight Subjective/Other Information RD consult for routine F/U on %PO intake of meals. Pt's PO intake has been Neglible (0%) since arrival, according to ADL notes. I spoke with RN and she agreed to try with supplements again , because Pt is only drinking juices and water, but not eating anything solid. I'm prescribing Dietary supplements TID. Pt has missing teeth, according to Physical Assessment History notes. Percent of energy/protein needs met: Prescribed Cardiac/Consistent Carbohydrates Diet provides for energy/protein needs (1, 977 Kcal/86 g) during LOS; additionally, Dietary Supplements will compensate for possible Poor PO intake of meals with 720 Kcal and 24 g of protein. Burn Absent Trauma Absent GI Symptoms None Skin Integrity/Comment Clear, warm, dry. Current % PO Negligible Minimum of two criteria No #2 Nutrition Diagnosis Biting/Chewing (masticatory) difficulty Etiology Unspecified. As Evidenced by Signs and Symptoms Pt has missing teeth, according to Physical Assessment History notes. #1 Nutrition Diagnosis Underweight Comments: Pt's PO intake of meals and ONS has been neglible (0%), according to ADL notes. Diagnosis Progress(for reassessment Continues documentation) Is patient on ventilator? No Is Patient Ambulatory and/or Out of Bed Yes REE-([facility]-ambulatory/OOB) [ [id number] [id number]] Calculation Used for Recommendations [facility] Additional Notes 15-20 Kcal/Kg ABW (70-80% of EEN). Protein: 1.2-2 g/Kg; 83-138 g/ day. Fluids: 1 ml/Kcal, or as per MD. Nutrition Intervention Change Diet Order: Continue modified Cardiac Consistent Carbohydrates Diet -chopped meats-. Add Supplement/Snack (indicate name/kcal Start 8 fl oz Ensure Clear; /protein ) TID. Provides kCal: 720 Provides Protein (gm) 24 Goal #1 Compensate, through dietary supplementation, for possible poor or insufficient PO intake of meals during LOS. Goal #2 Facilitate PO intake of meals with mechanical modification during LOS. Follow-Up By: 12/11/21 Additional Comments Continue monitoring food tolerance, %PO intake of meals , and BM.
[2021-12-09] MEDS ORDERED: POTASSIUM CHLORIDE ER 20 MEQ TAB PO ONE (16:22)
[2021-12-10] MEDS: INSULIN LISPRO 100 UNIT/ML SUB-Q SCH ×5 (04:17→21:53)
[2021-12-10] MEDS: LORazepam 2 MG/ML VIAL IV SCH ×5 (04:18→21:42)
[2021-12-10] MEDS: POTASSIUM CHLORIDE 10 MEQ 10 MEQ/100 ML BAG IV SCH ×6 (04:28→07:46)
--- NOTE | 2021-12-10 08:09 | Progress Note ---
Assessment and Plan Assessment and plan: #Acute metabolic encephalopathy -CT head negative for acute findings; MRI unable to be performed secondary to agitation -Etiology unknown, mentation improves as sodium level improves -Delirium precautions -Avoid sedation #Acute hypoxic respiratory failure-improving #COVID-19 pneumonia-stable -Patient currently on 2 L nasal cannula -O2 sats >92% x24hrs, will likely need home oxygen -Was not candidate for remdesivir due to initial ROSANA -s/p steroids x10 days -continue lovenox #Hypernatremia-resolved -Sodium 139, will discontinue D5W #Insulin-dependent type 2 diabetes -Continue SSI -Goal glucose 140-180 while inpatient #CAD #Chronic heart failure with reduced ejection fraction -TTE revealing EF of 35 to 40% #Bradycardia-improved -Cardiology following, assistance appreciated -Home beta-tee held #Hypertension -Blood pressure controlled, no meds while inpatient #ROSANA-resolved -Secondary to vasomotor nephropathy #UTI -Status post antibiotics -Urine culture shows 10-100 K Natalia species #Hypokalemia -We will continue to replete and monitor #Severe debility -Evaluated by PT and OT, recommendation for subacute rehab at discharge #Discharge planning -Pending SNF placement once medically stable History Interval history: No acute events overnight. Patient continues to remove nasal cannula. Currently only requiring 2 L/min. Denies shortness of breath, pain or discomfort. Hospitalist Physical - Physical exam Narrative exam: GENERAL: Well-developed well-nourished. In no acute distress. HEENT: Nasal cannula 2 L NECK: Supple. CHEST/LUNGS: CTAB on room air HEART/CARDIOVASCULAR: RRR. No murmur, rubs or gallops appreciated. ABDOMEN: +BS. NT/ND. MUSCULOSKELETAL: No joint effusion EXTREMITIES: No cyanosis, clubbing or edema. PSYCH: Alert to self. - Constitutional Vitals: Temp Pulse Resp BP Pulse Ox 97.6 F 83 20 103/77 99 12/10/21 04:57 12/10/21 04:57 12/10/21 04:57 12/10/21 04:57 12/10/21 04:57 General appearance: Present: no acute distress, cachectic Results - Labs CBC & Chem 7: 12/04/21 07:17 12/10/21 08:04 Labs: Laboratory Last Values WBC 5.5 K/mm3 (4.5-11.0) 12/04/21 07:17 RBC 3.52 M/mm3 (3.65-5.03) L 12/04/21 07:17 Hgb 10.4 gm/dl (11.8-15.2) L 12/04/21 07:17 Hct 33.6 % (35.5-45.6) L 12/04/21 07:17 MCV 95 fl (84-94) H 12/04/21 07:17 MCH 30 pg (28-32) 12/04/21 07:17 MCHC 31 % (32-34) L 12/04/21 07:17 RDW 15.7 % (13.2-15.2) H 12/04/21 07:17 Plt Count 284 K/mm3 (140-440) 12/04/21 07:17 Lymph % (Auto) 17.8 % (13.4-35.0) 12/04/21 07:17 [facility] % (Auto) 14.7 % (0.0-7.3) H 12/04/21 07:17 Eos % (Auto) 0.6 % (0.0-4.3) 12/04/21 07:17 Baso % (Auto) 0.4 % (0.0-1.8) 12/04/21 07:17 Lymph # (Auto) 1.0 K/mm3 (1.2-5.4) L 12/04/21 07:17 [facility] # (Auto) 0.8 K/mm3 (0.0-0.8) 12/04/21 07:17 Eos # (Auto) 0.0 K/mm3 (0.0-0.4) 12/04/21 07:17 Baso # (Auto) 0.0 K/mm3 (0.0-0.1) 12/04/21 07:17 Add Manual Diff Complete 11/21/21 19:36 Total Counted 100 11/21/21 19:36 Seg Neutrophils % 66.5 % (40.0-70.0) 12/04/21 07:17 Seg Neuts % (Manual) 79.0 % (40.0-70.0) H 11/21/21 19:36 Lymphocytes % (Manual) 10.0 % (13.4-35.0) L 11/21/21 19:36 Monocytes % (Manual) 8.0 % (0.0-7.3) H 11/21/21 19:36 Basophils % (Manual) 3.0 % (0.0-1.8) H 11/21/21 19:36 Nucleated RBC % Not Reportable 11/21/21 19:36 Seg Neutrophils # 3.6 K/mm3 (1.8-7.7) 12/04/21 07:17 Seg Neutrophils # Man 5.3 K/mm3 (1.8-7.7) 11/21/21 19:36 Band Neutrophils # 0.0 K/mm3 11/21/21 19:36 Lymphocytes # (Manual) 0.7 K/mm3 (1.2-5.4) L 11/21/21 19:36 Abs React Lymphs (Man) 0.0 K/mm3 11/21/21 19:36 Monocytes # (Manual) 0.5 K/mm3 (0.0-0.8) 11/21/21 19:36 Eosinophils # (Manual) 0.0 K/mm3 (0.0-0.4) 11/21/21 19:36 Basophils # (Manual) 0.2 K/mm3 (0.0-0.1) H 11/21/21 19:36 Metamyelocytes # 0.0 K/mm3 11/21/21 19:36 Myelocytes # 0.0 K/mm3 11/21/21 19:36 Promyelocytes # 0.0 K/mm3 11/21/21 19:36 Blast Cells # 0.0 K/mm3 11/21/21 19:36 WBC Morphology Not Reportable 11/21/21 19:36 Hypersegmented Neuts Not Reportable 11/21/21 19:36 Hyposegmented Neuts Not Reportable 11/21/21 19:36 Hypogranular Neuts Not Reportable 11/21/21 19:36 Smudge Cells Not Reportable 11/21/21 19:36 Toxic Granulation Not Reportable 11/21/21 19:36 Toxic Vacuolation Not Reportable 11/21/21 19:36 Dohle Bodies Not Reportable 11/21/21 19:36 Pelger-Huet Anomaly Not Reportable 11/21/21 19:36 Luan Rods Not Reportable 11/21/21 19:36 Platelet Estimate Consistent w auto 11/21/21 19:36 Clumped Platelets Not Reportable 11/21/21 19:36 Plt Clumps, EDTA Not Reportable 11/21/21 19:36 Large Platelets Not Reportable 11/21/21 19:36 Giant Platelets Not Reportable 11/21/21 19:36 Platelet Satelliting Not Reportable 11/21/21 19:36 Plt Morphology Comment Not Reportable 11/21/21 19:36 RBC Morphology Normal 11/21/21 19:36 Dimorphic RBCs Not Reportable 11/21/21 19:36 Polychromasia Not Reportable 11/21/21 19:36 Hypochromasia Not Reportable 11/21/21 19:36 Poikilocytosis Not Reportable 11/21/21 19:36 Anisocytosis Not Reportable 11/21/21 19:36 Microcytosis Not Reportable 11/21/21 19:36 Macrocytosis Not Reportable 11/21/21 19:36 Spherocytes Not Reportable 11/21/21 19:36 Pappenheimer Bodies Not Reportable 11/21/21 19:36 Sickle Cells Not Reportable 11/21/21 19:36 Target Cells Not Reportable 11/21/21 19:36 Tear Drop Cells Not Reportable 11/21/21 19:36 Ovalocytes Not Reportable 11/21/21 19:36 Helmet Cells Not Reportable 11/21/21 19:36 [place] Bodies Not Reportable 11/21/21 19:36 [place] Rings Not Reportable 11/21/21 19:36 Star Cells Not Reportable 11/21/21 19:36 Bite Cells Not Reportable 11/21/21 19:36 Crenated Cell Not Reportable 11/21/21 19:36 Elliptocytes Not Reportable 11/21/21 19:36 Acanthocytes (Spur) Not Reportable 11/21/21 19:36 Rouleaux Not Reportable 11/21/21 19:36 Hemoglobin C Crystals Not Reportable 11/21/21 19:36 Schistocytes Not Reportable 11/21/21 19:36 Malaria parasites Not Reportable 11/21/21 19:36 Kalia Bodies Not Reportable 11/21/21 19:36 Hem Pathologist Commnt No 11/21/21 19:36 D-Dimer 1279.46 ng/mlDDU (0-234) H 11/26/21 16:44 Sodium 147 mmol/L (137-145) H D 12/09/21 07:05 Potassium 3.3 mmol/L (3.6-5.0) L 12/09/21 07:05 Chloride 114.3 mmol/L (98-107) H 12/09/21 07:05 Carbon Dioxide 26 mmol/L (22-30) 12/09/21 07:05 Anion Gap 10 mmol/L 12/09/21 07:05 BUN 10 mg/dL (9-20) 12/09/21 07:05 Creatinine 1.1 mg/dL (0.8-1.3) 12/09/21 07:05 Estimated GFR > 60 ml/min 12/09/21 07:05 BUN/Creatinine Ratio 9 % 12/09/21 07:05 Glucose 249 mg/dL (75-100) H 12/09/21 07:05 POC Glucose 143 mg/dL (70-105) H 12/10/21 07:57 Osmolality 316 Mosm/kg 11/27/21 Unknown Uric Acid 9.8 mg/dL (3.5-7.6) H 11/27/21 Unknown Calcium 7.6 mg/dL (8.4-10.2) L 12/09/21 07:05 Phosphorus 1.90 mg/dL (2.5-4.5) L 12/03/21 04:00 Magnesium 2.30 mg/dL (1.7-2.3) 12/07/21 05:36 Total Bilirubin 0.40 mg/dL (0.1-1.2) 11/28/21 06:47 AST 22 units/L (5-40) 11/28/21 06:47 ALT 28 units/L (7-56) 11/28/21 06:47 Alkaline Phosphatase 197 units/L (35-129) H 11/28/21 06:47 Ammonia 12.0 umol/L (25-60) L 11/28/21 12:59 C-Reactive Protein 13.00 mg/dL (0.00-1.30) H 11/27/21 05:17 Total Protein 5.6 g/dL (6.3-8.2) L 11/28/21 06:47 Albumin 2.5 g/dL (3.9-5) L 11/28/21 06:47 Albumin/Globulin Ratio 0.8 % 11/28/21 06:47 Procalcitonin 3.10 ng/mL (<0.15) 11/26/21 08:21 TSH 4.800 mlU/mL (0.270-4.200) H 11/21/21 19:37 Urine Color Kimberli (Yellow) 11/27/21 Unknown Urine Turbidity Slightly-cloudy (Clear) 11/27/21 Unknown Urine pH 5.0 (5.0-7.0) 11/27/21 Unknown Ur Specific [place] 1.013 (1.003-1.030) 11/27/21 Unknown Urine Protein <15 mg/dl mg/dL (Negative) 11/27/21 Unknown Urine Glucose (UA) 50 mg/dL (Negative) 11/27/21 Unknown Urine Ketones Tr mg/dL (Negative) 11/27/21 Unknown Urine Blood Neg (Negative) 11/27/21 Unknown Urine Nitrite Neg (Negative) 11/27/21 Unknown Urine Bilirubin Neg (Negative) 11/27/21 Unknown Urine Urobilinogen < 2.0 mg/dL (<2.0) 11/27/21 Unknown Ur Leukocyte Esterase Neg (Negative) 11/27/21 Unknown Urine WBC (Auto) 13.0 /HPF (0.0-6.0) H 11/27/21 Unknown Urine RBC (Auto) 2.0 /HPF (0.0-6.0) 11/27/21 Unknown U Epithel Cells (Auto) 1.0 /HPF (0-13.0) 11/27/21 Unknown Urine Bacteria (Auto) 1+ /HPF (Negative) 11/27/21 Unknown Urine Mucus Few /HPF 11/27/21 Unknown Urine Yeast (Budding) 2+ /HPF 11/27/21 Unknown Urine Creatinine 80.9 mg/dL (0.1-20.0) H 11/27/21 Unknown Urine Sodium 36 mmol/L 11/27/21 Unknown Urine Total Protein 43 mg/dL (5-11.8) H 11/27/21 Unknown Coronavirus (PCR) Positive (Negative) A 11/23/21 Unknown Fritz/IV: Voiding Method Condom Catheter Active Medications - Current Medications Current Medications: Generic Name Dose Route Start Last Admin Trade Name Freq PRN Reason Stop Dose Admin Acetaminophen 650 mg 11/22/21 05:48 Acetaminophen 325 Mg Tab PO Q4H PRN Pain MILD(1-3)/Fever >100.5/BRODY Albuterol 2.5 mg 11/25/21 12:00 Albuterol 2.5 Mg/3 Ml Nebu IH Q4HRT PRN Shortness Of Breath Dextrose 50 ml 12/02/21 15:42 Dextrose 50% In Water (25gm) 50 Ml Syringe IV Q30MIN PRN Hypoglycemia Protocol Docusate Sodium 100 mg 11/25/21 22:00 12/09/21 22:00 Docusate Sodium 100 Mg Cap PO 100 mg BID NANDINI Administration Enoxaparin Sodium 70 mg 11/26/21 12:30 12/09/21 22:02 Enoxaparin 80 Mg/0.8 Ml Inj SUB-Q 70 mg Q12HR NANDINI Administration Haloperidol Lactate 5 mg 12/07/21 15:34 12/08/21 10:42 Haloperidol Lactate 5 Mg/1 Ml Inj IM 5 mg Q6H PRN Administration Agitation Hydromorphone HCl 0.5 mg 11/22/21 05:48 11/23/21 06:02 Hydromorphone 1 Mg/1 Ml Inj IV 0.5 mg Q3H PRN Administration Pain , Severe (7-10) Dextrose 1,000 mls @ 150 mls/hr 12/08/21 12:00 12/09/21 10:36 D5w IV 150 mls/hr DIRECT NANDINI Administration Potassium Chloride 10 meq in 100 mls @ 100 mls/hr 12/10/21 04:30 12/10/21 06:39 Kcl 10meq/100ml IV 12/10/21 08:29 100 mls/hr Q1H NANDINI Administration Insulin Human Lispro 0 unit 11/22/21 07:30 12/10/21 04:17 Insulin Lispro 100 Unit/Ml SUB-Q Not Given ACHS NANDINI Protocol Lorazepam 2 mg 12/08/21 10:00 12/10/21 05:38 Lorazepam 2 Mg/Ml Vial IV Not Given Q4HR NANDINI Morphine Sulfate 2 mg 11/22/21 05:48 12/03/21 21:38 Morphine 2 Mg/1 Ml Inj IV 2 mg Q4H PRN Administration Pain, Moderate (4-6) Ondansetron HCl 4 mg 11/22/21 05:48 12/03/21 21:38 Ondansetron 4 Mg/2 Ml Inj IV 4 mg Q8H PRN Administration Nausea And Vomiting Sodium Chloride 10 ml 11/22/21 10:00 12/09/21 22:03 Sodium Chloride 0.9% 10 Ml Flush Syringe IV 10 ml BID NANDINI Administration Sodium Chloride 10 ml 11/22/21 05:48 Sodium Chloride 0.9% 10 Ml Flush Syringe IV PRN PRN LINE FLUSH Nutrition/Malnutrition Assess - Dietary Evaluation Nutrition/Malnutrition Findings: Nutrition Notes Start: 11/22/21 14:16 Freq: Status: Active Protocol: Document 12/08/21 11:17 NICKO (Rec: 12/08/21 11:58 NICKO [id number]) Nutrition Notes Initial or Follow up Reassessment Current Diagnosis Acute Kidney Injury,COPD, Coronary Artery Disease, Diabetes,Respiratory Failure Other Pertinent Diagnosis COVID-19, Pneumonia, Metabolic encephalopathy, Cardiomyopathy, HFrEF. Current Diet Cardiac/Consistent Carbohydrates Diet (since B ), D Suppl (D 12/08). Labs/Tests 12/08: Na 158, K 3.4, Cl 122.1 , Crea 1.4, Glu 107, Ca 8.1. Pertinent Medications 12/08: KCl 40 mEq, others nutritionally unremarkable. Height 5 ft 11 in Weight 68.8 kg [place] Body Weight (kg) 78.18 BMI 21.1 Weight change and time frame No body weight change reported . Weight Status Underweight Subjective/Other Information RD consult for routine F/U on %PO intake of meals. Pt's PO intake has been Neglible (0%) since arrival, according to ADL notes. I spoke with RN and she agreed to try with supplements again , because Pt is only drinking juices and water, but not eating anything solid. I'm prescribing Dietary supplements TID. Pt has missing teeth, according to Physical Assessment History notes. Percent of energy/protein needs met: Prescribed Cardiac/Consistent Carbohydrates Diet provides for energy/protein needs (1, 977 Kcal/86 g) during LOS; additionally, Dietary Supplements will compensate for possible Poor PO intake of meals with 720 Kcal and 24 g of protein. Burn Absent Trauma Absent GI Symptoms None Skin Integrity/Comment Clear, warm, dry. Current % PO Negligible Minimum of two criteria No #2 Nutrition Diagnosis Biting/Chewing (masticatory) difficulty Etiology Unspecified. As Evidenced by Signs and Symptoms Pt has missing teeth, according to Physical Assessment History notes. #1 Nutrition Diagnosis Underweight Comments: Pt's PO intake of meals and ONS has been neglible (0%), according to ADL notes. Diagnosis Progress(for reassessment Continues documentation) Is patient on ventilator? No Is Patient Ambulatory and/or Out of Bed Yes REE-([facility]-ambulatory/OOB) [ 1839.669 [id number]] Calculation Used for Recommendations [facility] Additional Notes 15-20 Kcal/Kg ABW (70-80% of EEN). Protein: 1.2-2 g/Kg; 83-138 g/ day. Fluids: 1 ml/Kcal, or as per MD. Nutrition Intervention Change Diet Order: Continue modified Cardiac Consistent Carbohydrates Diet -chopped meats-. Add Supplement/Snack (indicate name/kcal Start 8 fl oz Ensure Clear; /protein ) TID. Provides kCal: 720 Provides Protein (gm) 24 Goal #1 Compensate, through dietary supplementation, for possible poor or insufficient PO intake of meals during LOS. Goal #2 Facilitate PO intake of meals with mechanical modification during LOS. Follow-Up By: 12/11/21 Additional Comments Continue monitoring food tolerance, %PO intake of meals , and BM.
[2021-12-10 09:27] LABS: BUN/Creatinine Ratio 8; Blood Urea Nitrogen 9 mg/dL (9-20); Hemolysis Index 11
--- NOTE | 2021-12-10 10:06 | Progress Note ---
Assessment and Plan Impression * Nonoliguric acute kidney injury secondary to prerenal azotemia (FeNa 0.5%) --Baseline SCr 1.3mg/dL * Acute hypoxic respiratory failure secondary to COVID 19 PNA * Severe COVID-19 pneumonia * Hypernatremia * Hypokalemia * Acute encephalopathy * Cardiomyopathy - EF 35% * Anemia * Urinary tract infection - Klebsiella pneumonia * Mild left hydronephrosis Recommendations * Renal function now at baseline. Na is trending down * Continue IVF - currently receiving D5W * Continue to hold MIREYA inhibitor/ARB at this time * Management of COVID-19 PNA per ID and primary team * Abx per ID * Maintain MAP >65 * Avoid potential nephrotoxins * Monitor lytes, fluid balance closely * Strict I/O * Will follow peripherally Subjective Date of service: 12/10/21 Principal diagnosis: Acute encephalopathy, Acute resp failure, Covid PNA, CMP, chronic HFrEF Interval history: Chart, vitals, labs reviewed. Objective - Exam Narrative Exam: Exam deferred, primary team exam noted - Vital Signs Vital signs: Vital Signs - 12hr 12/09/21 12/10/21 22:31 04:57 Temperature 99.2 F 97.6 F Pulse Rate 64 83 Respiratory 18 20 Rate Blood Pressure 114/69 103/77 O2 Sat by Pulse 98 99 Oximetry - Lab 12/04/21 07:17 12/10/21 08:04 Most recent lab results Calcium 8.0 mg/dL (8.4-10.2) L 12/10/21 08:04 Phosphorus 1.90 mg/dL (2.5-4.5) L 12/03/21 04:00 Magnesium 2.30 mg/dL (1.7-2.3) 12/07/21 05:36 Urine Creatinine 80.9 mg/dL (0.1-20.0) H 11/27/21 Unknown Urine Sodium 36 mmol/L 11/27/21 Unknown Urine Total Protein 43 mg/dL (5-11.8) H 11/27/21 Unknown Medications & Allergies - Medications Allergies/Adverse Reactions: Allergies No Known Allergies Allergy (Verified 11/22/21 05:55) Home Medications: Home Medications Medication Instructions Recorded Confirmed Last Taken Type Furosemide [Lasix TAB] 80 mg PO TID 11/24/21 11/24/21 Unknown History Gabapentin [Neurontin] 300 mg PO BID 11/24/21 11/27/21 11/19/21 09:12 History 300 mg Sacubitril/Valsartan [Entresto 1 tab PO BID 11/24/21 11/27/21 11/19/21 09:12 History 49-51 mg] 1 tab Spironolactone [Aldactone] 25 mg PO QDAY 11/24/21 11/27/21 11/19/21 09:12 History 25 mg Tamsulosin [Flomax] 0.4 mg PO QDAY 11/24/21 11/27/21 11/18/21 22:02 History 0.4 mg carvediloL [Coreg] 6.25 mg PO BID 11/24/21 11/27/21 11/19/21 09:12 History 6.25mg AtorvaSTATin [Lipitor] 40 mg PO QHS 11/27/21 11/27/21 11/19/21 09:12 History 40 mg Insulin Glargine,Hum.rec.anlog 12 unit SQ QHS 11/27/21 11/27/21 11/18/21 22:02 History [Lantus Solostar] 12 units Insulin Lispro [Admelog] 1 - 12 unit SQ TIDAC 11/27/21 11/27/21 11/19/21 08:32 History 6 units Insulin Lispro [Admelog] 4 unit SQ TID 11/27/21 11/27/21 11/19/21 08:33 History 4 units oxyCODONE /ACETAMINOPHEN [Percocet 1 tab PO Q6HR PRN 11/27/21 11/27/21 11/19/21 03:57 History 5/325] 1 tab Active Medications: Generic Name Dose Route Start Last Admin Trade Name Freq PRN Reason Stop Dose Admin Acetaminophen 650 mg 11/22/21 05:48 Acetaminophen 325 Mg Tab PO Q4H PRN Pain MILD(1-3)/Fever >100.5/BRODY Albuterol 2.5 mg 11/25/21 12:00 Albuterol 2.5 Mg/3 Ml Nebu IH Q4HRT PRN Shortness Of Breath Dextrose 50 ml 12/02/21 15:42 Dextrose 50% In Water (25gm) 50 Ml Syringe IV Q30MIN PRN Hypoglycemia Protocol Docusate Sodium 100 mg 11/25/21 22:00 12/09/21 22:00 Docusate Sodium 100 Mg Cap PO 100 mg BID NANDINI Administration Enoxaparin Sodium 70 mg 11/26/21 12:30 12/09/21 22:02 Enoxaparin 80 Mg/0.8 Ml Inj SUB-Q 70 mg Q12HR NANDINI Administration Haloperidol Lactate 5 mg 12/07/21 15:34 12/08/21 10:42 Haloperidol Lactate 5 Mg/1 Ml Inj IM 5 mg Q6H PRN Administration Agitation Hydromorphone HCl 0.5 mg 11/22/21 05:48 11/23/21 06:02 Hydromorphone 1 Mg/1 Ml Inj IV 0.5 mg Q3H PRN Administration Pain , Severe (7-10) Dextrose 1,000 mls @ 150 mls/hr 12/08/21 12:00 12/09/21 10:36 D5w IV 150 mls/hr DIRECT NANDINI Administration Insulin Human Lispro 0 unit 11/22/21 07:30 12/10/21 09:13 Insulin Lispro 100 Unit/Ml SUB-Q Not Given ACHS [facility] Protocol Lorazepam 2 mg 12/08/21 10:00 12/10/21 05:38 Lorazepam 2 Mg/Ml Vial IV Not Given Q4HR [facility] Morphine Sulfate 2 mg 11/22/21 05:48 12/03/21 21:38 Morphine 2 Mg/1 Ml Inj IV 2 mg Q4H PRN Administration Pain, Moderate (4-6) Ondansetron HCl 4 mg 11/22/21 05:48 12/03/21 21:38 Ondansetron 4 Mg/2 Ml Inj IV 4 mg Q8H PRN Administration Nausea And Vomiting Sodium Chloride 10 ml 11/22/21 10:00 12/09/21 22:03 Sodium Chloride 0.9% 10 Ml Flush Syringe IV 10 ml BID NANDINI Administration Sodium Chloride 10 ml 11/22/21 05:48 Sodium Chloride 0.9% 10 Ml Flush Syringe IV PRN PRN LINE FLUSH
[2021-12-10] MEDS: ENOXAPARIN 80 MG/0.8 ML INJ SUB-Q SCH ×2 (12:43→21:42)
[2021-12-10] MEDS: DOCUSATE SODIUM 100 MG CAP PO SCH ×3 (12:49→21:41)
[2021-12-11] MEDS: LORazepam 2 MG/ML VIAL IV SCH ×5 (01:23→18:56)
--- NOTE | 2021-12-11 08:22 | Progress Note ---
Assessment and Plan Assessment and plan: #Acute metabolic encephalopathy -CT head negative for acute findings; MRI unable to be performed secondary to agitation -Etiology unknown, mentation improves as sodium level improves -Delirium precautions -Avoid sedation #Poor oral intake -patient noted to have poor oral intake -ST eval ordered; may possibly need PEG tube placement; attempted to contact his Mrs. Tatyana Pena today -dobhoff placed for TF in meantime #Acute hypoxic respiratory failure-improving #COVID-19 pneumonia-stable -Patient currently on 2 L nasal cannula -O2 sats >92% x24hrs, will likely need home oxygen -Was not candidate for remdesivir due to initial ROSANA -s/p steroids x10 days -continue lovenox #Insulin-dependent type 2 diabetes -Continue SSI -Goal glucose 140-180 while inpatient #CAD #Chronic heart failure with reduced ejection fraction -TTE revealing EF of 35 to 40% #Bradycardia-improved -Cardiology following, assistance appreciated -Home beta-tee held #Hypertension -Blood pressure controlled, no meds while inpatient #ROSANA-resolved -Secondary to vasomotor nephropathy #UTI -Status post antibiotics -Urine culture shows 10-100 K Natalia species #Hypokalemia -We will continue to replete and monitor #Hypernatremia-resolved #Severe debility -Evaluated by PT and OT, recommendation for subacute rehab at discharge #Discharge planning -Pending SNF and possible PEG placement Disposition Plan: pending SNF placement History Interval history: No acute events overnight. Currently only requiring 2 L/min. Denies shortness of breath, pain or discomfort. Noted to have poor oral intake by nurses, will place dobhoff for tube feeds. Hospitalist Physical - Physical exam Narrative exam: GENERAL: Well-developed well-nourished. In no acute distress. HEENT: Nasal cannula 2 L NECK: Supple. CHEST/LUNGS: CTAB on room air HEART/CARDIOVASCULAR: RRR. No murmur, rubs or gallops appreciated. ABDOMEN: +BS. NT/ND. MUSCULOSKELETAL: No joint effusion EXTREMITIES: No cyanosis, clubbing or edema. PSYCH: Alert to self. - Constitutional Vitals: Temp Pulse Resp BP Pulse Ox 98.1 F 77 18 148/78 100 12/11/21 05:13 12/11/21 05:13 12/11/21 05:13 12/11/21 05:13 12/11/21 05:13 General appearance: Present: no acute distress, cachectic Results - Labs CBC & Chem 7: 12/04/21 07:17 12/10/21 08:04 Labs: Laboratory Last Values WBC 5.5 K/mm3 (4.5-11.0) 12/04/21 07:17 RBC 3.52 M/mm3 (3.65-5.03) L 12/04/21 07:17 Hgb 10.4 gm/dl (11.8-15.2) L 12/04/21 07:17 Hct 33.6 % (35.5-45.6) L 12/04/21 07:17 MCV 95 fl (84-94) H 12/04/21 07:17 MCH 30 pg (28-32) 12/04/21 07:17 MCHC 31 % (32-34) L 12/04/21 07:17 RDW 15.7 % (13.2-15.2) H 12/04/21 07:17 Plt Count 284 K/mm3 (140-440) 12/04/21 07:17 Lymph % (Auto) 17.8 % (13.4-35.0) 12/04/21 07:17 Kimball % (Auto) 14.7 % (0.0-7.3) H 12/04/21 07:17 Eos % (Auto) 0.6 % (0.0-4.3) 12/04/21 07:17 Baso % (Auto) 0.4 % (0.0-1.8) 12/04/21 07:17 Lymph # (Auto) 1.0 K/mm3 (1.2-5.4) L 12/04/21 07:17 Kimball # (Auto) 0.8 K/mm3 (0.0-0.8) 12/04/21 07:17 Eos # (Auto) 0.0 K/mm3 (0.0-0.4) 12/04/21 07:17 Baso # (Auto) 0.0 K/mm3 (0.0-0.1) 12/04/21 07:17 Add Manual Diff Complete 11/21/21 19:36 Total Counted 100 11/21/21 19:36 Seg Neutrophils % 66.5 % (40.0-70.0) 12/04/21 07:17 Seg Neuts % (Manual) 79.0 % (40.0-70.0) H 11/21/21 19:36 Lymphocytes % (Manual) 10.0 % (13.4-35.0) L 11/21/21 19:36 Monocytes % (Manual) 8.0 % (0.0-7.3) H 11/21/21 19:36 Basophils % (Manual) 3.0 % (0.0-1.8) H 11/21/21 19:36 Nucleated RBC % Not Reportable 11/21/21 19:36 Seg Neutrophils # 3.6 K/mm3 (1.8-7.7) 12/04/21 07:17 Seg Neutrophils # Man 5.3 K/mm3 (1.8-7.7) 11/21/21 19:36 Band Neutrophils # 0.0 K/mm3 11/21/21 19:36 Lymphocytes # (Manual) 0.7 K/mm3 (1.2-5.4) L 11/21/21 19:36 Abs React Lymphs (Man) 0.0 K/mm3 11/21/21 19:36 Monocytes # (Manual) 0.5 K/mm3 (0.0-0.8) 11/21/21 19:36 Eosinophils # (Manual) 0.0 K/mm3 (0.0-0.4) 11/21/21 19:36 Basophils # (Manual) 0.2 K/mm3 (0.0-0.1) H 11/21/21 19:36 Metamyelocytes # 0.0 K/mm3 11/21/21 19:36 Myelocytes # 0.0 K/mm3 11/21/21 19:36 Promyelocytes # 0.0 K/mm3 11/21/21 19:36 Blast Cells # 0.0 K/mm3 11/21/21 19:36 WBC Morphology Not Reportable 11/21/21 19:36 Hypersegmented Neuts Not Reportable 11/21/21 19:36 Hyposegmented Neuts Not Reportable 11/21/21 19:36 Hypogranular Neuts Not Reportable 11/21/21 19:36 Smudge Cells Not Reportable 11/21/21 19:36 Toxic Granulation Not Reportable 11/21/21 19:36 Toxic Vacuolation Not Reportable 11/21/21 19:36 Dohle Bodies Not Reportable 11/21/21 19:36 Pelger-Huet Anomaly Not Reportable 11/21/21 19:36 Luan Rods Not Reportable 11/21/21 19:36 Platelet Estimate Consistent w auto 11/21/21 19:36 Clumped Platelets Not Reportable 11/21/21 19:36 Plt Clumps, EDTA Not Reportable 11/21/21 19:36 Large Platelets Not Reportable 11/21/21 19:36 Giant Platelets Not Reportable 11/21/21 19:36 Platelet Satelliting Not Reportable 11/21/21 19:36 Plt Morphology Comment Not Reportable 11/21/21 19:36 RBC Morphology Normal 11/21/21 19:36 Dimorphic RBCs Not Reportable 11/21/21 19:36 Polychromasia Not Reportable 11/21/21 19:36 Hypochromasia Not Reportable 11/21/21 19:36 Poikilocytosis Not Reportable 11/21/21 19:36 Anisocytosis Not Reportable 11/21/21 19:36 Microcytosis Not Reportable 11/21/21 19:36 Macrocytosis Not Reportable 11/21/21 19:36 Spherocytes Not Reportable 11/21/21 19:36 Pappenheimer Bodies Not Reportable 11/21/21 19:36 Sickle Cells Not Reportable 11/21/21 19:36 Target Cells Not Reportable 11/21/21 19:36 Tear Drop Cells Not Reportable 11/21/21 19:36 Ovalocytes Not Reportable 11/21/21 19:36 Helmet Cells Not Reportable 11/21/21 19:36 [place] Bodies Not Reportable 11/21/21 19:36 Kimberly Rings Not Reportable 11/21/21 19:36 Hoffman Cells Not Reportable 11/21/21 19:36 Bite Cells Not Reportable 11/21/21 19:36 Crenated Cell Not Reportable 11/21/21 19:36 Elliptocytes Not Reportable 11/21/21 19:36 Acanthocytes (Spur) Not Reportable 11/21/21 19:36 Rouleaux Not Reportable 11/21/21 19:36 Hemoglobin C Crystals Not Reportable 11/21/21 19:36 Schistocytes Not Reportable 11/21/21 19:36 Malaria parasites Not Reportable 11/21/21 19:36 Kalia Bodies Not Reportable 11/21/21 19:36 Hem Pathologist Commnt No 11/21/21 19:36 D-Dimer 1279.46 ng/mlDDU (0-234) H 11/26/21 16:44 Sodium 139 mmol/L (137-145) D 12/10/21 08:04 Potassium 4.1 mmol/L (3.6-5.0) D 12/10/21 08:04 Chloride 110.0 mmol/L (98-107) H 12/10/21 08:04 Carbon Dioxide 22 mmol/L (22-30) 12/10/21 08:04 Anion Gap 11 mmol/L 12/10/21 08:04 BUN 9 mg/dL (9-20) 12/10/21 08:04 Creatinine 1.1 mg/dL (0.8-1.3) 12/10/21 08:04 Estimated GFR > 60 ml/min 12/10/21 08:04 BUN/Creatinine Ratio 8 % 12/10/21 08:04 Glucose 145 mg/dL (75-100) H 12/10/21 08:04 POC Glucose 98 mg/dL (70-105) 12/10/21 21:33 Osmolality 316 Mosm/kg 11/27/21 Unknown Uric Acid 9.8 mg/dL (3.5-7.6) H 11/27/21 Unknown Calcium 8.0 mg/dL (8.4-10.2) L 12/10/21 08:04 Phosphorus 1.90 mg/dL (2.5-4.5) L 12/03/21 04:00 Magnesium 2.30 mg/dL (1.7-2.3) 12/07/21 05:36 Total Bilirubin 0.40 mg/dL (0.1-1.2) 11/28/21 06:47 AST 22 units/L (5-40) 11/28/21 06:47 ALT 28 units/L (7-56) 11/28/21 06:47 Alkaline Phosphatase 197 units/L (35-129) H 11/28/21 06:47 Ammonia 12.0 umol/L (25-60) L 11/28/21 12:59 C-Reactive Protein 13.00 mg/dL (0.00-1.30) H 11/27/21 05:17 Total Protein 5.6 g/dL (6.3-8.2) L 11/28/21 06:47 Albumin 2.5 g/dL (3.9-5) L 11/28/21 06:47 Albumin/Globulin Ratio 0.8 % 11/28/21 06:47 Procalcitonin 3.10 ng/mL (<0.15) 11/26/21 08:21 TSH 4.800 mlU/mL (0.270-4.200) H 11/21/21 19:37 Urine Color Kimberli (Yellow) 11/27/21 Unknown Urine Turbidity Slightly-cloudy (Clear) 11/27/21 Unknown Urine pH 5.0 (5.0-7.0) 11/27/21 Unknown Ur Specific [place] 1.013 (1.003-1.030) 11/27/21 Unknown Urine Protein <15 mg/dl mg/dL (Negative) 11/27/21 Unknown Urine Glucose (UA) 50 mg/dL (Negative) 11/27/21 Unknown Urine Ketones Tr mg/dL (Negative) 11/27/21 Unknown Urine Blood Neg (Negative) 11/27/21 Unknown Urine Nitrite Neg (Negative) 11/27/21 Unknown Urine Bilirubin Neg (Negative) 11/27/21 Unknown Urine Urobilinogen < 2.0 mg/dL (<2.0) 11/27/21 Unknown Ur Leukocyte Esterase Neg (Negative) 11/27/21 Unknown Urine WBC (Auto) 13.0 /HPF (0.0-6.0) H 11/27/21 Unknown Urine RBC (Auto) 2.0 /HPF (0.0-6.0) 11/27/21 Unknown U Epithel Cells (Auto) 1.0 /HPF (0-13.0) 11/27/21 Unknown Urine Bacteria (Auto) 1+ /HPF (Negative) 11/27/21 Unknown Urine Mucus Few /HPF 11/27/21 Unknown Urine Yeast (Budding) 2+ /HPF 11/27/21 Unknown Urine Creatinine 80.9 mg/dL (0.1-20.0) H 11/27/21 Unknown Urine Sodium 36 mmol/L 11/27/21 Unknown Urine Total Protein 43 mg/dL (5-11.8) H 11/27/21 Unknown Coronavirus (PCR) Positive (Negative) A 11/23/21 Unknown Fritz/IV: Voiding Method Incontinent Active Medications - Current Medications Current Medications: Generic Name Dose Route Start Last Admin Trade Name Freq PRN Reason Stop Dose Admin Acetaminophen 650 mg 11/22/21 05:48 Acetaminophen 325 Mg Tab PO Q4H PRN Pain MILD(1-3)/Fever >100.5/BRODY Albuterol 2.5 mg 11/25/21 12:00 Albuterol 2.5 Mg/3 Ml Nebu IH Q4HRT PRN Shortness Of Breath Dextrose 50 ml 12/02/21 15:42 Dextrose 50% In Water (25gm) 50 Ml Syringe IV Q30MIN PRN Hypoglycemia Protocol Docusate Sodium 100 mg 11/25/21 22:00 12/10/21 21:41 Docusate Sodium 100 Mg Cap PO 100 mg BID NANDINI Administration Enoxaparin Sodium 70 mg 11/26/21 12:30 12/10/21 21:42 Enoxaparin 80 Mg/0.8 Ml Inj SUB-Q 70 mg Q12HR NANDINI Administration Haloperidol Lactate 5 mg 12/07/21 15:34 12/08/21 10:42 Haloperidol Lactate 5 Mg/1 Ml Inj IM 5 mg Q6H PRN Administration Agitation Hydromorphone HCl 0.5 mg 11/22/21 05:48 11/23/21 06:02 Hydromorphone 1 Mg/1 Ml Inj IV 0.5 mg Q3H PRN Administration Pain , Severe (7-10) Insulin Human Lispro 0 unit 11/22/21 07:30 12/10/21 21:53 Insulin Lispro 100 Unit/Ml SUB-Q Not Given ACHS [facility] Protocol Lorazepam 2 mg 12/08/21 10:00 12/11/21 05:15 Lorazepam 2 Mg/Ml Vial IV 2 mg Q4HR NANDINI Administration Morphine Sulfate 2 mg 11/22/21 05:48 12/03/21 21:38 Morphine 2 Mg/1 Ml Inj IV 2 mg Q4H PRN Administration Pain, Moderate (4-6) Ondansetron HCl 4 mg 11/22/21 05:48 12/03/21 21:38 Ondansetron 4 Mg/2 Ml Inj IV 4 mg Q8H PRN Administration Nausea And Vomiting Sodium Chloride 10 ml 11/22/21 10:00 12/10/21 21:42 Sodium Chloride 0.9% 10 Ml Flush Syringe IV 10 ml BID NANDINI Administration Sodium Chloride 10 ml 11/22/21 05:48 Sodium Chloride 0.9% 10 Ml Flush Syringe IV PRN PRN LINE FLUSH Nutrition/Malnutrition Assess - Dietary Evaluation Nutrition/Malnutrition Findings: Nutrition Notes Start: 11/22/21 14:16 Freq: Status: Active Protocol: Document 12/08/21 11:17 NICKO (Rec: 12/08/21 11:58 NICKO [email or web address]) Nutrition Notes Initial or Follow up Reassessment Current Diagnosis Acute Kidney Injury,COPD, Coronary Artery Disease, Diabetes,Respiratory Failure Other Pertinent Diagnosis COVID-19, Pneumonia, Metabolic encephalopathy, Cardiomyopathy, HFrEF. Current Diet Cardiac/Consistent Carbohydrates Diet (since B ), D Suppl (D 12/08). Labs/Tests 12/08: Na 158, K 3.4, Cl 122.1 , Crea 1.4, Glu 107, Ca 8.1. Pertinent Medications 12/08: KCl 40 mEq, others nutritionally unremarkable. Height 5 ft 11 in Weight 68.8 kg [place] Body Weight (kg) 78.18 BMI 21.1 Weight change and time frame No body weight change reported . Weight Status Underweight Subjective/Other Information RD consult for routine F/U on %PO intake of meals. Pt's PO intake has been Neglible (0%) since arrival, according to ADL notes. I spoke with RN and she agreed to try with supplements again , because Pt is only drinking juices and water, but not eating anything solid. I'm prescribing Dietary supplements TID. Pt has missing teeth, according to Physical Assessment History notes. Percent of energy/protein needs met: Prescribed Cardiac/Consistent Carbohydrates Diet provides for energy/protein needs (1, 977 Kcal/86 g) during LOS; additionally, Dietary Supplements will compensate for possible Poor PO intake of meals with 720 Kcal and 24 g of protein. Burn Absent Trauma Absent GI Symptoms None Skin Integrity/Comment Clear, warm, dry. Current % PO Negligible Minimum of two criteria No #2 Nutrition Diagnosis Biting/Chewing (masticatory) difficulty Etiology Unspecified. As Evidenced by Signs and Symptoms Pt has missing teeth, according to Physical Assessment History notes. #1 Nutrition Diagnosis Underweight Comments: Pt's PO intake of meals and ONS has been neglible (0%), according to ADL notes. Diagnosis Progress(for reassessment Continues documentation) Is patient on ventilator? No Is Patient Ambulatory and/or Out of Bed Yes REE-([facility]-ambulatory/OOB) [ 1839.669 [id number]] Calculation Used for Recommendations [facility] Additional Notes 15-20 Kcal/Kg ABW (70-80% of EEN). Protein: 1.2-2 g/Kg; 83-138 g/ day. Fluids: 1 ml/Kcal, or as per MD. Nutrition Intervention Change Diet Order: Continue modified Cardiac Consistent Carbohydrates Diet -chopped meats-. Add Supplement/Snack (indicate name/kcal Start 8 fl oz Ensure Clear; /protein ) TID. Provides kCal: 720 Provides Protein (gm) 24 Goal #1 Compensate, through dietary supplementation, for possible poor or insufficient PO intake of meals during LOS. Goal #2 Facilitate PO intake of meals with mechanical modification during LOS. Follow-Up By: 12/11/21 Additional Comments Continue monitoring food tolerance, %PO intake of meals , and BM.
[2021-12-11] MEDS: INSULIN LISPRO 100 UNIT/ML SUB-Q SCH ×3 (08:59→18:56)
[2021-12-11] MEDS: ENOXAPARIN 80 MG/0.8 ML INJ SUB-Q SCH (08:59)
[2021-12-11] MEDS: DOCUSATE SODIUM 100 MG CAP PO SCH (09:00)
--- NOTE | 2021-12-11 11:30 | XRay Report ---
ABDOMEN 1 VIEW(S) 12/11/2021 10:21 AM INDICATION / CLINICAL INFORMATION: VERIFY PLACEMENT FOR FEEDING. COMPARISON: None available. FINDINGS: The tip of an esophagogastric tube projects over the fundus of the stomach. Signer Name: Arpit Branch MD Signed: 12/11/2021 11:25 AM Workstation Name: [employer]ake
--- NOTE | 2021-12-12 08:04 | Progress Note ---
Assessment and Plan Assessment and plan: #Acute metabolic encephalopathy -CT head negative for acute findings; MRI unable to be performed secondary to agitation -Etiology unknown, mentation improves as sodium level improves -Delirium precautions -Avoid sedation #Poor oral intake -patient noted to have poor oral intake -ST eval ordered; may possibly need PEG tube placement; will discuss with spouse -dobhoff placed for TF in meantime - evaluation #Acute hypoxic respiratory failure-improving #COVID-19 pneumonia-stable -Patient currently on RA -Was not candidate for remdesivir due to initial ROSANA -s/p steroids x10 days -continue lovenox #Insulin-dependent type 2 diabetes -Continue SSI -Goal glucose 140-180 while inpatient #CAD #Chronic heart failure with reduced ejection fraction -TTE revealing EF of 35 to 40% #Bradycardia-improved -Cardiology following, assistance appreciated -Home beta-tee held #Hypertension -Blood pressure controlled, no meds while inpatient #ROSANA-resolved -Secondary to vasomotor nephropathy #UTI -Status post antibiotics -Urine culture shows 10-100 K Natalia species #Hypokalemia -We will continue to replete and monitor #Hypernatremia-resolved #Severe debility -Evaluated by PT and OT, recommendation for subacute rehab at discharge #Discharge planning -Pending SNF and possible PEG placement Disposition Plan: Continue medical management History Interval history: No acute events overnight. Currently on room air. Responds to questions with "help me out". Dobbhoff in place. Hospitalist Physical - Physical exam Narrative exam: GENERAL: Well-developed well-nourished. In no acute distress. HEENT: +Dobbhoff CHEST/LUNGS: CTAB on room air HEART/CARDIOVASCULAR: RRR. No murmur, rubs or gallops appreciated. ABDOMEN: +BS. NT/ND. MUSCULOSKELETAL: No joint effusion EXTREMITIES: No cyanosis, clubbing or edema. PSYCH: Alert to self. - Constitutional Vitals: Temp Pulse Resp BP Pulse Ox 98.1 F 88 24 117/82 92 12/11/21 22:37 12/11/21 22:37 12/11/21 22:37 12/11/21 22:37 12/11/21 22:37 General appearance: Present: no acute distress, cachectic Results - Labs CBC & Chem 7: 12/04/21 07:17 12/12/21 07:13 Labs: Laboratory Last Values WBC 5.5 K/mm3 (4.5-11.0) 12/04/21 07:17 RBC 3.52 M/mm3 (3.65-5.03) L 12/04/21 07:17 Hgb 10.4 gm/dl (11.8-15.2) L 12/04/21 07:17 Hct 33.6 % (35.5-45.6) L 12/04/21 07:17 MCV 95 fl (84-94) H 12/04/21 07:17 MCH 30 pg (28-32) 12/04/21 07:17 MCHC 31 % (32-34) L 12/04/21 07:17 RDW 15.7 % (13.2-15.2) H 12/04/21 07:17 Plt Count 284 K/mm3 (140-440) 12/04/21 07:17 Lymph % (Auto) 17.8 % (13.4-35.0) 12/04/21 07:17 [place] % (Auto) 14.7 % (0.0-7.3) H 12/04/21 07:17 Eos % (Auto) 0.6 % (0.0-4.3) 12/04/21 07:17 Baso % (Auto) 0.4 % (0.0-1.8) 12/04/21 07:17 Lymph # (Auto) 1.0 K/mm3 (1.2-5.4) L 12/04/21 07:17 [place] # (Auto) 0.8 K/mm3 (0.0-0.8) 12/04/21 07:17 Eos # (Auto) 0.0 K/mm3 (0.0-0.4) 12/04/21 07:17 Baso # (Auto) 0.0 K/mm3 (0.0-0.1) 12/04/21 07:17 Add Manual Diff Complete 11/21/21 19:36 Total Counted 100 11/21/21 19:36 Seg Neutrophils % 66.5 % (40.0-70.0) 12/04/21 07:17 Seg Neuts % (Manual) 79.0 % (40.0-70.0) H 11/21/21 19:36 Lymphocytes % (Manual) 10.0 % (13.4-35.0) L 11/21/21 19:36 Monocytes % (Manual) 8.0 % (0.0-7.3) H 11/21/21 19:36 Basophils % (Manual) 3.0 % (0.0-1.8) H 11/21/21 19:36 Nucleated RBC % Not Reportable 11/21/21 19:36 Seg Neutrophils # 3.6 K/mm3 (1.8-7.7) 12/04/21 07:17 Seg Neutrophils # Man 5.3 K/mm3 (1.8-7.7) 11/21/21 19:36 Band Neutrophils # 0.0 K/mm3 11/21/21 19:36 Lymphocytes # (Manual) 0.7 K/mm3 (1.2-5.4) L 11/21/21 19:36 Abs React Lymphs (Man) 0.0 K/mm3 11/21/21 19:36 Monocytes # (Manual) 0.5 K/mm3 (0.0-0.8) 11/21/21 19:36 Eosinophils # (Manual) 0.0 K/mm3 (0.0-0.4) 11/21/21 19:36 Basophils # (Manual) 0.2 K/mm3 (0.0-0.1) H 11/21/21 19:36 Metamyelocytes # 0.0 K/mm3 11/21/21 19:36 Myelocytes # 0.0 K/mm3 11/21/21 19:36 Promyelocytes # 0.0 K/mm3 11/21/21 19:36 Blast Cells # 0.0 K/mm3 11/21/21 19:36 WBC Morphology Not Reportable 11/21/21 19:36 Hypersegmented Neuts Not Reportable 11/21/21 19:36 Hyposegmented Neuts Not Reportable 11/21/21 19:36 Hypogranular Neuts Not Reportable 11/21/21 19:36 Smudge Cells Not Reportable 11/21/21 19:36 Toxic Granulation Not Reportable 11/21/21 19:36 Toxic Vacuolation Not Reportable 11/21/21 19:36 Dohle Bodies Not Reportable 11/21/21 19:36 Pelger-Huet Anomaly Not Reportable 11/21/21 19:36 Luan Rods Not Reportable 11/21/21 19:36 Platelet Estimate Consistent w auto 11/21/21 19:36 Clumped Platelets Not Reportable 11/21/21 19:36 Plt Clumps, EDTA Not Reportable 11/21/21 19:36 Large Platelets Not Reportable 11/21/21 19:36 Giant Platelets Not Reportable 11/21/21 19:36 Platelet Satelliting Not Reportable 11/21/21 19:36 Plt Morphology Comment Not Reportable 11/21/21 19:36 RBC Morphology Normal 11/21/21 19:36 Dimorphic RBCs Not Reportable 11/21/21 19:36 Polychromasia Not Reportable 11/21/21 19:36 Hypochromasia Not Reportable 11/21/21 19:36 Poikilocytosis Not Reportable 11/21/21 19:36 Anisocytosis Not Reportable 11/21/21 19:36 Microcytosis Not Reportable 11/21/21 19:36 Macrocytosis Not Reportable 11/21/21 19:36 Spherocytes Not Reportable 11/21/21 19:36 Pappenheimer Bodies Not Reportable 11/21/21 19:36 Sickle Cells Not Reportable 11/21/21 19:36 Target Cells Not Reportable 11/21/21 19:36 Tear Drop Cells Not Reportable 11/21/21 19:36 Ovalocytes Not Reportable 11/21/21 19:36 Helmet Cells Not Reportable 11/21/21 19:36 Christie-Annawan Bodies Not Reportable 11/21/21 19:36 Delano Rings Not Reportable 11/21/21 19:36 Star Cells Not Reportable 11/21/21 19:36 Bite Cells Not Reportable 11/21/21 19:36 Crenated Cell Not Reportable 11/21/21 19:36 Elliptocytes Not Reportable 11/21/21 19:36 Acanthocytes (Spur) Not Reportable 11/21/21 19:36 Rouleaux Not Reportable 11/21/21 19:36 Hemoglobin C Crystals Not Reportable 11/21/21 19:36 Schistocytes Not Reportable 11/21/21 19:36 Malaria parasites Not Reportable 11/21/21 19:36 Kalia Bodies Not Reportable 11/21/21 19:36 Hem Pathologist Commnt No 11/21/21 19:36 D-Dimer 1279.46 ng/mlDDU (0-234) H 11/26/21 16:44 Sodium 139 mmol/L (137-145) D 12/10/21 08:04 Potassium 4.1 mmol/L (3.6-5.0) D 12/10/21 08:04 Chloride 110.0 mmol/L (98-107) H 12/10/21 08:04 Carbon Dioxide 22 mmol/L (22-30) 12/10/21 08:04 Anion Gap 11 mmol/L 12/10/21 08:04 BUN 9 mg/dL (9-20) 12/10/21 08:04 Creatinine 1.1 mg/dL (0.8-1.3) 12/10/21 08:04 Estimated GFR > 60 ml/min 12/10/21 08:04 BUN/Creatinine Ratio 8 % 12/10/21 08:04 Glucose 145 mg/dL (75-100) H 12/10/21 08:04 POC Glucose 188 mg/dL (70-105) H 12/12/21 07:47 Osmolality 316 Mosm/kg 11/27/21 Unknown Uric Acid 9.8 mg/dL (3.5-7.6) H 11/27/21 Unknown Calcium 8.0 mg/dL (8.4-10.2) L 12/10/21 08:04 Phosphorus 1.90 mg/dL (2.5-4.5) L 12/03/21 04:00 Magnesium 2.30 mg/dL (1.7-2.3) 12/07/21 05:36 Total Bilirubin 0.40 mg/dL (0.1-1.2) 11/28/21 06:47 AST 22 units/L (5-40) 11/28/21 06:47 ALT 28 units/L (7-56) 11/28/21 06:47 Alkaline Phosphatase 197 units/L (35-129) H 11/28/21 06:47 Ammonia 12.0 umol/L (25-60) L 11/28/21 12:59 C-Reactive Protein 13.00 mg/dL (0.00-1.30) H 11/27/21 05:17 Total Protein 5.6 g/dL (6.3-8.2) L 11/28/21 06:47 Albumin 2.5 g/dL (3.9-5) L 11/28/21 06:47 Albumin/Globulin Ratio 0.8 % 11/28/21 06:47 Procalcitonin 3.10 ng/mL (<0.15) 11/26/21 08:21 TSH 4.800 mlU/mL (0.270-4.200) H 11/21/21 19:37 Urine Color Kimberli (Yellow) 11/27/21 Unknown Urine Turbidity Slightly-cloudy (Clear) 11/27/21 Unknown Urine pH 5.0 (5.0-7.0) 11/27/21 Unknown Ur Specific [place] 1.013 (1.003-1.030) 11/27/21 Unknown Urine Protein <15 mg/dl mg/dL (Negative) 11/27/21 Unknown Urine Glucose (UA) 50 mg/dL (Negative) 11/27/21 Unknown Urine Ketones Tr mg/dL (Negative) 11/27/21 Unknown Urine Blood Neg (Negative) 11/27/21 Unknown Urine Nitrite Neg (Negative) 11/27/21 Unknown Urine Bilirubin Neg (Negative) 11/27/21 Unknown Urine Urobilinogen < 2.0 mg/dL (<2.0) 11/27/21 Unknown Ur Leukocyte Esterase Neg (Negative) 11/27/21 Unknown Urine WBC (Auto) 13.0 /HPF (0.0-6.0) H 11/27/21 Unknown Urine RBC (Auto) 2.0 /HPF (0.0-6.0) 11/27/21 Unknown U Epithel Cells (Auto) 1.0 /HPF (0-13.0) 11/27/21 Unknown Urine Bacteria (Auto) 1+ /HPF (Negative) 11/27/21 Unknown Urine Mucus Few /HPF 11/27/21 Unknown Urine Yeast (Budding) 2+ /HPF 11/27/21 Unknown Urine Creatinine 80.9 mg/dL (0.1-20.0) H 11/27/21 Unknown Urine Sodium 36 mmol/L 11/27/21 Unknown Urine Total Protein 43 mg/dL (5-11.8) H 11/27/21 Unknown Coronavirus (PCR) Positive (Negative) A 11/23/21 Unknown Fritz/IV: Voiding Method Condom Catheter Active Medications - Current Medications Current Medications: Generic Name Dose Route Start Last Admin Trade Name Freq PRN Reason Stop Dose Admin Acetaminophen 650 mg 11/22/21 05:48 Acetaminophen 325 Mg Tab PO Q4H PRN Pain MILD(1-3)/Fever >100.5/BRODY Albuterol 2.5 mg 11/25/21 12:00 Albuterol 2.5 Mg/3 Ml Nebu IH Q4HRT PRN Shortness Of Breath Dextrose 50 ml 12/02/21 15:42 Dextrose 50% In Water (25gm) 50 Ml Syringe IV Q30MIN PRN Hypoglycemia Protocol Docusate Sodium 100 mg 11/25/21 22:00 12/11/21 09:00 Docusate Sodium 100 Mg Cap PO 100 mg BID NANDINI Administration Enoxaparin Sodium 70 mg 11/26/21 12:30 12/11/21 08:59 Enoxaparin 80 Mg/0.8 Ml Inj SUB-Q 70 mg Q12HR NANDINI Administration Haloperidol Lactate 5 mg 12/07/21 15:34 12/08/21 10:42 Haloperidol Lactate 5 Mg/1 Ml Inj IM 5 mg Q6H PRN Administration Agitation Hydromorphone HCl 0.5 mg 11/22/21 05:48 11/23/21 06:02 Hydromorphone 1 Mg/1 Ml Inj IV 0.5 mg Q3H PRN Administration Pain , Severe (7-10) Insulin Human Lispro 0 unit 12/11/21 18:00 12/11/21 18:56 Insulin Lispro 100 Unit/Ml SUB-Q Not Given Q6H [facility] Protocol Lorazepam 2 mg 12/08/21 10:00 12/11/21 18:56 Lorazepam 2 Mg/Ml Vial IV Not Given Q4HR [facility] Morphine Sulfate 2 mg 11/22/21 05:48 12/03/21 21:38 Morphine 2 Mg/1 Ml Inj IV 2 mg Q4H PRN Administration Pain, Moderate (4-6) Ondansetron HCl 4 mg 11/22/21 05:48 12/03/21 21:38 Ondansetron 4 Mg/2 Ml Inj IV 4 mg Q8H PRN Administration Nausea And Vomiting Sodium Chloride 10 ml 11/22/21 10:00 12/11/21 09:00 Sodium Chloride 0.9% 10 Ml Flush Syringe IV 10 ml BID NANDINI Administration Sodium Chloride 10 ml 11/22/21 05:48 Sodium Chloride 0.9% 10 Ml Flush Syringe IV PRN PRN LINE FLUSH Nutrition/Malnutrition Assess - Dietary Evaluation Nutrition/Malnutrition Findings: Nutrition Notes Start: 11/22/21 14:16 Freq: Status: Active Protocol: Document 12/11/21 12:13 NICKO (Rec: 12/11/21 12:34 NICKO [id number]) Nutrition Notes Initial or Follow up Reassessment Current Diagnosis Acute Kidney Injury,COPD, Coronary Artery Disease, Diabetes,Respiratory Failure Other Pertinent Diagnosis COVID-19, Pneumonia, Metabolic encephalopathy, Cardiomyopathy, HFrEF. Current Diet TF-Promote @ 57 ml/hr (since D 12/11). Height 5 ft 11 in Weight 68.6 kg [place] Body Weight (kg) 78.18 BMI 21.1 Weight change and time frame 0.2 Kg body weight loss in 3 days reported. Weight Status Overweight Subjective/Other Information RD consult for write/manage TF . Pt's PO intake continues to be neglible, MD requested TF order. Percent of energy/protein needs met: Prescribed TF-Promote @ 57 ml/ hr provides for energy/protein needs (1,378 Kcal/86 g) during LOS, 75% Kcal; 100% AA. Current % PO Other Minimum of two criteria No #3 Nutrition Diagnosis Inadequate oral intake, Inadequate protein-energy intake Etiology Ongoing and concomitant chronic metabolic conditions. As Evidenced by Signs and Symptoms Pt's plrolongued neglible PO intake of meals. Is patient on ventilator? No Is Patient Ambulatory and/or Out of Bed Yes [facility] [ 1837.069 [id number]] Calculation Used for Recommendations 70-80% of EEN. Additional Notes 15-20 Kcal/Kg ABW. Protein: 1.2-2 g/Kg; 83-138 g/ day. Fluids: 1 ml/Kcal, or as per MD. Nutrition Intervention Change Diet Order: d/c Nutrition Support: Start Promote @ 57 ml/hr. Flush 110 ml water Q 4 hr, or as per MD. Kcal 1,378 Protein (gm) 86 Carbohydrates (gm) 179 Fat (gm) 36 Fluid (mL) 1,156 Fiber (gm) 0 % RDI: 75% Kcal; 100% AA. Goal #1 Provide at least 75% of energy /protein needs through Enteral Feeding during LOS. Follow-Up By: 12/15/21 Additional Comments Continue monitoring TF tolerance and BM.
[2021-12-12 08:05] LABS: BUN/Creatinine Ratio 10; Blood Urea Nitrogen 13 mg/dL (9-20); Calcium 8.2 mg/dL (8.4-10.2); Hemolysis Index 10
[2021-12-12] MEDS: DOCUSATE SODIUM 100 MG CAP PO SCH ×4 (09:53→22:44)
[2021-12-12] MEDS: ENOXAPARIN 80 MG/0.8 ML INJ SUB-Q SCH ×3 (09:53→22:43)
[2021-12-12] MEDS: LORazepam 2 MG/ML VIAL IV SCH ×3 (11:53→22:42)
[2021-12-12] MEDS: INSULIN LISPRO 100 UNIT/ML SUB-Q SCH ×3 (11:58→23:10)
[2021-12-12] MEDS: DEXTROSE 50% IN WATER (25GM) 50 ML SYRINGE IV PRN (23:53)
[2021-12-13] MEDS: DEXTROSE 50% IN WATER (25GM) 50 ML SYRINGE IV PRN ×2 (00:11→00:21)
[2021-12-13] MEDS: DEXTROSE 10% *Hypoglycemia IV PRN (00:23)
[2021-12-13 00:38] LABS: ABG Base Excess -0.6 mmol/L (-2.0-3.0); ABG HCO3 24.6 mmol/L (20.0-26.0); ABG Methemoglobin 0.5 % (0.0-1.5); ABG Oxygen Saturation 98.4 % (95.0-99.0); ABG PCO2 42.6 mm Hg; ABG PH 7.379 pH Units (7.350-7.450); ABG PO2 125.3 mm Hg (80.0-90.0)
[2021-12-13] MEDS: LORazepam 2 MG/ML VIAL IV SCH ×7 (02:05→23:35)
[2021-12-13] MEDS: DEXTROSE 10% IN WATER 1,000 ML IV SCH (02:17)
[2021-12-13] MEDS: INSULIN LISPRO 100 UNIT/ML SUB-Q SCH ×2 (06:47→14:19)
--- NOTE | 2021-12-13 07:54 | Progress Note ---
Assessment and Plan Assessment and plan: #Acute metabolic encephalopathy -CT head negative for acute findings; MRI unable to be performed secondary to agitation -Etiology unknown, mentation improves as sodium level improves -Delirium precautions -Avoid sedation #Poor oral intake -patient noted to have poor oral intake -ST eval ordered; may possibly need PEG tube placement; will discuss with spouse -dobhoff placed for TF in meantime - evaluation #Acute hypoxic respiratory failure-improving #COVID-19 pneumonia-stable -currently on 2L NC -Was not candidate for remdesivir due to initial ROSANA -s/p steroids x10 days -continue lovenox #Hypoglycemia #hx of Insulin-dependent type 2 diabetes -patient with glucose as low as 18. D10W infusion started -will discontinue SSI -Goal glucose 140-180 while inpatient #CAD #Chronic heart failure with reduced ejection fraction -TTE revealing EF of 35 to 40% #Bradycardia-improved -Cardiology following, assistance appreciated -Home beta-tee held #Hypertension -Blood pressure controlled, no meds while inpatient #ROSANA-resolved -Secondary to vasomotor nephropathy #UTI -Status post antibiotics -Urine culture shows 10-100 K Natalia species #Hypokalemia -We will continue to replete and monitor #Hypernatremia-resolved #Severe debility -Evaluated by PT and OT, recommendation for subacute rehab at discharge #Discharge planning -Pending SNF and possible PEG placement Disposition Plan: continue medical management History Interval history: Patient hypoglycemic overnight, most recent POC glucose in 100s. Currently on 2L NC. Alert to person. Dobbhoff in place. Hospitalist Physical - Physical exam Narrative exam: GENERAL: Well-developed well-nourished. In no acute distress. HEENT: +Dobbhoff, NC CHEST/LUNGS: CTAB on room air HEART/CARDIOVASCULAR: RRR. No murmur, rubs or gallops appreciated. ABDOMEN: +BS. NT/ND. MUSCULOSKELETAL: No joint effusion EXTREMITIES: No cyanosis, clubbing or edema. PSYCH: Alert to self. - Constitutional Vitals: Temp Pulse Resp BP Pulse Ox 97.3 F L 87 16 151/95 96 12/12/21 21:26 12/12/21 21:26 12/12/21 21:26 12/12/21 21:26 12/12/21 22:00 General appearance: Present: no acute distress, cachectic Results - Labs CBC & Chem 7: 12/04/21 07:17 12/12/21 22:41 Labs: Laboratory Last Values WBC 5.5 K/mm3 (4.5-11.0) 12/04/21 07:17 RBC 3.52 M/mm3 (3.65-5.03) L 12/04/21 07:17 Hgb 10.4 gm/dl (11.8-15.2) L 12/04/21 07:17 Hct 33.6 % (35.5-45.6) L 12/04/21 07:17 MCV 95 fl (84-94) H 12/04/21 07:17 MCH 30 pg (28-32) 12/04/21 07:17 MCHC 31 % (32-34) L 12/04/21 07:17 RDW 15.7 % (13.2-15.2) H 12/04/21 07:17 Plt Count 284 K/mm3 (140-440) 12/04/21 07:17 Lymph % (Auto) 17.8 % (13.4-35.0) 12/04/21 07:17 [place] % (Auto) 14.7 % (0.0-7.3) H 12/04/21 07:17 Eos % (Auto) 0.6 % (0.0-4.3) 12/04/21 07:17 Baso % (Auto) 0.4 % (0.0-1.8) 12/04/21 07:17 Lymph # (Auto) 1.0 K/mm3 (1.2-5.4) L 12/04/21 07:17 [place] # (Auto) 0.8 K/mm3 (0.0-0.8) 12/04/21 07:17 Eos # (Auto) 0.0 K/mm3 (0.0-0.4) 12/04/21 07:17 Baso # (Auto) 0.0 K/mm3 (0.0-0.1) 12/04/21 07:17 Add Manual Diff Complete 11/21/21 19:36 Total Counted 100 11/21/21 19:36 Seg Neutrophils % 66.5 % (40.0-70.0) 12/04/21 07:17 Seg Neuts % (Manual) 79.0 % (40.0-70.0) H 11/21/21 19:36 Lymphocytes % (Manual) 10.0 % (13.4-35.0) L 11/21/21 19:36 Monocytes % (Manual) 8.0 % (0.0-7.3) H 11/21/21 19:36 Basophils % (Manual) 3.0 % (0.0-1.8) H 11/21/21 19:36 Nucleated RBC % Not Reportable 11/21/21 19:36 Seg Neutrophils # 3.6 K/mm3 (1.8-7.7) 12/04/21 07:17 Seg Neutrophils # Man 5.3 K/mm3 (1.8-7.7) 11/21/21 19:36 Band Neutrophils # 0.0 K/mm3 11/21/21 19:36 Lymphocytes # (Manual) 0.7 K/mm3 (1.2-5.4) L 11/21/21 19:36 Abs React Lymphs (Man) 0.0 K/mm3 11/21/21 19:36 Monocytes # (Manual) 0.5 K/mm3 (0.0-0.8) 11/21/21 19:36 Eosinophils # (Manual) 0.0 K/mm3 (0.0-0.4) 11/21/21 19:36 Basophils # (Manual) 0.2 K/mm3 (0.0-0.1) H 11/21/21 19:36 Metamyelocytes # 0.0 K/mm3 11/21/21 19:36 Myelocytes # 0.0 K/mm3 11/21/21 19:36 Promyelocytes # 0.0 K/mm3 11/21/21 19:36 Blast Cells # 0.0 K/mm3 11/21/21 19:36 WBC Morphology Not Reportable 11/21/21 19:36 Hypersegmented Neuts Not Reportable 11/21/21 19:36 Hyposegmented Neuts Not Reportable 11/21/21 19:36 Hypogranular Neuts Not Reportable 11/21/21 19:36 Smudge Cells Not Reportable 11/21/21 19:36 Toxic Granulation Not Reportable 11/21/21 19:36 Toxic Vacuolation Not Reportable 11/21/21 19:36 Dohle Bodies Not Reportable 11/21/21 19:36 Pelger-Huet Anomaly Not Reportable 11/21/21 19:36 Luan Rods Not Reportable 11/21/21 19:36 Platelet Estimate Consistent w auto 11/21/21 19:36 Clumped Platelets Not Reportable 11/21/21 19:36 Plt Clumps, EDTA Not Reportable 11/21/21 19:36 Large Platelets Not Reportable 11/21/21 19:36 Giant Platelets Not Reportable 11/21/21 19:36 Platelet Satelliting Not Reportable 11/21/21 19:36 Plt Morphology Comment Not Reportable 11/21/21 19:36 RBC Morphology Normal 11/21/21 19:36 Dimorphic RBCs Not Reportable 11/21/21 19:36 Polychromasia Not Reportable 11/21/21 19:36 Hypochromasia Not Reportable 11/21/21 19:36 Poikilocytosis Not Reportable 11/21/21 19:36 Anisocytosis Not Reportable 11/21/21 19:36 Microcytosis Not Reportable 11/21/21 19:36 Macrocytosis Not Reportable 11/21/21 19:36 Spherocytes Not Reportable 11/21/21 19:36 Pappenheimer Bodies Not Reportable 11/21/21 19:36 Sickle Cells Not Reportable 11/21/21 19:36 Target Cells Not Reportable 11/21/21 19:36 Tear Drop Cells Not Reportable 11/21/21 19:36 Ovalocytes Not Reportable 11/21/21 19:36 Helmet Cells Not Reportable 11/21/21 19:36 Christie-Lago Bodies Not Reportable 11/21/21 19:36 [place] Rings Not Reportable 11/21/21 19:36 [place] Cells Not Reportable 11/21/21 19:36 Bite Cells Not Reportable 11/21/21 19:36 Crenated Cell Not Reportable 11/21/21 19:36 Elliptocytes Not Reportable 11/21/21 19:36 Acanthocytes (Spur) Not Reportable 11/21/21 19:36 Rouleaux Not Reportable 11/21/21 19:36 Hemoglobin C Crystals Not Reportable 11/21/21 19:36 Schistocytes Not Reportable 11/21/21 19:36 Malaria parasites Not Reportable 11/21/21 19:36 Kalia Bodies Not Reportable 11/21/21 19:36 Hem Pathologist Commnt No 11/21/21 19:36 D-Dimer 1279.46 ng/mlDDU (0-234) H 11/26/21 16:44 ABG pH 7.379 pH Units (7.350-7.450) 12/13/21 00:30 ABG pCO2 42.6 mm Hg 12/13/21 00:30 ABG pO2 125.3 mm Hg (80.0-90.0) H 12/13/21 00:30 ABG HCO3 24.6 mmol/L (20.0-26.0) 12/13/21 00:30 ABG O2 Saturation 98.4 % (95.0-99.0) 12/13/21 00:30 ABG O2 Content 14.3 (0.0-44) 12/13/21 00:30 ABG Base Excess -0.6 mmol/L (-2.0-3.0) 12/13/21 00:30 ABG Hemoglobin 10.4 gm/dl (14.0-18.0) L 12/13/21 00:30 ABG Carboxyhemoglobin 1.8 % (0.0-5.0) 12/13/21 00:30 ABG Methemoglobin 0.5 % (0.0-1.5) 12/13/21 00:30 Oxyhemoglobin 96.0 % (95.0-99.0) 12/13/21 00:30 FiO2 36 % 12/13/21 00:30 Sodium 140 mmol/L (137-145) 12/12/21 07:13 Potassium 4.1 mmol/L (3.6-5.0) 12/12/21 07:13 Chloride 109.1 mmol/L (98-107) H 12/12/21 07:13 Carbon Dioxide 22 mmol/L (22-30) 12/12/21 07:13 Anion Gap 13 mmol/L 12/12/21 07:13 BUN 13 mg/dL (9-20) 12/12/21 07:13 Creatinine 1.3 mg/dL (0.8-1.3) 12/12/21 07:13 Estimated GFR > 60 ml/min 12/12/21 07:13 BUN/Creatinine Ratio 10 % 12/12/21 07:13 Glucose 18 mg/dL (75-100) L* 12/12/21 22:41 POC Glucose 88 mg/dL (70-105) 12/13/21 02:11 Osmolality 316 Mosm/kg 11/27/21 Unknown Uric Acid 9.8 mg/dL (3.5-7.6) H 11/27/21 Unknown Calcium 8.2 mg/dL (8.4-10.2) L 12/12/21 07:13 Phosphorus 1.90 mg/dL (2.5-4.5) L 12/03/21 04:00 Magnesium 2.30 mg/dL (1.7-2.3) 12/07/21 05:36 Total Bilirubin 0.40 mg/dL (0.1-1.2) 11/28/21 06:47 AST 22 units/L (5-40) 11/28/21 06:47 ALT 28 units/L (7-56) 11/28/21 06:47 Alkaline Phosphatase 197 units/L (35-129) H 11/28/21 06:47 Ammonia 12.0 umol/L (25-60) L 11/28/21 12:59 C-Reactive Protein 13.00 mg/dL (0.00-1.30) H 11/27/21 05:17 Total Protein 5.6 g/dL (6.3-8.2) L 11/28/21 06:47 Albumin 2.5 g/dL (3.9-5) L 11/28/21 06:47 Albumin/Globulin Ratio 0.8 % 11/28/21 06:47 Procalcitonin 3.10 ng/mL (<0.15) 11/26/21 08:21 TSH 4.800 mlU/mL (0.270-4.200) H 11/21/21 19:37 Urine Color Kimberli (Yellow) 11/27/21 Unknown Urine Turbidity Slightly-cloudy (Clear) 11/27/21 Unknown Urine pH 5.0 (5.0-7.0) 11/27/21 Unknown Ur Specific Boomer 1.013 (1.003-1.030) 11/27/21 Unknown Urine Protein <15 mg/dl mg/dL (Negative) 11/27/21 Unknown Urine Glucose (UA) 50 mg/dL (Negative) 11/27/21 Unknown Urine Ketones Tr mg/dL (Negative) 11/27/21 Unknown Urine Blood Neg (Negative) 11/27/21 Unknown Urine Nitrite Neg (Negative) 11/27/21 Unknown Urine Bilirubin Neg (Negative) 11/27/21 Unknown Urine Urobilinogen < 2.0 mg/dL (<2.0) 11/27/21 Unknown Ur Leukocyte Esterase Neg (Negative) 11/27/21 Unknown Urine WBC (Auto) 13.0 /HPF (0.0-6.0) H 11/27/21 Unknown Urine RBC (Auto) 2.0 /HPF (0.0-6.0) 11/27/21 Unknown U Epithel Cells (Auto) 1.0 /HPF (0-13.0) 11/27/21 Unknown Urine Bacteria (Auto) 1+ /HPF (Negative) 11/27/21 Unknown Urine Mucus Few /HPF 11/27/21 Unknown Urine Yeast (Budding) 2+ /HPF 11/27/21 Unknown Urine Creatinine 80.9 mg/dL (0.1-20.0) H 11/27/21 Unknown Urine Sodium 36 mmol/L 11/27/21 Unknown Urine Total Protein 43 mg/dL (5-11.8) H 11/27/21 Unknown Coronavirus (PCR) Positive (Negative) A 11/23/21 Unknown Fritz/IV: Voiding Method Condom Catheter Active Medications - Current Medications Current Medications: Generic Name Dose Route Start Last Admin Trade Name Freq PRN Reason Stop Dose Admin Acetaminophen 650 mg 11/22/21 05:48 Acetaminophen 325 Mg Tab PO Q4H PRN Pain MILD(1-3)/Fever >100.5/BRODY Albuterol 2.5 mg 11/25/21 12:00 Albuterol 2.5 Mg/3 Ml Nebu IH Q4HRT PRN Shortness Of Breath Dextrose 50 ml 12/02/21 15:42 12/13/21 00:21 Dextrose 50% In Water (25gm) 50 Ml Syringe IV 50 ml Q30MIN PRN Administration Hypoglycemia Protocol Dextrose 0 ml 12/13/21 00:12 12/13/21 00:23 Dextrose 10% *Hypoglycemia IV 250 ml PRN PRN Administration Hypoglycemia Docusate Sodium 100 mg 11/25/21 22:00 12/12/21 22:44 Docusate Sodium 100 Mg Cap PO Not Given BID NANDINI Enoxaparin Sodium 70 mg 11/26/21 12:30 12/12/21 22:43 Enoxaparin 80 Mg/0.8 Ml Inj SUB-Q 70 mg Q12HR NANDINI Administration Haloperidol Lactate 5 mg 12/07/21 15:34 12/08/21 10:42 Haloperidol Lactate 5 Mg/1 Ml Inj IM 5 mg Q6H PRN Administration Agitation Hydromorphone HCl 0.5 mg 11/22/21 05:48 11/23/21 06:02 Hydromorphone 1 Mg/1 Ml Inj IV 0.5 mg Q3H PRN Administration Pain , Severe (7-10) Dextrose 1,000 mls @ 75 mls/hr 12/13/21 00:20 12/13/21 02:17 D10w IV 75 mls/hr DIRECT NANDINI Administration Insulin Human Lispro 0 unit 12/11/21 18:00 12/13/21 06:47 Insulin Lispro 100 Unit/Ml SUB-Q Not Given Q6H [facility] Protocol Lorazepam 2 mg 12/08/21 10:00 12/13/21 06:47 Lorazepam 2 Mg/Ml Vial IV Not Given Q4HR NANDINI Morphine Sulfate 2 mg 11/22/21 05:48 12/03/21 21:38 Morphine 2 Mg/1 Ml Inj IV 2 mg Q4H PRN Administration Pain, Moderate (4-6) Ondansetron HCl 4 mg 11/22/21 05:48 12/03/21 21:38 Ondansetron 4 Mg/2 Ml Inj IV 4 mg Q8H PRN Administration Nausea And Vomiting Sodium Chloride 10 ml 11/22/21 10:00 12/12/21 22:43 Sodium Chloride 0.9% 10 Ml Flush Syringe IV 10 ml BID NANDINI Administration Sodium Chloride 10 ml 11/22/21 05:48 Sodium Chloride 0.9% 10 Ml Flush Syringe IV PRN PRN LINE FLUSH Nutrition/Malnutrition Assess - Dietary Evaluation Nutrition/Malnutrition Findings: Nutrition Notes Start: 11/22/21 14:16 Freq: Status: Active Protocol: Document 12/11/21 12:13 NICKO (Rec: 12/11/21 12:34 NICKO [id number]) Nutrition Notes Initial or Follow up Reassessment Current Diagnosis Acute Kidney Injury,COPD, Coronary Artery Disease, Diabetes,Respiratory Failure Other Pertinent Diagnosis COVID-19, Pneumonia, Metabolic encephalopathy, Cardiomyopathy, HFrEF. Current Diet TF-Promote @ 57 ml/hr (since D 12/11). Height 5 ft 11 in Weight 68.6 kg Raymond Body Weight (kg) 78.18 BMI 21.1 Weight change and time frame 0.2 Kg body weight loss in 3 days reported. Weight Status Overweight Subjective/Other Information RD consult for write/manage TF . Pt's PO intake continues to be neglible, MD requested TF order. Percent of energy/protein needs met: Prescribed TF-Promote @ 57 ml/ hr provides for energy/protein needs (1,378 Kcal/86 g) during LOS, 75% Kcal; 100% AA. Current % PO Other Minimum of two criteria No #3 Nutrition Diagnosis Inadequate oral intake, Inadequate protein-energy intake Etiology Ongoing and concomitant chronic metabolic conditions. As Evidenced by Signs and Symptoms Pt's plrolongued neglible PO intake of meals. Is patient on ventilator? No Is Patient Ambulatory and/or Out of Bed Yes REE-([facility]-ambulatory/OOB) [ 1837.069 [id number]] Calculation Used for Recommendations 70-80% of EEN. Additional Notes 15-20 Kcal/Kg ABW. Protein: 1.2-2 g/Kg; 83-138 g/ day. Fluids: 1 ml/Kcal, or as per MD. Nutrition Intervention Change Diet Order: d/c Nutrition Support: Start Promote @ 57 ml/hr. Flush 110 ml water Q 4 hr, or as per MD. Kcal 1,378 Protein (gm) 86 Carbohydrates (gm) 179 Fat (gm) 36 Fluid (mL) 1,156 Fiber (gm) 0 % RDI: 75% Kcal; 100% AA. Goal #1 Provide at least 75% of energy /protein needs through Enteral Feeding during LOS. Follow-Up By: 12/15/21 Additional Comments Continue monitoring TF tolerance and BM.
--- NOTE | 2021-12-13 07:54 | Event Note ---
Date: 12/13/21 Code med called on 81-year-old -[place] male who is on admission for acute metabolic encephalopathy, acute hypoxic respiratory failure secondary to COVID-19 pneumonia. Patient has known history of diabetes mellitus. Blood glucose was checked and was found to be 18. Patient given multiple rounds of D50 with improvement of blood glucose to about 50. He is started on D10 IV fluid. Will continue to monitor blood glucose closely.
[2021-12-13] MEDS: ENOXAPARIN 80 MG/0.8 ML INJ SUB-Q SCH ×2 (10:47→23:34)
--- NOTE | 2021-12-13 12:57 | Consultation ---
History of Present Illness - Reason for Consult Consult date: 12/13/21 Reason for consult: agitation - Chief Complaint Chief complaint: Altered mental status - History of Present Psychiatric Illness Per Note: Patient was brought in by EMS for altered mental status. History is obtained from EMS as the patient is confused. Apparently, family called because the patient was confused. He was allegedly discharged from [facility] days ago and has been confused since then. The did not know why he was in the hospital to begin with. Allegedly, before he went to the hospital he was able to have a cogent conversation and was ambulatory. Now, apparently he cannot support his own weight. He is confused and cannot carry a cogent conversation. Family is not present to provide any further history at this time. There was no history of fall. When asked why the patient is here, the patient simply stares blankly. If you asked specifically if he is in pain or having trouble breathing, he answers no. The patient is an 81 year old male with no psychiatric history who was admitted with altered mental status. The patient was seen this morning. The patient is confused. PAST PSYCHIATRIC HISTORY: PAST MEDICAL HISTORY: unknown Family Psychiatric History: None reported or documented SOCIAL HISTORY REVIEW OF SYSTEMS MENTAL STATUS EXAMINATION Assessment (1)Major depressive disorder (2) Current Visit: Yes Status: Acute Treatment plan Continue previous prescribed meds I agree with the current treatment plan. Risks, benefits and alternatives of medications discussed with the patient, questions answered and consent obtained from patient. PSYCHOTHERAPY: Supportive psychotherapy provided MEDICAL: Per primary team DELIRIUM PRECAUTIONS: Please re-orient patient frequently, keep lights on during the day, and minimize benzodiazepines and opiates as these medications could worsen patient's confusion. 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 Will follow for medication management. Thank you for the consult. Please contact with any questions and/or concerns. Case staffed with Dr. Sanchez Medications and Allergies Medications and Allergies Allergies Allergy/AdvReac Type Severity Reaction Status Date / Time No Known Allergies Allergy Verified 11/22/21 05:55 Home Medications Medication Instructions Recorded Confirmed Last Taken Type Furosemide [Lasix TAB] 80 mg PO TID 11/24/21 11/24/21 Unknown History Gabapentin [Neurontin] 300 mg PO BID 11/24/21 11/27/21 11/19/21 09:12 History 300 mg Sacubitril/Valsartan [Entresto 1 tab PO BID 11/24/21 11/27/21 11/19/21 09:12 History 49-51 mg] 1 tab Spironolactone [Aldactone] 25 mg PO QDAY 11/24/21 11/27/21 11/19/21 09:12 History 25 mg Tamsulosin [Flomax] 0.4 mg PO QDAY 11/24/21 11/27/21 11/18/21 22:02 History 0.4 mg carvediloL [Coreg] 6.25 mg PO BID 11/24/21 11/27/21 11/19/21 09:12 History 6.25mg AtorvaSTATin [Lipitor] 40 mg PO QHS 11/27/21 11/27/21 11/19/21 09:12 History 40 mg Insulin Glargine,Hum.rec.anlog 12 unit SQ QHS 11/27/21 11/27/21 11/18/21 22:02 History [Lantus Solostar] 12 units Insulin Lispro [Admelog] 1 - 12 unit SQ TIDAC 11/27/21 11/27/21 11/19/21 08:32 H istory 6 units Insulin Lispro [Admelog] 4 unit SQ TID 11/27/21 11/27/21 11/19/21 08:33 History 4 units oxyCODONE /ACETAMINOPHEN [Percocet 1 tab PO Q6HR PRN 11/27/21 11/27/21 11/19/21 03:57 History 5/325] 1 tab Active Meds: Active Medications Acetaminophen (Acetaminophen 325 Mg Tab) 650 mg PO Q4H PRN PRN Reason: Pain MILD(1-3)/Fever >100.5/BRODY Albuterol (Albuterol 2.5 Mg/3 Ml Nebu) 2.5 mg IH Q4HRT PRN PRN Reason: Shortness Of Breath Dextrose (Dextrose 10% *Hypoglycemia) 0 ml IV PRN PRN PRN Reason: Hypoglycemia Last Admin: 12/13/21 00:23 Dose: 250 ml Docusate Sodium (Docusate Sodium 100 Mg Cap) 100 mg PO BID NANDINI Last Admin: 12/12/21 22:44 Dose: Not Given Enoxaparin Sodium (Enoxaparin 80 Mg/0.8 Ml Inj) 70 mg SUB-Q Q12HR NANDINI Last Admin: 12/13/21 10:47 Dose: 70 mg Haloperidol Lactate (Haloperidol Lactate 5 Mg/1 Ml Inj) 5 mg IM Q6H PRN PRN Reason: Agitation Last Admin: 12/08/21 10:42 Dose: 5 mg Hydromorphone HCl (Hydromorphone 1 Mg/1 Ml Inj) 0.5 mg IV Q3H PRN PRN Reason: Pain , Severe (7-10) Last Admin: 11/23/21 06:02 Dose: 0.5 mg Dextrose (D10w) 1,000 mls @ 75 mls/hr IV DIRECT NANDINI Last Admin: 12/13/21 02:17 Dose: 75 mls/hr Insulin Human Lispro (Insulin Lispro 100 Unit/Ml) 0 unit SUB-Q Q6H [facility]; P rotocol Last Admin: 12/13/21 06:47 Dose: Not Given Lorazepam (Lorazepam 2 Mg/Ml Vial) 2 mg IV Q4HR [facility] Last Admin: 12/13/21 10:46 Dose: 2 mg Morphine Sulfate (Morphine 2 Mg/1 Ml Inj) 2 mg IV Q4H PRN PRN Reason: Pain, Moderate (4-6) Last Admin: 12/03/21 21:38 Dose: 2 mg Ondansetron HCl (Ondansetron 4 Mg/2 Ml Inj) 4 mg IV Q8H PRN PRN Reason: Nausea And Vomiting Last Admin: 12/03/21 21:38 Dose: 4 mg Sodium Chloride (Sodium Chloride 0.9% 10 Ml Flush Syringe) 10 ml IV BID [facility] Last Admin: 12/13/21 10:48 Dose: 10 ml Sodium Chloride (Sodium Chloride 0.9% 10 Ml Flush Syringe) 10 ml IV PRN PRN PRN Reason: LINE FLUSH Mental Status Exam - Vital signs Last Vital Signs Temp 97.3 F L 12/12/21 21:26 Pulse 87 12/12/21 21:26 Resp 16 12/12/21 21:26 BP 151/95 12/12/21 21:26 Pulse Ox 96 12/12/21 22:00 Results Result Diagrams: 12/04/21 07:17 12/12/21 22:41 Abnormal lab results 12/12/21 12/12/21 12/12/21 Range/Units 15:39 21:22 22:41 ABG pO2 (80.0-90.0) mm Hg ABG Hemoglobin (14.0-18.0) gm/dl Glucose 18 L* (75-100) mg/dL POC Glucose 173 H 43 L (70-105) mg/dL 12/13/21 12/13/21 12/13/21 Range/Units 00:06 00:18 00:26 ABG pO2 (80.0-90.0) mm Hg ABG Hemoglobin (14.0-18.0) gm/dl Glucose (75-100) mg/dL POC Glucose 20 L 33 L 36 L (70-105) mg/dL 12/13/21 12/13/21 12/13/21 Range/Units 00:29 00:30 00:51 ABG pO2 125.3 H (80.0-90.0) mm Hg ABG Hemoglobin 10.4 L (14.0-18.0) gm/dl Glucose (75-100) mg/dL POC Glucose 48 L 50 L (70-105) mg/dL 12/13/21 12/13/21 Range/Units 01:35 12:27 ABG pO2 (80.0-90.0) mm Hg ABG Hemoglobin (14.0-18.0) gm/dl Glucose (75-100) mg/dL POC Glucose 63 L 197 H (70-105) mg/dL All other labs normal.
[2021-12-13] MEDS: DOCUSATE SODIUM 100 MG CAP PO SCH (14:19)
[2021-12-13] MEDS: DOCUSATE SODIUM 100 MG/10 ML ORAL LIQD FEEDTUBE SCH (23:34)
[2021-12-14] MEDS: LORazepam 2 MG/ML VIAL IV SCH ×8 (06:31→22:09)
[2021-12-14] MEDS ORDERED: FUROSEMIDE 40 MG/4 ML INJ IV ONE (08:26)
--- NOTE | 2021-12-14 08:29 | Progress Note ---
Assessment and Plan Assessment and plan: #Acute metabolic encephalopathy -CT head negative for acute findings; MRI unable to be performed secondary to agitation -Etiology unknown, mentation improves as sodium level improves -Delirium precautions -Avoid sedation #Poor oral intake -patient noted to have poor oral intake -ST eval ordered; may possibly need PEG tube placement; will discuss with spouse -dobhoff placed for TF in meantime #Acute hypoxic respiratory failure-improving #COVID-19 pneumonia-stable -currently on 2L NC -Was not candidate for remdesivir due to initial ROSANA -s/p steroids x10 days -continue lovenox #Hypoglycemia #hx of Insulin-dependent type 2 diabetes -patient with glucose as low as 18. D10W infusion started -will discontinue SSI -Goal glucose 140-180 while inpatient #CAD #Chronic heart failure with reduced ejection fraction -TTE revealing EF of 35 to 40% #Bradycardia-improved -Cardiology following, assistance appreciated -Home beta-tee held #Hypertension -Blood pressure controlled, no meds while inpatient #ROSANA-resolved -Secondary to vasomotor nephropathy #UTI -Status post antibiotics -Urine culture shows 10-100 K Natalia species #Hypokalemia -We will continue to replete and monitor #Hypernatremia-resolved #Severe debility -Evaluated by PT and OT, recommendation for subacute rehab at discharge #Discharge planning -Pending SNF and possible PEG placement Disposition Plan: continue medical management History Interval history: Currently on 2L NC. Alert to person. Dobbhoff in place. Hospitalist Physical - Physical exam Narrative exam: GENERAL: Well-developed well-nourished. In no acute distress. HEENT: +Dobbhoff, NC CHEST/LUNGS: CTAB on room air HEART/CARDIOVASCULAR: RRR. No murmur, rubs or gallops appreciated. ABDOMEN: +BS. NT/ND. MUSCULOSKELETAL: No joint effusion EXTREMITIES: No cyanosis, clubbing or edema. PSYCH: Alert to self. - Constitutional Vitals: Temp Pulse Resp BP Pulse Ox 97.6 F 76 18 118/59 75 L 12/14/21 05:09 12/14/21 02:00 12/14/21 05:09 12/14/21 05:09 12/13/21 23:46 General appearance: Present: no acute distress, cachectic Results - Labs CBC & Chem 7: 12/04/21 07:17 12/12/21 22:41 Labs: Laboratory Last Values WBC 5.5 K/mm3 (4.5-11.0) 12/04/21 07:17 RBC 3.52 M/mm3 (3.65-5.03) L 12/04/21 07:17 Hgb 10.4 gm/dl (11.8-15.2) L 12/04/21 07:17 Hct 33.6 % (35.5-45.6) L 12/04/21 07:17 MCV 95 fl (84-94) H 12/04/21 07:17 MCH 30 pg (28-32) 12/04/21 07:17 MCHC 31 % (32-34) L 12/04/21 07:17 RDW 15.7 % (13.2-15.2) H 12/04/21 07:17 Plt Count 284 K/mm3 (140-440) 12/04/21 07:17 Lymph % (Auto) 17.8 % (13.4-35.0) 12/04/21 07:17 Starke % (Auto) 14.7 % (0.0-7.3) H 12/04/21 07:17 Eos % (Auto) 0.6 % (0.0-4.3) 12/04/21 07:17 Baso % (Auto) 0.4 % (0.0-1.8) 12/04/21 07:17 Lymph # (Auto) 1.0 K/mm3 (1.2-5.4) L 12/04/21 07:17 Starke # (Auto) 0.8 K/mm3 (0.0-0.8) 12/04/21 07:17 Eos # (Auto) 0.0 K/mm3 (0.0-0.4) 12/04/21 07:17 Baso # (Auto) 0.0 K/mm3 (0.0-0.1) 12/04/21 07:17 Add Manual Diff Complete 11/21/21 19:36 Total Counted 100 11/21/21 19:36 Seg Neutrophils % 66.5 % (40.0-70.0) 12/04/21 07:17 Seg Neuts % (Manual) 79.0 % (40.0-70.0) H 11/21/21 19:36 Lymphocytes % (Manual) 10.0 % (13.4-35.0) L 11/21/21 19:36 Monocytes % (Manual) 8.0 % (0.0-7.3) H 11/21/21 19:36 Basophils % (Manual) 3.0 % (0.0-1.8) H 11/21/21 19:36 Nucleated RBC % Not Reportable 11/21/21 19:36 Seg Neutrophils # 3.6 K/mm3 (1.8-7.7) 12/04/21 07:17 Seg Neutrophils # Man 5.3 K/mm3 (1.8-7.7) 11/21/21 19:36 Band Neutrophils # 0.0 K/mm3 11/21/21 19:36 Lymphocytes # (Manual) 0.7 K/mm3 (1.2-5.4) L 11/21/21 19:36 Abs React Lymphs (Man) 0.0 K/mm3 11/21/21 19:36 Monocytes # (Manual) 0.5 K/mm3 (0.0-0.8) 11/21/21 19:36 Eosinophils # (Manual) 0.0 K/mm3 (0.0-0.4) 11/21/21 19:36 Basophils # (Manual) 0.2 K/mm3 (0.0-0.1) H 11/21/21 19:36 Metamyelocytes # 0.0 K/mm3 11/21/21 19:36 Myelocytes # 0.0 K/mm3 11/21/21 19:36 Promyelocytes # 0.0 K/mm3 11/21/21 19:36 Blast Cells # 0.0 K/mm3 11/21/21 19:36 WBC Morphology Not Reportable 11/21/21 19:36 Hypersegmented Neuts Not Reportable 11/21/21 19:36 Hyposegmented Neuts Not Reportable 11/21/21 19:36 Hypogranular Neuts Not Reportable 11/21/21 19:36 Smudge Cells Not Reportable 11/21/21 19:36 Toxic Granulation Not Reportable 11/21/21 19:36 Toxic Vacuolation Not Reportable 11/21/21 19:36 Dohle Bodies Not Reportable 11/21/21 19:36 Pelger-Huet Anomaly Not Reportable 11/21/21 19:36 Luan Rods Not Reportable 11/21/21 19:36 Platelet Estimate Consistent w auto 11/21/21 19:36 Clumped Platelets Not Reportable 11/21/21 19:36 Plt Clumps, EDTA Not Reportable 11/21/21 19:36 Large Platelets Not Reportable 11/21/21 19:36 Giant Platelets Not Reportable 11/21/21 19:36 Platelet Satelliting Not Reportable 11/21/21 19:36 Plt Morphology Comment Not Reportable 11/21/21 19:36 RBC Morphology Normal 11/21/21 19:36 Dimorphic RBCs Not Reportable 11/21/21 19:36 Polychromasia Not Reportable 11/21/21 19:36 Hypochromasia Not Reportable 11/21/21 19:36 Poikilocytosis Not Reportable 11/21/21 19:36 Anisocytosis Not Reportable 11/21/21 19:36 Microcytosis Not Reportable 11/21/21 19:36 Macrocytosis Not Reportable 11/21/21 19:36 Spherocytes Not Reportable 11/21/21 19:36 Pappenheimer Bodies Not Reportable 11/21/21 19:36 Sickle Cells Not Reportable 11/21/21 19:36 Target Cells Not Reportable 11/21/21 19:36 Tear Drop Cells Not Reportable 11/21/21 19:36 Ovalocytes Not Reportable 11/21/21 19:36 Helmet Cells Not Reportable 11/21/21 19:36 Christie-Balm Bodies Not Reportable 11/21/21 19:36 [place] Rings Not Reportable 11/21/21 19:36 [place] Cells Not Reportable 11/21/21 19:36 Bite Cells Not Reportable 11/21/21 19:36 Crenated Cell Not Reportable 11/21/21 19:36 Elliptocytes Not Reportable 11/21/21 19:36 Acanthocytes (Spur) Not Reportable 11/21/21 19:36 Rouleaux Not Reportable 11/21/21 19:36 Hemoglobin C Crystals Not Reportable 11/21/21 19:36 Schistocytes Not Reportable 11/21/21 19:36 Malaria parasites Not Reportable 11/21/21 19:36 Kalia Bodies Not Reportable 11/21/21 19:36 Hem Pathologist Commnt No 11/21/21 19:36 D-Dimer 1279.46 ng/mlDDU (0-234) H 11/26/21 16:44 ABG pH 7.379 pH Units (7.350-7.450) 12/13/21 00:30 ABG pCO2 42.6 mm Hg 12/13/21 00:30 ABG pO2 125.3 mm Hg (80.0-90.0) H 12/13/21 00:30 ABG HCO3 24.6 mmol/L (20.0-26.0) 12/13/21 00:30 ABG O2 Saturation 98.4 % (95.0-99.0) 12/13/21 00:30 ABG O2 Content 14.3 (0.0-44) 12/13/21 00:30 ABG Base Excess -0.6 mmol/L (-2.0-3.0) 12/13/21 00:30 ABG Hemoglobin 10.4 gm/dl (14.0-18.0) L 12/13/21 00:30 ABG Carboxyhemoglobin 1.8 % (0.0-5.0) 12/13/21 00:30 ABG Methemoglobin 0.5 % (0.0-1.5) 12/13/21 00:30 Oxyhemoglobin 96.0 % (95.0-99.0) 12/13/21 00:30 FiO2 36 % 12/13/21 00:30 Sodium 140 mmol/L (137-145) 12/12/21 07:13 Potassium 4.1 mmol/L (3.6-5.0) 12/12/21 07:13 Chloride 109.1 mmol/L (98-107) H 12/12/21 07:13 Carbon Dioxide 22 mmol/L (22-30) 12/12/21 07:13 Anion Gap 13 mmol/L 12/12/21 07:13 BUN 13 mg/dL (9-20) 12/12/21 07:13 Creatinine 1.3 mg/dL (0.8-1.3) 12/12/21 07:13 Estimated GFR > 60 ml/min 12/12/21 07:13 BUN/Creatinine Ratio 10 % 12/12/21 07:13 Glucose 18 mg/dL (75-100) L* 12/12/21 22:41 POC Glucose 217 mg/dL (70-105) H 12/14/21 07:30 Osmolality 316 Mosm/kg 11/27/21 Unknown Uric Acid 9.8 mg/dL (3.5-7.6) H 11/27/21 Unknown Calcium 8.2 mg/dL (8.4-10.2) L 12/12/21 07:13 Phosphorus 1.90 mg/dL (2.5-4.5) L 12/03/21 04:00 Magnesium 2.30 mg/dL (1.7-2.3) 12/07/21 05:36 Total Bilirubin 0.40 mg/dL (0.1-1.2) 11/28/21 06:47 AST 22 units/L (5-40) 11/28/21 06:47 ALT 28 units/L (7-56) 11/28/21 06:47 Alkaline Phosphatase 197 units/L (35-129) H 11/28/21 06:47 Ammonia 12.0 umol/L (25-60) L 11/28/21 12:59 C-Reactive Protein 13.00 mg/dL (0.00-1.30) H 11/27/21 05:17 Total Protein 5.6 g/dL (6.3-8.2) L 11/28/21 06:47 Albumin 2.5 g/dL (3.9-5) L 11/28/21 06:47 Albumin/Globulin Ratio 0.8 % 11/28/21 06:47 Procalcitonin 3.10 ng/mL (<0.15) 11/26/21 08:21 TSH 4.800 mlU/mL (0.270-4.200) H 11/21/21 19:37 Urine Color Kimberli (Yellow) 11/27/21 Unknown Urine Turbidity Slightly-cloudy (Clear) 11/27/21 Unknown Urine pH 5.0 (5.0-7.0) 11/27/21 Unknown Ur Specific [place] 1.013 (1.003-1.030) 11/27/21 Unknown Urine Protein <15 mg/dl mg/dL (Negative) 11/27/21 Unknown Urine Glucose (UA) 50 mg/dL (Negative) 11/27/21 Unknown Urine Ketones Tr mg/dL (Negative) 11/27/21 Unknown Urine Blood Neg (Negative) 11/27/21 Unknown Urine Nitrite Neg (Negative) 11/27/21 Unknown Urine Bilirubin Neg (Negative) 11/27/21 Unknown Urine Urobilinogen < 2.0 mg/dL (<2.0) 11/27/21 Unknown Ur Leukocyte Esterase Neg (Negative) 11/27/21 Unknown Urine WBC (Auto) 13.0 /HPF (0.0-6.0) H 11/27/21 Unknown Urine RBC (Auto) 2.0 /HPF (0.0-6.0) 11/27/21 Unknown U Epithel Cells (Auto) 1.0 /HPF (0-13.0) 11/27/21 Unknown Urine Bacteria (Auto) 1+ /HPF (Negative) 11/27/21 Unknown Urine Mucus Few /HPF 11/27/21 Unknown Urine Yeast (Budding) 2+ /HPF 11/27/21 Unknown Urine Creatinine 80.9 mg/dL (0.1-20.0) H 11/27/21 Unknown Urine Sodium 36 mmol/L 11/27/21 Unknown Urine Total Protein 43 mg/dL (5-11.8) H 11/27/21 Unknown Coronavirus (PCR) Positive (Negative) A 11/23/21 Unknown Fritz/IV: Voiding Method Condom Catheter Active Medications - Current Medications Current Medications: Generic Name Dose Route Start Last Admin Trade Name Freq PRN Reason Stop Dose Admin Acetaminophen 650 mg 11/22/21 05:48 Acetaminophen 325 Mg Tab PO Q4H PRN Pain MILD(1-3)/Fever >100.5/BRODY Albuterol 2.5 mg 11/25/21 12:00 Albuterol 2.5 Mg/3 Ml Nebu IH Q4HRT PRN Shortness Of Breath Dextrose 0 ml 12/13/21 00:12 12/13/21 00:23 Dextrose 10% *Hypoglycemia IV 250 ml PRN PRN Administration Hypoglycemia Docusate Sodium 100 mg 12/13/21 22:00 12/13/21 23:34 Docusate Sodium 100 Mg/10 Ml Oral Liqd FEEDTUBE 100 mg BID NANDINI Administration Enoxaparin Sodium 70 mg 11/26/21 12:30 12/13/21 23:34 Enoxaparin 80 Mg/0.8 Ml Inj SUB-Q 70 mg Q12HR NANDINI Administration Furosemide 40 mg 12/14/21 08:26 Furosemide 40 Mg/4 Ml Inj IV 12/14/21 08:27 ONCE ONE Haloperidol Lactate 5 mg 12/07/21 15:34 12/08/21 10:42 Haloperidol Lactate 5 Mg/1 Ml Inj IM 5 mg Q6H PRN Administration Agitation Hydromorphone HCl 0.5 mg 11/22/21 05:48 11/23/21 06:02 Hydromorphone 1 Mg/1 Ml Inj IV 0.5 mg Q3H PRN Administration Pain , Severe (7-10) Dextrose 1,000 mls @ 75 mls/hr 12/13/21 00:20 12/13/21 02:17 D10w IV 75 mls/hr DIRECT NANDINI Administration Lorazepam 2 mg 12/08/21 10:00 12/14/21 06:32 Lorazepam 2 Mg/Ml Vial IV Not Given Q4HR NANDINI Morphine Sulfate 2 mg 11/22/21 05:48 12/03/21 21:38 Morphine 2 Mg/1 Ml Inj IV 2 mg Q4H PRN Administration Pain, Moderate (4-6) Ondansetron HCl 4 mg 11/22/21 05:48 12/03/21 21:38 Ondansetron 4 Mg/2 Ml Inj IV 4 mg Q8H PRN Administration Nausea And Vomiting Sodium Chloride 10 ml 11/22/21 10:00 12/13/21 23:35 Sodium Chloride 0.9% 10 Ml Flush Syringe IV Not Given BID NANDINI Sodium Chloride 10 ml 11/22/21 05:48 Sodium Chloride 0.9% 10 Ml Flush Syringe IV PRN PRN LINE FLUSH Nutrition/Malnutrition Assess - Dietary Evaluation Nutrition/Malnutrition Findings: Nutrition Notes Start: 11/22/21 14:16 Freq: Status: Active Protocol: Document 12/11/21 12:13 NICKO (Rec: 12/11/21 12:34 NICKO [id number]) Nutrition Notes Initial or Follow up Reassessment Current Diagnosis Acute Kidney Injury,COPD, Coronary Artery Disease, Diabetes,Respiratory Failure Other Pertinent Diagnosis COVID-19, Pneumonia, Metabolic encephalopathy, Cardiomyopathy, HFrEF. Current Diet TF-Promote @ 57 ml/hr (since D 12/11). Height 5 ft 11 in Weight 68.6 kg [place] Body Weight (kg) 78.18 BMI 21.1 Weight change and time frame 0.2 Kg body weight loss in 3 days reported. Weight Status Overweight Subjective/Other Information RD consult for write/manage TF . Pt's PO intake continues to be neglible, MD requested TF order. Percent of energy/protein needs met: Prescribed TF-Promote @ 57 ml/ hr provides for energy/protein needs (1,378 Kcal/86 g) during LOS, 75% Kcal; 100% AA. Current % PO Other Minimum of two criteria No #3 Nutrition Diagnosis Inadequate oral intake, Inadequate protein-energy intake Etiology Ongoing and concomitant chronic metabolic conditions. As Evidenced by Signs and Symptoms Pt's plrolongued neglible PO intake of meals. Is patient on ventilator? No Is Patient Ambulatory and/or Out of Bed Yes REE-([place]-St. Jeor-ambulatory/OOB) [ 1837.069 [id number]] Calculation Used for Recommendations 70-80% of EEN. Additional Notes 15-20 Kcal/Kg ABW. Protein: 1.2-2 g/Kg; 83-138 g/ day. Fluids: 1 ml/Kcal, or as per MD. Nutrition Intervention Change Diet Order: d/c Nutrition Support: Start Promote @ 57 ml/hr. Flush 110 ml water Q 4 hr, or as per MD. Kcal 1,378 Protein (gm) 86 Carbohydrates (gm) 179 Fat (gm) 36 Fluid (mL) 1,156 Fiber (gm) 0 % RDI: 75% Kcal; 100% AA. Goal #1 Provide at least 75% of energy /protein needs through Enteral Feeding during LOS. Follow-Up By: 12/15/21 Additional Comments Continue monitoring TF tolerance and BM.
[2021-12-14] MEDS: DOCUSATE SODIUM 100 MG/10 ML ORAL LIQD FEEDTUBE SCH ×2 (11:15→22:08)
[2021-12-14] MEDS: ENOXAPARIN 80 MG/0.8 ML INJ SUB-Q SCH ×2 (11:16→22:08)
[2021-12-14 15:11] LABS: BUN/Creatinine Ratio 18; Blood Urea Nitrogen 24 mg/dL (9-20); Calcium 7.9 mg/dL (8.4-10.2); Hemolysis Index 143
--- NOTE | 2021-12-14 17:22 | XRay Report ---
ABDOMEN 1 VIEW INDICATION / CLINICAL INFORMATION: NG tube placement. COMPARISON: KUB from 12/11/2021. FINDINGS: TUBES / LINES: An NG tube terminates over the gastric fundus. BOWEL GAS PATTERN: No significant abnormality. FREE AIR / EXTRALUMINAL GAS: None seen. ADDITIONAL FINDINGS: No significant additional findings. IMPRESSION: 1. NG tube as above. No acute findings. Signer Name: Dick Rodriges MD Signed: 12/14/2021 5:17 PM Workstation Name: [id number]
[2021-12-15] MEDS: LORazepam 2 MG/ML VIAL IV SCH ×6 (02:53→21:51)
--- NOTE | 2021-12-15 07:29 | Progress Note ---
Assessment and Plan Assessment and plan: #Acute metabolic encephalopathy -CT head negative for acute findings; MRI unable to be performed secondary to agitation -Etiology unknown, mentation improves as sodium level improves -Delirium precautions -Avoid sedation #Poor oral intake -patient noted to have poor oral intake -ST eval ordered; may possibly need PEG tube placement; will discuss with spouse -dobhoff placed for TF in meantime #Acute hypoxic respiratory failure-improving #COVID-19 pneumonia-stable -currently on 2L NC -Was not candidate for remdesivir due to initial ROSANA -s/p steroids x10 days -continue lovenox #Hypoglycemia #hx of Insulin-dependent type 2 diabetes -patient with glucose as low as 18. D10W infusion started -will discontinue SSI -Goal glucose 140-180 while inpatient #CAD #Chronic heart failure with reduced ejection fraction -TTE revealing EF of 35 to 40% #Bradycardia-improved -Cardiology following, assistance appreciated -Home beta-tee held #Hypertension -Blood pressure controlled, no meds while inpatient #ROSANA-resolved -Secondary to vasomotor nephropathy #UTI -Status post antibiotics -Urine culture shows 10-100 K Natalia species #Hypokalemia -We will continue to replete and monitor #Hypernatremia-resolved #Severe debility -Evaluated by PT and OT, recommendation for subacute rehab at discharge #Discharge planning -Pending SNF and possible PEG placement Disposition Plan: continue medical management History Interval history: Currently on 2L NC. Alert to person. Dobbhoff in place. Hospitalist Physical - Physical exam Narrative exam: GENERAL: Well-developed well-nourished. In no acute distress. HEENT: +Dobbhoff, NC CHEST/LUNGS: CTAB on room air HEART/CARDIOVASCULAR: RRR. No murmur, rubs or gallops appreciated. ABDOMEN: +BS. NT/ND. MUSCULOSKELETAL: No joint effusion EXTREMITIES: No cyanosis, clubbing or edema. PSYCH: Alert to self. - Constitutional Vitals: Temp Pulse Resp BP Pulse Ox 97.6 F 83 18 115/63 94 12/14/21 22:17 12/14/21 22:17 12/14/21 22:17 12/14/21 22:17 12/14/21 22:17 General appearance: Present: no acute distress, cachectic Results - Labs CBC & Chem 7: 12/04/21 07:17 12/14/21 14:16 Labs: Laboratory Last Values WBC 5.5 K/mm3 (4.5-11.0) 12/04/21 07:17 RBC 3.52 M/mm3 (3.65-5.03) L 12/04/21 07:17 Hgb 10.4 gm/dl (11.8-15.2) L 12/04/21 07:17 Hct 33.6 % (35.5-45.6) L 12/04/21 07:17 MCV 95 fl (84-94) H 12/04/21 07:17 MCH 30 pg (28-32) 12/04/21 07:17 MCHC 31 % (32-34) L 12/04/21 07:17 RDW 15.7 % (13.2-15.2) H 12/04/21 07:17 Plt Count 284 K/mm3 (140-440) 12/04/21 07:17 Lymph % (Auto) 17.8 % (13.4-35.0) 12/04/21 07:17 [place] % (Auto) 14.7 % (0.0-7.3) H 12/04/21 07:17 Eos % (Auto) 0.6 % (0.0-4.3) 12/04/21 07:17 Baso % (Auto) 0.4 % (0.0-1.8) 12/04/21 07:17 Lymph # (Auto) 1.0 K/mm3 (1.2-5.4) L 12/04/21 07:17 [place] # (Auto) 0.8 K/mm3 (0.0-0.8) 12/04/21 07:17 Eos # (Auto) 0.0 K/mm3 (0.0-0.4) 12/04/21 07:17 Baso # (Auto) 0.0 K/mm3 (0.0-0.1) 12/04/21 07:17 Add Manual Diff Complete 11/21/21 19:36 Total Counted 100 11/21/21 19:36 Seg Neutrophils % 66.5 % (40.0-70.0) 12/04/21 07:17 Seg Neuts % (Manual) 79.0 % (40.0-70.0) H 11/21/21 19:36 Lymphocytes % (Manual) 10.0 % (13.4-35.0) L 11/21/21 19:36 Monocytes % (Manual) 8.0 % (0.0-7.3) H 11/21/21 19:36 Basophils % (Manual) 3.0 % (0.0-1.8) H 11/21/21 19:36 Nucleated RBC % Not Reportable 11/21/21 19:36 Seg Neutrophils # 3.6 K/mm3 (1.8-7.7) 12/04/21 07:17 Seg Neutrophils # Man 5.3 K/mm3 (1.8-7.7) 11/21/21 19:36 Band Neutrophils # 0.0 K/mm3 11/21/21 19:36 Lymphocytes # (Manual) 0.7 K/mm3 (1.2-5.4) L 11/21/21 19:36 Abs React Lymphs (Man) 0.0 K/mm3 11/21/21 19:36 Monocytes # (Manual) 0.5 K/mm3 (0.0-0.8) 11/21/21 19:36 Eosinophils # (Manual) 0.0 K/mm3 (0.0-0.4) 11/21/21 19:36 Basophils # (Manual) 0.2 K/mm3 (0.0-0.1) H 11/21/21 19:36 Metamyelocytes # 0.0 K/mm3 11/21/21 19:36 Myelocytes # 0.0 K/mm3 11/21/21 19:36 Promyelocytes # 0.0 K/mm3 11/21/21 19:36 Blast Cells # 0.0 K/mm3 11/21/21 19:36 WBC Morphology Not Reportable 11/21/21 19:36 Hypersegmented Neuts Not Reportable 11/21/21 19:36 Hyposegmented Neuts Not Reportable 11/21/21 19:36 Hypogranular Neuts Not Reportable 11/21/21 19:36 Smudge Cells Not Reportable 11/21/21 19:36 Toxic Granulation Not Reportable 11/21/21 19:36 Toxic Vacuolation Not Reportable 11/21/21 19:36 Dohle Bodies Not Reportable 11/21/21 19:36 Pelger-Huet Anomaly Not Reportable 11/21/21 19:36 Luan Rods Not Reportable 11/21/21 19:36 Platelet Estimate Consistent w auto 11/21/21 19:36 Clumped Platelets Not Reportable 11/21/21 19:36 Plt Clumps, EDTA Not Reportable 11/21/21 19:36 Large Platelets Not Reportable 11/21/21 19:36 Giant Platelets Not Reportable 11/21/21 19:36 Platelet Satelliting Not Reportable 11/21/21 19:36 Plt Morphology Comment Not Reportable 11/21/21 19:36 RBC Morphology Normal 11/21/21 19:36 Dimorphic RBCs Not Reportable 11/21/21 19:36 Polychromasia Not Reportable 11/21/21 19:36 Hypochromasia Not Reportable 11/21/21 19:36 Poikilocytosis Not Reportable 11/21/21 19:36 Anisocytosis Not Reportable 11/21/21 19:36 Microcytosis Not Reportable 11/21/21 19:36 Macrocytosis Not Reportable 11/21/21 19:36 Spherocytes Not Reportable 11/21/21 19:36 Pappenheimer Bodies Not Reportable 11/21/21 19:36 Sickle Cells Not Reportable 11/21/21 19:36 Target Cells Not Reportable 11/21/21 19:36 Tear Drop Cells Not Reportable 11/21/21 19:36 Ovalocytes Not Reportable 11/21/21 19:36 Helmet Cells Not Reportable 11/21/21 19:36 [place] Bodies Not Reportable 11/21/21 19:36 [place] Rings Not Reportable 11/21/21 19:36 Star Cells Not Reportable 11/21/21 19:36 Bite Cells Not Reportable 11/21/21 19:36 Crenated Cell Not Reportable 11/21/21 19:36 Elliptocytes Not Reportable 11/21/21 19:36 Acanthocytes (Spur) Not Reportable 11/21/21 19:36 Rouleaux Not Reportable 11/21/21 19:36 Hemoglobin C Crystals Not Reportable 11/21/21 19:36 Schistocytes Not Reportable 11/21/21 19:36 Malaria parasites Not Reportable 11/21/21 19:36 Kalia Bodies Not Reportable 11/21/21 19:36 Hem Pathologist Commnt No 11/21/21 19:36 D-Dimer 1279.46 ng/mlDDU (0-234) H 11/26/21 16:44 ABG pH 7.379 pH Units (7.350-7.450) 12/13/21 00:30 ABG pCO2 42.6 mm Hg 12/13/21 00:30 ABG pO2 125.3 mm Hg (80.0-90.0) H 12/13/21 00:30 ABG HCO3 24.6 mmol/L (20.0-26.0) 12/13/21 00:30 ABG O2 Saturation 98.4 % (95.0-99.0) 12/13/21 00:30 ABG O2 Content 14.3 (0.0-44) 12/13/21 00:30 ABG Base Excess -0.6 mmol/L (-2.0-3.0) 12/13/21 00:30 ABG Hemoglobin 10.4 gm/dl (14.0-18.0) L 12/13/21 00:30 ABG Carboxyhemoglobin 1.8 % (0.0-5.0) 12/13/21 00:30 ABG Methemoglobin 0.5 % (0.0-1.5) 12/13/21 00:30 Oxyhemoglobin 96.0 % (95.0-99.0) 12/13/21 00:30 FiO2 36 % 12/13/21 00:30 Sodium 140 mmol/L (137-145) 12/14/21 14:16 Potassium 5.2 mmol/L (3.6-5.0) H D 12/14/21 14:16 Chloride 109.0 mmol/L (98-107) H 12/14/21 14:16 Carbon Dioxide 25 mmol/L (22-30) 12/14/21 14:16 Anion Gap 11 mmol/L 12/14/21 14:16 BUN 24 mg/dL (9-20) H 12/14/21 14:16 Creatinine 1.3 mg/dL (0.8-1.3) 12/14/21 14:16 Estimated GFR > 60 ml/min 12/14/21 14:16 BUN/Creatinine Ratio 18 % 12/14/21 14:16 Glucose 237 mg/dL (75-100) H 12/14/21 14:16 POC Glucose 91 mg/dL (70-105) 12/15/21 06:17 Osmolality 316 Mosm/kg 11/27/21 Unknown Uric Acid 9.8 mg/dL (3.5-7.6) H 11/27/21 Unknown Calcium 7.9 mg/dL (8.4-10.2) L 12/14/21 14:16 Phosphorus 1.90 mg/dL (2.5-4.5) L 12/03/21 04:00 Magnesium 2.30 mg/dL (1.7-2.3) 12/07/21 05:36 Total Bilirubin 0.40 mg/dL (0.1-1.2) 11/28/21 06:47 AST 22 units/L (5-40) 11/28/21 06:47 ALT 28 units/L (7-56) 11/28/21 06:47 Alkaline Phosphatase 197 units/L (35-129) H 11/28/21 06:47 Ammonia 12.0 umol/L (25-60) L 11/28/21 12:59 C-Reactive Protein 13.00 mg/dL (0.00-1.30) H 11/27/21 05:17 Total Protein 5.6 g/dL (6.3-8.2) L 11/28/21 06:47 Albumin 2.5 g/dL (3.9-5) L 11/28/21 06:47 Albumin/Globulin Ratio 0.8 % 11/28/21 06:47 Procalcitonin 3.10 ng/mL (<0.15) 11/26/21 08:21 TSH 4.800 mlU/mL (0.270-4.200) H 11/21/21 19:37 Urine Color Kimberli (Yellow) 11/27/21 Unknown Urine Turbidity Slightly-cloudy (Clear) 11/27/21 Unknown Urine pH 5.0 (5.0-7.0) 11/27/21 Unknown Ur Specific [place] 1.013 (1.003-1.030) 11/27/21 Unknown Urine Protein <15 mg/dl mg/dL (Negative) 11/27/21 Unknown Urine Glucose (UA) 50 mg/dL (Negative) 11/27/21 Unknown Urine Ketones Tr mg/dL (Negative) 11/27/21 Unknown Urine Blood Neg (Negative) 11/27/21 Unknown Urine Nitrite Neg (Negative) 11/27/21 Unknown Urine Bilirubin Neg (Negative) 11/27/21 Unknown Urine Urobilinogen < 2.0 mg/dL (<2.0) 11/27/21 Unknown Ur Leukocyte Esterase Neg (Negative) 11/27/21 Unknown Urine WBC (Auto) 13.0 /HPF (0.0-6.0) H 11/27/21 Unknown Urine RBC (Auto) 2.0 /HPF (0.0-6.0) 11/27/21 Unknown U Epithel Cells (Auto) 1.0 /HPF (0-13.0) 11/27/21 Unknown Urine Bacteria (Auto) 1+ /HPF (Negative) 11/27/21 Unknown Urine Mucus Few /HPF 11/27/21 Unknown Urine Yeast (Budding) 2+ /HPF 11/27/21 Unknown Urine Creatinine 80.9 mg/dL (0.1-20.0) H 11/27/21 Unknown Urine Sodium 36 mmol/L 11/27/21 Unknown Urine Total Protein 43 mg/dL (5-11.8) H 11/27/21 Unknown Coronavirus (PCR) Positive (Negative) A 11/23/21 Unknown Fritz/IV: Voiding Method Condom Catheter Active Medications - Current Medications Current Medications: Generic Name Dose Route Start Last Admin Trade Name Freq PRN Reason Stop Dose Admin Acetaminophen 650 mg 11/22/21 05:48 Acetaminophen 325 Mg Tab PO Q4H PRN Pain MILD(1-3)/Fever >100.5/BRODY Albuterol 2.5 mg 11/25/21 12:00 Albuterol 2.5 Mg/3 Ml Nebu IH Q4HRT PRN Shortness Of Breath Dextrose 0 ml 12/13/21 00:12 12/13/21 00:23 Dextrose 10% *Hypoglycemia IV 250 ml PRN PRN Administration Hypoglycemia Docusate Sodium 100 mg 12/13/21 22:00 12/14/21 22:08 Docusate Sodium 100 Mg/10 Ml Oral Liqd FEEDTUBE 100 mg BID NANDINI Administration Enoxaparin Sodium 70 mg 11/26/21 12:30 12/14/21 22:08 Enoxaparin 80 Mg/0.8 Ml Inj SUB-Q 70 mg Q12HR NADNINI Administration Haloperidol Lactate 5 mg 12/07/21 15:34 12/08/21 10:42 Haloperidol Lactate 5 Mg/1 Ml Inj IM 5 mg Q6H PRN Administration Agitation Hydromorphone HCl 0.5 mg 11/22/21 05:48 11/23/21 06:02 Hydromorphone 1 Mg/1 Ml Inj IV 0.5 mg Q3H PRN Administration Pain , Severe (7-10) Dextrose 1,000 mls @ 75 mls/hr 12/13/21 00:20 12/13/21 02:17 D10w IV 75 mls/hr DIRECT NANDINI Administration Lorazepam 2 mg 12/08/21 10:00 12/15/21 06:18 Lorazepam 2 Mg/Ml Vial IV 2 mg Q4HR NANDINI Administration Morphine Sulfate 2 mg 11/22/21 05:48 12/03/21 21:38 Morphine 2 Mg/1 Ml Inj IV 2 mg Q4H PRN Administration Pain, Moderate (4-6) Ondansetron HCl 4 mg 11/22/21 05:48 12/03/21 21:38 Ondansetron 4 Mg/2 Ml Inj IV 4 mg Q8H PRN Administration Nausea And Vomiting Sodium Chloride 10 ml 11/22/21 10:00 12/14/21 22:09 Sodium Chloride 0.9% 10 Ml Flush Syringe IV 10 ml BID NANDINI Administration Sodium Chloride 10 ml 11/22/21 05:48 Sodium Chloride 0.9% 10 Ml Flush Syringe IV PRN PRN LINE FLUSH Nutrition/Malnutrition Assess - Dietary Evaluation Nutrition/Malnutrition Findings: Nutrition Notes Start: 11/22/21 14:16 Freq: Status: Active Protocol: Document 12/11/21 12:13 NICKO (Rec: 12/11/21 12:34 NICKO [id number]) Nutrition Notes Initial or Follow up Reassessment Current Diagnosis Acute Kidney Injury,COPD, Coronary Artery Disease, Diabetes,Respiratory Failure Other Pertinent Diagnosis COVID-19, Pneumonia, Metabolic encephalopathy, Cardiomyopathy, HFrEF. Current Diet TF-Promote @ 57 ml/hr (since D 12/11). Height 5 ft 11 in Weight 68.6 kg [place] Body Weight (kg) 78.18 BMI 21.1 Weight change and time frame 0.2 Kg body weight loss in 3 days reported. Weight Status Overweight Subjective/Other Information RD consult for write/manage TF . Pt's PO intake continues to be neglible, MD requested TF order. Percent of energy/protein needs met: Prescribed TF-Promote @ 57 ml/ hr provides for energy/protein needs (1,378 Kcal/86 g) during LOS, 75% Kcal; 100% AA. Current % PO Other Minimum of two criteria No #3 Nutrition Diagnosis Inadequate oral intake, Inadequate protein-energy intake Etiology Ongoing and concomitant chronic metabolic conditions. As Evidenced by Signs and Symptoms Pt's plrolongued neglible PO intake of meals. Is patient on ventilator? No Is Patient Ambulatory and/or Out of Bed Yes REE-([place]-St. Jeor-ambulatory/OOB) [ 1837.069 [id number]] Calculation Used for Recommendations 70-80% of EEN. Additional Notes 15-20 Kcal/Kg ABW. Protein: 1.2-2 g/Kg; 83-138 g/ day. Fluids: 1 ml/Kcal, or as per MD. Nutrition Intervention Change Diet Order: d/c Nutrition Support: Start Promote @ 57 ml/hr. Flush 110 ml water Q 4 hr, or as per MD. Kcal 1,378 Protein (gm) 86 Carbohydrates (gm) 179 Fat (gm) 36 Fluid (mL) 1,156 Fiber (gm) 0 % RDI: 75% Kcal; 100% AA. Goal #1 Provide at least 75% of energy /protein needs through Enteral Feeding during LOS. Follow-Up By: 12/15/21 Additional Comments Continue monitoring TF tolerance and BM.
--- NOTE | 2021-12-15 08:08 | XRay Report ---
ABDOMEN 1 VIEW(S) 0743 hours INDICATION / CLINICAL INFORMATION: verify Dobhoff placement. COMPARISON: Yesterday at 1659 hours FINDINGS: TUBES / LINES: The feeding tube is essentially unchanged terminating in the mid stomach. BOWEL GAS PATTERN: No significant abnormality. Markedly elevated left hemidiaphragm is again noted. T he bowel gas pattern is otherwise unremarkable. FREE AIR / EXTRALUMINAL GAS: None seen. ADDITIONAL FINDINGS: Patchy infiltrates are suspected at the lung bases. IMPRESSION: The feeding tube appears to terminate in the mid stomach when comparing to the CT abdomen pelvis date d 11/22/2021. There is marked elevation of the left hemidiaphragm. No overwhelming change since yesterd ay's exam. Signer Name: Raymond Chinchilla Jr, MD Signed: 12/15/2021 8:04 AM Workstation Name: [id number]
[2021-12-15] MEDS: DOCUSATE SODIUM 100 MG/10 ML ORAL LIQD FEEDTUBE SCH ×2 (09:57→21:51)
[2021-12-15] MEDS: ENOXAPARIN 80 MG/0.8 ML INJ SUB-Q SCH ×2 (09:57→21:51)
--- NOTE | 2021-12-15 15:33 | Progress Note ---
Subjective - Reason for Consult Consult date: 12/15/21 Reason for consult: Altered mental status - Chief Complaint Chief complaint: Patient seen resting in bed. He is on restraints and NG tube. The patient has his eyes closed and not engaging. REVIEW OF SYSTEMS MENTAL STATUS EXAMINATION Assessment (1)Dx (2) Current Visit: Yes Status: Acute Treatment plan Continue previous prescribed meds I agree with the current treatment plan. Risks, benefits and alternatives of medications discussed with the patient, questions answered and consent obtained from patient. PSYCHOTHERAPY: Supportive psychotherapy provided MEDICAL: Per primary team DELIRIUM PRECAUTIONS: Please re-orient patient frequently, keep lights on during the day, and minimize benzodiazepines and opiates as these medications could worsen patient's confusion. OCULARIST: Per medical team DISPOSITION: Do not Recommend acute inpatient psychiatric hospitalization. Will follow for medication management. Thank you for the consult. Please contact with any questions and/or concerns. Case staffed with Dr. Sanchez Medications and Allergies Mental Status Exam - Vital signs Last Vital Signs Temp 97.6 F 12/14/21 22:17 Pulse 83 12/14/21 22:17 Resp 18 12/14/21 22:17 BP 115/63 12/14/21 22:17 Pulse Ox 95 12/15/21 10:00
[2021-12-15 15:42] LABS: BUN/Creatinine Ratio 20; Blood Urea Nitrogen 22 mg/dL (9-20); Calcium 8.1 mg/dL (8.4-10.2); Hemolysis Index 10
--- NOTE | 2021-12-15 17:57 | Progress Note ---
Assessment and Plan Impression * Nonoliguric acute kidney injury secondary to prerenal azotemia (FeNa 0.5%) --Baseline SCr 1.3mg/dL * Acute hypoxic respiratory failure secondary to COVID 19 PNA * Severe COVID-19 pneumonia * Hypernatremia * Hypokalemia * Acute encephalopathy * Cardiomyopathy - EF 35% * Anemia * Urinary tract infection - Klebsiella pneumonia * Mild left hydronephrosis Recommendations * Renal function now at baseline. Na is trending up to 147 * Recommend free water intake as tolerated, note Lasix 12/14 which may contribute to increased sodium * Continue to hold MIREYA inhibitor/ARB at this time * Management of COVID-19 PNA per ID and primary team * Abx per ID * Maintain MAP >65 * Avoid potential nephrotoxins * Monitor lytes, fluid balance closely * Strict I/O * Will follow peripherally Subjective Date of service: 12/15/21 Principal diagnosis: Acute encephalopathy, Acute resp failure, Covid PNA, CMP, chronic HFrEF Interval history: Chart, vitals, labs reviewed. Objective - Exam Narrative Exam: Exam deferred, primary team exam noted - Vital Signs Vital signs: Vital Signs - 12hr 12/15/21 12/15/21 08:54 10:00 O2 Sat by Pulse 92 95 Oximetry - Lab 12/04/21 07:17 12/15/21 14:58 Most recent lab results ABG pH 7.379 pH Units (7.350-7.450) 12/13/21 00:30 ABG pCO2 42.6 mm Hg 12/13/21 00:30 ABG pO2 125.3 mm Hg (80.0-90.0) H 12/13/21 00:30 ABG HCO3 24.6 mmol/L (20.0-26.0) 12/13/21 00:30 ABG O2 Saturation 98.4 % (95.0-99.0) 12/13/21 00:30 Calcium 8.1 mg/dL (8.4-10.2) L 12/15/21 14:58 Phosphorus 1.90 mg/dL (2.5-4.5) L 12/03/21 04:00 Magnesium 2.30 mg/dL (1.7-2.3) 12/07/21 05:36 Urine Creatinine 80.9 mg/dL (0.1-20.0) H 11/27/21 Unknown Urine Sodium 36 mmol/L 11/27/21 Unknown Urine Total Protein 43 mg/dL (5-11.8) H 11/27/21 Unknown Medications & Allergies - Medications Allergies/Adverse Reactions: Allergies No Known Allergies Allergy (Verified 11/22/21 05:55) Home Medications: Home Medications Medication Instructions Recorded Confirmed Last Taken Type Furosemide [Lasix TAB] 80 mg PO TID 11/24/21 11/24/21 Unknown History Gabapentin [Neurontin] 300 mg PO BID 11/24/21 11/27/21 11/19/21 09:12 History 300 mg Sacubitril/Valsartan [Entresto 1 tab PO BID 11/24/21 11/27/21 11/19/21 09:12 History 49-51 mg] 1 tab Spironolactone [Aldactone] 25 mg PO QDAY 11/24/21 11/27/21 11/19/21 09:12 History 25 mg Tamsulosin [Flomax] 0.4 mg PO QDAY 11/24/21 11/27/21 11/18/21 22:02 History 0.4 mg carvediloL [Coreg] 6.25 mg PO BID 11/24/21 11/27/21 11/19/21 09:12 History 6.25mg AtorvaSTATin [Lipitor] 40 mg PO QHS 11/27/21 11/27/21 11/19/21 09:12 History 40 mg Insulin Glargine,Hum.rec.anlog 12 unit SQ QHS 11/27/21 11/27/21 11/18/21 22:02 History [Lantus Solostar] 12 units Insulin Lispro [Admelog] 1 - 12 unit SQ TIDAC 11/27/21 11/27/21 11/19/21 08:32 History 6 units Insulin Lispro [Admelog] 4 unit SQ TID 11/27/21 11/27/21 11/19/21 08:33 History 4 units oxyCODONE /ACETAMINOPHEN [Percocet 1 tab PO Q6HR PRN 11/27/21 11/27/21 11/19/21 03:57 History 5/325] 1 tab Active Medications: Generic Name Dose Route Start Last Admin Trade Name Freq PRN Reason Stop Dose Admin Acetaminophen 650 mg 11/22/21 05:48 Acetaminophen 325 Mg Tab PO Q4H PRN Pain MILD(1-3)/Fever >100.5/BRODY Albuterol 2.5 mg 11/25/21 12:00 Albuterol 2.5 Mg/3 Ml Nebu IH Q4HRT PRN Shortness Of Breath Dextrose 0 ml 12/13/21 00:12 12/13/21 00:23 Dextrose 10% *Hypoglycemia IV 250 ml PRN PRN Administration Hypoglycemia Docusate Sodium 100 mg 12/13/21 22:00 12/15/21 09:57 Docusate Sodium 100 Mg/10 Ml Oral Liqd FEEDTUBE 100 mg BID NANDINI Administration Enoxaparin Sodium 70 mg 11/26/21 12:30 12/15/21 09:57 Enoxaparin 80 Mg/0.8 Ml Inj SUB-Q 70 mg Q12HR NANDINI Administration Haloperidol Lactate 5 mg 12/07/21 15:34 12/08/21 10:42 Haloperidol Lactate 5 Mg/1 Ml Inj IM 5 mg Q6H PRN Administration Agitation Hydromorphone HCl 0.5 mg 11/22/21 05:48 11/23/21 06:02 Hydromorphone 1 Mg/1 Ml Inj IV 0.5 mg Q3H PRN Administration Pain , Severe (7-10) Dextrose 1,000 mls @ 75 mls/hr 12/13/21 00:20 12/13/21 02:17 D10w IV 75 mls/hr DIRECT NANDINI Administration Lorazepam 2 mg 12/08/21 10:00 12/15/21 17:00 Lorazepam 2 Mg/Ml Vial IV Not Given Q4HR NANDINI Morphine Sulfate 2 mg 11/22/21 05:48 12/03/21 21:38 Morphine 2 Mg/1 Ml Inj IV 2 mg Q4H PRN Administration Pain, Moderate (4-6) Ondansetron HCl 4 mg 11/22/21 05:48 12/03/21 21:38 Ondansetron 4 Mg/2 Ml Inj IV 4 mg Q8H PRN Administration Nausea And Vomiting Sodium Chloride 10 ml 11/22/21 10:00 12/15/21 09:57 Sodium Chloride 0.9% 10 Ml Flush Syringe IV 10 ml BID NANDINI Administration Sodium Chloride 10 ml 12/15/21 14:19 Sodium Chloride 0.9% 50 Ml Ivpb IV PRN PRN FLUSH
[2021-12-16] MEDS: LORazepam 2 MG/ML VIAL IV SCH ×2 (04:20→05:35)
--- NOTE | 2021-12-16 08:14 | Progress Note ---
Assessment and Plan Assessment and plan: 81-year-old man past medical history hypertension, diabetes presenting the hospital due to confusion. He had been discharged from [facility] 2 days prior to admission and confusion had not improved since then. Family was unaware why he was in the hospital previously. Severe COVID-19 pneumonia: Patient presented with a week of symptoms, chest x- ray with diffuse bilateral infiltrates. Inflammatory markers elevated with Acute hypoxemic respiratory failure: #Acute metabolic encephalopathy -CT head negative for acute findings; MRI unable to be performed secondary to agitation -Etiology likely multifactorial including underlying dementia, Covid encephalopathy, dehydration and hyponatremia -Delirium precautions -Patient remains restless requiring wrist restraints to prevent him from pulling IV lines and NG tube. -Avoid sedation #Poor oral intake/dehydration -patient noted to have poor oral intake -ST eval ordered; recommended n.p.o. and tube feeds -dobhoff placed for TF in meantime, requested GI to place PEG tube. #Acute hypoxic respiratory failure-improving #COVID-19 pneumonia-stable -currently on 2L NC, stable -Was not candidate for remdesivir due to initial ROSANA -s/p steroids x10 days -continue lovenox #Hypoglycemia #hx of Insulin-dependent type 2 diabetes -patient with glucose as low as 18. D10W infusion started -will discontinue SSI -Goal glucose 140-180 while inpatient #CAD #Chronic heart failure with reduced ejection fraction -TTE revealing EF of 35 to 40% #Bradycardia-improved -Cardiology following, assistance appreciated -Home beta-tee held #Hypertension -Blood pressure controlled, no meds while inpatient #ROSANA-resolved -Secondary to vasomotor nephropathy #UTI -Status post antibiotics -Urine culture shows 10-100 K Natalia species #Hypokalemia -We will continue to replete and monitor #Hypernatremia-resolving On D10W infusion, nephrology following #Severe debility -Evaluated by PT and OT, recommendation for subacute rehab at discharge #Discharge planning -Pending SNF and possible PEG placement Discussed with the nursing staff and manager of case management Unable to contact the family by phone History Interval history: Patient remains confused, mostly nonverbal and restless requiring wrist restraints. Currently on 2-4 L of O2. Remains on D5W infusion for hyponatremia which is improving. Tolerating tube feeds. Blood glucose dropped when off tube feeds briefly. Requested GI for PEG tube placement. Family not available for contact on phone.. Hospitalist Physical - Constitutional Vitals: Temp Pulse Resp BP Pulse Ox 98.4 F 87 20 124/70 94 12/16/21 05:19 12/16/21 05:19 12/16/21 05:19 12/16/21 05:19 12/16/21 05:19 General appearance: Present: no acute distress, other (Nonverbal, confused) - EENT Eyes: Present: PERRL (Patient keeps eyes closed. ) ENT: other (Face symmetrical.) - Neck Neck: Present: supple - Respiratory Respiratory effort: normal Respiratory: bilateral: diminished - Cardiovascular Rhythm: regular - Extremities Extremity abnormal: edema (Trace) - Abdominal General gastrointestinal: soft, non-tender, non-distended, normal bowel sounds - Integumentary Integumentary: Absent: rash - Psychiatric Psychiatric: agitated - Neurologic Neurologic: other (Patient appears to be demented, confused, nonverbal, keeps eyes closed, wrist restraints in place.) Results - Labs CBC & Chem 7: 12/16/21 15:02 12/16/21 15:02 Labs: Laboratory Last Values WBC 5.5 K/mm3 (4.5-11.0) 12/04/21 07:17 RBC 3.52 M/mm3 (3.65-5.03) L 12/04/21 07:17 Hgb 10.4 gm/dl (11.8-15.2) L 12/04/21 07:17 Hct 33.6 % (35.5-45.6) L 12/04/21 07:17 MCV 95 fl (84-94) H 12/04/21 07:17 MCH 30 pg (28-32) 12/04/21 07:17 MCHC 31 % (32-34) L 12/04/21 07:17 RDW 15.7 % (13.2-15.2) H 12/04/21 07:17 Plt Count 284 K/mm3 (140-440) 12/04/21 07:17 Lymph % (Auto) 17.8 % (13.4-35.0) 12/04/21 07:17 [place] % (Auto) 14.7 % (0.0-7.3) H 12/04/21 07:17 Eos % (Auto) 0.6 % (0.0-4.3) 12/04/21 07:17 Baso % (Auto) 0.4 % (0.0-1.8) 12/04/21 07:17 Lymph # (Auto) 1.0 K/mm3 (1.2-5.4) L 12/04/21 07:17 [place] # (Auto) 0.8 K/mm3 (0.0-0.8) 12/04/21 07:17 Eos # (Auto) 0.0 K/mm3 (0.0-0.4) 12/04/21 07:17 Baso # (Auto) 0.0 K/mm3 (0.0-0.1) 12/04/21 07:17 Add Manual Diff Complete 11/21/21 19:36 Total Counted 100 11/21/21 19:36 Seg Neutrophils % 66.5 % (40.0-70.0) 12/04/21 07:17 Seg Neuts % (Manual) 79.0 % (40.0-70.0) H 11/21/21 19:36 Lymphocytes % (Manual) 10.0 % (13.4-35.0) L 11/21/21 19:36 Monocytes % (Manual) 8.0 % (0.0-7.3) H 11/21/21 19:36 Basophils % (Manual) 3.0 % (0.0-1.8) H 11/21/21 19:36 Nucleated RBC % Not Reportable 11/21/21 19:36 Seg Neutrophils # 3.6 K/mm3 (1.8-7.7) 12/04/21 07:17 Seg Neutrophils # Man 5.3 K/mm3 (1.8-7.7) 11/21/21 19:36 Band Neutrophils # 0.0 K/mm3 11/21/21 19:36 Lymphocytes # (Manual) 0.7 K/mm3 (1.2-5.4) L 11/21/21 19:36 Abs React Lymphs (Man) 0.0 K/mm3 11/21/21 19:36 Monocytes # (Manual) 0.5 K/mm3 (0.0-0.8) 11/21/21 19:36 Eosinophils # (Manual) 0.0 K/mm3 (0.0-0.4) 11/21/21 19:36 Basophils # (Manual) 0.2 K/mm3 (0.0-0.1) H 11/21/21 19:36 Metamyelocytes # 0.0 K/mm3 11/21/21 19:36 Myelocytes # 0.0 K/mm3 11/21/21 19:36 Promyelocytes # 0.0 K/mm3 11/21/21 19:36 Blast Cells # 0.0 K/mm3 11/21/21 19:36 WBC Morphology Not Reportable 11/21/21 19:36 Hypersegmented Neuts Not Reportable 11/21/21 19:36 Hyposegmented Neuts Not Reportable 11/21/21 19:36 Hypogranular Neuts Not Reportable 11/21/21 19:36 Smudge Cells Not Reportable 11/21/21 19:36 Toxic Granulation Not Reportable 11/21/21 19:36 Toxic Vacuolation Not Reportable 11/21/21 19:36 Dohle Bodies Not Reportable 11/21/21 19:36 Pelger-Huet Anomaly Not Reportable 11/21/21 19:36 Luan Rods Not Reportable 11/21/21 19:36 Platelet Estimate Consistent w auto 11/21/21 19:36 Clumped Platelets Not Reportable 11/21/21 19:36 Plt Clumps, EDTA Not Reportable 11/21/21 19:36 Large Platelets Not Reportable 11/21/21 19:36 Giant Platelets Not Reportable 11/21/21 19:36 Platelet Satelliting Not Reportable 11/21/21 19:36 Plt Morphology Comment Not Reportable 11/21/21 19:36 RBC Morphology Normal 11/21/21 19:36 Dimorphic RBCs Not Reportable 11/21/21 19:36 Polychromasia Not Reportable 11/21/21 19:36 Hypochromasia Not Reportable 11/21/21 19:36 Poikilocytosis Not Reportable 11/21/21 19:36 Anisocytosis Not Reportable 11/21/21 19:36 Microcytosis Not Reportable 11/21/21 19:36 Macrocytosis Not Reportable 11/21/21 19:36 Spherocytes Not Reportable 11/21/21 19:36 Pappenheimer Bodies Not Reportable 11/21/21 19:36 Sickle Cells Not Reportable 11/21/21 19:36 Target Cells Not Reportable 11/21/21 19:36 Tear Drop Cells Not Reportable 11/21/21 19:36 Ovalocytes Not Reportable 11/21/21 19:36 Helmet Cells Not Reportable 11/21/21 19:36 [place] Bodies Not Reportable 11/21/21 19:36 [place] Rings Not Reportable 11/21/21 19:36 Star Cells Not Reportable 11/21/21 19:36 Bite Cells Not Reportable 11/21/21 19:36 Crenated Cell Not Reportable 11/21/21 19:36 Elliptocytes Not Reportable 11/21/21 19:36 Acanthocytes (Spur) Not Reportable 11/21/21 19:36 Rouleaux Not Reportable 11/21/21 19:36 Hemoglobin C Crystals Not Reportable 11/21/21 19:36 Schistocytes Not Reportable 11/21/21 19:36 Malaria parasites Not Reportable 11/21/21 19:36 Kalia Bodies Not Reportable 11/21/21 19:36 Hem Pathologist Commnt No 11/21/21 19:36 D-Dimer 1279.46 ng/mlDDU (0-234) H 11/26/21 16:44 ABG pH 7.379 pH Units (7.350-7.450) 12/13/21 00:30 ABG pCO2 42.6 mm Hg 12/13/21 00:30 ABG pO2 125.3 mm Hg (80.0-90.0) H 12/13/21 00:30 ABG HCO3 24.6 mmol/L (20.0-26.0) 12/13/21 00:30 ABG O2 Saturation 98.4 % (95.0-99.0) 12/13/21 00:30 ABG O2 Content 14.3 (0.0-44) 12/13/21 00:30 ABG Base Excess -0.6 mmol/L (-2.0-3.0) 12/13/21 00:30 ABG Hemoglobin 10.4 gm/dl (14.0-18.0) L 12/13/21 00:30 ABG Carboxyhemoglobin 1.8 % (0.0-5.0) 12/13/21 00:30 ABG Methemoglobin 0.5 % (0.0-1.5) 12/13/21 00:30 Oxyhemoglobin 96.0 % (95.0-99.0) 12/13/21 00:30 FiO2 36 % 12/13/21 00:30 Sodium 147 mmol/L (137-145) H 12/15/21 14:58 Potassium 4.1 mmol/L (3.6-5.0) D 12/15/21 14:58 Chloride 111.3 mmol/L (98-107) H 12/15/21 14:58 Carbon Dioxide 27 mmol/L (22-30) 12/15/21 14:58 Anion Gap 13 mmol/L 12/15/21 14:58 BUN 22 mg/dL (9-20) H 12/15/21 14:58 Creatinine 1.1 mg/dL (0.8-1.3) 12/15/21 14:58 Estimated GFR > 60 ml/min 12/15/21 14:58 BUN/Creatinine Ratio 20 % 12/15/21 14:58 Glucose 214 mg/dL (75-100) H 12/15/21 14:58 POC Glucose 202 mg/dL (70-105) H 12/16/21 04:58 Osmolality 316 Mosm/kg 11/27/21 Unknown Uric Acid 9.8 mg/dL (3.5-7.6) H 11/27/21 Unknown Calcium 8.1 mg/dL (8.4-10.2) L 12/15/21 14:58 Phosphorus 1.90 mg/dL (2.5-4.5) L 12/03/21 04:00 Magnesium 2.30 mg/dL (1.7-2.3) 12/07/21 05:36 Total Bilirubin 0.40 mg/dL (0.1-1.2) 11/28/21 06:47 AST 22 units/L (5-40) 11/28/21 06:47 ALT 28 units/L (7-56) 11/28/21 06:47 Alkaline Phosphatase 197 units/L (35-129) H 11/28/21 06:47 Ammonia 12.0 umol/L (25-60) L 11/28/21 12:59 C-Reactive Protein 13.00 mg/dL (0.00-1.30) H 11/27/21 05:17 Total Protein 5.6 g/dL (6.3-8.2) L 11/28/21 06:47 Albumin 2.5 g/dL (3.9-5) L 11/28/21 06:47 Albumin/Globulin Ratio 0.8 % 11/28/21 06:47 Procalcitonin 3.10 ng/mL (<0.15) 11/26/21 08:21 TSH 4.800 mlU/mL (0.270-4.200) H 11/21/21 19:37 Urine Color Kimberli (Yellow) 11/27/21 Unknown Urine Turbidity Slightly-cloudy (Clear) 11/27/21 Unknown Urine pH 5.0 (5.0-7.0) 11/27/21 Unknown Ur Specific [place] 1.013 (1.003-1.030) 11/27/21 Unknown Urine Protein <15 mg/dl mg/dL (Negative) 11/27/21 Unknown Urine Glucose (UA) 50 mg/dL (Negative) 11/27/21 Unknown Urine Ketones Tr mg/dL (Negative) 11/27/21 Unknown Urine Blood Neg (Negative) 11/27/21 Unknown Urine Nitrite Neg (Negative) 11/27/21 Unknown Urine Bilirubin Neg (Negative) 11/27/21 Unknown Urine Urobilinogen < 2.0 mg/dL (<2.0) 11/27/21 Unknown Ur Leukocyte Esterase Neg (Negative) 11/27/21 Unknown Urine WBC (Auto) 13.0 /HPF (0.0-6.0) H 11/27/21 Unknown Urine RBC (Auto) 2.0 /HPF (0.0-6.0) 11/27/21 Unknown U Epithel Cells (Auto) 1.0 /HPF (0-13.0) 11/27/21 Unknown Urine Bacteria (Auto) 1+ /HPF (Negative) 11/27/21 Unknown Urine Mucus Few /HPF 11/27/21 Unknown Urine Yeast (Budding) 2+ /HPF 11/27/21 Unknown Urine Creatinine 80.9 mg/dL (0.1-20.0) H 11/27/21 Unknown Urine Sodium 36 mmol/L 11/27/21 Unknown Urine Total Protein 43 mg/dL (5-11.8) H 11/27/21 Unknown Coronavirus (PCR) Positive (Negative) A 11/23/21 Unknown Fritz/IV: Voiding Method Condom Catheter Active Medications - Current Medications Current Medications: Generic Name Dose Route Start Last Admin Trade Name Freq PRN Reason Stop Dose Admin Acetaminophen 650 mg 11/22/21 05:48 Acetaminophen 325 Mg Tab PO Q4H PRN Pain MILD(1-3)/Fever >100.5/BRODY Albuterol 2.5 mg 11/25/21 12:00 Albuterol 2.5 Mg/3 Ml Nebu IH Q4HRT PRN Shortness Of Breath Dextrose 0 ml 12/13/21 00:12 12/13/21 00:23 Dextrose 10% *Hypoglycemia IV 250 ml PRN PRN Administration Hypoglycemia Docusate Sodium 100 mg 12/13/21 22:00 12/15/21 21:51 Docusate Sodium 100 Mg/10 Ml Oral Liqd FEEDTUBE 100 mg BID NANDINI Administration Enoxaparin Sodium 70 mg 11/26/21 12:30 12/15/21 21:51 Enoxaparin 80 Mg/0.8 Ml Inj SUB-Q 70 mg Q12HR NANDINI Administration Haloperidol Lactate 5 mg 12/07/21 15:34 12/08/21 10:42 Haloperidol Lactate 5 Mg/1 Ml Inj IM 5 mg Q6H PRN Administration Agitation Hydromorphone HCl 0.5 mg 11/22/21 05:48 11/23/21 06:02 Hydromorphone 1 Mg/1 Ml Inj IV 0.5 mg Q3H PRN Administration Pain , Severe (7-10) Dextrose 1,000 mls @ 75 mls/hr 12/13/21 00:20 12/13/21 02:17 D10w IV 75 mls/hr DIRECT NANDINI Administration Lorazepam 2 mg 12/08/21 10:00 12/16/21 05:35 Lorazepam 2 Mg/Ml Vial IV 2 mg Q4HR NANDINI Administration Morphine Sulfate 2 mg 11/22/21 05:48 12/03/21 21:38 Morphine 2 Mg/1 Ml Inj IV 2 mg Q4H PRN Administration Pain, Moderate (4-6) Ondansetron HCl 4 mg 11/22/21 05:48 12/03/21 21:38 Ondansetron 4 Mg/2 Ml Inj IV 4 mg Q8H PRN Administration Nausea And Vomiting Sodium Chloride 10 ml 11/22/21 10:00 12/15/21 21:51 Sodium Chloride 0.9% 10 Ml Flush Syringe IV 10 ml BID NANDINI Administration Sodium Chloride 10 ml 12/15/21 14:19 Sodium Chloride 0.9% 50 Ml Ivpb IV PRN PRN FLUSH Nutrition/Malnutrition Assess - Dietary Evaluation Nutrition/Malnutrition Findings: Nutrition Notes Start: 11/22/21 14:16 Freq: Status: Active Protocol: Document 12/11/21 12:13 NICKO (Rec: 12/11/21 12:34 NICKO [id number]) Nutrition Notes Initial or Follow up Reassessment Current Diagnosis Acute Kidney Injury,COPD, Coronary Artery Disease, Diabetes,Respiratory Failure Other Pertinent Diagnosis COVID-19, Pneumonia, Metabolic encephalopathy, Cardiomyopathy, HFrEF. Current Diet TF-Promote @ 57 ml/hr (since D 12/11). Height 5 ft 11 in Weight 68.6 kg [place] Body Weight (kg) 78.18 BMI 21.1 Weight change and time frame 0.2 Kg body weight loss in 3 days reported. Weight Status Overweight Subjective/Other Information RD consult for write/manage TF . Pt's PO intake continues to be neglible, MD requested TF order. Percent of energy/protein needs met: Prescribed TF-Promote @ 57 ml/ hr provides for energy/protein needs (1,378 Kcal/86 g) during LOS, 75% Kcal; 100% AA. Current % PO Other Minimum of two criteria No #3 Nutrition Diagnosis Inadequate oral intake, Inadequate protein-energy intake Etiology Ongoing and concomitant chronic metabolic conditions. As Evidenced by Signs and Symptoms Pt's plrolongued neglible PO intake of meals. Is patient on ventilator? No Is Patient Ambulatory and/or Out of Bed Yes REE-([place]. Jeor-ambulatory/OOB) [ 1837.069 [id number]] Calculation Used for Recommendations 70-80% of EEN. Additional Notes 15-20 Kcal/Kg ABW. Protein: 1.2-2 g/Kg; 83-138 g/ day. Fluids: 1 ml/Kcal, or as per MD. Nutrition Intervention Change Diet Order: d/c Nutrition Support: Start Promote @ 57 ml/hr. Flush 110 ml water Q 4 hr, or as per MD. Kcal 1,378 Protein (gm) 86 Carbohydrates (gm) 179 Fat (gm) 36 Fluid (mL) 1,156 Fiber (gm) 0 % RDI: 75% Kcal; 100% AA. Goal #1 Provide at least 75% of energy /protein needs through Enteral Feeding during LOS. Follow-Up By: 12/15/21 Additional Comments Continue monitoring TF tolerance and BM.
--- NOTE | 2021-12-16 12:09 | Gastroenterology Consultation ---
History of Present Illness - Reason for Consult Consult date: 12/16/21 PEG placement Requesting physician: JEAN CLAUDE VANESSA - History of Present Illness This is an 81 yo male with pmh of HTN, DM, afib, HFrEF, and bladder cancer (in remission) admitted on 11/22/2021 for confusion. Hospital course complicated with acute respiratory failure with COVID-19 pneumonia and metabolic encephalopathy. GI consulted for PEG tube placement. Patient is altered and unable to give history or follow commands. Currently on 2 L of NC O2 and has NG tube for feeding and tolerating it well. Attempted to reach family on the phone, Tatyana Pena on her house phone [phone] and her cell but no answer. Medication list reviewed. Past History Past Medical History: atrial fib, CAD, cancer, COPD, diabetes, hypertension Past Surgical History: No surgical history Social history: no significant social history Family history: hypertension Medications and Allergies Allergies Allergy/AdvReac Type Severity Reaction Status Date / Time No Known Allergies Allergy Verified 11/22/21 05:55 Home Medications Medication Instructions Recorded Confirmed Last Taken Type Furosemide [Lasix TAB] 80 mg PO TID 11/24/21 11/24/21 Unknown History Gabapentin [Neurontin] 300 mg PO BID 11/24/21 11/27/21 11/19/21 09:12 History 300 mg Sacubitril/Valsartan [Entresto 1 tab PO BID 11/24/21 11/27/21 11/19/21 09:12 History 49-51 mg] 1 tab Spironolactone [Aldactone] 25 mg PO QDAY 11/24/21 11/27/21 11/19/21 09:12 History 25 mg Tamsulosin [Flomax] 0.4 mg PO QDAY 11/24/21 11/27/21 11/18/21 22:02 History 0.4 mg carvediloL [Coreg] 6.25 mg PO BID 11/24/21 11/27/21 11/19/21 09:12 History 6.25mg AtorvaSTATin [Lipitor] 40 mg PO QHS 11/27/21 11/27/21 11/19/21 09:12 History 40 mg Insulin Glargine,Hum.rec.anlog 12 unit SQ QHS 11/27/21 11/27/21 11/18/21 22:02 History [Lantus Solostar] 12 units Insulin Lispro [Admelog] 1 - 12 unit SQ TIDAC 11/27/21 11/27/21 11/19/21 08:32 History 6 units Insulin Lispro [Admelog] 4 unit SQ TID 11/27/21 11/27/21 11/19/21 08:33 History 4 units oxyCODONE /ACETAMINOPHEN [Percocet 1 tab PO Q6HR PRN 11/27/21 11/27/21 11/19/21 03:57 History 5/325] 1 tab Active Meds: Active Medications Acetaminophen (Acetaminophen 325 Mg Tab) 650 mg PO Q4H PRN PRN Reason: Pain MILD(1-3)/Fever >100.5/BRODY Albuterol (Albuterol 2.5 Mg/3 Ml Nebu) 2.5 mg IH Q4HRT PRN PRN Reason: Shortness Of Breath Dextrose (Dextrose 10% *Hypoglycemia) 0 ml IV PRN PRN PRN Reason: Hypoglycemia Last Admin: 12/13/21 00:23 Dose: 250 ml Docusate Sodium (Docusate Sodium 100 Mg/10 Ml Oral Liqd) 100 mg FEEDTUBE BID [facility] Last Admin: 12/15/21 21:51 Dose: 100 mg Enoxaparin Sodium (Enoxaparin 80 Mg/0.8 Ml Inj) 70 mg SUB-Q Q12HR [facility] Last Admin: 12/15/21 21:51 Dose: 70 mg Haloperidol Lactate (Haloperidol Lactate 5 Mg/1 Ml Inj) 5 mg IM Q6H PRN PRN Reason: Agitation Last Admin: 12/08/21 10:42 Dose: 5 mg Dextrose (D10w) 1,000 mls @ 75 mls/hr IV DIRECT [facility] Last Admin: 12/13/21 02:17 Dose: 75 mls/hr Ondansetron HCl (Ondansetron 4 Mg/2 Ml Inj) 4 mg IV Q8H PRN PRN Reason: Nausea And Vomiting Last Admin: 12/03/21 21:38 Dose: 4 mg Sodium Chloride (Sodium Chloride 0.9% 10 Ml Flush Syringe) 10 ml IV BID [facility] Last Admin: 12/15/21 21:51 Dose: 10 ml Sodium Chloride (Sodium Chloride 0.9% 50 Ml Ivpb) 10 ml IV PRN PRN PRN Reason: FLUSH Review of Systems - Review of Systems ROS unobtainable: due to mental status Exam - Constitutional Vital Signs: Temp Pulse Resp BP Pulse Ox 98.4 F 87 20 124/70 94 12/16/21 05:19 12/16/21 05:19 12/16/21 05:19 12/16/21 05:19 12/16/21 05:19 General appearance: no acute distress - EENT ENT: poor dentition - Neck Neck: supple - Respiratory Respiratory effort: normal - Cardiovascular Rhythm: regular Heart Sounds: Present: S1 & S2 Extremities: No edema - Gastrointestinal General gastrointestinal: Present: soft, non-tender, non-distended, other (surgical scar) - Integumentary Integumentary: Present: clear, warm. Absent: jaundice - Neurologic Neurological: other (lethargic) - Labs CBC & Chem 7: 12/04/21 07:17 12/15/21 14:58 Lab Results: Laboratory Results - last 24 hr 12/15/21 12/15/21 12/16/21 14:58 16:26 00:06 Sodium 147 H Potassium 4.1 D Chloride 111.3 H Carbon Dioxide 27 Anion Gap 13 BUN 22 H Creatinine 1.1 Estimated GFR > 60 BUN/Creatinine Ratio 20 Glucose 214 H POC Glucose 101 217 H Calcium 8.1 L 12/16/21 12/16/21 04:58 11:37 Sodium Potassium Chloride Carbon Dioxide Anion Gap BUN Creatinine Estimated GFR BUN/Creatinine Ratio Glucose POC Glucose 202 H 240 H Calcium Assessment and Plan This is an 81 yo male with pmh of HTN, DM, afib, HFrEF, and bladder cancer (in remission) admitted on 11/22/2021 for confusion. # Metabolic encephalopathy # COVID-19 pneumonia - patient currently with NG tube for tube feeds. - GI called for PEG tube placement - attempted to reach family on the phone but unsuccessful. - can tentatively plan for EGD/PEG tomorrow if able to obtain consent from family. Hold tube feeds MN and hold anticoagulation. - Patient Problems (1) Acute respiratory disease due to COVID-19 virus Current Visit: Yes Status: Acute (2) Metabolic encephalopathy Current Visit: Yes Status: Acute
[2021-12-16 15:24] LABS: Basophils # (Auto) 0.1 K/mm3 (0.0-0.1); Basophils % (Auto) 1.8 % (0.0-1.8); Eosinophils # (Auto) 0.3 K/mm3 (0.0-0.4); Eosinophils % (Auto) 3.6 % (0.0-4.3); Hematocrit 28.9 % (35.5-45.6); Hemoglobin 8.8 gm/dl (11.8-15.2); Lymphocytes # (Auto) 0.8 K/mm3 (1.2-5.4); Lymphocytes % (Auto) 11.2 % (13.4-35.0); Mean Corpuscular HGB Conc 31 % (32-34); Mean Corpuscular Volume 99 fl (84-94); Monocytes % (Auto) 14.6 % (0.0-7.3); Platelet Count 111 K/mm3 (140-440); Red Blood Count 2.91 M/mm3 (3.65-5.03); Red Cell Distribution Width 17.2 % (13.2-15.2)
[2021-12-16 15:43] LABS: BUN/Creatinine Ratio 21; Blood Urea Nitrogen 23 mg/dL (9-20); Calcium 8.6 mg/dL (8.4-10.2); Hemolysis Index 38
--- NOTE | 2021-12-16 16:55 | Progress Note ---
Assessment and Plan Impression * Nonoliguric acute kidney injury secondary to prerenal azotemia (FeNa 0.5%) --Baseline SCr 1.3mg/dL * Acute hypoxic respiratory failure secondary to COVID 19 PNA * Severe COVID-19 pneumonia * Hypernatremia * Hypokalemia * Acute encephalopathy * Cardiomyopathy - EF 35% * Anemia * Urinary tract infection - Klebsiella pneumonia * Mild left hydronephrosis Recommendations * Renal function now at baseline, creatinine 1.1 today. Na is trending up to 147->148 * Recommend free water intake as tolerated, note plan for PEG tube * Continue D5W if tolerated for now * Continue to hold MIREYA inhibitor/ARB at this time * Management of COVID-19 PNA per ID and primary team * Abx per ID * Maintain MAP >65 * Avoid potential nephrotoxins * Monitor lytes, fluid balance closely * Strict I/O * Will follow peripherally Subjective Date of service: 12/16/21 Principal diagnosis: Acute encephalopathy, Acute resp failure, Covid PNA, CMP, chronic HFrEF Interval history: Chart, vitals, labs reviewed. Objective - Exam Narrative Exam: Exam deferred, primary team exam noted - Vital Signs Vital signs: Vital Signs - 12hr 12/16/21 05:19 Temperature 98.4 F Pulse Rate 87 Respiratory 20 Rate Blood Pressure 124/70 O2 Sat by Pulse 94 Oximetry - Lab 12/16/21 15:02 12/16/21 15:02 Most recent lab results ABG pH 7.379 pH Units (7.350-7.450) 12/13/21 00:30 ABG pCO2 42.6 mm Hg 12/13/21 00:30 ABG pO2 125.3 mm Hg (80.0-90.0) H 12/13/21 00:30 ABG HCO3 24.6 mmol/L (20.0-26.0) 12/13/21 00:30 ABG O2 Saturation 98.4 % (95.0-99.0) 12/13/21 00:30 Calcium 8.6 mg/dL (8.4-10.2) 12/16/21 15:02 Phosphorus 1.90 mg/dL (2.5-4.5) L 12/03/21 04:00 Magnesium 2.30 mg/dL (1.7-2.3) 12/07/21 05:36 Urine Creatinine 80.9 mg/dL (0.1-20.0) H 11/27/21 Unknown Urine Sodium 36 mmol/L 11/27/21 Unknown Urine Total Protein 43 mg/dL (5-11.8) H 11/27/21 Unknown Medications & Allergies - Medications Allergies/Adverse Reactions: Allergies No Known Allergies Allergy (Verified 11/22/21 05:55) Home Medications: Home Medications Medication Instructions Recorded Confirmed Last Taken Type Furosemide [Lasix TAB] 80 mg PO TID 11/24/21 11/24/21 Unknown History Gabapentin [Neurontin] 300 mg PO BID 11/24/21 11/27/21 11/19/21 09:12 History 300 mg Sacubitril/Valsartan [Entresto 1 tab PO BID 11/24/21 11/27/21 11/19/21 09:12 History 49-51 mg] 1 tab Spironolactone [Aldactone] 25 mg PO QDAY 11/24/21 11/27/21 11/19/21 09:12 History 25 mg Tamsulosin [Flomax] 0.4 mg PO QDAY 11/24/21 11/27/21 11/18/21 22:02 History 0.4 mg carvediloL [Coreg] 6.25 mg PO BID 11/24/21 11/27/21 11/19/21 09:12 History 6.25mg AtorvaSTATin [Lipitor] 40 mg PO QHS 11/27/21 11/27/21 11/19/21 09:12 History 40 mg Insulin Glargine,Hum.rec.anlog 12 unit SQ QHS 11/27/21 11/27/21 11/18/21 22:02 History [Lantus Solostar] 12 units Insulin Lispro [Admelog] 1 - 12 unit SQ TIDAC 11/27/21 11/27/21 11/19/21 08:32 History 6 units Insulin Lispro [Admelog] 4 unit SQ TID 11/27/21 11/27/21 11/19/21 08:33 History 4 units oxyCODONE /ACETAMINOPHEN [Percocet 1 tab PO Q6HR PRN 11/27/21 11/27/21 11/19/21 03:57 History 5/325] 1 tab Active Medications: Generic Name Dose Route Start Last Admin Trade Name Freq PRN Reason Stop Dose Admin Acetaminophen 650 mg 11/22/21 05:48 Acetaminophen 325 Mg Tab PO Q4H PRN Pain MILD(1-3)/Fever >100.5/BRODY Albuterol 2.5 mg 11/25/21 12:00 Albuterol 2.5 Mg/3 Ml Nebu IH Q4HRT PRN Shortness Of Breath Dextrose 0 ml 12/13/21 00:12 12/13/21 00:23 Dextrose 10% *Hypoglycemia IV 250 ml PRN PRN Administration Hypoglycemia Docusate Sodium 100 mg 12/13/21 22:00 12/15/21 21:51 Docusate Sodium 100 Mg/10 Ml Oral Liqd FEEDTUBE 100 mg BID NANDINI Administration Haloperidol Lactate 5 mg 12/07/21 15:34 12/08/21 10:42 Haloperidol Lactate 5 Mg/1 Ml Inj IM 5 mg Q6H PRN Administration Agitation Dextrose 1,000 mls @ 75 mls/hr 12/13/21 00:20 12/13/21 02:17 D10w IV 75 mls/hr DIRECT NANDINI Administration Ondansetron HCl 4 mg 11/22/21 05:48 12/03/21 21:38 Ondansetron 4 Mg/2 Ml Inj IV 4 mg Q8H PRN Administration Nausea And Vomiting Sodium Chloride 10 ml 11/22/21 10:00 12/15/21 21:51 Sodium Chloride 0.9% 10 Ml Flush Syringe IV 10 ml BID NANDINI Administration Sodium Chloride 10 ml 12/15/21 14:19 Sodium Chloride 0.9% 50 Ml Ivpb IV PRN PRN FLUSH
[2021-12-16] MEDS: DEXTROSE 10% IN WATER 1,000 ML IV SCH (23:44)
[2021-12-16] MEDS: DEXTROSE 10% *Hypoglycemia IV PRN (23:44)
--- NOTE | 2021-12-17 08:24 | Event Note ---
Date: 12/17/21 Attempted reach family at multiple different numbers listed but no answer after multiple attempts. Could not discuss PEG tube with family.
[2021-12-17] MEDS: DOCUSATE SODIUM 100 MG/10 ML ORAL LIQD FEEDTUBE SCH ×2 (09:15→21:29)
[2021-12-17 10:14] LABS: BUN/Creatinine Ratio 19; Blood Urea Nitrogen 21 mg/dL (9-20); Calcium 8.7 mg/dL (8.4-10.2); Hemolysis Index 23
[2021-12-17] MEDS ORDERED: WATER FOR IRRIG STERILE 250 ML BOTTLE IR ONE (10:24)
[2021-12-17] MEDS ORDERED: WATER FOR IRRIG STERILE 1,000 ML BOTTLE ONE (10:24)
[2021-12-17] MEDS ORDERED: SODIUM CHLORIDE 0.9% 1000 ML 1,000 ML ONE (10:25)
[2021-12-17] MEDS ORDERED: ceFAZolin/Water 2 GM/20 ML 2 GM/20 ML SYRINGE IV ONE (10:45)
[2021-12-17] MEDS ORDERED: ceFAZolin/STERILE WATER 2 GM/20 ML SYRINGE IV ONE (11:20)
--- NOTE | 2021-12-17 11:21 | Progress Note ---
Assessment and Plan Impression * Nonoliguric acute kidney injury secondary to prerenal azotemia (FeNa 0.5%) --Baseline SCr 1.3mg/dL * Acute hypoxic respiratory failure secondary to COVID 19 PNA * Severe COVID-19 pneumonia * Hypernatremia * Hypokalemia * Acute encephalopathy * Cardiomyopathy - EF 35% * Anemia * Urinary tract infection - Klebsiella pneumonia * Mild left hydronephrosis Recommendations * Renal function now at baseline, creatinine 1.1 today. Na was trending up to 147->148, improved to 145 * Recommend free water intake as tolerated, note plan for PEG tube * Continue D5W if tolerated for now * Continue to hold MIREYA inhibitor/ARB at this time * Management of COVID-19 PNA per ID and primary team * Abx per ID * Maintain MAP >65 * Avoid potential nephrotoxins * Monitor lytes, fluid balance closely * Strict I/O * Nephrology will sign off given stable labs, please do not hesitate to reach out to us as needed at [phone] Subjective Date of service: 12/17/21 Principal diagnosis: Acute encephalopathy, Acute resp failure, Covid PNA, CMP, chronic HFrEF Interval history: Chart, vitals, labs reviewed. Objective - Exam Narrative Exam: Exam deferred, primary team exam noted - Vital Signs Vital signs: Vital Signs - 12hr 12/17/21 12/17/21 04:49 10:26 Pulse Rate 77 Blood Pressure 113/59 O2 Sat by Pulse 96 96 Oximetry - Lab 12/16/21 15:02 12/17/21 08:40 Most recent lab results ABG pH 7.379 pH Units (7.350-7.450) 12/13/21 00:30 ABG pCO2 42.6 mm Hg 12/13/21 00:30 ABG pO2 125.3 mm Hg (80.0-90.0) H 12/13/21 00:30 ABG HCO3 24.6 mmol/L (20.0-26.0) 12/13/21 00:30 ABG O2 Saturation 98.4 % (95.0-99.0) 12/13/21 00:30 Calcium 8.7 mg/dL (8.4-10.2) 12/17/21 08:40 Phosphorus 1.90 mg/dL (2.5-4.5) L 12/03/21 04:00 Magnesium 2.30 mg/dL (1.7-2.3) 12/07/21 05:36 Urine Creatinine 80.9 mg/dL (0.1-20.0) H 11/27/21 Unknown Urine Sodium 36 mmol/L 11/27/21 Unknown Urine Total Protein 43 mg/dL (5-11.8) H 11/27/21 Unknown Medications & Allergies - Medications Allergies/Adverse Reactions: Allergies No Known Allergies Allergy (Verified 11/22/21 05:55) Home Medications: Home Medications Medication Instructions Recorded Confirmed Last Taken Type Furosemide [Lasix TAB] 80 mg PO TID 11/24/21 11/24/21 Unknown History Gabapentin [Neurontin] 300 mg PO BID 11/24/21 11/27/21 11/19/21 09:12 History 300 mg Sacubitril/Valsartan [Entresto 1 tab PO BID 11/24/21 11/27/21 11/19/21 09:12 History 49-51 mg] 1 tab Spironolactone [Aldactone] 25 mg PO QDAY 11/24/21 11/27/21 11/19/21 09:12 History 25 mg Tamsulosin [Flomax] 0.4 mg PO QDAY 11/24/21 11/27/21 11/18/21 22:02 History 0.4 mg carvediloL [Coreg] 6.25 mg PO BID 11/24/21 11/27/21 11/19/21 09:12 History 6.25mg AtorvaSTATin [Lipitor] 40 mg PO QHS 11/27/21 11/27/21 11/19/21 09:12 History 40 mg Insulin Glargine,Hum.rec.anlog 12 unit SQ QHS 11/27/21 11/27/21 11/18/21 22:02 History [Lantus Solostar] 12 units Insulin Lispro [Admelog] 1 - 12 unit SQ TIDAC 11/27/21 11/27/21 11/19/21 08:32 History 6 units Insulin Lispro [Admelog] 4 unit SQ TID 11/27/21 11/27/21 11/19/21 08:33 History 4 units oxyCODONE /ACETAMINOPHEN [Percocet 1 tab PO Q6HR PRN 11/27/21 11/27/2121 03:57 History 5/325] 1 tab Active Medications: Generic Name Dose Route Start Last Admin Trade Name Freq PRN Reason Stop Dose Admin Acetaminophen 650 mg 11/22/21 05:48 Acetaminophen 325 Mg Tab PO Q4H PRN Pain MILD(1-3)/Fever >100.5/BRODY Albuterol 2.5 mg 11/25/21 12:00 Albuterol 2.5 Mg/3 Ml Nebu IH Q4HRT PRN Shortness Of Breath Dextrose 0 ml 12/13/21 00:12 12/16/21 23:44 Dextrose 10% *Hypoglycemia IV 250 ml PRN PRN Administration Hypoglycemia Docusate Sodium 100 mg 12/13/21 22:00 12/17/21 09:15 Docusate Sodium 100 Mg/10 Ml Oral Liqd FEEDTUBE Not Given BID NANDINI Haloperidol Lactate 5 mg 12/07/21 15:34 12/08/21 10:42 Haloperidol Lactate 5 Mg/1 Ml Inj IM 5 mg Q6H PRN Administration Agitation Dextrose 1,000 mls @ 75 mls/hr 12/13/21 00:20 12/16/21 23:44 D10w IV 75 mls/hr DIRECT NANDINI Administration Ondansetron HCl 4 mg 11/22/21 05:48 12/03/21 21:38 Ondansetron 4 Mg/2 Ml Inj IV 4 mg Q8H PRN Administration Nausea And Vomiting Sodium Chloride 10 ml 11/22/21 10:00 12/17/21 09:15 Sodium Chloride 0.9% 10 Ml Flush Syringe IV 10 ml BID NANDINI Administration Sodium Chloride 10 ml 12/15/21 14:19 Sodium Chloride 0.9% 50 Ml Ivpb IV PRN PRN FLUSH
[2021-12-17] MEDS ORDERED: LIDOCAINE MPF (2%) 20 MG/1 ML VIAL 5 ML ONE (11:22)
[2021-12-17] MEDS ORDERED: propofoL 200 MG/20 ML VIAL IV ONE (11:23)
--- NOTE | 2021-12-17 11:26 | Anesthesia Day of Surgery ---
Anesthesia Day of Surgery - Day of Surgery Patient Examined: Yes Patient H&P Reviewed: Yes Patient is NPO: Yes
--- NOTE | 2021-12-17 11:30 | Anesthesia Consultation ---
Anesthesia Consult and Med Hx Date of service: 12/17/21 - Airway Anesthetic Teeth Evaluation: Poor, Chipped ROM Head & Neck: Adequate Mental/Hyoid Distance: Adequate Mallampati Class: Class II Intubation Access Assessment: Probably Good - Pre-Operative Health Status ASA Pre-Surgery Classification: ASA3 Proposed Anesthetic Plan: MAC - Pulmonary Hx Smoking: No Hx Respiratory Symptoms: Yes Hx Pneumonia: Yes (Recent COVID) - Cardiovascular System Hx Hypertension: Yes (EF 35.-40) Hx Cardia Arrhythmia: Yes (AFib) - Central Nervous System Hx Neuromuscular Disorder: Yes (AMS) - Endocrine Hx Renal Disease: Yes (ROSANA) Hx Insulin Dependent Diabetes: Yes - Hematic Hx Anemia: Yes Hx Sickle Cell Disease: No - Other Systems Hx Obesity: No
[2021-12-17] MEDS ORDERED: fentaNYL 100 MCG/2 ML INJ ONE (11:33)
[2021-12-17] MEDS ORDERED: ePHEDrine SULFATE 50 MG/1 ML INJ ONE (11:44)
--- NOTE | 2021-12-17 11:49 | Operative Report ---
Operative Report Operative Report: Date:12/17/2021 Endoscopist: Jose Hernadez MD (Jenny) EGD REPORT PREOPERATIVE DIAGNOSIS:dysphagia POSTOPERATIVE DIAGNOSIS:gastritis ESTIMATED BLOOD LOSS:minimal DESCRIPTION OF PROCEDURE: A high-resolution EGD scope was passed through the oropharynx, esophagus, stomach, and second portion of duodenum. The scope was carefully withdrawn. Retroflexion was performed in the stomach. At the end of the procedure, the scope was cleaned using normal technique. Vital signs monitored continuously throughout. SEDATION: Provided by Anesthesiology Services. COMPLICATIONS: None. FINDINGS: 1. Mild erythematous mucosa in the antrum and gastric body. 2. Normal duodenum exam. 3. Normal esophagus exam. 4. Attempt to place PEG but unable to find a good location in the stomach with transillumination or with one-to-one abdominal wall opposition. Likely 2/2 altered anatomy due to prior surgery, which is unknown what surgery was done. RECOMMENDATIONS: 1. Continue with NG tube for feeding. 2. Recommend surgery consult for surgical placement of PEG. Spoke with Dr. Briones. 3. Can resume lovenox. 4. Will sign off. Jose Hernadez MD (Jenny) [facility]
--- NOTE | 2021-12-17 16:53 | Post Anesthesia Evaluation ---
- Post Anesthesia Evaluation Patient Participated: Yes Airway Patent: Yes Stable Respiratory Function: Yes Nausea/Vomiting: No Temp > 96.8F: Yes Pain Manageable: Yes Adequeate Hydration: Yes Anesthesia Complications: No Block Receding Appropriately: Not Applicable Patient on Ventilator: No
--- NOTE | 2021-12-17 19:18 | Progress Note ---
Assessment and Plan Assessment and plan: 81-year-old man past medical history hypertension, diabetes presenting the hospital due to confusion. He had been discharged from [facility] 2 days prior to admission and confusion had not improved since then. Family was unaware why he was in the hospital previously. Severe COVID-19 pneumonia: Patient presented with a week of symptoms, chest x- ray with diffuse bilateral infiltrates. Inflammatory markers elevated with Acute hypoxemic respiratory failure: #Acute metabolic encephalopathy -CT head negative for acute findings; MRI unable to be performed secondary to agitation -Etiology likely multifactorial including underlying dementia, Covid encephalopathy, dehydration and hyponatremia -Delirium precautions -Patient remains restless requiring wrist restraints to prevent him from pulling IV lines and NG tube. -Avoid sedation #Poor oral intake/dehydration -patient noted to have poor oral intake -ST eval ordered; recommended n.p.o. and tube feeds -dobhoff placed for TF in meantime, requested GI to place PEG tube. -GI unable to place PEG tube due to history of multiple surgeries on 12/17, surgery consulted for the same. #Acute hypoxic respiratory failure-improving #COVID-19 pneumonia-stable -currently on 2-4 L NC, stable -Was not candidate for remdesivir due to initial ROSANA -s/p steroids x10 days -continue lovenox #Hypoglycemia #hx of Insulin-dependent type 2 diabetes -patient with glucose as low as 18. D10W infusion started -On tube feeds -will discontinue SSI -Goal glucose 140-180 while inpatient #CAD #Chronic heart failure with reduced ejection fraction -TTE revealing EF of 35 to 40% #Bradycardia-improved -Cardiology following, assistance appreciated -Home beta-tee held #Hypertension -Blood pressure controlled, no meds while inpatient #ROSANA-resolved -Secondary to vasomotor nephropathy #UTI -Status post antibiotics -Urine culture shows 10-100 K Natalia species #Hypokalemia -We will continue to replete and monitor #Hypernatremia-resolving On D10W infusion, nephrology following #Severe debility -Evaluated by PT and OT, recommendation for subacute rehab at discharge #Discharge planning -PEG tube to be placed, followed by discharge to SNF versus home hospice Discussed with the nursing staff and case supervisor Discussed with History Interval history: Patient remains pleased and restless needing wrist restraints. On 4 L of O2. Poorly verbal. GI unable to place PEG tube due to history of multiple surgeries. GI consulted for the same. Hospitalist Physical - Constitutional Vitals: Temp Pulse Resp BP Pulse Ox 97.8 F 67 16 121/58 100 12/17/21 11:48 12/17/21 12:18 12/17/21 12:18 12/17/21 12:18 12/17/21 12:18 General appearance: Present: no acute distress, other (Nonverbal, confused, sleepy, restless with wrist restraints.) - EENT Eyes: Present: PERRL (Keeps eyes closed) ENT: other (Face symmetrical) - Neck Neck: Present: supple - Respiratory Respiratory effort: normal Respiratory: bilateral: diminished - Cardiovascular Rhythm: regular - Extremities Extremities: No edema - Abdominal General gastrointestinal: soft, non-tender - Integumentary Integumentary: Absent: rash - Psychiatric Psychiatric: other (Restless/confused) - Neurologic Neurologic: other (Sleepy, nonverbal, confused/agitated, wrist restraints in place) Results - Labs CBC & Chem 7: 12/16/21 15:02 12/17/21 08:40 Labs: Laboratory Last Values WBC 7.0 K/mm3 (4.5-11.0) 12/16/21 15:02 RBC 2.91 M/mm3 (3.65-5.03) L 12/16/21 15:02 Hgb 8.8 gm/dl (11.8-15.2) L 12/16/21 15:02 Hct 28.9 % (35.5-45.6) L 12/16/21 15:02 MCV 99 fl (84-94) H 12/16/21 15:02 MCH 30 pg (28-32) 12/16/21 15:02 MCHC 31 % (32-34) L 12/16/21 15:02 RDW 17.2 % (13.2-15.2) H 12/16/21 15:02 Plt Count 111 K/mm3 (140-440) L 12/16/21 15:02 Lymph % (Auto) 11.2 % (13.4-35.0) L 12/16/21 15:02 [place] % (Auto) 14.6 % (0.0-7.3) H 12/16/21 15:02 Eos % (Auto) 3.6 % (0.0-4.3) 12/16/21 15:02 Baso % (Auto) 1.8 % (0.0-1.8) 12/16/21 15:02 Lymph # (Auto) 0.8 K/mm3 (1.2-5.4) L 12/16/21 15:02 [place] # (Auto) 1.0 K/mm3 (0.0-0.8) H 12/16/21 15:02 Eos # (Auto) 0.3 K/mm3 (0.0-0.4) 12/16/21 15:02 Baso # (Auto) 0.1 K/mm3 (0.0-0.1) 12/16/21 15:02 Add Manual Diff Complete 11/21/21 19:36 Total Counted 100 11/21/21 19:36 Seg Neutrophils % 68.8 % (40.0-70.0) 12/16/21 15:02 Seg Neuts % (Manual) 79.0 % (40.0-70.0) H 11/21/21 19:36 Lymphocytes % (Manual) 10.0 % (13.4-35.0) L 11/21/21 19:36 Monocytes % (Manual) 8.0 % (0.0-7.3) H 11/21/21 19:36 Basophils % (Manual) 3.0 % (0.0-1.8) H 11/21/21 19:36 Nucleated RBC % Not Reportable 11/21/21 19:36 Seg Neutrophils # 4.8 K/mm3 (1.8-7.7) 12/16/21 15:02 Seg Neutrophils # Man 5.3 K/mm3 (1.8-7.7) 11/21/21 19:36 Band Neutrophils # 0.0 K/mm3 11/21/21 19:36 Lymphocytes # (Manual) 0.7 K/mm3 (1.2-5.4) L 11/21/21 19:36 Abs React Lymphs (Man) 0.0 K/mm3 11/21/21 19:36 Monocytes # (Manual) 0.5 K/mm3 (0.0-0.8) 11/21/21 19:36 Eosinophils # (Manual) 0.0 K/mm3 (0.0-0.4) 11/21/21 19:36 Basophils # (Manual) 0.2 K/mm3 (0.0-0.1) H 11/21/21 19:36 Metamyelocytes # 0.0 K/mm3 11/21/21 19:36 Myelocytes # 0.0 K/mm3 11/21/21 19:36 Promyelocytes # 0.0 K/mm3 11/21/21 19:36 Blast Cells # 0.0 K/mm3 11/21/21 19:36 WBC Morphology Not Reportable 11/21/21 19:36 Hypersegmented Neuts Not Reportable 11/21/21 19:36 Hyposegmented Neuts Not Reportable 11/21/21 19:36 Hypogranular Neuts Not Reportable 11/21/21 19:36 Smudge Cells Not Reportable 11/21/21 19:36 Toxic Granulation Not Reportable 11/21/21 19:36 Toxic Vacuolation Not Reportable 11/21/21 19:36 Dohle Bodies Not Reportable 11/21/21 19:36 Pelger-Huet Anomaly Not Reportable 11/21/21 19:36 Luan Rods Not Reportable 11/21/21 19:36 Platelet Estimate Consistent w auto 11/21/21 19:36 Clumped Platelets Not Reportable 11/21/21 19:36 Plt Clumps, EDTA Not Reportable 11/21/21 19:36 Large Platelets Not Reportable 11/21/21 19:36 Giant Platelets Not Reportable 11/21/21 19:36 Platelet Satelliting Not Reportable 11/21/21 19:36 Plt Morphology Comment Not Reportable 11/21/21 19:36 RBC Morphology Normal 11/21/21 19:36 Dimorphic RBCs Not Reportable 11/21/21 19:36 Polychromasia Not Reportable 11/21/21 19:36 Hypochromasia Not Reportable 11/21/21 19:36 Poikilocytosis Not Reportable 11/21/21 19:36 Anisocytosis Not Reportable 11/21/21 19:36 Microcytosis Not Reportable 11/21/21 19:36 Macrocytosis Not Reportable 11/21/21 19:36 Spherocytes Not Reportable 11/21/21 19:36 Pappenheimer Bodies Not Reportable 11/21/21 19:36 Sickle Cells Not Reportable 11/21/21 19:36 Target Cells Not Reportable 11/21/21 19:36 Tear Drop Cells Not Reportable 11/21/21 19:36 Ovalocytes Not Reportable 11/21/21 19:36 Helmet Cells Not Reportable 11/21/21 19:36 [place] Bodies Not Reportable 11/21/21 19:36 [place] Rings Not Reportable 11/21/21 19:36 [place] Cells Not Reportable 11/21/21 19:36 Bite Cells Not Reportable 11/21/21 19:36 Crenated Cell Not Reportable 11/21/21 19:36 Elliptocytes Not Reportable 11/21/21 19:36 Acanthocytes (Spur) Not Reportable 11/21/21 19:36 Rouleaux Not Reportable 11/21/21 19:36 Hemoglobin C Crystals Not Reportable 11/21/21 19:36 Schistocytes Not Reportable 11/21/21 19:36 Malaria parasites Not Reportable 11/21/21 19:36 Kalia Bodies Not Reportable 11/21/21 19:36 Hem Pathologist Commnt No 11/21/21 19:36 D-Dimer 1279.46 ng/mlDDU (0-234) H 11/26/21 16:44 ABG pH 7.379 pH Units (7.350-7.450) 12/13/21 00:30 ABG pCO2 42.6 mm Hg 12/13/21 00:30 ABG pO2 125.3 mm Hg (80.0-90.0) H 12/13/21 00:30 ABG HCO3 24.6 mmol/L (20.0-26.0) 12/13/21 00:30 ABG O2 Saturation 98.4 % (95.0-99.0) 12/13/21 00:30 ABG O2 Content 14.3 (0.0-44) 12/13/21 00:30 ABG Base Excess -0.6 mmol/L (-2.0-3.0) 12/13/21 00:30 ABG Hemoglobin 10.4 gm/dl (14.0-18.0) L 12/13/21 00:30 ABG Carboxyhemoglobin 1.8 % (0.0-5.0) 12/13/21 00:30 ABG Methemoglobin 0.5 % (0.0-1.5) 12/13/21 00:30 Oxyhemoglobin 96.0 % (95.0-99.0) 12/13/21 00:30 FiO2 36 % 12/13/21 00:30 Sodium 145 mmol/L (137-145) 12/17/21 08:40 Potassium 4.7 mmol/L (3.6-5.0) 12/17/21 08:40 Chloride 108.1 mmol/L (98-107) H 12/17/21 08:40 Carbon Dioxide 22 mmol/L (22-30) 12/17/21 08:40 Anion Gap 20 mmol/L 12/17/21 08:40 BUN 21 mg/dL (9-20) H 12/17/21 08:40 Creatinine 1.1 mg/dL (0.8-1.3) 12/17/21 08:40 Estimated GFR > 60 ml/min 12/17/21 08:40 BUN/Creatinine Ratio 19 % 12/17/21 08:40 Glucose 249 mg/dL (75-100) H 12/17/21 08:40 POC Glucose 190 mg/dL (70-105) H 12/17/21 15:43 Hemoglobin A1c 7.9 % (4-6) H 12/16/21 15:02 Osmolality 316 Mosm/kg 11/27/21 Unknown Uric Acid 9.8 mg/dL (3.5-7.6) H 11/27/21 Unknown Calcium 8.7 mg/dL (8.4-10.2) 12/17/21 08:40 Phosphorus 1.90 mg/dL (2.5-4.5) L 12/03/21 04:00 Magnesium 2.30 mg/dL (1.7-2.3) 12/07/21 05:36 Total Bilirubin 0.40 mg/dL (0.1-1.2) 11/28/21 06:47 AST 22 units/L (5-40) 11/28/21 06:47 ALT 28 units/L (7-56) 11/28/21 06:47 Alkaline Phosphatase 197 units/L (35-129) H 11/28/21 06:47 Ammonia 12.0 umol/L (25-60) L 11/28/21 12:59 C-Reactive Protein 13.00 mg/dL (0.00-1.30) H 11/27/21 05:17 Total Protein 5.6 g/dL (6.3-8.2) L 11/28/21 06:47 Albumin 2.5 g/dL (3.9-5) L 11/28/21 06:47 Albumin/Globulin Ratio 0.8 % 11/28/21 06:47 Procalcitonin 3.10 ng/mL (<0.15) 11/26/21 08:21 TSH 4.800 mlU/mL (0.270-4.200) H 11/21/21 19:37 Urine Color Kimberli (Yellow) 11/27/21 Unknown Urine Turbidity Slightly-cloudy (Clear) 11/27/21 Unknown Urine pH 5.0 (5.0-7.0) 11/27/21 Unknown Ur Specific [place] 1.013 (1.003-1.030) 11/27/21 Unknown Urine Protein <15 mg/dl mg/dL (Negative) 11/27/21 Unknown Urine Glucose (UA) 50 mg/dL (Negative) 11/27/21 Unknown Urine Ketones Tr mg/dL (Negative) 11/27/21 Unknown Urine Blood Neg (Negative) 11/27/21 Unknown Urine Nitrite Neg (Negative) 11/27/21 Unknown Urine Bilirubin Neg (Negative) 11/27/21 Unknown Urine Urobilinogen < 2.0 mg/dL (<2.0) 11/27/21 Unknown Ur Leukocyte Esterase Neg (Negative) 11/27/21 Unknown Urine WBC (Auto) 13.0 /HPF (0.0-6.0) H 11/27/21 Unknown Urine RBC (Auto) 2.0 /HPF (0.0-6.0) 11/27/21 Unknown U Epithel Cells (Auto) 1.0 /HPF (0-13.0) 11/27/21 Unknown Urine Bacteria (Auto) 1+ /HPF (Negative) 11/27/21 Unknown Urine Mucus Few /HPF 11/27/21 Unknown Urine Yeast (Budding) 2+ /HPF 11/27/21 Unknown Urine Creatinine 80.9 mg/dL (0.1-20.0) H 11/27/21 Unknown Urine Sodium 36 mmol/L 11/27/21 Unknown Urine Total Protein 43 mg/dL (5-11.8) H 11/27/21 Unknown Coronavirus (PCR) Positive (Negative) A 12/17/21 08:00 Fritz/IV: Voiding Method Condom Catheter Active Medications - Current Medications Current Medications: Generic Name Dose Route Start Last Admin Trade Name Freq PRN Reason Stop Dose Admin Acetaminophen 650 mg 11/22/21 05:48 Acetaminophen 325 Mg Tab PO Q4H PRN Pain MILD(1-3)/Fever >100.5/BRODY Albuterol 2.5 mg 11/25/21 12:00 Albuterol 2.5 Mg/3 Ml Nebu IH Q4HRT PRN Shortness Of Breath Dextrose 0 ml 12/13/21 00:12 12/16/21 23:44 Dextrose 10% *Hypoglycemia IV 250 ml PRN PRN Administration Hypoglycemia Docusate Sodium 100 mg 12/13/21 22:00 12/17/21 09:15 Docusate Sodium 100 Mg/10 Ml Oral Liqd FEEDTUBE Not Given BID NANDINI Haloperidol Lactate 5 mg 12/07/21 15:34 12/08/21 10:42 Haloperidol Lactate 5 Mg/1 Ml Inj IM 5 mg Q6H PRN Administration Agitation Dextrose 1,000 mls @ 75 mls/hr 12/13/21 00:20 12/16/21 23:44 D10w IV 75 mls/hr DIRECT NANDINI Administration Ondansetron HCl 4 mg 11/22/21 05:48 12/03/21 21:38 Ondansetron 4 Mg/2 Ml Inj IV 4 mg Q8H PRN Administration Nausea And Vomiting Sodium Chloride 10 ml 11/22/21 10:00 12/17/21 09:15 Sodium Chloride 0.9% 10 Ml Flush Syringe IV 10 ml BID NANDINI Administration Sodium Chloride 10 ml 12/15/21 14:19 Sodium Chloride 0.9% 50 Ml Ivpb IV PRN PRN FLUSH Nutrition/Malnutrition Assess - Dietary Evaluation Nutrition/Malnutrition Findings: Nutrition Notes Start: 11/22/21 14:16 Freq: Status: Active Protocol: Document 12/16/21 09:48 NICKO (Rec: 12/16/21 10:05 NICKO [id number]) Nutrition Notes Initial or Follow up Reassessment Current Diagnosis Acute Kidney Injury,Coronary Artery Disease,Hypertension, Respiratory Failure Other Pertinent Diagnosis COVID-19, Pneumonia, UTI, Acute encephalopathy, Cardiomyopathy, HFrEF. Current Diet TF-Promote @ 57 ml/hr (since D 12/11). Labs/Tests 12/15: Na 147, Cl 111.3, BUN 22, Glu 214. Pertinent Medications 12/15: Nutritionally unremarkable. Height 5 ft 11 in Weight 68.6 kg [place] Body Weight (kg) 78.18 BMI 21.1 Weight change and time frame No body weight change reported . Weight Status Underweight Subjective/Other Information RD consult for routine F/U on TF tolerance. TF well tolerated according to RN notes. Pt pending SNF placement for discharge. Pt possibly getting PEG, after discussing it with spouse. Percent of energy/protein needs met: Prescribed TF-Promote @ 57 ml/ hr provides for energy/protein needs (1,378 Kcal/86 g) during LOS, 75% Kcal; 100% AA. Burn Absent Trauma Absent GI Symptoms None Food Allergy No Current % PO Other Minimum of two criteria No #3 Nutrition Diagnosis Inadequate oral intake Diagnosis Progress(for reassessment Continues documentation) Is patient on ventilator? No Is Patient Ambulatory and/or Out of Bed Yes REE-([facility]-ambulatory/OOB) [ [id number] [id number]] Calculation Used for Recommendations 70-80% of EEN. Additional Notes 15-20 Kcal/Kg ABW. Protein: 1.2-2 g/Kg; 83-138 g/ day. Fluids: 1 ml/Kcal, or as per MD. Nutrition Intervention Nutrition Support: Continue Promote @ 57 ml/hr. Flush 110 ml water Q 4 hr, or as per MD. Kcal 1,378 Protein (gm) 86 Carbohydrates (gm) 179 Fat (gm) 36 Fluid (mL) 1,156 Fiber (gm) 0 % RDI: 75% Kcal; 100% AA. Goal #1 Provide at least 75% of energy /protein needs through Enteral Feeding during LOS. Follow-Up By: 12/23/21 Additional Comments Continue monitoring TF tolerance and BM.
--- NOTE | 2021-12-17 19:21 | XRay Report ---
ABDOMEN 1 VIEW(S) INDICATION / CLINICAL INFORMATION: tube placement. COMPARISON: 12/15/2021. FINDINGS: TUBES / LINES: Feeding tube tip at the stomach. BOWEL GAS PATTERN: Bowel gas greatest at the right lower quadrant without evidence of obstruction or significant distention. ADDITIONAL FINDINGS: No significant additional findings. Signer Name: Chauncey Morales MD Signed: 12/17/2021 7:16 PM Workstation Name: [id number]
--- NOTE | 2021-12-17 20:10 | Consultation ---
History of Present Illness Consult date: 12/17/21 - History of present illness History of present illness: 81 yo male with referral for surgical gastrostomy tube. Pt with no past surgical history documented on chart but with a midline incision from sternum to pubis on exam. Pt confused unable to give history. He has multiple med issues including AF, CAD, hx of prostate ca, copd, dm. htn. Past History Past Medical History: atrial fib, CAD, cancer, COPD, diabetes, hypertension Past Surgical History: No surgical history Social history: no significant social history Family history: hypertension Medications and Allergies Allergies Allergy/AdvReac Type Severity Reaction Status Date / Time No Known Allergies Allergy Verified 11/22/21 05:55 Home Medications Medication Instructions Recorded Confirmed Last Taken Type Furosemide [Lasix TAB] 80 mg PO TID 11/24/21 11/24/21 Unknown History Gabapentin [Neurontin] 300 mg PO BID 11/24/21 11/27/21 11/19/21 09:12 History 300 mg Sacubitril/Valsartan [Entresto 1 tab PO BID 11/24/21 11/27/21 11/19/21 09:12 History 49-51 mg] 1 tab Spironolactone [Aldactone] 25 mg PO QDAY 11/24/21 11/27/21 11/19/21 09:12 History 25 mg Tamsulosin [Flomax] 0.4 mg PO QDAY 11/24/21 11/27/21 11/18/21 22:02 History 0.4 mg carvediloL [Coreg] 6.25 mg PO BID 11/24/21 11/27/21 11/19/21 09:12 History 6.25mg AtorvaSTATin [Lipitor] 40 mg PO QHS 11/27/21 11/27/21 11/19/21 09:12 History 40 mg Insulin Glargine,Hum.rec.anlog 12 unit SQ QHS 11/27/21 11/27/21 11/18/21 22:02 History [Lantus Solostar] 12 units Insulin Lispro [Admelog] 1 - 12 unit SQ TIDAC 11/27/21 11/27/21 11/19/21 08:32 History 6 units Insulin Lispro [Admelog] 4 unit SQ TID 11/27/21 11/27/21 11/19/21 08:33 History 4 units oxyCODONE /ACETAMINOPHEN [Percocet 1 tab PO Q6HR PRN 11/27/21 11/27/21 11/19/21 03:57 History 5/325] 1 tab Active Meds: Active Medications Acetaminophen (Acetaminophen 325 Mg Tab) 650 mg PO Q4H PRN PRN Reason: Pain MILD(1-3)/Fever >100.5/BRODY Albuterol (Albuterol 2.5 Mg/3 Ml Nebu) 2.5 mg IH Q4HRT PRN PRN Reason: Shortness Of Breath Dextrose (Dextrose 10% *Hypoglycemia) 0 ml IV PRN PRN PRN Reason: Hypoglycemia Last Admin: 12/16/21 23:44 Dose: 250 ml Docusate Sodium (Docusate Sodium 100 Mg/10 Ml Oral Liqd) 100 mg FEEDTUBE BID [facility] Last Admin: 12/17/21 09:15 Dose: Not Given Haloperidol Lactate (Haloperidol Lactate 5 Mg/1 Ml Inj) 5 mg IM Q6H PRN PRN Reason: Agitation Last Admin: 12/08/21 10:42 Dose: 5 mg Dextrose (D10w) 1,000 mls @ 75 mls/hr IV DIRECT [facility] Last Admin: 12/16/21 23:44 Dose: 75 mls/hr Ondansetron HCl (Ondansetron 4 Mg/2 Ml Inj) 4 mg IV Q8H PRN PRN Reason: Nausea And Vomiting Last Admin: 12/03/21 21:38 Dose: 4 mg Sodium Chloride (Sodium Chloride 0.9% 10 Ml Flush Syringe) 10 ml IV BID [facility] Last Admin: 12/17/21 09:15 Dose: 10 ml Sodium Chloride (Sodium Chloride 0.9% 50 Ml Ivpb) 10 ml IV PRN PRN PRN Reason: FLUSH Exam Vital Signs Temp Pulse Resp BP Pulse Ox 98.5 F 61 18 124/73 94 11/21/21 19:28 11/21/21 19:28 11/21/21 19:28 11/21/21 19:28 11/21/21 19:28 - General physical appearance Positive: well nourished, moderate distress - Eyes Positive: PERRL - Neck Positive: no masses, no bruits, trachea midline - Respiratory Positive: normal expansion - Cardiovascular Rhythm: regular - Extremities Extremities: no ischemia, No edema - Abdomen Abdomen: Present: soft, other (midline incison from xyphoid to pubis). Absent: tender Results - Labs 12/16/21 15:02 12/17/21 08:40 Abnormal lab results 12/16/21 12/17/21 12/17/21 Range/Units 23:34 00:41 02:17 Chloride (98-107) mmol/L BUN (9-20) mg/dL Glucose (75-100) mg/dL POC Glucose 48 L 46 L 142 H (70-105) mg/dL Coronavirus (PCR) (Negative) 12/17/21 12/17/21 12/17/21 Range/Units 08:00 08:40 11:17 Chloride 108.1 H (98-107) mmol/L BUN 21 H (9-20) mg/dL Glucose 249 H (75-100) mg/dL POC Glucose 173 H (70-105) mg/dL Coronavirus (PCR) Positive A (Negative) 12/17/21 Range/Units 15:43 Chloride (98-107) mmol/L BUN (9-20) mg/dL Glucose (75-100) mg/dL POC Glucose 190 H (70-105) mg/dL Coronavirus (PCR) (Negative) Diabetes panel 12/17/21 Range/Units 08:40 Sodium 145 (137-145) mmol/L Potassium 4.7 (3.6-5.0) mmol/L Chloride 108.1 H (98-107) mmol/L Carbon Dioxide 22 (22-30) mmol/L BUN 21 H (9-20) mg/dL Creatinine 1.1 (0.8-1.3) mg/dL Glucose 249 H (75-100) mg/dL Calcium 8.7 (8.4-10.2) mg/dL Calcium panel 12/17/21 Range/Units 08:40 Calcium 8.7 (8.4-10.2) mg/dL Pituitary panel 12/17/21 Range/Units 08:40 Sodium 145 (137-145) mmol/L Potassium 4.7 (3.6-5.0) mmol/L Chloride 108.1 H (98-107) mmol/L Carbon Dioxide 22 (22-30) mmol/L BUN 21 H (9-20) mg/dL Creatinine 1.1 (0.8-1.3) mg/dL Glucose 249 H (75-100) mg/dL Calcium 8.7 (8.4-10.2) mg/dL Adrenal panel 12/17/21 Range/Units 08:40 Sodium 145 (137-145) mmol/L Potassium 4.7 (3.6-5.0) mmol/L Chloride 108.1 H (98-107) mmol/L Carbon Dioxide 22 (22-30) mmol/L BUN 21 H (9-20) mg/dL Creatinine 1.1 (0.8-1.3) mg/dL Glucose 249 H (75-100) mg/dL Calcium 8.7 (8.4-10.2) mg/dL Assessment and Plan pt referred for g tube. Dr. Hernadez unable to do peg. Will check CT of abdo and pelvis. Consider request to IR for placemnt of peg ei CT or US guidance.
[2021-12-18] MEDS: HALOPERIDOL LACTATE 5 MG/1 ML INJ IM PRN (08:27)
--- NOTE | 2021-12-18 09:24 | Cat Scan Report ---
CT ABDOMEN AND PELVIS WITHOUT CONTRAST HISTORY: pt with prior abdosurgery, unable to do PEG tube c. COMPARISON: CT abdomen/pelvis from 11/22/2021 TECHNIQUE: CT images of the abdomen and pelvis were obtained without administration of intravenous co ntrast. All CT scans at this location are performed using CT dose reduction for ALARA by means of au tomated exposure control. FINDINGS: Lungs/bones: There is persistent elevation of the left hemidiaphragm and majority left lung base is excluded. Moderate patchy right basilar airspace disease is present. There is a trace pleural effusio n as well. Degenerative changes are present in the spine and pelvis with nothing acute. Right femoral neck fixation noted with no complication. Abdomen/pelvis: The liver, gallbladder, spleen, pancreas, adrenals, and left kidney appear unremarka ble. Intermediate attenuation cyst in the midpole of the right kidney again noted. The Dobbhoff tube is positioned in the proximal stomach and the full extent of the stomach is visuali zed on this exam (has been excluded from view). The proximal GI tract is otherwise unremarkable. Moderate colonic stool burden again seen distally without evidence of impaction. No acute bowel abnor mality identified. No free fluid. The urinary bladder is unremarkable. Prostate is enlarged was again and indents the bladder base. IMPRESSION: 1. No acute abnormality in the abdomen. 2. The Dobbhoff tube is in the proximal to mid stomach and should be advanced at least 10 centimeters into the duodenum. 3. Incidental findings as above. Signer Name: Tommie Bermeo MD Signed: 12/18/2021 9:19 AM Workstation Name: [id number]
[2021-12-18] MEDS: DOCUSATE SODIUM 100 MG/10 ML ORAL LIQD FEEDTUBE SCH (09:53)
[2021-12-18 10:09] LABS: BUN/Creatinine Ratio 15; Blood Urea Nitrogen 15 mg/dL (9-20); Calcium 7.9 mg/dL (8.4-10.2); Hemolysis Index 231
--- NOTE | 2021-12-18 11:17 | Event Note ---
Date: 12/18/21 CT scan of the abdomen was reviewed. 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 The stomach is retrocardiac with the NG tube traversing in between aorta and heart. This is not amenable to percutaneous placement of gastrostomy tube and likely not amenable to surgical gastrostomy tube placement. The patient may ultimately require surgical jejunostomy tube placement given his significantly distorted gastric anatomy.
[2021-12-18] MEDS: DEXTROSE 10% IN WATER 1,000 ML IV SCH (11:27)
--- NOTE | 2021-12-18 15:56 | XRay Report ---
XR abdomen 1V ap INDICATION: tube placement COMPARISON: 12/17/2021. FINDINGS/IMPRESSION: Left hemidiaphragm is elevated. The feeding tube terminates in the proximal stomach, similar to prior . Signer Name: Yandel Burks MD Signed: 12/18/2021 3:52 PM Workstation Name: [id number]
--- NOTE | 2021-12-18 18:45 | Progress Note ---
Assessment and Plan Assessment and plan: 81-year-old man past medical history hypertension, diabetes presenting the hospital due to confusion. He had been discharged from [facility] 2 days prior to admission and confusion had not improved since then. Family was unaware why he was in the hospital previously. Severe COVID-19 pneumonia: Patient presented with a week of symptoms, chest x- ray with diffuse bilateral infiltrates. Inflammatory markers elevated with Acute hypoxemic respiratory failure: #Acute metabolic encephalopathy -CT head negative for acute findings; MRI unable to be performed secondary to agitation -Etiology likely multifactorial including underlying dementia, Covid encephalopathy, dehydration and hyponatremia -Delirium precautions -Mental status much improved on 12/18, alert and verbal but still confused -Patient remains restless requiring wrist restraints to prevent him from pulling IV lines and NG tube. -Avoid sedation #Poor oral intake/dehydration -patient noted to have poor oral intake while sleepy -ST eval ordered; recommended n.p.o. and tube feeds -dobhoff placed for TF in meantime -GI attempted but unable to place PEG tube 12/17 -IR consulted but CT showed retrocardiac stomach, not possible to place PEG tube, recommends surgery to perform J-tube placement Patient much alert on 12/18, reportedly passed bedside swallow evaluation by RN, trial with pured diet. Continue aspiration precautions #Acute hypoxic respiratory failure-improving #COVID-19 pneumonia-stable -currently on 2-4 L NC, stable -Was not candidate for remdesivir due to initial ROSANA -s/p steroids x10 days -continue lovenox #Hypoglycemia #hx of Insulin-dependent type 2 diabetes -patient with glucose as low as 18. D10W infusion started -On tube feeds -will discontinue SSI -Goal glucose 140-180 while inpatient #CAD #Chronic heart failure with reduced ejection fraction -TTE revealing EF of 35 to 40% #Bradycardia-improved -Cardiology following, assistance appreciated -Home beta-tee held #Hypertension -Blood pressure controlled, no meds while inpatient #ROSANA-resolved -Secondary to vasomotor nephropathy #UTI -Status post antibiotics -Urine culture shows 10-100 K Natalia species #Hypokalemia -We will continue to replete and monitor #Hypernatremia-resolving On D10W infusion, nephrology following #Severe debility -Evaluated by PT and OT, recommendation for subacute rehab at discharge #Discharge planning -PEG tube to be placed, followed by discharge to SNF versus home hospice accepted to take patient home with home hospice. Discussed with the nursing staff, and manager case History Interval history: Patient is more alert and more verbal today but still confused but much. CT chest today showed stomach is retrocardiac and IR felt PEG tube placement would be difficult due to change anatomy and recommends GT placement by surgery. Nurse performed bedside swallow screen, patient apparently tolerated and started on pured diet. Patient pulled off nasal cannula and has mild respiratory distr ess with talking. Hospitalist Physical - Constitutional Vitals: Temp Pulse Resp BP Pulse Ox 97.5 F L 69 18 109/60 95 12/18/21 05:03 12/17/21 13:26 12/18/21 05:03 12/18/21 05:03 12/18/21 10:00 General appearance: Present: no acute distress, other (Very alert today, verbalizing well but very confused still) - EENT Eyes: Present: PERRL, irregular pupil ENT: hearing intact - Neck Neck: Present: supple - Respiratory Respiratory effort: normal Respiratory: bilateral: diminished - Cardiovascular Rhythm: regular - Extremities Extremities: No edema - Abdominal General gastrointestinal: soft, non-tender, non-distended, normal bowel sounds - Integumentary Integumentary: Absent: rash - Psychiatric Psychiatric: other (Confused and restless) - Neurologic Neurologic: moves all extremities, other (Mental status much improved, very alert, poor verbal but confused.) Results - Labs CBC & Chem 7: 12/16/21 15:02 12/18/21 09:21 Labs: Laboratory Last Values WBC 7.0 K/mm3 (4.5-11.0) 12/16/21 15:02 RBC 2.91 M/mm3 (3.65-5.03) L 12/16/21 15:02 Hgb 8.8 gm/dl (11.8-15.2) L 12/16/21 15:02 Hct 28.9 % (35.5-45.6) L 12/16/21 15:02 MCV 99 fl (84-94) H 12/16/21 15:02 MCH 30 pg (28-32) 12/16/21 15:02 MCHC 31 % (32-34) L 12/16/21 15:02 RDW 17.2 % (13.2-15.2) H 12/16/21 15:02 Plt Count 111 K/mm3 (140-440) L 12/16/21 15:02 Lymph % (Auto) 11.2 % (13.4-35.0) L 12/16/21 15:02 [place] % (Auto) 14.6 % (0.0-7.3) H 12/16/21 15:02 Eos % (Auto) 3.6 % (0.0-4.3) 12/16/21 15:02 Baso % (Auto) 1.8 % (0.0-1.8) 12/16/21 15:02 Lymph # (Auto) 0.8 K/mm3 (1.2-5.4) L 12/16/21 15:02 [place] # (Auto) 1.0 K/mm3 (0.0-0.8) H 12/16/21 15:02 Eos # (Auto) 0.3 K/mm3 (0.0-0.4) 12/16/21 15:02 Baso # (Auto) 0.1 K/mm3 (0.0-0.1) 12/16/21 15:02 Add Manual Diff Complete 11/21/21 19:36 Total Counted 100 11/21/21 19:36 Seg Neutrophils % 68.8 % (40.0-70.0) 12/16/21 15:02 Seg Neuts % (Manual) 79.0 % (40.0-70.0) H 11/21/21 19:36 Lymphocytes % (Manual) 10.0 % (13.4-35.0) L 11/21/21 19:36 Monocytes % (Manual) 8.0 % (0.0-7.3) H 11/21/21 19:36 Basophils % (Manual) 3.0 % (0.0-1.8) H 11/21/21 19:36 Nucleated RBC % Not Reportable 11/21/21 19:36 Seg Neutrophils # 4.8 K/mm3 (1.8-7.7) 12/16/21 15:02 Seg Neutrophils # Man 5.3 K/mm3 (1.8-7.7) 11/21/21 19:36 Band Neutrophils # 0.0 K/mm3 11/21/21 19:36 Lymphocytes # (Manual) 0.7 K/mm3 (1.2-5.4) L 11/21/21 19:36 Abs React Lymphs (Man) 0.0 K/mm3 11/21/21 19:36 Monocytes # (Manual) 0.5 K/mm3 (0.0-0.8) 11/21/21 19:36 Eosinophils # (Manual) 0.0 K/mm3 (0.0-0.4) 11/21/21 19:36 Basophils # (Manual) 0.2 K/mm3 (0.0-0.1) H 11/21/21 19:36 Metamyelocytes # 0.0 K/mm3 11/21/21 19:36 Myelocytes # 0.0 K/mm3 11/21/21 19:36 Promyelocytes # 0.0 K/mm3 11/21/21 19:36 Blast Cells # 0.0 K/mm3 11/21/21 19:36 WBC Morphology Not Reportable 11/21/21 19:36 Hypersegmented Neuts Not Reportable 11/21/21 19:36 Hyposegmented Neuts Not Reportable 11/21/21 19:36 Hypogranular Neuts Not Reportable 11/21/21 19:36 Smudge Cells Not Reportable 11/21/21 19:36 Toxic Granulation Not Reportable 11/21/21 19:36 Toxic Vacuolation Not Reportable 11/21/21 19:36 Dohle Bodies Not Reportable 11/21/21 19:36 Pelger-Huet Anomaly Not Reportable 11/21/21 19:36 Luan Rods Not Reportable 11/21/21 19:36 Platelet Estimate Consistent w auto 11/21/21 19:36 Clumped Platelets Not Reportable 11/21/21 19:36 Plt Clumps, EDTA Not Reportable 11/21/21 19:36 Large Platelets Not Reportable 11/21/21 19:36 Giant Platelets Not Reportable 11/21/21 19:36 Platelet Satelliting Not Reportable 11/21/21 19:36 Plt Morphology Comment Not Reportable 11/21/21 19:36 RBC Morphology Normal 11/21/21 19:36 Dimorphic RBCs Not Reportable 11/21/21 19:36 Polychromasia Not Reportable 11/21/21 19:36 Hypochromasia Not Reportable 11/21/21 19:36 Poikilocytosis Not Reportable 11/21/21 19:36 Anisocytosis Not Reportable 11/21/21 19:36 Microcytosis Not Reportable 11/21/21 19:36 Macrocytosis Not Reportable 11/21/21 19:36 Spherocytes Not Reportable 11/21/21 19:36 Pappenheimer Bodies Not Reportable 11/21/21 19:36 Sickle Cells Not Reportable 11/21/21 19:36 Target Cells Not Reportable 11/21/21 19:36 Tear Drop Cells Not Reportable 11/21/21 19:36 Ovalocytes Not Reportable 11/21/21 19:36 Helmet Cells Not Reportable 11/21/21 19:36 [place] Bodies Not Reportable 11/21/21 19:36 [place] Rings Not Reportable 11/21/21 19:36 Star Cells Not Reportable 11/21/21 19:36 Bite Cells Not Reportable 11/21/21 19:36 Crenated Cell Not Reportable 11/21/21 19:36 Elliptocytes Not Reportable 11/21/21 19:36 Acanthocytes (Spur) Not Reportable 11/21/21 19:36 Rouleaux Not Reportable 11/21/21 19:36 Hemoglobin C Crystals Not Reportable 11/21/21 19:36 Schistocytes Not Reportable 11/21/21 19:36 Malaria parasites Not Reportable 11/21/21 19:36 Kalia Bodies Not Reportable 11/21/21 19:36 Hem Pathologist Commnt No 11/21/21 19:36 D-Dimer 1279.46 ng/mlDDU (0-234) H 11/26/21 16:44 ABG pH 7.379 pH Units (7.350-7.450) 12/13/21 00:30 ABG pCO2 42.6 mm Hg 12/13/21 00:30 ABG pO2 125.3 mm Hg (80.0-90.0) H 12/13/21 00:30 ABG HCO3 24.6 mmol/L (20.0-26.0) 12/13/21 00:30 ABG O2 Saturation 98.4 % (95.0-99.0) 12/13/21 00:30 ABG O2 Content 14.3 (0.0-44) 12/13/21 00:30 ABG Base Excess -0.6 mmol/L (-2.0-3.0) 12/13/21 00:30 ABG Hemoglobin 10.4 gm/dl (14.0-18.0) L 12/13/21 00:30 ABG Carboxyhemoglobin 1.8 % (0.0-5.0) 12/13/21 00:30 ABG Methemoglobin 0.5 % (0.0-1.5) 12/13/21 00:30 Oxyhemoglobin 96.0 % (95.0-99.0) 12/13/21 00:30 FiO2 36 % 12/13/21 00:30 Sodium 143 mmol/L (137-145) 12/18/21 09:21 Potassium 5.2 mmol/L (3.6-5.0) H 12/18/21 09:21 Chloride 109.4 mmol/L (98-107) H 12/18/21 09:21 Carbon Dioxide 24 mmol/L (22-30) 12/18/21 09:21 Anion Gap 15 mmol/L 12/18/21 09:21 BUN 15 mg/dL (9-20) 12/18/21 09:21 Creatinine 1.0 mg/dL (0.8-1.3) 12/18/21 09:21 Estimated GFR > 60 ml/min 12/18/21 09:21 BUN/Creatinine Ratio 15 % 12/18/21 09:21 Glucose 196 mg/dL (75-100) H 12/18/21 09:21 POC Glucose 222 mg/dL (70-105) H 12/18/21 17:22 Hemoglobin A1c 7.9 % (4-6) H 12/16/21 15:02 Osmolality 316 Mosm/kg 11/27/21 Unknown Uric Acid 9.8 mg/dL (3.5-7.6) H 11/27/21 Unknown Calcium 7.9 mg/dL (8.4-10.2) L 12/18/21 09:21 Phosphorus 1.90 mg/dL (2.5-4.5) L 12/03/21 04:00 Magnesium 2.30 mg/dL (1.7-2.3) 12/07/21 05:36 Total Bilirubin 0.40 mg/dL (0.1-1.2) 11/28/21 06:47 AST 22 units/L (5-40) 11/28/21 06:47 ALT 28 units/L (7-56) 11/28/21 06:47 Alkaline Phosphatase 197 units/L (35-129) H 11/28/21 06:47 Ammonia 12.0 umol/L (25-60) L 11/28/21 12:59 C-Reactive Protein 13.00 mg/dL (0.00-1.30) H 11/27/21 05:17 Total Protein 5.6 g/dL (6.3-8.2) L 11/28/21 06:47 Albumin 2.5 g/dL (3.9-5) L 11/28/21 06:47 Albumin/Globulin Ratio 0.8 % 11/28/21 06:47 Procalcitonin 3.10 ng/mL (<0.15) 11/26/21 08:21 TSH 4.800 mlU/mL (0.270-4.200) H 11/21/21 19:37 Urine Color [place] (Yellow) 11/27/21 Unknown Urine Turbidity Slightly-cloudy (Clear) 11/27/21 Unknown Urine pH 5.0 (5.0-7.0) 11/27/21 Unknown Ur Specific [place] 1.013 (1.003-1.030) 11/27/21 Unknown Urine Protein <15 mg/dl mg/dL (Negative) 11/27/21 Unknown Urine Glucose (UA) 50 mg/dL (Negative) 11/27/21 Unknown Urine Ketones Tr mg/dL (Negative) 11/27/21 Unknown Urine Blood Neg (Negative) 11/27/21 Unknown Urine Nitrite Neg (Negative) 11/27/21 Unknown Urine Bilirubin Neg (Negative) 11/27/21 Unknown Urine Urobilinogen < 2.0 mg/dL (<2.0) 11/27/21 Unknown Ur Leukocyte Esterase Neg (Negative) 11/27/21 Unknown Urine WBC (Auto) 13.0 /HPF (0.0-6.0) H 11/27/21 Unknown Urine RBC (Auto) 2.0 /HPF (0.0-6.0) 11/27/21 Unknown U Epithel Cells (Auto) 1.0 /HPF (0-13.0) 11/27/21 Unknown Urine Bacteria (Auto) 1+ /HPF (Negative) 11/27/21 Unknown Urine Mucus Few /HPF 11/27/21 Unknown Urine Yeast (Budding) 2+ /HPF 11/27/21 Unknown Urine Creatinine 80.9 mg/dL (0.1-20.0) H 11/27/21 Unknown Urine Sodium 36 mmol/L 11/27/21 Unknown Urine Total Protein 43 mg/dL (5-11.8) H 11/27/21 Unknown Coronavirus (PCR) Positive (Negative) A 12/17/21 08:00 Fritz/IV: Voiding Method Indwelling Catheter Active Medications - Current Medications Current Medications: Generic Name Dose Route Start Last Admin Trade Name Freq PRN Reason Stop Dose Admin Acetaminophen 650 mg 11/22/21 05:48 Acetaminophen 325 Mg Tab PO Q4H PRN Pain MILD(1-3)/Fever >100.5/BRODY Albuterol 2.5 mg 11/25/21 12:00 Albuterol 2.5 Mg/3 Ml Nebu IH Q4HRT PRN Shortness Of Breath Dextrose 0 ml 12/13/21 00:12 12/16/21 23:44 Dextrose 10% *Hypoglycemia IV 250 ml PRN PRN Administration Hypoglycemia Docusate Sodium 100 mg 12/13/21 22:00 12/18/21 09:53 Docusate Sodium 100 Mg/10 Ml Oral Liqd FEEDTUBE Not Given BID NANDINI Haloperidol Lactate 5 mg 12/07/21 15:34 12/18/21 08:27 Haloperidol Lactate 5 Mg/1 Ml Inj IM 5 mg Q6H PRN Administration Agitation Dextrose 1,000 mls @ 75 mls/hr 12/13/21 00:20 12/18/21 11:27 D10w IV 75 mls/hr DIRECT NANDINI Administration Ondansetron HCl 4 mg 11/22/21 05:48 12/03/21 21:38 Ondansetron 4 Mg/2 Ml Inj IV 4 mg Q8H PRN Administration Nausea And Vomiting Sodium Chloride 10 ml 11/22/21 10:00 12/18/21 11:26 Sodium Chloride 0.9% 10 Ml Flush Syringe IV 10 ml BID NANDINI Administration Sodium Chloride 10 ml 12/15/21 14:19 Sodium Chloride 0.9% 50 Ml Ivpb IV PRN PRN FLUSH Nutrition/Malnutrition Assess - Dietary Evaluation Nutrition/Malnutrition Findings: Nutrition Notes Start: 11/22/21 14:16 Freq: Status: Active Protocol: Document 12/16/21 09:48 NICKO (Rec: 12/16/21 10:05 NICKO [id number]) Nutrition Notes Initial or Follow up Reassessment Current Diagnosis Acute Kidney Injury,Coronary Artery Disease,Hypertension, Respiratory Failure Other Pertinent Diagnosis COVID-19, Pneumonia, UTI, Acute encephalopathy, Cardiomyopathy, HFrEF. Current Diet TF-Promote @ 57 ml/hr (since D 12/11). Labs/Tests 12/15: Na 147, Cl 111.3, BUN 22, Glu 214. Pertinent Medications 12/15: Nutritionally unremarkable. Height 5 ft 11 in Weight 68.6 kg [place] Body Weight (kg) 78.18 BMI 21.1 Weight change and time frame No body weight change reported . Weight Status Underweight Subjective/Other Information RD consult for routine F/U on TF tolerance. TF well tolerated according to RN notes. Pt pending SNF placement for discharge. Pt possibly getting PEG, after discussing it with spouse. Percent of energy/protein needs met: Prescribed TF-Promote @ 57 ml/ hr provides for energy/protein needs (1,378 Kcal/86 g) during LOS, 75% Kcal; 100% AA. Burn Absent Trauma Absent GI Symptoms None Food Allergy No Current % PO Other Minimum of two criteria No #3 Nutrition Diagnosis Inadequate oral intake Diagnosis Progress(for reassessment Continues documentation) Is patient on ventilator? No Is Patient Ambulatory and/or Out of Bed Yes REE-([facility]-ambulatory/OOB) [ 1837.069 [id number]] Calculation Used for Recommendations 70-80% of EEN. Additional Notes 15-20 Kcal/Kg ABW. Protein: 1.2-2 g/Kg; 83-138 g/ day. Fluids: 1 ml/Kcal, or as per MD. Nutrition Intervention Nutrition Support: Continue Promote @ 57 ml/hr. Flush 110 ml water Q 4 hr, or as per MD. Kcal 1,378 Protein (gm) 86 Carbohydrates (gm) 179 Fat (gm) 36 Fluid (mL) 1,156 Fiber (gm) 0 % RDI: 75% Kcal; 100% AA. Goal #1 Provide at least 75% of energy /protein needs through Enteral Feeding during LOS. Follow-Up By: 12/23/21 Additional Comments Continue monitoring TF tolerance and BM.
[2021-12-19] MEDS: DOCUSATE SODIUM 100 MG/10 ML ORAL LIQD FEEDTUBE SCH ×3 (02:23→23:49)
[2021-12-19] MEDS: HALOPERIDOL LACTATE 5 MG/1 ML INJ IM PRN ×2 (02:23→17:25)
[2021-12-19] MEDS: DEXTROSE 10% IN WATER 1,000 ML IV SCH (02:33)
[2021-12-19 08:00] LABS: Basophils # (Auto) 0.1 K/mm3 (0.0-0.1); Basophils % (Auto) 0.5 % (0.0-1.8); Hematocrit 28.1 % (35.5-45.6); Hemoglobin 8.5 gm/dl (11.8-15.2); Lymphocytes # (Auto) 0.5 K/mm3 (1.2-5.4); Lymphocytes % (Auto) 4.7 % (13.4-35.0); Mean Corpuscular HGB Conc 30 % (32-34); Mean Corpuscular Volume 95 fl (84-94); Monocytes # (Auto) 0.9 K/mm3 (0.0-0.8); Monocytes % (Auto) 7.6 % (0.0-7.3); Platelet Count 159 K/mm3 (140-440); Red Blood Count 2.95 M/mm3 (3.65-5.03); Red Cell Distribution Width 16.9 % (13.2-15.2)
[2021-12-19 08:22] LABS: Alanine Aminotransferase 14 units/L (7-56); Albumin 2.8 g/dL (3.9-5); BUN/Creatinine Ratio 15; Blood Urea Nitrogen 19 mg/dL (9-20); Calcium 8.5 mg/dL (8.4-10.2); Hemolysis Index 19
--- NOTE | 2021-12-19 11:22 | Progress Note ---
Subjective - Reason for Consult Consult date: 12/19/21 Reason for consult: irritable - Chief Complaint Chief complaint: Patient seen resting in bed. He is confused. He is a poor historian. he tells me that he was admitted into the hospital for a "bad back and bad kidneys." He denies SI/HI or hallucinations of any kind. REVIEW OF SYSTEMS MENTAL STATUS EXAMINATION Assessment (1)Delirium Current Visit: Yes Status: Acute Treatment plan Continue previous prescribed meds Risks, benefits and alternatives of medications discussed with the patient, questions answered and consent obtained from patient. PSYCHOTHERAPY: Supportive psychotherapy provided MEDICAL: Per primary team DELIRIUM PRECAUTIONS: Please re-orient patient frequently, keep lights on during the day, and minimize benzodiazepines and opiates as these medications could worsen patient's confusion. STAFF ANTISUBMARINE OFFICER: Per medical team DISPOSITION: Do not Recommend acute inpatient psychiatric hospitalization. Will follow for medication management. Thank you for the consult. Please contact with any questions and/or concerns. Case staffed with Dr. Sanchez Medications and Allergies Mental Status Exam - Vital signs Last Vital Signs Temp 98.0 F 12/19/21 05:00 Pulse 54 L 12/18/21 21:33 Resp 18 12/19/21 05:00 BP 111/62 12/19/21 05:00 Pulse Ox 90 12/18/21 22:00
--- NOTE | 2021-12-19 18:23 | Progress Note ---
Assessment and Plan Assessment and plan: 81-year-old man past medical history hypertension, diabetes presenting the hospital due to confusion. He had been discharged from [facility] 2 days prior to admission and confusion had not improved since then. Family was unaware why he was in the hospital previously. Severe COVID-19 pneumonia: Patient presented with a week of symptoms, chest x- ray with diffuse bilateral infiltrates. Inflammatory markers elevated with Acute hypoxemic respiratory failure: #Acute metabolic encephalopathy -CT head negative for acute findings; MRI unable to be performed secondary to agitation -Etiology likely multifactorial including underlying dementia, Covid encephalopathy, dehydration and hyponatremia -Delirium precautions -Mental status much improved on 12/18, alert and verbal but still confused -Patient remains restless requiring wrist restraints to prevent him from pulling IV lines and NG tube. -On Haldol, behavioral health consulted. #Poor oral intake/dehydration -patient noted to have poor oral intake while sleepy -ST eval ordered; recommended n.p.o. and tube feeds -dobhoff placed for TF in meantime -GI attempted but unable to place PEG tube 12/17 -IR consulted but CT showed retrocardiac stomach, not possible to place PEG tube, recommends surgery to perform J-tube placement Patient much alert on 12/18, reportedly passed bedside swallow evaluation by RN, trial with pured diet. - ST reevaluated and recommended trial with pured diet on 12/19 Continue aspiration precautions #Acute hypoxic respiratory failure-improving #COVID-19 pneumonia-stable -currently on 2-4 L NC, stable -Was not candidate for remdesivir due to initial ROSANA -s/p steroids x10 days -continue lovenox #Hypoglycemia #hx of Insulin-dependent type 2 diabetes -patient with glucose as low as 18. D10W infusion started -On tube feeds -will discontinue SSI -Goal glucose 140-180 while inpatient #CAD #Chronic heart failure with reduced ejection fraction -TTE revealing EF of 35 to 40% #Bradycardia-improved -Cardiology following, assistance appreciated -Home beta-tee held #Hypertension -Blood pressure controlled, no meds while inpatient #ROSANA-resolved -Secondary to vasomotor nephropathy #UTI -Status post antibiotics -Urine culture shows 10-100 K Natalia species #Hypokalemia -We will continue to replete and monitor #Hypernatremia-resolving On D10W infusion, nephrology following #Severe debility -Evaluated by PT and OT, recommendation for subacute rehab at discharge #Discharge planning -PEG tube could not be placed with GI and IR. IR recommends J-tube placement by surgery. ST reevaluated and recommended trial with pured diet on 12/19 . accepted to take patient home with home hospice. Discussed with the nursing staff, and case management manager History Interval history: Patient is more alert and more verbal today but still confused but much. CT chest today showed stomach is retrocardiac and IR felt PEG tube placement would be difficult due to change anatomy and recommends GT placement by surgery. Nurse performed bedside swallow screen, patient apparently tolerated , ST reevaluated and recommended trial with pured diet on 12/19. Patient pulled off nasal cannula and has mild respiratory distress with talking. Wrist restraints in place. Behavioral health consult consulted for agitation and delirium. On Haldol. Nurse reports that patient's intake by mouth is poor. Hospitalist Physical - Constitutional Vitals: Temp Pulse Resp BP Pulse Ox 98.6 F 91 H 20 112/59 95 12/19/21 12:32 12/19/21 12:32 12/19/21 12:32 12/19/21 12:32 12/19/21 12:32 General appearance: Present: no acute distress, other (Very alert today, verbali zing well but very confused still) - EENT Eyes: Present: PERRL, EOM intact ENT: hearing intact - Neck Neck: Present: supple - Respiratory Respiratory effort: labored Respiratory: bilateral: diminished, rhonchi (Mild) - Cardiovascular Rhythm: other (Controlled rate) - Extremities Extremities: No edema - Abdominal General gastrointestinal: soft, non-tender, non-distended, normal bowel sounds - Integumentary Integumentary: Absent: rash - Neurologic Neurologic: moves all extremities (Wrist restraints in place.), other (Awake, verbal but confused.) Results - Labs CBC & Chem 7: 12/19/21 07:16 12/19/21 07:16 Labs: Laboratory Last Values WBC 11.6 K/mm3 (4.5-11.0) H 12/19/21 07:16 RBC 2.95 M/mm3 (3.65-5.03) L 12/19/21 07:16 Hgb 8.5 gm/dl (11.8-15.2) L 12/19/21 07:16 Hct 28.1 % (35.5-45.6) L 12/19/21 07:16 MCV 95 fl (84-94) H 12/19/21 07:16 MCH 29 pg (28-32) 12/19/21 07:16 MCHC 30 % (32-34) L 12/19/21 07:16 RDW 16.9 % (13.2-15.2) H 12/19/21 07:16 Plt Count 159 K/mm3 (140-440) 12/19/21 07:16 Lymph % (Auto) 4.7 % (13.4-35.0) L 12/19/21 07:16 [place] % (Auto) 7.6 % (0.0-7.3) H 12/19/21 07:16 Eos % (Auto) 0.0 % (0.0-4.3) 12/19/21 07:16 Baso % (Auto) 0.5 % (0.0-1.8) 12/19/21 07:16 Lymph # (Auto) 0.5 K/mm3 (1.2-5.4) L 12/19/21 07:16 [place] # (Auto) 0.9 K/mm3 (0.0-0.8) H 12/19/21 07:16 Eos # (Auto) 0.0 K/mm3 (0.0-0.4) 12/19/21 07:16 Baso # (Auto) 0.1 K/mm3 (0.0-0.1) 12/19/21 07:16 Add Manual Diff Complete 11/21/21 19:36 Total Counted 100 11/21/21 19:36 Seg Neutrophils % 87.2 % (40.0-70.0) H 12/19/21 07:16 Seg Neuts % (Manual) 79.0 % (40.0-70.0) H 11/21/21 19:36 Lymphocytes % (Manual) 10.0 % (13.4-35.0) L 11/21/21 19:36 Monocytes % (Manual) 8.0 % (0.0-7.3) H 11/21/21 19:36 Basophils % (Manual) 3.0 % (0.0-1.8) H 11/21/21 19:36 Nucleated RBC % Not Reportable 11/21/21 19:36 Seg Neutrophils # 10.1 K/mm3 (1.8-7.7) H 12/19/21 07:16 Seg Neutrophils # Man 5.3 K/mm3 (1.8-7.7) 11/21/21 19:36 Band Neutrophils # 0.0 K/mm3 11/21/21 19:36 Lymphocytes # (Manual) 0.7 K/mm3 (1.2-5.4) L 11/21/21 19:36 Abs React Lymphs (Man) 0.0 K/mm3 11/21/21 19:36 Monocytes # (Manual) 0.5 K/mm3 (0.0-0.8) 11/21/21 19:36 Eosinophils # (Manual) 0.0 K/mm3 (0.0-0.4) 11/21/21 19:36 Basophils # (Manual) 0.2 K/mm3 (0.0-0.1) H 11/21/21 19:36 Metamyelocytes # 0.0 K/mm3 11/21/21 19:36 Myelocytes # 0.0 K/mm3 11/21/21 19:36 Promyelocytes # 0.0 K/mm3 11/21/21 19:36 Blast Cells # 0.0 K/mm3 11/21/21 19:36 WBC Morphology Not Reportable 11/21/21 19:36 Hypersegmented Neuts Not Reportable 11/21/21 19:36 Hyposegmented Neuts Not Reportable 11/21/21 19:36 Hypogranular Neuts Not Reportable 11/21/21 19:36 Smudge Cells Not Reportable 11/21/21 19:36 Toxic Granulation Not Reportable 11/21/21 19:36 Toxic Vacuolation Not Reportable 11/21/21 19:36 Dohle Bodies Not Reportable 11/21/21 19:36 Pelger-Huet Anomaly Not Reportable 11/21/21 19:36 Luan Rods Not Reportable 11/21/21 19:36 Platelet Estimate Consistent w auto 11/21/21 19:36 Clumped Platelets Not Reportable 11/21/21 19:36 Plt Clumps, EDTA Not Reportable 11/21/21 19:36 Large Platelets Not Reportable 11/21/21 19:36 Giant Platelets Not Reportable 11/21/21 19:36 Platelet Satelliting Not Reportable 11/21/21 19:36 Plt Morphology Comment Not Reportable 11/21/21 19:36 RBC Morphology Normal 11/21/21 19:36 Dimorphic RBCs Not Reportable 11/21/21 19:36 Polychromasia Not Reportable 11/21/21 19:36 Hypochromasia Not Reportable 11/21/21 19:36 Poikilocytosis Not Reportable 11/21/21 19:36 Anisocytosis Not Reportable 11/21/21 19:36 Microcytosis Not Reportable 11/21/21 19:36 Macrocytosis Not Reportable 11/21/21 19:36 Spherocytes Not Reportable 11/21/21 19:36 Pappenheimer Bodies Not Reportable 11/21/21 19:36 Sickle Cells Not Reportable 11/21/21 19:36 Target Cells Not Reportable 11/21/21 19:36 Tear Drop Cells Not Reportable 11/21/21 19:36 Ovalocytes Not Reportable 11/21/21 19:36 Helmet Cells Not Reportable 11/21/21 19:36 Christie-Vian Bodies Not Reportable 11/21/21 19:36 [place] Rings Not Reportable 11/21/21 19:36 Star Cells Not Reportable 11/21/21 19:36 Bite Cells Not Reportable 11/21/21 19:36 Crenated Cell Not Reportable 11/21/21 19:36 Elliptocytes Not Reportable 11/21/21 19:36 Acanthocytes (Spur) Not Reportable 11/21/21 19:36 Rouleaux Not Reportable 11/21/21 19:36 Hemoglobin C Crystals Not Reportable 11/21/21 19:36 Schistocytes Not Reportable 11/21/21 19:36 Malaria parasites Not Reportable 11/21/21 19:36 Kalia Bodies Not Reportable 11/21/21 19:36 Hem Pathologist Commnt No 11/21/21 19:36 D-Dimer 1279.46 ng/mlDDU (0-234) H 11/26/21 16:44 ABG pH 7.379 pH Units (7.350-7.450) 12/13/21 00:30 ABG pCO2 42.6 mm Hg 12/13/21 00:30 ABG pO2 125.3 mm Hg (80.0-90.0) H 12/13/21 00:30 ABG HCO3 24.6 mmol/L (20.0-26.0) 12/13/21 00:30 ABG O2 Saturation 98.4 % (95.0-99.0) 12/13/21 00:30 ABG O2 Content 14.3 (0.0-44) 12/13/21 00:30 ABG Base Excess -0.6 mmol/L (-2.0-3.0) 12/13/21 00:30 ABG Hemoglobin 10.4 gm/dl (14.0-18.0) L 12/13/21 00:30 ABG Carboxyhemoglobin 1.8 % (0.0-5.0) 12/13/21 00:30 ABG Methemoglobin 0.5 % (0.0-1.5) 12/13/21 00:30 Oxyhemoglobin 96.0 % (95.0-99.0) 12/13/21 00:30 FiO2 36 % 12/13/21 00:30 Sodium 144 mmol/L (137-145) 12/19/21 07:16 Potassium 3.8 mmol/L (3.6-5.0) D 12/19/21 07:16 Chloride 107.3 mmol/L (98-107) H 12/19/21 07:16 Carbon Dioxide 25 mmol/L (22-30) 12/19/21 07:16 Anion Gap 16 mmol/L 12/19/21 07:16 BUN 19 mg/dL (9-20) 12/19/21 07:16 Creatinine 1.3 mg/dL (0.8-1.3) 12/19/21 07:16 Estimated GFR > 60 ml/min 12/19/21 07:16 BUN/Creatinine Ratio 15 % 12/19/21 07:16 Glucose 252 mg/dL (75-100) H 12/19/21 07:16 POC Glucose 264 mg/dL (70-105) H 12/19/21 16:59 Hemoglobin A1c 7.9 % (4-6) H 12/16/21 15:02 Osmolality 316 Mosm/kg 11/27/21 Unknown Uric Acid 9.8 mg/dL (3.5-7.6) H 11/27/21 Unknown Calcium 8.5 mg/dL (8.4-10.2) 12/19/21 07:16 Phosphorus 1.90 mg/dL (2.5-4.5) L 12/03/21 04:00 Magnesium 2.30 mg/dL (1.7-2.3) 12/07/21 05:36 Total Bilirubin 0.50 mg/dL (0.1-1.2) 12/19/21 07:16 AST 14 units/L (5-40) 12/19/21 07:16 ALT 14 units/L (7-56) 12/19/21 07:16 Alkaline Phosphatase 113 units/L (35-129) 12/19/21 07:16 Ammonia 12.0 umol/L (25-60) L 11/28/21 12:59 C-Reactive Protein 13.00 mg/dL (0.00-1.30) H 11/27/21 05:17 Total Protein 4.5 g/dL (6.3-8.2) L 12/19/21 07:16 Albumin 2.8 g/dL (3.9-5) L 12/19/21 07:16 Albumin/Globulin Ratio 1.6 % 12/19/21 07:16 Procalcitonin 3.10 ng/mL (<0.15) 11/26/21 08:21 TSH 4.800 mlU/mL (0.270-4.200) H 11/21/21 19:37 Urine Color Kimberli (Yellow) 11/27/21 Unknown Urine Turbidity Slightly-cloudy (Clear) 11/27/21 Unknown Urine pH 5.0 (5.0-7.0) 11/27/21 Unknown Ur Specific [place] 1.013 (1.003-1.030) 11/27/21 Unknown Urine Protein <15 mg/dl mg/dL (Negative) 11/27/21 Unknown Urine Glucose (UA) 50 mg/dL (Negative) 11/27/21 Unknown Urine Ketones Tr mg/dL (Negative) 11/27/21 Unknown Urine Blood Neg (Negative) 11/27/21 Unknown Urine Nitrite Neg (Negative) 11/27/21 Unknown Urine Bilirubin Neg (Negative) 11/27/21 Unknown Urine Urobilinogen < 2.0 mg/dL (<2.0) 11/27/21 Unknown Ur Leukocyte Esterase Neg (Negative) 11/27/21 Unknown Urine WBC (Auto) 13.0 /HPF (0.0-6.0) H 11/27/21 Unknown Urine RBC (Auto) 2.0 /HPF (0.0-6.0) 11/27/21 Unknown U Epithel Cells (Auto) 1.0 /HPF (0-13.0) 11/27/21 Unknown Urine Bacteria (Auto) 1+ /HPF (Negative) 11/27/21 Unknown Urine Mucus Few /HPF 11/27/21 Unknown Urine Yeast (Budding) 2+ /HPF 11/27/21 Unknown Urine Creatinine 80.9 mg/dL (0.1-20.0) H 11/27/21 Unknown Urine Sodium 36 mmol/L 11/27/21 Unknown Urine Total Protein 43 mg/dL (5-11.8) H 11/27/21 Unknown Coronavirus (PCR) Positive (Negative) A 12/17/21 08:00 Fritz/IV: Voiding Method Incontinent Active Medications - Current Medications Current Medications: Generic Name Dose Route Start Last Admin Trade Name Freq PRN Reason Stop Dose Admin Acetaminophen 650 mg 11/22/21 05:48 Acetaminophen 325 Mg Tab PO Q4H PRN Pain MILD(1-3)/Fever >100.5/BRODY Albuterol 2.5 mg 11/25/21 12:00 Albuterol 2.5 Mg/3 Ml Nebu IH Q4HRT PRN Shortness Of Breath Dextrose 0 ml 12/13/21 00:12 12/16/21 23:44 Dextrose 10% *Hypoglycemia IV 250 ml PRN PRN Administration Hypoglycemia Docusate Sodium 100 mg 12/13/21 22:00 12/19/21 09:00 Docusate Sodium 100 Mg/10 Ml Oral Liqd FEEDTUBE 100 mg BID NANDINI Administration Haloperidol Lactate 5 mg 12/07/21 15:34 12/19/21 17:25 Haloperidol Lactate 5 Mg/1 Ml Inj IM 5 mg Q6H PRN Administration Agitation Potassium Chloride 10 meq/ 1,005 mls @ 75 mls/hr 12/19/21 17:00 Sodium Chloride IV DIRECT NANDINI Ondansetron HCl 4 mg 11/22/21 05:48 12/03/21 21:38 Ondansetron 4 Mg/2 Ml Inj IV 4 mg Q8H PRN Administration Nausea And Vomiting Sodium Chloride 10 ml 11/22/21 10:00 12/19/21 09:00 Sodium Chloride 0.9% 10 Ml Flush Syringe IV 10 ml BID NANDINI Administration Sodium Chloride 10 ml 12/15/21 14:19 Sodium Chloride 0.9% 50 Ml Ivpb IV PRN PRN FLUSH Nutrition/Malnutrition Assess - Dietary Evaluation Nutrition/Malnutrition Findings: Nutrition Notes Start: 11/22/21 14 :16 Freq: Status: Active Protocol: Document 12/16/21 09:48 NICKO (Rec: 12/16/21 10:05 NICKO [id number]) Nutrition Notes Initial or Follow up Reassessment Current Diagnosis Acute Kidney Injury,Coronary Artery Disease,Hypertension, Respiratory Failure Other Pertinent Diagnosis COVID-19, Pneumonia, UTI, Acute encephalopathy, Cardiomyopathy, HFrEF. Current Diet TF-Promote @ 57 ml/hr (since D 12/11). Labs/Tests 12/15: Na 147, Cl 111.3, BUN 22, Glu 214. Pertinent Medications 12/15: Nutritionally unremarkable. Height 5 ft 11 in Weight 68.6 kg [place] Body Weight (kg) 78.18 BMI 21.1 Weight change and time frame No body weight change reported . Weight Status Underweight Subjective/Other Information RD consult for routine F/U on TF tolerance. TF well tolerated according to RN notes. Pt pending SNF placement for discharge. Pt possibly getting PEG, after discussing it with spouse. Percent of energy/protein needs met: Prescribed TF-Promote @ 57 ml/ hr provides for energy/protein needs (1,378 Kcal/86 g) during LOS, 75% Kcal; 100% AA. Burn Absent Trauma Absent GI Symptoms None Food Allergy No Current % PO Other Minimum of two criteria No #3 Nutrition Diagnosis Inadequate oral intake Diagnosis Progress(for reassessment Continues documentation) Is patient on ventilator? No Is Patient Ambulatory and/or Out of Bed Yes REE-([place]-St. Jeor-ambulatory/OOB) [ 1837.069 [id number]] Calculation Used for Recommendations 70-80% of EEN. Additional Notes 15-20 Kcal/Kg ABW. Protein: 1.2-2 g/Kg; 83-138 g/ day. Fluids: 1 ml/Kcal, or as per MD. Nutrition Intervention Nutrition Support: Continue Promote @ 57 ml/hr. Flush 110 ml water Q 4 hr, or as per MD. Kcal 1,378 Protein (gm) 86 Carbohydrates (gm) 179 Fat (gm) 36 Fluid (mL) 1,156 Fiber (gm) 0 % RDI: 75% Kcal; 100% AA. Goal #1 Provide at least 75% of energy /protein needs through Enteral Feeding during LOS. Follow-Up By: 12/23/21 Additional Comments Continue monitoring TF tolerance and BM.
[2021-12-19] MEDS: POTASSIUM CHLORIDE 10 MEQ in SODIUM CHLORIDE 0.9% 1000 ML 1,000 ML IV SCH ×2 (18:32→23:49)
[2021-12-20] MEDS: HALOPERIDOL LACTATE 5 MG/1 ML INJ IM PRN
[2021-12-20] MEDS: DOCUSATE SODIUM 100 MG/10 ML ORAL LIQD FEEDTUBE SCH ×3 (10:00→22:23)
--- NOTE | 2021-12-20 10:07 | Progress Note ---
Subjective - Reason for Consult Consult date: 12/20/21 Reason for consult: agitation - Chief Complaint Chief complaint: Patient seen resting in bed. He is confused. He is calm and cooperative. He is not in restraints today. He has a dobhoff in place. He says he slept well. He denies SI/HI. REVIEW OF SYSTEMS MENTAL STATUS EXAMINATION Assessment (1)Delirium Current Visit: Yes Status: Acute Treatment plan Continue previous prescribed meds Risks, benefits and alternatives of medications discussed with the patient, questions answered and consent obtained from patient. PSYCHOTHERAPY: Supportive psychotherapy provided MEDICAL: Per primary team DELIRIUM PRECAUTIONS: Please re-orient patient frequently, keep lights on during the day, and minimize benzodiazepines and opiates as these medications could worsen patient's confusion. ADA ACCOMMODATION CONSULTANT: Per medical team DISPOSITION: Do not Recommend acute inpatient psychiatric hospitalization. Will follow for medication management. Thank you for the consult. Please contact with any questions and/or concerns. Case staffed with Dr. Sanchez Medications and Allergies Mental Status Exam - Vital signs Last Vital Signs Temp 98.2 F 12/20/21 05:05 Pulse 74 12/20/21 05:05 Resp 18 12/20/21 05:05 BP 112/64 12/20/21 05:05 Pulse Ox 92 12/20/21 05:05
[2021-12-20] MEDS: POTASSIUM CHLORIDE 10 MEQ in SODIUM CHLORIDE 0.9% 1000 ML 1,000 ML IV SCH (11:09)
--- NOTE | 2021-12-20 19:33 | Progress Note ---
Assessment and Plan Assessment and plan: 81-year-old man past medical history hypertension, diabetes presenting the hospital due to confusion. He had been discharged from [facility] 2 days prior to admission and confusion had not improved since then. Family was unaware why he was in the hospital previously. Severe COVID-19 pneumonia: Patient presented with a week of symptoms, chest x- ray with diffuse bilateral infiltrates. Inflammatory markers elevated with Acute hypoxemic respiratory failure: #Acute metabolic encephalopathy -CT head negative for acute findings; MRI unable to be performed secondary to agitation -Etiology likely multifactorial including underlying dementia, Covid encephalopathy, dehydration and hyponatremia -Delirium precautions -Mental status much improved on 12/18, alert and verbal but still confused -Patient remains restless requiring wrist restraints to prevent him from pulling IV lines and NG tube. -On Haldol, behavioral health consulted. #Poor oral intake/dehydration -patient noted to have poor oral intake while sleepy -ST eval ordered; recommended n.p.o. and tube feeds -dobhoff placed for TF in meantime -GI attempted but unable to place PEG tube 12/17 -IR consulted but CT showed retrocardiac stomach, not possible to place PEG tube, recommends surgery to perform J-tube placement Patient much alert on 12/18, reportedly passed bedside swallow evaluation by RN, trial with pured diet. - ST reevaluated and recommended trial with pured diet on 12/19 -RN reports on 12/20 that patient is not able to eat much, will resume a tube feeds in the meantime. Continue aspiration precautions #Acute hypoxic respiratory failure-improving #COVID-19 pneumonia-stable -currently needing 2-4 L NC, -Was not candidate for remdesivir due to initial ROSANA -s/p steroids x10 days, resumed Decadron on 12/21 for wheezing, hypoxia and respiratory distress -Mild to moderate dyspnea at rest off O2 on 06/19, O2 resumed -continue lovenox #Hypoglycemia #hx of Insulin-dependent type 2 diabetes -patient with glucose as low as 18. D10W infusion started -On tube feeds -will discontinue SSI -Goal glucose 140-180 while inpatient #CAD #Chronic heart failure with reduced ejection fraction -TTE revealing EF of 35 to 40% #Bradycardia-improved -Cardiology following, assistance appreciated -Home beta-tee held #Hypertension -Blood pressure controlled, no meds while inpatient #ROSANA-resolved -Secondary to vasomotor nephropathy #UTI -Status post antibiotics -Urine culture shows 10-100 K Natalia species #Hypokalemia -We will continue to replete and monitor #Hypernatremia-resolving On D10W infusion, nephrology following #Severe debility -Evaluated by PT and OT, recommendation for subacute rehab at discharge #Discharge planning -PEG tube could not be placed with GI and IR. IR recommends J-tube placement by surgery. ST reevaluated and recommended trial with pured diet on 12/19 RN reports poor p.o. intake on 12/20, tube feeds to be resumed in the meantime. . accepted to take patient home with home hospice. Discussed with the nursing staff, and case managers History Interval history: Patient remains physically restrained with wrist restraints in place. Remains confused. He is less alert today. He has mild to moderate dyspnea and his O2 is off. Later in the afternoon, patient was placed on O2 and BiPAP for respiratory distress. Currently, the above tube is in place but not getting tube feeds. Getting IV fluids. Hospitalist Physical - Constitutional Vitals: Temp Pulse Resp BP Pulse Ox 97.4 F L 87 18 122/71 91 12/20/21 11:37 12/20/21 11:37 12/20/21 11:37 12/20/21 11:37 12/20/21 11:37 General appearance: Present: no acute distress, disheveled, other (Less alert today, verbalizing but very confused still) - EENT Eyes: Present: PERRL, EOM intact ENT: other (Oral mucosa dry) - Neck Neck: Present: supple - Respiratory Respiratory effort: labored Respiratory: bilateral: diminished, wheezing (Mild wheezes) - Cardiovascular Rhythm: regular - Extremities Extremities: No edema - Abdominal General gastrointestinal: soft, non-tender, non-distended, normal bowel sounds, other (Dobbhoff tube in place but off tube feeds) - Integumentary Integumentary: Absent: rash - Psychiatric Psychiatric: other (Remains confused and restless.) - Neurologic Neurologic: other (Awake but less alert today, verbal, appears lethargic/sluggish, wrist restraints in place.) Results - Labs CBC & Chem 7: 12/19/21 07:16 12/19/21 07:16 Labs: Laboratory Last Values WBC 11.6 K/mm3 (4.5-11.0) H 12/19/21 07:16 RBC 2.95 M/mm3 (3.65-5.03) L 12/19/21 07:16 Hgb 8.5 gm/dl (11.8-15.2) L 12/19/21 07:16 Hct 28.1 % (35.5-45.6) L 12/19/21 07:16 MCV 95 fl (84-94) H 12/19/21 07:16 MCH 29 pg (28-32) 12/19/21 07:16 MCHC 30 % (32-34) L 12/19/21 07:16 RDW 16.9 % (13.2-15.2) H 12/19/21 07:16 Plt Count 159 K/mm3 (140-440) 12/19/21 07:16 Lymph % (Auto) 4.7 % (13.4-35.0) L 12/19/21 07:16 [place] % (Auto) 7.6 % (0.0-7.3) H 12/19/21 07:16 Eos % (Auto) 0.0 % (0.0-4.3) 12/19/21 07:16 Baso % (Auto) 0.5 % (0.0-1.8) 12/19/21 07:16 Lymph # (Auto) 0.5 K/mm3 (1.2-5.4) L 12/19/21 07:16 [place] # (Auto) 0.9 K/mm3 (0.0-0.8) H 12/19/21 07:16 Eos # (Auto) 0.0 K/mm3 (0.0-0.4) 12/19/21 07:16 Baso # (Auto) 0.1 K/mm3 (0.0-0.1) 12/19/21 07:16 Add Manual Diff Complete 11/21/21 19:36 Total Counted 100 11/21/21 19:36 Seg Neutrophils % 87.2 % (40.0-70.0) H 12/19/21 07:16 Seg Neuts % (Manual) 79.0 % (40.0-70.0) H 11/21/21 19:36 Lymphocytes % (Manual) 10.0 % (13.4-35.0) L 11/21/21 19:36 Monocytes % (Manual) 8.0 % (0.0-7.3) H 11/21/21 19:36 Basophils % (Manual) 3.0 % (0.0-1.8) H 11/21/21 19:36 Nucleated RBC % Not Reportable 11/21/21 19:36 Seg Neutrophils # 10.1 K/mm3 (1.8-7.7) H 12/19/21 07:16 Seg Neutrophils # Man 5.3 K/mm3 (1.8-7.7) 11/21/21 19:36 Band Neutrophils # 0.0 K/mm3 11/21/21 19:36 Lymphocytes # (Manual) 0.7 K/mm3 (1.2-5.4) L 11/21/21 19:36 Abs React Lymphs (Man) 0.0 K/mm3 11/21/21 19:36 Monocytes # (Manual) 0.5 K/mm3 (0.0-0.8) 11/21/21 19:36 Eosinophils # (Manual) 0.0 K/mm3 (0.0-0.4) 11/21/21 19:36 Basophils # (Manual) 0.2 K/mm3 (0.0-0.1) H 11/21/21 19:36 Metamyelocytes # 0.0 K/mm3 11/21/21 19:36 Myelocytes # 0.0 K/mm3 11/21/21 19:36 Promyelocytes # 0.0 K/mm3 11/21/21 19:36 Blast Cells # 0.0 K/mm3 11/21/21 19:36 WBC Morphology Not Reportable 11/21/21 19:36 Hypersegmented Neuts Not Reportable 11/21/21 19:36 Hyposegmented Neuts Not Reportable 11/21/21 19:36 Hypogranular Neuts Not Reportable 11/21/21 19:36 Smudge Cells Not Reportable 11/21/21 19:36 Toxic Granulation Not Reportable 11/21/21 19:36 Toxic Vacuolation Not Reportable 11/21/21 19:36 Dohle Bodies Not Reportable 11/21/21 19:36 Pelger-Huet Anomaly Not Reportable 11/21/21 19:36 Luan Rods Not Reportable 11/21/21 19:36 Platelet Estimate Consistent w auto 11/21/21 19:36 Clumped Platelets Not Reportable 11/21/21 19:36 Plt Clumps, EDTA Not Reportable 11/21/21 19:36 Large Platelets Not Reportable 11/21/21 19:36 Giant Platelets Not Reportable 11/21/21 19:36 Platelet Satelliting Not Reportable 11/21/21 19:36 Plt Morphology Comment Not Reportable 11/21/21 19:36 RBC Morphology Normal 11/21/21 19:36 Dimorphic RBCs Not Reportable 11/21/21 19:36 Polychromasia Not Reportable 11/21/21 19:36 Hypochromasia Not Reportable 11/21/21 19:36 Poikilocytosis Not Reportable 11/21/21 19:36 Anisocytosis Not Reportable 11/21/21 19:36 Microcytosis Not Reportable 11/21/21 19:36 Macrocytosis Not Reportable 11/21/21 19:36 Spherocytes Not Reportable 11/21/21 19:36 Pappenheimer Bodies Not Reportable 11/21/21 19:36 Sickle Cells Not Reportable 11/21/21 19:36 Target Cells Not Reportable 11/21/21 19:36 Tear Drop Cells Not Reportable 11/21/21 19:36 Ovalocytes Not Reportable 11/21/21 19:36 Helmet Cells Not Reportable 11/21/21 19:36 Christie-Wheatley Bodies Not Reportable 11/21/21 19:36 Strang Rings Not Reportable 11/21/21 19:36 Star Cells Not Reportable 11/21/21 19:36 Bite Cells Not Reportable 11/21/21 19:36 Crenated Cell Not Reportable 11/21/21 19:36 Elliptocytes Not Reportable 11/21/21 19:36 Acanthocytes (Spur) Not Reportable 11/21/21 19:36 Rouleaux Not Reportable 11/21/21 19:36 Hemoglobin C Crystals Not Reportable 11/21/21 19:36 Schistocytes Not Reportable 11/21/21 19:36 Malaria parasites Not Reportable 11/21/21 19:36 Kalia Bodies Not Reportable 11/21/21 19:36 Hem Pathologist Commnt No 11/21/21 19:36 D-Dimer 1279.46 ng/mlDDU (0-234) H 11/26/21 16:44 ABG pH 7.379 pH Units (7.350-7.450) 12/13/21 00:30 ABG pCO2 42.6 mm Hg 12/13/21 00:30 ABG pO2 125.3 mm Hg (80.0-90.0) H 12/13/21 00:30 ABG HCO3 24.6 mmol/L (20.0-26.0) 12/13/21 00:30 ABG O2 Saturation 98.4 % (95.0-99.0) 12/13/21 00:30 ABG O2 Content 14.3 (0.0-44) 12/13/21 00:30 ABG Base Excess -0.6 mmol/L (-2.0-3.0) 12/13/21 00:30 ABG Hemoglobin 10.4 gm/dl (14.0-18.0) L 12/13/21 00:30 ABG Carboxyhemoglobin 1.8 % (0.0-5.0) 12/13/21 00:30 ABG Methemoglobin 0.5 % (0.0-1.5) 12/13/21 00:30 Oxyhemoglobin 96.0 % (95.0-99.0) 12/13/21 00:30 FiO2 36 % 12/13/21 00:30 Sodium 144 mmol/L (137-145) 12/19/21 07:16 Potassium 3.8 mmol/L (3.6-5.0) D 12/19/21 07:16 Chloride 107.3 mmol/L (98-107) H 12/19/21 07:16 Carbon Dioxide 25 mmol/L (22-30) 12/19/21 07:16 Anion Gap 16 mmol/L 12/19/21 07:16 BUN 19 mg/dL (9-20) 12/19/21 07:16 Creatinine 1.3 mg/dL (0.8-1.3) 12/19/21 07:16 Estimated GFR > 60 ml/min 12/19/21 07:16 BUN/Creatinine Ratio 15 % 12/19/21 07:16 Glucose 252 mg/dL (75-100) H 12/19/21 07:16 POC Glucose 202 mg/dL (70-105) H 12/20/21 18:30 Hemoglobin A1c 7.9 % (4-6) H 12/16/21 15:02 Osmolality 316 Mosm/kg 11/27/21 Unknown Uric Acid 9.8 mg/dL (3.5-7.6) H 11/27/21 Unknown Calcium 8.5 mg/dL (8.4-10.2) 12/19/21 07:16 Phosphorus 1.90 mg/dL (2.5-4.5) L 12/03/21 04:00 Magnesium 2.30 mg/dL (1.7-2.3) 12/07/21 05:36 Total Bilirubin 0.50 mg/dL (0.1-1.2) 12/19/21 07:16 AST 14 units/L (5-40) 12/19/21 07:16 ALT 14 units/L (7-56) 12/19/21 07:16 Alkaline Phosphatase 113 units/L (35-129) 12/19/21 07:16 Ammonia 12.0 umol/L (25-60) L 11/28/21 12:59 C-Reactive Protein 13.00 mg/dL (0.00-1.30) H 11/27/21 05:17 Total Protein 4.5 g/dL (6.3-8.2) L 12/19/21 07:16 Albumin 2.8 g/dL (3.9-5) L 12/19/21 07:16 Albumin/Globulin Ratio 1.6 % 12/19/21 07:16 Procalcitonin 3.10 ng/mL (<0.15) 11/26/21 08:21 TSH 4.800 mlU/mL (0.270-4.200) H 11/21/21 19:37 Urine Color Kimberli (Yellow) 11/27/21 Unknown Urine Turbidity Slightly-cloudy (Clear) 11/27/21 Unknown Urine pH 5.0 (5.0-7.0) 11/27/21 Unknown Ur Specific [place] 1.013 (1.003-1.030) 11/27/21 Unknown Urine Protein <15 mg/dl mg/dL (Negative) 11/27/21 Unknown Urine Glucose (UA) 50 mg/dL (Negative) 11/27/21 Unknown Urine Ketones Tr mg/dL (Negative) 11/27/21 Unknown Urine Blood Neg (Negative) 11/27/21 Unknown Urine Nitrite Neg (Negative) 11/27/21 Unknown Urine Bilirubin Neg (Negative) 11/27/21 Unknown Urine Urobilinogen < 2.0 mg/dL (<2.0) 11/27/21 Unknown Ur Leukocyte Esterase Neg (Negative) 11/27/21 Unknown Urine WBC (Auto) 13.0 /HPF (0.0-6.0) H 11/27/21 Unknown Urine RBC (Auto) 2.0 /HPF (0.0-6.0) 11/27/21 Unknown U Epithel Cells (Auto) 1.0 /HPF (0-13.0) 11/27/21 Unknown Urine Bacteria (Auto) 1+ /HPF (Negative) 11/27/21 Unknown Urine Mucus Few /HPF 11/27/21 Unknown Urine Yeast (Budding) 2+ /HPF 11/27/21 Unknown Urine Creatinine 80.9 mg/dL (0.1-20.0) H 11/27/21 Unknown Urine Sodium 36 mmol/L 11/27/21 Unknown Urine Total Protein 43 mg/dL (5-11.8) H 11/27/21 Unknown Coronavirus (PCR) Positive (Negative) A 12/17/21 08:00 Fritz/IV: Voiding Method Incontinent Active Medications - Current Medications Current Medications: Generic Name Dose Route Start Last Admin Trade Name Freq PRN Reason Stop Dose Admin Acetaminophen 650 mg 11/22/21 05:48 Acetaminophen 325 Mg Tab PO Q4H PRN Pain MILD(1-3)/Fever >100.5/BRODY Albuterol 2.5 mg 11/25/21 12:00 Albuterol 2.5 Mg/3 Ml Nebu IH Q4HRT PRN Shortness Of Breath Dextrose 0 ml 12/13/21 00:12 12/16/21 23:44 Dextrose 10% *Hypoglycemia IV 250 ml PRN PRN Administration Hypoglycemia Docusate Sodium 100 mg 12/13/21 22:00 12/20/21 11:08 Docusate Sodium 100 Mg/10 Ml Oral Liqd FEEDTUBE 100 mg BID NANDINI Administration Haloperidol Lactate 5 mg 12/07/21 15:34 12/20/21 00:00 Haloperidol Lactate 5 Mg/1 Ml Inj IM 5 mg Q6H PRN Administration Agitation Potassium Chloride 10 meq/ 1,005 mls @ 75 mls/hr 12/19/21 17:00 12/20/21 11:09 Sodium Chloride IV 75 mls/hr DIRECT NANDINI Administration Ondansetron HCl 4 mg 11/22/21 05:48 12/03/21 21:38 Ondansetron 4 Mg/2 Ml Inj IV 4 mg Q8H PRN Administration Nausea And Vomiting Sodium Chloride 10 ml 11/22/21 10:00 12/20/21 10:00 Sodium Chloride 0.9% 10 Ml Flush Syringe IV 10 ml BID NANDINI Administration Sodium Chloride 10 ml 12/15/21 14:19 Sodium Chloride 0.9% 50 Ml Ivpb IV PRN PRN FLUSH Nutrition/Malnutrition Assess - Dietary Evaluation Nutrition/Malnutrition Findings: Nutrition Notes Start: 11/22/21 14:16 Freq: Status: Active Protocol: Document 12/16/21 09:48 NICKO (Rec: 12/16/21 10:05 NICKO [id number]) Nutrition Notes Initial or Follow up Reassessment Current Diagnosis Acute Kidney Injury,Coronary Artery Disease,Hypertension, Respiratory Failure Other Pertinent Diagnosis COVID-19, Pneumonia, UTI, Acute encephalopathy, Cardiomyopathy, HFrEF. Current Diet TF-Promote @ 57 ml/hr (since D 12/11). Labs/Tests 12/15: Na 147, Cl 111.3, BUN 22, Glu 214. Pertinent Medications 12/15: Nutritionally unremarkable. Height 5 ft 11 in Weight 68.6 kg [place] Body Weight (kg) 78.18 BMI 21.1 Weight change and time frame No body weight change reported . Weight Status Underweight Subjective/Other Information RD consult for routine F/U on TF tolerance. TF well tolerated according to RN notes. Pt pending SNF placement for discharge. Pt possibly getting PEG, after discussing it with spouse. Percent of energy/protein needs met: Prescribed TF-Promote @ 57 ml/ hr provides for energy/protein needs (1,378 Kcal/86 g) during LOS, 75% Kcal; 100% AA. Burn Absent Trauma Absent GI Symptoms None Food Allergy No Current % PO Other Minimum of two criteria No #3 Nutrition Diagnosis Inadequate oral intake Diagnosis Progress(for reassessment Continues documentation) Is patient on ventilator? No Is Patient Ambulatory and/or Out of Bed Yes REE-([place]-St. Jeor-ambulatory/OOB) [ 1837.069 [id number]] Calculation Used for Recommendations 70-80% of EEN. Additional Notes 15-20 Kcal/Kg ABW. Protein: 1.2-2 g/Kg; 83-138 g/ day. Fluids: 1 ml/Kcal, or as per MD. Nutrition Intervention Nutrition Support: Continue Promote @ 57 ml/hr. Flush 110 ml water Q 4 hr, or as per MD. Kcal 1,378 Protein (gm) 86 Carbohydrates (gm) 179 Fat (gm) 36 Fluid (mL) 1,156 Fiber (gm) 0 % RDI: 75% Kcal; 100% AA. Goal #1 Provide at least 75% of energy /protein needs through Enteral Feeding during LOS. Follow-Up By: 12/23/21 Additional Comments Continue monitoring TF tolerance and BM.
[2021-12-21] MEDS: HALOPERIDOL LACTATE 5 MG/1 ML INJ IM PRN (00:36)
--- NOTE | 2021-12-21 05:52 | XRay Report ---
CHEST 1 VIEW 12/21/2021 4:41 AM INDICATION / CLINICAL INFORMATION: Hypoxia. COMPARISON: None available. FINDINGS: SUPPORT DEVICES: There is a feeding tube with the tip overlying the stomach. HEART / MEDIASTINUM: There is mild cardiomegaly and pulmonary vascular congestion. LUNGS / PLEURA: There is mild to moderate left basilar pleuroparenchymal opacity. There is mild patch y parenchymal disease in the right lower lung. No pneumothorax. ADDITIONAL FINDINGS: No significant additional findings. IMPRESSION: Mild to moderate pleuroparenchymal disease in the left lower hemithorax and mild patchy p arenchymal disease in the right lower lung. Signer Name: Sujit Hou MD Signed: 12/21/2021 5:47 AM Workstation Name: [id number]
[2021-12-21] MEDS: DOCUSATE SODIUM 100 MG/10 ML ORAL LIQD FEEDTUBE SCH ×3 (08:42→21:21)
[2021-12-21 09:49] LABS: Basophils # (Auto) 0.1 K/mm3 (0.0-0.1); Basophils % (Auto) 0.5 % (0.0-1.8); Eosinophils % (Auto) 0.2 % (0.0-4.3); Hematocrit 27.4 % (35.5-45.6); Hemoglobin 8.6 gm/dl (11.8-15.2); Lymphocytes # (Auto) 0.5 K/mm3 (1.2-5.4); Lymphocytes % (Auto) 4.7 % (13.4-35.0); Mean Corpuscular HGB Conc 31 % (32-34); Mean Corpuscular Volume 97 fl (84-94); Monocytes % (Auto) 8.4 % (0.0-7.3); Platelet Count 193 K/mm3 (140-440); Red Blood Count 2.83 M/mm3 (3.65-5.03)
[2021-12-21 09:57] LABS: Albumin 2.7 g/dL (3.9-5); Calcium 8.6 mg/dL (8.4-10.2)
[2021-12-21] MEDS: dexAMETHasone 4 MG/ML VIAL IV SCH (12:26)
[2021-12-21] MEDS: POTASSIUM CHLORIDE 10 MEQ in SODIUM CHLORIDE 0.9% 1000 ML 1,000 ML IV SCH (15:47)
--- NOTE | 2021-12-21 17:03 | Progress Note ---
Assessment and Plan Assessment and plan: 81-year-old man past medical history hypertension, diabetes presenting the hospital due to confusion. He had been discharged from [facility], [place] 2 days prior to admission and confusion had not improved since then. Family was unaware why he was in the hospital previously. Severe COVID-19 pneumonia: Patient presented with a week of symptoms, chest x- ray with diffuse bilateral infiltrates. Inflammatory markers elevated with Acute hypoxemic respiratory failure: #Acute metabolic encephalopathy -CT head negative for acute findings; MRI unable to be performed secondary to agitation -Etiology likely multifactorial including underlying dementia, Covid encephalopathy, dehydration and hyponatremia -Delirium precautions -Mental status much improved on 12/18, alert and verbal but still confused -Patient remains restless requiring wrist restraints to prevent him from pulling IV lines and NG tube. -On Haldol, behavioral health consulted. #Poor oral intake/dehydration -patient noted to have poor oral intake while sleepy -ST eval ordered; recommended n.p.o. and tube feeds -dobhoff placed for TF in meantime -GI attempted but unable to place PEG tube 12/17 -IR consulted but CT showed retrocardiac stomach, not possible to place PEG tube, recommends surgery to perform J-tube placement Patient much alert on 12/18, reportedly passed bedside swallow evaluation by RN, trial with pured diet. - ST reevaluated and recommended trial with pured diet on 12/19 -RN reports that he is tolerating pured diet, tube feeds currently on hold. Continue aspiration precautions #Acute hypoxic respiratory failure-improving #COVID-19 pneumonia-stable -currently needing 2-4 L NC, -Was not candidate for remdesivir due to initial ROSANA -s/p steroids x10 days, resumed Decadron on 12/21 for wheezing, hypoxia and respiratory distress -Mild to moderate dyspnea at rest off O2 on 06/19, O2 resumed -Placed on high flow oxygen on 12/21, to be weaned. Spoke this to nursing staff. #Hypoglycemia #hx of Insulin-dependent type 2 diabetes -patient with glucose as low as 18. D10W infusion started -On tube feeds, currently on hold -RN reports that he is tolerating. Diet -Goal glucose 140-180 while inpatient #CAD #Chronic heart failure with reduced ejection fraction -TTE revealing EF of 35 to 40% #Bradycardia-improved -Cardiology following, assistance appreciated -Home beta-tee held #Hypertension -Blood pressure controlled, no meds while inpatient #ROSANA-resolved -Secondary to vasomotor nephropathy #UTI -Status post antibiotics -Urine culture shows 10-100 K Natalia species #Hypokalemia -We will continue to replete and monitor #Hypernatremia-resolving On D10W infusion, nephrology following #Severe debility -Evaluated by PT and OT, recommendation for subacute rehab at discharge #Discharge planning -PEG tube could not be placed with GI and IR. IR recommends J-tube placement by surgery. ST reevaluated and recommended trial with pured diet on 12/19 Placed on high flow O2 on 12/21, RT to wean to nasal cannula . accepted to take patient home with home hospice., Possible discharge tomorrow Discussed with the nursing staff, and therapeutic case manager History Interval history: Patient is drowsy/lethargic, confused. Off wrist restraints today. RN reports that he is tolerating pured diet. Currently placed on high flow oxygen, to be weaned Hospitalist Physical - Constitutional Vitals: Temp Pulse Resp BP Pulse Ox 98.5 F 74 18 107/54 96 12/21/21 05:05 12/21/21 05:05 12/21/21 05:05 12/21/21 05:05 12/21/21 16:33 General appearance: Present: mild distress, cachectic, disheveled, other (Less alert today, verbalizing but very confused still) - EENT Eyes: Present: PERRL, EOM intact ENT: other (Oromucosa dry.) - Neck Neck: Present: supple - Respiratory Respiratory effort: labored Respiratory: bilateral: diminished (Mild respiratory distress, on high flow O2) - Cardiovascular Rhythm: regular - Extremities Extremities: No edema - Abdominal General gastrointestinal: soft, non-tender, non-distended, normal bowel sounds - Integumentary Integumentary: Absent: rash - Psychiatric Psychiatric: other (Mildly anxious) - Neurologic Neurologic: no moves all extremities, other (Lethargic, verbal, very confused.) Results - Labs CBC & Chem 7: 12/21/21 09:17 12/21/21 09:17 Labs: Laboratory Last Values WBC 11.7 K/mm3 (4.5-11.0) H 12/21/21 09:17 RBC 2.83 M/mm3 (3.65-5.03) L 12/21/21 09:17 Hgb 8.6 gm/dl (11.8-15.2) L 12/21/21 09:17 Hct 27.4 % (35.5-45.6) L 12/21/21 09:17 MCV 97 fl (84-94) H 12/21/21 09:17 MCH 30 pg (28-32) 12/21/21 09:17 MCHC 31 % (32-34) L 12/21/21 09:17 RDW 16.0 % (13.2-15.2) H 12/21/21 09:17 Plt Count 193 K/mm3 (140-440) 12/21/21 09:17 Lymph % (Auto) 4.7 % (13.4-35.0) L 12/21/21 09:17 [place] % (Auto) 8.4 % (0.0-7.3) H 12/21/21 09:17 Eos % (Auto) 0.2 % (0.0-4.3) 12/21/21 09:17 Baso % (Auto) 0.5 % (0.0-1.8) 12/21/21 09:17 Lymph # (Auto) 0.5 K/mm3 (1.2-5.4) L 12/21/21 09:17 [place] # (Auto) 1.0 K/mm3 (0.0-0.8) H 12/21/21 09:17 Eos # (Auto) 0.0 K/mm3 (0.0-0.4) 12/21/21 09:17 Baso # (Auto) 0.1 K/mm3 (0.0-0.1) 12/21/21 09:17 Add Manual Diff Complete 11/21/21 19:36 Total Counted 100 11/21/21 19:36 Seg Neutrophils % 86.2 % (40.0-70.0) H 12/21/21 09:17 Seg Neuts % (Manual) 79.0 % (40.0-70.0) H 11/21/21 19:36 Lymphocytes % (Manual) 10.0 % (13.4-35.0) L 11/21/21 19:36 Monocytes % (Manual) 8.0 % (0.0-7.3) H 11/21/21 19:36 Basophils % (Manual) 3.0 % (0.0-1.8) H 11/21/21 19:36 Nucleated RBC % Not Reportable 11/21/21 19:36 Seg Neutrophils # 10.1 K/mm3 (1.8-7.7) H 12/21/21 09:17 Seg Neutrophils # Man 5.3 K/mm3 (1.8-7.7) 11/21/21 19:36 Band Neutrophils # 0.0 K/mm3 11/21/21 19:36 Lymphocytes # (Manual) 0.7 K/mm3 (1.2-5.4) L 11/21/21 19:36 Abs React Lymphs (Man) 0.0 K/mm3 11/21/21 19:36 Monocytes # (Manual) 0.5 K/mm3 (0.0-0.8) 11/21/21 19:36 Eosinophils # (Manual) 0.0 K/mm3 (0.0-0.4) 11/21/21 19:36 Basophils # (Manual) 0.2 K/mm3 (0.0-0.1) H 11/21/21 19:36 Metamyelocytes # 0.0 K/mm3 11/21/21 19:36 Myelocytes # 0.0 K/mm3 11/21/21 19:36 Promyelocytes # 0.0 K/mm3 11/21/21 19:36 Blast Cells # 0.0 K/mm3 11/21/21 19:36 WBC Morphology Not Reportable 11/21/21 19:36 Hypersegmented Neuts Not Reportable 11/21/21 19:36 Hyposegmented Neuts Not Reportable 11/21/21 19:36 Hypogranular Neuts Not Reportable 11/21/21 19:36 Smudge Cells Not Reportable 11/21/21 19:36 Toxic Granulation Not Reportable 11/21/21 19:36 Toxic Vacuolation Not Reportable 11/21/21 19:36 Dohle Bodies Not Reportable 11/21/21 19:36 Pelger-Huet Anomaly Not Reportable 11/21/21 19:36 Luan Rods Not Reportable 11/21/21 19:36 Platelet Estimate Consistent w auto 11/21/21 19:36 Clumped Platelets Not Reportable 11/21/21 19:36 Plt Clumps, EDTA Not Reportable 11/21/21 19:36 Large Platelets Not Reportable 11/21/21 19:36 Giant Platelets Not Reportable 11/21/21 19:36 Platelet Satelliting Not Reportable 11/21/21 19:36 Plt Morphology Comment Not Reportable 11/21/21 19:36 RBC Morphology Normal 11/21/21 19:36 Dimorphic RBCs Not Reportable 11/21/21 19:36 Polychromasia Not Reportable 11/21/21 19:36 Hypochromasia Not Reportable 11/21/21 19:36 Poikilocytosis Not Reportable 11/21/21 19:36 Anisocytosis Not Reportable 11/21/21 19:36 Microcytosis Not Reportable 11/21/21 19:36 Macrocytosis Not Reportable 11/21/21 19:36 Spherocytes Not Reportable 11/21/21 19:36 Pappenheimer Bodies Not Reportable 11/21/21 19:36 Sickle Cells Not Reportable 11/21/21 19:36 Target Cells Not Reportable 11/21/21 19:36 Tear Drop Cells Not Reportable 11/21/21 19:36 Ovalocytes Not Reportable 11/21/21 19:36 Helmet Cells Not Reportable 11/21/21 19:36 Christie-Letcher Bodies Not Reportable 11/21/21 19:36 Salome Rings Not Reportable 11/21/21 19:36 Star Cells Not Reportable 11/21/21 19:36 Bite Cells Not Reportable 11/21/21 19:36 Crenated Cell Not Reportable 11/21/21 19:36 Elliptocytes Not Reportable 11/21/21 19:36 Acanthocytes (Spur) Not Reportable 11/21/21 19:36 Rouleaux Not Reportable 11/21/21 19:36 Hemoglobin C Crystals Not Reportable 11/21/21 19:36 Schistocytes Not Reportable 11/21/21 19:36 Malaria parasites Not Reportable 11/21/21 19:36 Kalia Bodies Not Reportable 11/21/21 19:36 Hem Pathologist Commnt No 11/21/21 19:36 D-Dimer 1279.46 ng/mlDDU (0-234) H 11/26/21 16:44 ABG pH 7.379 pH Units (7.350-7.450) 12/13/21 00:30 ABG pCO2 42.6 mm Hg 12/13/21 00:30 ABG pO2 125.3 mm Hg (80.0-90.0) H 12/13/21 00:30 ABG HCO3 24.6 mmol/L (20.0-26.0) 12/13/21 00:30 ABG O2 Saturation 98.4 % (95.0-99.0) 12/13/21 00:30 ABG O2 Content 14.3 (0.0-44) 12/13/21 00:30 ABG Base Excess -0.6 mmol/L (-2.0-3.0) 12/13/21 00:30 ABG Hemoglobin 10.4 gm/dl (14.0-18.0) L 12/13/21 00:30 ABG Carboxyhemoglobin 1.8 % (0.0-5.0) 12/13/21 00:30 ABG Methemoglobin 0.5 % (0.0-1.5) 12/13/21 00:30 Oxyhemoglobin 96.0 % (95.0-99.0) 12/13/21 00:30 FiO2 36 % 12/13/21 00:30 Sodium 146 mmol/L (137-145) H 12/21/21 09:17 Potassium 3.5 mmol/L (3.6-5.0) L 12/21/21 09:17 Chloride 109.5 mmol/L (98-107) H 12/21/21 09:17 Carbon Dioxide 25 mmol/L (22-30) 12/21/21 09:17 Anion Gap 15 mmol/L 12/21/21 09:17 BUN 23 mg/dL (9-20) H 12/21/21 09:17 Creatinine 1.5 mg/dL (0.8-1.3) H 12/21/21 09:17 Estimated GFR 54 ml/min 12/21/21 09:17 BUN/Creatinine Ratio 15 % 12/21/21 09:17 Glucose 183 mg/dL (75-100) H 12/21/21 09:17 POC Glucose 201 mg/dL (70-105) H 12/21/21 11:28 Hemoglobin A1c 7.9 % (4-6) H 12/16/21 15:02 Osmolality 316 Mosm/kg 11/27/21 Unknown Uric Acid 9.8 mg/dL (3.5-7.6) H 11/27/21 Unknown Calcium 8.6 mg/dL (8.4-10.2) 12/21/21 09:17 Phosphorus 1.90 mg/dL (2.5-4.5) L 12/03/21 04:00 Magnesium 2.30 mg/dL (1.7-2.3) 12/07/21 05:36 Total Bilirubin 0.70 mg/dL (0.1-1.2) 12/21/21 09:17 AST 13 units/L (5-40) 12/21/21 09:17 ALT 13 units/L (7-56) 12/21/21 09:17 Alkaline Phosphatase 112 units/L (35-129) 12/21/21 09:17 Ammonia 12.0 umol/L (25-60) L 11/28/21 12:59 C-Reactive Protein 13.00 mg/dL (0.00-1.30) H 11/27/21 05:17 Total Protein 4.9 g/dL (6.3-8.2) L 12/21/21 09:17 Albumin 2.7 g/dL (3.9-5) L 12/21/21 09:17 Albumin/Globulin Ratio 1.2 % 12/21/21 09:17 Procalcitonin 3.10 ng/mL (<0.15) 11/26/21 08:21 TSH 4.800 mlU/mL (0.270-4.200) H 11/21/21 19:37 Urine Color Kimberli (Yellow) 11/27/21 Unknown Urine Turbidity Slightly-cloudy (Clear) 11/27/21 Unknown Urine pH 5.0 (5.0-7.0) 11/27/21 Unknown Ur Specific [place] 1.013 (1.003-1.030) 11/27/21 Unknown Urine Protein <15 mg/dl mg/dL (Negative) 11/27/21 Unknown Urine Glucose (UA) 50 mg/dL (Negative) 11/27/21 Unknown Urine Ketones Tr mg/dL (Negative) 11/27/21 Unknown Urine Blood Neg (Negative) 11/27/21 Unknown Urine Nitrite Neg (Negative) 11/27/21 Unknown Urine Bilirubin Neg (Negative) 11/27/21 Unknown Urine Urobilinogen < 2.0 mg/dL (<2.0) 11/27/21 Unknown Ur Leukocyte Esterase Neg (Negative) 11/27/21 Unknown Urine WBC (Auto) 13.0 /HPF (0.0-6.0) H 11/27/21 Unknown Urine RBC (Auto) 2.0 /HPF (0.0-6.0) 11/27/21 Unknown U Epithel Cells (Auto) 1.0 /HPF (0-13.0) 11/27/21 Unknown Urine Bacteria (Auto) 1+ /HPF (Negative) 11/27/21 Unknown Urine Mucus Few /HPF 11/27/21 Unknown Urine Yeast (Budding) 2+ /HPF 11/27/21 Unknown Urine Creatinine 80.9 mg/dL (0.1-20.0) H 11/27/21 Unknown Urine Sodium 36 mmol/L 11/27/21 Unknown Urine Total Protein 43 mg/dL (5-11.8) H 11/27/21 Unknown Coronavirus (PCR) Positive (Negative) A 12/17/21 08:00 Fritz/IV: Voiding Method Incontinent Active Medications - Current Medications Current Medications: Generic Name Dose Route Start Last Admin Trade Name Freq PRN Reason Stop Dose Admin Acetaminophen 650 mg 11/22/21 05:48 Acetaminophen 325 Mg Tab PO Q4H PRN Pain MILD(1-3)/Fever >100.5/BRODY Albuterol 2.5 mg 11/25/21 12:00 Albuterol 2.5 Mg/3 Ml Nebu IH Q4HRT PRN Shortness Of Breath Arformoterol Tartrate 15 mcg 12/21/21 09:45 Arformoterol 15 Mcg/2 Ml Nebu IH Q12HRT NANDINI Budesonide 0.25 mg 12/21/21 09:45 Budesonide 0.25 Mg/2 Ml Nebu IH Q12HRT NANDINI Dexamethasone 6 mg 12/21/21 11:00 12/21/21 12:26 Dexamethasone 4 Mg/Ml Vial IV 6 mg DAILY NANDINI Administration Dextrose 0 ml 12/13/21 00:12 12/16/21 23:44 Dextrose 10% *Hypoglycemia IV 250 ml PRN PRN Administration Hypoglycemia Docusate Sodium 100 mg 12/13/21 22:00 12/21/21 14:06 Docusate Sodium 100 Mg/10 Ml Oral Liqd FEEDTUBE Not Given BID NANDINI Haloperidol Lactate 5 mg 12/07/21 15:34 12/21/21 00:36 Haloperidol Lactate 5 Mg/1 Ml Inj IM 5 mg Q6H PRN Administration Agitation Potassium Chloride 10 meq/ 1,005 mls @ 75 mls/hr 12/19/21 17:00 12/21/21 15:47 Sodium Chloride IV 75 mls/hr DIRECT NANDINI Administration Ondansetron HCl 4 mg 11/22/21 05:48 12/03/21 21:38 Ondansetron 4 Mg/2 Ml Inj IV 4 mg Q8H PRN Administration Nausea And Vomiting Sodium Chloride 10 ml 11/22/21 10:00 12/21/21 10:00 Sodium Chloride 0.9% 10 Ml Flush Syringe IV 10 ml BID NANDINI Administration Sodium Chloride 10 ml 12/15/21 14:19 Sodium Chloride 0.9% 50 Ml Ivpb IV PRN PRN FLUSH Nutrition/Malnutrition Assess - Dietary Evaluation Nutrition/Malnutrition Findings: Nutrition Notes Start: 11/22/21 14:16 Freq: Status: Active Protocol: Document 12/16/21 09:48 NICKO (Rec: 12/16/21 10:05 NICKO [id number]) Nutrition Notes Initial or Follow up Reassessment Current Diagnosis Acute Kidney Injury,Coronary Artery Disease,Hypertension, Respiratory Failure Other Pertinent Diagnosis COVID-19, Pneumonia, UTI, Acute encephalopathy, Cardiomyopathy, HFrEF. Current Diet TF-Promote @ 57 ml/hr (since D 12/11). Labs/Tests 12/15: Na 147, Cl 111.3, BUN 22, Glu 214. Pertinent Medications 12/15: Nutritionally unremarkable. Height 5 ft 11 in Weight 68.6 kg [place] Body Weight (kg) 78.18 BMI 21.1 Weight change and time frame No body weight change reported . Weight Status Underweight Subjective/Other Information RD consult for routine F/U on TF tolerance. TF well tolerated according to RN notes. Pt pending SNF placement for discharge. Pt possibly getting PEG, after discussing it with spouse. Percent of energy/protein needs met: Prescribed TF-Promote @ 57 ml/ hr provides for energy/protein needs (1,378 Kcal/86 g) during LOS, 75% Kcal; 100% AA. Burn Absent Trauma Absent GI Symptoms None Food Allergy No Current % PO Other Minimum of two criteria No #3 Nutrition Diagnosis Inadequate oral intake Diagnosis Progress(for reassessment Continues documentation) Is patient on ventilator? No Is Patient Ambulatory and/or Out of Bed Yes REE-([facility]-ambulatory/OOB) [ 1837.069 [id number]] Calculation Used for Recommendations 70-80% of EEN. Additional Notes 15-20 Kcal/Kg ABW. Protein: 1.2-2 g/Kg; 83-138 g/ day. Fluids: 1 ml/Kcal, or as per MD. Nutrition Intervention Nutrition Support: Continue Promote @ 57 ml/hr. Flush 110 ml water Q 4 hr, or as per MD. Kcal 1,378 Protein (gm) 86 Carbohydrates (gm) 179 Fat (gm) 36 Fluid (mL) 1,156 Fiber (gm) 0 % RDI: 75% Kcal; 100% AA. Goal #1 Provide at least 75% of energy /protein needs through Enteral Feeding during LOS. Follow-Up By: 12/23/21 Additional Comments Continue monitoring TF tolerance and BM.
[2021-12-21] MEDS: ARFORMOTEROL 15 MCG/2 ML NEBU IH SCH ×2 (17:08→20:55)
[2021-12-21] MEDS: BUDESONIDE 0.25 MG/2 ML NEBU IH SCH ×2 (17:08→20:55)
[2021-12-22] MEDS: BUDESONIDE 0.25 MG/2 ML NEBU IH SCH ×2 (07:44→20:52)
[2021-12-22] MEDS: ARFORMOTEROL 15 MCG/2 ML NEBU IH SCH ×2 (07:44→20:52)
--- NOTE | 2021-12-22 09:51 | Progress Note ---
Subjective Date of service: 12/22/21 Principal diagnosis: Acute encephalopathy, Acute resp failure, Covid PNA, CMP, chronic HFrEF Interval history: mpression * Nonoliguric acute kidney injury secondary to prerenal azotemia (FeNa 0.5%) --Baseline SCr 1.3mg/dL * Acute hypoxic respiratory failure secondary to COVID 19 PNA * Severe COVID-19 pneumonia * Hypernatremia * Hypokalemia * Acute encephalopathy * Cardiomyopathy - EF 35% * Anemia * Urinary tract infection - Klebsiella pneumonia * Mild left hydronephrosis Recommendations * Renal function now at baseline * Na is elevated today, continue d1/25w and add kcl * follow up mag levels and replete prn * pulm note reviewed, avoid over diuresis with hypernatremia * Continue to hold MIREYA inhibitor/ARB at this time * Encourage free water intake * Management of COVID-19 PNA per ID and primary team * Abx per ID * Maintain MAP >65 * Avoid potential nephrotoxins * Monitor lytes, fluid balance closely * Strict I/O Subjective Principal diagnosis: Acute encephalopathy Interval history: Patient has no complaints. No acute events overnight Objective - General Appearance exam deferred, primary team exam noted Objective - Vital Signs Vital signs: Vital Signs - 12hr 12/22/21 12/22/21 12/22/21 02:58 04:16 04:17 Temperature 97.3 F L Pulse Rate 82 Respiratory 18 Rate Blood Pressure 127/72 O2 Sat by Pulse 99 96 99 Oximetry - Lab 12/21/21 09:17 12/21/21 09:17 Most recent lab results ABG pH 7.379 pH Units (7.350-7.450) 12/13/21 00:30 ABG pCO2 42.6 mm Hg 12/13/21 00:30 ABG pO2 125.3 mm Hg (80.0-90.0) H 12/13/21 00:30 ABG HCO3 24.6 mmol/L (20.0-26.0) 12/13/21 00:30 ABG O2 Saturation 98.4 % (95.0-99.0) 12/13/21 00:30 Calcium 8.6 mg/dL (8.4-10.2) 12/21/21 09:17 Phosphorus 1.90 mg/dL (2.5-4.5) L 12/03/21 04:00 Magnesium 2.30 mg/dL (1.7-2.3) 12/07/21 05:36 Urine Creatinine 80.9 mg/dL (0.1-20.0) H 11/27/21 Unknown Urine Sodium 36 mmol/L 11/27/21 Unknown Urine Total Protein 43 mg/dL (5-11.8) H 11/27/21 Unknown Medications & Allergies - Medications Allergies/Adverse Reactions: Allergies No Known Allergies Allergy (Verified 11/22/21 05:55) Home Medications: Home Medications Medication Instructions Recorded Confirmed Last Taken Type Furosemide [Lasix TAB] 80 mg PO TID 11/24/21 11/24/21 Unknown History Gabapentin [Neurontin] 300 mg PO BID 11/24/21 11/27/21 11/19/21 09:12 History 300 mg Sacubitril/Valsartan [Entresto 1 tab PO BID 11/24/21 11/27/21 11/19/21 09:12 History 49-51 mg] 1 tab Spironolactone [Aldactone] 25 mg PO QDAY 11/24/21 11/27/21 11/19/21 09:12 His tory 25 mg Tamsulosin [Flomax] 0.4 mg PO QDAY 11/24/21 11/27/21 11/18/21 22:02 History 0.4 mg carvediloL [Coreg] 6.25 mg PO BID 11/24/21 11/27/21 11/19/21 09:12 History 6.25mg AtorvaSTATin [Lipitor] 40 mg PO QHS 11/27/21 11/27/21 11/19/21 09:12 History 40 mg Insulin Glargine,Hum.rec.anlog 12 unit SQ QHS 11/27/21 11/27/21 11/18/21 22:02 History [Lantus Solostar] 12 units Insulin Lispro [Admelog] 1 - 12 unit SQ TIDAC 11/27/21 11/27/21 11/19/21 08:32 History 6 units Insulin Lispro [Admelog] 4 unit SQ TID 11/27/21 11/27/21 11/19/21 08:33 History 4 units oxyCODONE /ACETAMINOPHEN [Percocet 1 tab PO Q6HR PRN 11/27/21 11/27/21 11/19/21 03:57 History 5/325] 1 tab Active Medications: Generic Name Dose Route Start Last Admin Trade Name Freq PRN Reason Stop Dose Admin Acetaminophen 650 mg 11/22/21 05:48 Acetaminophen 325 Mg Tab PO Q4H PRN Pain MILD(1-3)/Fever >100.5/BRODY Albuterol 2.5 mg 11/25/21 12:00 Albuterol 2.5 Mg/3 Ml Nebu IH Q4HRT PRN Shortness Of Breath Arformoterol Tartrate 15 mcg 12/21/21 09:45 12/22/21 07:44 Arformoterol 15 Mcg/2 Ml Nebu IH 15 mcg Q12HRT NANDINI Administration Budesonide 0.25 mg 12/21/21 09:45 12/22/21 07:44 Budesonide 0.25 Mg/2 Ml Nebu IH 0.25 mg Q12HRT NANDINI Administration Dexamethasone 6 mg 12/21/21 11:00 12/21/21 12:26 Dexamethasone 4 Mg/Ml Vial IV 6 mg DAILY NANDINI Administration Dextrose 0 ml 12/13/21 00:12 12/16/21 23:44 Dextrose 10% *Hypoglycemia IV 250 ml PRN PRN Administration Hypoglycemia Docusate Sodium 100 mg 12/13/21 22:00 12/21/21 21:21 Docusate Sodium 100 Mg/10 Ml Oral Liqd FEEDTUBE 100 mg BID NANDINI Administration Haloperidol Lactate 5 mg 12/07/21 15:34 12/21/21 00:36 Haloperidol Lactate 5 Mg/1 Ml Inj IM 5 mg Q6H PRN Administration Agitation Potassium Chloride/Dextrose/Sod Cl 20 meq in 1,000 mls @ 75 mls/hr 12/22/21 10:00 D5w/0.45% Nacl/Kcl 20 Meq IV DIRECT NANDINI Ondansetron HCl 4 mg 11/22/21 05:48 12/03/21 21:38 Ondansetron 4 Mg/2 Ml Inj IV 4 mg Q8H PRN Administration Nausea And Vomiting Sodium Chloride 10 ml 11/22/21 10:00 12/21/21 21:21 Sodium Chloride 0.9% 10 Ml Flush Syringe IV 10 ml BID NANDINI Administration Sodium Chloride 10 ml 12/15/21 14:19 Sodium Chloride 0.9% 50 Ml Ivpb IV PRN PRN FLUSH
[2021-12-22] MEDS: dexAMETHasone 4 MG/ML VIAL IV SCH (12:55)
[2021-12-22] MEDS: DOCUSATE SODIUM 100 MG/10 ML ORAL LIQD FEEDTUBE SCH ×2 (12:55→21:38)
[2021-12-22] MEDS: D5W/0.45% NACL/KCL 20 MEQ 20 MEQ/1,000 ML BAG IV SCH (20:09)
[2021-12-22] MEDS: SODIUM CHLORIDE 0.9% 50 ML IVPB IV PRN (21:38)
--- NOTE | 2021-12-23 00:14 | Progress Note ---
Assessment and Plan - Patient Problems (1) Acute metabolic encephalopathy Current Visit: Yes Status: Acute Plan to address problem: Patient more alert today. Says that he can walk (2) Diabetes Current Visit: Yes Status: Acute Plan to address problem: Blood sugar coverage Check hemoglobin A1c (3) High blood pressure Current Visit: Yes Status: Acute Plan to address problem: Hydralazine 10 mg IV every 6 hours as needed. We will monitor the blood pressure closely (4) ROSANA (acute kidney injury) Current Visit: Yes Status: Acute Plan to address problem: Improved (5) Hypokalemia Current Visit: Yes Status: Acute Plan to address problem: Supplemented (6) Urinary tract infection Current Visit: Yes Status: Acute Plan to address problem: Rocephin 2 g IV daily. We do the blood culture urine culture. (7) DVT prophylaxis Current Visit: Yes Status: Acute Plan to address problem: Heparin 5000 units subcu every 8 hours for DVT prophylaxis. Pepcid 20 mg p.o. twice daily for GI prophylaxis. Patient is a full code 8) severe debility Physical therapy and Occupational Therapy tomorrow Advanced care planning Subjective Date of service: 12/22/21 Principal diagnosis: Acute encephalopathy, Acute resp failure, Covid PNA, CMP, chronic HFrEF Interval history: 81-year-old male with past medical history of hypertension and diabetes was brought to the emergency room in by family due to altered mental status/confusion. Patient discharged from [facility] days ago and has been confused since then. The did not know why he was in the hospital to begin with. Allegedly, before he went to the hospital he was able to have a cogent conversation and was ambulatory. Now, apparently he cannot support his own weight. He is confused and cannot carry a cogent conversation. Labs revealed several mild abnormalities including ROSANA with mildly elevated creatinine and hypokalemia with potassium of 3.2. There is no leukocytosis or anemia. Urinalysis shows UTI. Initial CT scan of the head shows no acute intracranial abnormality Objective - Constitutional Vitals: Vital Signs - 12hr 12/22/21 12/22/21 12/22/21 14:00 16:29 17:29 Temperature 97.4 F L Pulse Rate 83 Respiratory 24 Rate Blood Pressure 122/70 O2 Sat by Pulse 98 93 97 Oximetry 12/22/21 12/22/21 20:00 22:25 Temperature 97.8 F Pulse Rate 80 Respiratory 24 Rate Blood Pressure 127/69 O2 Sat by Pulse 98 94 Oximetry General appearance: Present: no acute distress, well-nourished - EENT Eyes: PERRL, EOM intact ENT: hearing intact, clear oral mucosa Ears: bilateral: normal - Neck Neck: supple, normal ROM - Respiratory Respiratory effort: normal Respiratory: bilateral: CTA - Breasts Breasts: normal - Cardiovascular Rhythm: regular Heart Sounds: Present: S1 & S2. Absent: gallop, rub Extremities: pulses intact, No edema, normal color, Full ROM - Gastrointestinal General gastrointestinal: Present: soft, non-tender, non-distended, normal bowel sounds - Genitourinary Male genitourinary: normal - Integumentary Integumentary: clear, warm, dry - Musculoskeletal Musculoskeletal: 1, strength equal bilaterally - Neurologic Neurologic: moves all extremities - Psychiatric Psychiatric: memory intact, appropriate mood/affect, intact judgment & insight - Labs CBC & Chem 7: 12/21/21 09:17 12/23/21 09:45 Labs: Abnormal lab results 12/22/21 12/22/21 12/22/21 Range/Units 12:20 12:31 19:47 POC Glucose 194 H 264 H (70-105) mg/dL SARS-CoV-2 (PCR) Positive A (Negative) 12/22/21 Range/Units 22:23 POC Glucose 247 H (70-105) mg/dL SARS-CoV-2 (PCR) (Negative)
[2021-12-23] MEDS: D5W/0.45% NACL/KCL 20 MEQ 20 MEQ/1,000 ML BAG IV SCH ×2 (06:31→18:13)
[2021-12-23] MEDS: ARFORMOTEROL 15 MCG/2 ML NEBU IH SCH ×2 (07:28→20:35)
[2021-12-23] MEDS: BUDESONIDE 0.25 MG/2 ML NEBU IH SCH ×2 (07:28→20:35)
--- NOTE | 2021-12-23 08:38 | Progress Note ---
Subjective Date of service: 12/23/21 Principal diagnosis: Acute encephalopathy, Acute resp failure, Covid PNA, CMP, chronic HFrEF Interval history: mpression * Nonoliguric acute kidney injury secondary to prerenal azotemia (FeNa 0.5%) --Baseline SCr 1.3mg/dL * Acute hypoxic respiratory failure secondary to COVID 19 PNA * Severe COVID-19 pneumonia * Hypernatremia * Hypokalemia * Acute encephalopathy * Cardiomyopathy - EF 35% * Anemia * Urinary tract infection - Klebsiella pneumonia * Mild left hydronephrosis Recommendations * Renal function now at baseline * Na is elevated today, continue d1/25w and add kcl * follow up mag levels and replete prn * pulm note reviewed, avoid over diuresis with hypernatremia * Continue to hold MIREYA inhibitor/ARB at this time * Encourage free water intake * Management of COVID-19 PNA per ID and primary team * Abx per ID * Maintain MAP >65 * Avoid potential nephrotoxins * Monitor lytes, fluid balance closely * Strict I/O * will follow labs peripherally Subjective Principal diagnosis: Acute encephalopathy Interval history: Patient has no complaints. No acute events overnight Objective - General Appearance exam deferred, primary team exam noted Objective - Vital Signs Vital signs: Vital Signs - 12hr 12/22/21 12/22/21 12/23/21 22:00 22:25 02:00 Temperature 97.8 F Pulse Rate 80 Respiratory 24 Rate Blood Pressure 127/69 O2 Sat by Pulse 94 94 98 Oximetry 12/23/21 05:23 Temperature 97.5 F L Pulse Rate 72 Respiratory 20 Rate Blood Pressure 128/69 O2 Sat by Pulse 96 Oximetry - Lab 12/21/21 09:17 12/21/21 09:17 Most recent lab results ABG pH 7.379 pH Units (7.350-7.450) 12/13/21 00:30 ABG pCO2 42.6 mm Hg 12/13/21 00:30 ABG pO2 125.3 mm Hg (80.0-90.0) H 12/13/21 00:30 ABG HCO3 24.6 mmol/L (20.0-26.0) 12/13/21 00:30 ABG O2 Saturation 98.4 % (95.0-99.0) 12/13/21 00:30 Calcium 8.6 mg/dL (8.4-10.2) 12/21/21 09:17 Phosphorus 1.90 mg/dL (2.5-4.5) L 12/03/21 04:00 Magnesium 2.30 mg/dL (1.7-2.3) 12/07/21 05:36 Urine Creatinine 80.9 mg/dL (0.1-20.0) H 11/27/21 Unknown Urine Sodium 36 mmol/L 11/27/21 Unknown Urine Total Protein 43 mg/dL (5-11.8) H 11/27/21 Unknown Medications & Allergies - Medications Allergies/Adverse Reactions: Allergies No Known Allergies Allergy (Verified 11/22/21 05:55) Home Medications: Home Medications Medication Instructions Recorded Confirmed Last Taken Type Furosemide [Lasix TAB] 80 mg PO TID 11/24/21 11/24/21 Unknown History Gabapentin [Neurontin] 300 mg PO BID 11/24/21 11/27/21 11/19/21 09:12 History 300 mg Sacubitril/Valsartan [Entresto 1 tab PO BID 11/24/21 11/27/21 11/19/21 09:12 History 49-51 mg] 1 tab Spironolactone [Aldactone] 25 mg PO QDAY 11/24/21 11/27/21 11/19/21 09:12 History 25 mg Tamsulosin [Flomax] 0.4 mg PO QDAY 11/24/21 11/27/21 11/18/21 22:02 History 0.4 mg carvediloL [Coreg] 6.25 mg PO BID 11/24/21 11/27/21 11/19/21 09:12 History 6.25mg AtorvaSTATin [Lipitor] 40 mg PO QHS 11/27/21 11/27/21 11/19/21 09:12 History 40 mg Insulin Glargine,Hum.rec.anlog 12 unit SQ QHS 11/27/21 11/27/21 11/18/21 22:02 History [Lantus Solostar] 12 units Insulin Lispro [Admelog] 1 - 12 unit SQ TIDAC 11/27/21 11/27/21 11/19/21 08:32 History 6 units Insulin Lispro [Admelog] 4 unit SQ TID 11/27/21 11/27/21 11/19/21 08:33 History 4 units oxyCODONE /ACETAMINOPHEN [Percocet 1 tab PO Q6HR PRN 11/27/21 11/27/21 11/19/21 03:57 History 5/325] 1 tab Active Medications: Generic Name Dose Route Start Last Admin Trade Name Freq PRN Reason Stop Dose Admin Albuterol 2.5 mg 11/25/21 12:00 Albuterol 2.5 Mg/3 Ml Nebu IH Q4HRT PRN Shortness Of Breath Arformoterol Tartrate 15 mcg 12/21/21 09:45 12/23/21 07:28 Arformoterol 15 Mcg/2 Ml Nebu IH Not Given Q12HRT NANDINI Budesonide 0.25 mg 12/21/21 09:45 12/23/21 07:28 Budesonide 0.25 Mg/2 Ml Nebu IH Not Given Q12HRT NANDINI Dexamethasone 6 mg 12/21/21 11:00 12/22/21 12:55 Dexamethasone 4 Mg/Ml Vial IV 6 mg DAILY NANDINI Administration Dextrose 0 ml 12/13/21 00:12 12/16/21 23:44 Dextrose 10% *Hypoglycemia IV 250 ml PRN PRN Administration Hypoglycemia Docusate Sodium 100 mg 12/13/21 22:00 12/22/21 21:38 Docusate Sodium 100 Mg/10 Ml Oral Liqd FEEDTUBE 100 mg BID NANDINI Administration Haloperidol Lactate 5 mg 12/07/21 15:34 12/21/21 00:36 Haloperidol Lactate 5 Mg/1 Ml Inj IM 5 mg Q6H PRN Administration Agitation Potassium Chloride/Dextrose/Sod Cl 20 meq in 1,000 mls @ 75 mls/hr 12/22/21 10:00 12/23/21 06:31 D5w/0.45% Nacl/Kcl 20 Meq IV 75 mls/hr DIRECT NANDINI Administration Sodium Chloride 10 ml 11/22/21 10:00 12/22/21 21:39 Sodium Chloride 0.9% 10 Ml Flush Syringe IV Not Given BID NANDINI Sodium Chloride 10 ml 12/15/21 14:19 12/22/21 21:38 Sodium Chloride 0.9% 50 Ml Ivpb IV 10 ml PRN PRN Administration FLUSH
[2021-12-23 10:55] LABS: BUN/Creatinine Ratio 20; Blood Urea Nitrogen 26 mg/dL (9-20); Calcium 8.8 mg/dL (8.4-10.2); Hemolysis Index 24
[2021-12-23] MEDS: DOCUSATE SODIUM 100 MG/10 ML ORAL LIQD FEEDTUBE SCH ×2 (11:10→22:02)
[2021-12-23] MEDS: dexAMETHasone 4 MG/ML VIAL IV SCH (11:21)
[2021-12-23] MEDS: SODIUM CHLORIDE 0.9% 50 ML IVPB IV PRN (22:02)
--- NOTE | 2021-12-24 06:38 | Progress Note ---
Assessment and Plan 81-year-old man past medical history hypertension, diabetes presenting the hospital due to confusion. He had been discharged from [facility] 2 days prior to admission and confusion had not improved since then. Family was unaware why he was in the hospital previously. Patient is cachectic and lying in bed. Making minimal conversation. Severe COVID-19 pneumonia: Patient presented with a week of symptoms, chest x- ray with diffuse bilateral infiltrates. Inflammatory markers elevated with Acute hypoxemic respiratory failure: Patient still on high flow nasal cannula oxygen on 20 L Patient will be going to home hospice on 20 L tomorrow See case management notes. #Acute metabolic encephalopathy -CT head negative for acute findings; MRI unable to be performed secondary to agitation -Etiology likely multifactorial including underlying dementia, Covid encephalopathy, dehydration and hyponatremia -Delirium precautions -Mental status much improved on 12/18, alert and verbal but still confused -Patient remains restless requiring wrist restraints to prevent him from pulling IV lines and NG tube. -On Haldol, behavioral health consulted. #Poor oral intake/dehydration -patient noted to have poor oral intake while sleepy -ST eval ordered; recommended n.p.o. and tube feeds -dobhoff placed for TF in meantime -GI attempted but unable to place PEG tube 12/17 -IR consulted but CT showed retrocardiac stomach, not possible to place PEG tube, recommends surgery to perform J-tube placement Patient much alert on 12/18, reportedly passed bedside swallow evaluation by RN, trial with pured diet. - ST reevaluated and recommended trial with pured diet on 12/19 -RN reports that he is tolerating pured diet, tube feeds currently on hold. Continue aspiration precautions #Acute hypoxic respiratory failure-improving #COVID-19 pneumonia-stable -currently needing 2-4 L NC, -Was not candidate for remdesivir due to initial ROSANA -s/p steroids x10 days, resumed Decadron on 12/21 for wheezing, hypoxia and respiratory distress -Mild to moderate dyspnea at rest off O2 on 06/19, O2 resumed -Placed on high flow oxygen on 12/21, to be weaned. Spoke this to nursing staff. #Hypoglycemia #hx of Insulin-dependent type 2 diabetes -patient with glucose as low as 18. D10W infusion started -On tube feeds, currently on hold -RN reports that he is tolerating. Diet -Goal glucose 140-180 while inpatient #CAD #Chronic heart failure with reduced ejection fraction -TTE revealing EF of 35 to 40% #Bradycardia-improved -Cardiology following, assistance appreciated -Home beta-tee held #Hypertension -Blood pressure controlled, no meds while inpatient #ROSANA-resolved -Secondary to vasomotor nephropathy #UTI -Status post antibiotics -Urine culture shows 10-100 K Natalia species #Hypokalemia -We will continue to replete and monitor #Hypernatremia-resolving On D10W infusion, nephrology following #Severe debility -Evaluated by PT and OT, recommendation for subacute rehab at discharge #Discharge planning -PEG tube could not be placed with GI and IR. IR recommends J-tube placement by surgery. ST reevaluated and recommended trial with pured diet on 12/19 Placed on high flow O2 on 12/21, RT to wean to nasal cannula . accepted to take patient home with home hospice., Possible discharge tomorrow Discussed with the nursing staff, and rn case manager See case management notes Subjective Date of service: 12/23/21 Principal diagnosis: Acute encephalopathy, Acute resp failure, Covid PNA, CMP, chronic HFrEF Interval history: 81-year-old male with past medical history of hypertension and diabetes was brought to the emergency room in by family due to altered mental sta tus/confusion. Patient discharged from [facility] 2 days ago and has been confused since then. The did not know why he was in the hospital to begin with. Allegedly, before he went to the hospital he was able to have a cogent conversation and was ambulatory. Now, apparently he cannot support his own weight. He is confused and cannot carry a cogent conversation. Labs revealed several mild abnormalities including ROSANA with mildly elevated creatinine and hypokalemia with potassium of 3.2. There is no leukocytosis or anemia. Urinalysis shows UTI. Initial CT scan of the head shows no acute intracranial abnormality 12/23/2021 Patient with Covid pneumonia Failure to thrive Patient on 20 L nasal cannula oxygen Patient to be discharged tomorrow to home hospice. CM spoke to Melani who states they can take patient on 20L w/ FiO2 35%. Plan for Danita to set up transport tomorrow. CM will call in AM to coordinate time. Objective - Constitutional Vitals: Vital Signs - 12hr 12/23/21 12/23/21 12/24/21 20:35 22:00 02:00 Temperature Pulse Rate Respiratory Rate Blood Pressure Blood Pressure [Left] O2 Sat by Pulse 96 100 100 Oximetry 12/24/21 12/24/21 12/24/21 02:59 04:00 04:05 Temperature 97.2 F L Pulse Rate 59 L 58 L 53 L Respiratory 25 H 24 Rate Blood Pressure 120/63 Blood Pressure 122/64 [Left] O2 Sat by Pulse 99 100 Oximetry General appearance: Present: mild distress, cachectic, disheveled - EENT Eyes: PERRL, EOM intact ENT: hearing intact, clear oral mucosa Ears: bilateral: normal - Neck Neck: supple, normal ROM - Respiratory Respiratory effort: normal Respiratory: bilateral: CTA, wheezing - Breasts Breasts: normal - Cardiovascular Heart rate: 88 Rhythm: regular Heart Sounds: Present: S1 & S2. Absent: gallop, rub Extremities: pulses intact, No edema, normal color, Full ROM - Gastrointestinal General gastrointestinal: Present: soft, non-tender, non-distended, normal bowel sounds - Genitourinary Male genitourinary: normal - Integumentary Integumentary: clear, warm, dry - Musculoskeletal Musculoskeletal: generalized weakness - Neurologic Neurologic: moves all extremities - Psychiatric Psychiatric: memory intact, depressed - Allied health notes Allied health notes reviewed: nursing, case management - Labs CBC & Chem 7: 12/21/21 09:17 12/23/21 09:45 Labs: Abnormal lab results 12/23/21 12/23/21 12/23/21 Range/Units 09:45 12:01 18:45 Sodium 148 H (137-145) mmol/L Chloride 113.1 H (98-107) mmol/L BUN 26 H (9-20) mg/dL Glucose 307 H (75-100) mg/dL POC Glucose 206 H 282 H (70-105) mg/dL 12/23/21 12/23/21 Range/Units 22:28 22:29 Sodium (137-145) mmol/L Chloride (98-107) mmol/L BUN (9-20) mg/dL Glucose (75-100) mg/dL POC Glucose 275 H 285 H (70-105) mg/dL
[2021-12-24 08:38] LABS: BUN/Creatinine Ratio 21; Blood Urea Nitrogen 25 mg/dL (9-20); Calcium 8.8 mg/dL (8.4-10.2); Hemolysis Index 0
--- NOTE | 2021-12-24 09:13 | Discharge Summary ---
Providers - Providers Date of Admission: 11/24/21 13:51 Date of discharge: 12/24/21 Attending physician: BETHANY MCLEAN 11/22/21 05:48 Consult to Dietitian/Nutrition [CONS] Routine Physician Instructions: Reason For Exam: Reason for Consult: Diet education 11/25/21 07:52 Physical Therapy Evaluation and Treat [CONS] Routine Comment: Reason For Exam: Severe debility 11/26/21 01:06 Consult to Physician [CONS] Routine Comment: Consulting Provider: ИРИНА MATHEW Physician Instructions: Reason For Exam: covid 19 with hypoxia 11/26/21 16:10 Consult to Physician [CONS] Routine Comment: Consulting Provider: HETAL MONSALVE Physician Instructions: Reason For Exam: CHF 11/27/21 07:31 Consult to Physician [CONS] Routine Comment: Consulting Provider: JOSSELIN WEBSTER Physician Instructions: Reason For Exam: ROSANA 12/02/21 15:32 Consult to Physician [CONS] Routine Comment: Consulting Provider: RAYMOND FORD Physician Instructions: Reason For Exam: Acute metabolic encephalopathy 12/11/21 09:53 Consult to Dietitian/Nutrition [CONS] Routine Physician Instructions: Reason For Exam: Reason for Consult: Write/Manage Tube Feeding 12/11/21 10:58 Speech Therapy Evaluation and Treat [CONS] Routine Reason For Exam: evaluation of swallowing 12/16/21 08:24 Consult to Physician [CONS] Routine Comment: Consulting Provider: BERNABE ROA Physician Instructions: Reason For Exam: Needs PEG tube placement 12/17/21 11:53 Consult to Physician [CONS] Routine Comment: Failed endoscopic attempt for PEG Consulting Provider: OTTONIEL NASSAR Physician Instructions: Reason For Exam: PEG 12/18/21 10:33 Consult to Interventional Radiology [CONS] Urgent Consulting Provider: JUANJO ROLON Reason For Exam: Placement of PEG tube Notified:: No Comment:: GI unsuccessful to place PEG 12/18/21 14:07 Speech Therapy Evaluation and Treat [CONS] Stat Reason For Exam: swallowing Primary care physician: RADIO JOURNALIST Hospitalization Reason for admission: AMS Condition: Stable Hospital course: 81-year-old man past medical history hypertension, diabetes presenting the hospital due to confusion. He had been discharged from [facility] 2 days prior to admission and confusion had not improved since then. Family was unaware why he was in the hospital previously. Patient is cachectic and lying in bed. Making minimal conversation. Hospital course by diagnosis below: Severe COVID-19 pneumonia: Patient presented with a week of symptoms, chest x- ray with diffuse bilateral infiltrates. Inflammatory markers elevated with Acute hypoxemic respiratory failure: Patient still on high flow nasal cannula oxygen on 20 L Patient will be going to home hospice on 20 L tomorrow See case management notes. #Acute metabolic encephalopathy -CT head negative for acute findings; MRI unable to be performed secondary to agitation -Etiology likely multifactorial including underlying dementia, Covid encephalopathy, dehydration and hyponatremia -Delirium precautions -Mental status much improved on 12/18, alert and verbal but still confused -Patient remains restless requiring wrist restraints to prevent him from pulling IV lines and NG tube. -On Haldol, behavioral health consulted. #Poor oral intake/dehydration -patient noted to have poor oral intake while sleepy -ST eval ordered; recommended n.p.o. and tube feeds -dobhoff placed for TF in meantime -GI attempted but unable to place PEG tube 12/17 -IR consulted but CT showed retrocardiac stomach, not possible to place PEG tube, recommends surgery to perform J-tube placement Patient much alert on 12/18, reportedly passed bedside swallow evaluation by RN, trial with pured diet. - ST reevaluated and recommended trial with pured diet on 12/19 -RN reports that he is tolerating pured diet, tube feeds currently on hold. Continue aspiration precautions #Acute hypoxic respiratory failure-improving #COVID-19 pneumonia-stable -currently needing 2-4 L NC, -Was not candidate for remdesivir due to initial ROSANA -s/p steroids x10 days, resumed Decadron on 12/21 for wheezing, hypoxia and respiratory distress -Mild to moderate dyspnea at rest off O2 on 06/19, O2 resumed -Placed on high flow oxygen on 12/21, to be weaned. Spoke this to nursing staff. #Hypoglycemia #hx of Insulin-dependent type 2 diabetes -patient with glucose as low as 18. D10W infusion started -On tube feeds, currently on hold -RN reports that he is tolerating. Diet -Goal glucose 140-180 while inpatient #CAD #Chronic heart failure with reduced ejection fraction -TTE revealing EF of 35 to 40% #Bradycardia-improved -Cardiology following, assistance appreciated -Home beta-tee held #Hypertension -Blood pressure controlled, no meds while inpatient #ROSANA-resolved -Secondary to vasomotor nephropathy #UTI -Status post antibiotics -Urine culture shows 10-100 K Natalia species #Hypokalemia -We will continue to replete and monitor #Hypernatremia-resolving On D10W infusion, nephrology following #Severe debility -Evaluated by PT and OT, recommendation for subacute rehab at discharge #Discharge planning -PEG tube could not be placed with GI and IR. IR recommends J-tube placement by surgery. ST reevaluated and recommended trial with pured diet on 12/19 Placed on high flow O2 on 12/21, RT to wean to nasal cannula . accepted to take patient home with home hospice. Discussed with the nursing staff, and skilled nursing case manager See case management notes Dedicated discharge time 35 minutes Disposition: 50 HOSPICE/HOME Final Discharge Diagnosis (Prints w/discharge instructions): COVID-19 pneumonia, toxic metabolic encephalopathy, vasomotor nephropathy/dehydration, acute hypoxic respiratory failure, diabetes mellitus type 2, coronary artery disease, chronic heart failure with reduced EF, bradycardia, hypertension, acute kidney injury, urinary tract infection, hypokalemia, hypernatremia, severe debility Core Measure Documentation - Palliative Care Palliative Care/ Comfort Measures: Hospice Care - Core Measures Any of the following diagnoses?: none Exam - Constitutional Vitals: Temp Pulse Resp BP Pulse Ox 97.2 F L 53 L 24 120/63 100 12/24/21 04:05 12/24/21 04:05 12/24/21 04:05 12/24/21 04:05 12/24/21 04:05 General appearance: Present: mild distress, well-nourished - EENT Eyes: Present: PERRL ENT: hearing intact, clear oral mucosa - Neck Neck: Present: supple, normal ROM - Respiratory Respiratory effort: normal Respiratory: bilateral: CTA - Cardiovascular Heart Sounds: Present: S1 & S2. Absent: rub, click - Extremities Extremities: pulses symmetrical, No edema Peripheral Pulses: within normal limits - Abdominal General gastrointestinal: Present: soft, non-tender, non-distended, normal bowel sounds Male genitourinary: Present: normal - Integumentary Integumentary: Present: clear, warm, dry - Musculoskeletal Musculoskeletal: gait normal, strength equal bilaterally - Psychiatric Psychiatric: appropriate mood/affect, intact judgment & insight - Neurologic Neurologic: CNII-XII intact, moves all extremities Plan Activity: advance as tolerated Weight Bearing Status: Weight Bear as Tolerated Diet: other (per restorative care technician and speech therapy) Follow up with: TISHA TAYLOR MD [Staff Physician] - 3-5 Days Prescriptions: Dexamethasone 6 mg PO DAILY #7 tab
[2021-12-24] MEDS: dexAMETHasone 4 MG/ML VIAL IV SCH (09:36)
[2021-12-24] MEDS: DOCUSATE SODIUM 100 MG/10 ML ORAL LIQD FEEDTUBE SCH (09:37)
[2021-12-24] MEDS: ARFORMOTEROL 15 MCG/2 ML NEBU IH SCH ×2 (09:43→19:43)
[2021-12-24] MEDS: BUDESONIDE 0.5 MG/2 ML NEBU IH SCH ×2 (09:43→19:43)
[2021-12-24] MEDS: BUDESONIDE 0.25 MG/2 ML NEBU IH SCH (09:44)
--- NOTE | 2021-12-24 10:31 | Progress Note ---
Subjective Date of service: 12/24/21 Principal diagnosis: Acute encephalopathy, Acute resp failure, Covid PNA, CMP, chronic HFrEF Interval history: mpression * Nonoliguric acute kidney injury secondary to prerenal azotemia (FeNa 0.5%) --Baseline SCr 1.3mg/dL * Acute hypoxic respiratory failure secondary to COVID 19 PNA * Severe COVID-19 pneumonia * Hypernatremia * Hypokalemia * Acute encephalopathy * Cardiomyopathy - EF 35% * Anemia * Urinary tract infection - Klebsiella pneumonia * Mild left hydronephrosis Recommendations * Renal function now at baseline * Na is elevated today, add d5w * follow up mag levels and replete prn * pulm note reviewed, avoid over diuresis with hypernatremia * Continue to hold MIREYA inhibitor/ARB at this time * Encourage free water intake * Management of COVID-19 PNA per ID and primary team * Abx per ID * Maintain MAP >65 * Avoid potential nephrotoxins * Monitor lytes, fluid balance closely * Strict I/O * will follow labs peripherally Subjective Principal diagnosis: Acute encephalopathy Interval history: Patient has no complaints. No acute events overnight Objective - General Appearance exam deferred, primary team exam noted Objective - Vital Signs Vital signs: Vital Signs - 12hr 12/24/21 12/24/21 12/24/21 02:00 02:59 04:00 Temperature Pulse Rate 59 L 58 L Pulse Rate [ Posterior Bilateral Throughout] Respiratory 25 H Rate Respiratory Rate [Posterior Bilateral Throughout] Blood Pressure Blood Pressure 122/64 [Left] O2 Sat by Pulse 100 99 Oximetry 12/24/21 12/24/21 12/24/21 04:05 09:45 10:00 Temperature 97.2 F L Pulse Rate 53 L Pulse Rate [ 78 Posterior Bilateral Throughout] Respiratory 24 22 Rate Respiratory 24 Rate [Posterior Bilateral Throughout] Blood Pressure 120/63 Blood Pressure [Left] O2 Sat by Pulse 100 99 98 Oximetry - Lab 12/21/21 09:17 12/24/21 08:05 Most recent lab results ABG pH 7.379 pH Units (7.350-7.450) 12/13/21 00:30 ABG pCO2 42.6 mm Hg 12/13/21 00:30 ABG pO2 125.3 mm Hg (80.0-90.0) H 12/13/21 00:30 ABG HCO3 24.6 mmol/L (20.0-26.0) 12/13/21 00:30 ABG O2 Saturation 98.4 % (95.0-99.0) 12/13/21 00:30 Calcium 8.8 mg/dL (8.4-10.2) 12/24/21 08:05 Phosphorus 1.90 mg/dL (2.5-4.5) L 12/03/21 04:00 Magnesium 2.30 mg/dL (1.7-2.3) 12/07/21 05:36 Urine Creatinine 80.9 mg/dL (0.1-20.0) H 11/27/21 Unknown Urine Sodium 36 mmol/L 11/27/21 Unknown Urine Total Protein 43 mg/dL (5-11.8) H 11/27/21 Unknown Medications & Allergies - Medications Allergies/Adverse Reactions: Allergies No Known Allergies Allergy (Verified 11/22/21 05:55) Home Medications: Home Medications Medication Instructions Recorded Confirmed Last Taken Type Furosemide [Lasix TAB] 80 mg PO TID 11/24/21 11/24/21 Unknown History Gabapentin 300 mg PO BID 11/24/21 11/27/21 11/19/21 09:12 History 300 mg Sacubitril/Valsartan [Entresto 1 tab PO BID 11/24/21 11/27/21 11/19/21 09:12 History 49-51 mg] 1 tab Spironolactone [Aldactone] 25 mg PO QDAY 11/24/21 11/27/21 11/19/21 09:12 History 25 mg Tamsulosin [Flomax] 0.4 mg PO QDAY 11/24/21 11/27/21 11/18/21 22:02 History 0.4 mg carvediloL [Coreg] 6.25 mg PO BID 11/24/21 11/27/21 11/19/21 09:12 History 6.25mg AtorvaSTATin [Lipitor] 40 mg PO QHS 11/27/21 11/27/21 11/19/21 09:12 History 40 mg Insulin Glargine,Hum.rec.anlog 12 unit SQ QHS 11/27/21 11/27/21 11/18/21 22:02 History [Lantus Solostar] 12 units Insulin Lispro [Admelog] 1 - 12 unit SQ TIDAC 11/27/21 11/27/21 11/19/21 08:32 History 6 units Insulin Lispro [Admelog] 4 unit SQ TID 11/27/21 11/27/21 11/19/21 08:33 History 4 units Dexamethasone 6 mg PO DAILY #7 tab 12/24/21 Unknown Rx Active Medications: Generic Name Dose Route Start Last Admin Trade Name Freq PRN Reason Stop Dose Admin Albuterol 2.5 mg 11/25/21 12:00 Albuterol 2.5 Mg/3 Ml Nebu IH Q4HRT PRN Shortness Of Breath Arformoterol Tartrate 15 mcg 12/21/21 09:45 12/24/21 09:43 Arformoterol 15 Mcg/2 Ml Nebu IH 15 mcg Q12HRT NANDINI Administration Budesonide 0.5 mg 12/24/21 09:45 12/24/21 09:43 Budesonide 0.5 Mg/2 Ml Nebu IH 0.5 mg Q12HRT NANDINI Administration Dexamethasone 6 mg 12/21/21 11:00 12/24/21 09:36 Dexamethasone 4 Mg/Ml Vial IV 12/30/21 10:01 6 mg DAILY NANDINI Administration Dextrose 0 ml 12/13/21 00:12 12/16/21 23:44 Dextrose 10% *Hypoglycemia IV 250 ml PRN PRN Administration Hypoglycemia Docusate Sodium 100 mg 12/13/21 22:00 12/24/21 09:37 Docusate Sodium 100 Mg/10 Ml Oral Liqd FEEDTUBE 100 mg BID NANDINI Administration Haloperidol Lactate 5 mg 12/07/21 15:34 12/21/21 00:36 Haloperidol Lactate 5 Mg/1 Ml Inj IM 5 mg Q6H PRN Administration Agitation Sodium Chloride 10 ml 11/22/21 10:00 12/24/21 10:00 Sodium Chloride 0.9% 10 Ml Flush Syringe IV 10 ml BID NANDINI Administration Sodium Chloride 10 ml 12/15/21 14:19 12/23/21 22:02 Sodium Chloride 0.9% 50 Ml Ivpb IV 10 ml PRN PRN Administration FLUSH
[2021-12-24] MEDS: INSULIN LISPRO 100 UNIT/ML SUB-Q SCH ×2 (13:20→18:34)
[2021-12-24] MEDS: DEXTROSE 5% IN WATER 1,000 ML IV SCH (16:47)
[2021-12-25] MEDS: DOCUSATE SODIUM 100 MG/10 ML ORAL LIQD FEEDTUBE SCH ×2 (00:39→10:08)
[2021-12-25] MEDS: DEXTROSE 5% IN WATER 1,000 ML IV SCH (00:48)
[2021-12-25] MEDS: INSULIN LISPRO 100 UNIT/ML SUB-Q SCH ×3 (00:48→11:16)
--- NOTE | 2021-12-25 07:37 | Progress Note ---
Assessment and Plan Assessment and plan: 81-year-old man past medical history hypertension, diabetes presenting the hospital due to confusion. He had been discharged from [facility] 2 days prior to admission and confusion had not improved since then. Family was unaware why he was in the hospital previously. Patient is cachectic and lying in bed. Making minimal conversation. Severe COVID-19 pneumonia: Patient presented with a week of symptoms, chest x- ray with diffuse bilateral infiltrates. Inflammatory markers elevated with Acute hypoxemic respiratory failure: Patient still on high flow nasal cannula oxygen on 20 L Patient will be going to home hospice on 20 L tomorrow See case management notes. #Acute metabolic encephalopathy -CT head negative for acute findings; MRI unable to be performed secondary to agitation -Etiology likely multifactorial including underlying dementia, Covid encephalopathy, dehydration and hyponatremia -Delirium precautions -Mental status much improved on 12/18, alert and verbal but still confused -Patient remains restless requiring wrist restraints to prevent him from pulling IV lines and NG tube. -On Haldol, behavioral health consulted. #Poor oral intake/dehydration -patient noted to have poor oral intake while sleepy -ST eval ordered; recommended n.p.o. and tube feeds -dobhoff placed for TF in meantime -GI attempted but unable to place PEG tube 12/17 -IR consulted but CT showed retrocardiac stomach, not possible to place PEG tube, recommends surgery to perform J-tube placement Patient much alert on 12/18, reportedly passed bedside swallow evaluation by RN, trial with pured diet. - ST reevaluated and recommended trial with pured diet on 12/19 -RN reports that he is tolerating pured diet, tube feeds currently on hold. Continue aspiration precautions #Acute hypoxic respiratory failure-improving #COVID-19 pneumonia-stable -currently needing 2-4 L NC, -Was not candidate for remdesivir due to initial ROSANA -s/p steroids x10 days, resumed Decadron on 12/21 for wheezing, hypoxia and respiratory distress -Mild to moderate dyspnea at rest off O2 on 06/19, O2 resumed -Placed on high flow oxygen on 12/21, to be weaned. Spoke this to nursing staff. #Hypoglycemia #hx of Insulin-dependent type 2 diabetes -patient with glucose as low as 18. D10W infusion started -On tube feeds, currently on hold -RN reports that he is tolerating. Diet -Goal glucose 140-180 while inpatient #CAD #Chronic heart failure with reduced ejection fraction -TTE revealing EF of 35 to 40% #Bradycardia-improved -Cardiology following, assistance appreciated -Home beta-tee held #Hypertension -Blood pressure controlled, no meds while inpatient #ROSANA-resolved -Secondary to vasomotor nephropathy #UTI -Status post antibiotics -Urine culture shows 10-100 K Natalia species #Hypokalemia -We will continue to replete and monitor #Hypernatremia-resolving On D10W infusion, nephrology following #Severe debility -Evaluated by PT and OT, recommendation for subacute rehab at discharge #Discharge planning -PEG tube could not be placed with GI and IR. IR recommends J-tube placement by surgery. ST reevaluated and recommended trial with pured diet on 12/19 Placed on high flow O2 on 12/21, RT to wean to nasal cannula . accepted to take patient home with home hospice., Possible discharge tomorrow Discussed with the nursing staff, and supportive employment case manager See case management notes History Interval history: No new issues overnight Hospitalist Physical - Constitutional Vitals: Temp Pulse Resp BP Pulse Ox 97.5 F L 66 26 H 129/75 96 12/25/21 05:50 12/25/21 05:50 12/25/21 05:50 12/25/21 05:50 12/25/21 05:50 General appearance: Present: no acute distress, well-nourished - EENT Eyes: Present: PERRL, EOM intact ENT: hearing intact, clear oral mucosa, dentition normal - Neck Neck: Present: supple, normal ROM - Respiratory Respiratory effort: normal Respiratory: bilateral: CTA - Cardiovascular Rhythm: regular Heart Sounds: Present: S1 & S2. Absent: gallop, rub - Extremities Extremities: no ischemia, No edema, Full ROM - Abdominal General gastrointestinal: soft, non-tender, non-distended, normal bowel sounds - Integumentary Integumentary: Present: clear, warm, dry - Neurologic Neurologic: CNII-XII intact, moves all extremities Results - Labs CBC & Chem 7: 12/21/21 09:17 12/24/21 08:05 Labs: Laboratory Last Values WBC 11.7 K/mm3 (4.5-11.0) H 12/21/21 09:17 RBC 2.83 M/mm3 (3.65-5.03) L 12/21/21 09:17 Hgb 8.6 gm/dl (11.8-15.2) L 12/21/21 09:17 Hct 27.4 % (35.5-45.6) L 12/21/21 09:17 MCV 97 fl (84-94) H 12/21/21 09:17 MCH 30 pg (28-32) 12/21/21 09:17 MCHC 31 % (32-34) L 12/21/21 09:17 RDW 16.0 % (13.2-15.2) H 12/21/21 09:17 Plt Count 193 K/mm3 (140-440) 12/21/21 09:17 Lymph % (Auto) 4.7 % (13.4-35.0) L 12/21/21 09:17 [place] % (Auto) 8.4 % (0.0-7.3) H 12/21/21 09:17 Eos % (Auto) 0.2 % (0.0-4.3) 12/21/21 09:17 Baso % (Auto) 0.5 % (0.0-1.8) 12/21/21 09:17 Lymph # (Auto) 0.5 K/mm3 (1.2-5.4) L 12/21/21 09:17 [place] # (Auto) 1.0 K/mm3 (0.0-0.8) H 12/21/21 09:17 Eos # (Auto) 0.0 K/mm3 (0.0-0.4) 12/21/21 09:17 Baso # (Auto) 0.1 K/mm3 (0.0-0.1) 12/21/21 09:17 Add Manual Diff Complete 11/21/21 19:36 Total Counted 100 11/21/21 19:36 Seg Neutrophils % 86.2 % (40.0-70.0) H 12/21/21 09:17 Seg Neuts % (Manual) 79.0 % (40.0-70.0) H 11/21/21 19:36 Lymphocytes % (Manual) 10.0 % (13.4-35.0) L 11/21/21 19:36 Monocytes % (Manual) 8.0 % (0.0-7.3) H 11/21/21 19:36 Basophils % (Manual) 3.0 % (0.0-1.8) H 11/21/21 19:36 Nucleated RBC % Not Reportable 11/21/21 19:36 Seg Neutrophils # 10.1 K/mm3 (1.8-7.7) H 12/21/21 09:17 Seg Neutrophils # Man 5.3 K/mm3 (1.8-7.7) 11/21/21 19:36 Band Neutrophils # 0.0 K/mm3 11/21/21 19:36 Lymphocytes # (Manual) 0.7 K/mm3 (1.2-5.4) L 11/21/21 19:36 Abs React Lymphs (Man) 0.0 K/mm3 11/21/21 19:36 Monocytes # (Manual) 0.5 K/mm3 (0.0-0.8) 11/21/21 19:36 Eosinophils # (Manual) 0.0 K/mm3 (0.0-0.4) 11/21/21 19:36 Basophils # (Manual) 0.2 K/mm3 (0.0-0.1) H 11/21/21 19:36 Metamyelocytes # 0.0 K/mm3 11/21/21 19:36 Myelocytes # 0.0 K/mm3 11/21/21 19:36 Promyelocytes # 0.0 K/mm3 11/21/21 19:36 Blast Cells # 0.0 K/mm3 11/21/21 19:36 WBC Morphology Not Reportable 11/21/21 19:36 Hypersegmented Neuts Not Reportable 11/21/21 19:36 Hyposegmented Neuts Not Reportable 11/21/21 19:36 Hypogranular Neuts Not Reportable 11/21/21 19:36 Smudge Cells Not Reportable 11/21/21 19:36 Toxic Granulation Not Reportable 11/21/21 19:36 Toxic Vacuolation Not Reportable 11/21/21 19:36 Dohle Bodies Not Reportable 11/21/21 19:36 Pelger-Huet Anomaly Not Reportable 11/21/21 19:36 Luan Rods Not Reportable 11/21/21 19:36 Platelet Estimate Consistent w auto 11/21/21 19:36 Clumped Platelets Not Reportable 11/21/21 19:36 Plt Clumps, EDTA Not Reportable 11/21/21 19:36 Large Platelets Not Reportable 11/21/21 19:36 Giant Platelets Not Reportable 11/21/21 19:36 Platelet Satelliting Not Reportable 11/21/21 19:36 Plt Morphology Comment Not Reportable 11/21/21 19:36 RBC Morphology Normal 11/21/21 19:36 Dimorphic RBCs Not Reportable 11/21/21 19:36 Polychromasia Not Reportable 11/21/21 19:36 Hypochromasia Not Reportable 11/21/21 19:36 Poikilocytosis Not Reportable 11/21/21 19:36 Anisocytosis Not Reportable 11/21/21 19:36 Microcytosis Not Reportable 11/21/21 19:36 Macrocytosis Not Reportable 11/21/21 19:36 Spherocytes Not Reportable 11/21/21 19:36 Pappenheimer Bodies Not Reportable 11/21/21 19:36 Sickle Cells Not Reportable 11/21/21 19:36 Target Cells Not Reportable 11/21/21 19:36 Tear Drop Cells Not Reportable 11/21/21 19:36 Ovalocytes Not Reportable 11/21/21 19:36 Helmet Cells Not Reportable 11/21/21 19:36 [place] Bodies Not Reportable 11/21/21 19:36 [place] Rings Not Reportable 11/21/21 19:36 [place] Cells Not Reportable 11/21/21 19:36 Bite Cells Not Reportable 11/21/21 19:36 Crenated Cell Not Reportable 11/21/21 19:36 Elliptocytes Not Reportable 11/21/21 19:36 Acanthocytes (Spur) Not Reportable 11/21/21 19:36 Rouleaux Not Reportable 11/21/21 19:36 Hemoglobin C Crystals Not Reportable 11/21/21 19:36 Schistocytes Not Reportable 11/21/21 19:36 Malaria parasites Not Reportable 11/21/21 19:36 [place] Bodies Not Reportable 11/21/21 19:36 Hem Pathologist Commnt No 11/21/21 19:36 D-Dimer 1279.46 ng/mlDDU (0-234) H 11/26/21 16:44 ABG pH 7.379 pH Units (7.350-7.450) 12/13/21 00:30 ABG pCO2 42.6 mm Hg 12/13/21 00:30 ABG pO2 125.3 mm Hg (80.0-90.0) H 12/13/21 00:30 ABG HCO3 24.6 mmol/L (20.0-26.0) 12/13/21 00:30 ABG O2 Saturation 98.4 % (95.0-99.0) 12/13/21 00:30 ABG O2 Content 14.3 (0.0-44) 12/13/21 00:30 ABG Base Excess -0.6 mmol/L (-2.0-3.0) 12/13/21 00:30 ABG Hemoglobin 10.4 gm/dl (14.0-18.0) L 12/13/21 00:30 ABG Carboxyhemoglobin 1.8 % (0.0-5.0) 12/13/21 00:30 ABG Methemoglobin 0.5 % (0.0-1.5) 12/13/21 00:30 Oxyhemoglobin 96.0 % (95.0-99.0) 12/13/21 00:30 FiO2 36 % 12/13/21 00:30 Sodium 152 mmol/L (137-145) H 12/24/21 08:05 Potassium 4.4 mmol/L (3.6-5.0) 12/24/21 08:05 Chloride 117.9 mmol/L (98-107) H 12/24/21 08:05 Carbon Dioxide 26 mmol/L (22-30) 12/24/21 08:05 Anion Gap 13 mmol/L 12/24/21 08:05 BUN 25 mg/dL (9-20) H 12/24/21 08:05 Creatinine 1.2 mg/dL (0.8-1.3) 12/24/21 08:05 Estimated GFR > 60 ml/min 12/24/21 08:05 BUN/Creatinine Ratio 21 % 12/24/21 08:05 Glucose 291 mg/dL (75-100) H 12/24/21 08:05 POC Glucose 136 mg/dL (70-105) H 12/25/21 07:31 Hemoglobin A1c 7.9 % (4-6) H 12/16/21 15:02 Osmolality 316 Mosm/kg 11/27/21 Unknown Uric Acid 9.8 mg/dL (3.5-7.6) H 11/27/21 Unknown Calcium 8.8 mg/dL (8.4-10.2) 12/24/21 08:05 Phosphorus 1.90 mg/dL (2.5-4.5) L 12/03/21 04:00 Magnesium 2.30 mg/dL (1.7-2.3) 12/07/21 05:36 Total Bilirubin 0.70 mg/dL (0.1-1.2) 12/21/21 09:17 AST 13 units/L (5-40) 12/21/21 09:17 ALT 13 units/L (7-56) 12/21/21 09:17 Alkaline Phosphatase 112 units/L (35-129) 12/21/21 09:17 Ammonia 12.0 umol/L (25-60) L 11/28/21 12:59 C-Reactive Protein 13.00 mg/dL (0.00-1.30) H 11/27/21 05:17 Total Protein 4.9 g/dL (6.3-8.2) L 12/21/21 09:17 Albumin 2.7 g/dL (3.9-5) L 12/21/21 09:17 Albumin/Globulin Ratio 1.2 % 12/21/21 09:17 Procalcitonin 3.10 ng/mL (<0.15) 11/26/21 08:21 TSH 4.800 mlU/mL (0.270-4.200) H 11/21/21 19:37 Urine Color Kimberli (Yellow) 11/27/21 Unknown Urine Turbidity Slightly-cloudy (Clear) 11/27/21 Unknown Urine pH 5.0 (5.0-7.0) 11/27/21 Unknown Ur Specific [place] 1.013 (1.003-1.030) 11/27/21 Unknown Urine Protein <15 mg/dl mg/dL (Negative) 11/27/21 Unknown Urine Glucose (UA) 50 mg/dL (Negative) 11/27/21 Unknown Urine Ketones Tr mg/dL (Negative) 11/27/21 Unknown Urine Blood Neg (Negative) 11/27/21 Unknown Urine Nitrite Neg (Negative) 11/27/21 Unknown Urine Bilirubin Neg (Negative) 11/27/21 Unknown Urine Urobilinogen < 2.0 mg/dL (<2.0) 11/27/21 Unknown Ur Leukocyte Esterase Neg (Negative) 11/27/21 Unknown Urine WBC (Auto) 13.0 /HPF (0.0-6.0) H 11/27/21 Unknown Urine RBC (Auto) 2.0 /HPF (0.0-6.0) 11/27/21 Unknown U Epithel Cells (Auto) 1.0 /HPF (0-13.0) 11/27/21 Unknown Urine Bacteria (Auto) 1+ /HPF (Negative) 11/27/21 Unknown Urine Mucus Few /HPF 11/27/21 Unknown Urine Yeast (Budding) 2+ /HPF 11/27/21 Unknown Urine Creatinine 80.9 mg/dL (0.1-20.0) H 11/27/21 Unknown Urine Sodium 36 mmol/L 11/27/21 Unknown Urine Total Protein 43 mg/dL (5-11.8) H 11/27/21 Unknown Coronavirus (PCR) Positive (Negative) A 12/17/21 08:00 SARS-CoV-2 (PCR) Positive (Negative) A 12/22/21 12:20 Fritz/IV: Voiding Method Incontinent Active Medications - Current Medications Current Medications: Generic Name Dose Route Start Last Admin Trade Name Freq PRN Reason Stop Dose Admin Albuterol 2.5 mg 11/25/21 12:00 Albuterol 2.5 Mg/3 Ml Nebu IH Q4HRT PRN Shortness Of Breath Arformoterol Tartrate 15 mcg 12/21/21 09:45 12/24/21 19:43 Arformoterol 15 Mcg/2 Ml Nebu IH 15 mcg Q12HRT NANDINI Administration Budesonide 0.5 mg 12/24/21 09:45 12/24/21 19:43 Budesonide 0.5 Mg/2 Ml Nebu IH 0.5 mg Q12HRT NANDINI Administration Dexamethasone 6 mg 12/21/21 11:00 12/24/21 09:36 Dexamethasone 4 Mg/Ml Vial IV 12/30/21 10:01 6 mg DAILY NANDINI Administration Dextrose 0 ml 12/13/21 00:12 12/16/21 23:44 Dextrose 10% *Hypoglycemia IV 250 ml PRN PRN Administration Hypoglycemia Docusate Sodium 100 mg 12/13/21 22:00 12/25/21 00:39 Docusate Sodium 100 Mg/10 Ml Oral Liqd FEEDTUBE Not Given BID NANDINI Haloperidol Lactate 5 mg 12/07/21 15:34 12/21/21 00:36 Haloperidol Lactate 5 Mg/1 Ml Inj IM 5 mg Q6H PRN Administration Agitation Dextrose 1,000 mls @ 125 mls/hr 12/24/21 11:00 12/25/21 00:48 D5w IV 125 mls/hr DIRECT NANDINI Administration Insulin Human Lispro 0 unit 12/24/21 13:00 12/25/21 00:48 Insulin Lispro 100 Unit/Ml SUB-Q 3 unit ACHS NANDINI Administration Protocol Sodium Chloride 10 ml 11/22/21 10:00 12/25/21 00:49 Sodium Chloride 0.9% 10 Ml Flush Syringe IV 10 ml BID NANDINI Administration Sodium Chloride 10 ml 12/15/21 14:19 12/23/21 22:02 Sodium Chloride 0.9% 50 Ml Ivpb IV 10 ml PRN PRN Administration FLUSH Nutrition/Malnutrition Assess - Dietary Evaluation Nutrition/Malnutrition Findings: Nutrition Notes Start: 11/22/21 14:16 Freq: Status: Active Protocol: Document 12/24/21 10:52 NICKO (Rec: 12/24/21 11:10 NICKO [id number]) Nutrition Notes Initial or Follow up Reassessment Current Diagnosis Acute Kidney Injury,Coronary Artery Disease,Hypertension, Respiratory Failure Other Pertinent Diagnosis COVID-19, Pneumonia, UTI, Acute encephalopathy, Cardiomyopathy, HFrEF. Current Diet Pureed Diet (since B 12/19). Labs/Tests 12/24: NMa 152, Cl 117.9, BUN 25, Glu 291. Pertinent Medications 12/24: Nutritionally unremarkable. Height 5 ft 11 in Weight 68.6 kg [place] Body Weight (kg) 78.18 BMI 21.1 Weight change and time frame No body weight change reported . Weight Status Underweight Subjective/Other Information RD consult for routine F/U on Dietary advancement. Pt now on PO diet, But Pt's PO intake is Negligible at the time, according to ADL notes. WIRE COILER: Patient continues to demonstrate safe swallowing function with no aspiration identified. Swallow reflex is timely. Patient is unable to masticate solid textures, therefore, recommendations are for him to continue with his current diet of pureed and thins. Pt to be dischage home on . Percent of energy/protein needs met: Prescribed Pureed Diet provides for energy/protein needs (1,804 Kcal/77 g) during LOS. Burn Absent Trauma Absent GI Symptoms None Food Allergy No Skin Integrity/Comment Clear, warm, dry. Current % PO Other Minimum of two criteria No #3 Nutrition Diagnosis Inadequate oral intake Comments: Pt now on PO diet, But Pt's PO intake is Negligible at the time, according to ADL notes. WIRE COILER: Patient continues to demonstrate safe swallowing function with no aspiration identified. Swallow reflex is timely. Patient is unable to masticate solid textures, therefore, recommendations are for him to continue with his current diet of pureed and thins. Diagnosis Progress(for reassessment Improved documentation) #2 Nutrition Diagnosis Biting/Chewing (masticatory) difficulty Diagnosis Progress(for reassessment Continues documentation) #1 Nutrition Diagnosis Underweight Diagnosis Progress(for reassessment Continues documentation) Is patient on ventilator? No Is Patient Ambulatory and/or Out of Bed Yes REE-([place]-St. Jeor-ambulatory/OOB) [ 1837.069 [id number]] Calculation Used for Recommendations [place]-St Jeor Additional Notes Protein: 1.2-2 g/Kg; 83-138 g/ day. Fluids: 1 ml/Kcal, or as per MD. Nutrition Intervention Change Diet Order: Continue Pureed Diet. Nutrition Support: d/c. Goal #1 Facilitate PO intake of meals with mechanical modification during LOS. Goal #2 Maintain body weight within +/ -3% of admission body weight during LOS. Follow-Up By: 12/31/21 Additional Comments Continue monitoring food tolerance, %PO intake of meals , and BM.
[2021-12-25] MEDS: ARFORMOTEROL 15 MCG/2 ML NEBU IH SCH (08:28)
[2021-12-25] MEDS: BUDESONIDE 0.5 MG/2 ML NEBU IH SCH (08:28)
--- NOTE | 2021-12-25 09:24 | Progress Note ---
Subjective Date of service: 12/25/21 Principal diagnosis: Acute encephalopathy, Acute resp failure, Covid PNA, CMP, chronic HFrEF Interval history: mpression * Nonoliguric acute kidney injury secondary to prerenal azotemia (FeNa 0.5%) --Baseline SCr 1.3mg/dL * Acute hypoxic respiratory failure secondary to COVID 19 PNA * Severe COVID-19 pneumonia * Hypernatremia * Hypokalemia * Acute encephalopathy * Cardiomyopathy - EF 35% * Anemia * Urinary tract infection - Klebsiella pneumonia * Mild left hydronephrosis Recommendations * Renal function now at baseline * Na is elevated at last check, on d5w * follow up mag levels and replete prn * pulm note reviewed, avoid over diuresis with hypernatremia * Continue to hold MIREYA inhibitor/ARB at this time * Encourage free water intake * Management of COVID-19 PNA per ID and primary team * Abx per ID * Maintain MAP >65 * Avoid potential nephrotoxins * Monitor lytes, fluid balance closely * Strict I/O * will follow labs peripherally Subjective Principal diagnosis: Acute encephalopathy Interval history: Patient has no complaints. No acute events overnight dc noted, but still on high flow this am Objective - General Appearance exam deferred, primary team exam noted Objective - Vital Signs Vital signs: Vital Signs - 12hr 12/24/21 12/24/21 12/25/21 22:00 22:21 01:24 Temperature 97.5 F L Pulse Rate 72 Pulse Rate [ Anterior Bilateral Throughout] Pulse Rate [ Posterior Bilateral Throughout] Respiratory 22 28 H Rate Respiratory Rate [Anterior Bilateral Throughout] Respiratory Rate [Posterior Bilateral Throughout] Blood Pressure 115/66 O2 Sat by Pulse 98 97 96 Oximetry 12/25/21 12/25/21 05:50 08:00 Temperature 97.5 F L Pulse Rate 66 Pulse Rate [ 70 Anterior Bilateral Throughout] Pulse Rate [ 68 Posterior Bilateral Throughout] Respiratory 26 H Rate Respiratory 18 Rate [Anterior Bilateral Throughout] Respiratory 16 Rate [Posterior Bilateral Throughout] Blood Pressure 129/75 O2 Sat by Pulse 96 98 Oximetry - Lab 12/21/21 09:17 12/24/21 08:05 Most recent lab results ABG pH 7.379 pH Units (7.350-7.450) 12/13/21 00:30 ABG pCO2 42.6 mm Hg 12/13/21 00:30 ABG pO2 125.3 mm Hg (80.0-90.0) H 12/13/21 00:30 ABG HCO3 24.6 mmol/L (20.0-26.0) 12/13/21 00:30 ABG O2 Saturation 98.4 % (95.0-99.0) 12/13/21 00:30 Calcium 8.8 mg/dL (8.4-10.2) 12/24/21 08:05 Phosphorus 1.90 mg/dL (2.5-4.5) L 12/03/21 04:00 Magnesium 2.30 mg/dL (1.7-2.3) 12/07/21 05:36 Urine Creatinine 80.9 mg/dL (0.1-20.0) H 11/27/21 Unknown Urine Sodium 36 mmol/L 11/27/21 Unknown Urine Total Protein 43 mg/dL (5-11.8) H 11/27/21 Unknown Medications & Allergies - Medications Allergies/Adverse Reactions: Allergies No Known Allergies Allergy (Verified 11/22/21 05:55) Home Medications: Home Medications Medication Instructions Recorded Confirmed Last Taken Type Furosemide [Lasix TAB] 80 mg PO TID 11/24/21 11/24/21 Unknown History Gabapentin 300 mg PO BID 11/24/21 11/27/21 11/19/21 09:12 History 300 mg Sacubitril/Valsartan [Entresto 1 tab PO BID 11/24/21 11/27/21 11/19/21 09:12 History 49-51 mg] 1 tab Spironolactone [Aldactone] 25 mg PO QDAY 11/24/21 11/27/21 11/19/21 09:12 History 25 mg Tamsulosin [Flomax] 0.4 mg PO QDAY 11/24/21 11/27/21 11/18/21 22:02 History 0.4 mg carvediloL [Coreg] 6.25 mg PO BID 11/24/21 11/27/21 11/19/21 09:12 History 6.25mg AtorvaSTATin [Lipitor] 40 mg PO QHS 11/27/21 11/27/21 11/19/21 09:12 History 40 mg Insulin Glargine,Hum.rec.anlog 12 unit SQ QHS 11/27/21 11/27/21 11/18/21 22:02 History [Lantus Solostar] 12 units Insulin Lispro [Admelog] 1 - 12 unit SQ TIDAC 11/27/21 11/27/21 11/19/21 08:32 History 6 units Insulin Lispro [Admelog] 4 unit SQ TID 11/27/21 11/27/21 11/19/21 08:33 History 4 units Dexamethasone 6 mg PO DAILY #7 tab 12/24/21 Unknown Rx Active Medications: Generic Name Dose Route Start Last Admin Trade Name Freq PRN Reason Stop Dose Admin Albuterol 2.5 mg 11/25/21 12:00 Albuterol 2.5 Mg/3 Ml Nebu IH Q4HRT PRN Shortness Of Breath Arformoterol Tartrate 15 mcg 12/21/21 09:45 12/25/21 08:28 Arformoterol 15 Mcg/2 Ml Nebu IH 15 mcg Q12HRT NANDINI Administration Budesonide 0.5 mg 12/24/21 09:45 12/25/21 08:28 Budesonide 0.5 Mg/2 Ml Nebu IH 0.5 mg Q12HRT NANDINI Administration Dexamethasone 6 mg 12/21/21 11:00 12/24/21 09:36 Dexamethasone 4 Mg/Ml Vial IV 12/30/21 10:01 6 mg DAILY NANDINI Administration Dextrose 0 ml 12/13/21 00:12 12/16/21 23:44 Dextrose 10% *Hypoglycemia IV 250 ml PRN PRN Administration Hypoglycemia Docusate Sodium 100 mg 12/13/21 22:00 12/25/21 00:39 Docusate Sodium 100 Mg/10 Ml Oral Liqd FEEDTUBE Not Given BID NANDINI Haloperidol Lactate 5 mg 12/07/21 15:34 12/21/21 00:36 Haloperidol Lactate 5 Mg/1 Ml Inj IM 5 mg Q6H PRN Administration Agitation Dextrose 1,000 mls @ 125 mls/hr 12/24/21 11:00 12/25/21 00:48 D5w IV 125 mls/hr DIRECT NANDINI Administration Insulin Human Lispro 0 unit 12/24/21 13:00 12/25/21 07:30 Insulin Lispro 100 Unit/Ml SUB-Q Not Given ACHS NANDINI Protocol Sodium Chloride 10 ml 11/22/21 10:00 12/25/21 00:49 Sodium Chloride 0.9% 10 Ml Flush Syringe IV 10 ml BID NANDINI Administration Sodium Chloride 10 ml 12/15/21 14:19 12/23/21 22:02 Sodium Chloride 0.9% 50 Ml Ivpb IV 10 ml PRN PRN Administration FLUSH
[2021-12-25] MEDS: dexAMETHasone 4 MG/ML VIAL IV SCH (10:07)
[2021-12-25 15:57] LABS: BUN/Creatinine Ratio 18; Blood Urea Nitrogen 24 mg/dL (9-20); Calcium 8.7 mg/dL (8.4-10.2); Hemolysis Index 5
[2021-12-25 17:53] VITALS: BP 132/77
== END 2021-12-25 16:25 | disposition hospice, home (50) | DRG 177 ==
LOC: ED 19:16 → 3A 11-22 05:48 → 4A 11-22 06:07 → OBSVTOIN 11-24 13:51 → 3A 11-26 00:42
PROVIDERS: ADMIT Hospitalist; ATTEND Hospitalist
PROC: 5A0955A Assistance with Respiratory Ventilation, Greater than 96 Consecutive Hours, High Flow/Velocity Cannula (ICD-10-PCS; principal; 2021-11-24)
PROC: XW033E5 Introduction of Remdesivir Anti-infective into Peripheral Vein, Percutaneous Approach, New Technology Group 5 (ICD-10-PCS; 2021-11-26)
PROC: XW033H5 Introduction of Tocilizumab into Peripheral Vein, Percutaneous Approach, New Technology Group 5 (ICD-10-PCS; 2021-11-27)
PROC: 4A033R1 Measurement of Arterial Saturation, Peripheral, Percutaneous Approach (ICD-10-PCS; 2021-12-13)
PROC: 0DJ08ZZ Inspection of Upper Intestinal Tract, Via Natural or Artificial Opening Endoscopic (ICD-10-PCS; 2021-12-17)
DX: U07.1 COVID-19 (principal); J96.01 Acute respiratory failure with hypoxia; J12.82 Pneumonia due to coronavirus disease 2019; N17.0 Acute kidney failure with tubular necrosis; G92.8 Other toxic encephalopathy; E46 Unspecified protein-calorie malnutrition; I42.9 Cardiomyopathy, unspecified; I50.22 Chronic systolic (congestive) heart failure; E87.0 Hyperosmolality and hypernatremia; N13.6 Pyonephrosis; E87.6 Hypokalemia; K56.41 Fecal impaction; Z68.21 Body mass index [BMI] 21.0-21.9, adult; E11.65 Type 2 diabetes mellitus with hyperglycemia; D64.9 Anemia, unspecified; I25.10 Atherosclerotic heart disease of native coronary artery without angina pectoris; I48.91 Unspecified atrial fibrillation; Z85.51 Personal history of malignant neoplasm of bladder; I11.0 Hypertensive heart disease with heart failure; Z79.4 Long term (current) use of insulin; Z82.49 Family history of ischemic heart disease and other diseases of the circulatory system
CPT/HCPCS: 36415; 36600; 70450; 71045; 74018; 74176; 76770; 80048; 80053; 81001; 82140; 82565; 82570; 82803; 82947; 82962; 83036; 83735; 83930; 84100; 84145; 84156; 84300; 84443; 84520; 84550; 85007; 85025; 85027; 85379; 86140; 87040; 87086; 93005; 93306; 94640; 94760; 99406; G0378; J3480; J3490; J7120; J7510; Q0162; Q0177; Q9967; C8929; J0690; J0696; J1100; J1170; J1630; J1644; J1650; J1815; J1940; J2060; J2270; J2405; J2704; J2930; J3010; J3262; J3475; J7030; J7040; J7050; J7070; U0003